=== PATIENT | female | born 1950 | race Caucasian/White ===

== ENCOUNTER → 2017-09-29 14:28 | Outpatient (CLI) | payer MEDICARE, SELFPAY ==
[2017-09-29 14:47] LABS: Hematocrit 41.3 % (37-47); Hemoglobin 13.3 g/dl (12.0-15.0); Mean Corp Hgb Conc 32.2 g/gl (32-36); Mean Corpuscular Hgb 29.8 pg (27.0-32.0); Mean Corpuscular Volume 92.4 fL (81-99); Mean Platelet Vol. 11.4 fl (6.2-12.0); Platelet Count 387 K/mm3 (150-450); RBC Distribution Width CV 14.5 % (11.6-14.6); RBC Distribution Width SD 47.7 fl (35.1-43.9); Red Blood Count 4.47 M/mm3 (4.2-5.4); White Blood Count 5.4 K/mm3 (4.4-11.0)
[2017-09-29 14:48] LABS: Scan Indicated on CBC? Y/N NO
[2017-09-29 15:03] LABS: Anion Gap 12 (5-15); BUN 16 mg/dL (7-18); BUN/Creat Ratio 32.8 RATIO (10-20); Calcium,Total 9.3 mg/dL (8.5-10.1); Chloride 104 mmol/L (98-107); Cholesterol 173 mg/dL (200); Creatinine, Serum 0.49 mg/dL (0.55-1.02); EST Glomerular Filtration Rate 134 mL/min (>60); Est Glom Filt Rate - Afr Amer 162 mL/min (>60); Glucose 210 mg/dL (74-106); High Density Lipoprotein 39 mg/dL; Sodium Level 139 mmol/L (136-145); Triglycerides 200 mg/dL; Very Low Density Lipoprotein 40 mg/dL (5-40)
[2017-09-29 15:10] LABS: Hemoglobin A1c 7.4 % (4.2-6.3)
[2017-09-29 15:12] LABS: Microalbumin,Random Urine 40.2 mg/L (NO RANGE EST.); Microalbumin:Creatinine Ratio 53.7 mg/g CRE (<30 mg/g CRE)
== END ==
PROVIDERS: Family Provider Internal Medicine; PCP Internal Medicine; Visit Provider Internal Medicine
DX: Z51.81 Encounter for therapeutic drug level monitoring (principal); Z79.01 Long term (current) use of anticoagulants; E11.69 Type 2 diabetes mellitus with other specified complication; E78.5 Hyperlipidemia, unspecified; E11.65 Type 2 diabetes mellitus with hyperglycemia; I10 Essential (primary) hypertension
CPT/HCPCS: 80048; 80061; 82043; 82570; 83036; 85027

== ENCOUNTER 2017-10-11 19:41 | Inpatient (IN) | payer MEDICARE, SELFPAY ==
[2017-10-11] VITALS (9 sets, daily range): BP systolic 88–132; BP diastolic 53–94; PULSE 84–110; RESP 17–23; TEMP 38.3–39.6; O2SAT 94–100; BMI 23.7
--- NOTE | 2017-10-11 19:57 | EKG12_ITS ---
Test Reason : FEVER Blood Pressure : / mmHG Vent. Rate : 105 BPM Atrial Rate : 105 BPM P-R Int : 156 ms QRS Dur : 104 ms QT Int : 348 ms P-R-T Axes : 057 -27 083 degrees QTc Int : 459 ms Sinus tachycardia with occasional Premature ventricular complexes Inferior infarct , age undetermined Abnormal ECG Confirmed by APRYL RAMOS, EDWIN ([id number]), managing editor LINDA RICHARDSON ([id number]) on 10/13/2017 2:13:01 PM Referred By: LEVI Confirmed By:EDWIN PINK MD
--- NOTE | 2017-10-11 20:10 | RAD_ITS ---
STUDY: X-RAY CHEST REASON FOR EXAM: Female, 67 years old. FEVER OF 105 WITH DARK URINE TECHNIQUE: Single frontal view of the chest. COMPARISON: April 11, 2001 FINDINGS: Chronic appearing increased interstitial lung markings. Multiple median sternotomy wires are noted consistent for cardiac surgery. There is an elevated right hemidiaphragm. There is no demonstrated pleural abnormality. Enlarged heart size. Normal mediastinum and rahat. Normal visualized pulmonary arteries. There is atherosclerotic calcification of the aortic arch with tortuosity. There are diffuse degenerative changes of the visualized thoracic spine. There is degenerative osteoarthritis of the bilateral shoulders. There is no demonstrated abnormality of the visualized soft tissue structures of the upper abdomen. RAD/Chest 1 View (Portable) IMPRESSION: There are no acute findings. Electronically Signed: Dequan Carrillo MD at 20:38 EST , Service support ,
[2017-10-11] MEDS: Acetaminophen 325 MG Tablet 650 MG PO (20:12)
[2017-10-11 20:38] LABS: Bacteria 0 SEEN /hpf (None Seen); Mucous, Urine 0 SEEN /hpf (<or=2+); White Blood Cells 0 SEEN /hpf (0-5)
[2017-10-11 20:44] LABS: Color, Urine Yellow (Yellow); Glucose, Dipstick Normal (Normal); Ketone-Dipstick 15 mg/dl (Negative); Leukocyte Esterase-Dipstick Negative /ul (Negative); Nitrite-Dipstick Negative (Negative); Occult Blood-Urine 250 /ul (Negative); Protein-Dipstick 100 mg/dl (Negative); Urine Bilirubin Dipstick Negative (Negative); Urine Clarity Clear (Clear); Urine Urobilinogen Normal (Normal)
[2017-10-11] MEDS: Ceftriaxone 1 GM/50 ML BAG IV (20:46)
[2017-10-11 20:52] LABS: Red Blood Cells-Urine 5-10 SEEN /hpf (0-5)
[2017-10-11 20:53] LABS: Squamous Epithelial Cells - UA 0-5 SEEN /hpf (5-10)
--- NOTE | 2017-10-11 20:55 | CT_ITS ---
STUDY: CT BRAIN WITHOUT CONTRAST REASON FOR EXAM: Female, 67 years old. FEVER OF 105/DARK URINE/SEPTIC RADIATION DOSAGE (If Supplied By Facility): CTDIvol = ( 44.99 ) mGy, DLP = ( 745.49 ) mGycm TECHNIQUE: Transaxial CT imaging of the brain was performed without administration of intravenous contrast material. COMPARISON: 05.11.16. FINDINGS: Normal soft tissue structures. Normal calvarium. There are calcifications around the carotid artery. These are noted in the cavernous carotid arteries. 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 There is an old left basal ganglia lacunar infarct. There is mild cerebral atrophy with widening of the extra-axial spaces and ventricular dilatation. There are areas of decreased attenuation within the white matter tracts of the supratentorial brain, consistent with microvascular disease changes. Normal basal ganglia and thalami. Normal brainstem. There is mild cerebellar atrophy. There is no intracranial hemorrhage. There are no findings of an acute ischemic infarction. There is maxillary and ethmoid sinus disease. CT/Brain/Head without Contrast IMPRESSION: Chronic involutional changes of the brain. There are no acute findings. Electronically Signed: Dequan Carrillo MD at 21:40 EST , Service support ,
[2017-10-11 21:00] LABS: Absolute Lymphocyte Count 0.47 X10^3/ul (0.83-4.51); Absolute Neutrophil Count 7.9 X10^3/uL (2.0-7.7); Basophil# 0.02 X10^3/uL; Basophil% 0.2 % (0-1); Eosinophil# 0.01 X10^3/uL; Eosinophils% 0.1 % (0-5); Hemoglobin 12.3 g/dl (12.0-15.0); Lymphocyte # 0.47 X10^3/ul (4.0); Lymphocyte % 5.3 % (19-41); Mean Corp Hgb Conc 33.2 g/gl (32-36); Mean Corpuscular Hgb 29.5 pg (27.0-32.0); Mean Corpuscular Volume 88.7 fL (81-99); Monocyte# 0.44 X10^3/uL; Neutrophil % 88.9 % (47-70); Platelet Count 212 K/mm3 (150-450); RBC Distribution Width CV 14.2 % (11.6-14.6); RBC Distribution Width SD 45.9 fl (35.1-43.9); Red Blood Count 4.17 M/mm3 (4.2-5.4); White Blood Count 8.9 K/mm3 (4.4-11.0)
[2017-10-11 21:02] LABS: Differential Indicated SCAN CRITERIA MET; POSITIVE COUNT NO; POSITIVE DIFFERENTIAL YES; POSITIVE MORPHOLOGY NO
[2017-10-11 21:05] LABS: International Normalized Ratio 2.8; Prothrombin Time (Protime)PT. 28.7 SECONDS (11.7-14.9)
[2017-10-11 21:07] LABS: Partial Thromboplast Time 74.1 Seconds (24.1-36.2)
[2017-10-11 21:22] LABS: Platelet Estimate ADEQUATE (ADEQ); Red Cell Morphology NORM C+C NORMAL (NORM C&C)
[2017-10-11 21:34] LABS: ALB/GLOB Ratio 0.7 RATIO (0.9-2.4); AST(SGOT) 25 U/L (15-37); Alanine Aminotransfer ALT/SGPT 15 U/L (13-56); Albumin, Serum 2.9 g/dL (3.2-5.0); Alkaline Phosphatase 94 U/L (45-117); Anion Gap 11 (5-15); BUN 19 mg/dL (7-18); CPK Total, Creatine Kinase 139 U/L (26-192); Calcium,Total 8.7 mg/dL (8.5-10.1); Chloride 103 mmol/L (98-107); Creatinine, Serum 0.51 mg/dL (0.55-1.02); EST Glomerular Filtration Rate 126 mL/min (>60); Est Glom Filt Rate - Afr Amer 152 mL/min (>60); Estimated Creatinine Clearance 43.92 ml/min; Globulin 3.9 g/dL (2.2-4.2); Glucose 211 mg/dL (74-106); Potassium 3.8 mmol/L (3.5-5.1); Protein, Total 6.8 g/dL (6.4-8.2); Sodium Level 135 mmol/L (136-145)
[2017-10-11] MEDS: 0.9% Normal Saline 1,000 ML 1000 ML IV ×2 (22:15)
--- NOTE | 2017-10-11 22:33 | ED.DCSUM_ITS ---
- ER Visit Summary Date of Service: 10/11/17 Chief Complaint: Son called EMS because of confusion. History of Present Illness: The patient is a 67 F who appear was been confused for the past 2-3 days. Paramedics noted dark urine. She was unaware that she had a fever. She has minimal complaints. She is not a good informant since she is disoriented. She apparently had a fall on Wednesday striking a step in her garage. She sustained significant trauma with facial swelling over the left maxillary region and temporal region. She is on Coumadin secondary to prosthetic valve. Past history of type 2 diabetes and hypertension. Physical Examination: Patient is febrile with a document temperature 103, heart rate of 105 and respiratory 23. She has abnormal irregular breathing. She has significant trauma to the left side of her face. There is a large subcutaneous hematoma noted. There is no hemotympanum. There is no CSF otorrhea or rhinorrhea. Pupils equal round reactive. There is no loose dentition. There is no TMJ tenderness. Trach is midline. There is no stridor. Lungs revealed no wheeze, rales or rhonchi. Heart is rapid with a click noted secondary to prosthetic valve. Abdomen is soft nontender with no palpable stone mass and diminished bowel sounds. There is no tenderness along the dorsal or lumbar spine. She has equivocal flank pain on the left. Extremities are unremarkable with no evidence of trauma. Skin is remarkable for multiple bruises. She is not alert nor she oriented. Hernias 2 through 12 are intact. Motor and sensory intact. Did not assess gait not able to perform Sobo testing. Test Results: White count is 8.9 thousand with 89 segs and H&H 12.0 and 37.0. INR is 2.8 with a PTT of 74.1. Urine is unremarkable. Chest x-ray is unremarkable with chronic changes. In my opinion the historian volume is limited which limits the interpretation of the x-ray. 5 panels marked for glucose of 211. CPK was obtained because of the dark colored urine and multiple bruises to evaluate for rhabdomyolysis. Her CPK is 139. Emergency Department Course and Treatment: Since patient is confused febrile tachycardic tachypnic sepsis workup was undertaken. Because of the history of head trauma and the fact is on Coumadin CT of the head was obtained. Treatment Plan: She received IV fluids per squad and received 1 g of Rocephin with presumption of urinary tract infection and the fact that she has been incontinent with a fever and dark-colored urine. I was informed at 20-20 that she was hypotensive. She will receive a 30 cc/kg bolus. She is now alert and oriented. By definition she has delirium. Since she is on Coumadin with an INR 2.8 and a PTT of 74.1 lumbar puncture is contraindicated. Disposition: Admit to ICU Impression: 1. Febrile patient with Sirs 2. Hypotension secondary #1 3. Infectious encephalopathy/delirium 4. History of hyperglycemia and type II diabetic 5. High risk medication, Coumadin, INR 2.8 6. Prosthetic valve 7. History of hypertension This note was generated with [employer] dictation software. It may contain incorrect words, spelling, and punctuation that were not noted in review of the chart prior to signing ED Disposition - Plan for ED Patient: Chief Complaint: Fever Referrals: Gwen David MD [Primary Care Provider] -
--- NOTE | 2017-10-11 23:34 | PCM.HP.STD ---
Problem List (1) SIRS (systemic inflammatory response syndrome) Status: Acute History of Present Illness Date of Admission: 10/11/17 Chief Complaint: confusion, febrile illness The patient is a 67 year old female patient who was found by her son to be confused. She had a fall in the garage injuring her face on Wednesday. She states she has been getting worse over the past two weeks. She has been afraid to seek medical care for fear of starting antibiotics and disrupting her Coumadin management. The patient presented with confusion and was a relatively poor historian with a fever of 105 and hypotension. Her initial WBC count is normal however, she does have a left shift. Initial lactate level is normal. Due to mental status changes along with a fever and an unknown source the patient will be admitted to the ICU for further evaluation. Past Medical History Allergies Calcium Channel Blocking Agent Dilt [Calcium Channel Blocking Agents-Win] Allergy (Verified 10/11/17 19:48) Rash Home Medications: Ambulatory Orders Medication Instructions Recorded Atenolol [Tenormin] 50 mg PO DAILY 07/10/13 Gemfibrozil [Lopid] 600 mg PO BIDAC 07/10/13 Lisinopril [Zestril] 10 mg PO DAILY 07/10/13 Metformin HCl [Glucophage] 500 mg PO BIDCM 07/10/13 Simvastatin [Zocor] 40 mg PO QHS 07/10/13 Warfarin Sodium [Coumadin] 4 mg PO TUTHSA 07/10/13 Warfarin Sodium [Coumadin] 6 mg PO SUMOWEFR 07/10/13 Surgical History: no surgical history Smoking Status: Former smoker - *Family History Maternal History Items: No pertinent history Review of Systems Constitutional: Reports: Chills, Fever, Weakness. Denies: Weight Change HEENT: Denies: Head Aches, Sinus Congestion, Sinus Drainage Cardiovascular: Denies: Chest Pain, Palpitations Respiratory: Denies: Cough, Shortness of breath at rest, Sputum production Gastrointestinal: Denies: Abdominal Pain, Nausea, Vomiting Genitourinary: Denies: Dysuria Musculoskeletal: Denies: Joint Pain, Joint Tenderness Skin: Denies: Rash, Wounds Neurological: Reports: Confusion. Denies: Focal weakness, Numbness, Tingling Psychiatric: Denies: Anxiety, Depression, Homicidal Ideations, Suicidal Ideations Hematologic/ Lymphatic: Denies: Easy Bruising, Easy Bleeding VTE Information - Inpt Only VTE Present on Admission: No VTE Mechan Device Prophylaxis: None VTE Pharm Prophylaxis ordered?: Yes - Physical Exam General: Alert, Cooperative, Confused HEENT: Atraumatic, PERRLA, EOMI, Normocephalic Neck: Supple Lungs: Clear to auscultation, Normal air movement Cardiovascular: Regular rate, Regular Rhythm, Normal S1, Normal S2 Abdomen: Bowel Sounds Present, Soft, Non Tender Extremities: No edema, Capillary Refill Less than 3 Seconds Skin: No rashes Musculoskeletal: No Tenderness to Palpation of Joints or Extremities Neurological: Neuro grossly intact Psych/Mental Status: Normal Affect, Appropriate Vital Signs Temp Pulse Resp BP Pulse Ox 101.0 F H 84 20 H 93/54 L 97 10/11/17 23:00 10/11/17 23:00 10/11/17 23:00 10/11/17 23:00 10/11/17 23:00 Oxygen Flow Rate 2 Oxygen Delivery Method Nasal Cannula Weight: 133 lb 13.129 oz Body Mass Index (BMI) 23.7 Laboratory Tests Past 24 Hrs 10/11/17 10/11/17 10/11/17 20:20 20:45 20:45 WBC 8.9 RBC 4.17 L Hgb 12.3 Hct 37.0 MCV 88.7 MCH 29.5 MCHC 33.2 RDW 14.2 RDW Differential 45.9 H Plt Count 212 MPV 10.0 Immature Gran % (Auto) 0.500 Neut % (Auto) 88.9 H Lymph % (Auto) 5.3 L [place] % (Auto) 5.0 Eos % (Auto) 0.1 Baso % (Auto) 0.2 Absolute Neuts (auto) 7.9 H Absolute Lymphs (auto) 0.47 L Total Counted Not Reportable Differential Comment SEE COMMENT Platelet Estimate ADEQUATE RBC Morphology NORM C+C PT 28.7 H INR 2.8 APTT 74.1 H Sodium Potassium Chloride Carbon Dioxide Anion Gap BUN Creatinine Estim Creat Clear Calc Est GFR (MDRD) Af Amer Est GFR (MDRD) Non-Af BUN/Creatinine Ratio Glucose Lactic Acid Calcium Total Bilirubin AST ALT Alkaline Phosphatase Total Creatine Kinase Total Protein Albumin Globulin Albumin/Globulin Ratio Urine Color Yellow Urine Clarity Clear Urine pH 6.0 Ur Specific [place] 1.010 Urine Protein 100 H Urine Glucose (UA) Normal Urine Ketones 15 H Urine Occult Blood 250 H Urine Nitrite Negative Urine Bilirubin Negative Urine Urobilinogen Normal Ur Leukocyte Esterase Negative Urine RBC 5-10 SEEN Urine WBC 0 SEEN Ur Squamous Epith Cells 0-5 SEEN Urine Bacteria 0 SEEN Urine Mucus 0 SEEN 10/11/17 10/11/17 20:45 20:45 WBC RBC Hgb Hct MCV MCH MCHC RDW RDW Differential Plt Count MPV Immature Gran % (Auto) Neut % (Auto) Lymph % (Auto) [place] % (Auto) Eos % (Auto) Baso % (Auto) Absolute Neuts (auto) Absolute Lymphs (auto) Total Counted Differential Comment Platelet Estimate RBC Morphology PT INR APTT Sodium 135 L Potassium 3.8 Chloride 103 Carbon Dioxide 21.0 Anion Gap 11 BUN 19 H Creatinine 0.51 L Estim Creat Clear Calc 43.92 Est GFR (MDRD) Af Amer 152 Est GFR (MDRD) Non-Af 126 BUN/Creatinine Ratio 37.0 H Glucose 211 H Lactic Acid 1.0 Calcium 8.7 Total Bilirubin 0.80 AST 25 ALT 15 Alkaline Phosphatase 94 Total Creatine Kinase 139 Total Protein 6.8 Albumin 2.9 L Globulin 3.9 Albumin/Globulin Ratio 0.7 L Urine Color Urine Clarity Urine pH Ur Specific [place] Urine Protein Urine Glucose (UA) Urine Ketones Urine Occult Blood Urine Nitrite Urine Bilirubin Urine Urobilinogen Ur Leukocyte Esterase Urine RBC Urine WBC Ur Squamous Epith Cells Urine Bacteria Urine Mucus Assessment/Plan Assessment - Acute mental status change - Febrile Illness - SIRS Plan - admit to ICU - Consult Dr Luevano for ICU management - Vancomycin and Rocephin for broad spectrum coverage - CBC, BMP, Lactate, INR in am - IV normal saline at 125cc/hour - continue routine home medications - urine tox screen - LMWH not needed due to therapeutic INR Code Visit Inpatient E&M: 53446 Init Hosp L3
[2017-10-12] VITALS (33 sets, daily range): BP systolic 82–118; BP diastolic 44–79; PULSE 82–103; RESP 17–47; TEMP 37.1–40.2; O2SAT 90–100; BMI 24.3; BMI 24.4
[2017-10-12] MEDS: Acetaminophen 325 MG Tablet 650 MG PO ×4 (01:38→20:04)
[2017-10-12 01:59] LABS: M R Staph aureus DNA By PCR Negative (Negative); Probe Check PASS; Specimen Processing Control PASS
--- NOTE | 2017-10-12 02:24 | NURSING ---
Teaching of pt's chronic conditions postponed at this time until pt clinical status less critical
[2017-10-12 04:15] LABS: Hematocrit 31.9 % (37-47); Hemoglobin 10.6 g/dl (12.0-15.0); Mean Corp Hgb Conc 33.2 g/gl (32-36); Mean Corpuscular Hgb 29.8 pg (27.0-32.0); Mean Corpuscular Volume 89.6 fL (81-99); Mean Platelet Vol. 10.2 fl (6.2-12.0); Platelet Count 189 K/mm3 (150-450); RBC Distribution Width CV 14.4 % (11.6-14.6); Red Blood Count 3.56 M/mm3 (4.2-5.4); White Blood Count 7.4 K/mm3 (4.4-11.0)
[2017-10-12 04:18] LABS: International Normalized Ratio 2.6; Prothrombin Time (Protime)PT. 26.7 SECONDS (11.7-14.9)
[2017-10-12 04:32] LABS: Anion Gap 11 (5-15); BUN 13 mg/dL (7-18); BUN/Creat Ratio 29.9 RATIO (10-20); Chloride 106 mmol/L (98-107); Creatinine, Serum 0.44 mg/dL (0.55-1.02); EST Glomerular Filtration Rate 152 mL/min (>60); Est Glom Filt Rate - Afr Amer 184 mL/min (>60); Estimated Creatinine Clearance 40.07 ml/min; Glucose 182 mg/dL (74-106); Sodium Level 139 mmol/L (136-145)
[2017-10-12 04:39] LABS: Lactic Acid 0.8 mmol/L (0.4-2.0)
[2017-10-12 04:42] LABS: Scan Indicated on CBC? Y/N NO
[2017-10-12] MEDS: 0.9% Normal Saline 1,000 ML 125 ML IV ×2 (05:20→16:05)
[2017-10-12] MEDS: 0.9% NaCl Peripheral Flush Adult/Peds IV (05:20)
[2017-10-12] MEDS: Gemfibrozil 600 MG Tablet PO ×2 (06:32→16:21)
--- NOTE | 2017-10-12 06:33 | PCM.CON.CC ---
Reason for Consult Date of Consultation: 10/12/17 Reason for Consultation: Altered mental status History of Present Illness: The patient is a 67-year-old female, with a history as outlined below, presented to the emergency department on October 11 with altered mentation of 2-3 days duration. Per documentation in the emergency department, the patient was too incoherent to obtain a thorough history. However, as of this morning, the patient is alert and appropriately interactive. She states that she has been ill for the entire month of September with URI symptoms, including rhinorrhea, nasal congestion and cough. She states that she was too afraid to see a doctor, as each time she is placed on antibiotics it interferes with her Coumadin. Over the last 48-72 hours, the patient's symptoms have increased and she became febrile. She also reports feeling confused. She is did sustain a mechanical fall in her home approximately 4 days ago, which led to facial contusions. The patient reports that she has a history of falls and is oftentimes clumsy and uneasy on her feet. She does have a mechanical mitral valve in place, for which she is anticoagulated on Coumadin. She denies a history of alcohol or drug abuse. She denies tobacco abuse. She currently resides with her son. The patient's primary care provider is Dr. David. She reports no known sick contact exposure. She states that she has a history of irritable bowel syndrome and does have intermittent bouts of diarrhea. She does report a history of a mild degree of dysuria and increased urinary frequency. On presentation to the emergency department, the patient was noted to be febrile with a temperature of 103?F. She was tachycardic and hemodynamically stable. She was maintaining appropriate oxygen saturations on room air. Laboratory evaluation revealed no evidence of a leukocytosis. INR was noted to be 2.8. Chemistry profile was largely unremarkable. Urinalysis was unrevealing for the presence of an infection. MRSA screen was negative. CT had revealed chronic involutional changes without acute findings. Prior echocardiogram from January 2016 revealed normal LV size and function with an ejection fraction of 60%. There was a stable appearing [place] prosthetic mitral valve in place. Right ventricular systolic pressure was estimated to be 31 mmHg. Past Medical History Allergies Calcium Channel Blocking Agent Dilt [Calcium Channel Blocking Agents-Win] Allergy (Verified 10/11/17 19:48) Rash Home Medications: Ambulatory Orders Medication Instructions Recorded Atenolol [Tenormin] 50 mg PO DAILY 07/10/13 Gemfibrozil [Lopid] 600 mg PO BIDAC 07/10/13 Lisinopril [Zestril] 10 mg PO DAILY 07/10/13 Metformin HCl [Glucophage] 500 mg PO BIDCM 07/10/13 Simvastatin [Zocor] 40 mg PO QHS 07/10/13 Warfarin Sodium [Coumadin] 4 mg PO TUTHSA 07/10/13 Warfarin Sodium [Coumadin] 6 mg PO SUMOWEFR 07/10/13 Surgical History: no surgical history Smoking Status: Former smoker - *Family History Maternal History Items: No pertinent history Review of Systems Constitutional: Reports: Chills, Fever Eyes: Denies: Blurred vision, Double vision HEENT: Reports: Nasal Congestion, Sinus Drainage Cardiovascular: Denies: Chest Pain, Palpitations Respiratory: Reports: Cough. Denies: Shortness of Breath, Sputum production Gastrointestinal: Reports: Diarrhea. Denies: Abdominal Pain, Nausea, Vomiting Genitourinary: Reports: Dysuria, Frequency Musculoskeletal: Denies: Joint Pain, Joint Tenderness Skin: Denies: Rash, Wounds Neurological: Reports: Balance problems Psychiatric: Denies: Anxiety, Depression, Homicidal Ideations, Suicidal Ideations Hematologic/ Lymphatic: Reports: Easy Bruising Patient Problems: Active and Suspected Problems Bacteremia (Acute) Objective: The patient's most recent lab work, culture data and imaging studies have all been personally reviewed. Respiratory viral panel, blood and urine cultures are pending. - Physical Exam General: Alert, Oriented x3, Cooperative, No apparent distress HEENT: PERRLA, Normocephalic, - - Left facial ecchymoses present Oral: Moist Mucosa, No Gingival or Mucosal Lesions/ Ulcerations, - - Poor dentition Neck: Supple, No Nodes, Trachea Midline Lungs: Normal air movement, No rhonchi, No wheeze, No rales Cardiovascular: Regular rate, Regular Rhythm, Normal S1, Normal S2, Murmur, - - Systolic click Abdomen: Bowel Sounds Present, Soft, Non Tender Extremities: No clubbing, No cyanosis, No edema Skin: - - Facial ecchymoses as noted above Musculoskeletal: No Tenderness to Palpation of Joints or Extremities Lymphatic: No Cervical, Supraclavicular, or Inguinal Adenopathy Neurological: Neuro grossly intact Psych/Mental Status: Normal Affect, Appropriate Vital Signs Temp Pulse Resp BP Pulse Ox 100.7 F H 82 27 H 94/46 L 96 10/12/17 06:00 10/12/17 06:00 10/12/17 06:00 10/12/17 06:00 10/12/17 06:00 Oxygen Flow Rate 1 Oxygen Delivery Method Room Air Weight: 131 lb 2.801 oz Body Mass Index (BMI) 24.3 Intake and Output for Last 24 Hours 10/10/17 10/11/17 10/12/17 23:59 23:59 23:59 Intake Total 2880 / 2880 Output Total 1150 / 1150 Balance 1730 / 1730 Laboratory Tests Past 24 Hrs 10/12/17 10/12/17 10/12/17 00:30 04:00 04:00 WBC 7.4 RBC 3.56 L Hgb 10.6 L Hct 31.9 L MCV 89.6 MCH 29.8 MCHC 33.2 RDW 14.4 RDW Differential 46.0 H Plt Count 189 MPV 10.2 PT INR Sodium 139 Potassium 3.0 L Chloride 106 Carbon Dioxide 22.0 Anion Gap 11 BUN 13 Creatinine 0.44 L Estim Creat Clear Calc 40.07 Est GFR (MDRD) Af Amer 184 Est GFR (MDRD) Non-Af 152 BUN/Creatinine Ratio 29.9 H Glucose 182 H Lactic Acid Calcium 8.0 L MRSA (PCR) Negative 10/12/17 10/12/17 04:00 04:00 WBC RBC Hgb Hct MCV MCH MCHC RDW RDW Differential Plt Count MPV PT 26.7 H INR 2.6 Sodium Potassium Chloride Carbon Dioxide Anion Gap BUN Creatinine Estim Creat Clear Calc Est GFR (MDRD) Af Amer Est GFR (MDRD) Non-Af BUN/Creatinine Ratio Glucose Lactic Acid 0.8 Calcium MRSA (PCR) Clinical Impression(s) from Imaging Studies Chest X-Ray 10/11/17 20:10 IMPRESSION: There are no acute findings. Electronically Signed: Dequan Carrillo MD at 20:38 EST , Service support , ADDENDUM: 10/11/172045 IMPRESSION: There are no acute findings. Electronically Signed: Dequan Carrillo MD at 20:39 EST , Service support , Brain CT 10/11/17 20:55 IMPRESSION: Chronic involutional changes of the brain. There are no acute findings. Electronically Signed: Dequan Carrillo MD at 21:40 EST , Service support , Assessment/Plan Active and Suspected Problems Bacteremia (Acute) RECOMMENDATIONS: 1. Send urine toxicology screen. Check serum TSH level. 2. Hold Coumadin for now. Start DVT prophylaxis with subcu heparin. Monitor INR daily. 3. Potassium repletion. Check serum magnesium level. 4. Continue broad-spectrum antibiotics, pending infectious workup 5. Given the patient's high-grade fevers, will obtain echocardiogram given prosthetic mitral valve history and positive blood cultures 6. Check full respiratory viral panel 7. Hold metformin and start sliding scale insulin coverage 8. Send repeat blood cultures tomorrow IMPRESSIONS: 1. Sepsis 2/2 Gram Positive Bacteremia The patient is currently being maintained on appropriate antibiotics. She has been adequately volume resuscitated at this time. Supplemental IV fluids can be discontinued, pending improvement in the patient's p.o. intake. Given that the patient has a prosthetic mitral valve in place, will obtain surface echocardiogram, given positive blood cultures. Resend blood cultures tomorrow. Infectious diseases consultation is pending. 2. Transient infectious encephalopathy/delirium Likely secondary to #1. However, we will also send toxicology screen and check TSH. A full respiratory viral panel will also be sent. 3. Hypokalemia/hypomagnesemia Electrolyte repletion is underway. Recheck levels in the morning. 4. History of Recurrent Mechanical Falls Recommend formal PT/OT evaluations, once medically stable. 5. History of mechanical mitral valve replacement/hypertension/hyperlipidemia/diabetes Complicates care, management, recovery and prognosis. Hold antihypertensive medications at this time. Discontinue metformin and initiate patient on sliding scale insulin coverage. Hold Coumadin at this time and check INR daily. This note was generated with [employer] software. It may contain incorrect words, spelling, and punctuation that were not noted in checking the note before signing. Code Visit Inpatient E&M: 94137 Init Hosp L3
--- NOTE | 2017-10-12 06:36 | RAD_ITS ---
STUDY: X-RAY CHEST REASON FOR EXAM: Female, 67 years old. Shortness of breath and fever. TECHNIQUE: Single AP portable view of the chest. COMPARISON: Comparison is made with prior examination dated October 11, 2017. FINDINGS: EKG electrodes are seen. Stable elevation of the right hemidiaphragm. Mild increase in linear markings most likely chronic in nature. There has been essentially no change. There is no demonstrated pleural abnormality. Sternal cerclage wires and vascular clips are present from a prior sternotomy and coronary artery bypass graft procedure (CABG). Normal mediastinum and rahat. Normal visualized pulmonary arteries. There is atherosclerotic calcification of the aortic arch with tortuosity. There are degenerative changes of the visualized thoracic spine. Prior pinning of the fracture of the proximal left humerus with a marked degree of joint space narrowing of the left shoulder. There is no demonstrated abnormality of the visualized soft tissue structures of the upper abdomen. RAD/Chest 1 View (Portable) IMPRESSION: Stable examination. Electronically Signed: Abelino Davenport MD at 8:18 EST Tel [phone], Service support ,
--- NOTE | 2017-10-12 06:44 | ECHOD_ITS ---
Reason For Study: MURMUR Procedure This was a 2D Doppler, Color Flow transthoracic echocardiogram. Exam performed portable in ICU/CCU. Left Ventricle Normal LV size. Left ventricular systolic function is normal. The estimated ejection fraction is 60 %. No evidence for diastolic dysfunction. No regional wall motion abnormalities noted. Right Ventricle Normal RV size. Normal systolic function. Atria Normal left atrium. Normal right atrium. Mitral Valve Stable appearing mechanical mitral valve apparatus. Tricuspid Valve Normal tricuspid valve. Mild (1+) tricuspid valve insufficiency. Pulmonary artery systolic pressure is 37 mmHg. Aortic Valve Trisinus/trileaflet aortic valve. Peak aortic valve gradient 27 mmHg. Mean aortic valve gradient 16 mmHg. Mild aortic stenosis. Pulmonic Valve Normal pulmonic valve. Great Vessels Normal aortic root. The pulmonary artery is normal size. Normal inferior vena cava. Pericardium/Pleural No pericardial effusion. MMode/2D Measurements & Calculations LVIDd: 4.8 cm IVSd: 1.0 cm LVOT diam: 1.9 cm LVIDs: 3.4 cm LVPWd: 1.2 cm LVOT area: 2.8 cm2 RVDd: 2.6 cm FS: 28.3 % Ao root diam: 3.3 cm LAV(MOD-sp4): 61.0 ml EDV(MOD-sp4): 82.8 ml LA dimension: 4.5 cm ESV(MOD-sp4): 29.8 ml EF(MOD-sp4): 64.0 % EDV(MOD-sp2): 64.3 ml SV(MOD-sp4): 53.0 ml SV(MOD-sp2): 44.4 ml EF(MOD-sp2): 69.1 % Aortic Valve Planimetry: 1.2 cm2 LA A4 area: 20.9 cm2 RA A4 area: 15.7 cm2 Doppler Measurements & Calculations MV E max lisa: 154.3 cm/sec MV V2 max: 171.0 cm/sec Ao V2 max: 262.4 cm/sec MV A max lisa: 71.3 cm/sec MV max P.7 mmHg Ao max P.5 mmHg MV E/A: 2.2 MV V2 mean: 98.5 cm/sec Ao V2 mean: 183.7 cm/sec MV mean P.5 mmHg Ao mean P.4 mmHg MV V2 VTI: 30.7 cm Ao V2 VTI: 45.2 cm MVA(VTI): 1.9 cm2 HKAEEM(I,D): 1.3 cm2 HAKEEM(V,D): 1.2 cm2 LV V1 max: 108.8 cm/sec SV(LVOT): 57.7 ml PA V2 max: 119.0 cm/sec LV V1 max P.7 mmHg LV V1 mean P.5 mmHg LV V1 mean: 73.9 cm/sec LV V1 VTI: 20.7 cm PI end-d lisa: 107.5 cm/sec TR max lisa: 284.3 cm/sec TR max P.3 mmHg Interpretation Summary Normal LV size. Left ventricular systolic function is normal. The estimated ejection fraction is 60 %. Mean aortic valve gradient 16 mmHg. Stable appearing mechanical mitral valve apparatus. Compared to prior study, there is no significant change. Ordering Physician: Donnie Luevano D.O. Referring Physician: Gwen David Performed By: Maru Amos, RDCS, RVT
--- NOTE | 2017-10-12 06:51 | CON.PCM_ITS ---
Reason for Consult Date of Consultation: 10/12/17 Reason for Consultation: Altered mental status History of Present Illness: The patient is a 67-year-old female, with a history as outlined below, presented to the emergency department on October 11 with altered mentation of 2 -3 days duration. Per documentation in the emergency department, the patient was too incoherent to obtain a thorough history. However, as of this morning, the patient is alert and appropriately interactive. She states that she has been ill for the entire month of September with URI symptoms, including rhinorrhea, nasal congestion and cough. She states that she was too afraid to see a doctor, as each time she is placed on antibiotics it interferes with her Coumadin. Over the last 48-72 hours, the patient's symptoms have increased and she became febrile. She also reports feeling confused. She is did sustain a mechanical fall in her home approximately 4 days ago, which led to facial contusions. The patient reports that she has a history of falls and is oftentimes clumsy and uneasy on her feet. She does have a mechanical mitral valve in place, for which she is anticoagulated on Coumadin. She denies a history of alcohol or drug abuse. She denies tobacco abuse. She currently resides with her son. The patient's primary care provider is Dr. David. She reports no known sick contact exposure. She states that she has a history of irritable bowel syndrome and does have intermittent bouts of diarrhea. She does report a history of a mild degree of dysuria and increased urinary frequency. On presentation to the emergency department, the patient was noted to be febrile with a temperature of 103?F. She was tachycardic and hemodynamically stable. She was maintaining appropriate oxygen saturations on room air. Laboratory evaluation revealed no evidence of a leukocytosis. INR was noted to be 2.8. Chemistry profile was largely unremarkable. Urinalysis was unrevealing for the presence of an infection. MRSA screen was negative. CT had revealed chronic involutional changes without acute findings. Prior echocardiogram from January 2016 revealed normal LV size and function with an ejection fraction of 60%. There was a stable appearing [place] prosthetic mitral valve in place. Right ventricular systolic pressure was estimated to be 31 mmHg. Past Medical History Allergies Calcium Channel Blocking Agent Dilt [Calcium Channel Blocking Agents-Win] Allergy (Verified 10/11/17 19:48) Rash Home Medications: Ambulatory Orders Medication Instructions Recorded Atenolol [Tenormin] 50 mg PO DAILY 07/10/13 Gemfibrozil [Lopid] 600 mg PO BIDAC 07/10/13 Lisinopril [Zestril] 10 mg PO DAILY 07/10/13 Metformin HCl [Glucophage] 500 mg PO BIDCM 07/10/13 Simvastatin [Zocor] 40 mg PO QHS 07/10/13 Warfarin Sodium [Coumadin] 4 mg PO TUTHSA 07/10/13 Warfarin Sodium [Coumadin] 6 mg PO SUMOWEFR 07/10/13 Surgical History: no surgical history Smoking Status: Former smoker - *Family History Maternal History Items: No pertinent history Review of Systems Constitutional: Reports: Chills, Fever Eyes: Denies: Blurred vision, Double vision HEENT: Reports: Nasal Congestion, Sinus Drainage Cardiovascular: Denies: Chest Pain, Palpitations Respiratory: Reports: Cough. Denies: Shortness of Breath, Sputum production Gastrointestinal: Reports: Diarrhea. Denies: Abdominal Pain, Nausea, Vomiting Genitourinary: Reports: Dysuria, Frequency Musculoskeletal: Denies: Joint Pain, Joint Tenderness Skin: Denies: Rash, Wounds Neurological: Reports: Balance problems Psychiatric: Denies: Anxiety, Depression, Homicidal Ideations, Suicidal Ideations Hematologic/ Lymphatic: Reports: Easy Bruising Patient Problems: Active and Suspected Problems Bacteremia (Acute) Objective: The patient's most recent lab work, culture data and imaging studies have all been personally reviewed. Respiratory viral panel, blood and urine cultures are pending. - Physical Exam General: Alert, Oriented x3, Cooperative, No apparent distress HEENT: PERRLA, Normocephalic, - - Left facial ecchymoses present Oral: Moist Mucosa, No Gingival or Mucosal Lesions/ Ulcerations, - - Poor dentition Neck: Supple, No Nodes, Trachea Midline Lungs: Normal air movement, No rhonchi, No wheeze, No rales Cardiovascular: Regular rate, Regular Rhythm, Normal S1, Normal S2, Murmur, - - Systolic click Abdomen: Bowel Sounds Present, Soft, Non Tender Extremities: No clubbing, No cyanosis, No edema Skin: - - Facial ecchymoses as noted above Musculoskeletal: No Tenderness to Palpation of Joints or Extremities Lymphatic: No Cervical, Supraclavicular, or Inguinal Adenopathy Neurological: Neuro grossly intact Psych/Mental Status: Normal Affect, Appropriate Vital Signs Temp Pulse Resp BP Pulse Ox 100.7 F H 82 27 H 94/46 L 96 10/12/17 06:00 10/12/17 06:00 10/12/17 06:00 10/12/17 06:00 10/12/17 06:00 Oxygen Flow Rate 1 Oxygen Delivery Method Room Air Weight: 131 lb 2.801 oz Body Mass Index (BMI) 24.3 Intake and Output for Last 24 Hours 10/10/17 10/11/17 10/12/17 23:59 23:59 23:59 Intake Total 2880 / 2880 Output Total 1150 / 1150 Balance 1730 / 1730 Laboratory Tests Past 24 Hrs 10/12/17 10/12/17 10/12/17 00:30 04:00 04:00 WBC 7.4 RBC 3.56 L Hgb 10.6 L Hct 31.9 L MCV 89.6 MCH 29.8 MCHC 33.2 RDW 14.4 RDW Differential 46.0 H Plt Count 189 MPV 10.2 PT INR Sodium 139 Potassium 3.0 L Chloride 106 Carbon Dioxide 22.0 Anion Gap 11 BUN 13 Creatinine 0.44 L Estim Creat Clear Calc 40.07 Est GFR (MDRD) Af Amer 184 Est GFR (MDRD) Non-Af 152 BUN/Creatinine Ratio 29.9 H Glucose 182 H Lactic Acid Calcium 8.0 L MRSA (PCR) Negative 10/12/17 10/12/17 04:00 04:00 WBC RBC Hgb Hct MCV MCH MCHC RDW RDW Differential Plt Count MPV PT 26.7 H INR 2.6 Sodium Potassium Chloride Carbon Dioxide Anion Gap BUN Creatinine Estim Creat Clear Calc Est GFR (MDRD) Af Amer Est GFR (MDRD) Non-Af BUN/Creatinine Ratio Glucose Lactic Acid 0.8 Calcium MRSA (PCR) Clinical Impression(s) from Imaging Studies Chest X-Ray 10/11/17 20:10 IMPRESSION: There are no acute findings. Electronically Signed: Dequan Carrillo MD at 20:38 EST , Service support , ADDENDUM: 10/11/172045 IMPRESSION: There are no acute findings. Electronically Signed: Dequan Carrillo MD at 20:39 EST , Service support , Brain CT 10/11/17 20:55 IMPRESSION: Chronic involutional changes of the brain. There are no acute findings. Electronically Signed: Dequan Carrillo MD at 21:40 EST , Service support , Assessment/Plan Active and Suspected Problems Bacteremia (Acute) RECOMMENDATIONS: 1. Send urine toxicology screen. Check serum TSH level. 2. Hold Coumadin for now. Start DVT prophylaxis with subcu heparin. Monitor INR daily. 3. Potassium repletion. Check serum magnesium level. 4. Continue broad-spectrum antibiotics, pending infectious workup 5. Given the patient's high-grade fevers, will obtain echocardiogram given prosthetic mitral valve history and positive blood cultures 6. Check full respiratory viral panel 7. Hold metformin and start sliding scale insulin coverage 8. Send repeat blood cultures tomorrow IMPRESSIONS: 1. Sepsis 2/2 Gram Positive Bacteremia The patient is currently being maintained on appropriate antibiotics. She has been adequately volume resuscitated at this time. Supplemental IV fluids can be discontinued, pending improvement in the patient's p.o. intake. Given that the patient has a prosthetic mitral valve in place, will obtain surface echocardiogram, given positive blood cultures. Resend blood cultures tomorrow. Infectious diseases consultation is pending. 2. Transient infectious encephalopathy/delirium Likely secondary to #1. However, we will also send toxicology screen and check TSH. A full respiratory viral panel will also be sent. 3. Hypokalemia/hypomagnesemia Electrolyte repletion is underway. Recheck levels in the morning. 4. History of Recurrent Mechanical Falls Recommend formal PT/OT evaluations, once medically stable. 5. History of mechanical mitral valve replacement/hypertension/hyperlipidemia/ diabetes Complicates care, management, recovery and prognosis. Hold antihypertensive medications at this time. Discontinue metformin and initiate patient on sliding scale insulin coverage. Hold Coumadin at this time and check INR daily. This note was generated with [employer] software. It may contain incorrect words, spelling, and punctuation that were not noted in checking the note before signing. Code Visit Inpatient E&M: 66196 Init Hosp L3
[2017-10-12 07:27] LABS: Thyroid Stim Hormone (TSH) 0.44 uIU/mL (0.358-3.74)
--- NOTE | 2017-10-12 07:28 | PN_ITS ---
Subjective: Patient is a 67-year-old lady with history of mechanical mitral valve admitted with acute febrile illness. Patient admitted to the intensive care unit. Blood cultures obtained coming back positive for gram-positive cocci in chains. Patient currently on broad-spectrum antibiotic therapy with vancomycin and cefepime. 2D echo ordered Objective: GENERAL: cooperative HEENT: Clear conjunctiva, NECK; supple, normal thyroid, CHEST: Clear to auscultation bilaterally, HEART: Regular S1 S2, systolic click ABDOMEN: soft, non-tender, normoactive bowel sounds, RECTAL: deferred EXTREMITIES: No edema, no clubbing, no cyanosis. GEOLOGICAL E LOGGER: Awake, no lateralizing signs. SKIN: facial bruising Vitals/I&O's: Vital Signs Temp Pulse Resp BP Pulse Ox 100.7 F H 82 27 H 94/46 L 96 10/12/17 06:00 10/12/17 06:00 10/12/17 06:00 10/12/17 06:00 10/12/17 06:00 Oxygen Flow Rate 1 Oxygen Delivery Method Room Air Weight: 59.5 kg Body Mass Index (BMI) 24.3 Intake and Output for Last 24 Hours 10/10/17 10/11/17 10/12/17 23:59 23:59 23:59 Intake Total 2880 / 2880 Output Total 1150 / 1150 Balance 1730 / 1730 Laboratory Results 10/12/17 00:30: MRSA (PCR) Negative 10/12/17 04:00: WBC 7.4, RBC 3.56 L, Hgb 10.6 L, Hct 31.9 L, MCV 89.6, MCH 29.8 , MCHC 33.2, RDW 14.4, RDW Differential 46.0 H, Plt Count 189, MPV 10.2 10/12/17 04:00: Sodium 139, Potassium 3.0 L, Chloride 106, Carbon Dioxide 22.0, Anion Gap 11, BUN 13, Creatinine 0.44 L, Estim Creat Clear Calc 40.07, Est GFR ( MDRD) Af Amer 184, Est GFR (MDRD) Non-Af 152, BUN/Creatinine Ratio 29.9 H, Glucose 182 H, Calcium 8.0 L 10/12/17 04:00: Lactic Acid 0.8 10/12/17 04:00: PT 26.7 H, INR 2.6 10/12/17 04:00: TSH 0.44 10/12/17 06:45: Urine Opiates Screen Pending, Urine Methadone Screen Pending, Ur Barbiturates Screen Pending, Ur Phencyclidine Scrn Pending, Ur Amphetamines Screen Pending, U Methamphetamin-MDMA Pending, U Benzodiazepines Scrn Pending, Urine Cocaine Screen Pending, U Cannabinoids Screen Pending, Ur Drug Screen Comment Current Medications Acetaminophen (Tylenol) 650 mg PO Q6H PRN PRN PRN Reason: FEVER Last Admin: 10/12/17 01:38 Dose: 650 mg Atorvastatin Calcium (Lipitor) 20 mg PO QHS EFREN Dextrose (D50w Syringe) 0 gm IV X1 PRN; Protocol PRN Reason: Hypoglycemia Gemfibrozil (Lopid) 600 mg PO BIDAC EFREN Last Admin: 10/12/17 06:32 Dose: 600 mg Glucagon () 1 mg IM .X1 PRN PRN Reason: Hypoglycemia Heparin Sodium (Porcine) (Heparin Na) 5,000 unit SC Q8 EFREN Last Admin: 10/12/17 06:39 Dose: 5,000 u Sodium Chloride () 250 mls @ 15 mls/hr IV .[id number] PRN PRN Reason: SALINE FLUSH Vancomycin HCl (Vancomycin) 1,000 mg in 200 mls @ 200 mls/hr IV Q12H EFREN Sodium Chloride () 1,000 mls @ 125 mls/hr IV .Q8H EFREN Last Admin: 10/12/17 05:20 Dose: 125 mls/hr Cefepime HCl 2 gm/ Sodium (Chloride) 100 mls @ 200 mls/hr IV Q8 EFREN Potassium Chloride 40 meq/ (Sodium Chloride) 520 mls @ 130 mls/hr IV Q4H [facility] Stop: 10/12/17 11:29 Insulin Aspart (Novolog Flexpen (Bkc)) 0 units SC ACHS EFREN PRN Reason: Protocol Magnesium Hydroxide (Milk Of Magnesia) 30 ml PO DAILY PRN PRN PRN Reason: Constipation Nutritional Formula (Lactose Free) (Ensure Enlive) 120 ml PO 4X/DAY EFREN Sodium Chloride () 5 - 30 ml IV UD PRN PRN Reason: SALINE FLUSH Last Admin: 10/12/17 05:20 Dose: 10 ml Assessment/Plan Patient is a 67-year-old lady with history of mechanical mitral valve admitted with acute febrile illness. Patient admitted to the intensive care unit. Blood cultures obtained coming back positive for gram-positive cocci in chains. Patient on broad-spectrum antibiotic therapy with vancomycin and cefepime 1. Acute febrile illness: Patient is bacteremic with gram positive cocci in chains transthoracic echo has been ordered to rule out endocarditis patient on vancomycin and cefepime consultation placed to infectious disease 2. History of mitral valve replacement with mechanical valve on systemic anticoagulation with Coumadin INR is therapeutic 3. Recurrent falls with left facial contusion plan is to obtain PT and OT eval once patient medical condition is stabilized 4. Dyslipidemia-patient is on statin therapy, continued at home dose 5. Hypertension patient blood pressure currently on the low side 6. DVT prophylaxis on Coumadin no need for additional measures Code Visit Inpatient E&M: 93865 [facility] Hosp L3
[2017-10-12 07:46] LABS: Magnesium 1.4 mg/dL (1.6-2.6)
[2017-10-12 07:56] LABS: Amphetamine Urine VISTA NEGATIVE (<1000 ng/mL); Barbiturate Urine VISTA NEGATIVE (< 200 ng/mL); Benzodiazepine Urine VISTA NEGATIVE (< 200 ng/mL); Cocaine Urine VISTA NEGATIVE (< 300 ng/mL); Ecstacy Urine VISTA NEGATIVE (< 500 ng/mL); Methadone Urine VISTA NEGATIVE (< 300 ng/mL); PCP Urine VISTA NEGATIVE (< 25 ng/mL); THC Urine VISTA NEGATIVE (< 50 ng/mL); Vista UDS pH Range 6
[2017-10-12 08:26] LABS: Bedside Glucose 127 mg/dL (70-110)
--- NOTE | 2017-10-12 09:41 | CASEMGMT ---
See RN CM Assessment Link. DC Plan: Home. Pt states she is independent, does not use DME, was doing own shopping, ADL's. Nursing did note rings and earrings were dirty on removal, however pt was not unkempt on arrival. -noted pt admits to frequent falls. Will follow PT/OT evaluations for recommendations. Pt was adamant re: returning home. If homebound, may benefit from [facility]. Collin CERONN RN ACM
[2017-10-12] MEDS: Glucerna Shake 120 ML LIQUID PO ×2 (09:58→22:01)
--- NOTE | 2017-10-12 10:54 | PCM.HP.ID ---
Problem List (1) Bacteremia Status: Acute Reason for Consult: (+) bcx Consulted by: Dr. Breaux History of Present Illness: The patient is a 67 year old F with h/o mech MVR in 2001 at [facility], no prior h/o endocarditis, who presented with several weeks of not feeling well. Last dental work was over the summer, and she takes amox as prophylaxis. No current dental problems. Had URI in August, took course of abx, and INR went over 8. For past 2-3 weeks, had some intermittent diffuse abd pain, mild in severity. No blood in stool. Reports normal colonoscopy about 6 years ago and negative guaiac panel since then. Reports some pain with sitting, but this and abd pain have since resolved. Noticed increasing chills over the past week and some increased urine frequency. No dysuria. Only utis in the past have been with nayak placement. Several days ago, tripped and fell at home, bruising her face. Continued to feel worse, so came to ED. Bcx sent, started on vanc and cefepime. Now Bcx with GPC in chains in both sets. No joint or back pain. Full ROS performed and neg except as noted above. - Medical History Allergies/Adverse Reactions: Allergies Calcium Channel Blocking Agent Dilt [Calcium Channel Blocking Agents-Win] Allergy (Verified 10/11/17 19:48) Rash Home Medications: Ambulatory Orders Medication Instructions Recorded Atenolol [Tenormin] 50 mg PO DAILY 07/10/13 Gemfibrozil [Lopid] 600 mg PO BIDAC 07/10/13 Lisinopril [Zestril] 10 mg PO DAILY 07/10/13 Metformin HCl [Glucophage] 500 mg PO BIDCM 07/10/13 Simvastatin [Zocor] 40 mg PO QHS 07/10/13 Warfarin Sodium [Coumadin] 4 mg PO TUTHSA 07/10/13 Warfarin Sodium [Coumadin] 6 mg PO SUMOWEFR 07/10/13 - Social History SMOKING STATUS:: Former smoker Vital Signs Temp Pulse Resp BP Pulse Ox 102.2 F H 93 22 H 118/62 97 10/12/17 08:00 10/12/17 08:00 10/12/17 08:00 10/12/17 08:00 10/12/17 09:21 Oxygen Flow Rate 1 Oxygen Delivery Method Room Air Weight: 59.5 kg Body Mass Index (BMI) 24.3 Microbiology Past 72 Hours 10/12/17 06:50 Respiratory Panel (PCR) - Final Mucosa - Nose Laboratory Tests Past 24 Hrs 10/12/17 10/12/17 10/12/17 00:30 04:00 04:00 WBC 7.4 RBC 3.56 L Hgb 10.6 L Hct 31.9 L MCV 89.6 MCH 29.8 MCHC 33.2 RDW 14.4 RDW Differential 46.0 H Plt Count 189 MPV 10.2 PT INR Sodium 139 Potassium 3.0 L Chloride 106 Carbon Dioxide 22.0 Anion Gap 11 BUN 13 Creatinine 0.44 L Estim Creat Clear Calc 40.07 Est GFR (MDRD) Af Amer 184 Est GFR (MDRD) Non-Af 152 BUN/Creatinine Ratio 29.9 H Glucose 182 H Lactic Acid Calcium 8.0 L Magnesium TSH Urine Opiates Screen Urine Methadone Screen Ur Barbiturates Screen Ur Phencyclidine Scrn Ur Amphetamines Screen U Methamphetamin-MDMA U Benzodiazepines Scrn Urine Cocaine Screen U Cannabinoids Screen Ur Drug Screen Comment MRSA (PCR) Negative 10/12/17 10/12/17 10/12/17 04:00 04:00 04:00 WBC RBC Hgb Hct MCV MCH MCHC RDW RDW Differential Plt Count MPV PT 26.7 H INR 2.6 Sodium Potassium Chloride Carbon Dioxide Anion Gap BUN Creatinine Estim Creat Clear Calc Est GFR (MDRD) Af Amer Est GFR (MDRD) Non-Af BUN/Creatinine Ratio Glucose Lactic Acid 0.8 Calcium Magnesium TSH 0.44 Urine Opiates Screen Urine Methadone Screen Ur Barbiturates Screen Ur Phencyclidine Scrn Ur Amphetamines Screen U Methamphetamin-MDMA U Benzodiazepines Scrn Urine Cocaine Screen U Cannabinoids Screen Ur Drug Screen Comment MRSA (PCR) 10/12/17 10/12/17 04:50 06:45 WBC RBC Hgb Hct MCV MCH MCHC RDW RDW Differential Plt Count MPV PT INR Sodium Potassium Chloride Carbon Dioxide Anion Gap BUN Creatinine Estim Creat Clear Calc Est GFR (MDRD) Af Amer Est GFR (MDRD) Non-Af BUN/Creatinine Ratio Glucose Lactic Acid Calcium Magnesium 1.4 L TSH Urine Opiates Screen NEGATIVE Urine Methadone Screen NEGATIVE Ur Barbiturates Screen NEGATIVE Ur Phencyclidine Scrn NEGATIVE Ur Amphetamines Screen NEGATIVE U Methamphetamin-MDMA NEGATIVE U Benzodiazepines Scrn NEGATIVE Urine Cocaine Screen NEGATIVE U Cannabinoids Screen NEGATIVE Ur Drug Screen Comment MRSA (PCR) - Other Studies Radiology: [] reviewed Other Studies: [] Route of nutrition/ use of supplements: [] Nutritional Intake: [] IV Site: [] Nayak Catheter: [] - Physical Exam General: Alert, Oriented x3, Cooperative, No apparent distress HEENT: Atraumatic, PERRLA, EOMI Neck: Supple, No Nodes Lungs: Clear to auscultation, Normal air movement Cardiovascular: Regular rate, Regular Rhythm, Murmur Abdomen: Bowel Sounds Present, Soft, Non Tender, Non-Distended Extremities: No edema Skin: No rashes, - - no janeway/osler/splinter hemorrhages on hands or feet. IV Site: Peripheral, without redness Musculoskeletal: No Tenderness to Palpation of Joints or Extremities - including spine Neurological: Cranial nerves II-XII grossly intact - Assessment/Plan Antibiotics: [] Assessment/Plan: [] Strep-like bacteremia with h/o mech MVR - given recent abd pain, possible GI source. No dental issues. Lungs and cxr are clear. Fever and tachycardia on presentation. Hypotension improved. Murmur present, but no other sign of endocarditis on exam. TTE pending. Will repeat bcx today. Cont vanc and cefepime. Thank you, will follow.
[2017-10-12 12:00] LABS: Bedside Glucose 211 mg/dL (70-110)
--- NOTE | 2017-10-12 14:00 | NURSING ---
call from pts dtr Jenni. She states she is concerned w/pt's living conditions. when I walked into the house when they called to say they had called the ambulance, all I could smell was urine and feces. She states she has called [employer] but hasn't heard back. She is concerned the pt is sacrificing her own health for her brother(pts son who lives w/and is to be caring for the pt). MACHINE TOOL REBUILDER notified.
[2017-10-12 14:20] LABS: Vancomycin, Trough Level 4.3 ug/mL (5.0-15.0)
--- NOTE | 2017-10-12 14:25 | CASEMGMT ---
PATRICIA spoke with RN regarding patient's home situation. RN said when she went to take patient's earrings out they were dirty and patient's nails were dirty. Patient's daughter, Jenni came to see patient. She spoke with RN and she said their relationship is camryn. Patient's son lives with her and he cannot even care for himself. She said the home is a mess and when you open the door it wreaks of urine and poop. Jenni is concerned that patient is sacrificing herself and her health for her son. RN did explain to her that if patient chooses to live this way we are not able to change this. She understood. Jenni did call Adult Protective Services and is waiting to hear back from them. Patient currently has a fever of 104 and is not feeling well right now and she anticipates her confusion will be returning due to her fever. PATRICIA will follow up with patient when she is feeling better. patient's daughter, Jenni Higgins- [phone] Breana RAYA MSW
[2017-10-12] MEDS: 0.9% NaCl IVPB Med Flush (250 mL) 15 ML IV (16:06)
[2017-10-12 16:26] LABS: Bedside Glucose 203 mg/dL (70-110)
--- NOTE | 2017-10-12 18:36 | NURSING ---
education re chronic illness deferred till pt recovering from acute phase of illness
--- NOTE | 2017-10-12 20:16 | NURSING ---
This RN is unable to get the core temp to work. Tried 2 different cords and unable to visually see that anything is wrong.
[2017-10-12] MEDS: Atorvastatin Calcium 20 MG Tablet PO (21:43)
[2017-10-12 21:51] LABS: Bedside Glucose 217 mg/dL (70-110)
[2017-10-13] VITALS (30 sets, daily range): BP systolic 88–118; BP diastolic 52–81; PULSE 73–133; RESP 16–32; TEMP 36.7–38.4; O2SAT 93–100
[2017-10-13] MEDS: 0.9% Normal Saline 1,000 ML 125 ML IV (00:43)
[2017-10-13] MEDS: Acetaminophen 325 MG Tablet 650 MG PO ×2 (04:17→16:03)
[2017-10-13] MEDS: 0.9% NaCl Peripheral Flush Adult/Peds IV ×3 (04:18→17:41)
[2017-10-13] MEDS: CHLORHEXIDINE GLUC 2% CLOTH 1 EACH TOWELETTE TOPICAL (04:18)
[2017-10-13 04:28] LABS: Hematocrit 27.7 % (37-47); Mean Corp Hgb Conc 32.5 g/gl (32-36); Mean Corpuscular Volume 89.4 fL (81-99); Mean Platelet Vol. 10.4 fl (6.2-12.0); Platelet Count 172 K/mm3 (150-450); RBC Distribution Width CV 14.6 % (11.6-14.6); RBC Distribution Width SD 47.9 fl (35.1-43.9); White Blood Count 5.2 K/mm3 (4.4-11.0)
[2017-10-13 04:29] LABS: Scan Indicated on CBC? Y/N NO
[2017-10-13 04:32] LABS: Prothrombin Time (Protime)PT. 22.1 SECONDS (11.7-14.9)
[2017-10-13 04:35] LABS: Anion Gap 8 (5-15); BUN 10 mg/dL (7-18); BUN/Creat Ratio 26.9 RATIO (10-20); Calcium,Total 7.3 mg/dL (8.5-10.1); Chloride 110 mmol/L (98-107); Creatinine, Serum 0.37 mg/dL (0.55-1.02); EST Glomerular Filtration Rate 183 mL/min (>60); Est Glom Filt Rate - Afr Amer 221 mL/min (>60); Estimated Creatinine Clearance 40.07 ml/min; Glucose 185 mg/dL (74-106); Magnesium 1.4 mg/dL (1.6-2.6); Potassium 3.5 mmol/L (3.5-5.1); Sodium Level 139 mmol/L (136-145)
--- NOTE | 2017-10-13 05:24 | EKG12_ITS ---
Test Reason : CONVERTED TO SR Blood Pressure : / mmHG Vent. Rate : 076 BPM Atrial Rate : 076 BPM P-R Int : 154 ms QRS Dur : 100 ms QT Int : 390 ms P-R-T Axes : 051 -16 048 degrees QTc Int : 438 ms Normal sinus rhythm Low voltage QRS Inferior infarct , age undetermined Abnormal ECG When compared with ECG of 13-OCT-2017 05:16, MANUAL COMPARISON REQUIRED, DATA IS UNCONFIRMED Confirmed by APRYL RAMOS, EDWIN ([id number]), dictionary editor LINDA RICHARDSON ([id number]) on 10/20/2017 1:25:38 PM Referred By: BRIAN Confirmed By:EDWIN PINK MD
[2017-10-13] MEDS: Metoprolol Tartrate 5 MG/5 ML Vial IV (05:55)
--- NOTE | 2017-10-13 06:22 | PN_ITS ---
Subjective: The patient was seen and examined at the bedside this morning. Events from the last 24 hours have been reviewed. The patient remained febrile overnight with a T-max of 104.1?F. She has remained hemodynamically stable and is currently maintaining appropriate oxygen saturations on room air. Potassium and magnesium levels remain low this morning. The patient did develop new onset atrial fibrillation overnight. Objective: The patient's most recent lab work, culture data and imaging studies have all been personally reviewed. Prior echocardiogram from January 2016 revealed normal LV size and function with an ejection fraction of 60%. There was a stable appearing [place] prosthetic mitral valve in place. Right ventricular systolic pressure was estimated to be [address] head revealed chronic involutional changes without acute findings. Initial blood culture dated October 11 was positive for the presence of strep. Repeat blood cultures are currently pending. Respiratory viral panel was negative. Repeat surface echocardiogram dated October 12 revealed normal LV size and function with an ejection fraction of 60%. There was a stable appearing mechanical mitral valve apparatus. Pulmonary artery systolic pressure was estimated to be 37 mmHg. General: Alert, Cooperative, No apparent distress HEENT: Atraumatic, PERRLA, Normocephalic Oral: Moist Mucosa, No Gingival or Mucosal Lesions/ Ulcerations Neck: Supple, No Nodes, Trachea Midline Lungs: Normal air movement, No rhonchi, No wheeze, No rales Cardiovascular: Normal S1, Normal S2, Irregular Rate, Murmur, Tachycardic Abdomen: Bowel Sounds Present, Soft, Non Tender Extremities: No clubbing, No cyanosis, No edema Skin: - - Facial ecchymoses Musculoskeletal: No Tenderness to Palpation of Joints or Extremities Lymphatic: No Cervical, Supraclavicular, or Inguinal Adenopathy Neurological: Neuro grossly intact Psych/Mental Status: Normal Affect, Appropriate Vital Signs Temp Pulse Resp BP Pulse Ox 99.2 F H 129 H 23 H 118/80 97 10/13/17 06:00 10/13/17 06:00 10/13/17 06:00 10/13/17 06:00 10/13/17 06:00 Oxygen Flow Rate 1 Oxygen Delivery Method Room Air Weight: 133 lb 2.547 oz Body Mass Index (BMI) 24.3 Intake and Output for Last 24 Hours 10/11/17 10/12/17 10/13/17 23:59 23:59 23:59 Intake Total 6747 / 6747 1270 / 1270 Output Total 4650 / 4650 750 / 750 Balance 7 / 2097 520 / 520 Labs (Last 48 Hours) 10/12/17 10/12/17 10/12/17 00:30 04:00 04:00 WBC 7.4 RBC 3.56 L Hgb 10.6 L Hct 31.9 L MCV 89.6 MCH 29.8 MCHC 33.2 RDW 14.4 RDW Differential 46.0 H Plt Count 189 MPV 10.2 PT INR Sodium 139 Potassium 3.0 L Chloride 106 Carbon Dioxide 22.0 Anion Gap 11 BUN 13 Creatinine 0.44 L Estim Creat Clear Calc 40.07 Est GFR (MDRD) Af Amer 184 Est GFR (MDRD) Non-Af 152 BUN/Creatinine Ratio 29.9 H Glucose 182 H Lactic Acid Calcium 8.0 L Magnesium TSH Vancomycin Trough Urine Opiates Screen Urine Methadone Screen Ur Barbiturates Screen Ur Phencyclidine Scrn Ur Amphetamines Screen U Methamphetamin-MDMA U Benzodiazepines Scrn Urine Cocaine Screen U Cannabinoids Screen Ur Drug Screen Comment MRSA (PCR) Negative POC Glucose 10/12/17 10/12/17 10/12/17 04:00 04:00 04:00 WBC RBC Hgb Hct MCV MCH MCHC RDW RDW Differential Plt Count MPV PT 26.7 H INR 2.6 Sodium Potassium Chloride Carbon Dioxide Anion Gap BUN Creatinine Estim Creat Clear Calc Est GFR (MDRD) Af Amer Est GFR (MDRD) Non-Af BUN/Creatinine Ratio Glucose Lactic Acid 0.8 Calcium Magnesium TSH 0.44 Vancomycin Trough Urine Opiates Screen Urine Methadone Screen Ur Barbiturates Screen Ur Phencyclidine Scrn Ur Amphetamines Screen U Methamphetamin-MDMA U Benzodiazepines Scrn Urine Cocaine Screen U Cannabinoids Screen Ur Drug Screen Comment MRSA (PCR) POC Glucose 10/12/17 10/12/17 10/12/17 04:50 06:45 08:03 WBC RBC Hgb Hct MCV MCH MCHC RDW RDW Differential Plt Count MPV PT INR Sodium Potassium Chloride Carbon Dioxide Anion Gap BUN Creatinine Estim Creat Clear Calc Est GFR (MDRD) Af Amer Est GFR (MDRD) Non-Af BUN/Creatinine Ratio Glucose Lactic Acid Calcium Magnesium 1.4 L TSH Vancomycin Trough Urine Opiates Screen NEGATIVE Urine Methadone Screen NEGATIVE Ur Barbiturates Screen NEGATIVE Ur Phencyclidine Scrn NEGATIVE Ur Amphetamines Screen NEGATIVE U Methamphetamin-MDMA NEGATIVE U Benzodiazepines Scrn NEGATIVE Urine Cocaine Screen NEGATIVE U Cannabinoids Screen NEGATIVE Ur Drug Screen Comment MRSA (PCR) POC Glucose 127 H 10/12/17 10/12/17 10/12/17 11:43 13:25 16:19 WBC RBC Hgb Hct MCV MCH MCHC RDW RDW Differential Plt Count MPV PT INR Sodium Potassium Chloride Carbon Dioxide Anion Gap BUN Creatinine Estim Creat Clear Calc Est GFR (MDRD) Af Amer Est GFR (MDRD) Non-Af BUN/Creatinine Ratio Glucose Lactic Acid Calcium Magnesium TSH Vancomycin Trough 4.3 L Urine Opiates Screen Urine Methadone Screen Ur Barbiturates Screen Ur Phencyclidine Scrn Ur Amphetamines Screen U Methamphetamin-MDMA U Benzodiazepines Scrn Urine Cocaine Screen U Cannabinoids Screen Ur Drug Screen Comment MRSA (PCR) POC Glucose 211 H 203 H 10/12/17 10/13/17 10/13/17 21:40 04:15 04:15 WBC 5.2 RBC 3.10 L Hgb 9.0 L Hct 27.7 L MCV 89.4 MCH 29.0 MCHC 32.5 RDW 14.6 RDW Differential 47.9 H Plt Count 172 MPV 10.4 PT 22.1 H INR 2.0 Sodium Potassium Chloride Carbon Dioxide Anion Gap BUN Creatinine Estim Creat Clear Calc Est GFR (MDRD) Af Amer Est GFR (MDRD) Non-Af BUN/Creatinine Ratio Glucose Lactic Acid Calcium Magnesium TSH Vancomycin Trough Urine Opiates Screen Urine Methadone Screen Ur Barbiturates Screen Ur Phencyclidine Scrn Ur Amphetamines Screen U Methamphetamin-MDMA U Benzodiazepines Scrn Urine Cocaine Screen U Cannabinoids Screen Ur Drug Screen Comment MRSA (PCR) POC Glucose 217 H 10/13/17 04:15 WBC RBC Hgb Hct MCV MCH MCHC RDW RDW Differential Plt Count MPV PT INR Sodium 139 Potassium 3.5 Chloride 110 H Carbon Dioxide 21.0 Anion Gap 8 BUN 10 Creatinine 0.37 L Estim Creat Clear Calc 40.07 Est GFR (MDRD) Af Amer 221 Est GFR (MDRD) Non-Af 183 BUN/Creatinine Ratio 26.9 H Glucose 185 H Lactic Acid Calcium 7.3 L Magnesium 1.4 L TSH Vancomycin Trough Urine Opiates Screen Urine Methadone Screen Ur Barbiturates Screen Ur Phencyclidine Scrn Ur Amphetamines Screen U Methamphetamin-MDMA U Benzodiazepines Scrn Urine Cocaine Screen U Cannabinoids Screen Ur Drug Screen Comment MRSA (PCR) POC Glucose Microbiology 10/12/17 06:50 Mucosa - Nose Respiratory Panel (PCR) - Final Clinical Impression(s) from Imaging Studies Chest X-Ray 10/11/17 20:10 IMPRESSION: There are no acute findings. Electronically Signed: Dequan Carrillo MD at 20:38 EST , Service support , ADDENDUM: 10/11/17 2046 IMPRESSION: There are no acute findings. Electronically Signed: Dequan Carrillo MD at 20:39 EST , Service support , Brain CT 10/11/17 20:55 IMPRESSION: Chronic involutional changes of the brain. There are no acute findings. Electronically Signed: Dequan Carrillo MD at 21:40 EST , Service support , Chest X-Ray 10/12/17 06:36 IMPRESSION: Stable examination. Electronically Signed: Abelino Davenport MD at 8:18 EST Tel [phone], Service support , Assessment/Plan Active and Suspected Problems Bacteremia (Acute) RECOMMENDATIONS: 1. Give amiodarone bolus and start drip. Cardiology consultation is pending. 2. Maintain serum potassium level greater than 4 and magnesium level greater than 2. 3. Restart Coumadin. Check daily INR. 4. The patient will also be started on a heparin drip, as her INR was noted to be 2.0 this morning. 5. Await repeat blood culture results. If persistently positive, would recommend proceeding with LAURA, giving persistent high-grade fevers. 6. Continue antibiotics per ID recommendations 7. Aggressive electrolyte repletion IMPRESSIONS: 1. Sepsis 2/2 group C strep bacteremia The patient is currently being maintained on appropriate antibiotics, per ID recommendations. She has been adequately volume resuscitated at this time. Supplemental IV fluids can be continued to offset insensible losses, given ongoing fevers. Surface echocardiogram was completed yesterday and was largely unremarkable. However, given the patient's current clinical state and high- grade fevers, recommend proceeding with LAURA. 2. Transient infectious encephalopathy/delirium Likely secondary to #1. Resolved at this time. 3. New Onset Atrial Fibrillation Give amiodarone bolus and start on drip. Ok to restart home coumadin regimen. Continue heparin drip until INR is again therapeutic. Cardiology will see patient today. Maintain serum potassium level greater than 4 and magnesium level greater than 2. 4. Hypokalemia/hypomagnesemia Electrolyte repletion is underway. Recheck levels in the morning. 5. History of Recurrent Mechanical Falls PT/OT to work with patient. 6. History of mechanical mitral valve replacement/hypertension/hyperlipidemia/ diabetes Complicates care, management, recovery and prognosis. Hold antihypertensive medications at this time. Continue sliding scale insulin coverage. This note was generated with [employer] dictation software. It may contain incorrect words, spelling, and punctuation that were not noted in checking the note before signing. Code Visit Inpatient E&M: 76711 Subs Hosp L3
[2017-10-13] MEDS: Gemfibrozil 600 MG Tablet PO (06:56)
--- NOTE | 2017-10-13 07:13 | PN_ITS ---
Patient Problems: Active and Suspected Problems Bacteremia (Acute) Subjective: Patient seen, still appears ill looking. Her blood cultures came back positive for strep pneumo. Still remains febrile went into A. fib with RVR resulting in initiation of amiodarone drip. Objective: GENERAL: cooperative HEENT: Clear conjunctiva, NECK; supple, normal thyroid, CHEST: Clear to auscultation bilaterally, HEART: Regular S1-S2, tachycardic, systolic click ABDOMEN: soft, non-tender, normoactive bowel sounds, RECTAL: deferred EXTREMITIES: No edema, no clubbing, no cyanosis. [employer]OR [employer]ET[employer]: Awake, no lateralizing signs. SKIN: facial bruising Vitals/I&O's: Vital Signs Temp Pulse Resp BP Pulse Ox 99.2 F H 129 H 23 H 118/80 97 10/13/17 06:00 10/13/17 06:00 10/13/17 06:00 10/13/17 06:00 10/13/17 06:00 Oxygen Flow Rate 1 Oxygen Delivery Method Room Air Weight: 60.4 kg Body Mass Index (BMI) 24.3 Intake and Output for Last 24 Hours 10/11/17 10/12/17 10/13/17 23:59 23:59 23:59 Intake Total 6747 / 6747 1270 / 1270 Output Total 4650 / 4650 750 / 750 Balance 2097 / 2097 520 / 520 Microbiology Past 72 Hours 10/12/17 06:50 Mucosa - Nose Respiratory Panel (PCR) - Final Laboratory Results 10/12/17 04:00: TSH 0.44 10/12/17 04:50: Magnesium 1.4 L 10/12/17 06:45: Urine Opiates Screen NEGATIVE, Urine Methadone Screen NEGATIVE, Ur Barbiturates Screen NEGATIVE, Ur Phencyclidine Scrn NEGATIVE, Ur Amphetamines Screen NEGATIVE, U Methamphetamin-MDMA NEGATIVE, U Benzodiazepines Scrn NEGATIVE, Urine Cocaine Screen NEGATIVE, U Cannabinoids Screen NEGATIVE 10/12/17 08:03: POC Glucose 127 H 10/12/17 11:43: POC Glucose 211 H 10/12/17 13:25: Vancomycin Trough 4.3 L 10/12/17 16:19: POC Glucose 203 H 10/12/17 21:40: POC Glucose 217 H 10/13/17 04:15: WBC 5.2, RBC 3.10 L, Hgb 9.0 L, Hct 27.7 L, MCV 89.4, MCH 29.0, MCHC 32.5, RDW 14.6, RDW Differential 47.9 H, Plt Count 172, MPV 10.4 10/13/17 04:15: PT 22.1 H, INR 2.0 10/13/17 04:15: Sodium 139, Potassium 3.5, Chloride 110 H, Carbon Dioxide 21.0, Anion Gap 8, BUN 10, Creatinine 0.37 L, Estim Creat Clear Calc 40.07, Est GFR ( MDRD) Af Amer 221, Est GFR (MDRD) Non-Af 183, BUN/Creatinine Ratio 26.9 H, Glucose 185 H, Calcium 7.3 L, Magnesium 1.4 L Current Medications Acetaminophen (Tylenol) 650 mg PO Q6H PRN PRN PRN Reason: FEVER Last Admin: 10/13/17 04:17 Dose: 650 mg Atorvastatin Calcium (Lipitor) 20 mg PO QHS [facility] Last Admin: 10/12/17 21:43 Dose: 20 mg Chlorhexidine Gluconate () 1 each TOPICAL DAILY [facility] Last Admin: 10/13/17 04:18 Dose: 1 each Dextrose (D50w Syringe) 0 gm IV X1 PRN; Protocol PRN Reason: Hypoglycemia Gemfibrozil (Lopid) 600 mg PO BIDAC [facility] Last Admin: 10/13/17 06:56 Dose: 600 mg Glucagon () 1 mg IM .X1 PRN PRN Reason: Hypoglycemia Heparin Sodium (Porcine) (Heparin Na) 5,000 unit SC Q8 [facility] Last Admin: 10/13/17 05:57 Dose: 5,000 u Sodium Chloride () 250 mls @ 15 mls/hr IV .[id number] PRN PRN Reason: SALINE FLUSH Last Admin: 10/12/17 16:06 Dose: 15 mls/hr Vancomycin HCl (Vancomycin) 1,000 mg in 200 mls @ 200 mls/hr IV Q12H [facility] Last Admin: 10/13/17 00:44 Dose: 200 mls/hr Sodium Chloride () 1,000 mls @ 125 mls/hr IV .Q8H [facility] Last Admin: 10/13/17 05:25 Dose: Not Given Cefepime HCl 2 gm/ Sodium (Chloride) 100 mls @ 200 mls/hr IV Q8 [facility] Last Admin: 10/13/17 05:55 Dose: 200 mls/hr Amiodarone HCl 360 mg/ (Dextrose) 200 mls @ 33.33 mls/hr CONT INF .Q6H1M EFREN PRN Reason: 1 MG/MIN Stop: 10/13/17 12:30 Last Admin: 10/13/17 07:08 Dose: 33.33 mls/hr Amiodarone HCl 360 mg/ (Dextrose) 200 mls @ 16.66 mls/hr CONT INF .Q12H1M EFREN PRN Reason: 0.5 MG/MIN Stop: 10/14/17 06:30 Magnesium Sulfate (4 Gm/100 Ml) 4 gm in 100 mls @ 25 mls/hr IV X1 ONE Stop: 10/13/17 11:02 Insulin Aspart (Novolog Flexpen (Bkc)) 0 units SC ACHS EFREN PRN Reason: Protocol Last Admin: 10/12/17 21:42 Dose: 2 units Magnesium Hydroxide (Milk Of Magnesia) 30 ml PO DAILY PRN PRN PRN Reason: Constipation Nutritional Formula (Lactose Free) (Glucerna Shake) 120 ml PO 4X/DAY [facility] Last Admin: 10/12/17 22:01 Dose: 120 ml Potassium Chloride (K-Dur) 20 meq PO BIDCM [facility] Last Admin: 10/12/17 16:20 Dose: 20 meq Potassium Chloride (K-Dur) 40 meq PO X1 ONE Stop: 10/13/17 07:05 Sodium Chloride () 5 - 30 ml IV UD PRN PRN Reason: SALINE FLUSH Last Admin: 10/13/17 06:56 Dose: 10 ml Assessment/Plan Active and Suspected Problems Bacteremia (Acute) Patient is a 67-year-old lady with history of mechanical mitral valve admitted with acute febrile illness. Patient admitted to the intensive care unit. Blood cultures obtained coming back positive for gram-positive cocci in chains. Patient on broad-spectrum antibiotic therapy with vancomycin and cefepime 1. Strep pneumococcal bacteremia: Patient on broad-spectrum antibiotic therapy with vancomycin and cefepime so still not clear seen by infectious disease notes and recommendations reviewed. Patient transthoracic echo was negative for endocarditis 2. History of mitral valve replacement with mechanical valve on systemic anticoagulation with Coumadin INR is therapeutic 3. Recurrent falls with left facial contusion plan is to obtain PT and OT eval once patient medical condition is stabilized 4. Dyslipidemia-patient is on statin therapy, continued at home dose 5. Hypertension patient blood pressure currently on the low side 6. Paroxysmal A. fib with RVR patient was started on amiodarone drip on continuous telemetry for now with consultation placed to cardiology 7. DVT prophylaxis on Coumadin no need for additional measures Code Visit Inpatient E&M: 59138 Subs Hosp L3
[2017-10-13 08:01] LABS: Bedside Glucose 225 mg/dL (70-110)
[2017-10-13] MEDS: Lactated Ringers 1,000 ML 100 ML IV ×2 (10:25→23:41)
[2017-10-13] MEDS: HEPARIN/D5w 25,000 UNITS 25,000 UNITS/250 ML IV.SOLN. 8 UNITS IV (10:26)
[2017-10-13] MEDS: Glucerna Shake 120 ML LIQUID PO ×3 (10:33→21:30)
[2017-10-13 10:44] LABS: Partial Thromboplast Time 110.6 Seconds (24.1-36.2)
--- NOTE | 2017-10-13 10:59 | PCM.PN.ID ---
Patient Problems: Active and Suspected Problems Bacteremia (Acute) Subjective: Feeling better, feels like fever broke, no rash or n/v/d on iv abx. - Physical Exam General: Alert, Cooperative, No apparent distress Lungs: Clear to auscultation, Normal air movement Cardiovascular: Regular rate, Regular Rhythm, Murmur Abdomen: Soft, Non Tender, Non-Distended Skin: No rashes Vital Signs Temp Pulse Resp BP Pulse Ox 99.2 F H 129 H 23 H 118/80 97 10/13/17 06:00 10/13/17 06:00 10/13/17 06:00 10/13/17 06:00 10/13/17 08:20 Oxygen Flow Rate 1 Oxygen Delivery Method Room Air Weight: 60.4 kg Body Mass Index (BMI) 24.3 Intake and Output for Last 24 Hours 10/11/17 10/12/17 10/13/17 23:59 23:59 23:59 Intake Total 6747 / 6747 1270 / 1270 Output Total 4650 / 4650 750 / 750 Balance 2097 / 2097 520 / 520 Microbiology Past 72 Hours 10/12/17 06:50 Respiratory Panel (PCR) - Final Mucosa - Nose Laboratory Tests Past 24 Hrs 10/12/17 10/13/17 10/13/17 13:25 04:15 04:15 WBC 5.2 RBC 3.10 L Hgb 9.0 L Hct 27.7 L MCV 89.4 MCH 29.0 MCHC 32.5 RDW 14.6 RDW Differential 47.9 H Plt Count 172 MPV 10.4 PT 22.1 H INR 2.0 APTT Sodium Potassium Chloride Carbon Dioxide Anion Gap BUN Creatinine Estim Creat Clear Calc Est GFR (MDRD) Af Amer Est GFR (MDRD) Non-Af BUN/Creatinine Ratio Glucose Calcium Magnesium Vancomycin Trough 4.3 L 10/13/17 10/13/17 04:15 10:15 WBC RBC Hgb Hct MCV MCH MCHC RDW RDW Differential Plt Count MPV PT INR APTT 110.6 H* Sodium 139 Potassium 3.5 Chloride 110 H Carbon Dioxide 21.0 Anion Gap 8 BUN 10 Creatinine 0.37 L Estim Creat Clear Calc 40.07 Est GFR (MDRD) Af Amer 221 Est GFR (MDRD) Non-Af 183 BUN/Creatinine Ratio 26.9 H Glucose 185 H Calcium 7.3 L Magnesium 1.4 L Vancomycin Trough POC Glucose 10/13/17 10/12/17 10/12/17 07:48 21:40 16:19 POC Glucose 225 H 217 H 203 H 10/12/17 11:43 POC Glucose 211 H Route of nutrition/ use of supplements: [] Nutritional Intake: [] IV Site: [] Christiansen Catheter: [] - Assessment/Plan Antibiotics: [] Assessment/Plan: [] Group C strep bacteremia with h/o mech MVR - given recent abd pain, possible GI source. No dental issues. Lungs and cxr are clear. Fever and tachycardia on presentation. Hypotension improved. Murmur present, but no other sign of endocarditis on exam. TTE with no veg. Group C strep does have risk of endocarditis, so recommend LAURA. Will narrow abx to ceftriaxone. D/w pharmacy, will follow.
[2017-10-13 11:26] LABS: Partial Thromboplast Time 83.6 Seconds (24.1-36.2)
[2017-10-13 12:01] LABS: Bedside Glucose 328 mg/dL (70-110)
--- NOTE | 2017-10-13 12:44 | CON.PCM_ITS ---
Problem List (1) Atrial fibrillation Status: Acute (2) Bioprosthetic mitral valve replacement, current hospitalization Status: Acute (3) Bacteremia Status: Acute Reason for Consult Date of Consultation: 10/13/17 Reason for Consultation: Atrial fibrillation, status post mitral valve replacement, bacteremia History of Present Illness: The patient is a 67 year old F, patient of Dr. Gerardo'francisco, with a history of hypertension, diabetes, quit tobacco about 50 years ago, no previous known atrial fibrillation, who underwent mitral valve replacement utilizing a #31 mm [place] mechanical prosthesis at [facility] on 09/29/01. She had no concomitant bypass surgery or stenting in the past. Prior to that she underwent catheterization in 2001 which showed no significant coronary disease and relatively normal pulmonary pressures. She has been seeing Dr. Gerardo regularly, last seen in the office on 01/22/17. At that time she was doing well without any difficulties. She is on lifelong Coumadin therapy as well as atenolol for heart rate and blood pressure control. Over the month of September she developed what appears to be an upper respiratory tract infection and has not felt well most recently over the last 2 weeks. She complained of urinary frequency and urgency, but no dysuria. She also had subjective fevers at home but did not take her temperature over the last 2 weeks. On the day of admission the patient had mental status changes as well as confusion and does not recall how she got to the hospital. She was found to be hypotensive, bacteremic, and atrial fibrillation with rapid ventricular response. Patient was treated with empiric antibiotics and started on IV amiodarone drip for heart rate and rhythm control. Since initiating the amiodarone drip she has converted back to normal sinus rhythm. She reports she is compliant with her medications and is now feeling much better. Echocardiogram is now pending. She had 2 out of 2 bottles positive for group C strep on 10/11/17, with repeat blood cultures pending. Patient denied any syncope, presyncope, lightheadedness, dizziness, chest pain or angina.. [] Past Medical History Allergies/Adverse Reactions: Allergies Calcium Channel Blocking Agent Dilt [Calcium Channel Blocking Agents-Win] Allergy (Verified 10/11/17 19:48) Rash Home Medications: Ambulatory Orders Medication Instructions Recorded Atenolol [Tenormin] 50 mg PO DAILY 11/25/13 Gemfibrozil [Lopid] 600 mg PO BIDAC 07/10/13 Lisinopril [Zestril] 10 mg PO DAILY 07/10/13 Metformin HCl [Glucophage] 500 mg PO BIDCM 07/10/13 Simvastatin [Zocor] 40 mg PO QHS 07/10/13 Warfarin Sodium [Coumadin] 4 mg PO TUTHSA 07/10/13 Warfarin Sodium [Coumadin] 6 mg PO SUMOWEFR 07/10/13 Surgical History: no surgical history - *Family History Maternal History Items: No pertinent history Smoking Status: Former smoker Review of Systems - Review of Systems General: Reports: Fever, Malaise, Chills, Weakness Cardiovascular: Denies: Chest Discomfort, Shortness of Breath, Orthopnea, PND, Peripheral Edema, Palpitations, Lightheadedness, Dizziness, Near Syncope, Syncope Respiratory: Denies: Cough, Sputum Production, Hemoptysis Gastrointestinal: Denies: Hematemesis, Hematochezia, Melena Genitourinary: Denies: Dysuria, Hematuria Skin: Denies: Rash Subjectve: Patient laying in bed, no acute distress. Answers questions appropriately. Objective: Vital Signs Temp Pulse Resp BP Pulse Ox 99.2 F H 83 22 H 101/59 L 99 10/13/17 12:00 10/13/17 12:00 10/13/17 12:00 10/13/17 12:00 10/13/17 12:00 Oxygen Flow Rate 1 Oxygen Delivery Method Room Air Weight: 133 lb 2.547 oz Body Mass Index (BMI) 24.3 Intake and Output for Last 24 Hours 10/11/17 10/12/17 10/13/17 23:59 23:59 23:59 Intake Total 6747 / 6747 2675 / 2675 Output Total 4650 / 4650 2400 / 2400 Balance 2097 / 2097 275 / 275 General: Awake, Alert, Oriented x 3 HEENT: PERRL, EOMI, Sclera Non Icteric Neck: Supple, Good ROM, No Lymph Node Enlargement Lungs: Clear to auscultation Cardiovascular: Regular Rhythm, Normal S1, Normal S2, No Rubs, No Gallops, [place] Prosthetic S1, [place] Prosthetic S2 Vascular: No Carotid Bruits, Normal Femoral Pulses, Normal Radial Pulses, Normal Dorsalis Pedal Pulse, Normal Posterior Tibial Pulses Abdomen: Bowel Sounds Present, Soft, Non Tender, No HSM, No Organomegaly Extremities: No Cyanosis, No Clubbing, No edema Neurological: No Focal Motor or Sensory Deficit 10/13/17 04:15: WBC 5.2, RBC 3.10 L, Hgb 9.0 L, Hct 27.7 L, MCV 89.4, MCH 29.0, MCHC 32.5, RDW 14.6, RDW Differential 47.9 H, Plt Count 172, MPV 10.4 10/13/17 04:15: PT 22.1 H, INR 2.0 10/13/17 04:15: Sodium 139, Potassium 3.5, Chloride 110 H, Carbon Dioxide 21.0, Anion Gap 8, BUN 10, Creatinine 0.37 L, Est GFR (MDRD) Af Amer 221, Est GFR ( MDRD) Non-Af 183, BUN/Creatinine Ratio 26.9 H, Glucose 185 H, Calcium 7.3 L, Magnesium 1.4 L 10/13/17 10:15: APTT 110.6 H* 10/13/17 11:10: APTT 83.6 H Rhythm: EKG: Normal sinus rhythm, no acute changes. ECHO: Pending. Stress Test: Cardiac Cath: PCI: CT Surgery: Holter monitor: EPS: PPM: CXR: Chest CT Scan: Assessment/Plan 1. Mitral valve replacement: The patient has a prosthetic mitral valve, and has no outward signs of endocarditis that I can tell. She does have 2 blood cultures that are positive for strep, and I believe it is reasonable to pursue a transesophageal echocardiogram tomorrow to interrogate her mitral valve as well as her other valves to determine if she has any possible bacterial endocarditis. She is responded very well to IV antibiotic therapy relatively quickly, and her atrial fibrillation has converted back to sinus rhythm. Given her prosthetic mitral valve she requires an INR between 2.5 and 3.5, and would recommend IV heparin drip until her INR has improved above 2.0. 2. Atrial fibrillation: Patient is converted back from atrial flutter relation to normal sinus rhythm. She is on IV amiodarone at this time. Would recommend 24 hours of IV amiodarone. Her echocardiogram is pending and recently showed normal LV function. She remains in normal rhythm, we can discontinue her IV amiodarone tomorrow. Recommend keeping her potassium above 4.0, and magnesium of 2.0 to facilitate normal sinus rhythm. 3. Discussed with Dr. Luevano. Thank you very much for the opportunity to put dissipate in the cardiac care of your patient. Consultation time took place between 1115 and 11:45 AM. Code Visit Inpatient E&M: 51716 Init Hosp L2
--- NOTE | 2017-10-13 13:35 | CASEMGMT ---
SW did speak w/pt this afternoon regarding her home situation. Pt confirms she lives w/her son. She states he had surgery on his back in June and he fell recently. She states when she fell he insisted on picking her up, noticed when he came to visit he is not moving well. SW asked specifically about the cleaning of the home, she states she keeps up w/it, her son does not. She states it's a big house and she's trying to get it cleaned up in case something were to happen to her. SW asked if she looked into hiring someone to help, since it's a big house. She states no. Pt states her cousin offered to help but he is sporadic. SW asked pt about discharge plan, pt plans to go home. She states is waiting for therapy to see her today, she wants to get moving and walk in the hallway. PATRICIA explained that SW and CM will follow along for any discharge needs. SW did call Linda w/[facility], message left. SW remains available for any social service needs. DAVIDSON Schumacher, [employer]
[2017-10-13 16:41] LABS: Partial Thromboplast Time 126.8 Seconds (24.1-36.2)
[2017-10-13 17:36] LABS: Bedside Glucose 228 mg/dL (70-110)
--- NOTE | 2017-10-13 19:15 | NURSING ---
Upon first assessment, heparin gtt running at 500 units/hr. Per RN dayshift report, heparin was initiated at 800 units/hr and decreased by 300 units/hr at 1845.
[2017-10-13] MEDS: Atorvastatin Calcium 20 MG Tablet PO (21:30)
[2017-10-13 21:41] LABS: Bedside Glucose 245 mg/dL (70-110)
[2017-10-14] VITALS (21 sets, daily range): BP systolic 90–125; BP diastolic 51–76; PULSE 69–86; RESP 18–33; TEMP 36.4–37.2; O2SAT 93–100
[2017-10-14 05:07] LABS: Hemoglobin 10.6 g/dl (12.0-15.0); Mean Corp Hgb Conc 33.1 g/gl (32-36); Mean Corpuscular Hgb 29.5 pg (27.0-32.0); Mean Corpuscular Volume 89.1 fL (81-99); Mean Platelet Vol. 10.6 fl (6.2-12.0); Platelet Count 265 K/mm3 (150-450); RBC Distribution Width CV 14.3 % (11.6-14.6); RBC Distribution Width SD 45.6 fl (35.1-43.9); Red Blood Count 3.59 M/mm3 (4.2-5.4); White Blood Count 5.7 K/mm3 (4.4-11.0)
[2017-10-14 05:09] LABS: Scan Indicated on CBC? Y/N NO
[2017-10-14 05:21] LABS: Partial Thromboplast Time 68.9 Seconds (24.1-36.2)
[2017-10-14 05:23] LABS: Anion Gap 7 (5-15); BUN 9 mg/dL (7-18); BUN/Creat Ratio 18.3 RATIO (10-20); Calcium,Total 8.8 mg/dL (8.5-10.1); Chloride 103 mmol/L (98-107); Creatinine, Serum 0.49 mg/dL (0.55-1.02); EST Glomerular Filtration Rate 132 mL/min (>60); Est Glom Filt Rate - Afr Amer 160 mL/min (>60); Estimated Creatinine Clearance 40.07 ml/min; Glucose 247 mg/dL (74-106); Potassium 4.2 mmol/L (3.5-5.1); Sodium Level 136 mmol/L (136-145)
[2017-10-14 05:46] LABS: International Normalized Ratio 1.6; Prothrombin Time (Protime)PT. 18.6 SECONDS (11.7-14.9)
[2017-10-14 06:51] LABS: Bedside Glucose 237 mg/dL (70-110)
--- NOTE | 2017-10-14 06:55 | PCM.PN.INT ---
Subjective: The patient was seen and examined at the bedside this morning. Events from the last 24 hours have been reviewed. The patients fever curve has improved. The patient was febrile overnight with a T-max of 101.2?F. She has, nonetheless, remained hemodynamically stable and on room air. The patient remains on a heparin drip with an INR this morning noted to be 1.6. She remains in normal sinus rhythm with her amiodarone drip scheduled to be stopped today. There are tentative plans to proceed with LAURA today. The patient remains anxious to go home. Objective: The patient's most recent lab work, culture data and imaging studies have all been personally reviewed. Prior echocardiogram from January 2016 revealed normal LV size and function with an ejection fraction of 60%. There was a stable appearing [place] prosthetic mitral valve in place. Right ventricular systolic pressure was estimated to be [address] head revealed chronic involutional changes without acute findings. Initial blood culture dated October 11 was positive for the presence of Group C strep. Repeat blood cultures are currently pending. Respiratory viral panel was negative. Repeat surface echocardiogram dated October 12 revealed normal LV size and function with an ejection fraction of 60%. There was a stable appearing mechanical mitral valve apparatus. Pulmonary artery systolic pressure was estimated to be 37 mmHg. General: Alert, Oriented x3, Cooperative, No apparent distress HEENT: Atraumatic, PERRLA, Normocephalic Oral: No Gingival or Mucosal Lesions/ Ulcerations Neck: Supple, No Nodes, Trachea Midline Lungs: Normal air movement, No rhonchi, No wheeze, No rales Cardiovascular: Regular rate, Regular Rhythm, Normal S1, Normal S2, Murmur Abdomen: Bowel Sounds Present, Soft, Non Tender Extremities: No clubbing, No cyanosis, No edema Skin: - - No significant change from previous Musculoskeletal: No Tenderness to Palpation of Joints or Extremities Lymphatic: No Cervical, Supraclavicular, or Inguinal Adenopathy Neurological: Neuro grossly intact Psych/Mental Status: Alert and oriented to time, place, person, mood and affect Vital Signs Temp Pulse Resp BP Pulse Ox 98.0 F 70 27 H 102/64 94 10/14/17 06:00 10/14/17 06:00 10/14/17 06:00 10/14/17 06:00 10/14/17 06:00 Oxygen Flow Rate 1 Oxygen Delivery Method Room Air Weight: 134 lb 14.766 oz Body Mass Index (BMI) 24.3 Intake and Output for Last 24 Hours 10/12/17 10/13/17 10/14/17 23:59 23:59 23:59 Intake Total 6747 / 6747 4271.2 / 4271.2 684.2 / 684.2 Output Total 4650 / 4650 4750 / 4750 800 / 800 Balance 2097 / 2097 -478.8 / -478.8 -115.8 / -115.8 Labs (Last 48 Hours) 10/12/17 10/12/17 10/12/17 04:00 04:50 06:45 WBC RBC Hgb Hct MCV MCH MCHC RDW RDW Differential Plt Count MPV PT INR APTT Sodium Potassium Chloride Carbon Dioxide Anion Gap BUN Creatinine Estim Creat Clear Calc Est GFR (MDRD) Af Amer Est GFR (MDRD) Non-Af BUN/Creatinine Ratio Glucose Calcium Magnesium 1.4 L TSH 0.44 Vancomycin Trough Urine Opiates Screen NEGATIVE Urine Methadone Screen NEGATIVE Ur Barbiturates Screen NEGATIVE Ur Phencyclidine Scrn NEGATIVE Ur Amphetamines Screen NEGATIVE U Methamphetamin-MDMA NEGATIVE U Benzodiazepines Scrn NEGATIVE Urine Cocaine Screen NEGATIVE U Cannabinoids Screen NEGATIVE Ur Drug Screen Comment POC Glucose 10/12/17 10/12/17 10/12/17 08:03 11:43 13:25 WBC RBC Hgb Hct MCV MCH MCHC RDW RDW Differential Plt Count MPV PT INR APTT Sodium Potassium Chloride Carbon Dioxide Anion Gap BUN Creatinine Estim Creat Clear Calc Est GFR (MDRD) Af Amer Est GFR (MDRD) Non-Af BUN/Creatinine Ratio Glucose Calcium Magnesium TSH Vancomycin Trough 4.3 L Urine Opiates Screen Urine Methadone Screen Ur Barbiturates Screen Ur Phencyclidine Scrn Ur Amphetamines Screen U Methamphetamin-MDMA U Benzodiazepines Scrn Urine Cocaine Screen U Cannabinoids Screen Ur Drug Screen Comment POC Glucose 127 H 211 H 10/12/17 10/12/17 10/13/17 16:19 21:40 04:15 WBC 5.2 RBC 3.10 L Hgb 9.0 L Hct 27.7 L MCV 89.4 MCH 29.0 MCHC 32.5 RDW 14.6 RDW Differential 47.9 H Plt Count 172 MPV 10.4 PT INR APTT Sodium Potassium Chloride Carbon Dioxide Anion Gap BUN Creatinine Estim Creat Clear Calc Est GFR (MDRD) Af Amer Est GFR (MDRD) Non-Af BUN/Creatinine Ratio Glucose Calcium Magnesium TSH Vancomycin Trough Urine Opiates Screen Urine Methadone Screen Ur Barbiturates Screen Ur Phencyclidine Scrn Ur Amphetamines Screen U Methamphetamin-MDMA U Benzodiazepines Scrn Urine Cocaine Screen U Cannabinoids Screen Ur Drug Screen Comment POC Glucose 203 H 217 H 10/13/17 10/13/17 10/13/17 04:15 04:15 07:48 WBC RBC Hgb Hct MCV MCH MCHC RDW RDW Differential Plt Count MPV PT 22.1 H INR 2.0 APTT Sodium 139 Potassium 3.5 Chloride 110 H Carbon Dioxide 21.0 Anion Gap 8 BUN 10 Creatinine 0.37 L Estim Creat Clear Calc 40.07 Est GFR (MDRD) Af Amer 221 Est GFR (MDRD) Non-Af 183 BUN/Creatinine Ratio 26.9 H Glucose 185 H Calcium 7.3 L Magnesium 1.4 L TSH Vancomycin Trough Urine Opiates Screen Urine Methadone Screen Ur Barbiturates Screen Ur Phencyclidine Scrn Ur Amphetamines Screen U Methamphetamin-MDMA U Benzodiazepines Scrn Urine Cocaine Screen U Cannabinoids Screen Ur Drug Screen Comment POC Glucose 225 H 10/13/17 10/13/17 10/13/17 10:15 11:10 11:49 WBC RBC Hgb Hct MCV MCH MCHC RDW RDW Differential Plt Count MPV PT INR APTT 110.6 H* 83.6 H Sodium Potassium Chloride Carbon Dioxide Anion Gap BUN Creatinine Estim Creat Clear Calc Est GFR (MDRD) Af Amer Est GFR (MDRD) Non-Af BUN/Creatinine Ratio Glucose Calcium Magnesium TSH Vancomycin Trough Urine Opiates Screen Urine Methadone Screen Ur Barbiturates Screen Ur Phencyclidine Scrn Ur Amphetamines Screen U Methamphetamin-MDMA U Benzodiazepines Scrn Urine Cocaine Screen U Cannabinoids Screen Ur Drug Screen Comment POC Glucose 328 H 10/13/17 10/13/17 10/13/17 16:15 17:20 21:29 WBC RBC Hgb Hct MCV MCH MCHC RDW RDW Differential Plt Count MPV PT INR APTT 126.8 H* Sodium Potassium Chloride Carbon Dioxide Anion Gap BUN Creatinine Estim Creat Clear Calc Est GFR (MDRD) Af Amer Est GFR (MDRD) Non-Af BUN/Creatinine Ratio Glucose Calcium Magnesium TSH Vancomycin Trough Urine Opiates Screen Urine Methadone Screen Ur Barbiturates Screen Ur Phencyclidine Scrn Ur Amphetamines Screen U Methamphetamin-MDMA U Benzodiazepines Scrn Urine Cocaine Screen U Cannabinoids Screen Ur Drug Screen Comment POC Glucose 228 H 245 H 10/13/17 10/14/17 10/14/17 22:40 04:50 04:50 WBC 5.7 RBC 3.59 L Hgb 10.6 L Hct 32.0 L MCV 89.1 MCH 29.5 MCHC 33.1 RDW 14.3 RDW Differential 45.6 H Plt Count 265 MPV 10.6 PT 18.6 H INR 1.6 APTT 87.0 H Sodium Potassium Chloride Carbon Dioxide Anion Gap BUN Creatinine Estim Creat Clear Calc Est GFR (MDRD) Af Amer Est GFR (MDRD) Non-Af BUN/Creatinine Ratio Glucose Calcium Magnesium TSH Vancomycin Trough Urine Opiates Screen Urine Methadone Screen Ur Barbiturates Screen Ur Phencyclidine Scrn Ur Amphetamines Screen U Methamphetamin-MDMA U Benzodiazepines Scrn Urine Cocaine Screen U Cannabinoids Screen Ur Drug Screen Comment POC Glucose 10/14/17 10/14/17 10/14/17 04:50 04:50 06:47 WBC RBC Hgb Hct MCV MCH MCHC RDW RDW Differential Plt Count MPV PT INR APTT 68.9 H Sodium 136 Potassium 4.2 Chloride 103 Carbon Dioxide 26.0 Anion Gap 7 BUN 9 Creatinine 0.49 L Estim Creat Clear Calc 40.07 Est GFR (MDRD) Af Amer 160 Est GFR (MDRD) Non-Af 132 BUN/Creatinine Ratio 18.3 Glucose 247 H Calcium 8.8 Magnesium TSH Vancomycin Trough Urine Opiates Screen Urine Methadone Screen Ur Barbiturates Screen Ur Phencyclidine Scrn Ur Amphetamines Screen U Methamphetamin-MDMA U Benzodiazepines Scrn Urine Cocaine Screen U Cannabinoids Screen Ur Drug Screen Comment POC Glucose 237 H Microbiology 10/12/17 06:50 Mucosa - Nose Respiratory Panel (PCR) - Final Clinical Impression(s) from Imaging Studies Chest X-Ray 10/11/17 20:10 IMPRESSION: There are no acute findings. Electronically Signed: Dequan Carrillo MD at 20:38 EST , Service support , ADDENDUM: 10/11/172045 IMPRESSION: There are no acute findings. Electronically Signed: Dequan Carrillo MD at 20:39 EST , Service support , Brain CT 10/11/17 20:55 IMPRESSION: Chronic involutional changes of the brain. There are no acute findings. Electronically Signed: Dequan Carrillo MD at 21:40 EST , Service support , Chest X-Ray 10/12/17 06:36 IMPRESSION: Stable examination. Electronically Signed: Abelino Davenport MD at 8:18 EST Tel [phone], Service support , Assessment/Plan Active and Suspected Problems Bacteremia (Acute) Atrial fibrillation (Acute) Bioprosthetic mitral valve replacement, current hospitalization (Acute) RECOMMENDATIONS: 1. Amiodarone will be discontinued today. 2. Maintain serum potassium level greater than 4 and magnesium level greater than 2. 3. Continue Coumadin and heparin drip. Check daily INR. Goal INR should be close to 3. 4. Await repeat blood culture results. There are plans for transesophageal echocardiogram today. 5. Continue antibiotics per ID recommendations 6. Encourage incentive spirometer use and mobilize patient as tolerated IMPRESSIONS: 1. Sepsis 2/2 group C strep bacteremia The patient is currently being maintained on appropriate antibiotics, per ID recommendations. She has been adequately volume resuscitated at this time. Supplemental IV fluids can be continued to offset insensible losses, given ongoing fevers. Surface echocardiogram was completed yesterday and was largely unremarkable. However, given the patient's current clinical state and persistent fevers, a transesophageal echocardiogram will be completed today. 2. Transient infectious encephalopathy/delirium Likely secondary to #1. Resolved at this time. 3. New Onset Atrial Fibrillation Resolved. The patient did respond to the use of amiodarone and subsequently converted back to normal sinus rhythm. Amiodarone can be discontinued today. The patient's Coumadin will be continued along with the heparin drip until her INR is 2.5-3.5. Maintain serum potassium level greater than 4 and magnesium level greater than 2. 4. History of Recurrent Mechanical Falls PT/OT to work with patient. Case management to assist with disposition needs. 5. History of mechanical mitral valve replacement/hypertension/hyperlipidemia/diabetes Complicates care, management, recovery and prognosis. Continue sliding scale insulin coverage. This note was generated with [employer] dictation software. It may contain incorrect words, spelling, and punctuation that were not noted in checking the note before signing. Code Visit Inpatient E&M: 93678 Subs Hosp L2
--- NOTE | 2017-10-14 07:03 | PN_ITS ---
Subjective: The patient was seen and examined at the bedside this morning. Events from the last 24 hours have been reviewed. The patients fever curve has improved. The patient was febrile overnight with a T-max of 101.2?F. She has, nonetheless, remained hemodynamically stable and on room air. The patient remains on a heparin drip with an INR this morning noted to be 1.6. She remains in normal sinus rhythm with her amiodarone drip scheduled to be stopped today. There are tentative plans to proceed with LAURA today. The patient remains anxious to go home. Objective: The patient's most recent lab work, culture data and imaging studies have all been personally reviewed. Prior echocardiogram from January 2016 revealed normal LV size and function with an ejection fraction of 60%. There was a stable appearing [place] prosthetic mitral valve in place. Right ventricular systolic pressure was estimated to be [address] head revealed chronic involutional changes without acute findings. Initial blood culture dated October 11 was positive for the presence of Group C strep. Repeat blood cultures are currently pending. Respiratory viral panel was negative. Repeat surface echocardiogram dated October 12 revealed normal LV size and function with an ejection fraction of 60%. There was a stable appearing mechanical mitral valve apparatus. Pulmonary artery systolic pressure was estimated to be 37 mmHg. General: Alert, Oriented x3, Cooperative, No apparent distress HEENT: Atraumatic, PERRLA, Normocephalic Oral: No Gingival or Mucosal Lesions/ Ulcerations Neck: Supple, No Nodes, Trachea Midline Lungs: Normal air movement, No rhonchi, No wheeze, No rales Cardiovascular: Regular rate, Regular Rhythm, Normal S1, Normal S2, Murmur Abdomen: Bowel Sounds Present, Soft, Non Tender Extremities: No clubbing, No cyanosis, No edema Skin: - - No significant change from previous Musculoskeletal: No Tenderness to Palpation of Joints or Extremities Lymphatic: No Cervical, Supraclavicular, or Inguinal Adenopathy Neurological: Neuro grossly intact Psych/Mental Status: Alert and oriented to time, place, person, mood and affect Vital Signs Temp Pulse Resp BP Pulse Ox 98.0 F 70 27 H 102/64 94 10/14/17 06:00 10/14/17 06:00 10/14/17 06:00 10/14/17 06:00 10/14/17 06:00 Oxygen Flow Rate 1 Oxygen Delivery Method Room Air Weight: 134 lb 14.766 oz Body Mass Index (BMI) 24.3 Intake and Output for Last 24 Hours 10/12/17 10/13/17 10/14/17 23:59 23:59 23:59 Intake Total 6747 / 6747 4271.2 / 4271.2 684.2 / 684.2 Output Total 4650 / 4650 4750 / 4750 800 / 800 Balance 2097 / 2097 -478.8 / -478.8 -115.8 / -115.8 Labs (Last 48 Hours) 10/12/17 10/12/17 10/12/17 04:00 04:50 06:45 WBC RBC Hgb Hct MCV MCH MCHC RDW RDW Differential Plt Count MPV PT INR APTT Sodium Potassium Chloride Carbon Dioxide Anion Gap BUN Creatinine Estim Creat Clear Calc Est GFR (MDRD) Af Amer Est GFR (MDRD) Non-Af BUN/Creatinine Ratio Glucose Calcium Magnesium 1.4 L TSH 0.44 Vancomycin Trough Urine Opiates Screen NEGATIVE Urine Methadone Screen NEGATIVE Ur Barbiturates Screen NEGATIVE Ur Phencyclidine Scrn NEGATIVE Ur Amphetamines Screen NEGATIVE U Methamphetamin-MDMA NEGATIVE U Benzodiazepines Scrn NEGATIVE Urine Cocaine Screen NEGATIVE U Cannabinoids Screen NEGATIVE Ur Drug Screen Comment POC Glucose 10/12/17 10/12/17 10/12/17 08:03 11:43 13:25 WBC RBC Hgb Hct MCV MCH MCHC RDW RDW Differential Plt Count MPV PT INR APTT Sodium Potassium Chloride Carbon Dioxide Anion Gap BUN Creatinine Estim Creat Clear Calc Est GFR (MDRD) Af Amer Est GFR (MDRD) Non-Af BUN/Creatinine Ratio Glucose Calcium Magnesium TSH Vancomycin Trough 4.3 L Urine Opiates Screen Urine Methadone Screen Ur Barbiturates Screen Ur Phencyclidine Scrn Ur Amphetamines Screen U Methamphetamin-MDMA U Benzodiazepines Scrn Urine Cocaine Screen U Cannabinoids Screen Ur Drug Screen Comment POC Glucose 127 H 211 H 10/12/17 10/12/17 10/13/17 16:19 21:40 04:15 WBC 5.2 RBC 3.10 L Hgb 9.0 L Hct 27.7 L MCV 89.4 MCH 29.0 MCHC 32.5 RDW 14.6 RDW Differential 47.9 H Plt Count 172 MPV 10.4 PT INR APTT Sodium Potassium Chloride Carbon Dioxide Anion Gap BUN Creatinine Estim Creat Clear Calc Est GFR (MDRD) Af Amer Est GFR (MDRD) Non-Af BUN/Creatinine Ratio Glucose Calcium Magnesium TSH Vancomycin Trough Urine Opiates Screen Urine Methadone Screen Ur Barbiturates Screen Ur Phencyclidine Scrn Ur Amphetamines Screen U Methamphetamin-MDMA U Benzodiazepines Scrn Urine Cocaine Screen U Cannabinoids Screen Ur Drug Screen Comment POC Glucose 203 H 217 H 10/13/17 10/13/17 10/13/17 04:15 04:15 07:48 WBC RBC Hgb Hct MCV MCH MCHC RDW RDW Differential Plt Count MPV PT 22.1 H INR 2.0 APTT Sodium 139 Potassium 3.5 Chloride 110 H Carbon Dioxide 21.0 Anion Gap 8 BUN 10 Creatinine 0.37 L Estim Creat Clear Calc 40.07 Est GFR (MDRD) Af Amer 221 Est GFR (MDRD) Non-Af 183 BUN/Creatinine Ratio 26.9 H Glucose 185 H Calcium 7.3 L Magnesium 1.4 L TSH Vancomycin Trough Urine Opiates Screen Urine Methadone Screen Ur Barbiturates Screen Ur Phencyclidine Scrn Ur Amphetamines Screen U Methamphetamin-MDMA U Benzodiazepines Scrn Urine Cocaine Screen U Cannabinoids Screen Ur Drug Screen Comment POC Glucose 225 H 10/13/17 10/13/17 10/13/17 10:15 11:10 11:49 WBC RBC Hgb Hct MCV MCH MCHC RDW RDW Differential Plt Count MPV PT INR APTT 110.6 H* 83.6 H Sodium Potassium Chloride Carbon Dioxide Anion Gap BUN Creatinine Estim Creat Clear Calc Est GFR (MDRD) Af Amer Est GFR (MDRD) Non-Af BUN/Creatinine Ratio Glucose Calcium Magnesium TSH Vancomycin Trough Urine Opiates Screen Urine Methadone Screen Ur Barbiturates Screen Ur Phencyclidine Scrn Ur Amphetamines Screen U Methamphetamin-MDMA U Benzodiazepines Scrn Urine Cocaine Screen U Cannabinoids Screen Ur Drug Screen Comment POC Glucose 328 H 10/13/17 10/13/17 10/13/17 16:15 17:20 21:29 WBC RBC Hgb Hct MCV MCH MCHC RDW RDW Differential Plt Count MPV PT INR APTT 126.8 H* Sodium Potassium Chloride Carbon Dioxide Anion Gap BUN Creatinine Estim Creat Clear Calc Est GFR (MDRD) Af Amer Est GFR (MDRD) Non-Af BUN/Creatinine Ratio Glucose Calcium Magnesium TSH Vancomycin Trough Urine Opiates Screen Urine Methadone Screen Ur Barbiturates Screen Ur Phencyclidine Scrn Ur Amphetamines Screen U Methamphetamin-MDMA U Benzodiazepines Scrn Urine Cocaine Screen U Cannabinoids Screen Ur Drug Screen Comment POC Glucose 228 H 245 H 10/13/17 10/14/17 10/14/17 22:40 04:50 04:50 WBC 5.7 RBC 3.59 L Hgb 10.6 L Hct 32.0 L MCV 89.1 MCH 29.5 MCHC 33.1 RDW 14.3 RDW Differential 45.6 H Plt Count 265 MPV 10.6 PT 18.6 H INR 1.6 APTT 87.0 H Sodium Potassium Chloride Carbon Dioxide Anion Gap BUN Creatinine Estim Creat Clear Calc Est GFR (MDRD) Af Amer Est GFR (MDRD) Non-Af BUN/Creatinine Ratio Glucose Calcium Magnesium TSH Vancomycin Trough Urine Opiates Screen Urine Methadone Screen Ur Barbiturates Screen Ur Phencyclidine Scrn Ur Amphetamines Screen U Methamphetamin-MDMA U Benzodiazepines Scrn Urine Cocaine Screen U Cannabinoids Screen Ur Drug Screen Comment POC Glucose 10/14/17 10/14/17 10/14/17 04:50 04:50 06:47 WBC RBC Hgb Hct MCV MCH MCHC RDW RDW Differential Plt Count MPV PT INR APTT 68.9 H Sodium 136 Potassium 4.2 Chloride 103 Carbon Dioxide 26.0 Anion Gap 7 BUN 9 Creatinine 0.49 L Estim Creat Clear Calc 40.07 Est GFR (MDRD) Af Amer 160 Est GFR (MDRD) Non-Af 132 BUN/Creatinine Ratio 18.3 Glucose 247 H Calcium 8.8 Magnesium TSH Vancomycin Trough Urine Opiates Screen Urine Methadone Screen Ur Barbiturates Screen Ur Phencyclidine Scrn Ur Amphetamines Screen U Methamphetamin-MDMA U Benzodiazepines Scrn Urine Cocaine Screen U Cannabinoids Screen Ur Drug Screen Comment POC Glucose 237 H Microbiology 10/12/17 06:50 Mucosa - Nose Respiratory Panel (PCR) - Final Clinical Impression(s) from Imaging Studies Chest X-Ray 10/11/17 20:10 IMPRESSION: There are no acute findings. Electronically Signed: Dequan Carrillo MD at 20:38 EST , Service support , ADDENDUM: 10/11/172045 IMPRESSION: There are no acute findings. Electronically Signed: Dequan Carrillo MD at 20:39 EST , Service support , Brain CT 10/11/17 20:55 IMPRESSION: Chronic involutional changes of the brain. There are no acute findings. Electronically Signed: Dequan Carrillo MD at 21:40 EST , Service support , Chest X-Ray 10/12/17 06:36 IMPRESSION: Stable examination. Electronically Signed: Abelino Davenport MD at 8:18 EST Tel [phone], Service support , Assessment/Plan Active and Suspected Problems Bacteremia (Acute) Atrial fibrillation (Acute) Bioprosthetic mitral valve replacement, current hospitalization (Acute) RECOMMENDATIONS: 1. Amiodarone will be discontinued today. 2. Maintain serum potassium level greater than 4 and magnesium level greater than 2. 3. Continue Coumadin and heparin drip. Check daily INR. Goal INR should be close to 3. 4. Await repeat blood culture results. There are plans for transesophageal echocardiogram today. 5. Continue antibiotics per ID recommendations 6. Encourage incentive spirometer use and mobilize patient as tolerated IMPRESSIONS: 1. Sepsis 2/2 group C strep bacteremia The patient is currently being maintained on appropriate antibiotics, per ID recommendations. She has been adequately volume resuscitated at this time. Supplemental IV fluids can be continued to offset insensible losses, given ongoing fevers. Surface echocardiogram was completed yesterday and was largely unremarkable. However, given the patient's current clinical state and persistent fevers, a transesophageal echocardiogram will be completed today. 2. Transient infectious encephalopathy/delirium Likely secondary to #1. Resolved at this time. 3. New Onset Atrial Fibrillation Resolved. The patient did respond to the use of amiodarone and subsequently converted back to normal sinus rhythm. Amiodarone can be discontinued today. The patient's Coumadin will be continued along with the heparin drip until her INR is 2.5-3.5. Maintain serum potassium level greater than 4 and magnesium level greater than 2. 4. History of Recurrent Mechanical Falls PT/OT to work with patient. Case management to assist with disposition needs. 5. History of mechanical mitral valve replacement/hypertension/hyperlipidemia/ diabetes Complicates care, management, recovery and prognosis. Continue sliding scale insulin coverage. This note was generated with [employer] dictation software. It may contain incorrect words, spelling, and punctuation that were not noted in checking the note before signing. Code Visit Inpatient E&M: 44897 Subs Hosp L2
--- NOTE | 2017-10-14 07:20 | PCM.PN.HOSP ---
Patient Problems: Active and Suspected Problems Bacteremia (Acute) Atrial fibrillation (Acute) Bioprosthetic mitral valve replacement, current hospitalization (Acute) Subjective: Scheduled to undergo LAURA today. Her T-max over the past 24 hours 100.9. Objective: GENERAL: cooperative HEENT: Clear conjunctiva, NECK; supple, normal thyroid, CHEST: Clear to auscultation bilaterally, HEART: Regular S1-S2, tachycardic, systolic click ABDOMEN: soft, non-tender, normoactive bowel sounds, RECTAL: deferred EXTREMITIES: No edema, no clubbing, no cyanosis. 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 SKIN: facial bruising Vitals/I&O's: Vital Signs Temp Pulse Resp BP Pulse Ox 98.0 F 70 27 H 102/64 94 10/14/17 06:00 10/14/17 06:00 10/14/17 06:00 10/14/17 06:00 10/14/17 06:00 Oxygen Flow Rate 1 Oxygen Delivery Method Room Air Weight: 61.2 kg Body Mass Index (BMI) 24.3 Intake and Output for Last 24 Hours 10/12/17 10/13/17 10/14/17 23:59 23:59 23:59 Intake Total 6747 / 6747 4271.2 / 4271.2 684.2 / 684.2 Output Total 4650 / 4650 4750 / 4750 800 / 800 Balance 2097 / 2097 -478.8 / -478.8 -115.8 / -115.8 Microbiology Past 72 Hours 10/12/17 06:50 Mucosa - Nose Respiratory Panel (PCR) - Final Laboratory Results 10/13/17 07:48: POC Glucose 225 H 10/13/17 10:15: APTT 110.6 H* 10/13/17 11:10: APTT 83.6 H 10/13/17 11:49: POC Glucose 328 H 10/13/17 16:15: APTT 126.8 H* 10/13/17 17:20: POC Glucose 228 H 10/13/17 21:29: POC Glucose 245 H 10/13/17 22:40: APTT 87.0 H 10/14/17 04:50: WBC 5.7, RBC 3.59 L, Hgb 10.6 L, Hct 32.0 L, MCV 89.1, MCH 29.5, MCHC 33.1, RDW 14.3, RDW Differential 45.6 H, Plt Count 265, MPV 10.6 10/14/17 04:50: PT 18.6 H, INR 1.6 10/14/17 04:50: Sodium 136, Potassium 4.2, Chloride 103, Carbon Dioxide 26.0, Anion Gap 7, BUN 9, Creatinine 0.49 L, Estim Creat Clear Calc 40.07, Est GFR (MDRD) Af Amer 160, Est GFR (MDRD) Non-Af 132, BUN/Creatinine Ratio 18.3, Glucose 247 H, Calcium 8.8 10/14/17 04:50: APTT 68.9 H 10/14/17 06:47: POC Glucose 237 H Current Medications Acetaminophen (Tylenol) 650 mg PO Q6H PRN PRN PRN Reason: FEVER Last Admin: 10/13/17 16:03 Dose: 650 mg Atorvastatin Calcium (Lipitor) 20 mg PO QHS EFREN Last Admin: 10/13/17 21:30 Dose: 20 mg Chlorhexidine Gluconate () 1 each TOPICAL DAILY EFREN Last Admin: 10/13/17 04:18 Dose: 1 each Dextrose (D50w Syringe) 0 gm IV X1 PRN; Protocol PRN Reason: Hypoglycemia Glucagon () 1 mg IM .X1 PRN PRN Reason: Hypoglycemia Heparin Sodium (Porcine) () 0 units IV UD PRN PRN Reason: Protocol Sodium Chloride () 250 mls @ 15 mls/hr IV .[id number] PRN PRN Reason: SALINE FLUSH Last Admin: 10/12/17 16:06 Dose: 15 mls/hr Heparin Sodium/Dextrose () 25,000 units in 250 mls @ 8 mls/hr IV .[id number] EFREN; As Directed PRN Reason: Protocol Last Admin: 10/13/17 10:26 Dose: 8 mls/hr Lactated Ringer's () 1,000 mls @ 100 mls/hr IV .Q10H EFREN Last Admin: 10/14/17 05:49 Dose: Not Given Ceftriaxone Sodium 2 gm/ (Sodium Chloride) 50 mls @ 100 mls/hr IV Q24 EFREN Last Admin: 10/13/17 10:35 Dose: 100 mls/hr Amiodarone HCl/Dextrose (Nexterone 360 Mg/200 Ml Bag) 360 mg in 200 mls @ 16.667 mls/hr IV .Q12H EFREN PRN Reason: 0.5 MG/MIN Stop: 10/14/17 07:24 Last Admin: 10/14/17 01:31 Dose: 16.667 mls/hr Insulin Aspart (Novolog Flexpen (Bkc)) 0 units SC ACHS EFREN PRN Reason: Protocol Last Admin: 10/13/17 21:31 Dose: 2 units Magnesium Hydroxide (Milk Of Magnesia) 30 ml PO DAILY PRN PRN PRN Reason: Constipation Nutritional Formula (Lactose Free) (Glucerna Shake) 120 ml PO 4X/DAY [facility] Last Admin: 10/13/17 21:30 Dose: 120 ml Potassium Chloride (K-Dur) 20 meq PO BIDCM [facility] Last Admin: 10/13/17 17:41 Dose: 20 meq Sodium Chloride () 5 - 30 ml IV UD PRN PRN Reason: SALINE FLUSH Last Admin: 10/13/17 17:41 Dose: 30 ml Warfarin Sodium (Coumadin (Pbkc)) 4 mg PO TuThSa@1700 EFREN Warfarin Sodium (Coumadin (Pbkc)) 6 mg PO SuMoWeFr@1700 [facility] Last Admin: 10/13/17 17:40 Dose: 6 mg Assessment/Plan Active and Suspected Problems Bacteremia (Acute) Atrial fibrillation (Acute) Bioprosthetic mitral valve replacement, current hospitalization (Acute) Patient is a 67-year-old lady with history of mechanical mitral valve admitted with acute febrile illness. Patient admitted to the intensive care unit. Blood cultures obtained coming back positive for gram-positive cocci in chains. Patient on broad-spectrum antibiotic therapy with vancomycin and cefepime 1. Strep pneumococcal bacteremia: Patient on broad-spectrum antibiotic therapy with vancomycin and cefepime so still not clear seen by infectious disease notes and recommendations reviewed. Patient transthoracic echo was negative for endocarditis 2. History of mitral valve replacement with mechanical valve on systemic anticoagulation with Coumadin INR is therapeutic 3. Recurrent falls with left facial contusion plan is to obtain PT and OT eval once patient medical condition is stabilized 4. Dyslipidemia-patient is on statin therapy, continued at home dose 5. Hypertension patient blood pressure currently on the low side 6. Paroxysmal A. fib with RVR patient was started on amiodarone drip on continuous telemetry for now with consultation placed to cardiology 7. DVT prophylaxis on Coumadin no need for additional measures Code Visit Inpatient E&M: 77016 Subs Hosp L3
--- NOTE | 2017-10-14 08:00 | ECHOTEE_ITS ---
Reason For Study: Murmur Medication LAURA probe passed without difficulty. No complications were noted. [id number] gargled and swallowed. Cetacaine Topical [place] given X2 orally. Versed 2 mg given slow IVP. Fentanyl 25 mcg given slow IVP. Performed a rapid injection of agitated mix of 9 cc saline and 1cc air to assess for atrial septal defect. Left Ventricle Normal size and thickness. The estimated ejection fraction is 65 %. No regional wall motion abnormalities noted. Right Ventricle Normal size and thickness. Normal systolic function. Atria Normal atrial septum. Normal left atrium. No thrombus is detected in the left atrial appendage. Normal right atrium. Mitral Valve Trivial mitral valve insufficiency. Normal prosthetic mitral valve. Stable appearing mechanical mitral valve apparatus. Tricuspid Valve Normal tricuspid valve. Mild (1+) tricuspid valve insufficiency. Right ventricular systolic pressure estimated to be 21 mmHg. Aortic Valve Trisinus/trileaflet aortic valve. Mild diffuse aortic valve thickening. Trivial aortic valve insufficiency. Pulmonic Valve Normal pulmonic valve. Vessels Normal ascending aorta. Normal arch. The pulmonary artery is normal size. Pulmonary venous flow normal. Pericardium No pericardial effusion. Interpretation Summary There is no evidence of a mass or vegetation. This does not rule out endocarditis. The estimated ejection fraction is 65 %. No thrombus is detected in the left atrial appendage. Normal prosthetic mitral valve. No evidence of vegetations noted. Stable appearing mechanical mitral valve apparatus. Mild (1+) tricuspid valve insufficiency. Right ventricular systolic pressure estimated to be 21 mmHg. Trivial aortic valve insufficiency. Ordering Physician: Donnie Luevano D.O. Referring Physician: Gwen David Performed By: Venecia Hubbard RDCS
--- NOTE | 2017-10-14 08:45 | CASEMGMT ---
Linda from [facility] called this SW back, SW informed her of the concerns that the daughter had expressed. SW will keep Linda informed of the discharge plan. PATRICIA will continue to follow. DAVIDSON Schumacher, MACHINE BANDER AND CELLOPHANER HELPER
[2017-10-14] MEDS: 0.9% NaCl Peripheral Flush Adult/Peds IV ×4 (09:03→17:29)
[2017-10-14 09:11] LABS: Bedside Glucose 251 mg/dL (70-110)
[2017-10-14] MEDS: Lactated Ringers 1,000 ML 100 ML IV ×2 (10:00→19:52)
[2017-10-14] MEDS: 0.9% NaCl IVPB Med Flush (250 mL) 15 ML IV (10:01)
--- NOTE | 2017-10-14 11:14 | PCM.PN.CARD ---
Subjectve: Patient feeling much better today, maintained sinus rhythm since yesterday. Amiodarone drip off. Objective: Vital Signs Temp Pulse Resp BP Pulse Ox 98.1 F 73 19 H 95/67 99 10/14/17 10:00 10/14/17 10:00 10/14/17 10:00 10/14/17 10:00 10/14/17 10:00 Oxygen Flow Rate 1 Oxygen Delivery Method Room Air Weight: 134 lb 14.766 oz Body Mass Index (BMI) 24.3 Intake and Output for Last 24 Hours 10/12/17 10/13/17 10/14/17 23:59 23:59 23:59 Intake Total 6747 / 6747 4271.2 / 4271.2 684.2 / 684.2 Output Total 4650 / 4650 4750 / 4750 800 / 800 Balance 2097 / 2097 -478.8 / -478.8 -115.8 / -115.8 General: Awake, Alert, Oriented x 3 HEENT: PERRL, EOMI, Sclera Non Icteric Neck: Supple, Good ROM, No Lymph Node Enlargement Lungs: Clear to auscultation Cardiovascular: Regular Rhythm, Normal S1, Normal S2, No Rubs, No Gallops, [place] Prosthetic S1, [place] Prosthetic S2 Vascular: No Carotid Bruits, Normal Femoral Pulses, Normal Radial Pulses, Normal Dorsalis Pedal Pulse, Normal Posterior Tibial Pulses Abdomen: Bowel Sounds Present, Soft, Non Tender, No HSM, No Organomegaly Extremities: No Cyanosis, No Clubbing, No edema Neurological: No Focal Motor or Sensory Deficit 10/13/17 11:10: APTT 83.6 H 10/13/17 16:15: APTT 126.8 H* 10/13/17 22:40: APTT 87.0 H 10/14/17 04:50: WBC 5.7, RBC 3.59 L, Hgb 10.6 L, Hct 32.0 L, MCV 89.1, MCH 29.5, MCHC 33.1, RDW 14.3, RDW Differential 45.6 H, Plt Count 265, MPV 10.6 10/14/17 04:50: PT 18.6 H, INR 1.6 10/14/17 04:50: Sodium 136, Potassium 4.2, Chloride 103, Carbon Dioxide 26.0, Anion Gap 7, BUN 9, Creatinine 0.49 L, Est GFR (MDRD) Af Amer 160, Est GFR (MDRD) Non-Af 132, BUN/Creatinine Ratio 18.3, Glucose 247 H, Calcium 8.8 10/14/17 04:50: APTT 68.9 H Rhythm: EKG: ECHO: LAURA performed at the bedside today demonstrates no evidence of endocarditis on her prosthetic mitral valve, mild aortic valve thickening, no other vegetations noted on aortic, tricuspid, or pulmonary valves. Bubble study negative. Stress Test: Cardiac Cath: PCI: CT Surgery: Holter monitor: EPS: PPM: CXR: Chest CT Scan: Assessment/Plan 1. Mitral valve replacement: The patient has a prosthetic mitral valve, and has no outward signs of endocarditis that I can tell. She does have 2 blood cultures that are positive for strep LAURA done at the bedside today demonstrates no evidence of vegetations on her prosthetic mitral valve or any other valves. LV function appears to be intact. Bubble study negative. She is responded very well to IV antibiotic therapy relatively quickly, and her atrial fibrillation has converted back to sinus rhythm. Vegetations on her prosthetic or [place] valves, I do not believe she requires long-term IV antibiotic therapy at this time. Transition to p.o. antibiotics as indicated. Given her prosthetic mitral valve she requires an INR between 2.5 and 3.5, and would recommend IV heparin drip until her INR has improved above 2.0. INR today is less than 2.0. Continue IV heparin drip until INR is above 2.5 on 2 consecutive days. 2. Atrial fibrillation: Patient is converted back from atrial flutter relation to normal sinus rhythm. She has been in sinus rhythm for greater than 24 hours while off IV amiodarone. Her atrial fibrillation was most likely result of her acute inflammatory event. Hold off on p.o. amiodarone at this time. Would recommend 24 hours of IV amiodarone. Recommend keeping her potassium above 4.0, and magnesium of 2.0 to facilitate normal sinus rhythm. 3. Discussed with Dr. Luevano. Thank you very much for the opportunity to put dissipate in the cardiac care of your patient. We will sign off. Code Visit Inpatient E&M: 47188 Subs Hosp L2
--- NOTE | 2017-10-14 11:17 | PN.CARD_ITS ---
Subjectve: Patient feeling much better today, maintained sinus rhythm since yesterday. Amiodarone drip off. Objective: Vital Signs Temp Pulse Resp BP Pulse Ox 98.1 F 73 19 H 95/67 99 10/14/17 10:00 10/14/17 10:00 10/14/17 10:00 10/14/17 10:00 10/14/17 10:00 Oxygen Flow Rate 1 Oxygen Delivery Method Room Air Weight: 134 lb 14.766 oz Body Mass Index (BMI) 24.3 Intake and Output for Last 24 Hours 10/12/17 10/13/17 10/14/17 23:59 23:59 23:59 Intake Total 6747 / 6747 4271.2 / 4271.2 684.2 / 684.2 Output Total 4650 / 4650 4750 / 4750 800 / 800 Balance 2097 / 2097 -478.8 / -478.8 -115.8 / -115.8 General: Awake, Alert, Oriented x 3 HEENT: PERRL, EOMI, Sclera Non Icteric Neck: Supple, Good ROM, No Lymph Node Enlargement Lungs: Clear to auscultation Cardiovascular: Regular Rhythm, Normal S1, Normal S2, No Rubs, No Gallops, [place] Prosthetic S1, [place] Prosthetic S2 Vascular: No Carotid Bruits, Normal Femoral Pulses, Normal Radial Pulses, Normal Dorsalis Pedal Pulse, Normal Posterior Tibial Pulses Abdomen: Bowel Sounds Present, Soft, Non Tender, No HSM, No Organomegaly Extremities: No Cyanosis, No Clubbing, No edema Neurological: No Focal Motor or Sensory Deficit 10/13/17 11:10: APTT 83.6 H 10/13/17 16:15: APTT 126.8 H* 10/13/17 22:40: APTT 87.0 H 10/14/17 04:50: WBC 5.7, RBC 3.59 L, Hgb 10.6 L, Hct 32.0 L, MCV 89.1, MCH 29.5 , MCHC 33.1, RDW 14.3, RDW Differential 45.6 H, Plt Count 265, MPV 10.6 10/14/17 04:50: PT 18.6 H, INR 1.6 10/14/17 04:50: Sodium 136, Potassium 4.2, Chloride 103, Carbon Dioxide 26.0, Anion Gap 7, BUN 9, Creatinine 0.49 L, Est GFR (MDRD) Af Amer 160, Est GFR (MDRD ) Non-Af 132, BUN/Creatinine Ratio 18.3, Glucose 247 H, Calcium 8.8 10/14/17 04:50: APTT 68.9 H Rhythm: EKG: ECHO: LAURA performed at the bedside today demonstrates no evidence of endocarditis on her prosthetic mitral valve, mild aortic valve thickening, no other vegetations noted on aortic, tricuspid, or pulmonary valves. Bubble study negative. Stress Test: Cardiac Cath: PCI: CT Surgery: Holter monitor: EPS: PPM: CXR: Chest CT Scan: Assessment/Plan 1. Mitral valve replacement: The patient has a prosthetic mitral valve, and has no outward signs of endocarditis that I can tell. She does have 2 blood cultures that are positive for strep LAURA done at the bedside today demonstrates no evidence of vegetations on her prosthetic mitral valve or any other valves. LV function appears to be intact. Bubble study negative. She is responded very well to IV antibiotic therapy relatively quickly, and her atrial fibrillation has converted back to sinus rhythm. Vegetations on her prosthetic or [place] valves, I do not believe she requires long-term IV antibiotic therapy at this time. Transition to p.o. antibiotics as indicated. Given her prosthetic mitral valve she requires an INR between 2.5 and 3.5, and would recommend IV heparin drip until her INR has improved above 2.0. INR today is less than 2.0. Continue IV heparin drip until INR is above 2.5 on 2 consecutive days. 2. Atrial fibrillation: Patient is converted back from atrial flutter relation to normal sinus rhythm. She has been in sinus rhythm for greater than 24 hours while off IV amiodarone. Her atrial fibrillation was most likely result of her acute inflammatory event. Hold off on p.o. amiodarone at this time. Would recommend 24 hours of IV amiodarone. Recommend keeping her potassium above 4.0, and magnesium of 2.0 to facilitate normal sinus rhythm. 3. Discussed with Dr. Luevano. Thank you very much for the opportunity to put dissipate in the cardiac care of your patient. We will sign off. Code Visit Inpatient E&M: [id number] Subs Hosp L2
[2017-10-14 11:37] LABS: Partial Thromboplast Time 52.5 Seconds (24.1-36.2)
--- NOTE | 2017-10-14 11:39 | PCM.PN.ID ---
Patient Problems: Active and Suspected Problems Bacteremia (Acute) Atrial fibrillation (Acute) Bioprosthetic mitral valve replacement, current hospitalization (Acute) Subjective: Feeling better, LAURA this AM, no fever, no n/v/d. - Physical Exam General: Alert, Cooperative, No apparent distress Lungs: Clear to auscultation, Normal air movement Cardiovascular: Regular rate, Regular Rhythm, Murmur Abdomen: Soft, Non Tender, Non-Distended Skin: No rashes Vital Signs Temp Pulse Resp BP Pulse Ox 98.1 F 73 19 H 95/67 99 10/14/17 10:00 10/14/17 10:00 10/14/17 10:00 10/14/17 10:00 10/14/17 10:00 Oxygen Flow Rate 1 Oxygen Delivery Method Room Air Weight: 61.2 kg Body Mass Index (BMI) 24.3 Intake and Output for Last 24 Hours 10/12/17 10/13/17 10/14/17 23:59 23:59 23:59 Intake Total 6747 / 6747 4271.2 / 4271.2 684.2 / 684.2 Output Total 4650 / 4650 4750 / 4750 800 / 800 Balance 2097 / 2097 -478.8 / -478.8 -115.8 / -115.8 Microbiology Past 72 Hours 10/12/17 06:50 Respiratory Panel (PCR) - Final Mucosa - Nose Laboratory Tests Past 24 Hrs 10/13/17 10/13/17 10/14/17 16:15 22:40 04:50 WBC 5.7 RBC 3.59 L Hgb 10.6 L Hct 32.0 L MCV 89.1 MCH 29.5 MCHC 33.1 RDW 14.3 RDW Differential 45.6 H Plt Count 265 MPV 10.6 PT INR APTT 126.8 H* 87.0 H Sodium Potassium Chloride Carbon Dioxide Anion Gap BUN Creatinine Estim Creat Clear Calc Est GFR (MDRD) Af Amer Est GFR (MDRD) Non-Af BUN/Creatinine Ratio Glucose Calcium 10/14/17 10/14/17 10/14/17 04:50 04:50 04:50 WBC RBC Hgb Hct MCV MCH MCHC RDW RDW Differential Plt Count MPV PT 18.6 H INR 1.6 APTT 68.9 H Sodium 136 Potassium 4.2 Chloride 103 Carbon Dioxide 26.0 Anion Gap 7 BUN 9 Creatinine 0.49 L Estim Creat Clear Calc 40.07 Est GFR (MDRD) Af Amer 160 Est GFR (MDRD) Non-Af 132 BUN/Creatinine Ratio 18.3 Glucose 247 H Calcium 8.8 10/14/17 11:15 WBC RBC Hgb Hct MCV MCH MCHC RDW RDW Differential Plt Count MPV PT INR APTT 52.5 H Sodium Potassium Chloride Carbon Dioxide Anion Gap BUN Creatinine Estim Creat Clear Calc Est GFR (MDRD) Af Amer Est GFR (MDRD) Non-Af BUN/Creatinine Ratio Glucose Calcium POC Glucose 10/14/17 10/14/17 10/13/17 09:01 06:47 21:29 POC Glucose 251 H 237 H 245 H 10/13/17 10/13/17 17:20 11:49 POC Glucose 228 H 328 H Route of nutrition/ use of supplements: [] Nutritional Intake: [] IV Site: [] Christiansen Catheter: [] - Assessment/Plan Antibiotics: [] Assessment/Plan: [] Group C strep bacteremia with h/o mech MVR - given recent abd pain, possible GI source. No dental issues. Lungs and cxr are clear. Fever and tachycardia on presentation. Hypotension improved. Murmur present, but no other sign of endocarditis on exam. LAURA with no veg seen per cardiology. Plan will be for midline placement and d/c home on iv ceftriaxone for total 2 weeks, stop date 10/25/17. Weekly bmp, cbc while on iv abx, fax to [phone]. will follow.
[2017-10-14] MEDS: Glucerna Shake 120 ML LIQUID PO ×3 (12:00→21:41)
[2017-10-14 12:06] LABS: Bedside Glucose 209 mg/dL (70-110)
--- NOTE | 2017-10-14 15:57 | CASEMGMT ---
Addendum entered by Myrna Chatterjee 10/14/17 16:34: SW received call back from Fidelina w/[facility], they have pt on the schedule for Wednesday. SW explained someone will call once pt is discharged to let them know for certain pt is going home. SW will continue to follow. DAVIDSON Schumacher, VOLUNTEER SERVICES DIRECTOR Original Note: SW spoke w/pt at the bedside, in regard to discharge plan again. SW reviewed PT w/pt, reiterated that she walked 10-15 feet. SW inquired if pt felt she can manage at home, or if rehab in a [facility] facility may be warranted. Pt states she has a walker and wheelchair at home, and can manage at home. Pt states she has only been up twice since here in the hospital. Pt also states she is not dizzy at this time. SW expressed concern about pt managing at home. Pt states she thinks she falls at home due to vertigo, and it comes on suddenly. Pt states she has medicine to take for this at home, but again states has not been dizzy today. SW offered pt a list of SNF's that take her insurance in the event something changes and she cannot go home, pt declined to take list of SNF's. SW asked pt about home health, pt is agreeable for a home health referral. SW explained will make a referral to [facility] as she has [facility]. Pt is agreeable to this, pt states to make sure they are okay w/dogs however, pt states she has a boxer/mastiff mix named Aguilar who is 4 or 5 and still thinks he's a puppy. She states he is very big and people are scared of him, but he is sweet, still tries to sit on her lap. SW will let the home health agency know. SW called [facility], spoke w/Fidelina, she anticipates they will be able to take pt and start care on the weekend. SW faxed referral information, and will follow up tomorrow w/[facility] to confirm they can take pt. SW did let Fidelina know about pt's dog and the daughter's concerns about the cleanliness of the home. PATRICIA/HAKEEM will continue to follow for discharge home w/home health. DAVIDSON Schumacher, VOLUNTEER SERVICES DIRECTOR
[2017-10-14 17:31] LABS: Bedside Glucose 239 mg/dL (70-110)
[2017-10-14 18:14] LABS: Partial Thromboplast Time 49.8 Seconds (24.1-36.2)
[2017-10-14] MEDS: Atorvastatin Calcium 20 MG Tablet PO (21:42)
[2017-10-15] VITALS (12 sets, daily range): BP systolic 126–138; BP diastolic 70–76; PULSE 73–87; RESP 16–18; TEMP 36–36.9; O2SAT 95–97
[2017-10-15 00:56] LABS: Bedside Glucose 172 mg/dL (70-110)
[2017-10-15 01:38] LABS: Partial Thromboplast Time 65.9 Seconds (24.1-36.2)
[2017-10-15] MEDS: Lactated Ringers 1,000 ML 100 ML IV ×2 (05:42→17:34)
[2017-10-15 07:00] LABS: Bedside Glucose 293 mg/dL (70-110)
[2017-10-15 07:01] LABS: Hemoglobin 10.6 g/dl (12.0-15.0); Mean Corp Hgb Conc 33.1 g/gl (32-36); Mean Corpuscular Hgb 29.5 pg (27.0-32.0); Mean Corpuscular Volume 89.1 fL (81-99); Mean Platelet Vol. 10.7 fl (6.2-12.0); Platelet Count 306 K/mm3 (150-450); RBC Distribution Width CV 13.9 % (11.6-14.6); RBC Distribution Width SD 44.3 fl (35.1-43.9); Red Blood Count 3.59 M/mm3 (4.2-5.4); White Blood Count 5.4 K/mm3 (4.4-11.0)
[2017-10-15 07:06] LABS: Anion Gap 7 (5-15); BUN 15 mg/dL (7-18); BUN/Creat Ratio 34.5 RATIO (10-20); Calcium,Total 9.2 mg/dL (8.5-10.1); Chloride 101 mmol/L (98-107); Creatinine, Serum 0.44 mg/dL (0.55-1.02); EST Glomerular Filtration Rate 152 mL/min (>60); Est Glom Filt Rate - Afr Amer 184 mL/min (>60); Estimated Creatinine Clearance 40.07 ml/min; Glucose 269 mg/dL (74-106); Potassium 4.2 mmol/L (3.5-5.1); Sodium Level 137 mmol/L (136-145)
[2017-10-15 07:11] LABS: Scan Indicated on CBC? Y/N NO
[2017-10-15 07:17] LABS: International Normalized Ratio 1.5; Prothrombin Time (Protime)PT. 18.1 SECONDS (11.7-14.9)
[2017-10-15] MEDS: Glucerna Shake 120 ML LIQUID PO ×4 (08:17→21:51)
--- NOTE | 2017-10-15 09:27 | PCM.PN.CARD ---
Subjectve: Patient continues to improve. On IV heparin drip. PTT therapeutic. INR still 1.5. LAURA yesterday is negative for bacterial vegetations as best I can see. Patient feels much better. Telemetry shows normal sinus rhythm. Objective: Vital Signs Temp Pulse Resp BP Pulse Ox 98.3 F 75 16 137/74 H 97 10/15/17 08:12 10/15/17 08:12 10/15/17 08:12 10/15/17 08:12 10/15/17 08:12 Oxygen Flow Rate 1 Oxygen Delivery Method Room Air Weight: 128 lb 8.472 oz Body Mass Index (BMI) 24.3 Intake and Output for Last 24 Hours 10/13/17 10/14/17 10/15/17 23:59 23:59 23:59 Intake Total 4271.2 / 4271.2 3033.8 / 3033.8 953 / 953 Output Total 4750 / 4750 2850 / 2850 525 / 525 Balance -478.8 / -478.8 183.8 / 183.8 428 / 428 General: Awake, Alert, Oriented x 3 HEENT: PERRL, EOMI, Sclera Non Icteric Neck: Supple, Good ROM, No Lymph Node Enlargement Lungs: Clear to auscultation Cardiovascular: Regular Rhythm, Normal S1, Normal S2, No Murmurs, No Rubs, No Gallops, [place] Prosthetic S1, [place] Prosthetic S2 Murmur Murmur: Grade 3/6 Vascular: No Carotid Bruits, Normal Femoral Pulses, Normal Radial Pulses, Normal Dorsalis Pedal Pulse, Normal Posterior Tibial Pulses Abdomen: Bowel Sounds Present, Soft, Non Tender, No HSM, No Organomegaly Extremities: No Cyanosis, No Clubbing, No edema Neurological: No Focal Motor or Sensory Deficit 10/14/17 11:15: APTT 52.5 H 10/14/17 17:50: APTT 49.8 H 10/15/17 00:55: APTT 65.9 H 10/15/17 06:30: WBC 5.4, RBC 3.59 L, Hgb 10.6 L, Hct 32.0 L, MCV 89.1, MCH 29.5, MCHC 33.1, RDW 13.9, RDW Differential 44.3 H, Plt Count 306, MPV 10.7 10/15/17 06:30: Sodium 137, Potassium 4.2, Chloride 101, Carbon Dioxide 29.0, Anion Gap 7, BUN 15, Creatinine 0.44 L, Est GFR (MDRD) Af Amer 184, Est GFR (MDRD) Non-Af 152, BUN/Creatinine Ratio 34.5 H, Glucose 269 H, Calcium 9.2 10/15/17 06:30: PT 18.1 H, INR 1.5, APTT 53.0 H Rhythm: EKG: ECHO: Stress Test: Cardiac Cath: PCI: CT Surgery: Holter monitor: EPS: PPM: CXR: Chest CT Scan: Assessment/Plan 1. Mitral valve replacement: The patient has a prosthetic mitral valve, and has no outward signs of endocarditis that I can tell. She does have 2 blood cultures that are positive for strep LAURA done at the bedside today demonstrates no evidence of vegetations on her prosthetic mitral valve or any other valves. LV function appears to be intact. Bubble study negative. She is responded very well to IV antibiotic therapy relatively quickly, and her atrial fibrillation has converted back to sinus rhythm. Vegetations on her prosthetic or [place] valves, I do not believe she requires long-term IV antibiotic therapy at this time. Transition to p.o. antibiotics as indicated. Given her prosthetic mitral valve she requires an INR between 2.5 and 3.5, and would recommend IV heparin drip until her INR has improved above 2.0. INR today is less than 2.0. Continue IV heparin drip until INR is above 2.5 on 2 consecutive days. ID note reviewed. Patient is expecting a midline catheter for IV ceftriaxone for the next 2 weeks given her positive bacteremia. LAURA negative for bacterial vegetations. She may follow-up with Dr. Gerardo. 2. Atrial fibrillation: Patient is converted back from atrial flutter relation to normal sinus rhythm. She has been in sinus rhythm for greater than 24 hours while off IV amiodarone. Her atrial fibrillation was most likely result of her acute inflammatory event. Hold off on p.o. amiodarone at this time. Would recommend 24 hours of IV amiodarone. Recommend keeping her potassium above 4.0, and magnesium of 2.0 to facilitate normal sinus rhythm. 3. We will sign off. Please call with any questions. Patient may follow-up with Dr. Moodispaw going forward in November 2017. Code Visit Inpatient E&M: [id number] Subs Hosp L2
--- NOTE | 2017-10-15 09:52 | PCM.PN.HOSP ---
Patient Problems: Active and Suspected Problems Bacteremia (Acute) Atrial fibrillation (Acute) Bioprosthetic mitral valve replacement, current hospitalization (Acute) Subjective: She has seen clinical condition continues to improve. She underwent LAURA the day prior which is negative for bacterial endocarditis. Patient to be discharged once her INR is therapeutic to undergo midline placement for 2 weeks antibiotic therapy Objective: GENERAL: cooperative HEENT: Clear conjunctiva, NECK; supple, normal thyroid, CHEST: Clear to auscultation bilaterally, HEART: Regular S1-S2, tachycardic, systolic click ABDOMEN: soft, non-tender, normoactive bowel sounds, RECTAL: deferred EXTREMITIES: No edema, no clubbing, no cyanosis. WATCH ADJUSTER: Awake, no lateralizing signs. SKIN: facial bruising Vitals/I&O's: Vital Signs Temp Pulse Resp BP Pulse Ox 98.3 F 75 16 137/74 H 97 10/15/17 08:12 10/15/17 08:12 10/15/17 08:12 10/15/17 08:12 10/15/17 08:12 Oxygen Flow Rate 1 Oxygen Delivery Method Room Air Weight: 58.3 kg Body Mass Index (BMI) 24.3 Intake and Output for Last 24 Hours 10/13/17 10/14/17 10/15/17 23:59 23:59 23:59 Intake Total 4271.2 / 4271.2 3033.8 / 3033.8 953 / 953 Output Total 4750 / 4750 2850 / 2850 525 / 525 Balance -478.8 / -478.8 183.8 / 183.8 428 / 428 Microbiology Past 72 Hours 10/12/17 11:45 Blood Culture (Wb) - No Site/Description Given Blood Culture - Preliminary No growth in 48 hours. 10/12/17 06:50 Mucosa - Nose Respiratory Panel (PCR) - Final Laboratory Results 10/14/17 11:15: APTT 52.5 H 10/14/17 11:59: POC Glucose 209 H 10/14/17 17:22: POC Glucose 239 H 10/14/17 17:50: APTT 49.8 H 10/14/17 21:40: POC Glucose 172 H 10/15/17 00:55: APTT 65.9 H 10/15/17 06:30: WBC 5.4, RBC 3.59 L, Hgb 10.6 L, Hct 32.0 L, MCV 89.1, MCH 29.5, MCHC 33.1, RDW 13.9, RDW Differential 44.3 H, Plt Count 306, MPV 10.7 10/15/17 06:30: Sodium 137, Potassium 4.2, Chloride 101, Carbon Dioxide 29.0, Anion Gap 7, BUN 15, Creatinine 0.44 L, Estim Creat Clear Calc 40.07, Est GFR (MDRD) Af Amer 184, Est GFR (MDRD) Non-Af 152, BUN/Creatinine Ratio 34.5 H, Glucose 269 H, Calcium 9.2 10/15/17 06:30: PT 18.1 H, INR 1.5, APTT 53.0 H 10/15/17 06:55: POC Glucose 293 H Current Medications Acetaminophen (Tylenol) 650 mg PO Q6H PRN PRN PRN Reason: FEVER Last Admin: 10/13/17 16:03 Dose: 650 mg Atorvastatin Calcium (Lipitor) 20 mg PO QHS EFREN Last Admin: 10/14/17 21:42 Dose: 20 mg Dextrose (D50w Syringe) 0 gm IV X1 PRN; Protocol PRN Reason: Hypoglycemia Glucagon () 1 mg IM .X1 PRN PRN Reason: Hypoglycemia Heparin Sodium (Porcine) (Heparin Na) 0 unit IV UD PRN PRN Reason: Protocol Last Admin: 10/15/17 08:05 Dose: 1,000 u Sodium Chloride () 250 mls @ 15 mls/hr IV .[id number] PRN PRN Reason: SALINE FLUSH Last Admin: 10/14/17 10:01 Dose: 15 mls/hr Heparin Sodium/Dextrose () 25,000 units in 250 mls @ 8 mls/hr IV .[id number] EFREN; As Directed PRN Reason: Protocol Last Admin: 10/14/17 17:29 Dose: Not Given Lactated Ringer's () 1,000 mls @ 100 mls/hr IV .Q10H EFREN Last Admin: 10/15/17 05:42 Dose: 100 mls/hr Ceftriaxone Sodium 2 gm/ (Sodium Chloride) 50 mls @ 100 mls/hr IV Q24 EFREN Last Admin: 10/14/17 10:00 Dose: 100 mls/hr Insulin Aspart (Novolog Flexpen (Bkc)) 0 units SC ACHS [facility] PRN Reason: Protocol Last Admin: 10/15/17 08:15 Dose: 3 units Magnesium Hydroxide (Milk Of Magnesia) 30 ml PO DAILY PRN PRN PRN Reason: Constipation Nutritional Formula (Lactose Free) (Glucerna Shake) 120 ml PO 4X/DAY [facility] Last Admin: 10/15/17 08:17 Dose: 120 ml Potassium Chloride (K-Dur) 20 meq PO BIDCM [facility] Last Admin: 10/15/17 08:15 Dose: 20 meq Sodium Chloride () 5 - 30 ml IV UD PRN PRN Reason: SALINE FLUSH Last Admin: 10/14/17 17:29 Dose: 10 ml Warfarin Sodium (Coumadin (Pbkc)) 4 mg PO [id number] [facility] Last Admin: 10/14/17 17:23 Dose: 4 mg Warfarin Sodium (Coumadin (Pbkc)) 6 mg PO [email or web address]@1700 [facility] Last Admin: 10/13/17 17:40 Dose: 6 mg Assessment/Plan Active and Suspected Problems Bacteremia (Acute) Atrial fibrillation (Acute) Bioprosthetic mitral valve replacement, current hospitalization (Acute) Patient is a 67-year-old lady with history of mechanical mitral valve admitted with acute febrile illness. Patient admitted to the intensive care unit. Blood cultures obtained coming back positive for gram-positive cocci in chains. Patient on broad-spectrum antibiotic therapy with vancomycin and cefepime 1. Strep pneumococcal bacteremia: Patient on broad-spectrum antibiotic therapy with vancomycin and cefepime so still not clear seen by infectious disease notes and recommendations reviewed. Patient transthoracic echo was negative for endocarditis is for patient to be treated with a total of 2. History of mitral valve replacement with mechanical valve on systemic anticoagulation with Coumadin INR is subtherapeutic 3. Recurrent falls with left facial contusion plan is to obtain PT and OT eval once patient medical condition is stabilized 4. Dyslipidemia-patient is on statin therapy, continued at home dose 5. Hypertension patient blood pressure currently on the low side 6. Paroxysmal A. fib with RVR patient was started on amiodarone drip on continuous telemetry for now with consultation placed to cardiology back to sinus rhythm on amiodarone discontinued plan is for patient to be discharged home on systemic anticoagulation with Coumadin once INR is therapeutic 7. DVT prophylaxis on Coumadin no need for additional measures Code Visit Inpatient E&M: 19411 Subs Hosp L2
--- NOTE | 2017-10-15 09:56 | PN_ITS ---
Patient Problems: Active and Suspected Problems Bacteremia (Acute) Atrial fibrillation (Acute) Bioprosthetic mitral valve replacement, current hospitalization (Acute) Subjective: She has seen clinical condition continues to improve. She underwent LAURA the day prior which is negative for bacterial endocarditis. Patient to be discharged once her INR is therapeutic to undergo midline placement for 2 weeks antibiotic therapy Objective: GENERAL: cooperative HEENT: Clear conjunctiva, NECK; supple, normal thyroid, CHEST: Clear to auscultation bilaterally, HEART: Regular S1-S2, tachycardic, systolic click ABDOMEN: soft, non-tender, normoactive bowel sounds, RECTAL: deferred EXTREMITIES: No edema, no clubbing, no cyanosis. HONEYCOMB DECAPPER: Awake, no lateralizing signs. SKIN: facial bruising Vitals/I&O's: Vital Signs Temp Pulse Resp BP Pulse Ox 98.3 F 75 16 137/74 H 97 10/15/17 08:12 10/15/17 08:12 10/15/17 08:12 10/15/17 08:12 10/15/17 08:12 Oxygen Flow Rate 1 Oxygen Delivery Method Room Air Weight: 58.3 kg Body Mass Index (BMI) 24.3 Intake and Output for Last 24 Hours 10/13/17 10/14/17 10/15/17 23:59 23:59 23:59 Intake Total 4271.2 / 4271.2 3033.8 / 3033.8 953 / 953 Output Total 4750 / 4750 2850 / 2850 525 / 525 Balance -478.8 / -478.8 183.8 / 183.8 428 / 428 Microbiology Past 72 Hours 10/12/17 11:45 Blood Culture (Wb) - No Site/Description Given Blood Culture - Preliminary No growth in 48 hours. 10/12/17 06:50 Mucosa - Nose Respiratory Panel (PCR) - Final Laboratory Results 10/14/17 11:15: APTT 52.5 H 10/14/17 11:59: POC Glucose 209 H 10/14/17 17:22: POC Glucose 239 H 10/14/17 17:50: APTT 49.8 H 10/14/17 21:40: POC Glucose 172 H 10/15/17 00:55: APTT 65.9 H 10/15/17 06:30: WBC 5.4, RBC 3.59 L, Hgb 10.6 L, Hct 32.0 L, MCV 89.1, MCH 29.5 , MCHC 33.1, RDW 13.9, RDW Differential 44.3 H, Plt Count 306, MPV 10.7 10/15/17 06:30: Sodium 137, Potassium 4.2, Chloride 101, Carbon Dioxide 29.0, Anion Gap 7, BUN 15, Creatinine 0.44 L, Estim Creat Clear Calc 40.07, Est GFR ( MDRD) Af Amer 184, Est GFR (MDRD) Non-Af 152, BUN/Creatinine Ratio 34.5 H, Glucose 269 H, Calcium 9.2 10/15/17 06:30: PT 18.1 H, INR 1.5, APTT 53.0 H 10/15/17 06:55: POC Glucose 293 H Current Medications Acetaminophen (Tylenol) 650 mg PO Q6H PRN PRN PRN Reason: FEVER Last Admin: 10/13/17 16:03 Dose: 650 mg Atorvastatin Calcium (Lipitor) 20 mg PO QHS EFREN Last Admin: 10/14/17 21:42 Dose: 20 mg Dextrose (D50w Syringe) 0 gm IV X1 PRN; Protocol PRN Reason: Hypoglycemia Glucagon () 1 mg IM .X1 PRN PRN Reason: Hypoglycemia Heparin Sodium (Porcine) (Heparin Na) 0 unit IV UD PRN PRN Reason: Protocol Last Admin: 10/15/17 08:05 Dose: 1,000 u Sodium Chloride () 250 mls @ 15 mls/hr IV .[id number] PRN PRN Reason: SALINE FLUSH Last Admin: 10/14/17 10:01 Dose: 15 mls/hr Heparin Sodium/Dextrose () 25,000 units in 250 mls @ 8 mls/hr IV .[id number] EFREN; As Directed PRN Reason: Protocol Last Admin: 10/14/17 17:29 Dose: Not Given Lactated Ringer's () 1,000 mls @ 100 mls/hr IV .Q10H EFREN Last Admin: 10/15/17 05:42 Dose: 100 mls/hr Ceftriaxone Sodium 2 gm/ (Sodium Chloride) 50 mls @ 100 mls/hr IV Q24 EFREN Last Admin: 10/14/17 10:00 Dose: 100 mls/hr Insulin Aspart (Novolog Flexpen (Bkc)) 0 units SC ACHS [facility] PRN Reason: Protocol Last Admin: 10/15/17 08:15 Dose: 3 units Magnesium Hydroxide (Milk Of Magnesia) 30 ml PO DAILY PRN PRN PRN Reason: Constipation Nutritional Formula (Lactose Free) (Glucerna Shake) 120 ml PO 4X/DAY [facility] Last Admin: 10/15/17 08:17 Dose: 120 ml Potassium Chloride (K-Dur) 20 meq PO BIDCM [facility] Last Admin: 10/15/17 08:15 Dose: 20 meq Sodium Chloride () 5 - 30 ml IV UD PRN PRN Reason: SALINE FLUSH Last Admin: 10/14/17 17:29 Dose: 10 ml Warfarin Sodium (Coumadin (Pbkc)) 4 mg PO TuThSa@1700 [facility] Last Admin: 10/14/17 17:23 Dose: 4 mg Warfarin Sodium (Coumadin (Pbkc)) 6 mg PO [email or web address]@1700 [facility] Last Admin: 10/13/17 17:40 Dose: 6 mg Assessment/Plan Active and Suspected Problems Bacteremia (Acute) Atrial fibrillation (Acute) Bioprosthetic mitral valve replacement, current hospitalization (Acute) Patient is a 67-year-old lady with history of mechanical mitral valve admitted with acute febrile illness. Patient admitted to the intensive care unit. Blood cultures obtained coming back positive for gram-positive cocci in chains. Patient on broad-spectrum antibiotic therapy with vancomycin and cefepime 1. Strep pneumococcal bacteremia: Patient on broad-spectrum antibiotic therapy with vancomycin and cefepime so still not clear seen by infectious disease notes and recommendations reviewed. Patient transthoracic echo was negative for endocarditis is for patient to be treated with a total of 2. History of mitral valve replacement with mechanical valve on systemic anticoagulation with Coumadin INR is subtherapeutic 3. Recurrent falls with left facial contusion plan is to obtain PT and OT eval once patient medical condition is stabilized 4. Dyslipidemia-patient is on statin therapy, continued at home dose 5. Hypertension patient blood pressure currently on the low side 6. Paroxysmal A. fib with RVR patient was started on amiodarone drip on continuous telemetry for now with consultation placed to cardiology back to sinus rhythm on amiodarone discontinued plan is for patient to be discharged home on systemic anticoagulation with Coumadin once INR is therapeutic 7. DVT prophylaxis on Coumadin no need for additional measures Code Visit Inpatient E&M: 03735 Subs Hosp L2
[2017-10-15] MEDS: HEPARIN/D5w 25,000 UNITS 25,000 UNITS/250 ML IV.SOLN. 7 UNITS IV (10:11)
--- NOTE | 2017-10-15 10:40 | CASEMGMT ---
Per Dr. Braeux, pt to be sent home on IV antibx for 2 weeks[address] Script obtained from Dr. Sanchez at this time for Ceftriaxone IV 2gm every 24 hours with a stop date of 10/25/17. This RN CM to room and pt states that her son and a friend are both teachable to do antibx at home. [facility] for RN, PT/OT, and aide. Call to [facility] infusion to set up supplies and per [facility], they are not contracted for [facility] pt's at this time and suggest using [facility]. Call to Shalini at [facility] and referral faxed at this time after she states that they are in-network with pt's insurance. [facility] updated on addition of iv antibx at this time and script and F2F faxed to them at this time. This RN CM will fax midline notes as well after it is placed. [facility] states that they still have pt set up for start of care on Wednesday, unless they hear differently. Green sheet placed on chart at this time as pt should discharge over the weekend. Pt updated on all at this time and voices understanding. Still awaiting call back from [facility] to verify supplies set up for pt. SStaten RN CM
--- NOTE | 2017-10-15 11:22 | PCM.PN.ID ---
Patient Problems: Active and Suspected Problems Bacteremia (Acute) Atrial fibrillation (Acute) Bioprosthetic mitral valve replacement, current hospitalization (Acute) Subjective: Feeling well, no fever, no n/v/d. Out of icu. Tolerated LAURA with no issue. - Physical Exam General: Alert, Cooperative, No apparent distress Lungs: Clear to auscultation, Normal air movement Cardiovascular: Regular rate, Murmur Abdomen: Soft, Non Tender, Non-Distended Skin: No rashes Vital Signs Temp Pulse Resp BP Pulse Ox 98.3 F 87 16 137/74 H 97 10/15/17 08:12 10/15/17 10:53 10/15/17 08:12 10/15/17 08:12 10/15/17 08:12 Oxygen Flow Rate 1 Oxygen Delivery Method Room Air Weight: 58.3 kg Body Mass Index (BMI) 24.3 Intake and Output for Last 24 Hours 10/13/17 10/14/17 10/15/17 23:59 23:59 23:59 Intake Total 4271.2 / 4271.2 3033.8 / 3033.8 953 / 953 Output Total 4750 / 4750 2850 / 2850 525 / 525 Balance -478.8 / -478.8 183.8 / 183.8 428 / 428 Microbiology Past 72 Hours 10/12/17 11:45 Blood Culture - Preliminary Blood Culture (Wb) - No Site/Description Given No growth in 48 hours. 10/12/17 06:50 Respiratory Panel (PCR) - Final Mucosa - Nose Laboratory Tests Past 24 Hrs 10/14/17 10/14/17 10/15/17 11:15 17:50 00:55 WBC RBC Hgb Hct MCV MCH MCHC RDW RDW Differential Plt Count MPV PT INR APTT 52.5 H 49.8 H 65.9 H Sodium Potassium Chloride Carbon Dioxide Anion Gap BUN Creatinine Estim Creat Clear Calc Est GFR (MDRD) Af Amer Est GFR (MDRD) Non-Af BUN/Creatinine Ratio Glucose Calcium 10/15/17 10/15/17 10/15/17 06:30 06:30 06:30 WBC 5.4 RBC 3.59 L Hgb 10.6 L Hct 32.0 L MCV 89.1 MCH 29.5 MCHC 33.1 RDW 13.9 RDW Differential 44.3 H Plt Count 306 MPV 10.7 PT 18.1 H INR 1.5 APTT 53.0 H Sodium 137 Potassium 4.2 Chloride 101 Carbon Dioxide 29.0 Anion Gap 7 BUN 15 Creatinine 0.44 L Estim Creat Clear Calc 40.07 Est GFR (MDRD) Af Amer 184 Est GFR (MDRD) Non-Af 152 BUN/Creatinine Ratio 34.5 H Glucose 269 H Calcium 9.2 POC Glucose 10/15/17 10/14/17 10/14/17 06:55 21:40 17:22 POC Glucose 293 H 172 H 239 H 10/14/17 11:59 POC Glucose 209 H Route of nutrition/ use of supplements: [] Nutritional Intake: [] IV Site: [] Christiansen Catheter: [] - Assessment/Plan Antibiotics: [] Assessment/Plan: [] Group C strep bacteremia with h/o mech MVR - given recent abd pain, possible GI source. No dental issues. Lungs and cxr are clear. Fever and tachycardia on presentation. Hypotension improved. Murmur present, but no other sign of endocarditis on exam. LAURA with no veg seen per cardiology. Ordered midline placement and d/c home on iv ceftriaxone for total 2 weeks, stop date 10/25/17. Weekly bmp, cbc while on iv abx, fax to [phone]. ID follow-up prn. Wrote rx for labs and abx. will follow.
--- NOTE | 2017-10-15 12:04 | PCM.PROGNOTE ---
Patient Problems: Active and Suspected Problems Bacteremia (Acute) Atrial fibrillation (Acute) Bioprosthetic mitral valve replacement, current hospitalization (Acute) Subjective: Patient was seen and examined. She is sitting up in the chair with no complaints. Denies any shortness of breath, fevers, chills, or cough. She remains on a heparin drip. INR remains subtherapeutic at 1.5. Objective: Recent lab and culture data reviewed. Prior echocardiogram from January 2016 revealed normal LV size and function with an ejection fraction of 60%. There was a stable appearing [place] prosthetic mitral valve in place. Right ventricular systolic pressure was estimated to be [address] head revealed chronic involutional changes without acute findings. Initial blood culture dated October 11 was positive for the presence of Group C strep. Repeat blood cultures are currently pending. Respiratory viral panel was negative. Repeat surface echocardiogram dated October 12 revealed normal LV size and function with an ejection fraction of 60%. There was a stable appearing mechanical mitral valve apparatus. Pulmonary artery systolic pressure was estimated to be 37 mmHg. Clinical Impression(s) from Imaging Studies Transesophageal echocardiogram: Interpretation Summary There is no evidence of a mass or vegetation. This does not rule out endocarditis. The estimated ejection fraction is 65 %. No thrombus is detected in the left atrial appendage. Normal prosthetic mitral valve. No evidence of vegetations noted. Stable appearing mechanical mitral valve apparatus. Mild (1+) tricuspid valve insufficiency. Right ventricular systolic pressure estimated to be 21 mmHg. Trivial aortic valve insufficiency. - Physical Exam General: Alert, Oriented x3, Cooperative, No apparent distress, Well developed, Well nourished HEENT: Atraumatic, Normocephalic Oral: Moist Mucosa, No Gingival or Mucosal Lesions/ Ulcerations Neck: Supple, No Nodes, Trachea Midline Lungs: Clear to auscultation, No rhonchi, No wheeze, No rales Cardiovascular: Regular rate, Regular Rhythm, Normal S1, Normal S2, Murmur, No rub noted, No Gallop, - - valve click Abdomen: Bowel Sounds Present, Soft, Non Tender, Non-Distended Extremities: No clubbing, No cyanosis, No edema Skin: No rashes, No breakdown, - - ecchymotic UEs Musculoskeletal: No Tenderness to Palpation of Joints or Extremities Lymphatic: No Cervical, Supraclavicular, or Inguinal Adenopathy Neurological: Neuro grossly intact Psych/Mental Status: Alert and oriented to time, place, person, mood and affect Vital Signs Temp Pulse Resp BP Pulse Ox 98.3 F 87 16 137/74 H 97 10/15/17 08:12 10/15/17 10:53 10/15/17 08:12 10/15/17 08:12 10/15/17 08:12 Oxygen Flow Rate 1 Oxygen Delivery Method Room Air Weight: 128 lb 8.472 oz Body Mass Index (BMI) 24.3 Intake and Output for Last 24 Hours 10/13/17 10/14/17 10/15/17 23:59 23:59 23:59 Intake Total 4271.2 / 4271.2 3033.8 / 3033.8 953 / 953 Output Total 4750 / 4750 2850 / 2850 525 / 525 Balance -478.8 / -478.8 183.8 / 183.8 428 / 428 Microbiology Past 72 Hours 10/12/17 11:45 Blood Culture - Preliminary Blood Culture (Wb) - No Site/Description Given No growth in 48 hours. 10/12/17 06:50 Respiratory Panel (PCR) - Final Mucosa - Nose Laboratory Tests Past 24 Hrs 10/14/17 10/15/17 10/15/17 17:50 00:55 06:30 WBC 5.4 RBC 3.59 L Hgb 10.6 L Hct 32.0 L MCV 89.1 MCH 29.5 MCHC 33.1 RDW 13.9 RDW Differential 44.3 H Plt Count 306 MPV 10.7 PT INR APTT 49.8 H 65.9 H Sodium Potassium Chloride Carbon Dioxide Anion Gap BUN Creatinine Estim Creat Clear Calc Est GFR (MDRD) Af Amer Est GFR (MDRD) Non-Af BUN/Creatinine Ratio Glucose Calcium 10/15/17 10/15/17 06:30 06:30 WBC RBC Hgb Hct MCV MCH MCHC RDW RDW Differential Plt Count MPV PT 18.1 H INR 1.5 APTT 53.0 H Sodium 137 Potassium 4.2 Chloride 101 Carbon Dioxide 29.0 Anion Gap 7 BUN 15 Creatinine 0.44 L Estim Creat Clear Calc 40.07 Est GFR (MDRD) Af Amer 184 Est GFR (MDRD) Non-Af 152 BUN/Creatinine Ratio 34.5 H Glucose 269 H Calcium 9.2 POC Glucose 10/15/17 10/14/17 10/14/17 06:55 21:40 17:22 POC Glucose 293 H 172 H 239 H 10/14/17 11:59 POC Glucose 209 H Assessment/Plan Active and Suspected Problems Bacteremia (Acute) Atrial fibrillation (Acute) Bioprosthetic mitral valve replacement, current hospitalization (Acute) RECOMMENDATIONS: 1. Maintain serum potassium level greater than 4 and magnesium level greater than 2. 2. Continue Coumadin and heparin drip. Check daily INR. Goal INR should be close to 3. Consider transitioning to Lovenox. 3. Midline to be placed today per ID 4. Continue antibiotics per ID recommendations 5. Encourage incentive spirometer use and mobilize patient as tolerated 6. Okay to discharge from pulmonary/mud mill tender standpoint IMPRESSIONS: 1. Sepsis 2/2 group C strep bacteremia The patient is currently on appropriate antibiotics per ID recommendations. She has been adequately volume resuscitated and supplemental IV fluids were discontinued. Surface echocardiogram was largely unremarkable. Transesophageal echocardiogram completed secondary to persistent fevers, it was unremarkable. ID ok for discharge, midline will be placed today. No fevers in over 24 hours. 2. Transient infectious encephalopathy/delirium Likely secondary to #1. Resolved at this time. 3. New Onset Atrial Fibrillation Resolved. The patient did respond to the use of amiodarone and subsequently converted back to normal sinus rhythm. Amiodarone was discontinued. The patient's Coumadin will be continued along with the heparin drip until her INR is 2.5-3.5. She remains subtherapeutic, may want to switch to Lovenox for bridging. Maintain serum potassium level greater than 4 and magnesium level greater than 2. 4. History of Recurrent Mechanical Falls PT/OT to work with patient. Case management to assist with disposition needs. 5. History of mechanical mitral valve replacement/hypertension/hyperlipidemia/diabetes Complicates care, management, recovery and prognosis. Continue sliding scale insulin coverage. Given lack of ongoing pulmonary/mud mill tender needs, will sign off at this time. Please do not hesitate to contact us with any further questions or concerns. This note was generated with [employer] software. It may contain incorrect words, spelling, and punctuation that were not noted in checking the note before signing.
[2017-10-15 12:16] LABS: Bedside Glucose 284 mg/dL (70-110)
--- NOTE | 2017-10-15 14:16 | CASEMGMT ---
This KONG PALACIO received a call from Nataliya at [facility] and she states that pt iv supplies/meds will be covered at 80% up until $3600 deductible is met and then it will be covered at 100%. Per Nataliya, iv supplies/meds will be $21/day. Pt updated on all at this time and voices understanding. Advised pt that start of care is set for Wednesday at this time, voices understanding. Pt voices no further concerns/needs at this time. SStaten KONG PALACIO
[2017-10-15 14:40] LABS: Partial Thromboplast Time 40.5 Seconds (24.1-36.2)
[2017-10-15 17:56] LABS: Bedside Glucose 153 mg/dL (70-110)
[2017-10-15] MEDS: Atorvastatin Calcium 20 MG Tablet PO (21:51)
[2017-10-15] MEDS: 0.9% NaCl Peripheral Flush Adult/Peds IV (21:55)
[2017-10-15 22:01] LABS: Bedside Glucose 352 mg/dL (70-110)
[2017-10-16] VITALS (11 sets, daily range): BP systolic 127–147; BP diastolic 66–83; PULSE 76–94; RESP 16; TEMP 36.7–36.9; O2SAT 96–99
[2017-10-16 03:22] LABS: Partial Thromboplast Time 58.9 Seconds (24.1-36.2)
[2017-10-16] MEDS: Lactated Ringers 1,000 ML 100 ML IV ×2 (03:51→14:11)
[2017-10-16 07:01] LABS: Bedside Glucose 267 mg/dL (70-110)
[2017-10-16 08:02] LABS: International Normalized Ratio 1.5; Prothrombin Time (Protime)PT. 17.9 SECONDS (11.7-14.9)
[2017-10-16] MEDS: Glucerna Shake 120 ML LIQUID PO ×3 (09:54→21:22)
--- NOTE | 2017-10-16 10:32 | NURSING ---
Dr. Breaux - anthony pacheco, sat dose of Coumadin to 5 mg.
--- NOTE | 2017-10-16 10:45 | PCM.PN.HOSP ---
Patient Problems: Active and Suspected Problems Bacteremia (Acute) Atrial fibrillation (Acute) Bioprosthetic mitral valve replacement, current hospitalization (Acute) Subjective: Patient seen INR still remains subtherapeutic Coumadin dose adjusted from 4 milligrams to 5 mg Objective: GENERAL: cooperative HEENT: Clear conjunctiva, NECK; supple, normal thyroid, CHEST: Clear to auscultation bilaterally, HEART: Regular S1-S2, tachycardic, systolic click ABDOMEN: soft, non-tender, normoactive bowel sounds, RECTAL: deferred EXTREMITIES: No edema, no clubbing, no cyanosis. TIME STUDY ENGINEER: Awake, no lateralizing signs. SKIN: facial bruising Vitals/I&O's: Vital Signs Temp Pulse Resp BP Pulse Ox 98.4 F 86 16 127/80 H 96 10/16/17 09:45 10/16/17 09:45 10/16/17 09:45 10/16/17 09:45 10/16/17 09:45 Oxygen Flow Rate 1 Oxygen Delivery Method Room Air Weight: 58.1 kg Body Mass Index (BMI) 24.3 Intake and Output for Last 24 Hours 10/14/17 10/15/17 10/16/17 23:59 23:59 23:59 Intake Total 3033.8 / 3033.8 2810 / 2810 1353 / 1353 Output Total 2850 / 2850 2525 / 2525 1600 / 1600 Balance 183.8 / 183.8 285 / 285 -247 / -247 Microbiology Past 72 Hours 10/12/17 11:45 Blood Culture (Wb) - No Site/Description Given Blood Culture - Preliminary No growth in 48 hours. Laboratory Results 10/15/17 12:03: POC Glucose 284 H 10/15/17 13:58: APTT 40.5 H 10/15/17 17:47: POC Glucose 153 H 10/15/17 21:10: APTT 73.0 H 10/15/17 21:52: POC Glucose 352 H 10/16/17 03:05: APTT 58.9 H 10/16/17 03:05: PT 17.9 H, INR 1.5 10/16/17 06:45: POC Glucose 267 H Current Medications Acetaminophen (Tylenol) 650 mg PO Q6H PRN PRN PRN Reason: FEVER Last Admin: 10/13/17 16:03 Dose: 650 mg Atorvastatin Calcium (Lipitor) 20 mg PO QHS [facility] Last Admin: 10/15/17 21:51 Dose: 20 mg Dextrose (D50w Syringe) 0 gm IV X1 PRN; Protocol PRN Reason: Hypoglycemia Glucagon () 1 mg IM .X1 PRN PRN Reason: Hypoglycemia Heparin Sodium (Porcine) (Heparin Na) 0 unit IV UD PRN PRN Reason: Protocol Last Admin: 10/15/17 15:02 Dose: 3,000 u Sodium Chloride () 250 mls @ 15 mls/hr IV .[id number] PRN PRN Reason: SALINE FLUSH Last Admin: 10/14/17 10:01 Dose: 15 mls/hr Heparin Sodium/Dextrose () 25,000 units in 250 mls @ 8 mls/hr IV .[id number] [facility]; As Directed PRN Reason: Protocol Last Admin: 10/16/17 01:29 Dose: Not Given Lactated Ringer's () 1,000 mls @ 100 mls/hr IV .Q10H [facility] Last Admin: 10/16/17 03:51 Dose: 100 mls/hr Ceftriaxone Sodium 2 gm/ (Sodium Chloride) 50 mls @ 100 mls/hr IV Q24 [facility] Last Admin: 10/16/17 09:55 Dose: 100 mls/hr Insulin Aspart (Novolog Flexpen (Bkc)) 0 units SC ACHS [facility] PRN Reason: Protocol Last Admin: 10/16/17 08:26 Dose: 2 units Magnesium Hydroxide (Milk Of Magnesia) 30 ml PO DAILY PRN PRN PRN Reason: Constipation Nutritional Formula (Lactose Free) (Glucerna Shake) 120 ml PO 4X/DAY [facility] Last Admin: 10/16/17 09:54 Dose: 120 ml Potassium Chloride (K-Dur) 20 meq PO BIDCM [facility] Last Admin: 10/16/17 08:26 Dose: 20 meq Sodium Chloride () 5 - 30 ml IV UD PRN PRN Reason: SALINE FLUSH Last Admin: 10/15/17 21:55 Dose: 10 ml Warfarin Sodium (Coumadin (Pbkc)) 6 mg PO SuMoWeFr@1700 [facility] Last Admin: 10/15/17 17:44 Dose: 6 mg Warfarin Sodium (Coumadin (Pbkc)) 5 mg PO DAILY@1700 [facility] Assessment/Plan Active and Suspected Problems Bacteremia (Acute) Atrial fibrillation (Acute) Bioprosthetic mitral valve replacement, current hospitalization (Acute) Patient is a 67-year-old lady with history of mechanical mitral valve admitted with acute febrile illness. Patient admitted to the intensive care unit. Blood cultures obtained coming back positive for gram-positive cocci in chains. Patient on broad-spectrum antibiotic therapy with vancomycin and cefepime 1. Streptococcus group C bacteremia: Patient on broad-spectrum antibiotic therapy with vancomycin and cefepime so still not clear seen by infectious disease notes and recommendations reviewed. Patient transthoracic echo was negative for endocarditis is for patient to be treated with a total of 2. History of mitral valve replacement with mechanical valve on systemic anticoagulation with Coumadin INR is subtherapeutic 3. Recurrent falls with left facial contusion plan is to obtain PT and OT eval once patient medical condition is stabilized 4. Dyslipidemia-patient is on statin therapy, continued at home dose 5. Hypertension patient blood pressure currently on the low side 6. Paroxysmal A. fib with RVR patient was started on amiodarone drip on continuous telemetry for now with consultation placed to cardiology back to sinus rhythm on amiodarone discontinued plan is for patient to be discharged home on systemic anticoagulation with Coumadin once INR is therapeutic 7. DVT prophylaxis on Coumadin no need for additional measures Microbiology 10/12/17 11:45 Blood Culture (Wb) - No Site/Description Given Blood Culture - Preliminary No growth in 48 hours. 10/11/17 20:15 Blood Culture (Wb) - Venous Blood Culture - Final Streptococcus group C 10/11/17 20:15 Blood Culture (Wb) - Venous Bacteria Detection (PCR) - Final Strep not Strep pneumo 10/11/17 20:15 Blood Culture (Wb) - Venous Blood Culture - Final Streptococcus group C 10/11/17 20:20 Urine Catheter - Catheter Urine Culture - Final Culture exhibits no growth. 10/12/17 06:50 Mucosa - Nose Respiratory Panel (PCR) - Final Code Visit Inpatient E&M: 32156 Subs Hosp L2
[2017-10-16 11:46] LABS: Bedside Glucose 432 mg/dL (70-110)
--- NOTE | 2017-10-16 13:25 | CASEMGMT ---
Received call from Savanah at [facility] and she would like notified at [phone] when pt to be discharged. Green sheet updated at this time and [facility] community health nurse staff aware. Lisa TRIANA CM
[2017-10-16 16:41] LABS: Bedside Glucose 277 mg/dL (70-110)
[2017-10-16] MEDS: Atorvastatin Calcium 20 MG Tablet PO (21:23)
[2017-10-16] MEDS: HEPARIN/D5w 25,000 UNITS 25,000 UNITS/250 ML IV.SOLN. 8 UNITS IV (21:45)
[2017-10-16 22:41] LABS: Bedside Glucose 269 mg/dL (70-110)
[2017-10-17] VITALS (12 sets, daily range): BP systolic 133–136; BP diastolic 66–78; PULSE 70–108; RESP 16–18; TEMP 36.7–37; O2SAT 95–98
[2017-10-17] MEDS: Lactated Ringers 1,000 ML 100 ML IV ×3 (00:20→21:09)
[2017-10-17] MEDS: Acetaminophen 325 MG Tablet 650 MG PO (03:26)
[2017-10-17 06:32] LABS: Hematocrit 33.4 % (37-47); Hemoglobin 10.8 g/dl (12.0-15.0); Mean Corp Hgb Conc 32.3 g/gl (32-36); Mean Corpuscular Hgb 29.3 pg (27.0-32.0); Mean Corpuscular Volume 90.8 fL (81-99); Mean Platelet Vol. 10.8 fl (6.2-12.0); Platelet Count 396 K/mm3 (150-450); RBC Distribution Width CV 13.9 % (11.6-14.6); RBC Distribution Width SD 44.8 fl (35.1-43.9); Red Blood Count 3.68 M/mm3 (4.2-5.4); White Blood Count 9.2 K/mm3 (4.4-11.0)
[2017-10-17 06:33] LABS: Scan Indicated on CBC? Y/N NO
[2017-10-17 06:34] LABS: Anion Gap 6 (5-15); BUN 13 mg/dL (7-18); BUN/Creat Ratio 24.2 RATIO (10-20); Calcium,Total 9.2 mg/dL (8.5-10.1); Chloride 104 mmol/L (98-107); Creatinine, Serum 0.54 mg/dL (0.55-1.02); EST Glomerular Filtration Rate 120 mL/min (>60); Est Glom Filt Rate - Afr Amer 145 mL/min (>60); Estimated Creatinine Clearance 40.07 ml/min; Glucose 280 mg/dL (74-106); Magnesium 1.7 mg/dL (1.6-2.6); Potassium 4.6 mmol/L (3.5-5.1); Sodium Level 139 mmol/L (136-145)
[2017-10-17 06:53] LABS: International Normalized Ratio 1.7; Prothrombin Time (Protime)PT. 20.1 SECONDS (11.7-14.9)
[2017-10-17 06:54] LABS: Partial Thromboplast Time 53.6 Seconds (24.1-36.2)
[2017-10-17 06:56] LABS: Bedside Glucose 282 mg/dL (70-110)
--- NOTE | 2017-10-17 07:40 | PN_ITS ---
Patient Problems: Active and Suspected Problems Bacteremia (Acute) Atrial fibrillation (Acute) Bioprosthetic mitral valve replacement, current hospitalization (Acute) Subjective: Patient's chest seen, INR still remains subtherapeutic. She is anxious to be discharged once her INR becomes therapeutic Objective: GENERAL: cooperative HEENT: Clear conjunctiva, NECK; supple, normal thyroid, CHEST: Clear to auscultation bilaterally, HEART: Regular S1-S2, tachycardic, systolic click ABDOMEN: soft, non-tender, normoactive bowel sounds, RECTAL: deferred EXTREMITIES: No edema, no clubbing, no cyanosis. BUNCH TRIMMER MOLD: Awake, no lateralizing signs. SKIN: facial bruising Vitals/I&O's: Vital Signs Temp Pulse Resp BP Pulse Ox 98.2 F 72 16 136/75 H 96 10/17/17 03:30 10/17/17 07:00 10/17/17 03:30 10/17/17 03:30 10/17/17 03:30 Oxygen Flow Rate 1 Oxygen Delivery Method Room Air Weight: 58.5 kg Body Mass Index (BMI) 24.3 Intake and Output for Last 24 Hours 10/15/17 10/16/17 10/17/17 23:59 23:59 23:59 Intake Total 2810 / 2810 3526 / 3526 1377 / 1377 Output Total 2525 / 2525 2400 / 2400 650 / 650 Balance 285 / 285 1126 / 1126 727 / 727 Microbiology Past 72 Hours 10/12/17 11:45 Blood Culture (Wb) - No Site/Description Given Blood Culture - Preliminary No growth in 48 hours. Laboratory Results 10/16/17 03:05: PT 17.9 H, INR 1.5 10/16/17 11:37: POC Glucose 432 H 10/16/17 16:29: POC Glucose 277 H 10/16/17 21:21: POC Glucose 269 H 10/17/17 05:10: PT 20.1 H, INR 1.7, APTT 53.6 H 10/17/17 05:10: WBC 9.2, RBC 3.68 L, Hgb 10.8 L, Hct 33.4 L, MCV 90.8, MCH 29.3 , MCHC 32.3, RDW 13.9, RDW Differential 44.8 H, Plt Count 396, MPV 10.8 10/17/17 05:10: Sodium 139, Potassium 4.6, Chloride 104, Carbon Dioxide 29.0, Anion Gap 6, BUN 13, Creatinine 0.54 L, Estim Creat Clear Calc 40.07, Est GFR ( MDRD) Af Amer 145, Est GFR (MDRD) Non-Af 120, BUN/Creatinine Ratio 24.2 H, Glucose 280 H, Calcium 9.2, Magnesium 1.7 10/17/17 06:46: POC Glucose 282 H Current Medications Acetaminophen (Tylenol) 650 mg PO Q6H PRN PRN PRN Reason: FEVER Last Admin: 10/17/17 03:26 Dose: 650 mg Atorvastatin Calcium (Lipitor) 20 mg PO QHS [facility] Last Admin: 10/16/17 21:23 Dose: 20 mg Dextrose (D50w Syringe) 0 gm IV X1 PRN; Protocol PRN Reason: Hypoglycemia Glucagon () 1 mg IM .X1 PRN PRN Reason: Hypoglycemia Heparin Sodium (Porcine) (Heparin Na) 0 unit IV UD PRN PRN Reason: Protocol Last Admin: 10/15/17 15:02 Dose: 3,000 u Sodium Chloride () 250 mls @ 15 mls/hr IV .[id number] PRN PRN Reason: SALINE FLUSH Last Admin: 10/14/17 10:01 Dose: 15 mls/hr Heparin Sodium/Dextrose () 25,000 units in 250 mls @ 8 mls/hr IV .[id number] [facility]; As Directed PRN Reason: Protocol Last Admin: 10/16/17 21:45 Dose: 8 mls/hr Lactated Ringer's () 1,000 mls @ 100 mls/hr IV .Q10H [facility] Last Admin: 10/17/17 00:20 Dose: 100 mls/hr Ceftriaxone Sodium 2 gm/ (Sodium Chloride) 50 mls @ 100 mls/hr IV Q24 [facility] Last Admin: 10/16/17 09:55 Dose: 100 mls/hr Insulin Aspart (Novolog Flexpen (Bkc)) 0 units SC ACHS [facility] PRN Reason: Protocol Last Admin: 10/16/17 21:23 Dose: 2 units Magnesium Hydroxide (Milk Of Magnesia) 30 ml PO DAILY PRN PRN PRN Reason: Constipation Nutritional Formula (Lactose Free) (Glucerna Shake) 120 ml PO 4X/DAY [facility] Last Admin: 10/16/17 21:22 Dose: 120 ml Potassium Chloride (K-Dur) 20 meq PO BIDCM [facility] Last Admin: 10/16/17 16:32 Dose: 20 meq Sodium Chloride () 5 - 30 ml IV UD PRN PRN Reason: SALINE FLUSH Last Admin: 10/15/17 21:55 Dose: 10 ml Warfarin Sodium (Coumadin (Pbkc)) 6 mg PO SuMoWeFr@1700 [facility] Last Admin: 10/15/17 17:44 Dose: 6 mg Warfarin Sodium (Coumadin (Pbkc)) 5 mg PO TuThSa@1700 [facility] Last Admin: 10/16/17 16:32 Dose: 5 mg Assessment/Plan Active and Suspected Problems Bacteremia (Acute) Atrial fibrillation (Acute) Bioprosthetic mitral valve replacement, current hospitalization (Acute) Patient is a 67-year-old lady with history of mechanical mitral valve admitted with acute febrile illness. Patient admitted to the intensive care unit. Blood cultures obtained coming back positive for gram-positive cocci in chains. Patient on broad-spectrum antibiotic therapy with vancomycin and cefepime 1. Streptococcus group C bacteremia: Patient on broad-spectrum antibiotic therapy with vancomycin and cefepime so still not clear seen by infectious disease notes and recommendations reviewed. Patient transthoracic echo was negative for endocarditis is for patient to be treated with a total of 2 weeks 2. History of mitral valve replacement with mechanical valve on systemic anticoagulation with Coumadin INR remains subtherapeutic 3. Recurrent falls with left facial contusion plan is to obtain PT and OT eval once patient medical condition is stabilized 4. Dyslipidemia-patient is on statin therapy, continued at home dose 5. Hypertension patient blood pressure currently on the low side 6. Paroxysmal A. fib with RVR patient was started on amiodarone drip on continuous telemetry for now with consultation placed to cardiology back to sinus rhythm on amiodarone discontinued plan is for patient to be discharged home on systemic anticoagulation with Coumadin once INR is therapeutic 7. DVT prophylaxis on Coumadin no need for additional measures Microbiology 10/12/17 11:45 Blood Culture (Wb) - No Site/Description Given Blood Culture - Preliminary No growth in 48 hours. 10/11/17 20:15 Blood Culture (Wb) - Venous Blood Culture - Final Streptococcus group C 10/11/17 20:15 Blood Culture (Wb) - Venous Bacteria Detection (PCR) - Final Strep not Strep pneumo 10/11/17 20:15 Blood Culture (Wb) - Venous Blood Culture - Final Streptococcus group C 10/11/17 20:20 Urine Catheter - Catheter Urine Culture - Final Culture exhibits no growth. 10/12/17 06:50 Mucosa - Nose Respiratory Panel (PCR) - Final Code Visit Inpatient E&M: 01970 Subs Hosp L2
[2017-10-17] MEDS: Glucerna Shake 120 ML LIQUID PO ×4 (08:33→21:14)
[2017-10-17 11:21] LABS: Bedside Glucose 373 mg/dL (70-110)
[2017-10-17 14:32] LABS: Partial Thromboplast Time 65.9 Seconds (24.1-36.2)
[2017-10-17 16:00] LABS: Bedside Glucose 307 mg/dL (70-110)
[2017-10-17] MEDS: Atorvastatin Calcium 20 MG Tablet PO (21:10)
[2017-10-17 21:29] LABS: Partial Thromboplast Time 60.5 Seconds (24.1-36.2)
[2017-10-17 23:02] LABS: Bedside Glucose 329 mg/dL (70-110)
[2017-10-18] VITALS (10 sets, daily range): BP systolic 119–149; BP diastolic 63–83; PULSE 68–96; RESP 14–16; TEMP 36.7–36.9; O2SAT 96–97
[2017-10-18] MEDS: HEPARIN/D5w 25,000 UNITS 25,000 UNITS/250 ML IV.SOLN. 10 UNITS IV (03:11)
[2017-10-18 04:46] LABS: Hemoglobin 9.8 g/dl (12.0-15.0); Mean Corp Hgb Conc 32.7 g/gl (32-36); Mean Corpuscular Hgb 29.7 pg (27.0-32.0); Mean Corpuscular Volume 90.9 fL (81-99); Mean Platelet Vol. 10.3 fl (6.2-12.0); Platelet Count 340 K/mm3 (150-450); RBC Distribution Width CV 13.9 % (11.6-14.6); RBC Distribution Width SD 44.5 fl (35.1-43.9); White Blood Count 8.6 K/mm3 (4.4-11.0)
[2017-10-18 04:49] LABS: Anion Gap 11 (5-15); BUN 14 mg/dL (7-18); BUN/Creat Ratio 26.1 RATIO (10-20); Calcium,Total 8.7 mg/dL (8.5-10.1); Chloride 103 mmol/L (98-107); Creatinine, Serum 0.54 mg/dL (0.55-1.02); EST Glomerular Filtration Rate 120 mL/min (>60); Est Glom Filt Rate - Afr Amer 145 mL/min (>60); Estimated Creatinine Clearance 40.07 ml/min; Glucose 291 mg/dL (74-106); Potassium 4.2 mmol/L (3.5-5.1); Sodium Level 140 mmol/L (136-145)
[2017-10-18 04:53] LABS: Scan Indicated on CBC? Y/N NO
[2017-10-18 04:58] LABS: International Normalized Ratio 2.1
[2017-10-18 04:59] LABS: Partial Thromboplast Time 65.2 Seconds (24.1-36.2)
[2017-10-18 07:10] LABS: Bedside Glucose 286 mg/dL (70-110)
--- NOTE | 2017-10-18 09:58 | CASEMGMT ---
Received message from Savanah at [facility] from wednesday asking about pt discharge. Call placed to Savanah at this time and updated that pt was not discharged yesterday d/t labs but should go today. Advised Savanah that this RN CM would call her when discharge placed, voices understanding. Call placed to [facility] at this time to notify them that pt still admitted to hospital with probable discharge today, voice understanding. [facility] CM
[2017-10-18] MEDS: Glucerna Shake 120 ML LIQUID PO ×2 (10:28→14:36)
[2017-10-18] MEDS: 0.9% NaCl Peripheral Flush Adult/Peds IV (10:29)
--- NOTE | 2017-10-18 11:48 | PCM.PN.ID ---
Patient Problems: Active and Suspected Problems Bacteremia (Acute) Atrial fibrillation (Acute) Bioprosthetic mitral valve replacement, current hospitalization (Acute) Subjective: Feeling well, no fever, no n/v/d. - Physical Exam General: Alert, Cooperative, No apparent distress Lungs: Clear to auscultation, Normal air movement Cardiovascular: Regular rate, Murmur Abdomen: Soft, Non Tender, Non-Distended Skin: No rashes Vital Signs Temp Pulse Resp BP Pulse Ox 98.5 F 89 15 135/75 H 96 10/18/17 10:25 10/18/17 10:25 10/18/17 10:25 10/18/17 10:25 10/18/17 10:25 Oxygen Flow Rate 1 Oxygen Delivery Method Room Air Weight: 58 kg Body Mass Index (BMI) 24.3 Intake and Output for Last 24 Hours 10/16/17 10/17/17 10/18/17 23:59 23:59 23:59 Intake Total 3526 / 3526 3527 / 3527 1253 / 1253 Output Total 2400 / 2400 2300 / 2300 2200 / 2200 Balance 1126 / 1126 1227 / 1227 -947 / -947 Microbiology Past 72 Hours 10/12/17 11:45 Blood Culture - Final Blood Culture (Wb) - No Site/Description Given No growth in 5 days. Laboratory Tests Past 24 Hrs 10/17/17 10/17/17 10/18/17 14:05 21:00 04:15 WBC 8.6 RBC 3.30 L Hgb 9.8 L Hct 30.0 L MCV 90.9 MCH 29.7 MCHC 32.7 RDW 13.9 RDW Differential 44.5 H Plt Count 340 MPV 10.3 PT INR APTT 65.9 H 60.5 H Sodium Potassium Chloride Carbon Dioxide Anion Gap BUN Creatinine Estim Creat Clear Calc Est GFR (MDRD) Af Amer Est GFR (MDRD) Non-Af BUN/Creatinine Ratio Glucose Calcium 10/18/17 10/18/17 04:15 04:15 WBC RBC Hgb Hct MCV MCH MCHC RDW RDW Differential Plt Count MPV PT 24.0 H INR 2.1 APTT 65.2 H Sodium 140 Potassium 4.2 Chloride 103 Carbon Dioxide 26.0 Anion Gap 11 BUN 14 Creatinine 0.54 L Estim Creat Clear Calc 40.07 Est GFR (MDRD) Af Amer 145 Est GFR (MDRD) Non-Af 120 BUN/Creatinine Ratio 26.1 H Glucose 291 H Calcium 8.7 POC Glucose 10/18/17 10/17/17 10/17/17 06:54 21:08 15:53 POC Glucose 286 H 329 H 307 H Route of nutrition/ use of supplements: [] Nutritional Intake: [] IV Site: [] Christiansen Catheter: [] - Assessment/Plan Antibiotics: [] Assessment/Plan: [] Group C strep bacteremia with h/o mech MVR - given recent abd pain, possible GI source. No dental issues. Lungs and cxr are clear. Fever and tachycardia on presentation. Hypotension improved. Murmur present, but no other sign of endocarditis on exam. LAURA with no veg seen per cardiology. Line in place and plan is for d/c home on iv ceftriaxone for total 2 weeks, stop date 10/25/17. Weekly bmp, cbc while on iv abx, fax to [phone]. ID follow-up prn. Wrote rx for labs and abx. will follow.
[2017-10-18 12:30] LABS: Bedside Glucose 350 mg/dL (70-110)
--- NOTE | 2017-10-18 14:24 | CASEMGMT ---
Per Dr. Baldwin, due to pt's hx of valve replacement, they would like INR to be greater than 2.5 and she would not be able to be discharged until therapeutic. Call to [facility] and [facility] to update them that pt will not be discharged today, voice understanding. Lisa TRIANA CM
--- NOTE | 2017-10-18 15:46 | PCM.PN.HOSP ---
Patient Problems: Active and Suspected Problems Bacteremia (Acute) Atrial fibrillation (Acute) Bioprosthetic mitral valve replacement, current hospitalization (Acute) Subjective: Seen and examined. Eager to be discharged. Denies any chest pain or dizziness or shortness of breath or fever or chills. INR is 2.1. Previous notes reviewed. Vitals/I&O's: Vital Signs Temp Pulse Resp BP Pulse Ox 98.5 F 94 15 135/75 H 96 10/18/17 10:25 10/18/17 15:26 10/18/17 10:25 10/18/17 10:25 10/18/17 10:25 Oxygen Flow Rate (L/min) 1 Oxygen Delivery Method Room Air Weight: 58 kg Body Mass Index (BMI) 24.3 Intake and Output for Last 24 Hours 10/16/17 10/17/17 10/18/17 23:59 23:59 23:59 Intake Total 3526 / 3526 3527 / 3527 1253 / 1253 Output Total 2400 / 2400 2300 / 2300 2200 / 2200 Balance 1126 / 1126 1227 / 1227 -947 / -947 General: Alert, Oriented x3, Cooperative, No apparent distress HEENT: Atraumatic, PERRLA, EOMI, Normocephalic Oral: Moist Mucosa Neck: Supple Lungs: Clear to auscultation, Normal air movement Cardiovascular: Regular rate, Regular Rhythm, Normal S1, Normal S2, No murmurs, - - loud click Abdomen: Bowel Sounds Present, Soft, Non Tender, Non-Distended, No Hepato-splenomegaly Extremities: No edema Skin: No rashes Musculoskeletal: No Tenderness to Palpation of Joints or Extremities Lymphatic: No Cervical, Supraclavicular, or Inguinal Adenopathy Neurological: Cranial nerves II-XII grossly intact, Neuro grossly intact Psych/Mental Status: Normal Affect, Appropriate Microbiology Past 72 Hours 10/12/17 11:45 Blood Culture (Wb) - No Site/Description Given Blood Culture - Final No growth in 5 days. Laboratory Results 10/17/17 15:53: POC Glucose 307 H 10/17/17 21:00: APTT 60.5 H 10/17/17 21:08: POC Glucose 329 H 10/18/17 04:15: WBC 8.6, RBC 3.30 L, Hgb 9.8 L, Hct 30.0 L, MCV 90.9, MCH 29.7, MCHC 32.7, RDW 13.9, RDW Differential 44.5 H, Plt Count 340, MPV 10.3 10/18/17 04:15: PT 24.0 H, INR 2.1, APTT 65.2 H 10/18/17 04:15: Sodium 140, Potassium 4.2, Chloride 103, Carbon Dioxide 26.0, Anion Gap 11, BUN 14, Creatinine 0.54 L, Estim Creat Clear Calc 40.07, Est GFR (MDRD) Af Amer 145, Est GFR (MDRD) Non-Af 120, BUN/Creatinine Ratio 26.1 H, Glucose 291 H, Calcium 8.7 10/18/17 06:54: POC Glucose 286 H 10/18/17 11:28: POC Glucose 350 H Current Medications Acetaminophen (Tylenol) 650 mg PO Q6H PRN PRN PRN Reason: FEVER Last Admin: 10/17/17 03:26 Dose: 650 mg Atorvastatin Calcium (Lipitor) 20 mg PO QHS [facility] Last Admin: 10/17/17 21:10 Dose: 20 mg Dextrose (D50w Syringe) 0 gm IV X1 PRN; Protocol PRN Reason: Hypoglycemia Glucagon () 1 mg IM .X1 PRN PRN Reason: Hypoglycemia Heparin Sodium (Porcine) (Heparin Na) 0 unit IV UD PRN PRN Reason: Protocol Last Admin: 10/15/17 15:02 Dose: 3,000 u Sodium Chloride () 250 mls @ 15 mls/hr IV .[id number] PRN PRN Reason: SALINE FLUSH Last Admin: 10/14/17 10:01 Dose: 15 mls/hr Heparin Sodium/Dextrose () 25,000 units in 250 mls @ 8 mls/hr IV .[id number] [facility]; As Directed PRN Reason: Protocol Last Admin: 10/18/17 03:11 Dose: 10 mls/hr Ceftriaxone Sodium 2 gm/ (Sodium Chloride) 50 mls @ 100 mls/hr IV Q24 [facility] Last Admin: 10/18/17 10:28 Dose: 100 mls/hr Insulin Aspart (Novolog Flexpen (Bkc)) 0 units SC ACHS [facility] PRN Reason: Protocol Last Admin: 10/18/17 11:31 Dose: 4 units Magnesium Hydroxide (Milk Of Magnesia) 30 ml PO DAILY PRN PRN PRN Reason: Constipation Nutritional Formula (Lactose Free) (Glucerna Shake) 120 ml PO 4X/DAY [facility] Last Admin: 10/18/17 14:36 Dose: 120 ml Potassium Chloride (K-Dur) 20 meq PO BIDCM [facility] Last Admin: 10/18/17 07:33 Dose: 20 meq Sodium Chloride () 5 - 30 ml IV UD PRN PRN Reason: SALINE FLUSH Last Admin: 10/18/17 10:29 Dose: 20 ml Warfarin Sodium (Coumadin (Pbkc)) 6 mg PO SuMoWeFr@1700 [facility] Last Admin: 10/17/17 16:02 Dose: 6 mg Warfarin Sodium (Coumadin (Pbkc)) 5 mg PO TuThSa@1700 [facility] Last Admin: 10/16/17 16:32 Dose: 5 mg Assessment/Plan Active and Suspected Problems Bacteremia (Acute) Atrial fibrillation (Acute) Bioprosthetic mitral valve replacement, current hospitalization (Acute) 67-year-old lady with history of mechanical mitral valve admitted with fever, hypotension, initially managed in ICU. Blood cultures grew Streptococcus group C. 1. Streptococcus group C bacteremia, LAURA negative for endocarditis, on IV ceftriaxone for total of 2 weeks, stop date 10/25/17. 2. History of mitral valve replacement with mechanical valve, INR remains subtrherapeutic, on heparin drip and coumadin, will check INR in am. 3. Recurrent falls with left facial contusion 4. Dyslipidemia, on statin therapy 5. Hypertension, controlled 6. Paroxysmal A. fib, in NSR 7. DVT prophylaxis - on Coumadin Code Visit Inpatient E&M: 65509 Disch Hosp
--- NOTE | 2017-10-18 15:50 | PN_ITS ---
Patient Problems: Active and Suspected Problems Bacteremia (Acute) Atrial fibrillation (Acute) Bioprosthetic mitral valve replacement, current hospitalization (Acute) Subjective: Seen and examined. Eager to be discharged. Denies any chest pain or dizziness or shortness of breath or fever or chills. INR is 2.1. Previous notes reviewed. Vitals/I&O's: Vital Signs Temp Pulse Resp BP Pulse Ox 98.5 F 94 15 135/75 H 96 10/18/17 10:25 10/18/17 15:26 10/18/17 10:25 10/18/17 10:25 10/18/17 10:25 Oxygen Flow Rate (L/min) 1 Oxygen Delivery Method Room Air Weight: 58 kg Body Mass Index (BMI) 24.3 Intake and Output for Last 24 Hours 10/16/17 10/17/17 10/18/17 23:59 23:59 23:59 Intake Total 3526 / 3526 3527 / 3527 1253 / 1253 Output Total 2400 / 2400 2300 / 2300 2200 / 2200 Balance 1126 / 1126 1227 / 1227 -947 / -947 General: Alert, Oriented x3, Cooperative, No apparent distress HEENT: Atraumatic, PERRLA, EOMI, Normocephalic Oral: Moist Mucosa Neck: Supple Lungs: Clear to auscultation, Normal air movement Cardiovascular: Regular rate, Regular Rhythm, Normal S1, Normal S2, No murmurs, - - loud click Abdomen: Bowel Sounds Present, Soft, Non Tender, Non-Distended, No Hepato- splenomegaly Extremities: No edema Skin: No rashes Musculoskeletal: No Tenderness to Palpation of Joints or Extremities Lymphatic: No Cervical, Supraclavicular, or Inguinal Adenopathy Neurological: Cranial nerves II-XII grossly intact, Neuro grossly intact Psych/Mental Status: Normal Affect, Appropriate Microbiology Past 72 Hours 10/12/17 11:45 Blood Culture (Wb) - No Site/Description Given Blood Culture - Final No growth in 5 days. Laboratory Results 10/17/17 15:53: POC Glucose 307 H 10/17/17 21:00: APTT 60.5 H 10/17/17 21:08: POC Glucose 329 H 10/18/17 04:15: WBC 8.6, RBC 3.30 L, Hgb 9.8 L, Hct 30.0 L, MCV 90.9, MCH 29.7, MCHC 32.7, RDW 13.9, RDW Differential 44.5 H, Plt Count 340, MPV 10.3 10/18/17 04:15: PT 24.0 H, INR 2.1, APTT 65.2 H 10/18/17 04:15: Sodium 140, Potassium 4.2, Chloride 103, Carbon Dioxide 26.0, Anion Gap 11, BUN 14, Creatinine 0.54 L, Estim Creat Clear Calc 40.07, Est GFR ( MDRD) Af Amer 145, Est GFR (MDRD) Non-Af 120, BUN/Creatinine Ratio 26.1 H, Glucose 291 H, Calcium 8.7 10/18/17 06:54: POC Glucose 286 H 10/18/17 11:28: POC Glucose 350 H Current Medications Acetaminophen (Tylenol) 650 mg PO Q6H PRN PRN PRN Reason: FEVER Last Admin: 10/17/17 03:26 Dose: 650 mg Atorvastatin Calcium (Lipitor) 20 mg PO QHS EFREN Last Admin: 10/17/17 21:10 Dose: 20 mg Dextrose (D50w Syringe) 0 gm IV X1 PRN; Protocol PRN Reason: Hypoglycemia Glucagon () 1 mg IM .X1 PRN PRN Reason: Hypoglycemia Heparin Sodium (Porcine) (Heparin Na) 0 unit IV UD PRN PRN Reason: Protocol Last Admin: 10/15/17 15:02 Dose: 3,000 u Sodium Chloride () 250 mls @ 15 mls/hr IV .[id number] PRN PRN Reason: SALINE FLUSH Last Admin: 10/14/17 10:01 Dose: 15 mls/hr Heparin Sodium/Dextrose () 25,000 units in 250 mls @ 8 mls/hr IV .[id number] EFREN; As Directed PRN Reason: Protocol Last Admin: 10/18/17 03:11 Dose: 10 mls/hr Ceftriaxone Sodium 2 gm/ (Sodium Chloride) 50 mls @ 100 mls/hr IV Q24 EFREN Last Admin: 10/18/17 10:28 Dose: 100 mls/hr Insulin Aspart (Novolog Flexpen (Bkc)) 0 units SC ACHS EFREN PRN Reason: Protocol Last Admin: 10/18/17 11:31 Dose: 4 units Magnesium Hydroxide (Milk Of Magnesia) 30 ml PO DAILY PRN PRN PRN Reason: Constipation Nutritional Formula (Lactose Free) (Glucerna Shake) 120 ml PO 4X/DAY [facility] Last Admin: 10/18/17 14:36 Dose: 120 ml Potassium Chloride (K-Dur) 20 meq PO BIDCM [facility] Last Admin: 10/18/17 07:33 Dose: 20 meq Sodium Chloride () 5 - 30 ml IV UD PRN PRN Reason: SALINE FLUSH Last Admin: 10/18/17 10:29 Dose: 20 ml Warfarin Sodium (Coumadin (Pbkc)) 6 mg PO SuMoWeFr@1700 [facility] Last Admin: 10/17/17 16:02 Dose: 6 mg Warfarin Sodium (Coumadin (Pbkc)) 5 mg PO TuThSa@1700 [facility] Last Admin: 10/16/17 16:32 Dose: 5 mg Assessment/Plan Active and Suspected Problems Bacteremia (Acute) Atrial fibrillation (Acute) Bioprosthetic mitral valve replacement, current hospitalization (Acute) 67-year-old lady with history of mechanical mitral valve admitted with fever, hypotension, initially managed in ICU. Blood cultures grew Streptococcus group C. 1. Streptococcus group C bacteremia, LAURA negative for endocarditis, on IV ceftriaxone for total of 2 weeks, stop date 10/25/17. 2. History of mitral valve replacement with mechanical valve, INR remains subtrherapeutic, on heparin drip and coumadin, will check INR in am. 3. Recurrent falls with left facial contusion 4. Dyslipidemia, on statin therapy 5. Hypertension, controlled 6. Paroxysmal A. fib, in NSR 7. DVT prophylaxis - on Coumadin Code Visit Inpatient E&M: [id number] Disch Hosp
[2017-10-18] MEDS: Acetaminophen 325 MG Tablet 650 MG PO (19:00)
[2017-10-18] MEDS: Atorvastatin Calcium 20 MG Tablet PO (22:30)
[2017-10-19] VITALS (10 sets, daily range): BP systolic 121–146; BP diastolic 72–86; PULSE 74–100; RESP 16; TEMP 36.6–37.1; O2SAT 94–99
[2017-10-19 00:06] LABS: Bedside Glucose 333 mg/dL (70-110)
[2017-10-19 00:46] LABS: Bedside Glucose 240 mg/dL (70-110)
[2017-10-19 05:25] LABS: International Normalized Ratio 2.3; Prothrombin Time (Protime)PT. 25.8 SECONDS (11.7-14.9)
[2017-10-19 05:28] LABS: Anion Gap 8 (5-15); BUN 15 mg/dL (7-18); BUN/Creat Ratio 29.8 RATIO (10-20); Calcium,Total 9.2 mg/dL (8.5-10.1); Chloride 103 mmol/L (98-107); EST Glomerular Filtration Rate 129 mL/min (>60); Est Glom Filt Rate - Afr Amer 156 mL/min (>60); Estimated Creatinine Clearance 40.07 ml/min; Glucose 302 mg/dL (74-106); Potassium 4.2 mmol/L (3.5-5.1); Sodium Level 138 mmol/L (136-145)
[2017-10-19 06:24] LABS: Partial Thromboplast Time 62.1 Seconds (24.1-36.2)
[2017-10-19] MEDS: HEPARIN/D5w 25,000 UNITS 25,000 UNITS/250 ML IV.SOLN. 8 UNITS IV (06:26)
[2017-10-19] MEDS: 0.9% NaCl Peripheral Flush Adult/Peds IV (06:27)
[2017-10-19 07:01] LABS: Bedside Glucose 320 mg/dL (70-110)
--- NOTE | 2017-10-19 09:31 | NURSING ---
Pt c/o dry nose, bloody nose, Dr. Menendez ordered saline spray prn.
[2017-10-19] MEDS: Glucerna Shake 120 ML LIQUID PO ×4 (09:39→21:18)
[2017-10-19] MEDS: LINAGLIPTIN 5 MG TABLET PO (10:44)
[2017-10-19 11:46] LABS: Bedside Glucose 384 mg/dL (70-110)
--- NOTE | 2017-10-19 13:29 | PCM.PN.HOSP ---
Patient Problems: Active and Suspected Problems Bacteremia (Acute) Atrial fibrillation (Acute) Bioprosthetic mitral valve replacement, current hospitalization (Acute) Subjective: Patient was seen and examined. No new complains. INR 2.3. Denies any other complains. ROS is negative Objective: PHYSICAL EXAM: General: Alert, Oriented x3, Cooperative, No apparent distress HEENT: Atraumatic, PERRLA, EOMI, Normocephalic Oral: Moist Mucosa Neck: Supple Lungs: Clear to auscultation, Normal air movement Cardiovascular: Regular rate, Regular Rhythm, Normal S1, Normal S2, No murmurs, - - loud click Abdomen: Bowel Sounds Present, Soft, Non Tender, Non-Distended, No Hepato-splenomegaly Extremities: No edema Skin: No rashes Musculoskeletal: No Tenderness to Palpation of Joints or Extremities Lymphatic: No Cervical, Supraclavicular, or Inguinal Adenopathy Neurological: Cranial nerves II-XII grossly intact, Neuro grossly intact Psych/Mental Status: Normal Affect, Appropriate Vitals/I&O's: Vital Signs Temp Pulse Resp BP Pulse Ox 97.9 F 93 16 139/81 H 99 10/19/17 09:46 10/19/17 10:56 10/19/17 09:46 10/19/17 09:46 10/19/17 09:46 Oxygen Flow Rate (L/min) 1 Oxygen Delivery Method Room Air Weight: 57.8 kg Body Mass Index (BMI) 24.3 Intake and Output for Last 24 Hours 10/17/17 10/18/17 10/19/17 23:59 23:59 23:59 Intake Total 3527 / 3527 1976 / 1976 918 / 918 Output Total 2300 / 2300 2750 / 2750 750 / 750 Balance 1227 / 1227 -773 / -773 168 / 168 Microbiology Past 72 Hours 10/12/17 11:45 Blood Culture (Wb) - No Site/Description Given Blood Culture - Final No growth in 5 days. Laboratory Results 10/18/17 16:42: POC Glucose 240 H 10/18/17 22:28: POC Glucose 333 H 10/19/17 04:55: Sodium 138, Potassium 4.2, Chloride 103, Carbon Dioxide 27.0, Anion Gap 8, BUN 15, Creatinine 0.50 L, Estim Creat Clear Calc 40.07, Est GFR (MDRD) Af Amer 156, Est GFR (MDRD) Non-Af 129, BUN/Creatinine Ratio 29.8 H, Glucose 302 H, Calcium 9.2 10/19/17 04:55: PT 25.8 H, INR 2.3 10/19/17 04:55: APTT 62.1 H 10/19/17 06:56: POC Glucose 320 H 10/19/17 11:32: POC Glucose 384 H Current Medications Acetaminophen (Tylenol) 650 mg PO Q6H PRN PRN PRN Reason: FEVER Last Admin: 10/18/17 19:00 Dose: 650 mg Atorvastatin Calcium (Lipitor) 20 mg PO QHS [facility] Last Admin: 10/18/17 22:30 Dose: 20 mg Dextrose (D50w Syringe) 0 gm IV X1 PRN; Protocol PRN Reason: Hypoglycemia Glipizide (Glucotrol Xl) 10 mg PO DAILY@0800 E[facility] Glucagon () 1 mg IM .X1 PRN PRN Reason: Hypoglycemia Heparin Sodium (Porcine) (Heparin Na) 0 unit IV UD PRN PRN Reason: Protocol Last Admin: 10/15/17 15:02 Dose: 3,000 u Sodium Chloride () 250 mls @ 15 mls/hr IV .[id number] PRN PRN Reason: SALINE FLUSH Last Admin: 10/14/17 10:01 Dose: 15 mls/hr Heparin Sodium/Dextrose () 25,000 units in 250 mls @ 8 mls/hr IV .[id number] EFREN; As Directed PRN Reason: Protocol Last Admin: 10/19/17 06:26 Dose: 8 mls/hr Ceftriaxone Sodium 2 gm/ (Sodium Chloride) 50 mls @ 100 mls/hr IV Q24 [facility] Last Admin: 10/19/17 09:39 Dose: 100 mls/hr Insulin Aspart (Novolog Flexpen (Bkc)) 0 units SC ACHS EFREN PRN Reason: Protocol Last Admin: 10/19/17 11:37 Dose: 4 units Lactobacillus Acidophilus (Acidophilus) 1 tablet PO BID [facility] Last Admin: 10/19/17 10:44 Dose: 1 tablet Linagliptin (Tradjenta) 5 mg PO DAILY [facility] Last Admin: 10/19/17 10:44 Dose: 5 mg Magnesium Hydroxide (Milk Of Magnesia) 30 ml PO DAILY PRN PRN PRN Reason: Constipation Metformin HCl (Glucophage) 500 mg PO BIDCM [facility] Nutritional Formula (Lactose Free) (Glucerna Shake) 120 ml PO 4X/DAY [facility] Last Admin: 10/19/17 09:39 Dose: 120 ml Potassium Chloride (K-Dur) 20 meq PO BIDCM [facility] Last Admin: 10/19/17 08:15 Dose: 20 meq Sodium Chloride () 5 - 30 ml IV UD PRN PRN Reason: SALINE FLUSH Last Admin: 10/19/17 06:27 Dose: 20 ml Sodium Chloride ([place] Nasal [place]) 2 spray NASAL TID PRN PRN PRN Reason: NASAL DRYNESS Warfarin Sodium (Coumadin (Pbkc)) 6 mg PO SuMoWeFr@1700 [facility] Last Admin: 10/18/17 16:46 Dose: 6 mg Warfarin Sodium (Coumadin (Pbkc)) 5 mg PO TuThSa@1700 [facility] Last Admin: 10/16/17 16:32 Dose: 5 mg Assessment/Plan Active and Suspected Problems Bacteremia (Acute) Atrial fibrillation (Acute) Bioprosthetic mitral valve replacement, current hospitalization (Acute) 67-year-old lady with history of mechanical mitral valve admitted with fever, hypotension, initially managed in ICU. Blood cultures grew Streptococcus group C. 1. Streptococcus group C bacteremia, LAURA negative for endocarditis, on IV ceftriaxone for total of 2 weeks, stop date 10/25/17. 2. History of mitral valve replacement with mechanical valve, INR remains subtrherapeutic at 2.3, on heparin drip and coumadin, check INR in am. 3. Recurrent falls with left facial contusion 4. Dyslipidemia, on statin therapy 5. Hypertension, controlled 6. Paroxysmal A. fib, in NSR 7. Type 2DM, BS are uncontrolled secondary to metformin on hold and also glucose in heparin drip, resume home glipizide and metformin, continue with accucheks and ISS 8. DVT prophylaxis - on Coumadin Code Visit Inpatient E&M: [id number] [facility] H[facility] L2
--- NOTE | 2017-10-19 13:32 | PN_ITS ---
Patient Problems: Active and Suspected Problems Bacteremia (Acute) Atrial fibrillation (Acute) Bioprosthetic mitral valve replacement, current hospitalization (Acute) Subjective: Patient was seen and examined. No new complains. INR 2.3. Denies any other complains. ROS is negative Objective: PHYSICAL EXAM: General: Alert, Oriented x3, Cooperative, No apparent distress HEENT: Atraumatic, PERRLA, EOMI, Normocephalic Oral: Moist Mucosa Neck: Supple Lungs: Clear to auscultation, Normal air movement Cardiovascular: Regular rate, Regular Rhythm, Normal S1, Normal S2, No murmurs, - - loud click Abdomen: Bowel Sounds Present, Soft, Non Tender, Non-Distended, No Hepato- splenomegaly Extremities: No edema Skin: No rashes Musculoskeletal: No Tenderness to Palpation of Joints or Extremities Lymphatic: No Cervical, Supraclavicular, or Inguinal Adenopathy Neurological: Cranial nerves II-XII grossly intact, Neuro grossly intact Psych/Mental Status: Normal Affect, Appropriate Vitals/I&O's: Vital Signs Temp Pulse Resp BP Pulse Ox 97.9 F 93 16 139/81 H 99 10/19/17 09:46 10/19/17 10:56 10/19/17 09:46 10/19/17 09:46 10/19/17 09:46 Oxygen Flow Rate (L/min) 1 Oxygen Delivery Method Room Air Weight: 57.8 kg Body Mass Index (BMI) 24.3 Intake and Output for Last 24 Hours 10/17/17 10/18/17 10/19/17 23:59 23:59 23:59 Intake Total 3527 / 3527 1976 / 1976 918 / 918 Output Total 2300 / 2300 2750 / 2750 750 / 750 Balance 1227 / 1227 -773 / -773 168 / 168 Microbiology Past 72 Hours 10/12/17 11:45 Blood Culture (Wb) - No Site/Description Given Blood Culture - Final No growth in 5 days. Laboratory Results 10/18/17 16:42: POC Glucose 240 H 10/18/17 22:28: POC Glucose 333 H 10/19/17 04:55: Sodium 138, Potassium 4.2, Chloride 103, Carbon Dioxide 27.0, Anion Gap 8, BUN 15, Creatinine 0.50 L, Estim Creat Clear Calc 40.07, Est GFR ( MDRD) Af Amer 156, Est GFR (MDRD) Non-Af 129, BUN/Creatinine Ratio 29.8 H, Glucose 302 H, Calcium 9.2 10/19/17 04:55: PT 25.8 H, INR 2.3 10/19/17 04:55: APTT 62.1 H 10/19/17 06:56: POC Glucose 320 H 10/19/17 11:32: POC Glucose 384 H Current Medications Acetaminophen (Tylenol) 650 mg PO Q6H PRN PRN PRN Reason: FEVER Last Admin: 10/18/17 19:00 Dose: 650 mg Atorvastatin Calcium (Lipitor) 20 mg PO QHS [facility] Last Admin: 10/18/17 22:30 Dose: 20 mg Dextrose (D50w Syringe) 0 gm IV X1 PRN; Protocol PRN Reason: Hypoglycemia Glipizide (Glucotrol Xl) 10 mg PO DAILY@0800 [facility] Glucagon () 1 mg IM .X1 PRN PRN Reason: Hypoglycemia Heparin Sodium (Porcine) (Heparin Na) 0 unit IV UD PRN PRN Reason: Protocol Last Admin: 10/15/17 15:02 Dose: 3,000 u Sodium Chloride () 250 mls @ 15 mls/hr IV .[id number] PRN PRN Reason: SALINE FLUSH Last Admin: 10/14/17 10:01 Dose: 15 mls/hr Heparin Sodium/Dextrose () 25,000 units in 250 mls @ 8 mls/hr IV .[id number] EFREN; As Directed PRN Reason: Protocol Last Admin: 10/19/17 06:26 Dose: 8 mls/hr Ceftriaxone Sodium 2 gm/ (Sodium Chloride) 50 mls @ 100 mls/hr IV Q24 [facility] Last Admin: 10/19/17 09:39 Dose: 100 mls/hr Insulin Aspart (Novolog Flexpen (Bkc)) 0 units SC ACHS EFREN PRN Reason: Protocol Last Admin: 10/19/17 11:37 Dose: 4 units Lactobacillus Acidophilus (Acidophilus) 1 tablet PO BID [facility] Last Admin: 10/19/17 10:44 Dose: 1 tablet Linagliptin (Tradjenta) 5 mg PO DAILY [facility] Last Admin: 10/19/17 10:44 Dose: 5 mg Magnesium Hydroxide (Milk Of Magnesia) 30 ml PO DAILY PRN PRN PRN Reason: Constipation Metformin HCl (Glucophage) 500 mg PO BIDCM [facility] Nutritional Formula (Lactose Free) (Glucerna Shake) 120 ml PO 4X/DAY [facility] Last Admin: 10/19/17 09:39 Dose: 120 ml Potassium Chloride (K-Dur) 20 meq PO BIDCM [facility] Last Admin: 10/19/17 08:15 Dose: 20 meq Sodium Chloride () 5 - 30 ml IV UD PRN PRN Reason: SALINE FLUSH Last Admin: 10/19/17 06:27 Dose: 20 ml Sodium Chloride ([place] Nasal [place]) 2 spray NASAL TID PRN PRN PRN Reason: NASAL DRYNESS Warfarin Sodium (Coumadin (Pbkc)) 6 mg PO SuMoWeFr@1700 [facility] Last Admin: 10/18/17 16:46 Dose: 6 mg Warfarin Sodium (Coumadin (Pbkc)) 5 mg PO TuThSa@1700 [facility] Last Admin: 10/16/17 16:32 Dose: 5 mg Assessment/Plan Active and Suspected Problems Bacteremia (Acute) Atrial fibrillation (Acute) Bioprosthetic mitral valve replacement, current hospitalization (Acute) 67-year-old lady with history of mechanical mitral valve admitted with fever, hypotension, initially managed in ICU. Blood cultures grew Streptococcus group C. 1. Streptococcus group C bacteremia, LAURA negative for endocarditis, on IV ceftriaxone for total of 2 weeks, stop date 10/25/17. 2. History of mitral valve replacement with mechanical valve, INR remains subtrherapeutic at 2.3, on heparin drip and coumadin, check INR in am. 3. Recurrent falls with left facial contusion 4. Dyslipidemia, on statin therapy 5. Hypertension, controlled 6. Paroxysmal A. fib, in NSR 7. Type 2DM, BS are uncontrolled secondary to metformin on hold and also glucose in heparin drip, resume home glipizide and metformin, continue with accucheks and ISS 8. DVT prophylaxis - on Coumadin Code Visit Inpatient E&M: [id number] [facility] Hosp L2
--- NOTE | 2017-10-19 15:28 | CASEMGMT ---
[facility] and [facility] updated that pt not to be discharged yet, voice understanding. Both request that this RN CM notify them earlier on day of discharge if possible. SStaten RN CM
[2017-10-19 19:11] LABS: Bedside Glucose 276 mg/dL (70-110)
[2017-10-19] MEDS: Atorvastatin Calcium 20 MG Tablet PO (21:19)
[2017-10-19 21:30] LABS: Bedside Glucose 215 mg/dL (70-110)
[2017-10-20 03:14] VITALS: BP 125/66; PULSE 90; RESP 16; TEMP 36.9; O2SAT 95
[2017-10-20 03:16] VITALS: PULSE 87
--- NOTE | 2017-10-20 06:23 | PCM.PN.ID ---
Patient Problems: Active and Suspected Problems Bacteremia (Acute) Atrial fibrillation (Acute) Bioprosthetic mitral valve replacement, current hospitalization (Acute) Subjective: Feeling fine, wants to go home, no fever, no n/v/d. No issues with line. - Physical Exam General: Alert, Cooperative, No apparent distress Lungs: Clear to auscultation, Normal air movement Cardiovascular: Regular rate, Regular Rhythm, - - click Abdomen: Soft, Non Tender, Non-Distended Skin: No rashes Vital Signs Temp Pulse Resp BP Pulse Ox 98.4 F 87 16 125/66 H 95 10/20/17 03:14 10/20/17 03:16 10/20/17 03:14 10/20/17 03:14 10/20/17 03:14 Oxygen Flow Rate (L/min) 1 Oxygen Delivery Method Room Air Weight: 57.8 kg Body Mass Index (BMI) 24.3 Intake and Output for Last 24 Hours 10/18/17 10/19/17 10/20/17 23:59 23:59 23:59 Intake Total 1976 / 1976 1540 / 1540 Output Total 2750 / 2750 750 / 750 Balance -773 / -773 790 / 790 Microbiology Past 72 Hours 10/12/17 11:45 Blood Culture - Final Blood Culture (Wb) - No Site/Description Given No growth in 5 days. Laboratory Tests Past 24 Hrs 10/19/17 04:55 APTT 62.1 H POC Glucose 10/19/17 10/19/17 10/19/17 21:13 16:39 11:32 POC Glucose 215 H 276 H 384 H 10/19/17 06:56 POC Glucose 320 H Route of nutrition/ use of supplements: [] Nutritional Intake: [] IV Site: [] Christiansen Catheter: [] - Assessment/Plan Antibiotics: [] Assessment/Plan: [] Group C strep bacteremia with h/o mech MVR - given recent abd pain, possible GI source. No dental issues. Lungs and cxr are clear. Fever and tachycardia on presentation. Hypotension improved. Murmur present, but no other sign of endocarditis on exam. LAURA with no veg seen per cardiology. Line in place and plan is for d/c home on iv ceftriaxone for total 2 weeks, stop date 10/25/17. Weekly bmp, cbc while on iv abx, fax to [phone]. ID follow-up prn. Wrote rx for labs and abx. Started probiotic. will follow.
[2017-10-20 06:41] LABS: International Normalized Ratio 2.5; Prothrombin Time (Protime)PT. 26.9 SECONDS (11.7-14.9)
[2017-10-20 06:42] LABS: Partial Thromboplast Time 51.7 Seconds (24.1-36.2)
[2017-10-20 07:01] LABS: Bedside Glucose 241 mg/dL (70-110)
[2017-10-20 07:10] VITALS: PULSE 82
[2017-10-20 08:08] VITALS: BP 138/83; PULSE 89; RESP 18; TEMP 36.8; O2SAT 97
[2017-10-20 08:09] VITALS: RESP 18
--- NOTE | 2017-10-20 09:10 | DCINST_ITS ---
- Discharge Diagnoses Current Active Problems: Current Active and Chronic Problems Bacteremia (Acute) Atrial fibrillation (Acute) Bioprosthetic mitral valve replacement, current hospitalization (Acute) Reason(s) for Visit for Discharge Instructions: Confusion, fever You will use the following diet at home:: Calorie/Carbohydrate Controlled ( specify 1200, 1400, etc), Cardiac Your food should be the consistency of: Regular Your liquids should be the consistency of: Regular/Thin Discharge Activity: Return to Normal Activity Additional Instructions: Continue all your medications. Report to your doctor if you develop fever or notice any bleeding from your gums, in your stool or urine whilst on the blood thinners. Follow-up with coumadin clinic for INR within 2 days Allergies/Adverse Reactions: Allergies Calcium Channel Blocking Agent Dilt [Calcium Channel Blocking Agents-Win] Allergy (Verified 10/11/17 19:48) Rash Medications to take at Discharge Atenolol [Tenormin (beta esau)] 50 mg PO DAILY 07/10/13 Gemfibrozil [Lopid] 600 mg PO BIDAC 07/10/13 Lisinopril [Zestril] 10 mg PO DAILY 07/10/13 Metformin HCl [Glucophage] 500 mg PO BIDCM 07/10/13 Simvastatin [Zocor] 40 mg PO QHS 07/10/13 Ceftriaxone 2 gm IV Q24 10 Days vial 10/15/17 Acetaminophen [Tylenol Tablet] 650 mg PO Q6H PRN PRN tablet 10/20/17 GlipiZIDE (XL) [Glucotrol Xl] 10 mg PO DAILY@0800 tablet 10/20/17 Lactobacillus Acidophilus [Acidophilus] 1 tab PO BID #60 tab 10/20/17 Warfarin [Coumadin] 5 mg PO TuThSa@1700 tablet 10/20/17 Warfarin [Coumadin] 6 mg PO SuMoWeFr@1700 tablet 10/20/17 The following prescriptions were given: Lactobacillus Acidophilus [Acidophilus] 1 tab PO BID #60 tab Primary Care Physician: Gwen David MD [Primary Care Provider] - Please follow up with your Primary Care Physician in: within 2 weeks Please Follow Up With: Talib Sanchez MD When: in 2 weeks Please Follow Up With: Wesley Gerardo MD When: in 2 weeks or as scheduled Proposed Discharge Date: 10/20/17
--- NOTE | 2017-10-20 09:10 | PCM.DC.SUM ---
Discharge Date and Diagnosis Date of Admission: 10/11/17 Date of Discharge: 10/20/17 - Primary Discharge Diagnosis Active and Suspected Problems Bacteremia (Acute) Atrial fibrillation (Acute) Bioprosthetic mitral valve replacement, current hospitalization (Acute) - Secondary Discharge Diagnosis Hypertension Hyperlipidemia Type 2DM Hospital Course and Treatment Imaging Results: Clinical Impression(s) from Imaging Studies Chest X-Ray 10/11/17 20:10 IMPRESSION: There are no acute findings. Electronically Signed: Dequan Carrillo MD at 20:38 EST , Service support , ADDENDUM: 10/11/17 2046 IMPRESSION: There are no acute findings. Electronically Signed: Dequan Carrillo MD at 20:39 EST , Service support , Brain CT 10/11/17 20:55 IMPRESSION: Chronic involutional changes of the brain. There are no acute findings. Electronically Signed: Dequan Carrillo MD at 21:40 EST , Service support , Chest X-Ray 10/12/17 06:36 IMPRESSION: Stable examination. Electronically Signed: Abelino Davenport MD at 8:18 EST Tel [phone], Service support , Cardiology Infectious disease Operations: None Procedures: Transesophageal Echo Summary of Care Provided: The patient is a 67 year old F with past medical history of mechanical valve replacement, brought into the hospital with confusion for 2-3 days, fever and hypotension. She was said to have been ill for the month of September, mainly with upper respiratory symptoms, but was afraid to see a doctor because she felt she will be given abtibiotics which would interfere with her Coumadin. She did sustain a mechanical fall in the house 4 days prior to admission that led to facial contusions. Managed initially in the ICU with IV fluids and antibiotics. Cultures grew streptococcal bacteremia group c. Disease was consulted, patient was initially managed on IV vancomycin and cefepime and later on changed to IV ceftriaxone. LAURA was done with no vegetations seen by cardiology. Patient's hospital course was prolonged because we are waiting for INR to be therapeutic. PICC line was placed, and patient was discharged home on IV ceftriaxone for a total of 2 weeks with a stop date of 10/25/2017. Labs per infectious disease. We will discharge, patient can complained of some epistaxis, which resolved with nose pinches, given some saline drops and asked her to monitor her epistaxis to ENT if it persists. INR on the day of discharge was 2.5 and patient to continue on the Coumadin schedule as well as follow-up for INR monitoring. Discharge Diet: Low fat/ Low Cholesterol, 2000 mg Sodium Diet, Carb Control Diet Discharge Activity: Return to Normal Activity Home Medications: Medications to take at Discharge Atenolol [Tenormin (beta esau)] 50 mg PO DAILY 07/10/13 Gemfibrozil [Lopid] 600 mg PO BIDAC 07/10/13 Lisinopril [Zestril] 10 mg PO DAILY 07/10/13 Metformin HCl [Glucophage] 500 mg PO BIDCM 07/10/13 Simvastatin [Zocor] 40 mg PO QHS 07/10/13 Ceftriaxone 2 gm IV Q24 10 Days vial 10/15/17 Acetaminophen [Tylenol Tablet] 650 mg PO Q6H PRN PRN tablet 10/20/17 GlipiZIDE (XL) [Glucotrol Xl] 10 mg PO DAILY@0800 tablet 10/20/17 Lactobacillus Acidophilus [Acidophilus] 1 tab PO BID #60 tab 10/20/17 Sodium Chloride 0.65% [[place] Nasal [place]] 2 spray NASAL TID PRN PRN #1 spray.btl 10/20/17 Warfarin [Coumadin] 5 mg PO TuThSa@1700 tablet 10/20/17 Warfarin [Coumadin] 6 mg PO SuMoWeFr@1700 tablet 10/20/17 Following Prescrptions Were Given to Patient: Sodium Chloride 0.65% [[place] Nasal [place]] 2 spray NASAL TID PRN PRN #1 spray.btl PRN Reason: NASAL DRYNESS Lactobacillus Acidophilus [Acidophilus] 1 tab PO BID #60 tab Primary Care Physician: Gwen David MD [Primary Care Provider] - Please follow up with your Primary Care Physician in: within 2 weeks Please Follow Up With: Talib Sanchez MD When: in 2 weeks Please Follow Up With: Wesley Gerardo MD When: in 2 weeks or as scheduled Disposition: Home Minutes spent on discharge:: 25 Patient Condition:: Stable Meaningful Use Info Meaningful Use Diagnoses (Choose all that apply): None applicable Code Visit Inpatient E&M: 42855 Disch Hosp
--- NOTE | 2017-10-20 09:29 | CASEMGMT ---
Per Dr. Baldwin, INR is at 2.5 and pt to be discharged. Call to [facility] to notify them pt is being discharged today, voices understanding and requests that this RN CM fax discharge info and call back to notify them when [facility] will deliver supplies. Call placed to Eneida at [facility] and she is aware that pt will be discharged today and states that they will deliver supplies tonight to pt so that [facility] can do start of care tomorrow am for Ceftriaxone. [facility] and [facility] aware that pt's Ceftriaxone dose was given at 0913 today, voice understanding. This RN CM updated pt on all at this time, voices understanding. Discharge instructions faxed to [facility] at this time. Lisa RN CM
[2017-10-20 13:05] LABS: Partial Thromboplast Time 46.8 Seconds (24.1-36.2)
[2017-10-20 13:21] VITALS: PULSE 94; RESP 20; TEMP 36.9; O2SAT 98
== END 2017-10-20 13:37 | disposition home or self-care (01) | DRG 871 ==
LOC: ED 10-12 00:31 → ICU 10-12 00:32 → PCU 10-14 18:05
PROVIDERS: Internal Medicine; Internal Medicine Critical Care Medicine; Admitting Provider Family Medicine; Emergency Provider Emergency Medicine; Family Provider Internal Medicine; PCP Internal Medicine; Visit Provider Internal Medicine
DX: A40.8 Other streptococcal sepsis (principal); G93.49 Other encephalopathy; W19.XXXA Unspecified fall, initial encounter; E11.9 Type 2 diabetes mellitus without complications; E78.5 Hyperlipidemia, unspecified; Z87.891 Personal history of nicotine dependence; Z79.01 Long term (current) use of anticoagulants; Z79.84 Long term (current) use of oral hypoglycemic drugs; I10 Essential (primary) hypertension; S00.83XA Contusion of other part of head, initial encounter; Y92.008 Other place in unspecified non-institutional (private) residence as the place of occurrence of the external cause; I48.0 Paroxysmal atrial fibrillation; Z95.2 Presence of prosthetic heart valve
CPT/HCPCS: 36415; 51702; 70450; 71045; 80048; 80053; 80202; 80307; 81001; 82550; 82962; 83605; 83735; 84443; 85025; 85027; 85610; 85730; 87040; 87077; 87086; 87149; 87186; 87633; 87641; 93005; 93306; 93312; 93320; 93325; 97110; 97116; 97162; 97166; 97530; 97535; 97802; 99285; J7030; J7040; J7050; J7120; A4216; J0696

== ENCOUNTER 2018-01-30 04:48 | Emergency (ER) | payer MEDICARE, SELFPAY ==
[2018-01-30 04:50] VITALS: BP 128/60; PULSE 85; RESP 16; TEMP 37.1; O2SAT 99; BMI 24.3
--- NOTE | 2018-01-30 05:20 | RAD_ITS ---
STUDY: X-RAY - PELVIS AND RIGHT HIP REASON FOR EXAM: Female, 68 years old. Right hip pain. Recent uterus repair. TECHNIQUE: Radiological exam, hip, unilateral, with pelvis when performed; 2 or 3 views. COMPARISON: None. FINDINGS: There is a non-specific bowel gas pattern. Normal visualized soft tissue structures. Normal bilateral iliac wings, sacroiliac joints and visualized sacrum. Normal bilateral superior and inferior pubic rami. Normal pubic symphysis. Normal bilateral ischial tuberosities. Normal visualized femoral head. Normal acetabulum. Minimal superior hip joint space narrowing. There is appears to be a subtle transverse nondisplaced fracture of the left superior pubic ramus. Surgical clips and coils are narrowing the right hemipelvis. RAD/Hip 2-3 Views with Pelvis IMPRESSION: Nondisplaced fracture left superior pubic ramus. Correlate with CT. Mild degenerative changes of the right hip. Electronically Signed: Jonnathan Thornton MD at 6:05 EDT , Service support ,
--- NOTE | 2018-01-30 05:57 | ED.VISSUMM ---
- ER Visit Summary Date of Service: 01/30/18 Chief Complaint: Atraumatic right hip pain. History of Present Illness: The patient is a 68 F states the last 3 days she is atraumatic right hip discomfort. Worse with movement. She has never had a hip injury or hip surgery. She states that she did recently have a D&C procedure for prolapsed uterus on 01/20/1970. About 1 week after that she started having right lower leg and pelvis pain. Denies any falls or trauma. No fever. No leg pain or swelling. No chest pain or shortness of breath. She denies any redness or warmth. She denies any fever. Physical Examination: Older female no acute distress vital signs stable afebrile. She does not look septic or toxic. H EENT exam unremarkable. Neck nontender no lymphadenopathy. Lungs clear to auscultation bilaterally. Heart regular rate and rhythm no murmur. Chest nontender. Abdomen soft, nontender, nondistended normal bowel sounds no peritoneal signs. Extremities she is moving all 4. They are neurovascularly intact. She has mild discomfort to her right groin region. There is no hernia or mass. No ecchymosis or bruising. She has full internal/external rotation flexion-extension of her right hip. The femur, knee, right lower leg and foot are nontender neurovascular intact with a good DP pulse. Normal dorsi and plantar flexion strength. Normal sensation. She does have increasing pain by rotating her right hip outward. There is no shortening or deformity. Test Results: X-ray of the pelvis and right hip were obtained which showed chronic changes and surgical bharati but no acute abnormality. No fracture or dislocation. Emergency Department Course and Treatment: She is doing well on repeat exam at 0 555. Schedule being discharged home. Discussed with patient his options. Anti-inflammatories. Ice to the groin. Wanted Percocet for pain 12 no refill. Treatment Plan: Discharge to home. Follow-up with her primary care physician. Disposition: Discharge Impression: Acute right hip and pelvis and groin pain secondary to musculoskeletal etiology This note was generated with [employer] software. It may contain incorrect words, spelling, and punctuation that were not noted in review of the chart prior to signing ED Disposition - Plan for ED Patient: Chief Complaint: Lower Extremity Injury Referrals: Gwen David MD [Primary Care Provider] -
--- NOTE | 2018-01-30 06:02 | ED.DEP ---
ED Disposition - Plan for ED Patient: Disposition: Home or Assisted Living Chief Complaint: Lower Extremity Injury Instructions: ED Sprain Hip Prescriptions: Oxycodone HCl/Acetaminophen [Percocet 5/325] 1 tab PO Q4H PRN PRN #20 tab PRN Reason: Pain Referrals: Gwen David MD [Primary Care Provider] - 1 Week if not improving Additional Instructions: Percocet for pain. This should progressively start getting better if not follow-up your primary care physician.
--- NOTE | 2018-01-30 06:06 | DCINST.ED_ITS ---
ED Disposition - Plan for ED Patient: Disposition: Home or Assisted Living Chief Complaint: Lower Extremity Injury Instructions: ED Sprain Hip Prescriptions: Oxycodone HCl/Acetaminophen [Percocet 5/325] 1 tab PO Q4H PRN PRN #20 tab PRN Reason: Pain Referrals: Gwen David MD [Primary Care Provider] - 1 Week if not improving Additional Instructions: Percocet for pain. This should progressively start getting better if not follow -up your primary care physician.
[2018-01-30] MEDS: HYDROcodone Bitartrate/Apap 5/325 Tablet PO (06:11)
[2018-01-30 06:20] VITALS: BP 128/60; PULSE 85; RESP 16; O2SAT 99
== END 2018-01-30 06:21 | disposition home or self-care (01) ==
PROVIDERS: Emergency Provider Emergency Medicine; Family Provider Internal Medicine; PCP Internal Medicine
DX: S76.011A Strain of muscle, fascia and tendon of right hip, initial encounter (principal); X58.XXXA Exposure to other specified factors, initial encounter; Y93.9 Activity, unspecified; E11.9 Type 2 diabetes mellitus without complications; E78.00 Pure hypercholesterolemia, unspecified; Z79.01 Long term (current) use of anticoagulants; Z79.84 Long term (current) use of oral hypoglycemic drugs; Z79.899 Other long term (current) drug therapy
CPT/HCPCS: 73502; 99283

== ENCOUNTER → 2018-02-10 10:21 | Outpatient (CLI) | payer MEDICARE, SELFPAY ==
[2018-02-10 10:38] LABS: Prothrombin Time (Protime)PT. 60.2 SECONDS (11.7-14.9)
[2018-02-10 10:42] LABS: International Normalized Ratio 6.9
== END ==
PROVIDERS: Family Provider Internal Medicine; PCP Internal Medicine; Visit Provider Internal Medicine
DX: Z95.2 Presence of prosthetic heart valve (principal)
CPT/HCPCS: 85610

== ENCOUNTER → 2018-04-21 14:58 | Outpatient (CLI) | payer MEDICARE, SELFPAY ==
[2018-04-21 15:47] LABS: Hematocrit 42.5 % (37-47); Hemoglobin 12.5 g/dl (12.0-15.0); Mean Corp Hgb Conc 29.4 g/gl (32-36); Mean Corpuscular Hgb 26.8 pg (27.0-32.0); Mean Corpuscular Volume 91.2 fL (81-99); Mean Platelet Vol. 11.2 fl (6.2-12.0); Platelet Count 355 K/mm3 (150-450); RBC Distribution Width CV 16.3 % (11.6-14.6); RBC Distribution Width SD 54.2 fl (35.1-43.9); Red Blood Count 4.66 M/mm3 (4.2-5.4); White Blood Count 4.8 K/mm3 (4.4-11.0)
[2018-04-21 15:48] LABS: Scan Indicated on CBC? Y/N NO
[2018-04-21 16:01] LABS: ALB/GLOB Ratio 1.1 RATIO (0.9-2.4); AST(SGOT) 25 U/L (15-37); Alanine Aminotransfer ALT/SGPT 26 U/L (13-56); Alkaline Phosphatase 100 U/L (45-117); Anion Gap 10 (5-15); BUN 21 mg/dL (7-18); BUN/Creat Ratio 32.9 RATIO (10-20); Chloride 104 mmol/L (98-107); Cholesterol 217 mg/dL (200); Creatinine, Serum 0.64 mg/dL (0.55-1.02); EST Glomerular Filtration Rate 98 mL/min (>60); Est Glom Filt Rate - Afr Amer 118 mL/min (>60); Globulin 3.8 g/dL (2.2-4.2); Glucose 177 mg/dL (74-106); High Density Lipoprotein 46 mg/dL; Potassium 4.4 mmol/L (3.5-5.1); Protein, Total 7.8 g/dL (6.4-8.2); Sodium Level 138 mmol/L (136-145); Triglycerides 318 mg/dL; Very Low Density Lipoprotein 64 mg/dL (5-40)
[2018-04-21 16:28] LABS: Hemoglobin A1c 7.2 % (4.2-6.3)
== END ==
PROVIDERS: Family Provider Internal Medicine; PCP Internal Medicine; Visit Provider Internal Medicine
DX: E11.69 Type 2 diabetes mellitus with other specified complication (principal); E78.5 Hyperlipidemia, unspecified
CPT/HCPCS: 80053; 80061; 83036; 85027

== ENCOUNTER → 2018-08-01 11:51 | Outpatient (CLI) | payer MEDICARE, SELFPAY ==
[2018-08-01 12:12] LABS: Hematocrit 42.4 % (37-47); Hemoglobin 13.9 g/dl (12.0-15.0); Mean Corp Hgb Conc 32.8 g/gl (32-36); Mean Corpuscular Volume 91.4 fL (81-99); Mean Platelet Vol. 11.1 fl (6.2-12.0); Platelet Count 355 K/mm3 (150-450); RBC Distribution Width CV 14.9 % (11.6-14.6); RBC Distribution Width SD 48.5 fl (35.1-43.9); Red Blood Count 4.64 M/mm3 (4.2-5.4); White Blood Count 4.6 K/mm3 (4.4-11.0)
[2018-08-01 12:17] LABS: Scan Indicated on CBC? Y/N NO
[2018-08-01 12:23] LABS: ALB/GLOB Ratio 1.1 RATIO (0.9-2.4); AST(SGOT) 19 U/L (15-37); Alanine Aminotransfer ALT/SGPT 24 U/L (13-56); Alkaline Phosphatase 109 U/L (45-117); Anion Gap 10 (5-15); BUN 26 mg/dL (7-18); BUN/Creat Ratio 38.9 RATIO (10-20); Calcium,Total 9.5 mg/dL (8.5-10.1); Chloride 104 mmol/L (98-107); Creatinine, Serum 0.67 mg/dL (0.55-1.02); EST Glomerular Filtration Rate 93 mL/min (>60); Est Glom Filt Rate - Afr Amer 112 mL/min (>60); Globulin 3.6 g/dL (2.2-4.2); Glucose 249 mg/dL (74-106); Potassium 4.7 mmol/L (3.5-5.1); Protein, Total 7.6 g/dL (6.4-8.2); Sodium Level 140 mmol/L (136-145)
[2018-08-01 12:29] LABS: Hemoglobin A1c 8.6 % (4.2-6.3)
--- OUTSIDE RECORDS SUMMARY | 2018-11-03 02:05 | XMS RPT_ITS ---
:1950 Author Organization OHIP Support Name Relationship Address Phone NI STANTON Unavailable [address] + [place] [address] R Unavailable Unavailable Unavailable NI STANTON Unavailable [address] + [place] [address] R Unavailable Unavailable Unavailable NI STANTON Unavailable [address] + [place] [address] R Unavailable Unavailable Unavailable NI STANTON Unavailable [address] + [place] [address] R Unavailable Unavailable Unavailable MELLOT, PAIGE Unavailable [id number] [place] [address] + [place] [address] MELLOT, PAIGE Unavailable [address] [place] [address] + [place] [address] NI STANTON Unavailable [address] + [place] [address] R Unavailable Unavailable Unavailable NI STANTON Unavailable [address] + [place] [address] R Unavailable Unavailable Unavailable NI STANTON Unavailable [address] + [place] [address] R Unavailable Unavailable Unavailable NI STANTON Unavailable [address] + [place] [address] R Unavailable Unavailable Unavailable NI STANTON Unavailable [address] + [place] [address] R Unavailable Unavailable Unavailable NI STANTON Unavailable [address] + [place] [address] R Unavailable Unavailable Unavailable NI STANTON Unavailable [address] + [place] [address] R Unavailable Unavailable Unavailable NI STANTON Unavailable [address] + [place] [address] R Unavailable Unavailable Unavailable NI STANTON Unavailable [address] + [place] [address] R Unavailable Unavailable Unavailable NI STANTON Unavailable [address] + [place] [address] R Unavailable Unavailable Unavailable NI STANTON Unavailable [address] + [place] [address] R Unavailable Unavailable Unavailable NI STANTON Unavailable [address] + [place] [address] R Unavailable Unavailable Unavailable NI STANTON Unavailable [address] + [place] [address] R Unavailable Unavailable Unavailable NI STANTON Unavailable [address] + [place] [address] R Unavailable Unavailable Unavailable NI STANTON Unavailable [address] + [place] [address] R Unavailable Unavailable Unavailable NI STANTON Unavailable [address] + [place] [address] R Unavailable Unavailable Unavailable NI STANTON Unavailable [address] + [place] [address] R Unavailable Unavailable Unavailable NI STANTON Unavailable [address] + [place] [address] R Unavailable Unavailable Unavailable NI STANTON Unavailable [address] + [place] [address] R Unavailable Unavailable Unavailable NI STANTON Unavailable [address] + [place] [address] R Unavailable Unavailable Unavailable NI STANTON Unavailable [address] + [place] [address] R Unavailable Unavailable Unavailable NI STANTON Unavailable [address] + [place] [address] R Unavailable Unavailable Unavailable NI STANTON Unavailable [address] + [place] [address] R Unavailable Unavailable Unavailable NI STANTON Unavailable [address] + [place] [address] R Unavailable Unavailable Unavailable NI STANTON Unavailable [address] + [place] [address] R Unavailable Unavailable Unavailable NI STANTON Unavailable [address] + [place] [address] R Unavailable Unavailable Unavailable Care Team Providers Name Role Phone Talampas, Jessica Attending Unavailable Talampas, Jessica Primary Care Unavailable Talampas, Jessica Referring Unavailable Talampas, Jessica Attending Unavailable Talampas, Jessica Primary Care Unavailable Talampas, Jessica Primary Care Unavailable Donnie Luevano D.O. Consulting Unavailable Wesley Serna Admitting Unavailable Paintsil, [place] Attending Unavailable Talib Sanchez Consulting Unavailable Wesley Gerardo Consulting Unavailable Talampas, Jessica Attending Unavailable Talampas, Jessica Referring Unavailable Talampas, Jessica Primary Care Unavailable Wesley Serna Attending Unavailable Talampas, Jessica Primary Care Unavailable Donnie Luevano D.O. Consulting Unavailable Wesley Serna Admitting Unavailable Rafa Breaux Attending Unavailable Talampas, Jessica Primary Care Unavailable Donnie Luevano D.O. Consulting Unavailable Rafa Breaux Consulting Unavailable Wesley Serna Admitting Unavailable Donnie Luevano D.O. Attending Unavailable Talampas, Jessica Primary Care Unavailable Donnie Luevano D.O. Consulting Unavailable Talib Sanchez Consulting Unavailable Rafa Breaux Consulting Unavailable Wesley Serna Admitting Unavailable Rafa Breaux Attending Unavailable Talampas, Jessica Primary Care Unavailable Donnie Luevano D.O. Consulting Unavailable Talib Sanchez Consulting Unavailable Rafa Breaux Consulting Unavailable Wesley Serna Admitting Unavailable Donnie Luevano D.O. Attending Unavailable Talampas, Jessica Primary Care Unavailable Donnie Luevano D.O. Consulting Unavailable Talib Sanchez Consulting Unavailable Wesley Gerardo Consulting Unavailable Rafa Breaux Consulting Unavailable Wesley Serna Admitting Unavailable Sixto Beltran Attending Unavailable Talampas, Jessica Primary Care Unavailable Donnie Luevano D.O. Consulting Unavailable Talib Sanchez Consulting Unavailable Wesley Gerardo Consulting Unavailable Rafa Breaux Consulting Unavailable Wesley Serna Admitting Unavailable Sixto Beltran Attending Unavailable Talampas, Jessica Primary Care Unavailable Donnie Luevano D.O. Consulting Unavailable Talib Sanchez Consulting Unavailable Akin, Wesley Consulting Unavailable Rafa Breaux Consulting Unavailable Kareem, Wesley Admitting Unavailable Donnie Luevano D.O. Attending Unavailable Talampas, Jessica Primary Care Unavailable Donnie Luevano D.O. Consulting Unavailable Talib Sanchez Consulting Unavailable Akin, Wesley Consulting Unavailable Rafa Breaux Consulting Unavailable Kareem, Wesley Admitting Unavailable Sixto Beltran Attending Unavailable Talampas, Jessica Primary Care Unavailable Donnie Luevano D.O. Consulting Unavailable Talib Sanchez Consulting Unavailable Akin, Wesley Consulting Unavailable Saeid, Rafa Consulting Unavailable Kareem, Wesley Admitting Unavailable Rafa Breaux Attending Unavailable Talampas, Jessica Primary Care Unavailable Donnie Luevano D.O. Consulting Unavailable Talib Sanchez Consulting Unavailable Akin, Wesley Consulting Unavailable Rafa Breaux Consulting Unavailable Kareem, Wesley Admitting Unavailable Leia Pope NP-C Attending Unavailable Talampas, Jessica Primary Care Unavailable Donnie Luevano D.O. Consulting Unavailable Talib Sanchez Consulting Unavailable Dennisisparebeca, Wesley Consulting Unavailable Rafa Breaux Consulting Unavailable Kareem, Wesley Admitting Unavailable Donnie Luevano D.O. Attending Unavailable Talampas, Jessica Primary Care Unavailable Donnie Luevano D.O. Consulting Unavailable Talib Sanchez Consulting Unavailable Dennisisparebeca, Wesley Consulting Unavailable Rafa Breaux Consulting Unavailable Kareem, Wesley Admitting Unavailable Rafa Breaux Attending Unavailable Talampas, Jessica Primary Care Unavailable Donnie Luevano D.O. Consulting Unavailable Talib Sanchez Consulting Unavailable Bienvenidoparebeca, Wesley Consulting Unavailable Rafa Breaux Consulting Unavailable Kareem, Wesley Admitting Unavailable Rafa Breaux Attending Unavailable Talampas, Jessica Primary Care Unavailable Donnie Luevano D.O. Consulting Unavailable Talib Sanchez Consulting Unavailable Akin, Wesley Consulting Unavailable Rafa Breaux Consulting Unavailable Kareem, Wesley Admitting Unavailable Paintsil, [place] Attending Unavailable Talampas, Jessica Primary Care Unavailable Donnie Luevano D.O. Consulting Unavailable Talib Sanchez Consulting Unavailable Moodisparebeca, Wesley Consulting Unavailable Paintsil, [place] Consulting Unavailable Kareem, Wesley Admitting Unavailable [place], [place] Attending Unavailable Talampas, Jessica Primary Care Unavailable Donnie Luevano D.O. Consulting Unavailable Talib Sanchez Consulting Unavailable Moodispaw, Wesley Consulting Unavailable Paintsil, [place] Consulting Unavailable Wesley Serna Admitting Unavailable Paintsil, [place] Attending Unavailable Talampas, Jessica Primary Care Unavailable Donnie Luevano D.O. Consulting Unavailable Talib Sanchez Consulting Unavailable Moodispaw, Wesley Consulting Unavailable Paintsil, [place] Consulting Unavailable Sixto [place] Attending Unavailable Danilo Holt Attending Unavailable [place], [place] Referring Unavailable RoofPalomo Attending Unavailable Talampas, Jessica Referring Unavailable Lexi Cardona Attending Unavailable Kelsey Aden Attending Unavailable Roof, Palomo Sam Attending Unavailable Talampas, Jessica Referring Unavailable Talampas, Jessica Primary Care Unavailable Aman Ferguson Attending Unavailable Talampas, Jessica Attending Unavailable Talampas, Jessica Primary Care Unavailable Talampas, Jessica Referring Unavailable Talampas, Jessica Attending Unavailable Talampas, Jessica Referring Unavailable Talampas, Jessica Primary Care Unavailable TALAMPAS, JESSICA D Referring Unavailable TALAMPAS, JESSICA D Referring Unavailable TALAMPAS, JESSICA D Referring Unavailable TALAMPAS, JESSICA D Referring Unavailable TALAMPAS, JESSICA D Referring Unavailable TALAMPAS, JESSICA D Referring Unavailable TALAMPAS, JESSICA D Attending Unavailable SPEAR, JEANIE (VARNISHING MACHINE OPERATOR) Referring Unavailable TALAMPAS, JESSICA D Referring Unavailable SPEAR, JEANIE (VARNISHING MACHINE OPERATOR) Attending Unavailable FRAN BARBER Attending Unavailable SPEAR, JEANIE (VARNISHING MACHINE OPERATOR) Referring Unavailable SPEAR, JEANIE (VARNISHING MACHINE OPERATOR) Attending Unavailable TALAMPAS, JESSICA D Referring Unavailable TALAMPAS, JESSICA D Referring Unavailable SPEAR, JEANIE (VARNISHING MACHINE OPERATOR) Referring Unavailable TALAMPAS, JESSICA D Referring Unavailable TALAMPAS, JESSICA D Attending Unavailable TALAMPAS, JESSICA D Referring Unavailable TALAMPAS, JESSICA D Referring Unavailable TALAMPAS, JESSICA D Referring Unavailable TALAMPAS, JESSICA D Referring Unavailable TALAMPAS, JESSICA D Referring Unavailable TALAMPAS, JESSICA D Referring Unavailable TALAMPAS, JESSICA D Referring Unavailable TALAMPAS, JESSICA D Referring Unavailable TALAMPAS, JESSICA D Referring Unavailable TALAMPAS, JESSICA D Referring Unavailable TALAMPAS, JESSICA D Referring Unavailable TALAMPAS, JESSICA D Attending Unavailable TALAMPAS, JESSICA D Referring Unavailable TALAMPAS, JESSICA D Referring Unavailable TALAMPAS, JESSICA D Referring Unavailable TALAMPAS, JESSICA D Referring Unavailable TALAMPAS, JESSICA D Referring Unavailable TALAMPAS, JESSICA D Referring Unavailable TALAMPAS, JESSICA D Referring Unavailable TALAMPAS, JESSICA D Referring Unavailable TALAMPAS, JESSICA D Referring Unavailable TALAMPAS, JESSICA D Referring Unavailable TALAMPAS, JESSICA D Referring Unavailable TALAMPAS, JESSICA D Referring Unavailable TALAMPAS, JESSICA D Referring Unavailable TALAMPAS, JESSICA D Attending Unavailable TALAMPAS, JESSICA D Referring Unavailable APOSTOLIS, TONEY A Admitting Unavailable APOSTOLIS, TONEY A Attending Unavailable TALAMPAS, JESSICA Primary Care Unavailable CHAPIN CHAVEZ, JD EDWARDS DEVELOPER Admitting Unavailable CHAPIN CHAVEZ JD EDWARDS DEVELOPER Attending Unavailable TALAMPAS, JESSICA Primary Care Unavailable APOSTOLIS, TONEY Attending Unavailable PROBLEMS PROBLEMS DATE TYPE CONDITION / CODE ATTENDING STATUS SOURCE Unknown E11.9 - Type 2 Talampas, Jessica Active [place] 8 diabetes mellitus Community without complications Hospital / E11.9(ICD-10) Repository Unknown Z79.899 - Other long Talampas, Jessica Active [place] 8 term (current) drug Community therapy / Hospital Z79.899(ICD-10) Repository Active Other mcfp NA Active [place] 8 (current) drug therapy Clinic Main / Z79.899(ICD-10) [place] Repository Active Encounter for NA Active [facility] 8 screening mammogram Clinic Main for malignant neoplasm [place] of breast / Repository Z12.31(ICD-10) Unknown Z95.2 - Presence of Talampas, 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 Community / Z95.2(ICD-10) Hospital Repository Active Presence of prosthetic NA Active [facility] [facility] heart valve / Clinic Main Z95.2(ICD-10) [place] Repository Unknown S73.109A - Unspecified Marty Active [place] 8 sprain of unspecified [place] Community hip, initial encounter Hospital / S73.109A(ICD-10) Repository Active Type 2 diabetes NA Active [place] 8 mellitus without Clinic Main complications / [place] E11.9(ICD-10) Repository Active COMPLETE UTEROVAGINAL APOSTOLIS, Active [facility] 8 PROLAPSE / [facility] Hospital N81.3(ICD-10) Repository Principle COMPLETE UTEROVAGINAL APOSTOLIS, Active [facility] 8 Diagnosis PROLAPSE / [facility] N81.3(ICD-10) Repository Secondary 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, Active [facility] 8 Diagnosis PROLAPSE / [facility] Hospital N81.89(ICD-10) Repository Secondary STRESS INCONTINENCE APOSTOLIS, Active [facility] 8 Diagnosis FEMALE MALE / [facility] N39.3(ICD-10) Repository Secondary ACUTE INFLAMMATORY APOSTOLIS, Active [facility] 8 Diagnosis DISEASE UTERUS / [facility] N71.0(ICD-10) Repository Secondary CHRONIC INFLAMMATORY APOSTOLIS, Active [facility] 8 Diagnosis DISEASE UTERUS / [facility] N71.1(ICD-10) Repository Secondary ESSENTIAL PRIMARY APOSTOLIS, Active [facility] 8 Diagnosis HYPERTENSION / [facility] I10(ICD-10) Repository Secondary TYPE 2 DM WITHOUT APOSTOLIS, Active [facility] 8 Diagnosis COMPLICATIONS / [facility] E11.9(ICD-10) Repository Secondary UNSPECIFIED ATRIAL APOSTOLIS, Active [facility] 8 Diagnosis FIBRILLATION / [facility] I48.91(ICD-10) Repository Secondary HYPERLIPIDEMIA APOSTOLIS, Active [facility] 8 Diagnosis UNSPECIFIED / [facility] E78.5(ICD-10) Repository Secondary UNSPECIFIED APOSTOLIS, Active [facility] 8 Diagnosis OSTEOARTHRITIS UNS [facility] Hospital SITE / M19.90(ICD-10) Repository Secondary PERS HX DZ BLD/BLD-FRM APOSTOLIS, Active [facility] 8 Diagnosis ORG IMMN [facility] / [facility] Hospital Z86.2(ICD-10) Repository Secondary OTH SKILLED NURSING CURRENT APOSTOLIS, Active [facility] 8 Diagnosis DRUG THERAPY / [facility] Z79.899(ICD-10) Repository Secondary SKILLED NURSING CURRNT USE APOSTOLIS, Active [facility] 8 Diagnosis ANTICOAGULANTS / [facility] Z79.01(ICD-10) Repository Secondary LEADING FIREFIGHTER USE ORAL APOSTOLIS, Active [facility] 8 Diagnosis HYPOGLYCEMIC DX / [facility] Z79.84(ICD-10) Repository Secondary PRESENCE OF PROSTHETIC APOSTOLIS, Active [facility] 8 Diagnosis HEART VALVE / [facility] Z95.2(ICD-10) Repository Secondary PERSONAL HISTORY OF APOSTOLIS, Active [facility] 8 Diagnosis NICOTINE DEPEND / [facility] Z87.891(ICD-10) Repository Active ENCOUNTER OTHER SCOTT Active [facility] 8 PREPROCEDURAL EXAM / [facility] Z01.818(ICD-10) Repository Principle ENCOUNTER OTHER SCOTT Active [facility] 8 Diagnosis PREPROCEDURAL EXAM / [facility] Z01.818(ICD-10) Repository Unknown R94.31 - Abnormal Jonathon, Danilo Active [facility] 8 electrocardiogram Community [ECG] [EKG] / Hospital R94.31(ICD-10) Repository Unknown 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 [place] 8 (current) use of Community anticoagulants / Hospital Z79.01(ICD-10) Repository Unknown E11.69 - Type 2 TalampMilla sortoa Active [facility] 8 diabetes mellitus with Community other specified Hospital complication / Repository E11.69(ICD-10) Unknown E78.5 - TalampJessica sorto Active [facility] 8 Hyperlipidemia, Community unspecified / Hospital E78.5(ICD-10) Repository Unknown E11.65 - Type 2 TalampJessica sorto Active [place] 8 diabetes mellitus with Community hyperglycemia / Hospital E11.65(ICD-10) Repository Active Type 2 diabetes NA Active [facility] 5 mellitus with other Clinic Main specified complication [place] / E11.69(ICD-10) Repository Active Hyperlipidemia, NA Active [place] [facility] unspecified / Clinic Main E78.5(ICD-10) [place] Repository Active Essential (primary) NA Active [facility] [facility] hypertension / Clinic Main I10(ICD-10) [place] Repository Active alf (current) NA Active [place] 1 use of anticoagulants Clinic Main / Z79.01(ICD-10) [place] Repository Active Type 2 diabetes NA Active [facility] 8 mellitus with Clinic Main hyperglycemia / [place] E11.65(ICD-10) Repository PROCEDURES PROCEDURES No Procedure Records FoundRESULTS RESULTS PROGRESS Observed: 09/02/2018 Status: COMPLETED Source: [place] 4:[address] [facility] REPOSITORY HNO ID: [id number] Author: Raven Zuniga RN Service: (none) Author Type: (none) Type: Progress Notes Filed: 09/02/2018 4:45 PM Note Text: per written order by dr hardy she agrees with information PROGRESS Observed: 09/02/2018 Status: COMPLETED Source: [place] 12:[address] [facility] REPOSITORY HNO ID: [id number] Author: Raven Zuniga RN Service: (none) Author Type: (none) Type: Progress Notes Filed: 09/02/2018 12:11 PM Note Text: patient had inr completed at [facility] patients inr is 2.7 (patients inr range is 2.5-3.5) patient is currently taking 5mg daily patients last dose change was on 08/26/18 due to a high level of 4.9 (dose at that time was 6mg daily) patient has had no changes in medication except for coumadin and no missed doses and no change in diet Advised patient to continue on the same dose(s) and that they would only be contacted regarding dosage and follow up instructions after review with provider, if a change is needed. Written instructions given and patient verbalized understanding. Presently scheduled in 2 weeks (09/16/18) for follow up INR. PROGRESS Observed: 08/26/2018 Status: COMPLETED Source: [place] 4:[address] [facility] REPOSITORY HNO ID: [id number] Author: Raven Zuniga RN Service: (none) Author Type: (none) Type: Progress Notes Filed: 08/26/2018 4:27 PM Note Text: per written orders by dr hardy pt it to take 5mg PATIENT NOTIFIED OF INFORMATION PROGRESS Observed: 08/26/2018 Status: COMPLETED Source: [place] 11:[address] [facility] REPOSITORY HNO ID: [id number] Author: Raven Zuniga RN Service: (none) Author Type: (none) Type: Progress Notes Filed: 08/26/2018 11:08 AM Note Text: patient had inr completed at [facility] patients inr is 4.9 (patients inr range is 2.5-3.5) patient is currently taking 6mg daily patients last dose change was on 08/12/18 due to a low level of 1.7 (dose at that time was 4mg Sat and 6mg all other days) patient has had no changes in medication and no missed doses and no change in diet Advised patient that they would be contacted regarding medication dose and when to follow up after information is reviewed by provider. After provider review please contact the patient with information and schedule follow up appointment with coumadin clinic. AMARIS - patient has been scheduled for a 1 week follow up inr on 09/02/18 [place] Observed: 08/23/2018 Status: COMPLETED Source: [place] 12:[address] [facility] REPOSITORY Patient Outreach (FAMPST) MACIEL BUCIO ([id number]) 1950 F Date Time Provider Department 08/23/18 [facility] your visit today, we recorded the following information about you: Allergies As of Date: 08/23/2018 Noted Allergy Reaction CALCIUM BLOCKERS [Other] 06/09/2005 2 - Rash FENOFIBRATE 06/11/2015 6 - Diarrhea GEMFIBROZIL 06/11/2015 6 - Diarrhea Date Reviewed: 05/02/2018 Reviewed by: Eloise Liang LPN - Fully Assessed Visit Diagnosis:Medication management [Z79.899] Order(s):ALBUMIN/CREAT RATIO RND UR [SQUACR] Order #: [id number] FUTURE Prescriptions as of 08/23/2018 Sig: WARFARIN 3 MG TABLET Take 2 pills daily except on * ATORVASTATIN 40 MG TABLET Take 1 tablet by mouth once d* METFORMIN ER 750 MG TABLET,EX* Take 3 tablets by mouth daily* GLIPIZIDE 10 MG TABLET Take 1 tablet by mouth twice * ATENOLOL 50 MG TABLET Take 1 tablet by mouth once d* GEMFIBROZIL 600 MG TABLET Take 1 tablet by mouth twice * MULTIVITAMIN ORAL Take by mouth. X LISINOPRIL 10 MG TABLET Take 1 tablet by mouth once d* DICYCLOMINE 10 MG CAPSULE TAKE ONE CAPSULE BY MOUTH BEF* Patient not taking: Reported on 05/02/2018 VITAMIN D-3 ORAL Take by mouth once daily. LANCETS Test blood sugar(s) once gloria* BLOOD SUGAR DIAGNOSTIC STRIPS Test blood sugar(s) once gloria* AMOXICILLIN 500 MG TABLET TAKE 4 PILLS 1 HOUR PRIOR TO * COMPOUNDED PRESCRIPTION Lab order: Standing order fo* MECLIZINE 25 MG TABLET Take 1 tablet by mouth three * CONTOUR TEST STRIPS Test blood sugars 3-4 per day* COMPOUNDED PRESCRIPTION [employer] Glucose meter VITAMIN C 500 MG TABLET take one daily Problem List As Of Date 08/23/2018 Noted Resolved PMH - PAST MEDICAL HISTORY OF 07/05/2006 More... Diabetes mellitus type 2, controlled, without c* More... OSTEOARTHROS NOS-OTHER SITE [M19.90] More... osteopenia [M89.9, M94.9] PALPITATIONS [R00.2] ACUTE GASTRITIS W/O HEMORRHAGE [K29.00] PURE HYPERGLYCERIDEMIA [E78.1] 07/05/2006 Essential hypertension [I10] JOINT PAIN-PELVIS [M25.559] INVALID FOR*07/05/2006 SACROILIITIS NEC [M46.1] INVALID FOR* HERNIA INGUINAL,UNILATERAL [K40.90] INVALID FOR*07/05/2006 Hyperlipidemia associated with type 2 diabetes *INVALID FOR* ESOPHAGEAL REFLUX [K21.9] BENIGN PARXYSMAL VERTIGO [H81.10] INVALID FOR* S/P MVR (mitral valve replacement) [Z95.2] INVALID FOR* Anticoagulation monitoring, INR range 2.5-3.5 [*INVALID FOR* Fracture of metatarsal bone of left foot [S92.3*INVALID FOR*06/19/2016 Encounter Status:Closed by REJI PRODUSER on 09/07/18 PROGRESS Observed: 08/12/2018 Status: COMPLETED Source: [place] 4:43 PM [facility] REPOSITORY HNO ID: [id number] Author: Raven Zuniga RN Service: (none) Author Type: (none) Type: Progress Notes Filed: 08/12/2018 4:43 PM Note Text: per written order by dr hardy pt is to take 8mg for today only and then resume 6mg daily PATIENT NOTIFIED OF INFORMATION PROGRESS Observed: 08/12/2018 Status: COMPLETED Source: [place] 1:[address] [facility] REPOSITORY HNO ID: [id number] Author: Raven Zuniga RN Service: (none) Author Type: (none) Type: Progress Notes Filed: 08/12/2018 1:18 PM Note Text: patient had inr completed at [facility] patients inr is 1.7 (patients inr range is 2.5-3.5) patient is currently taking 4mg Sat and 6mg all other days patients last dose change was on 08/05/18 due to a high level of 4.6 (dose at that time was 6mg daily) patient has had no changes in medication and no missed doses and no change in diet Advised patient that they would be contacted regarding medication dose and when to follow up after information is reviewed by provider. After provider review please contact the patient with information and schedule follow up appointment with coumadin clinic. FYI- patient has been scheduled for for a 2 week follow up inr on 08/26/18 PROGRESS Observed: 08/05/2018 Status: COMPLETED Source: [place] 4:[address] [facility] REPOSITORY HNO ID: [id number] Author: Raven Zuniga RN Service: (none) Author Type: (none) Type: Progress Notes Filed: 08/05/2018 4:54 PM Note Text: per written order by dr hardy pt is to take 4mg Sat and 6mg all other days and recheck as schedule PATIENT NOTIFIED OF INFORMATION PROGRESS Observed: 08/05/2018 Status: COMPLETED Source: [place] 11:[address] [facility] REPOSITORY HNO ID: [id number] Author: Raven Zuniga RN Service: (none) Author Type: (none) Type: Progress Notes Filed: 08/05/2018 11:18 AM Note Text: patient had inr completed at [facility] patients inr is 4.6 (patients inr range is 2.5-3.5) patient is currently taking 6mg daily patients last dose change was on 06/16/18 due to a low level of 2.0 (dose at that time was 4mg Tues,Thur and 6mg all other days) patient has had no changes in medication and no missed doses and no change in diet Advised patient that they would be contacted regarding medication dose and when to follow up after information is reviewed by provider. After provider review please contact the patient with information and schedule follow up appointment with coumadin clinic. FYI - patient has been scheduled for a 1 week follow up inr on 08/12/18 CBC-COMPLETE BLOOD CNT Collected: 08/01/2018 Status: F Source: [place] NO DIFF 12:06 PM [facility] [place] CODE TESTS RESULT OUT OF RANGE REFERENCE UNITS LAB L100.1000 4.4-11.0 K/mm3 Normal WBC 4.6 LAB L100.1200 4.2-5.4 M/mm3 Normal RBC 4.64 LAB L100.1300 12.0-15.0 g/dl Normal HGB 13.9 LAB L100.1400 37-47 % Normal HCT 42.4 LAB L100.1500 81-99 fL Normal MCV 91.4 LAB L100.1600 27.0-32.0 pg Normal MCH 30.0 LAB L100.1700 32-36 g/gl Normal MCHC 32.8 LAB L100.1810 11.6-14.6 % High RDW CV 14.9 LAB L100.1820 35.1-43.9 fl High RDW SD 48.5 LAB L100.1900 150-450 K/mm3 Normal PLT 355 LAB L100.2000 6.2-12.0 fl Normal MPV 11.1 Performed By: #### L100.0500 #### [facility] [place], [address] COMPREHENSIVE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 Low MCH 26.8 LAB L100.1700 32-36 g/gl Low MCHC 29.4 LAB L100.1810 11.6-14.6 % High RDW CV 16.3 LAB L100.1820 35.1-43.9 fl High RDW SD 54.2 LAB L100.1900 150-450 K/mm3 Normal PLT 355 LAB L100.2000 6.2-12.0 fl Normal MPV 11.2 Performed By: #### L100.0500 #### [facility] [address] [place], [place], [address] COMPREHENSIVE METABOLIC Collected: 04/21/2018 Status: F Source: [place] 8:43 AM [facility] [place] TYPE CODE TESTS RESULT OUT OF RANGE REFERENCE UNITS LAB L501.0100 74-106 mg/dL High GLU 177 Result Comment: Fasting Glucose result greater than or equal to 126 mg/dL suggests DIABETES MELLITUS per A.D.A. criteria. Please note revised GLUCOSE reference range effective 2017. LAB L501.1000 7-18 mg/dL High BUN 21 LAB L501.1100 0.55-1.02 mg/dL Normal CREAT,SERUM 0.64 Result Comment: The validity of the calculated GFR AND GFRAA in patients over 70 years has not been determined. Clinical correlation is essential. LAB L501.1110 >60 mL/min Normal EST GFR 98 Result Comment: Non- GFR Calc LAB L501.1115 >60 mL/min Normal EST GFR - AA 118 Result Comment: GFR Calc LAB L501.1300 10-20 RATIO High BUN/CRE 32.9 LAB L501.1500 6.4-8.2 g/dL T Normal PROT 7.8 LAB L501.1800 3.2-5.0 g/dL Normal ALB 4.0 LAB L501.1950 2.2-4.2 g/dL Normal GLOB 3.8 LAB L501.2000 0.9-2.4 RATIO Normal A/G 1.1 LAB L501.2200 8.5-10.1 mg/dL CA Normal 10.0 LAB L501.4100 15-37 U/L Normal AST 25 LAB L501.4305 45-117 U/L Normal ALK P 100 LAB L501.4405 13-56 U/L Normal ALT 26 LAB L501.4600 0.20-1.00 mg/dL T Normal BILI 0.40 LAB L501.5300 136-145 mmol/L NA Normal 138 LAB L501.5600 3.5-5.1 mmol/L K Normal 4.4 LAB L501.5900 98-107 mmol/L CL Normal 104 LAB L501.6100 21.0-32.0 mmol/L Normal CO2 24.0 LAB L501.6200 5-15 Normal GAP 10 Performed By: #### L500.4050, L500.4100 #### [facility] [address] [place], [place], [id number] LIPID PROFILE Collected: 04/21/2018 Status: F Source: [place] 8:43 AM [facility] [place] TYPE CODE TESTS RESULT OUT OF RANGE REFERENCE UNITS LAB L501.4900 200 mg/dL High CHOL 217 Result Comment: <200 mg/dL Desirable 200-240 mg/dL Borderline >240 mg/dL High Risk LAB L501.5000 mg/dL High TRIG 318 Result Comment: The drugs N-Acetylcysteine and Metamizole may falsely depress this assay. Serum Triglycerides Reference Interval Normal <150 mg/dL Borderline high 150 - 199 mg/dL High 200 - 499 mg/dL Very High > or = 500 mg/dL LAB L501.6400 mg/dL Normal HDL 46 Result Comment: The drugs N-Acetylcysteine and Metamizole may falsely depress this assay. Reference Range HDL <40 mg/dL Low HDL Cholesterol HDL >or= 60 mg/dL High HDL Cholesterol LAB L501.6500 0-130 mg/dL Normal LDL 107 LAB L501.6600 5-40 mg/dL High VLDL 64 Performed By: #### L500.4050, L500.4100 #### [facility] [address] [place], [address] HEMOGLOBIN A1C Collected: 04/21/2018 Status: F Source: [place] 8:43 AM [facility] [place] TYPE CODE TESTS RESULT OUT OF RANGE REFERENCE UNITS LAB L501.9985 4.2-6.3 % High HGB A1C 7.2 Performed By: #### L501.9985 #### [facility] [address] [place], [address] PROGRESS Observed: 04/07/2018 Status: COMPLETED Source: [place] 9:[address] [facility] REPOSITORY HNO ID: [id number] Author: Raven Zuniga RN Service: (none) Author Type: (none) Type: Progress Notes Filed: 04/07/2018 9:26 AM Note Text: patient had inr completed at [facility] patients inr is 1.6 (patients inr range is 2.5-3.5) patient is currently taking 6mg Mon,Wed,Fri and 3mg all other days patients last dose change was on 03/04/18 due to a low level of 1.6 (dose at that time was 6mg Tues,Wed,Fri and 3mg all other days) patient has had no changes in medication and no missed doses and no change in diet Advised patient that they would be contacted regarding medication dose and when to follow up after information is reviewed by provider. After provider review please contact the patient with information and schedule follow up appointment with coumadin clinic. FYI- patient has been scheduled for a 2 week follow up inr on 04/21/18 PROGRESS Observed: 03/31/2018 Status: COMPLETED Source: [place] 4:[address] [facility] REPOSITORY HNO ID: [id number] Author: Raven Zuniga RN Service: (none) Author Type: (none) Type: Progress Notes Filed: 03/31/2018 4:59 PM Note Text: per written order by dr orellana patient is to take 3mg today fri sat and then resume 6mg mon,wed,fri and 3mg all other days PATIENT NOTIFIED OF INFORMATION PROGRESS Observed: 03/31/2018 Status: COMPLETED Source: [place] 11:[address] [facility] REPOSITORY HNO ID: [id number] Author: Raven Zuniga RN Service: (none) Author Type: (none) Type: Progress Notes Filed: 03/31/2018 12:01 PM Note Text: patient had inr completed at [facility] patients inr is 4.9 (patient inr range is 2.5-3.5) patient is currently taking 6mg Mon,Wed,Fri and 3mg all other days patients last dose change was on 03/04/18 due to a low level of 1.6 (dose at that time was 6mg Tues,Wed,Fri and 3mg all other days) patient has had no changes in medication and no missed doses and no change in diet Advised patient that they would be contacted regarding medication dose and when to follow up after information is reviewed by provider. After provider review please contact the patient with information and schedule follow up appointment with coumadin clinic. SCOTTI - pt is scheduled for a 1 week follow up inr on 04/07/18 PROGRESS Observed: 03/30/2018 Status: COMPLETED Source: [place] 11:[address] [facility] REPOSITORY HNO ID: [id number] Author: Mariana Collazo Cma Service: (none) Author Type: (none) Type: Progress Notes Filed: 03/30/2018 11:09 AM Note Text: Letters mailed to patient. PROGRESS Observed: 03/30/2018 Status: COMPLETED Source: [place] 11:[address] [facility] REPOSITORY HNO ID: [id number] Author: Mariana Collazo Cma Service: (none) Author Type: (none) Type: Progress Notes Filed: 03/30/2018 11:09 AM Note Text: Maciel has an upcoming appointment 05/02. She'll be due for labs prior (already ordered). I will send appointment/lab reminder with DM retinal reminder and release form. Appointment notes updated. Health Maintenance Due: BLOOD PRESSURE CONTROLLED due on 01/22/1966 - will recheck at upcoming appt. DILATED RETINAL EXAM due on 04/22/2017 - sending letter DIABETIC FOOT EXAM due on 01/06/2018 INFLUENZA(1) due on 04/16/2018 CNPTOUTREACH Observed: 03/30/2018 Status: COMPLETED Source: [place] 12:[address] [facility] REPOSITORY Patient Outreach (INT[facility]) FORTUNATOMACIEL M ([id number]) 1950 F Date Time Provider Department 03/30/18 MARIANA COLLAZO (LIZBETH) IN[facility] During your visit today, we recorded the following information about you: Mariana Collazo Cma 03/30/2018 11:09 AM Signed Maciel has an upcoming appointment 05/02. She'll be due for labs prior (already ordered). I will send appointment/lab reminder with DM retinal reminder and release form. Appointment notes updated. Health Maintenance Due: BLOOD PRESSURE CONTROLLED due on 01/22/1966 - will recheck at upcoming appt. DILATED RETINAL EXAM due on 04/22/2017 - sending letter DIABETIC FOOT EXAM due on 01/06/2018 INFLUENZA(1) due on 04/16/2018 Mariana Collazo [facility] 03/30/2018 11:09 AM Signed Letters mailed to patient. Allergies As of Date: 03/30/2018 Noted Allergy Reaction CALCIUM BLOCKERS [Other] 06/09/2005 2 - Rash FENOFIBRATE 06/11/2015 6 - Diarrhea GEMFIBROZIL 06/11/2015 6 - Diarrhea Date Reviewed: 02/14/2018 Reviewed by: Raven Zuniga RN - Fully Assessed Reason for Visit: PHMA/Care Gap Outreach [[id number]] Prescriptions as of 03/30/2018 Sig: WARFARIN 3 MG TABLET Take 2 pills daily except on * ATORVASTATIN 40 MG TABLET Take 1 tablet by mouth once d* METFORMIN ER 750 MG TABLET,EX* Take 3 tablets by mouth daily* GLIPIZIDE 10 MG TABLET Take 1 tablet by mouth twice * ATENOLOL 50 MG TABLET Take 1 tablet by mouth once d* GEMFIBROZIL 600 MG TABLET Take 1 tablet by mouth twice * MULTIVITAMIN ORAL Take by mouth. LISINOPRIL 10 MG TABLET Take 1 tablet by mouth once d* DICYCLOMINE 10 MG CAPSULE TAKE ONE CAPSULE BY MOUTH BEF* VITAMIN D-3 ORAL Take by mouth once daily. LANCETS Test blood sugar(s) once gloria* BLOOD SUGAR DIAGNOSTIC STRIPS Test blood sugar(s) once gloria* WARFARIN 4 MG TABLET TAKE 6 MG ON WEDNESDAY AND * AMOXICILLIN 500 MG TABLET TAKE 4 PILLS 1 HOUR PRIOR TO * WARFARIN 4 MG TABLET Take 4mg daily or as directed COMPOUNDED PRESCRIPTION Lab order: Standing order fo* MECLIZINE 25 MG TABLET Take 1 tablet by mouth three * CONTOUR TEST STRIPS Test blood sugars 3-4 per day* COMPOUNDED PRESCRIPTION [employer] Glucose meter VITAMIN C 500 MG TABLET take one daily Problem List As Of Date 03/30/2018 Noted Resolved PMH - PAST MEDICAL HISTORY OF 07/05/2006 More... Diabetes mellitus type 2, controlled, without c* More... OSTEOARTHROS NOS-OTHER SITE [M19.90] More... osteopenia [M89.9, M94.9] PALPITATIONS [R00.2] ACUTE GASTRITIS W/O HEMORRHAGE [K29.00] PURE HYPERGLYCERIDEMIA [E78.1] 07/05/2006 Essential hypertension [I10] JOINT PAIN-PELVIS [M25.559] INVALID FOR*07/05/2006 SACROILIITIS NEC [M46.1] INVALID FOR* HERNIA INGUINAL,UNILATERAL [K40.90] INVALID FOR*07/05/2006 Hyperlipidemia associated with type 2 diabetes *INVALID FOR* ESOPHAGEAL REFLUX [K21.9] BENIGN PARXYSMAL VERTIGO [H81.10] INVALID FOR* S/P MVR (mitral valve replacement) [Z95.2] INVALID FOR* Anticoagulation monitoring, INR range 2.5-3.5 [*INVALID FOR* Fracture of metatarsal bone of left foot [S92.3*INVALID FOR*06/19/2016 Letter Text [facility] Jessica Atwood MD [address], [place] [address] Dear Maciel Neil Bucio Your health care is very important to us. Our records indicate that you may be due for a diabetic eye exam. If you have had a diabetic eye exam within the last year, please have your records sent to us so that we may update your medical records. There is a medical records of release of information included in this letter. Please take the release to your eye doctor for future appointments to have your records forwarded to us. Important facts about diabetic eye exams Diabetic retinal exams should be done yearly for all patients with a diagnosis of diabetes. Risks such as diabetic retinopathy can be reduced with blood glucose control and early detection of potential problems. Diabetic retinopathy is damage to the small blood vessels in the retina that can lead to blindness Thank you, Jessica Atwood MD Letter [facility] [address] [id number] Office: [phone] Jessica Atwood MD REQUEST FOR EYE EXAM FINDINGS September 04, 2016 Dear eye career placement services counselor, Thank you for coordinating eye care for our mutual patient, Maciel Bucio (1950). Please fax this letter back to me with the most appropriate response selected below. Please allow the patient's signature to serve as permission to share your findings. Sincerely, Jessica Atwood MD Patient Signature Date Date of eye exam: Findings Both Eyes Right Left No Retinopathy Detected Non Proliferative Retinopathy Mild Moderate Severe Proliferative Retinopathy Macular Edema Further testing and/or treatment indicated Comments: Patient is to return: Encounter Status:Closed by AMRIANA COLLAZO CMA on 03/30/18 PROGRESS Observed: 03/15/2018 Status: COMPLETED Source: [place] 4:43 PM [facility] REPOSITORY HNO ID: [id number] Author: Raven Zuniga RN Service: (none) Author Type: (none) Type: Progress Notes Filed: 03/15/2018 4:44 PM Note Text: per written order by dr hardy patient is to take 6mg times 3 days and then start 3mg mon,Fri and 6mg all other days PATIENT NOTIFIED OF INFORMATION PROGRESS Observed: 03/15/2018 Status: COMPLETED Source: [place] 1:[address] [facility] REPOSITORY HNO ID: [id number] Author: Raven Zuniga RN Service: (none) Author Type: (none) Type: Progress Notes Filed: 03/15/2018 1:05 PM Note Text: patient had inr completed at [facility] patients inr is 1.5 (patients inr range is 2.5-3.5) patient is currently taking 6mg Mon,Wed,Fri and 3mg all other days patients last dose change was on 03/04/18 due to a low level of 1.6 (dose at that time was 6mg Tues,Wed,Fri and 3mg all other days) patient has had no changes in medication except for coumadin and no missed doses and no change in diet Advised patient that they would be contacted regarding medication dose and when to follow up after information is reviewed by provider. After provider review please contact the patient with information and schedule follow up appointment with coumadin clinic. FYI - patient has been scheduled for a 2 week follow up inr on 03/29/18 PROGRESS Observed: 03/04/2018 Status: COMPLETED Source: [place] 3:[address] [facility] REPOSITORY HNO ID: [id number] Author: Raven Zuniga RN Service: (none) Author Type: (none) Type: Progress Notes Filed: 03/04/2018 3:41 PM Note Text: per written order by dr hardy pt is to take 6mg for the next 3 doses and then on Mon start a cycle of 6mg Tues,Fri and 3mg all other days patient notified via detailed message and to contact the office with any problems or questions PROGRESS Observed: 03/04/2018 Status: COMPLETED Source: [place] 11:[address] [facility] REPOSITORY HNO ID: [id number] Author: Raven Zuniga RN Service: (none) Author Type: (none) Type: Progress Notes Filed: 03/04/2018 11:31 AM Note Text: patient had inr completed at [facility] patients inr is 1.6 (patients inr range is 2.5-3.5) patient is currently taking 6mg ,Wed,Wed and 3mg all other days patients last dose change was on 02/28/18 due to a low level of 1.0 (dose at that time was 3mg daily) patient has had no changes in medication and no missed doses and no change in diet Advised patient that they would be contacted regarding medication dose and when to follow up after information is reviewed by provider. After provider review please contact the patient with information and schedule follow up appointment with coumadin clinic. FYI - patient has been scheduled for an inr follow up inr 03/15/18 PROGRESS Observed: 03/01/2018 Status: COMPLETED Source: [place] 8:[address] [facility] REPOSITORY HNO ID: [id number] Author: Antonieta ParsonRn) Richard, RN Service: (none) Author Type: Registered Nurse Type: Progress Notes Filed: 03/01/2018 8:38 AM Note Text: Pt returned call message given and verbalized understand. Transferred to PSR to make appt. PROGRESS Observed: 03/01/2018 Status: COMPLETED Source: [place] 8:[address] [facility] REPOSITORY HNO ID: [id number] Author: Antonieta (Rn) Richard, RN Service: (none) Author Type: Registered Nurse Type: Progress Notes Filed: 03/01/2018 8:38 AM Note Text: This note was created using Pictela. Subjective Maciel Bucio is a 68 year old female. Review of Systems Objective There were no vitals taken for this visit. Physical Exam Assessment and Plan PROGRESS Observed: 03/01/2018 Status: COMPLETED Source: [place] 7:[address] [facility] REPOSITORY HNO ID: [id number] Author: Jeanie Spear (Cns) Service: (none) Author Type: Nurse Specialist Type: Progress Notes Filed: 03/01/2018 8:38 AM Note Text: This note was created using Pictela. Subjective Maciel Bucio is a 68 year old female. Review of Systems Objective There were no vitals taken for this visit. Physical Exam Assessment and Plan Last INR 2.0 on 02/14/2018 If no missed doses, Recommend Coumadin 6 mg Wednesday and Wednesday 3 mg on , 6 mg on Wednesday, 3mg Sat and Sun Then take 6 mg Wednesday, 3 mg all other days Check INR on Wednesday or Wednesday KOMALMARENGABO Observed: 03/01/2018 Status: COMPLETED Source: [place] 12:[address] [facility] REPOSITORY Patient Outreach ([facility]) MACIEL BUCIO ([id number]) 1950 F Date Time Provider Department 03/01/18 JESSICA HARDY [facility] During your visit today, we recorded the following information about you: Allergies As of Date: 03/01/2018 Noted Allergy Reaction CALCIUM BLOCKERS [Other] 06/09/2005 2 - Rash FENOFIBRATE 06/11/2015 6 - Diarrhea GEMFIBROZIL 06/11/2015 6 - Diarrhea Date Reviewed: 02/14/2018 Reviewed by: Raven Zuniga RN - Fully Assessed Reason for Visit: Diabetic Eye Exam [3566] Cmt: sending request for findings of Diabetic eye exam Prescriptions as of 03/01/2018 Sig: ATORVASTATIN 40 MG TABLET Take 1 tablet by mouth once d* METFORMIN ER 750 MG TABLET,EX* Take 3 tablets by mouth daily* GLIPIZIDE 10 MG TABLET Take 1 tablet by mouth twice * ATENOLOL 50 MG TABLET Take 1 tablet by mouth once d* GEMFIBROZIL 600 MG TABLET Take 1 tablet by mouth twice * MULTIVITAMIN ORAL Take by mouth. WARFARIN 5 MG TABLET take one tablet daily or as d* LISINOPRIL 10 MG TABLET Take 1 tablet by mouth once d* DICYCLOMINE 10 MG CAPSULE TAKE ONE CAPSULE BY MOUTH BEF* WARFARIN 6 MG TABLET Take 6mg and 4mg all * VITAMIN D-3 ORAL Take by mouth once daily. LANCETS Test blood sugar(s) once gloria* BLOOD SUGAR DIAGNOSTIC STRIPS Test blood sugar(s) once gloria* WARFARIN 4 MG TABLET TAKE 6 MG ON WEDNESDAY AND * AMOXICILLIN 500 MG TABLET TAKE 4 PILLS 1 HOUR PRIOR TO * WARFARIN 4 MG TABLET Take 4mg daily or as directed COMPOUNDED PRESCRIPTION Lab order: Standing order fo* MECLIZINE 25 MG TABLET Take 1 tablet by mouth three * CONTOUR TEST STRIPS Test blood sugars 3-4 per day* COMPOUNDED PRESCRIPTION [employer] Glucose meter VITAMIN C 500 MG TABLET take one daily Problem List As Of Date 03/01/2018 Noted Resolved PMH - PAST MEDICAL HISTORY OF 07/05/2006 More... Diabetes mellitus type 2, controlled, without c* More... OSTEOARTHROS NOS-OTHER SITE [M19.90] More... osteopenia [M89.9, M94.9] PALPITATIONS [R00.2] ACUTE GASTRITIS W/O HEMORRHAGE [K29.00] PURE HYPERGLYCERIDEMIA [E78.1] 07/05/2006 Essential hypertension [I10] JOINT PAIN-PELVIS [M25.559] INVALID FOR*07/05/2006 SACROILIITIS NEC [M46.1] INVALID FOR* HERNIA INGUINAL,UNILATERAL [K40.90] INVALID FOR*07/05/2006 Hyperlipidemia associated with type 2 diabetes *INVALID FOR* ESOPHAGEAL REFLUX [K21.9] BENIGN PARXYSMAL VERTIGO [H81.10] INVALID FOR* S/P MVR (mitral valve replacement) [Z95.2] INVALID FOR* Anticoagulation monitoring, INR range 2.5-3.5 [*INVALID FOR* Fracture of metatarsal bone of left foot [S92.3*INVALID FOR*06/19/[address] [facility] [address] [address] Office: [phone] Jessica Atwood MD REQUEST FOR EYE EXAM FINDINGS September 04, 2016 Dear eye career placement services counselor, Thank you for coordinating eye care for our mutual patient, Maciel Bucio (1950). Please fax this letter back to me with the most appropriate response selected below. Please allow the patient's signature to serve as permission to share your findings. Sincerely, Jessica Atwood MD Patient Signature Date Date of eye exam: Findings Both Eyes Right Left No Retinopathy Detected Non Proliferative Retinopathy Mild Moderate Severe Proliferative Retinopathy Macular Edema Further testing and/or treatment indicated Comments: Patient is to return: Encounter Status:Closed by TURK PSRRADHA on 03/01/18 CNCO Observed: 03/01/2018 Status: COMPLETED Source: [place] 12:00 AM [facility] REPOSITORY Letter [facility] [address] [id number] Office: [phone] Jessica Atwood MD REQUEST FOR EYE EXAM FINDINGS September 04, 2016 Dear Eye Gynecological Assistant, Thank you for coordinating eye care for our mutual patient, Maciel Bucio (1950). Please fax this letter back to me with the most appropriate response selected below. Please allow the patient's signature to serve as permission to share your findings. Sincerely, Jessica Atwood MD Patient Signature Date Date of eye exam: Findings Both Eyes Right Left No Retinopathy Detected Non Proliferative Retinopathy Mild Moderate Severe Proliferative Retinopathy Macular Edema Further testing and/or treatment indicated Comments: Patient is to return: [facility] Jessica Atwood MD [address] [phone] Dear Maciel Shinott, Your health care is very important to us. Our records indicate that you may be due for a diabetic eye exam. If you have had a diabetic eye exam within the last year, please have your records sent to us so that we may update your medical records. There is a medical records of release of information included in this letter. Please take the release to your eye doctor for future appointments to have your records forwarded to us. Important facts about diabetic eye exams Diabetic retinal exams should be done yearly for all patients with a diagnosis of diabetes. Risks such as diabetic retinopathy can be reduced with blood glucose control and early detection of potential problems. Diabetic retinopathy is damage to the small blood vessels in the retina that can lead to blindness Thank you, Jessica Atwood MD PROGRESS Observed: 02/28/2018 Status: COMPLETED Source: [place] 11:[address] [facility] REPOSITORY HNO ID: [id number] Author: Raven Zuniga RN Service: (none) Author Type: (none) Type: Progress Notes Filed: 02/28/2018 11:30 AM Note Text: patient had inr completed at [facility] patients inr is 1.0 (patients inr range is 2.5-3.5) patient is currently taking 3mg daily patients last dose change was on 02/10/18 due to a high level of 6.9 (dose at that time was was 6mg Mon,Wed,Fri and 5mg all other days) patient has had no changes in medication and no missed doses and no change in diet Advised patient that they would be contacted regarding medication dose and when to follow up after information is reviewed by provider. After provider review please contact the patient with information and schedule follow up appointment with coumadin clinic. FYI - patient has been scheduled for an inr follow up in 2 weeks 03/15/18 PROGRESS Observed: 02/14/2018 Status: COMPLETED Source: [place] 5:[address] [facility] REPOSITORY HNO ID: [id number] Author: Raven Zuniga RN Service: (none) Author Type: (none) Type: Progress Notes Filed: 02/14/2018 5:17 PM Note Text: per written order by dr hardy pt is to continue with the 3mg daily PATIENT NOTIFIED OF INFORMATION PROGRESS Observed: 02/14/2018 Status: COMPLETED Source: [place] 12:[address] [facility] REPOSITORY HNO ID: [id number] Author: Raven Zuniga RN Service: (none) Author Type: (none) Type: Progress Notes Filed: 02/14/2018 12:03 PM Note Text: patient had inr completed at [facility] patients inr is 2.0 (patients inr range is 2.5-3.5) patient is currently taking 3mg daily (times 2 doses) patients last dose change was on 02/10/18 due to a high level of 6.9 (dose at that time was 6mg Mon,Wed,Fri and 5mg all other days) patient has had no changes to medication except for the coumadin and no missed doses and no change in diet Advised patient that they would be contacted regarding medication dose and when to follow up after information is reviewed by provider. After provider review please contact the patient with information and schedule follow up appointment with coumadin clinic. FYI - patients has been scheduled for a 2 week follow up inr on 02/28/18 PROGRESS Observed: 02/10/2018 Status: COMPLETED Source: [place] 11:[address] [facility] REPOSITORY HNO ID: [id number] Author: Raven Zuniga RN Service: (none) Author Type: (none) Type: Progress Notes Filed: 02/10/2018 11:50 AM Note Text: patient had inr completed at [facility] patients inr is >8.0 (patients inr range is 2.5-3.5) patient is currently taking 6mg Mon,Wed,Fri and 5mg all other days patients last dose change was on 01/04/18 due to a low level of 2.1 (dose at that time was 5mg daily) patient has had no changes in medication and no missed doses and no change in diet FYI - patient does have bruising and pain in right upper inner thigh, pt did go to the ER for this but was told that is was probably caused by her surgery that was 2 week prior. Patient has been sent to the lab to have a stat venous draw and has been notified of bleeding precautions. PROTHROMBIN TIME W/INR Collected: 02/10/2018 Status: F Source: [place] 9:48 [facility] REPOSITORY TYPE CODE TESTS RESULT OUT OF REFERENCE UNITS RANGE LAB L300.4150 11.7-14.9 SECONDS High PROTIME 60.2 LAB L300.4200 High alert INR 6.9 Result Comment: CRITICAL VALUE VERIFIED. CALLED TO ANNALEE COELLO 02/10/18 [address] RESULTS READ BACK BY SAME. Performed By: #### L300.3900 #### [facility] [address] [place], [place], [address] PROTIME Collected: 02/10/2018 Status: F Source: [place] 9:[address] [facility] REPOSITORY TYPE CODE TESTS RESULT OUT OF REFERENCE UNITS RANGE LAB PSEC 9.7-13.0 sec Test PT sent to [facility]. Result Comment: Account Credited [facility] LAB INR 0.9-1.3 Test sent to PT INR [facility]. Result Comment: Account Credited [facility] Observed: 01/30/2018 Status: F Source: [place] SUMMARY 7:45 AM [facility] [place] [facility]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 [place] [address] PROTHROMBIN TIME W/INR Collected: 10/20/2017 Status: F Source: [place] 6:05 AM [facility] [place] TYPE CODE TESTS RESULT OUT OF RANGE REFERENCE UNITS LAB L300.4150 11.7-14.9 SECONDS High PROTIME 26.9 LAB L300.4200 Normal INR 2.5 Performed By: #### L300.3900, L300.4310 #### [facility] [address] [facility] [address] PARTIAL THROMBOPLAST Collected: 10/20/2017 Status: F Source: [place] TIME 6:05 AM [facility] [place] TYPE CODE TESTS RESULT OUT OF REFERENCE UNITS RANGE LAB L300.4310 24.1-36.2 Seconds High PTT 51.7 Performed By: #### L300.3900, L300.4310 #### [facility] [address] [facility] [address] BEDSIDE GLUCOSE Collected: 10/19/2017 Status: F Source: [place] 9:13 PM [facility] [place] TYPE CODE TESTS RESULT OUT OF REFERENCE UNITS RANGE LAB L501.080 70-110 mg/dL High BEDSIDE GLU 215 Result Comment: MANAGEMENT OF PATIENT CARE PER NURSING PROTOCOL Performed By: #### L501.080 #### [facility] Point of Care [address] [place] [address] BEDSIDE GLUCOSE Collected: 10/19/2017 Status: F Source: [place] 4:39 PM [facility] [place] TYPE CODE TESTS RESULT OUT OF REFERENCE UNITS RANGE LAB L501.080 70-110 mg/dL High BEDSIDE GLU 276 Result Comment: MANAGEMENT OF PATIENT CARE PER NURSING PROTOCOL Performed By: #### L501.080 #### [facility] Point of Care [address] [place] [address] BEDSIDE GLUCOSE Collected: 10/19/2017 Status: F Source: [place] 11:32 AM [facility] [place] TYPE CODE TESTS RESULT OUT OF REFERENCE UNITS RANGE LAB L501.080 70-110 mg/dL High BEDSIDE GLU 384 Result Comment: MANAGEMENT OF PATIENT CARE PER NURSING PROTOCOL Performed By: #### L501.080 #### [facility] Point of Care [address] [place] [address] BEDSIDE GLUCOSE Collected: 10/19/2017 Status: F Source: [place] 6:56 AM [facility] [place] TYPE CODE TESTS RESULT OUT OF REFERENCE UNITS RANGE LAB L501.080 70-110 mg/dL High BEDSIDE GLU 320 Result Comment: MANAGEMENT OF PATIENT CARE PER NURSING PROTOCOL Performed By: #### L501.080 #### [facility] Point of Care [address] [place], [place] [address] BASIC METABOLIC Collected: 10/19/2017 Status: F Source: [place] PROFILE (BMP) 4:55 AM [facility] [place] Order Comment: SPECIMEN OBTAINED FROM LINE DRAW TYPE CODE TESTS RESULT OUT OF RANGE REFERENCE UNITS LAB L501.0100 74-106 mg/dL High GLU 302 Result Comment: Glucose result greater than or equal to 200 mg/dL suggests DIABETES MELLITUS per A.D.A. criteria. Please note revised GLUCOSE reference range effective 2017. LAB L501.1000 7-18 mg/dL Normal BUN 15 LAB L501.1100 0.55-1.02 mg/dL Low CREAT,SERUM 0.50 Result Comment: The validity of the calculated GFR AND GFRAA in patients over 70 years has not been determined. Clinical correlation is essential. LAB L501.1110 >60 mL/min Normal EST GFR 129 Result Comment: Non- GFR Calc LAB L501.1115 >60 mL/min Normal EST GFR - AA 156 Result Comment: GFR Calc LAB L501.1255 ml/min Normal Estimated CRCL 40.07 LAB L501.1300 10-20 RATIO High BUN/CRE 29.8 LAB L501.2200 8.5-10 mg/dL Normal .1 CA 9.2 LAB L501.5300 136-14 mmol/L Normal 5 NA 138 LAB L501.5600 3.5-5. mmol/L Normal 1 K 4.2 LAB L501.5900 98-107 mmol/L Normal CL 103 LAB L501.6100 21.0-3 mmol/L Normal 2.0 CO2 27.0 LAB L501.6200 5-15 Normal GAP 8 Performed By: #### L500.2500 #### [facility] [address] [place], [place], [address] PROTHROMBIN TIME W/INR Collected: 10/19/2017 Status: F Source: [place] 4:55 AM [facility] [place] Order Comment: SPECIMEN OBTAINED FROM LINE DRAW TYPE CODE TESTS RESULT OUT OF RANGE REFERENCE UNITS LAB L300.4150 11.7-14.9 SECONDS High PROTIME 25.8 LAB L300.4200 Normal INR 2.3 Performed By: #### L300.3900 #### [facility] [address] [place], [address] PARTIAL THROMBOPLAST Collected: 10/19/2017 Status: F Source: [place] TIME 4:55 AM [facility] [place] TYPE CODE TESTS RESULT OUT OF REFERENCE UNITS RANGE LAB L300.4310 24.1-36.2 Seconds High PTT 62.1 Performed By: #### L300.4310 #### [facility] [address] [place], [address] BEDSIDE GLUCOSE Collected: 10/18/2017 Status: F Source: [place] 10:28 PM [facility] [place] TYPE CODE TESTS RESULT OUT OF REFERENCE UNITS RANGE LAB L501.080 70-110 mg/dL High BEDSIDE GLU 333 Result Comment: MANAGEMENT OF PATIENT CARE PER NURSING PROTOCOL Performed By: #### L501.080 #### [facility] Point of Care [address] [place] [address] BEDSIDE GLUCOSE Collected: 10/18/2017 Status: F Source: [place] 4:42 PM [facility] [place] [facility] TYPE CODE TESTS RESULT OUT OF REFERENCE UNITS RANGE LAB L501.080 70-110 mg/dL High BEDSIDE GLU 240 Result Comment: MANAGEMENT OF PATIENT CARE PER NURSING PROTOCOL Performed By: #### L501.080 #### [facility] Point of Care [address] [place] [address] BEDSIDE GLUCOSE Collected: 10/18/2017 Status: F Source: [place] 11:28 AM [facility] [place] [facility] TYPE CODE TESTS RESULT OUT OF REFERENCE UNITS RANGE LAB L501.080 70-110 mg/dL High BEDSIDE GLU 350 Result Comment: MANAGEMENT OF PATIENT CARE PER NURSING PROTOCOL Performed By: #### L501.080 #### [facility] Point of Care [address] [place] [address] BEDSIDE GLUCOSE Collected: 10/18/2017 Status: F Source: [place] 6:54 AM [facility] [place] TYPE CODE TESTS RESULT OUT OF REFERENCE UNITS RANGE LAB L501.080 70-110 mg/dL High BEDSIDE GLU 286 Result Comment: MANAGEMENT OF PATIENT CARE PER NURSING PROTOCOL Performed By: #### L501.080 #### [facility] Point of Care [address] [place] [address] BASIC METABOLIC Collected: 10/18/2017 Status: F Source: [place] PROFILE (BMP) 4:15 AM [facility] [place] TYPE CODE TESTS RESULT OUT OF RANGE REFERENCE UNITS LAB L501.0100 74-106 mg/dL High GLU 291 Result Comment: Glucose result greater than or equal to 200 mg/dL suggests DIABETES MELLITUS per A.D.A. criteria. Please note revised GLUCOSE reference range effective 2017. LAB L501.1000 7-18 mg/dL Normal BUN 14 LAB L501.1100 0.55-1.02 mg/dL Low CREAT,SERUM 0.54 Result Comment: The validity of the calculated GFR AND GFRAA in patients over 70 years has not been determined. Clinical correlation is essential. LAB L501.1110 >60 mL/min Normal EST GFR 120 Result Comment: Non- GFR Calc LAB L501.1115 >60 mL/min Normal EST GFR - AA 145 Result Comment: GFR Calc LAB L501.1255 ml/min Normal Estimated CRCL 40.07 LAB L501.1300 10-20 RATIO High BUN/CRE 26.1 LAB L501.2200 8.5-10 mg/dL Normal .1 CA 8.7 LAB L501.5300 136-14 mmol/L Normal 5 NA 140 LAB L501.5600 3.5-5. mmol/L Normal 1 K 4.2 LAB L501.5900 98-107 mmol/L Normal CL 103 LAB L501.6100 21.0-3 mmol/L Normal 2.0 CO2 26.0 LAB L501.6200 5-15 Normal GAP 11 Performed By: #### L500.2500 #### [facility] [address] [place], [address] CBC-COMPLETE BLOOD CNT Collected: 10/18/2017 Status: F Source: [place] NO DIFF 4:15 AM [facility] [place] TYPE CODE TESTS RESULT OUT OF RANGE REFERENCE UNITS LAB L100.1000 4.4-11.0 K/mm3 Normal WBC 8.6 LAB L100.1200 4.2-5.4 M/mm3 Low RBC 3.30 LAB L100.1300 12.0-15.0 g/dl Low HGB 9.8 LAB L100.1400 37-47 % Low HCT 30.0 LAB L100.1500 81-99 fL Normal MCV 90.9 LAB L100.1600 27.0-32.0 pg Normal MCH 29.7 LAB L100.1700 32-36 g/gl Normal MCHC 32.7 LAB L100.1810 11.6-14.6 % Normal RDW CV 13.9 LAB L100.1820 35.1-43.9 fl High RDW SD 44.5 LAB L100.1900 150-450 K/mm3 Normal PLT 340 LAB L100.2000 6.2-12.0 fl Normal MPV 10.3 Performed By: #### L100.0500 #### [facility] [address] [place], [place], [address] PROTHROMBIN TIME W/INR Collected: 10/18/2017 Status: F Source: [place] 4:15 AM [facility] [place] TYPE CODE TESTS RESULT OUT OF RANGE REFERENCE UNITS LAB L300.4150 11.7-14.9 SECONDS High PROTIME 24.0 LAB L300.4200 Normal INR 2.1 Performed By: #### L300.3900, L300.4310 #### [facility] [address] [place], [address] PARTIAL THROMBOPLAST Collected: 10/18/2017 Status: F Source: [place] TIME 4:15 AM [facility] [place] TYPE CODE TESTS RESULT OUT OF REFERENCE UNITS RANGE LAB L300.4310 24.1-36.2 Seconds High PTT 65.2 Performed By: #### L300.3900, L300.4310 #### [facility] [address] [place], [place], [address] BEDSIDE GLUCOSE Collected: 10/17/2017 Status: F Source: [place] 9:08 PM [facility] [place] TYPE CODE TESTS RESULT OUT OF REFERENCE UNITS RANGE LAB L501.080 70-110 mg/dL High BEDSIDE GLU 329 Result Comment: MANAGEMENT OF PATIENT CARE PER NURSING PROTOCOL Performed By: #### L501.080 #### [facility] Point of Care [address] [place] [address] PARTIAL THROMBOPLAST Collected: 10/17/2017 Status: F Source: [place] TIME 9:00 PM [facility] [place] TYPE CODE TESTS RESULT OUT OF REFERENCE UNITS RANGE LAB L300.4310 24.1-36.2 Seconds High PTT 60.5 Performed By: #### L300.4310 #### [facility] [address] [place], [address] BEDSIDE GLUCOSE Collected: 10/17/2017 Status: F Source: [place] 3:53 PM [facility] [place] [facility] TYPE CODE TESTS RESULT OUT OF REFERENCE UNITS RANGE LAB L501.080 70-110 mg/dL High BEDSIDE GLU 307 Result Comment: MANAGEMENT OF PATIENT CARE PER NURSING PROTOCOL Performed By: #### L501.080 #### [facility] Point of Care [address] [place] [address] PARTIAL THROMBOPLAST Collected: 10/17/2017 Status: F Source: [place] TIME 2:05 PM [facility] [place] [facility] Order Comment: Comments: heparin protocol TYPE CODE TESTS RESULT OUT OF REFERENCE UNITS RANGE LAB L300.4310 24.1-36.2 Seconds High PTT 65.9 Performed By: #### L300.4310 #### [facility] [address] [place], [address] BEDSIDE GLUCOSE Collected: 10/17/2017 Status: F Source: [place] 11:07 AM [facility] [place] [facility] TYPE CODE TESTS RESULT OUT OF REFERENCE UNITS RANGE LAB L501.080 70-110 mg/dL High BEDSIDE GLU 373 Result Comment: Insulin Given MANAGEMENT OF PATIENT CARE PER NURSING PROTOCOL Performed By: #### L501.080 #### [facility] Point of Care [address] [place] [address] BEDSIDE GLUCOSE Collected: 10/17/2017 Status: F Source: [place] 6:46 AM [facility] [place] [facility] TYPE CODE TESTS RESULT OUT OF REFERENCE UNITS RANGE LAB L501.080 70-110 mg/dL High BEDSIDE GLU 282 Result Comment: MANAGEMENT OF PATIENT CARE PER NURSING PROTOCOL Performed By: #### L501.080 #### [facility] Point of Care [address] [place] [address] CBC-COMPLETE BLOOD CNT Collected: 10/17/2017 Status: F Source: [place] NO DIFF 5:10 AM [facility] [place] [facility] TYPE CODE TESTS RESULT OUT OF RANGE REFERENCE UNITS LAB L100.1000 4.4-11.0 K/mm3 Normal WBC 9.2 LAB L100.1200 4.2-5.4 M/mm3 Low RBC 3.68 LAB L100.1300 12.0-15.0 g/dl Low HGB 10.8 LAB L100.1400 37-47 % Low HCT 33.4 LAB L100.1500 81-99 fL Normal MCV 90.8 LAB L100.1600 27.0-32.0 pg Normal MCH 29.3 LAB L100.1700 32-36 g/gl Normal MCHC 32.3 LAB L100.1810 11.6-14.6 % Normal RDW CV 13.9 LAB L100.1820 35.1-43.9 fl High RDW SD 44.8 LAB L100.1900 150-450 K/mm3 Normal PLT 396 LAB L100.2000 6.2-12.0 fl Normal MPV 10.8 Performed By: #### L100.0500 #### [facility] [address] [facility] [place], [place], [address] BASIC METABOLIC Collected: 10/17/2017 Status: F Source: [place] PROFILE (BMP) 5:10 AM [facility] [place] [facility] TYPE CODE TESTS RESULT OUT OF RANGE REFERENCE UNITS LAB L501.0100 74-106 mg/dL High GLU 280 Result Comment: Glucose result greater than or equal to 200 mg/dL suggests DIABETES MELLITUS per A.D.A. criteria. Please note revised GLUCOSE reference range effective 2017. LAB L501.1000 7-18 mg/dL Normal BUN 13 LAB L501.1100 0.55-1.02 mg/dL Low CREAT,SERUM 0.54 Result Comment: The validity of the calculated GFR AND GFRAA in patients over 70 years has not been determined. Clinical correlation is essential. LAB L501.1110 >60 mL/min Normal EST GFR 120 Result Comment: Non- GFR Calc LAB L501.1115 >60 mL/min Normal EST GFR - AA 145 Result Comment: GFR Calc LAB L501.1255 ml/min Normal Estimated CRCL 40.07 LAB L501.1300 10-20 RATIO High BUN/CRE 24.2 LAB L501.2200 8.5-10 mg/dL Normal .1 CA 9.2 LAB L501.5300 136-14 mmol/L Normal 5 NA 139 LAB L501.5600 3.5-5. mmol/L Normal 1 K 4.6 LAB L501.5900 98-107 mmol/L Normal CL 104 LAB L501.6100 21.0-3 mmol/L Normal 2.0 CO2 29.0 LAB L501.6200 5-15 Normal GAP 6 Performed By: #### L500.2500, L501.5200 #### [facility] [address] [place], [address] MAGNESIUM Collected: 10/17/2017 Status: F Source: [place] 5:10 AM [facility] [place] TYPE CODE TESTS RESULT OUT OF RANGE REFERENCE UNITS LAB L501.5200 1.6-2.6 mg/dL Normal MG 1.7 Result Comment: Please note revised Magnesium reference range effective 2017. Performed By: #### L500.2500, L501.5200 #### [facility] [address] [place], [address] PROTHROMBIN TIME W/INR Collected: 10/17/2017 Status: F Source: [place] 5:10 AM [facility] [place] TYPE CODE TESTS RESULT OUT OF RANGE REFERENCE UNITS LAB L300.4150 11.7-14.9 SECONDS High PROTIME 20.1 LAB L300.4200 Normal INR 1.7 Performed By: #### L300.3900, L300.4310 #### [facility] [address] [place], [address] PARTIAL THROMBOPLAST Collected: 10/17/2017 Status: F Source: [place] TIME 5:10 AM [facility] [place] TYPE CODE TESTS RESULT OUT OF REFERENCE UNITS RANGE LAB L300.4310 24.1-36.2 Seconds High PTT 53.6 Performed By: #### L300.3900, L300.4310 #### [facility] [address] [place], [address] BEDSIDE GLUCOSE Collected: 10/16/2017 Status: F Source: [place] 9:21 PM [facility] [place] [facility] TYPE CODE TESTS RESULT OUT OF REFERENCE UNITS RANGE LAB L501.080 70-110 mg/dL High BEDSIDE GLU 269 Result Comment: MANAGEMENT OF PATIENT CARE PER NURSING PROTOCOL Performed By: #### L501.080 #### [facility] Point of Care [address] [place] [address] BEDSIDE GLUCOSE Collected: 10/16/2017 Status: F Source: [place] 4:29 PM [facility] [place] TYPE CODE TESTS RESULT OUT OF REFERENCE UNITS RANGE LAB L501.080 70-110 mg/dL High BEDSIDE GLU 277 Result Comment: MANAGEMENT OF PATIENT CARE PER NURSING PROTOCOL Performed By: #### L501.080 #### [facility] Point of Care [address] [place] [address] BEDSIDE GLUCOSE Collected: 10/16/2017 Status: F Source: [place] 11:37 AM [facility] [place] TYPE CODE TESTS RESULT OUT OF REFERENCE UNITS RANGE LAB L501.080 70-110 mg/dL High BEDSIDE GLU 432 Result Comment: MANAGEMENT OF PATIENT CARE PER NURSING PROTOCOL Performed By: #### L501.080 #### [facility] Point of Care [address] [place] [address] BEDSIDE GLUCOSE Collected: 10/16/2017 Status: F Source: [place] 6:45 AM [facility] [place] TYPE CODE TESTS RESULT OUT OF REFERENCE UNITS RANGE LAB L501.080 70-110 mg/dL High BEDSIDE GLU 267 Result Comment: MANAGEMENT OF PATIENT CARE PER NURSING PROTOCOL Performed By: #### L501.080 #### [facility] Point of Care [address] [facility] [place] [address] PARTIAL THROMBOPLAST Collected: 10/16/2017 Status: F Source: [place] TIME 3:05 AM [facility] [place] [facility] Order Comment: SPECIMEN OBTAINED FROM LINE DRAW TYPE CODE TESTS RESULT OUT OF REFERENCE UNITS RANGE LAB L300.4310 24.1-36.2 Seconds High PTT 58.9 Performed By: #### L300.4310 #### [facility] [address] [place] [address]. [place], [address] PROTHROMBIN TIME W/INR Collected: 10/16/2017 Status: F Source: [place] 3:05 AM [facility] [place] TYPE CODE TESTS RESULT OUT OF RANGE REFERENCE UNITS LAB L300.4150 11.7-14.9 SECONDS High PROTIME 17.9 LAB L300.4200 Normal INR 1.5 Performed By: #### L300.3900 #### [facility] [address] [place] [address]. [place], [address] BEDSIDE GLUCOSE Collected: 10/15/2017 Status: F Source: [place] 9:52 PM [facility] [place] [facility] TYPE CODE TESTS RESULT OUT OF REFERENCE UNITS RANGE LAB L501.080 70-110 mg/dL High BEDSIDE GLU 352 Result Comment: MANAGEMENT OF PATIENT CARE PER NURSING PROTOCOL Performed By: #### L501.080 #### [facility] [address] [address] [facility] [place] [address] PARTIAL THROMBOPLAST Collected: 10/15/2017 Status: F Source: [place] TIME 9:10 PM [facility] [place] [facility] TYPE CODE TESTS RESULT OUT OF REFERENCE UNITS RANGE LAB L300.4310 24.1-36.2 Seconds High PTT 73.0 Performed By: #### L300.4310 #### [facility] [address] [facility] [place], [address] BEDSIDE GLUCOSE Collected: 10/15/2017 Status: F Source: [place] 5:47 PM [facility] [place] [facility] TYPE CODE TESTS RESULT OUT OF REFERENCE UNITS RANGE LAB L501.080 70-110 mg/dL High BEDSIDE GLU 153 Result Comment: MANAGEMENT OF PATIENT CARE PER NURSING PROTOCOL Performed By: #### L501.080 #### [facility] Point of Care [address] [place] [address] PARTIAL THROMBOPLAST Collected: 10/15/2017 Status: F Source: [place] TIME 1:58 PM [facility] [place] TYPE CODE TESTS RESULT OUT OF REFERENCE UNITS RANGE LAB L300.4310 24.1-36.2 Seconds High PTT 40.5 Performed By: #### L300.4310 #### [facility] [address] [place], [address] BEDSIDE GLUCOSE Collected: 10/15/2017 Status: F Source: [place] 12:03 PM [facility] [place] [facility] TYPE CODE TESTS RESULT OUT OF REFERENCE UNITS RANGE LAB L501.080 70-110 mg/dL High BEDSIDE GLU 284 Result Comment: MANAGEMENT OF PATIENT CARE PER NURSING PROTOCOL Performed By: #### L501.080 #### [facility] Point of Care [address] [place] [address] BEDSIDE GLUCOSE Collected: 10/15/2017 Status: F Source: [place] 6:55 AM [facility] [place] [facility] TYPE CODE TESTS RESULT OUT OF REFERENCE UNITS RANGE LAB L501.080 70-110 mg/dL High BEDSIDE GLU 293 Result Comment: MANAGEMENT OF PATIENT CARE PER NURSING PROTOCOL Performed By: #### L501.080 #### [facility] Point of Care [address] [place] [address] BASIC METABOLIC Collected: 10/15/2017 Status: F Source: [place] PROFILE (BMP) 6:30 AM [facility] [place] TYPE CODE TESTS RESULT OUT OF RANGE REFERENCE UNITS LAB L501.0100 74-106 mg/dL High GLU 269 Result Comment: Glucose result greater than or equal to 200 mg/dL suggests DIABETES MELLITUS per A.D.A. criteria. Please note revised GLUCOSE reference range effective 2017. LAB L501.1000 7-18 mg/dL Normal BUN 15 LAB L501.1100 0.55-1.02 mg/dL Low CREAT,SERUM 0.44 Result Comment: The validity of the calculated GFR AND GFRAA in patients over 70 years has not been determined. Clinical correlation is essential. LAB L501.1110 >60 mL/min Normal EST GFR 152 Result Comment: Non- GFR Calc LAB L501.1115 >60 mL/min Normal EST GFR - AA 184 Result Comment: GFR Calc LAB L501.1255 ml/min Normal Estimated CRCL 40.07 LAB L501.1300 10-20 RATIO High BUN/CRE 34.5 LAB L501.2200 8.5-10 mg/dL Normal .1 CA 9.2 LAB L501.5300 136-14 mmol/L Normal 5 NA 137 LAB L501.5600 3.5-5. mmol/L Normal 1 K 4.2 LAB L501.5900 98-107 mmol/L Normal CL 101 LAB L501.6100 21.0-3 mmol/L Normal 2.0 CO2 29.0 LAB L501.6200 5-15 Normal GAP 7 Performed By: #### L500.2500 #### [facility] [address] [place], [address] CBC-COMPLETE BLOOD CNT Collected: 10/15/2017 Status: F Source: [place] NO DIFF 6:30 AM [facility] [place] TYPE CODE TESTS RESULT OUT OF RANGE REFERENCE UNITS LAB L100.1000 4.4-11.0 K/mm3 Normal WBC 5.4 LAB L100.1200 4.2-5.4 M/mm3 Low RBC 3.59 LAB L100.1300 12.0-15.0 g/dl Low HGB 10.6 LAB L100.1400 37-47 % Low HCT 32.0 LAB L100.1500 81-99 fL Normal MCV 89.1 LAB L100.1600 27.0-32.0 pg Normal MCH 29.5 LAB L100.1700 32-36 g/gl Normal MCHC 33.1 LAB L100.1810 11.6-14.6 % Normal RDW CV 13.9 LAB L100.1820 35.1-43.9 fl High RDW SD 44.3 LAB L100.1900 150-450 K/mm3 Normal PLT 306 LAB L100.2000 6.2-12.0 fl Normal MPV 10.7 Performed By: #### L100.0500 #### [facility] [address] [place], [place], [address] PROTHROMBIN TIME W/INR Collected: 10/15/2017 Status: F Source: [place] 6:30 AM [facility] [place] [facility] Order Comment: Comments: pt on heparin gtt TYPE CODE TESTS RESULT OUT OF RANGE REFERENCE UNITS LAB L300.4150 11.7-14.9 SECONDS High PROTIME 18.1 LAB L300.4200 Normal INR 1.5 Performed By: #### L300.3900, L300.4310 #### [facility] [address] [place], [place], [address] PARTIAL THROMBOPLAST Collected: 10/15/2017 Status: F Source: [place] 6:30 AM [facility] [place] [facility] Order Comment: Comments: pt on heparin gtt TYPE CODE TESTS RESULT OUT OF REFERENCE UNITS RANGE LAB L300.4310 24.1-36.2 Seconds High PTT 53.0 Performed By: #### L300.3900, L300.4310 #### [facility] [address] [place], [address] PARTIAL THROMBOPLAST Collected: 10/15/2017 Status: F Source: [place] 12:55 AM [facility] [place] [facility] Order Comment: Comments: HEPARIN GTT TYPE CODE TESTS RESULT OUT OF REFERENCE UNITS RANGE LAB L300.4310 24.1-36.2 Seconds High PTT 65.9 Performed By: #### L300.4310 #### [facility] [address] [place], [place], [address] BEDSIDE GLUCOSE Collected: 10/14/2017 Status: F Source: [place] 9:40 PM [facility] [place] [facility] TYPE CODE TESTS RESULT OUT OF REFERENCE UNITS RANGE LAB L501.080 70-110 mg/dL High BEDSIDE GLU 172 Result Comment: MANAGEMENT OF PATIENT CARE PER NURSING PROTOCOL Performed By: #### L501.080 #### [facility] Point of Care [address] [place], [place] [address] PARTIAL THROMBOPLAST Collected: 10/14/2017 Status: F Source: [place] 5:50 PM [facility] [place] [facility] TYPE CODE TESTS RESULT OUT OF REFERENCE UNITS RANGE LAB L300.4310 24.1-36.2 Seconds High PTT 49.8 Performed By: #### L300.4310 #### [facility] [address] [facility] [place], [address] BEDSIDE GLUCOSE Collected: 10/14/2017 Status: F Source: [place] 5:22 PM [facility] [place] TYPE CODE TESTS RESULT OUT OF REFERENCE UNITS RANGE LAB L501.080 70-110 mg/dL High BEDSIDE GLU 239 Result Comment: Dr Orders Followed Insulin Given MANAGEMENT OF PATIENT CARE PER NURSING PROTOCOL Performed By: #### L501.080 #### [facility] Point of Care [address] [facility] [place] [address] ECHO TRANSESOPHAGEAL (LAURA) Observed: 10/14/2017 Status: F Source: [place] 12:46 PM [facility] [place] [facility] [address] [place] [address] Echo Transesophageal (LAURA) 10/14/17 1025 MR#: [id number] Acct: [id number] Name: MACIEL BUCIO Rep #: [id number] : 1950 67 From: Sixto Beltran MD Attending Dr: Rafa Breaux MD Status: ADM IN Ordering Dr: Dnonie Luevano DO Date: 10/14/17 Location: ICU Sex: F C Admitted: 10/11/17 Reason For Study: Murmur Medication LAURA probe passed without difficulty. No complications were noted. [id number] gargled and swallowed. Cetacaine Topical [place] given X2 orally. Versed 2 mg given slow IVP. Fentanyl 25 mcg given slow IVP. Performed a rapid injection of agitated mix of 9 cc saline and 1cc air to assess for atrial septal defect. Left Ventricle Normal size and thickness. The estimated ejection fraction is 65 %. No regional wall motion abnormalities noted. Right Ventricle Normal size and thickness. Normal systolic function. Atria Normal atrial septum. Normal left atrium. No thrombus is detected in the left atrial appendage. Normal right atrium. Mitral Valve Trivial mitral valve insufficiency. Normal prosthetic mitral valve. Stable appearing mechanical mitral valve apparatus. Tricuspid Valve Normal tricuspid valve. Mild (1+) tricuspid valve insufficiency. Right ventricular systolic pressure estimated to be 21 mmHg. Aortic Valve Trisinus/trileaflet aortic valve. Mild diffuse aortic valve thickening. Trivial aortic valve insufficiency. Pulmonic Valve Normal pulmonic valve. Vessels Normal ascending aorta. Normal arch. The pulmonary artery is normal size. Pulmonary venous flow normal. Pericardium No pericardial effusion. Interpretation Summary There is no evidence of a mass or vegetation. This does not rule out endocarditis. The estimated ejection fraction is 65 %. No thrombus is detected in the left atrial appendage. Normal prosthetic mitral valve. No evidence of vegetations noted. Stable appearing mechanical mitral valve apparatus. Mild (1+) tricuspid valve insufficiency. Right ventricular systolic pressure estimated to be 21 mmHg. Trivial aortic valve insufficiency. Ordering Physician: Donnie Luevaon D.O. Referring Physician: Jessica Hardy Performed By: Venecia Hubbard [facility] 10/14/17 1245 Date Sixto Beltran MD CC: Donnie Luevano D.O.; Jessica Hardy MD Date Dictated: 10/14/17 1025 Date Transcribed: 10/14/17 1245 Programmer Developer: Signed BEDSIDE GLUCOSE Collected: 10/14/2017 Status: F Source: [place] 11:59 AM [facility] [place] [facility] TYPE CODE TESTS RESULT OUT OF REFERENCE UNITS RANGE LAB L501.080 70-110 mg/dL High BEDSIDE GLU 209 Result Comment: Orders Followed Insulin Given MANAGEMENT OF PATIENT CARE PER NURSING PROTOCOL Performed By: #### L501.080 #### [facility] Point of Care [address] [place] [address] PARTIAL THROMBOPLAST Collected: 10/14/2017 Status: F Source: [place] TIME 11:15 AM [facility] [place] [facility] TYPE CODE TESTS RESULT OUT OF REFERENCE UNITS RANGE LAB L300.4310 24.1-36.2 Seconds High PTT 52.5 Performed By: #### L300.4310 #### [facility] [address] [place], [place], [address] BEDSIDE GLUCOSE Collected: 10/14/2017 Status: F Source: [place] 9:01 AM [facility] [place] [facility] TYPE CODE TESTS RESULT OUT OF REFERENCE UNITS RANGE LAB L501.080 70-110 mg/dL High BEDSIDE GLU 251 Result Comment: Orders Followed Insulin Given MANAGEMENT OF PATIENT CARE PER NURSING PROTOCOL Performed By: #### L501.080 #### [facility] Point of Care [address] [place], [place] [address] BEDSIDE GLUCOSE Collected: 10/14/2017 Status: F Source: [place] 6:47 AM [facility] [place] [facility] TYPE CODE TESTS RESULT OUT OF REFERENCE UNITS RANGE LAB L501.080 70-110 mg/dL High BEDSIDE GLU 237 Result Comment: Orders Followed MANAGEMENT OF PATIENT CARE PER NURSING PROTOCOL Performed By: #### L501.080 #### [facility] Point of Care [address] [place], [place] [address] CBC-COMPLETE BLOOD CNT Collected: 10/14/2017 Status: F Source: [place] NO DIFF 4:50 AM [facility] [place] [facility] TYPE CODE TESTS RESULT OUT OF RANGE REFERENCE UNITS LAB L100.1000 4.4-11.0 K/mm3 Normal WBC 5.7 LAB L100.1200 4.2-5.4 M/mm3 Low RBC 3.59 LAB L100.1300 12.0-15.0 g/dl Low HGB 10.6 LAB L100.1400 37-47 % Low HCT 32.0 LAB L100.1500 81-99 fL Normal MCV 89.1 LAB L100.1600 27.0-32.0 pg Normal MCH 29.5 LAB L100.1700 32-36 g/gl Normal MCHC 33.1 LAB L100.1810 11.6-14.6 % Normal RDW CV 14.3 LAB L100.1820 35.1-43.9 fl High RDW SD 45.6 LAB L100.1900 150-450 K/mm3 Normal PLT 265 LAB L100.2000 6.2-12.0 fl Normal MPV 10.6 Performed By: #### L100.0500 #### [facility] [address] [facility] [address] [place], [place], [address] BASIC METABOLIC Collected: 10/14/2017 Status: F Source: [place] PROFILE (BMP) 4:50 AM [facility] [place] [facility] TYPE CODE TESTS RESULT OUT OF RANGE REFERENCE UNITS LAB L501.0100 74-106 mg/dL High GLU 247 Result Comment: Glucose result greater than or equal to 200 mg/dL suggests DIABETES MELLITUS per A.D.A. criteria. Please note revised GLUCOSE reference range effective 2017. LAB L501.1000 7-18 mg/dL Normal BUN 9 LAB L501.1100 0.55-1.02 mg/dL Low CREAT,SERUM 0.49 Result Comment: The validity of the calculated GFR AND GFRAA in patients over 70 years has not been determined. Clinical correlation is essential. LAB L501.1110 >60 mL/min Normal EST GFR 132 Result Comment: Non- GFR Calc LAB L501.1115 >60 mL/min Normal EST GFR - AA 160 Result Comment: GFR Calc LAB L501.1255 ml/min Normal Estimated CRCL 40.07 LAB L501.1300 10-20 RATIO Normal BUN/CRE 18.3 LAB L501.2200 8.5-10 mg/dL Normal .1 CA 8.8 LAB L501.5300 136-14 mmol/L Normal 5 NA 136 LAB L501.5600 3.5-5. mmol/L Normal 1 K 4.2 LAB L501.5900 98-107 mmol/L Normal CL 103 LAB L501.6100 21.0-3 mmol/L Normal 2.0 CO2 26.0 LAB L501.6200 5-15 Normal GAP 7 Performed By: #### L500.2500 #### [facility] [address] [facility] [address] [place], [place], [address] PARTIAL THROMBOPLAST Collected: 10/14/2017 Status: F Source: [place] TIME 4:50 AM [facility] [place] [facility] TYPE CODE TESTS RESULT OUT OF REFERENCE UNITS RANGE LAB L300.4310 24.1-36.2 Seconds High PTT 68.9 Performed By: #### L300.4310 #### [facility] [address] [place], [address] PROTHROMBIN TIME W/INR Collected: 10/14/2017 Status: F Source: [place] 4:50 AM [facility] [place] [facility] TYPE CODE TESTS RESULT OUT OF RANGE REFERENCE UNITS LAB L300.4150 11.7-14.9 SECONDS High PROTIME 18.6 LAB L300.4200 Normal INR 1.6 Performed By: #### L300.3900 #### [facility] [address] [place], [address] PARTIAL THROMBOPLAST Collected: 10/13/2017 Status: F Source: [place] TIME 10:40 PM [facility] [place] [facility] TYPE CODE TESTS RESULT OUT OF REFERENCE UNITS RANGE LAB L300.4310 24.1-36.2 Seconds High PTT 87.0 Performed By: #### L300.4310 #### [facility] [address] [place], [address] BEDSIDE GLUCOSE Collected: 10/13/2017 Status: F Source: [place] 9:29 PM [facility] [place] [facility] TYPE CODE TESTS RESULT OUT OF REFERENCE UNITS RANGE LAB L501.080 70-110 mg/dL High BEDSIDE GLU 245 Result Comment: MANAGEMENT OF PATIENT CARE PER NURSING PROTOCOL Performed By: #### L501.080 #### [facility] Point of Care [address] [place] [address] BEDSIDE GLUCOSE Collected: 10/13/2017 Status: F Source: [place] 5:20 PM [facility] [place] [facility] TYPE CODE TESTS RESULT OUT OF REFERENCE UNITS RANGE LAB L501.080 70-110 mg/dL High BEDSIDE GLU 228 Result Comment: MANAGEMENT OF PATIENT CARE PER NURSING PROTOCOL Performed By: #### L501.080 #### [facility] Point of Care [address] [place] [address] PARTIAL THROMBOPLAST Collected: 10/13/2017 Status: F Source: [place] TIME 4:15 PM [facility] [place] [facility] TYPE CODE TESTS RESULT OUT OF REFERENCE UNITS RANGE LAB L300.4310 24.1-36.2 Seconds High alert PTT 126.8 Result Comment: CRITICAL VALUE VERIFIED. CALLED TO ARABELLA 10/13/17 Jenae Jefferson. RESULTS READ BACK BY SAME . Performed By: #### L300.4310 #### [facility] [address] [place], [address] 12 LEAD ELECTROCARDIOGRAM Observed: 10/13/2017 Status: F Source: [place] 2:13 PM [facility] [place] [facility] Cardiovascular Services [address] [facility] [place] [address] 12 Lead EKG 10/11/172007 MR#: [id number] Acct: [id number] Name: MACIEL BUCIO Rep #: [id number] : 1950 67 From: Danilo Holt MD Attending Dr: Rafa Breaux MD Status: ADM IN Ordering Dr: Franco Buckner MD Date: 10/11/17 Location: ICU Sex: F C Admitted: 10/11/17 Test Reason : FEVER Blood Pressure : / mmHG Vent. Rate : 105 BPM Atrial Rate : 105 BPM P-R Int : 156 ms QRS Dur : 104 ms QT Int : 348 ms P-R-T Axes : 057 -27 083 degrees QTc Int : 459 ms Sinus tachycardia with occasional Premature ventricular complexes Inferior infarct , age undetermined Abnormal ECG Confirmed by JONATHON RAMOS, DANILO ([id number]), sound editor LINDA RICHARDSON ([id number]) on 10/13/2017 2:13:01 PM Referred By: LEVI Confirmed By:DANILO HOLT MD 10/13/17 1413 Date Danilo Holt MD CC: Jessica Hardy MD; Franco Buckner MD Signed CONSULTATION Observed: 10/13/2017 Status: F Source: [place] 12:46 PM [facility] [place] [facility] Medical Records Department [address] [place] [address] Consultation 10/13/17 1230 MR#: [id number] Acct: [id number] Name: MACIEL BUCIO Rep #: [id number] : 1950 67 From: Sixto Beltran MD PCP: Jessica Hardy MD Status: ADM IN Y Location: ICU ICU-1 Problem List (1) Atrial fibrillation Status: Acute (2) Bioprosthetic mitral valve replacement, current hospitalization Status: Acute (3) Bacteremia Status: Acute Reason for Consult Date of Consultation: 10/13/17 Reason for Consultation: Atrial fibrillation, status post mitral valve replacement, bacteremia History of Present Illness: The patient is a 67 year old F, patient of Dr. Gerardo'francisco, with a history of hypertension, diabetes, quit tobacco about 50 years ago, no previous known atrial fibrillation, who underwent mitral valve replacement utilizing a #31 mm [place] mechanical prosthesis at [facility] on 09/29/01. She had no concomitant bypass surgery or stenting in the past. Prior to that she underwent catheterization in 2001 which showed no significant coronary disease and relatively normal pulmonary pressures. She has been seeing Dr. Gerardo regularly, last seen in the office on 01/22/17. At that time she was doing well without any difficulties. She is on lifelong Coumadin therapy as well as atenolol for heart rate and blood pressure control. Over the month of September she developed what appears to be an upper respiratory tract infection and has not felt well most recently over the last 2 weeks. She complained of urinary frequency and urgency, but no dysuria. She also had subjective fevers at home but did not take her temperature over the last 2 weeks. On the day of admission the patient had mental status changes as well as confusion and does not recall how she got to the hospital. She was found to be hypotensive, bacteremic, and atrial fibrillation with rapid ventricular response. Patient was treated with empiric antibiotics and started on IV amiodarone drip for heart rate and rhythm control. Since initiating the amiodarone drip she has converted back to normal sinus rhythm. She reports she is compliant with her medications and is now feeling much better. Echocardiogram is now pending. She had 2 out of 2 bottles positive for group C strep on 10/11/17, with repeat blood cultures pending. Patient denied any syncope, presyncope, lightheadedness, dizziness, chest pain or angina.. [] Past Medical History Allergies/Adverse Reactions: Allergies Calcium Channel Blocking Agent Dilt [Calcium Channel Blocking Agents-Win] Allergy (Verified 10/11/17 19:48) Rash Home Medications: Ambulatory Orders Medication Instructions Recorded Atenolol [Tenormin] 50 mg PO DAILY 07/10/13 Gemfibrozil [Lopid] 600 mg PO BIDAC 07/10/13 Lisinopril [Zestril] 10 mg PO DAILY 07/10/13 Metformin HCl [Glucophage] 500 mg PO BIDCM 07/10/13 Surgical History: no surgical history - *Family History Maternal History Items: No pertinent history Smoking Status: Former smoker Review of Systems - Review of Systems General: Reports: Fever, Malaise, Chills, Weakness Cardiovascular: Denies: Chest Discomfort, Shortness of Breath, Orthopnea, PND, Peripheral Edema, Palpitations, Lightheadedness, Dizziness, Near Syncope, Syncope Respiratory: Denies: Cough, Sputum Production, Hemoptysis Gastrointestinal: Denies: Hematemesis, Hematochezia, Melena Genitourinary: Denies: Dysuria, Hematuria Skin: Denies: Rash Subjectve: Patient laying in bed, no acute distress. Answers questions appropriately. Objective: Vital Signs Temp Pulse Resp BP Pulse Ox 99.2 F H 83 22 H 101/59 L 99 10/13/17 12:00 10/13/17 12:00 10/13/17 12:00 10/13/17 12:00 10/13/17 12:00 Oxygen Flow Rate 1 Oxygen Delivery Method Room Air Weight: 133 lb 2.547 oz Body Mass Index (BMI) 24.3 Intake and Output for Last 24 Hours Intake Total 6747 / 6747 2675 / 2675 Output Total 4650 / 4650 2400 / 2400 Balance 2097 / 2097 275 / 275 General: Awake, Alert, Oriented x 3 HEENT: PERRL, EOMI, Sclera Non Icteric Neck: Supple, Good ROM, No Lymph Node Enlargement Lungs: Clear to auscultation Cardiovascular: Regular Rhythm, Normal S1, Normal S2, No Rubs, No Gallops, Breckinridge Prosthetic S1, Breck[place]ridge Prosthetic S2 Vascular: No Carotid Bruits, Normal Femoral Pulses, Normal Radial Pulses, Normal Dorsalis Pedal Pulse, Normal Posterior Tibial Pulses Abdomen: Bowel Sounds Present, Soft, Non Tender, No HSM, No Organomegaly Extremities: No Cyanosis, No Clubbing, No edema Neurological: No Focal Motor or Sensory Deficit 10/13/17 04:15: WBC 5.2, RBC 3.10 L, Hgb 9.0 L, Hct 27.7 L, MCV 89.4, MCH 29.0, MCHC 32.5, RDW 14.6, RDW Differential 47.9 H, Plt Count 172, MPV 10.4 10/13/17 04:15: PT 22.1 H, INR 2.0 10/13/17 04:15: Sodium 139, Potassium 3.5, Chloride 110 H, Carbon Dioxide 21.0, Anion Gap 8, BUN 10, Creatinine 0.37 L, Est GFR (MDRD) Af Amer 221, Est GFR (MDRD) Non-Af 183, BUN/Creatinine Ratio 26.9 H, Glucose 185 H, Calcium 7.3 L, Magnesium 1.4 L 10/13/17 10:15: APTT 110.6 H* 10/13/17 11:10: APTT 83.6 H Rhythm: EKG: Normal sinus rhythm, no acute changes. ECHO: Pending. Stress Test: Cardiac Cath: PCI: CT Surgery: Holter monitor: EPS: PPM: CXR: Chest CT Scan: Assessment/Plan 1. Mitral valve replacement: The patient has a prosthetic mitral valve, and has no outward signs of endocarditis that I can tell. She does have 2 blood cultures that are positive for strep, and I believe it is reasonable to pursue a transesophageal echocardiogram tomorrow to interrogate her mitral valve as well as her other valves to determine if she has any possible bacterial endocarditis. She is responded very well to IV antibiotic therapy relatively quickly, and her atrial fibrillation has converted back to sinus rhythm. Given her prosthetic mitral valve she requires an INR between 2.5 and 3.5, and would recommend IV heparin drip until her INR has improved above 2.0. 2. Atrial fibrillation: Patient is converted back from atrial flutter relation to normal sinus rhythm. She is on IV amiodarone at this time. Would recommend 24 hours of IV amiodarone. Her echocardiogram is pending and recently showed normal LV function. She remains in normal rhythm, we can discontinue her IV amiodarone tomorrow. Recommend keeping her potassium above 4.0, and magnesium of 2.0 to facilitate normal sinus rhythm. 3. Discussed with Dr. Luevano. Thank you very much for the opportunity to put dissipate in the cardiac care of your patient. Consultation time took place between 1115 and 11:45 AM. Code Visit Inpatient Elen PRINCE M: [id number] Init Hosp L2 10/13/17 1246 <Electronically signed by Sixto Beltran MD> Date Sixto Beltran MD Cosigner Signature (if applicable): Date CC: Donnie Luevano D.O.; Jessica Hardy MD; Wesley Gerardo MD; Talib Sanchez MD Signed BEDSIDE GLUCOSE Collected: 10/13/2017 Status: F Source: 11:49 AM [facility] [place] TYPE CODE TESTS RESULT OUT OF REFERENCE UNITS RANGE LAB L501.080 70-110 mg/dL High BEDSIDE GLU 328 Result Comment: MANAGEMENT OF PATIENT CARE PER NURSING PROTOCOL Performed By: #### L501.080 #### [facility] Point of Care [address] [place], [place] [id number] PARTIAL THROMBOPLAST Collected: 10/13/2017 Status: F Source: [place] TIME 11:10 AM [facility] [place] TYPE CODE TESTS RESULT OUT OF REFERENCE UNITS RANGE LAB L300.4310 24.1-36.2 Seconds High PTT 83.6 Performed By: #### L300.4310 #### [facility] [address] [place], [place], [address] PARTIAL THROMBOPLAST Collected: 10/13/2017 Status: F Source: [place] TIME 10:15 AM [facility] [place] Order Comment: PER ANNABELLE BRAVO MEDICATION WAS NOT STOPPED THERE WILL BE A REDRAW TYPE CODE TESTS RESULT OUT OF REFERENCE UNITS RANGE LAB L300.4310 24.1-36.2 Seconds High alert PTT 110.6 Performed By: #### L300.4310 #### [facility] [address] [place], [address] BEDSIDE GLUCOSE Collected: 10/13/2017 Status: F Source: [place] 7:48 AM [facility] [place] TYPE CODE TESTS RESULT OUT OF REFERENCE UNITS RANGE LAB L501.080 70-110 mg/dL High BEDSIDE GLU 225 Result Comment: MANAGEMENT OF PATIENT CARE PER NURSING PROTOCOL Performed By: #### L501.080 #### [facility] Point of Care [address] [place] [address] CBC-COMPLETE BLOOD CNT Collected: 10/13/2017 Status: F Source: [place] NO DIFF 4:15 AM [facility] [place] TYPE CODE TESTS RESULT OUT OF RANGE REFERENCE UNITS LAB L100.1000 4.4-11.0 K/mm3 Normal WBC 5.2 LAB L100.1200 4.2-5.4 M/mm3 Low RBC 3.10 LAB L100.1300 12.0-15.0 g/dl Low HGB 9.0 LAB L100.1400 37-47 % Low HCT 27.7 LAB L100.1500 81-99 fL Normal MCV 89.4 LAB L100.1600 27.0-32.0 pg Normal MCH 29.0 LAB L100.1700 32-36 g/gl Normal MCHC 32.5 LAB L100.1810 11.6-14.6 % Normal RDW CV 14.6 LAB L100.1820 35.1-43.9 fl High RDW SD 47.9 LAB L100.1900 150-450 K/mm3 Normal PLT 172 LAB L100.2000 6.2-12.0 fl Normal MPV 10.4 Performed By: #### L100.0500 #### [facility] [address] [place], [place], [address] BASIC METABOLIC Collected: 10/13/2017 Status: F Source: [place] PROFILE (BMP) 4:15 AM [facility] [place] TYPE CODE TESTS RESULT OUT OF RANGE REFERENCE UNITS LAB L501.0100 74-106 mg/dL High GLU 185 Result Comment: Fasting Glucose result greater than or equal to 126 mg/dL suggests DIABETES MELLITUS per A.D.A. criteria. Please note revised GLUCOSE reference range effective 2017. LAB L501.1000 7-18 mg/dL Normal BUN 10 LAB L501.1100 0.55-1.02 mg/dL Low CREAT,SERUM 0.37 Result Comment: The validity of the calculated GFR AND GFRAA in patients over 70 years has not been determined. Clinical correlation is essential. LAB L501.1110 >60 mL/min Normal EST GFR 183 Result Comment: Non- GFR Calc LAB L501.1115 >60 mL/min Normal EST GFR - AA 221 Result Comment: GFR Calc LAB L501.1255 ml/min Normal Estimated CRCL 40.07 LAB L501.1300 10-20 RATIO High BUN/CRE 26.9 LAB L501.2200 8.5-10 mg/dL Low .1 CA 7.3 LAB L501.5300 136-14 mmol/L Normal 5 NA 139 LAB L501.5600 3.5-5. mmol/L Normal 1 K 3.5 LAB L501.5900 98-107 mmol/L High CL 110 LAB L501.6100 21.0-3 mmol/L Normal 2.0 CO2 21.0 LAB L501.6200 5-15 Normal GAP 8 Performed By: #### L500.2500, L501.5200 #### [facility] [address] [place], [place], [id number] MAGNESIUM Collected: 10/13/2017 Status: F Source: [place] 4:15 AM [facility] [place] TYPE CODE TESTS RESULT OUT OF RANGE REFERENCE UNITS LAB L501.5200 1.6-2.6 mg/dL Low MG 1.4 Result Comment: Please note revised Magnesium reference range effective 2017. Performed By: #### L500.2500, L501.5200 #### [facility] [address] [place], [place], [id number] PROTHROMBIN TIME W/INR Collected: 10/13/2017 Status: F Source: [place] 4:15 AM [facility] [place] TYPE CODE TESTS RESULT OUT OF RANGE REFERENCE UNITS LAB L300.4150 11.7-14.9 SECONDS High PROTIME 22.1 LAB L300.4200 Normal INR 2.0 Performed By: #### L300.3900 #### [facility] [address] [place], [address] BEDSIDE GLUCOSE Collected: 10/12/2017 Status: F Source: [place] 9:40 PM [facility] [place] TYPE CODE TESTS RESULT OUT OF REFERENCE UNITS RANGE LAB L501.080 70-110 mg/dL High BEDSIDE GLU 217 Result Comment: MANAGEMENT OF PATIENT CARE PER NURSING PROTOCOL Performed By: #### L501.080 #### [facility] Point of Care [address] [place] [address] BEDSIDE GLUCOSE Collected: 10/12/2017 Status: F Source: [place] 4:19 PM [facility] [place] TYPE CODE TESTS RESULT OUT OF REFERENCE UNITS RANGE LAB L501.080 70-110 mg/dL High BEDSIDE GLU 203 Result Comment: MANAGEMENT OF PATIENT CARE PER NURSING PROTOCOL Performed By: #### L501.080 #### [facility] Point of Care [address] [place] [address] ECHOCARDIOGRAM COMPLETE Observed: 10/12/2017 Status: F Source: [place] 2:05 PM [facility] [place] [facility] Cardi[facility] Services [address] [place] [address] Echo Complete 10/12/17 1153 MR#: [id number] Acct: [id number] Name: MACIEL BUCIO Rep #: [id number] : 1950 67 From: Danilo Holt MD Attending Dr: Rafa Breaux MD Status: ADM IN Ordering Dr: Donnie Luevano DO Date: 10/12/17 Location: ICU Sex: F C Admitted: 10/11/17 Reason For Study: MURMUR Procedure This was a 2D Doppler, Color Flow transthoracic echocardiogram. Exam performed portable in ICU/CCU. Left Ventricle Normal LV size. Left ventricular systolic function is normal. The estimated ejection fraction is 60 %. No evidence for diastolic dysfunction. No regional wall motion abnormalities noted. Right Ventricle Normal RV size. Normal systolic function. Atria Normal left atrium. Normal right atrium. Mitral Valve Stable appearing mechanical mitral valve apparatus. Tricuspid Valve Normal tricuspid valve. Mild (1+) tricuspid valve insufficiency. Pulmonary artery systolic pressure is 37 mmHg. Aortic Valve Trisinus/trileaflet aortic valve. Peak aortic valve gradient 27 mmHg. Mean aortic valve gradient 16 mmHg. Mild aortic stenosis. Pulmonic Valve Normal pulmonic valve. Great Vessels Normal aortic root. The pulmonary artery is normal size. Normal inferior vena cava. Pericardium/Pleural No pericardial effusion. MMode/2D Measurements AND Calculations LVIDd: 4.8 cm IVSd: 1.0 cm LVOT diam: 1.9 cm LVIDs: 3.4 cm LVPWd: 1.2 cm LVOT area: 2.8 cm2 RVDd: 2.6 cm FS: 28.3 % Ao root diam: 3.3 cm LAV(MOD-sp4): 61.0 ml EDV(MOD-sp4): 82.8 ml LA dimension: 4.5 cm ESV(MOD-sp4): 29.8 ml EF(MOD-sp4): 64.0 % EDV(MOD-sp2): 64.3 ml SV(MOD-sp4): 53.0 ml SV(MOD-sp2): 44.4 ml EF(MOD-sp2): 69.1 % Aortic Valve Planimetry: 1.2 cm2 LA A4 area: 20.9 cm2 RA A4 area: 15.7 cm2 Doppler Measurements AND Calculations MV E max lisa: 154.3 cm/sec MV V2 max: 171.0 cm/sec Ao V2 max: 262.4 cm/sec MV A max lisa: 71.3 cm/sec MV max P.7 mmHg Ao max P.5 mmHg MV E/A: 2.2 MV V2 mean: 98.5 cm/sec Ao V2 mean: 183.7 cm/sec MV mean P.5 mmHg Ao mean P.4 mmHg MV V2 VTI: 30.7 cm Ao V2 VTI: 45.2 cm MVA(VTI): 1.9 cm2 HAKEEM(I,D): 1.3 cm2 HAKEEM(V,D): 1.2 cm2 LV V1 max: 108.8 cm/sec SV(LVOT): 57.7 ml PA V2 max: 119.0 cm/sec LV V1 max P.7 mmHg LV V1 mean P.5 mmHg LV V1 mean: 73.9 cm/sec LV V1 VTI: 20.7 cm PI end-d lisa: 107.5 cm/sec TR max lisa: 284.3 cm/sec TR max P.3 mmHg Interpretation Summary Normal LV size. Left ventricular systolic function is normal. The estimated ejection fraction is 60 %. Mean aortic valve gradient 16 mmHg. Stable appearing mechanical mitral valve apparatus. Compared to prior study, there is no significant change. Ordering Physician: Donnie Luevano D.O. Referring Physician: Jessica Hardy Performed By: Maru Amos, RDCS, RVT 10/12/17 140 Date Danilo Holt MD CC: Donnie Luevano D.O.; Jessica Hardy MD Date Dictated: 10/12/17 1153 Date Transcribed: 10/12/171404 Programmer Developer: Signed VANCOMYCIN, TROUGH Collected: 10/12/2017 Status: F Source: [place] LEVEL 1:25 PM [facility] [place] Order Comment: Time Medication is to be Given? 1300 TYPE CODE TESTS RESULT OUT OF REFERENCE UNITS RANGE LAB L501.8820 5.0-15.0 ug/mL Low VANCO, TROUGH 4.3 Result Comment: VANCOMYCIN STANDARED DRUG THERAPY TROUGH LEVEL: 5.0 - 15.0 mg/L VANCOMYCIN HIGH INTENSITY THERAPY TROUGH LEVEL: 15.0 - 20.0 mg/L High Intensity therapy recommended for serious life threatening infections include: - Meningitis -Endocarditis -Pneumonia (Ventilator/Healtcare Associated) -Sepsis PLEASE CONTACT PHARMACY SERVICES (#[id number]) FOR INTERPRETATION OF RESULTS. Performed By: #### L501.8820 #### [facility] [address] [place], [address] CONSULTATION Observed: 10/12/2017 Status: F Source: [place] 11:56 AM [facility] [place] [facility] Medical Records Department [address] [place] [address] Consultation 10/12/17 0633 MR#: [id number] Acct: [id number] Name: MACIEL BUCIO Rep #: [id number] : 1950 67 From: Donnie Luevano DO PCP: Jessica Hardy MD Status: ADM IN Y Location: ICU ICU04-1 Reason for Consult Date of Consultation: 10/12/17 Reason for Consultation: Altered mental status History of Present Illness: The patient is a 67-year-old female, with a history as outlined below, presented to the emergency department on October 11 with altered mentation of 2-3 days duration. Per documentation in the emergency department, the patient was too incoherent to obtain a thorough history. However, as of this morning, the patient is alert and appropriately interactive. She states that she has been ill for the entire month of September with URI symptoms, including rhinorrhea, nasal congestion and cough. She states that she was too afraid to see a doctor, as each time she is placed on antibiotics it interferes with her Coumadin. Over the last 48-72 hours, the patient's symptoms have increased and she became febrile. She also reports feeling confused. She is did sustain a mechanical fall in her home approximately 4 days ago, which led to facial contusions. The patient reports that she has a history of falls and is oftentimes clumsy and uneasy on her feet. She does have a mechanical mitral valve in place, for which she is anticoagulated on Coumadin. She denies a history of alcohol or drug abuse. She denies tobacco abuse. She currently resides with her son. The patient's primary care provider is Dr. Hardy. She reports no known sick contact exposure. She states that she has a history of irritable bowel syndrome and does have intermittent bouts of diarrhea. She does report a history of a mild degree of dysuria and increased urinary frequency. On presentation to the emergency department, the patient was noted to be febrile with a temperature of 103 F. She was tachycardic and hemodynamically stable. She was maintaining appropriate oxygen saturations on room air. Laboratory evaluation revealed no evidence of a leukocytosis. INR was noted to be 2.8. Chemistry profile was largely unremarkable. Urinalysis was unrevealing for the presence of an infection. MRSA screen was negative. CT had revealed chronic involutional changes without acute findings. Prior echocardiogram from January 2016 revealed normal LV size and function with an ejection fraction of 60%. There was a stable appearing [place] prosthetic mitral valve in place. Right ventricular systolic pressure was estimated to be 31 mmHg. Past Medical History Allergies Calcium Channel Blocking Agent Dilt [Calcium Channel Blocking Agents-Win] Allergy (Verified 10/11/17 19:48) Rash Home Medications: Ambulatory Orders Medication Instructions Recorded Atenolol [Tenormin] 50 mg PO DAILY 07/10/13 Gemfibrozil [Lopid] 600 mg PO BIDAC 07/10/13 Lisinopril [Zestril] 10 mg PO DAILY 07/10/13 Metformin HCl [Glucophage] 500 mg PO BIDCM 07/10/13 Surgical History: no surgical history Smoking Status: Former smoker - *Family History Maternal History Items: No pertinent history Review of Systems Constitutional: Reports: Chills, Fever Eyes: Denies: Blurred vision, Double vision HEENT: Reports: Nasal Congestion, Sinus Drainage Cardiovascular: Denies: Chest Pain, Palpitations Respiratory: Reports: Cough. Denies: Shortness of Breath, Sputum production Gastrointestinal: Reports: Diarrhea. Denies: Abdominal Pain, Nausea, Vomiting Genitourinary: Reports: Dysuria, Frequency Musculoskeletal: Denies: Joint Pain, Joint Tenderness Skin: Denies: Rash, Wounds Neurological: Reports: Balance problems Psychiatric: Denies: Anxiety, Depression, Homicidal Ideations, Suicidal Ideations Hematologic/ Lymphatic: Reports: Easy Bruising Patient Problems: Active and Suspected Problems Bacteremia (Acute) Objective: The patient's most recent lab work, culture data and imaging studies have all been personally reviewed. Respiratory viral panel, blood and urine cultures are pending. - Physical Exam General: Alert, Oriented x3, Cooperative, No apparent distress HEENT: PERRLA, Normocephalic, - - Left facial ecchymoses present Oral: Moist Mucosa, No Gingival or Mucosal Lesions/ Ulcerations, - - Poor dentition Neck: Supple, No Nodes, Trachea Midline Lungs: Normal air movement, No rhonchi, No wheeze, No rales Cardiovascular: Regular rate, Regular Rhythm, Normal S1, Normal S2, Murmur, - - Systolic click Abdomen: Bowel Sounds Present, Soft, Non Tender Extremities: No clubbing, No cyanosis, No edema Skin: - - Facial ecchymoses as noted above Musculoskeletal: No Tenderness to Palpation of Joints or Extremities Lymphatic: No Cervical, Supraclavicular, or Inguinal Adenopathy Neurological: Neuro grossly intact Psych/Mental Status: Normal Affect, Appropriate Vital Signs Temp Pulse Resp BP Pulse Ox 100.7 F H 82 27 H 94/46 L 96 10/12/17 06:00 10/12/17 06:00 10/12/17 06:00 10/12/17 06:00 10/12/17 06:00 Oxygen Flow Rate 1 Oxygen Delivery Method Room Air Weight: 131 lb 2.801 oz Body Mass Index (BMI) 24.3 Intake and Output for Last 24 Hours Intake Total 2880 / 2880 Output Total 1150 / 1150 Balance 1730 / 1730 Laboratory Tests Past 24 Hrs WBC 7.4 RBC 3.56 L Hgb 10.6 L Hct 31.9 L MCV 89.6 MCH 29.8 MCHC 33.2 RDW 14.4 RDW Differential 46.0 H Clinical Impression(s) from Imaging Studies Chest X-Ray 10/11/17 20:10 IMPRESSION: There are no acute findings. Electronically Signed: Dequan Carrillo MD at 20:38 EST , Service support , ADDENDUM: 10/11/172045 IMPRESSION: There are no acute findings. Electronically Signed: Dequan Carrillo MD at 20:39 EST , Service support , Brain CT 10/11/17 20:55 IMPRESSION: Chronic involutional changes of the brain. There are no acute findings. Electronically Signed: Dequan Carrillo MD at 21:40 EST , Service support , Assessment/Plan Active and Suspected Problems Bacteremia (Acute) RECOMMENDATIONS: 1. Send urine toxicology screen. Check serum TSH level. 2. Hold Coumadin for now. Start DVT prophylaxis with subcu heparin. Monitor INR daily. 3. Potassium repletion. Check serum magnesium level. 4. Continue broad-spectrum antibiotics, pending infectious workup 5. Given the patient's high-grade fevers, will obtain echocardiogram given prosthetic mitral valve history and positive blood cultures 6. Check full respiratory viral panel 7. Hold metformin and start sliding scale insulin coverage 8. Send repeat blood cultures tomorrow IMPRESSIONS: 1. Sepsis 2/2 Gram Positive Bacteremia The patient is currently being maintained on appropriate antibiotics. She has been adequately volume resuscitated at this time. Supplemental IV fluids can be discontinued, pending improvement in the patient's p.o. intake. Given that the patient has a prosthetic mitral valve in place, will obtain surface echocardiogram, given positive blood cultures. Resend blood cultures tomorrow. Infectious diseases consultation is pending. 2. Transient infectious encephalopathy/delirium Likely secondary to #1. However, we will also send toxicology screen and check TSH. A full respiratory viral panel will also be sent. 3. Hypokalemia/hypomagnesemia Electrolyte repletion is underway. Recheck levels in the morning. 4. History of Recurrent Mechanical Falls Recommend formal PT/OT evaluations, once medically stable. 5. History of mechanical mitral valve replacement/hypertension/hyperlipidemia/diabetes Complicates care, management, recovery and prognosis. Hold antihypertensive medications at this time. Discontinue metformin and initiate patient on sliding scale insulin coverage. Hold Coumadin at this time and check INR daily. This note was generated with [employer] dictation software. It may contain incorrect words, spelling, and punctuation that were not noted in checking the note before signing. Code Visit Inpatient E AND M: [id number] Init Hosp L3 10/12/17 1156 <Electronically signed by Donnie Luevano DO> Date Donnie Luevano DO Cosigner Signature (if applicable): Date CC: Donnie Luevano D.O.; Jessica Hardy MD; Talib Sanchez MD Signed Observed: 10/12/2017 Status: F Source: [place] CULTURE, BLOOD (WB) 11:45 AM [facility] [place] BC No growth in 5 days. Performed By: #### M200.1000 #### [facility] [address] [place], [address] BEDSIDE GLUCOSE Collected: 10/12/2017 Status: F Source: [place] 11:43 AM [facility] [place] TYPE CODE TESTS RESULT OUT OF REFERENCE UNITS RANGE LAB L501.080 70-110 mg/dL High BEDSIDE GLU 211 Result Comment: MANAGEMENT OF PATIENT CARE PER NURSING PROTOCOL Performed By: #### L501.080 #### [facility] Point of Care [address] [place] [address] CONSULTATION Observed: 10/12/2017 Status: F Source: [place] 11:02 AM [facility] [place] [facility] Medical Records Department [address] [place] [address] Consultation 10/12/17 1054 MR#: [id number] Acct: [id number] Name: MACIEL BUCIO Rep #: [id number] : 1950 67 From: Talib Sanchez MD PCP: Jessica Hardy MD Status: ADM IN Y [facility] (1) Bacteremia Status: Acute Reason for Consult: (+) bcx Consulted by: Dr. Breaux History of Present Illness: The patient is a 67 year old F with h/o mech MVR in 2001 at [facility], no prior h/o endocarditis, who presented with several weeks of not feeling well. Last dental work was over the summer, and she takes amox as prophylaxis. No current dental problems. Had URI in August, took course of abx, and INR went over 8. For past 2-3 weeks, had some intermittent diffuse abd pain, mild in severity. No blood in stool. Reports normal colonoscopy about 6 years ago and negative guaiac panel since then. Reports some pain with sitting, but this and abd pain have since resolved. Noticed increasing chills over the past week and some increased urine frequency. No dysuria. Only utis in the past have been with christiansen placement. Several days ago, tripped and fell at home, bruising her face. Continued to feel worse, so came to ED. Bcx sent, started on vanc and cefepime. Now Bcx with GPC in chains in both sets. No joint or back pain. Full ROS performed and neg except as noted above. - Medical History Allergies/Adverse Reactions: Allergies Calcium Channel Blocking Agent Dilt [Calcium Channel Blocking Agents-Win] Allergy (Verified 10/11/17 19:48) Rash Home Medications: Ambulatory Orders Medication Instructions Recorded Atenolol [Tenormin] 50 mg PO DAILY 07/10/13 Gemfibrozil [Lopid] 600 mg PO BIDAC 07/10/13 Lisinopril [Zestril] 10 mg PO DAILY 07/10/13 Metformin HCl [Glucophage] 500 mg PO BIDCM 07/10/13 - Social History SMOKING STATUS:: Former smoker Vital Signs Temp Pulse Resp BP Pulse Ox 102.2 F H 93 22 H 118/62 97 10/12/17 08:00 10/12/17 08:00 10/12/17 08:00 10/12/17 08:00 10/12/17 09:21 Oxygen Flow Rate 1 Oxygen Delivery Method Room Air Weight: 59.5 kg Body Mass Index (BMI) 24.3 Microbiology Past 72 Hours 10/12/17 06:50 Respiratory Panel (PCR) - Final Mucosa - Nose Laboratory Tests Past 24 Hrs WBC 7.4 RBC 3.56 L Hgb 10.6 L WBC RBC Hgb Hct MCV MCH MCHC RDW RDW Differential Plt Count MPV PT 26.7 H WBC RBC Hgb Hct MCV MCH MCHC RDW RDW Differential Plt Count MPV PT INR Sodium Potassium Chloride - Other Studies Radiology: [] reviewed Other Studies: [] Route of nutrition/ use of supplements: [] Nutritional Intake: [] IV Site: [] Christiansen Catheter: [] - Physical Exam General: Alert, Oriented x3, Cooperative, No apparent distress HEENT: Atraumatic, PERRLA, EOMI Neck: Supple, No Nodes Lungs: Clear to auscultation, Normal air movement Cardiovascular: Regular rate, Regular Rhythm, Murmur Abdomen: Bowel Sounds Present, Soft, Non Tender, Non-Distended Extremities: No edema Skin: No rashes, - - no janeway/osler/splinter hemorrhages on hands or feet. IV Site: Peripheral, without redness Musculoskeletal: No Tenderness to Palpation of Joints or Extremities - including spine Neurological: Cranial nerves II-XII grossly intact - Assessment/Plan Antibiotics: [] Assessment/Plan: [] Strep-like bacteremia with h/o mech MVR - given recent abd pain, possible GI source. No dental issues. Lungs and cxr are clear. Fever and tachycardia on presentation. Hypotension improved. Murmur present, but no other sign of endocarditis on exam. TTE pending. Will repeat bcx today. Cont vanc and cefepime. Thank you, will follow. 10/12/17 1102 <Electronically signed by Talib Sanchez MD> Date Talib Sanchez MD Cosigner Signature (if applicable): Date CC: Donnie Luevano D.O.; Jessica Hardy MD; Talib Sanchez MD Signed BEDSIDE GLUCOSE Collected: 10/12/2017 Status: F Source: [place] 8:03 AM [facility] [place] TYPE CODE TESTS RESULT OUT OF REFERENCE UNITS RANGE LAB L501.080 70-110 mg/dL High BEDSIDE GLU 127 Result Comment: MANAGEMENT OF PATIENT CARE PER NURSING PROTOCOL Performed By: #### L501.080 #### [facility] Point of Care [address] [place], [place] [id number] Observed: 10/12/2017 Status: F Source: [place] RESPIRATORY PANEL 6:50 AM [facility] [place] RP PANEL ADENOVIRUS Not Detected HUMAN METAPHNEUMO Not Detected INFLUENZA A Not Detected INFLUENZA A (SUBTYPE H1) Not Detected INFLUENZA A (SUBTYPE H3) Not Detected INFLUENZA B Not Detected PARAINFLUENZA 1 Not Detected PARAINFLUENZA 2 Not Detected PARAINFLUENZA 3 Not Detected PARAINFLUENZA 4 Not Detected RHINOVIRUS Not Detected RSV A Not Detected RSV B Not Detected NAAT METHOD Testing was performed using nucleic acid amplification Performed By: #### M100.638 #### [facility] [address] [place], [place], [address] URINE DRUG SCREEN Collected: 10/12/2017 Status: F Source: [place] (VISTA) 6:45 AM [facility] [place] Order Comment: RECOLLECT. PREVIOUS SPECIMEN REJECTED DUE TO WRONG TUBE COLLECTED. 10/12/17 0643 Jami Posey. List of Drugs Taken or Suspected? UNK TYPE CODE TESTS RESULT OUT OF RANGE REFERENCE UNITS LAB L505.0075 TO BE Normal CONFIRMED Result Comment: CONFIRMATORY TESTING FOR ALL POSITIVE URINE DRUG SCREEN RESULTS WILL ONLY BE SENT OUT UPON PHYSICIAN ORDER. VISTA Urine Drug Screen methods provide only preliminary analytical test results. A more specific alternate chemical method must be used in order to obtain a confirmed analytical result. Gas chromatography/mass spectrometery (GC/MS) is the preferred confirmatory method. Clinical consideration and professional judgement should be applied to any drug of abuse test result, particularly when preliminary positive results are used. URINE TCA TESTING MUST BE ORDERED SEPARATELY. USE TEST MNEMONIC: [facility] LAB L505.5005 VISTA UDS PH 6 Normal LAB L505.5015 <1000 ng/mL AMPHETAMINES Normal NEGATIVE LAB L505.5025 < 200 ng/mL BARBITIURATES Normal NEGATIVE LAB L505.5035 < 200 ng/mL BENZODIAZIPINE Normal NEGATIVE LAB L505.5045 < 300 ng/mL COCAINE Normal NEGATIVE LAB L505.5055 < 500 ng/mL ECSTACY Normal NEGATIVE LAB L505.5065 < 300 ng/mL METHADONE Normal NEGATIVE LAB L505.5075 < 300 ng/mL OPIATES Normal NEGATIVE LAB L505.5085 < 25 ng/mL PCP Normal NEGATIVE LAB L505.5095 < 50 ng/mL THC Normal NEGATIVE Performed By: #### L505.5000 #### [facility] [address] [place], [address] CHEST 1 VIEW Observed: 10/12/2017 Status: F Source: [place] (PORTABLE) 6:37 AM [facility] [place] [facility] Imaging Services [address] [place] [address] Chest 1 View (Portable) MR#: [id number] Acct: [id number] Name: MACIEL BUCIO Rep #: [id number] : 1950 F 67 From: Abelino Davenport MD PCP: Jessica Hardy MD Status: ADM IN Study: Chest 1 View (Portable) Date of Exam: 10/12/17 Exam# [id number] Ordering Dr: Donnie Luevano DO STUDY: X-RAY CHEST REASON FOR EXAM: Female, 67 years old. Shortness of breath and fever. TECHNIQUE: Single AP portable view of the chest. COMPARISON: Comparison is made with prior examination dated October 11, 2017. FINDINGS: EKG electrodes are seen. Stable elevation of the right hemidiaphragm. Mild increase in linear markings most likely chronic in nature. There has been essentially no change. There is no demonstrated pleural abnormality. Sternal cerclage wires and vascular clips are present from a prior sternotomy and coronary artery bypass graft procedure (CABG). Normal mediastinum and rahat. Normal visualized pulmonary arteries. There is atherosclerotic calcification of the aortic arch with tortuosity. There are degenerative changes of the visualized thoracic spine. Prior pinning of the fracture of the proximal left humerus with a marked degree of joint space narrowing of the left shoulder. There is no demonstrated abnormality of the visualized soft tissue structures of the upper abdomen. RAD/Chest 1 View (Portable) IMPRESSION: Stable examination. Electronically Signed: Abelino Davenport MD at 8:18 EST Tel [phone], Service support , CC: Donnie Luevano D.O.; Jessica Hardy MD Programmer Developer: Signed MAGNESIUM Collected: 10/12/2017 Status: F Source: [place] 4:50 AM [facility] [place] TYPE CODE TESTS RESULT OUT OF RANGE REFERENCE UNITS LAB L501.5200 1.6-2.6 mg/dL Low MG 1.4 Result Comment: Please note revised Magnesium reference range effective 2017. Performed By: #### L501.5200 #### [facility] [place], [address] BASIC METABOLIC Collected: 10/12/2017 Status: F Source: [place] PROFILE (BMP) 4:00 AM [facility] [place] TYPE CODE TESTS RESULT OUT OF RANGE REFERENCE UNITS LAB L501.0100 74-106 mg/dL High GLU 182 Result Comment: Fasting Glucose result greater than or equal to 126 mg/dL suggests DIABETES MELLITUS per A.D.A. criteria. Please note revised GLUCOSE reference range effective 2017. LAB L501.1000 7-18 mg/dL Normal BUN 13 LAB L501.1100 0.55-1.02 mg/dL Low CREAT,SERUM 0.44 Result Comment: The validity of the calculated GFR AND GFRAA in patients over 70 years has not been determined. Clinical correlation is essential. LAB L501.1110 >60 mL/min Normal EST GFR 152 Result Comment: Non- GFR Calc LAB L501.1115 >60 mL/min Normal EST GFR - AA 184 Result Comment: GFR Calc LAB L501.1255 ml/min Normal Estimated CRCL 40.07 LAB L501.1300 10-20 RATIO High BUN/CRE 29.9 LAB L501.2200 8.5-10 mg/dL Low .1 CA 8.0 LAB L501.5300 136-14 mmol/L Normal 5 NA 139 LAB L501.5600 3.5-5. mmol/L Low 1 K 3.0 LAB L501.5900 98-107 mmol/L Normal CL 106 LAB L501.6100 21.0-3 mmol/L Normal 2.0 CO2 22.0 LAB L501.6200 5-15 Normal GAP 11 Performed By: #### L500.2500, L100.0500 #### [facility] [place], [address] CBC-COMPLETE BLOOD CNT Collected: 10/12/2017 Status: F Source: [place] NO DIFF 4:00 AM [facility] [place] TYPE CODE TESTS RESULT OUT OF RANGE REFERENCE UNITS LAB L100.1000 4.4-11.0 K/mm3 Normal WBC 7.4 LAB L100.1200 4.2-5.4 M/mm3 Low RBC 3.56 LAB L100.1300 12.0-15.0 g/dl Low HGB 10.6 LAB L100.1400 37-47 % Low HCT 31.9 LAB L100.1500 81-99 fL Normal MCV 89.6 LAB L100.1600 27.0-32.0 pg Normal MCH 29.8 LAB L100.1700 32-36 g/gl Normal MCHC 33.2 LAB L100.1810 11.6-14.6 % Normal RDW CV 14.4 LAB L100.1820 35.1-43.9 fl High RDW SD 46.0 LAB L100.1900 150-450 K/mm3 Normal PLT 189 LAB L100.2000 6.2-12.0 fl Normal MPV 10.2 Performed By: #### L500.2500, L100.0500 #### [facility] [address] [place], [address] LACTIC ACID Collected: 10/12/2017 Status: F Source: [place] 4:00 AM [facility] [place] Order Comment: Yes/No query for Sepsis Lactate Rule Y TYPE CODE TESTS RESULT OUT OF RANGE REFERENCE UNITS LAB L503.6005 0.4-2.0 mmol/L Normal LACTIC ACID 0.8 Performed By: #### L503.6005 #### [facility] [place], [address] PROTHROMBIN TIME W/INR Collected: 10/12/2017 Status: F Source: [place] 4:00 AM [facility] [place] TYPE CODE TESTS RESULT OUT OF RANGE REFERENCE UNITS LAB L300.4150 11.7-14.9 SECONDS High PROTIME 26.7 LAB L300.4200 Normal INR 2.6 Performed By: #### L300.3900 #### [facility] [address] [place], [address] THYROID STIM HORMONE Collected: 10/12/2017 Status: F Source: [place] (TSH) 4:00 AM [facility] [place] TYPE CODE TESTS RESULT OUT OF RANGE REFERENCE UNITS LAB L501.9520 0.358-3.74 uIU/mL Normal TSH 0.44 Performed By: #### L501.9520 #### [facility] [address] [place], [address] M R STAPH AUREUS Collected: 10/12/2017 Status: F Source: [place] DNA BY PCR 12:30 AM [facility] [place] TYPE CODE TESTS RESULT OUT OF RANGE REFERENCE UNITS LAB L8200.1100 Negative Normal MRSA Negative RESULT Performed By: #### L8200.1000 #### [facility] [address] [place], [address] HISTORY AND PHYSICAL Observed: 10/11/2017 Status: F Source: [place] EXAM 11:44 PM [facility] [place] [facility] Medical Records Department [address] [place] [address] History and Physical 10/11/17 2334 MR#: [id number] Acct: [id number] Name: MACIEL BUCIO Rep #: [id number] : 1950 67 From: Wesley Serna MD PCP: Jessica Hardy MD Status: PRE ER Y Location: ED Problem List (1) SIRS (systemic inflammatory response syndrome) Status: Acute History of Present Illness Date of Admission: 10/11/17 Chief Complaint: confusion, febrile illness The patient is a 67 year old female patient who was found by her son to be confused. She had a fall in the garage injuring her face on Wednesday. She states she has been getting worse over the past two weeks. She has been afraid to seek medical care for fear of starting antibiotics and disrupting her Coumadin management. The patient presented with confusion and was a relatively poor historian with a fever of 105 and hypotension. Her initial WBC count is normal however, she does have a left shift. Initial lactate level is normal. Due to mental status changes along with a fever and an unknown source the patient will be admitted to the ICU for further evaluation. Past Medical History Allergies Calcium Channel Blocking Agent Dilt [Calcium Channel Blocking Agents-Win] Allergy (Verified 10/11/17 19:48) Rash Home Medications: Ambulatory Orders Medication Instructions Recorded Atenolol [Tenormin] 50 mg PO DAILY 07/10/13 Gemfibrozil [Lopid] 600 mg PO BIDAC 07/10/13 Lisinopril [Zestril] 10 mg PO DAILY 07/10/13 Metformin HCl [Glucophage] 500 mg PO BIDCM 07/10/13 Surgical History: no surgical history Smoking Status: Former smoker - *Family History Maternal History Items: No pertinent history Review of Systems Constitutional: Reports: Chills, Fever, Weakness. Denies: Weight Change HEENT: Denies: Head Aches, Sinus Congestion, Sinus Drainage Cardiovascular: Denies: Chest Pain, Palpitations Respiratory: Denies: Cough, Shortness of breath at rest, Sputum production Gastrointestinal: Denies: Abdominal Pain, Nausea, Vomiting Genitourinary: Denies: Dysuria Musculoskeletal: Denies: Joint Pain, Joint Tenderness Skin: Denies: Rash, Wounds Neurological: Reports: Confusion. Denies: Focal weakness, Numbness, Tingling Psychiatric: Denies: Anxiety, Depression, Homicidal Ideations, Suicidal Ideations Hematologic/ Lymphatic: Denies: Easy Bruising, Easy Bleeding VTE Information - Inpt Only VTE Present on Admission: No VTE Mechan Device Prophylaxis: None VTE Pharm Prophylaxis ordered?: Yes - Physical Exam General: Alert, Cooperative, Confused HEENT: Atraumatic, PERRLA, EOMI, Normocephalic Neck: Supple Lungs: Clear to auscultation, Normal air movement Cardiovascular: Regular rate, Regular Rhythm, Normal S1, Normal S2 Abdomen: Bowel Sounds Present, Soft, Non Tender Extremities: No edema, Capillary Refill Less than 3 Seconds Skin: No rashes Musculoskeletal: No Tenderness to Palpation of Joints or Extremities Neurological: Neuro grossly intact Psych/Mental Status: Normal Affect, Appropriate Vital Signs Temp Pulse Resp BP Pulse Ox 101.0 F H 84 20 H 93/54 L 97 10/11/17 23:00 10/11/17 23:00 10/11/17 23:00 10/11/17 23:00 10/11/17 23:00 Oxygen Flow Rate 2 Oxygen Delivery Method Nasal Cannula Weight: 133 lb 13.129 oz Body Mass Index (BMI) 23.7 Laboratory Tests Past 24 Hrs WBC 8.9 RBC 4.17 L Hgb 12.3 Hct 37.0 MCV 88.7 WBC RBC Hgb Assessment/Plan Assessment - Acute mental status change - Febrile Illness - SIRS Plan - admit to ICU - Consult Dr Luevano for ICU management - Vancomycin and Rocephin for broad spectrum coverage - CBC, BMP, Lactate, INR in am - IV normal saline at 125cc/hour - continue routine home medications - urine tox screen - LMWH not needed due to therapeutic INR Code Visit Inpatient E AND M: [id number] Init Hosp L3 10/11/17 1855 <Electronically signed by Wesley Serna MD> Date Wesley Serna MD Cosigner Signature: Date (if applicable) CC: Jessica Hardy MD; Wesley Serna MD Signed EMERGENCY DEPARTMENT Observed: 10/11/2017 Status: F Source: [place] SUMMARY 10:37 PM [facility] [place] [facility] Medical Records Department [address] [place] [address] Emergency Department Summary 10/11/17 2230 MR#: [id number] Acct: [id number] Name: MACIEL BUCIO Rep #: [id number] : 1950 67 From: Franco Buckner MD PCP: Jessica Hardy MD Status: PRE ER - ER Visit Summary Date of Service: 10/11/17 Chief Complaint: Son called EMS because of confusion. History of Present Illness: The patient is a 67 F who appear was been confused for the past 2-3 days. Paramedics noted dark urine. She was unaware that she had a fever. She has minimal complaints. She is not a good informant since she is disoriented. She apparently had a fall on Wednesday striking a step in her garage. She sustained significant trauma with facial swelling over the left maxillary region and temporal region. She is on Coumadin secondary to prosthetic valve. Past history of type 2 diabetes and hypertension. Physical Examination: Patient is febrile with a document temperature 103, heart rate of 105 and respiratory 23. She has abnormal irregular breathing. She has significant trauma to the left side of her face. There is a large subcutaneous hematoma noted. There is no hemotympanum. There is no CSF otorrhea or rhinorrhea. Pupils equal round reactive. There is no loose dentition. There is no TMJ tenderness. Trach is midline. There is no stridor. Lungs revealed no wheeze, rales or rhonchi. Heart is rapid with a click noted secondary to prosthetic valve. Abdomen is soft nontender with no palpable stone mass and diminished bowel sounds. There is no tenderness along the dorsal or lumbar spine. She has equivocal flank pain on the left. Extremities are unremarkable with no evidence of trauma. Skin is remarkable for multiple bruises. She is not alert nor she oriented. Hernias 2 through 12 are intact. Motor and sensory intact. Did not assess gait not able to perform Sobo testing. Test Results: White count is 8.9 thousand with 89 segs and H AND H 12.0 and 37.0. INR is 2.8 with a PTT of 74.1. Urine is unremarkable. Chest x-ray is unremarkable with chronic changes. In my opinion the historian volume is limited which limits the interpretation of the x-ray. 5 panels marked for glucose of 211. CPK was obtained because of the dark colored urine and multiple bruises to evaluate for rhabdomyolysis. Her CPK is 139. Emergency Department Course and Treatment: Since patient is confused febrile tachycardic tachypnic sepsis workup was undertaken. Because of the history of head trauma and the fact is on Coumadin CT of the head was obtained. Treatment Plan: She received IV fluids per squad and received 1 g of Rocephin with presumption of urinary tract infection and the fact that she has been incontinent with a fever and dark-colored urine. I was informed at 20-20 that she was hypotensive. She will receive a 30 cc/kg bolus. She is now alert and oriented. By definition she has delirium. Since she is on Coumadin with an INR 2.8 and a PTT of 74.1 lumbar puncture is contraindicated. Disposition: Admit to ICU Impression: 1. Febrile patient with Sirs 2. Hypotension secondary #1 3. Infectious encephalopathy/delirium 4. History of hyperglycemia and type II diabetic 5. High risk medication, Coumadin, INR 2.8 6. Prosthetic valve 7. History of hypertension This note was generated with [employer] dictation software. It may contain incorrect words, spelling, and punctuation that were not noted in review of the chart prior to signing ED Disposition - Plan for ED Patient: Chief Complaint: Fever Referrals: Jessica Hardy MD [Primary Care Provider] - What to do if you have Problems For any increased pain, shortness of breath, bleeding, nausea or vomiting, chest pain, or any unexpected problems, contact your Primary Care Provider. Call [facility] ([phone]) or report to the closest Emergency Room. Call 911 if necessary. 10/11/17 2237 <Electronically signed by Franoc Buckner MD> Date Franco Buckner MD Cosigner Signature (If Indicated): Date CC: Jessica Hardy MD CBC W/DIFF, AUTOMATED Collected: 10/11/2017 Status: F Source: [place] 8:45 PM [facility] [place] TYPE CODE TESTS RESULT OUT OF RANGE REFERENCE UNITS LAB L100.1000 4.4-11.0 K/mm3 Normal WBC 8.9 LAB L100.1200 4.2-5.4 M/mm3 Low RBC 4.17 LAB L100.1300 12.0-15.0 g/dl Normal HGB 12.3 LAB L100.1400 37-47 % Normal HCT 37.0 LAB L100.1500 81-99 fL Normal MCV 88.7 LAB L100.1600 27.0-32.0 pg Normal MCH 29.5 LAB L100.1700 32-36 g/gl Normal MCHC 33.2 LAB L100.1810 11.6-14.6 % Normal RDW CV 14.2 LAB L100.1820 35.1-43.9 fl High RDW SD 45.9 LAB L100.1900 150-450 K/mm3 Normal PLT 212 LAB L100.2000 6.2-12.0 fl Normal MPV 10.0 LAB L100.2100 47-70 % High NEUT% 88.9 LAB L100.2200 19-41 % Low LY% 5.3 LAB L100.2300 0-10 % Normal MONO% 5.0 LAB L100.2400 0-5 % Normal EO% 0.1 LAB L100.2500 0-1 % Normal BASO% 0.2 LAB L100.2550 0.0-0.9 % Normal IM GRAN % 0.500 Result Comment: IG% - Immature Granulocytes (promyelocytes, myelocytes and metamyelocytes) > 1% indicates that a LEFT SHIFT is Present. LAB L100.2620 2.0-7.7 X10 3/uL High Absolute Neut 7.9 LAB L100.2720 0.83-4.51 X10 3/ul Low Absolute Lymph 0.47 LAB L100.4500 Normal SMEAR COMMENT SEE COMMENT Result Comment: LYMPHOPENIA NOTED LAB L100.5500 ADEQ Normal PLT ADEQUATE EST LAB L100.7000 NORM C AND NORMAL C Normal RED NORM C+C CELL MORPH Performed By: #### L100.0100 #### [facility] [address] [place], [address] PROTHROMBIN TIME W/INR Collected: 10/11/2017 Status: F Source: [place] 8:45 PM [facility] [place] TYPE CODE TESTS RESULT OUT OF RANGE REFERENCE UNITS LAB L300.4150 11.7-14.9 SECONDS High PROTIME 28.7 LAB L300.4200 Normal INR 2.8 Performed By: #### L300.3900, L300.4310 #### [facility] [address] [place], [address] PARTIAL THROMBOPLAST Collected: 10/11/2017 Status: F Source: [facility] 8:45 PM [facility] [place] [facility] TYPE CODE TESTS RESULT OUT OF REFERENCE UNITS RANGE LAB L300.4310 24.1-36.2 Seconds High PTT 74.1 Performed By: #### L300.3900, L300.4310 #### [facility] [address] [place], [address] LACTIC ACID Collected: 10/11/2017 Status: F Source: [place] 8:45 PM [facility] [place] [facility] Order Comment: Yes/No query for Sepsis Lactate Rule Y TYPE CODE TESTS RESULT OUT OF RANGE REFERENCE UNITS LAB L503.6005 0.4-2.0 mmol/L Normal LACTIC ACID 1.0 Performed By: #### L503.6005 #### [facility] [address] [place], [address] COMPREHENSIVE METABOLIC Collected: 10/11/2017 Status: F Source: [place] PROFIL 8:45 PM [facility] [place] TYPE CODE TESTS RESULT OUT OF RANGE REFERENCE UNITS LAB L501.0100 74-106 mg/dL High GLU 211 Result Comment: Glucose result greater than or equal to 200 mg/dL suggests DIABETES MELLITUS per A.D.A. criteria. Please note revised GLUCOSE reference range effective 2017. LAB L501.1000 7-18 mg/dL High BUN 19 LAB L501.1100 0.55-1.02 mg/dL Low CREAT,SERUM 0.51 Result Comment: The validity of the calculated GFR AND GFRAA in patients over 70 years has not been determined. Clinical correlation is essential. LAB L501.1110 >60 mL/min Normal EST GFR 126 Result Comment: Non- GFR Calc LAB L501.1115 >60 mL/min Normal EST GFR - AA 152 Result Comment: GFR Calc LAB L501.1255 ml/min Normal Estimated CRCL 43.92 LAB L501.1300 10-20 RATIO High BUN/CRE 37.0 LAB L501.1500 6.4-8. g/dL Normal 2 T PROT 6.8 LAB L501.1800 3.2-5. g/dL Low 0 ALB 2.9 LAB L501.1950 2.2-4. g/dL Normal 2 GLOB 3.9 LAB L501.2000 0.9-2. RATIO Low 4 A/G 0.7 LAB L501.2200 8.5-10 mg/dL Normal .1 CA 8.7 LAB L501.4100 15-37 U/L Normal AST 25 LAB L501.4305 45-117 U/L Normal ALK P 94 LAB L501.4405 13-56 U/L Normal ALT 15 Result Comment: Please note revised ALT reference range effective 2017. LAB L501.4600 0.20-1.00 mg/dL Normal T BILI 0.80 LAB L501.5300 136-145 mmol/L Low NA 135 LAB L501.5600 3.5-5.1 mmol/L Normal K 3.8 LAB L501.5900 98-107 mmol/L Normal CL 103 LAB L501.6100 21.0-32.0 mmol/L Normal CO2 21.0 LAB L501.6200 5-15 Normal GAP 11 Performed By: #### L500.4050, L501.3620 #### [facility] [address] [place], [address] CPK TOTAL, CREATINE Collected: 10/11/2017 Status: F Source: [place] 8:45 PM [facility] [place] TYPE CODE TESTS RESULT OUT OF RANGE REFERENCE UNITS LAB L501.3620 26-192 U/L Normal CPK TOTAL 139 Performed By: #### L500.4050, L501.3620 #### [facility] [address] [place], [address] URINALYSIS, COMPLETE Collected: 10/11/2017 Status: F Source: [place] 8:20 PM [facility] [place] [facility] Order Comment: Order Date: 10/11/17 How was Urine Obtained? SUPERVISOR LIME TO SPECIFY TYPE CODE TESTS RESULT OUT OF RANGE REFERENCE UNITS LAB L400.3000 Yellow COLOR Normal Yellow LAB L400.3050 Clear Normal CLARITY Clear LAB L400.3200 Normal mg/dl Normal GLUCOSE, UR Normal LAB L400.3300 Negative mg/dL Normal BILIRUBIN URINE Negative LAB L400.3400 Negative mg/dl High 15 KETONE UR LAB L400.3465 1.002-1.030 Normal SP.GR. DIPSTX 1.010 LAB L400.3550 5.0 - 8.0 pH UR Normal 6.0 LAB L400.3600 Negative mg/dl High PROT DIPSTX 100 LAB L400.3700 Normal mg/dl Normal UROBILI Normal LAB L400.3750 Negative Normal NITRITE UR Negative LAB L400.3780 Negative /ul High OCCULT BLOOD-UR 250 LAB L400.3800 Negative /ul LEUK Normal ESTERASE Negative LAB L400.4050 0-5 /hpf WBC 0 Normal SEEN LAB L400.4100 0-5 /hpf Normal RBC-UA 5-10 SEEN LAB L400.4150 5-10 /hpf SQUAM Normal EPI 0-5 SEEN LAB L400.4300 None Seen /hpf 0 Normal BACTERIA SEEN LAB L400.4350 <or=2+ /hpf 0 Normal MUCUS, URINE SEEN Performed By: #### L400.0001 #### [facility] [address] [place], [address] Observed: 10/11/2017 Status: F Source: [place] CULTURE, URINE 8:20 PM [facility] [place] Order Date: 10/11/17 Urine Culture Culture exhibits no growth. Performed By: #### M100.0650 #### [facility] [address] [facility] [place], [address] Observed: 10/11/2017 Status: F Source: [place] CULTURE, BLOOD (WB) 8:15 PM [facility] [place] LEFT HAND BC ANAEROBIC BOTTLE GRAM STAIN:GRAM POSITIVE COCCI IN CHAINS AEROBIC BOTTLE GRAM STAIN: GRAM POSITIVE COCCI IN CHAINS RESULTS CALLED TO ANTHONY/ICU 10/12/17 0733 Arely Woods. RESULTS CALLED TO KONG DARLING 10/12/17 0952 Carly Gomez. REPORT READ BACK BY SAME. ORGANISM 1: Streptococcus group C Amount Growth Growth Streptococcus group C: REACTION Ampicillin $ <=0.25 S Ceftriaxone $ <=0.12 S Clindamycin $$ <=0.25 S Erythromycin $ <=0.12 S Vancomycin $ 0.5 S (NF) indicates non-formulary drug at [facility]. Approval by Infectious Disease Specialist required before non-formulary drugs may be ordered and/or dispensed. * CLSI guidelines does not recommend testing of cephalosporins. This interpretation is deduced from Beta-lactam/penicillin results. Performed By: #### M200.1000 #### [facility] [place], [address] Observed: 10/11/2017 Status: F Source: [place] CULTURE, BLOOD (WB) 8:15 PM [facility] [place] RIGHT ANTECUBITAL BC AEROBIC AND ANAEROBIC BOTTLE GRAM STAIN:GRAM POSITIVE COCCI IN CHAINS RESULTS CALLED TO ANTHONY/ICU 10/12/17 0806 Arely Woods. PLEASE REFER TO [id number] FOR SENSITIVITY ORGANISM 1: Streptococcus group C Amount Growth Growth Performed By: #### M200.1000, M100.636 #### [facility] [place], [address] Observed: 10/11/2017 Status: F Source: [place] BC GPC ID 8:15 PM [facility] [place] RIGHT ANTECUBITAL BC GPC ID Staphylococcus sp. Not Detected Enterococcus sp. Not Detected Streptococcus spp. Streptococcus sp. (NOT S. pneumoniae) Listeria spp Not Detected Koko/vanB Not Detected mecA Not Detected NAAT METHOD Testing was performed using nucleic acid amplification ORGANISM 1: Strep not Strep pneumo Performed By: #### M200.1000, M100.636 #### [facility] [address] [place], [address] CHEST 1 VIEW Observed: 10/11/2017 Status: F Source: [place] (PORTABLE) 8:00 PM [facility] [place] [facility] Imaging Services [address] [place] [address] Chest 1 View (Portable) MR#: [id number] Acct: [id number] Name: MACIEL BUCIO Rep #: [id number] : 1950 F 67 From: Dequan Carrillo MD PCP: Jessica Hardy MD Status: PRE ER Study: Chest 1 View (Portable) Date of Exam: 10/11/17 Exam# [id number] Ordering Dr: Franco Buckner MD ADDENDUM by Dequan Carrillo on 10/11/17 at 2038 RAD/Chest 1 View (Portable) IMPRESSION: There are no acute findings. Electronically Signed: Dequan Carrillo MD at 20:39 EST , Service support , 10/11/172045 Date cc: Jessica Hardy MD; Franco Buckner MD * Signed ADDENDUM by Dequan Carrillo on 10/11/17 at 203 ADDENDUM STUDY: X-RAY CHEST REASON FOR EXAM: Female, 67 years old. FEVER OF 105 WITH DARK URINE TECHNIQUE: Single frontal view of the chest. COMPARISON: April 11, 2007 FINDINGS: Chronic appearing increased interstitial lung markings. Multiple median sternotomy wires are noted consistent for cardiac surgery. There is an elevated right hemidiaphragm. There is no demonstrated pleural abnormality. Enlarged heart size. Normal mediastinum and rahat. Normal visualized pulmonary arteries. There is atherosclerotic calcification of the aortic arch with tortuosity. There are diffuse degenerative changes of the visualized thoracic spine. There is degenerative osteoarthritis of the bilateral shoulders. There is no demonstrated abnormality of the visualized soft tissue structures of the upper abdomen. 10/11/172038 Date cc: Jessica Hardy MD; Franco Buckner MD * Signed STUDY: X-RAY CHEST REASON FOR EXAM: Female, 67 years old. FEVER OF 105 WITH DARK URINE TECHNIQUE: Single frontal view of the chest. COMPARISON: April 11, 2001 FINDINGS: Chronic appearing increased interstitial lung markings. Multiple median sternotomy wires are noted consistent for cardiac surgery. There is an elevated right hemidiaphragm. There is no demonstrated pleural abnormality. Enlarged heart size. Normal mediastinum and rahat. Normal visualized pulmonary arteries. There is atherosclerotic calcification of the aortic arch with tortuosity. There are diffuse degenerative changes of the visualized thoracic spine. There is degenerative osteoarthritis of the bilateral shoulders. There is no demonstrated abnormality of the visualized soft tissue structures of the upper abdomen. RAD/Chest 1 View (Portable) IMPRESSION: There are no acute findings. Electronically Signed: Dequan Carrillo MD at 20:38 EST , Service support , CC: Jessica Hardy MD; Franco Buckner MD Programmer Developer: Signed BRAIN/HEAD WITHOUT Observed: 10/11/2017 Status: F Source: [place] CONTRAST 8:00 PM [facility] [place] [facility] Imaging Services [address] [address] Brain/Head without Contrast MR#: [id number] Acct: [id number] Name: MACIEL BUCIO Rep #: [id number] : 1950 F 67 From: Dequan Carrillo MD PCP: Jessica Hardy MD Status: PRE ER Study: Brain/Head without Contrast Date of Exam: 10/11/17 Exam# [id number] Ordering Dr: Franco Buckner MD STUDY: CT BRAIN WITHOUT CONTRAST REASON FOR EXAM: Female, 67 years old. FEVER OF 105/DARK URINE/SEPTIC RADIATION DOSAGE (If Supplied By Facility): CTDIvol = ( 44.99 ) mGy, DLP = ( 745.49 ) mGycm TECHNIQUE: Transaxial CT imaging of the brain was performed without administration of intravenous contrast material. COMPARISON: 05.11.16. FINDINGS: Normal soft tissue structures. Normal calvarium. There are calcifications around the carotid artery. These are noted in the cavernous carotid arteries. 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 There is an old left basal ganglia lacunar infarct. There is mild cerebral atrophy with widening of the extra- axial spaces and ventricular dilatation. There are areas of decreased attenuation within the white matter tracts of the supratentorial brain, consistent with microvascular disease changes. Normal basal ganglia and thalami. Normal brainstem. There is mild cerebellar atrophy. There is no intracranial hemorrhage. There are no findings of an acute ischemic infarction. There is maxillary and ethmoid sinus disease. CT/Brain/Head without Contrast IMPRESSION: Chronic involutional changes of the brain. There are no acute findings. Electronically Signed: Dequan Carrillo MD at 21:40 EST , Service support , CC: Jessica Hardy MD; Franco Buckner MD Programmer Developer: Signed PROGRESS Observed: 10/08/2017 Status: COMPLETED Source: [place] 12:[address] [facility] REPOSITORY HNO ID: [id number] Author: Raven Zuniga RN Service: (none) Author Type: (none) Type: Progress Notes Filed: 10/08/2017 12:32 PM Note Text: per written order by dr hardy she agrees with information below, encounter is being closed PROGRESS Observed: 10/08/2017 Status: COMPLETED Source: [place] 10:[address] [facility] REPOSITORY HNO ID: [id number] Author: Raven Zuniga RN Service: (none) Author Type: (none) Type: Progress Notes Filed: 10/08/2017 10:22 AM Note Text: patient had inr completed at [facility] patients inr is 3.4 (patients inr range is 2.5-3.5) patient is currently taking 4mg Tues,Thurs,Sat and 6mg all other days patients last dose change was on 06/14/17 due to a low level of 2.4 (dose at that time was 6mg Mon,Wed,Fri and 4mg all other days) patient has had no changes in medication and no missed doses and no change in diet Advised patient to continue on the same dose(s) and that they would only be contacted regarding dosage and follow up instructions after review with provider, if a change is needed. Written instructions given and patient verbalized understanding. Presently scheduled in 2 weeks (10/22/17 - per pt request) for follow up INR. ALBUMIN/CREAT RATIO Collected: 09/29/2017 Status: F Source: [place] 8:[address] [facility] REPOSITORY TYPE CODE TESTS RESULT OUT OF REFERENCE UNITS RANGE LAB UCRR 20-300 mg/dL Test sent to [facility]. Result Comment: Account Credited HIDE LAB UALBR 0.0-23.0 mg/L Test Albumin Urine sent to [facility]. Result Comment: Account Credited MACHOE LAB UALBCR 0-30 mg/g Albumin/Creat Ratio Test sent to [facility]. Result Comment: Account Credited HIDE BASIC METABOLIC PANL Collected: 09/29/2017 Status: F Source: [place] 8:[address] [facility] REPOSITORY TYPE CODE TESTS RESULT OUT OF REFERENCE UNITS RANGE LAB GLU 74-99 mg/dL Test Glucose sent to [facility]. Result Comment: Account Credited MACHOE LAB BUN 7-21 mg/dL Test sent BUN to [facility]. Result Comment: Account Credited [facility] LAB CRET 0.58-0.96 mg/dL Creatinine Test sent to [facility]. Result Comment: Account Credited HIDE LAB NA 136-144 mmol/L Test Sodium sent to [facility]. Result Comment: Account Credited HIDE LAB K 3.7-5.1 mmol/L Test Potassium sent to [facility]. Result Comment: Account Credited HIDE LAB CL 97-105 mmol/L Test Chloride sent to [facility]. Result Comment: Account Credited HIDE LAB CO2 22-30 mmol/L Test sent CO2 to [facility]. Result Comment: Account Credited HIDE LAB AGAP 9-18 mmol/L Test sent Anion Gap to [facility]. Result Comment: Account Credited HIDE LAB CA 8.5-10.2 mg/dL Test Calcium, Total sent to [facility]. Result Comment: Account Credited HIDE LAB GFRAA eGFR- Amer. Test sent to [facility]. Result Comment: Account Credited HIDE LAB GFRNAA . eGFR-All Test sent Other Races to [facility]. Result Comment: Account Credited [facility]ACHOE LAB GFRPED eGFR-Ped. Test sent Factor to [facility]. Result Comment: Account Credited RAY CBC Collected: 09/29/2017 Status: F Source: [place] 8:[address] [facility] REPOSITORY TYPE CODE TESTS RESULT OUT OF REFERENCE UNITS RANGE LAB WBC 3.70-11.00 k/uL Test WBC sent to [facility]. Result Comment: Account Credited HIDE LAB RBC 3.90-5.20 m/uL Test sent RBC to [facility]. Result Comment: Account Credited HIDE LAB HGB 11.5-15.5 g/dL Hemoglobin Test sent to [facility]. Result Comment: Account Credited HIDE LAB HCT 36.0-46.0 % Hematocrit Test sent to [facility]. Result Comment: Account Credited HIDE LAB MCV 80.0-100.0 fL Test sent MCV to [facility]. Result Comment: Account Credited HIDE LAB MCH 26.0-34.0 pG Test sent MCH to [facility]. Result Comment: Account Credited HIDE LAB MCHC 30.5-36.0 g/dL Test MCHC sent to [facility]. Result Comment: Account Credited [facility]OE LAB RDWCV 11.5-15.0 % Test RDW-CV sent to [facility]. Result Comment: Account Credited HIDE LAB PLTCT 150-400 k/uL Test Platelet Count sent to [facility]. Result Comment: Account Credited HIDE LAB MPV 9.0-12.7 fL Test sent MPV to [facility]. Result Comment: Account Credited HIDE LAB ZULMA Recheck Test sent to [facility]. Result Comment: Account Credited HIDE LAB REVW Test sent to [facility]. Result Comment: Account Credited HIDE LAB CBCCOM Comment Test sent to [facility]. Result Comment: Account Credited [facility]OE LAB ABSNUC <0.01 k/uL Test Absolute nRBC sent to [facility]. Result Comment: Account Credited RAY HEMOGLOBIN A1C Collected: 09/29/2017 Status: F Source: [place] 8:[address] [facility] REPOSITORY TYPE CODE TESTS RESULT OUT OF REFERENCE UNITS RANGE LAB HGBA1C 4.0-6.0 % Test Hemoglobin A1c sent to [facility]. Result Comment: Account Credited RAY LAB HBA0 mg/dL Est. Test sent Average Glucose to [facility]. Result Comment: Account Credited RAY LIPID PANEL, BASIC Collected: 09/29/2017 Status: F Source: [place] 8:[address] [facility] REPOSITORY TYPE CODE TESTS RESULT OUT OF REFERENCE UNITS RANGE LAB CHOL <200 mg/dL Cholesterol Test sent to [facility]. Result Comment: Account Credited [facility]OE LAB TRIGLY <150 mg/dL Triglyceride Test sent to [facility]. Result Comment: Account Credited MACHOE LAB HDL >39 mg/dL HDL-Cholesterol Test sent to [facility]. Result Comment: Account Credited MACHOE LAB LDL <100 mg/dL LDL-Cholesterol Test sent to [facility]. Result Comment: Account Credited MACHOE LAB NONHDL 90-159 mg/dL Non HDL Test Cholesterol sent to [facility]. Result Comment: Account Credited RAY LAB FT hrs Fasting Time 12 LAB VLDL <30 mg/dL VLDL Cholesterol Test sent to [facility]. Result Comment: Account Credited RAY LAB TCHDL <5.10 Test sent TC:HDL Ratio to [facility]. Result Comment: Account Credited RAY LAB LDLHDL <2.54 Test sent LDL:HDL Ratio to [facility]. Result Comment: Account Credited RAY CBC-COMPLETE BLOOD CNT Collected: 09/29/2017 Status: F Source: [place] NO DIFF 8:27 AM [facility] [place] TYPE CODE TESTS RESULT OUT OF RANGE REFERENCE UNITS LAB L100.1000 4.4-11.0 K/mm3 Normal WBC 5.4 LAB L100.1200 4.2-5.4 M/mm3 Normal RBC 4.47 LAB L100.1300 12.0-15.0 g/dl Normal HGB 13.3 LAB L100.1400 37-47 % Normal HCT 41.3 LAB L100.1500 81-99 fL Normal MCV 92.4 LAB L100.1600 27.0-32.0 pg Normal MCH 29.8 LAB L100.1700 32-36 g/gl Normal MCHC 32.2 LAB L100.1810 11.6-14.6 % Normal RDW CV 14.5 LAB L100.1820 35.1-43.9 fl High RDW SD 47.7 LAB L100.1900 150-450 K/mm3 Normal PLT 387 LAB L100.2000 6.2-12.0 fl Normal MPV 11.4 Performed By: #### L100.0500 #### [facility] [address], [address] BASIC METABOLIC Collected: 09/29/2017 Status: F Source: [place] PROFILE (BMP) 8:27 AM [facility] [place] TYPE CODE TESTS RESULT OUT OF RANGE REFERENCE UNITS LAB L501.0100 74-106 mg/dL High GLU 210 Result Comment: Glucose result greater than or equal to 200 mg/dL suggests DIABETES MELLITUS per A.D.A. criteria. Please note revised GLUCOSE reference range effective 2017. LAB L501.1000 7-18 mg/dL Normal BUN 16 LAB L501.1100 0.55-1.02 mg/dL Low CREAT,SERUM 0.49 Result Comment: The validity of the calculated GFR AND GFRAA in patients over 70 years has not been determined. Clinical correlation is essential. LAB L501.1110 >60 mL/min Normal EST GFR 134 Result Comment: Non- GFR Calc LAB L501.1115 >60 mL/min Normal EST GFR - AA 162 Result Comment: GFR Calc LAB L501.1300 10-20 RATIO High BUN/CRE 32.8 LAB L501.2200 8.5-10.1 mg/dL CA Normal 9.3 LAB L501.5300 136-145 mmol/L NA Normal 139 LAB L501.5600 3.5-5.1 mmol/L K Normal 4.0 Result Comment: Slight Hemolysis, Result may be falsely increased. LAB L501.5900 98-107 mmol/L Normal CL 104 LAB L501.6100 21.0-32.0 mmol/L Normal CO2 23.0 LAB L501.6200 5-15 Normal GAP 12 Performed By: #### L500.2500, L500.4100 #### [facility] [address] [place], [address] LIPID PROFILE Collected: 09/29/2017 Status: F Source: [place] 8:27 AM [facility] [place] TYPE CODE TESTS RESULT OUT OF RANGE REFERENCE UNITS LAB L501.4900 200 mg/dL Normal CHOL 173 Result Comment: <200 mg/dL Desirable 200-240 mg/dL Borderline >240 mg/dL High Risk LAB L501.5000 mg/dL High TRIG 200 Result Comment: The drugs N-Acetylcysteine and Metamizole may falsely depress this assay. Serum Triglycerides Reference Interval Normal <150 mg/dL Borderline high 150 - 199 mg/dL High 200 - 499 mg/dL Very High > or = 500 mg/dL LAB L501.6400 mg/dL Low HDL 39 Result Comment: The drugs N-Acetylcysteine and Metamizole may falsely depress this assay. Reference Range HDL <40 mg/dL Low HDL Cholesterol HDL >or= 60 mg/dL High HDL Cholesterol LAB L501.6500 0-130 mg/dL Normal LDL 94 LAB L501.6600 5-40 mg/dL Normal VLDL 40 Performed By: #### L500.2500, L500.4100 #### [facility] [address] [place], [address] HEMOGLOBIN A1C Collected: 09/29/2017 Status: F Source: [place] 8:27 AM [facility] [place] TYPE CODE TESTS RESULT OUT OF RANGE REFERENCE UNITS LAB L501.9985 4.2-6.3 % High HGB A1C 7.4 Performed By: #### L501.9985 #### [facility] [address] [place], [address] MICROALB:CREAT Collected: 09/29/2017 Status: F Source: [place] RATIO,RANDOM UR 8:27 AM [facility] [place] TYPE CODE TESTS RESULT OUT OF RANGE REFERENCE UNITS LAB L501.1200 NO RANGE EST. mg/dL Normal UR CREAT 74.80 LAB L502.0500 NO RANGE EST. mg/L Normal 40.2 MICROALBUMIN ,UR LAB L502.0600 <30 mg/g CRE mg/g CRE High 53.7 MALB:CREAT Performed By: #### L502.0250 #### [facility] [address] [place], [address] PROGRESS Observed: 09/24/2017 Status: COMPLETED Source: [place] 9:[address] [facility] REPOSITORY HNO ID: [id number] Author: Vickie Castillo RN Service: (none) Author Type: (none) Type: Progress Notes Filed: 09/24/2017 9:04 AM Note Text: INR 3.4 target inr range of 2.5-3.5 - results reviewed with patient. Current Coumadin dose is 4mg Tues,Thurs,Sat and 6mg all other days Last dose change 06/14/17. Previous INR on 09/17/17 was 2.0. Above reviewed with - verbal and written orders received - patient advised as per to take same dose of 4mg Tues,Thurs,Sat and 6mg all other days and return in 2 weeks for INR level. Written instructions given and patient verbalized understanding. Vickie Castillo RN PROGRESS Observed: 09/17/2017 Status: COMPLETED Source: [place] 2:[address] [facility] REPOSITORY HNO ID: [id number] Author: Raven Zuniga RN Service: (none) Author Type: (none) Type: Progress Notes Filed: 09/17/2017 2:30 PM Note Text: per written order by dr hardy she agrees with information below, encounter is being closed PROGRESS Observed: 09/17/2017 Status: COMPLETED Source: [place] 8:[address] [facility] REPOSITORY HNO ID: [id number] Author: Raven Zuniga RN Service: (none) Author Type: (none) Type: Progress Notes Filed: 09/17/2017 8:02 AM Note Text: patient had inr completed at [facility] patients inr is 2.0 (patients inr range is 2.5-3.5) patient is currently taking 4mg Tues,Thurs, Sat and 6mg all other days patients last dose change was on 09/08/17 due to a low level of 1.7 patient has had no changes in medication except for coumadin and no change in diet Advised patient to continue on the same dose(s) and that they would only be contacted regarding dosage and follow up instructions after review with provider, if a change is needed. Written instructions given and patient verbalized understanding. Presently scheduled in 1 week (09/24/17) for follow up INR. 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 SHARMA CODE TESTS RESULT OUT OF RANGE REFERENCE UNITS LAB L300.4150 11.7-14.9 SECONDS High PROTIME 19.5 LAB L300.4200 Normal INR 1.7 Performed By: #### L300.3900 #### [facility] [address] [place], [address] ALLERGIES ALLERGIES DATE TYPE / CODE NAME / CODE REACTION SEVERITY SOURCE 01/30/2018 Drug Calcium Channel Rash Unknown [place] [facility]/[id number]( Blocking Agent [facility]) [place]/[id number]( Hospital RXNORM) Repository 06/11/2015 [id number] SNOMED CT) [place] Repository 06/11/2015 DRUG [facility]ROZIL [id number] SN[facility] [place] Repository 06/09/2005 Miscellaneous OTHER RASH [place] Allergy/000612583( [facility] SNOMED CT) [place] Rep[place] Drug Calcium Channel Unknown [facility] Allergy/[id number]( [facility] SNOM[facility]) Agents-Phenylalk Repository [place]/407449( RXNORM) ENCOUNTERS ENCOUNTERS ADMIT/DISCHARGE ACCOUNT NUMBER ADMITTING ENCOUNTER LOCATION SOURCE CLASS 09/05/2018/09/05/19 [id number] Ambulatory [address] [place] Repository 09/02/2018/09/05/19 [id number] Ambulatory [address] [place] Repository 08/26/2018/08/29/19 [id number] Ambulatory [address] [place] Repository 08/12/2018/08/15/20 [id number] Ambulatory [address] [place] Repository 08/05/2018/08/08/20 [id number] Ambulatory [address] [place] Repository 08/01/2018 [id number] [facility] ding:LABSPEC Repository 08/01/2018/08/01/20 [id number] Ambulatory [address] [place] Repository 07/22/2018/07/25/20 [id number] Ambulatory [address] [place] Repository 07/08/2018/07/11/20 [id number] Ambulatory [address] [place] Repository 07/08/2018/07/08/20 [id number] Ambulatory [address] [place] Repository 06/16/2018/06/17/20 [id number] Ambulatory [address] [place] Repository 06/02/2018/06/03/20 [id number] Ambulatory [place] [facility] [place] Repository 05/20/2018/05/23/20 [id number] Ambulatory [address] [place] Repository 05/05/2018/05/06/20 [id number] Ambulatory [address] [place] Repository 05/02/2018/05/17/20 [id number] Ambulatory [address] [place] Repository 04/21/2018 [id number] [facility] ding:LABSPEC Repository 04/21/2018/04/22/20 [id number] Ambulatory [address] [place] Repository 04/21/2018/04/21/20 [id number] Ambulatory [address] Repository 04/07/2018/04/08/20 [id number] Ambulatory [address] Repository 03/31/2018/04/01/20 [id number] Ambulatory [address] Repository 03/15/2018/03/16/20 [id number] Ambulatory [address] Repository 03/04/2018/03/07/20 [id number] Ambulatory [address] Repository 02/28/2018/03/01/20 [id number] Ambulatory [address] Repository 02/14/2018/02/16/20 [id number] Ambulatory [address] Repository 02/10/2018 [id number] Ambulatory [facility] ding:LABSPEC Repository 02/10/2018/02/12/20 [id number] Ambulatory [address] Repository 02/10/2018/02/11/20 [id number] Ambulatory [address] Repository 01/30/2018/01/31/20 [id number] Emergency [address] ding:ED Repository 01/27/2018/02/08/20 [id number] Ambulatory [address] Repository 01/27/2018/01/29/20 [id number] Ambulatory [address] Repository 01/24/2018 [id number] Ambulatory [facility] Repository 01/20/2018 [id number] Ambulatory [facility] Repository 01/20/2018/01/22/20 [id number] [place]A, Ambulatory [facility] [address] oom: 348Bed: [facility] Repository 01/12/2018/01/14/20 [id number] Ambulatory [address] Repository 01/11/2018/01/12/20 [id number] [place], Ambulatory Building:[facility] [address] [place] Repository 01/04/2018/01/06/20 [id number] Ambulatory [address] Repository 12/28/2017/12/30/19 [id number] Ambulatory [address] Repository 12/21/2017/12/22/19 [id number] Ambulatory BMSBuilding: [place] [facility] Repository 12/14/2017 [id number] Ambulatory BMS [facility] Repository 12/09/2017 [id number] Ambulatory BMSBuilding: [place] BMS.[facility] Repository 12/08/2017 [id number] Ambulatory BMSBuilding: [place] BMS.[facility] Repository 11/19/2017/11/23/19 [id number] Ambulatory [address] Repository 11/16/2017/11/17/19 [id number] Ambulatory [address] Repository 11/01/2017/11/03/19 [id number] Ambulatory [address] Repository 10/29/2017/10/30/19 [id number] Ambulatory [address] Repository 10/29/2017/10/30/19 [id number] Ambulatory [address] Repository 10/22/2017/10/26/19 [id number] Ambulatory [address] Repository 10/13/2017/10/21/19 [id number] Ambulatory BMSBuilding: [place] Repository 10/11/2017/10/21/19 [id number] Wesley Serna Inpatient [address] ding:PCURoom Repository : [id number]: 1 10/11/2017 [id number] Ambulatory BMSBuilding: [place] BMS.[facility] Repository 10/11/2017 [id number] Wesley Serna Ambulatory BMSBuilding: [place] BMS.[facility] Repository 10/11/2017 [id number] Wesley Serna Ambulatory BMSBuilding: [place] BMS.[facility] Repository 10/11/2017 [id number] Wesley Serna Ambulatory BMSBuilding: [place] BMS.[facility] Repository 10/11/2017 [id number] Wesley Serna Ambulatory BMSBuilding: [place] BMS.[facility] Repository 10/11/2017 [id number] Wesley Serna Ambulatory BMSBuilding: [place] BMS.[facility] Repository 10/11/2017 [id number] Wesley Serna Ambulatory BMSBuilding: [place] BMS.[facility] Repository 10/11/2017 [id number] Wesley Serna Ambulatory BMSBuilding: [place] BMS.[facility] Repository 10/11/2017 [id number] Wesley Serna Ambulatory BMSBuilding: [place] BMS.[facility] Repository 10/11/2017 [id number] Wesley Serna Ambulatory BMSBuilding: [place] BMS.[facility] Repository 10/11/2017 [id number] Wesley Serna Ambulatory BMSBuilding: [place] [facility] Repository 10/11/2017 [id number] Wesley Serna Ambulatory BMSBuilding: [place] BMS.CF.[facility] Repository 10/11/2017 [id number] Wesley Serna Ambulatory BMSBuilding: [place] BMS.[facility] Repository 10/11/2017 [id number] Wesley Serna Ambulatory BMSBuilding: [place] BMS.[facility] Repository 10/11/2017 [id number] Wesley Serna Ambulatory BMSBuilding: [place] BMS.[facility] Repository 10/11/2017 [id number] Wesley Serna Ambulatory BMSBuilding: [place] BMS.[facility] Repository 10/11/2017 [id number] Wesley Serna Ambulatory BMSBuilding: [place] BMS.[facility] Repository 10/11/2017/10/21/19 [id number] Ambulatory BMSBuilding: [place] [facility] Repository 10/08/2017/10/09/19 [id number] Ambulatory [address] Repository 09/29/2017 [id number] Ambulatory [facility] ding:LABSPEC Repository 09/29/2017/09/29/19 [id number] Ambulatory [address] Repository 09/24/2017/09/24/19 [id number] Ambulatory [address] Repository 09/17/2017/09/20/19 [id number] Ambulatory [address] Repository 09/08/2017 [id number] Ambulatory [facility] ding:LAB.FUT Repository URE PAYERS PAYERS ENCOUNTER GUARANTOR PAYER SUBSCRIBER SOURCE 08/01/2018 MACIEL [id number] Insurance:[employer] EMERITA: Community [place] MED[place] [id number] [facility] [place] Number: Repository [address]Lqf: 330 [id number] [phone] (HP) Date:5672-40-71WR [address] [address]JJ: 08/01/2018 Secondary NOT GIVENUNK [place] Insurance:SELF PAY [facility] Number: Effective Repository Date:2018-08-01 04/21/2018 MACIEL Trejo Primary MACIEL Trejo [place] [id number] Insurance:SUMMA CARE MELLOTTDOB: Community [place] MEDICARE[place] [id number] [facility], [place] Number: Repository [address]Dso: 330 [id number] [phone] () Date:4172-22-46PH [address]IME[facility], [place] [address]KR: 04/21/2018 Secondary NOT GIVENUNK [place] Insurance:SELF PAY [facility] Number: Effective Repository Date:2018-04-21 02/10/2018 MACIEL Trejo Primary MACIEL Trejo [place] [id number] Insurance:SUMMA CARE MELLOTTDOB: Community [place] MEDICARE[place] [id number] [facility], [place] Number: Repository [address]Lin: (330 [id number] [phone] () Date:7093-57-37UR [address], [place] [address]WH: 02/10/2018 Secondary NOT GIVENUNK [place] Insurance:SELF PAY [facility] Number: Effective Repository Date:2018-02-10 01/30/2018 MACIEL Trejo Primary MACIEL Trejo [place] [id number] Insurance:SUMMA CARE MELLOTTDOB: Community [place] MEDICARE[place] [id number] [facility], [place] Number: Repository [address]Cjm: (330 [id number] [phone] (HP) Date:6625-89-69ZB [address], [place] [address]GA: 01/30/2018 Secondary NOT GIVENUNK [place] Insurance:SELF PAY [facility] Number: Effective Repository Date:2018-01-30 01/20/2018 [facility] MedicarePolicy [id number] Repository ALLEY Number: [address] [place], [place] [id number] [place], [place] [address]Ubj: (330) Date:Plan 36456Mly: (HP) Name:[facility] [phone] (HP) [address], [place] [id number]: 01/20/2018 [facility] Insurance:[facility] HospitalB: MEDICARE MELLOTTDOB: [facility] [id number] Repository ALLEY Number: [address] [facility], [place] [id number] [place], [place] [address]Loh: (330) Date:6119-59-62WD [address] [address]Nev: (HP) [address], [place] [phone] (HP) [address]TC: 01/11/2018 [facility] Insurance:McKitrick HospitalB: MEDICARE MELLOTTDOB: [facility] [id number] Repository ALLEY Number: [address] [facility], [place] [id number] [place], [place] [address]Ikk: (330) Date:2999-92-81LU [address] [address]Hfm: (HP) [place], [place] [phone] (HP) [address]LQ: 12/21/2017 [facility] [place] [id number] Insurance:[facility]: Community [place] MEDICARE[place] [id number] Hospital [place] Number: Repository [address]Qgi: 330 [id number] [phone] (HP) Date:1485-51-46HD [address], [place] [address]BE: 12/21/2017 Secondary NOT GIVENUNK [place] Insurance:SELF PAY [facility] Number: Effective Repository Date:2017-12-21 12/14/2017 MACIEL Trejo Primary MACIEL [place] [id number] Insurance:SUMMA CARE MELLOTTDOB: Community [place] MEDICAREPolicy [id number] St[facility] [place] Number: Repository [address]Hbp: (330 [id number] [phone] (HP) Date:6426-53-08NJ [address] CENTERJAIMEsh[place], [place] [address]VQ: 12/14/2017 Secondary NOT GIVENUNK [place] Insurance:SELF PAY [facility] Number: Effective Repository Date:2017-12-14 12/09/2017 MACIEL Trejo Primary MACIEL Trejo [place] [id number] Insurance:SUMMA CARE MELLOTTDOB: Community [place] MEDICAREPolicy [id number] New [facility] Medical [facility], [place] Number: Repository [address]Jtp: 330 [id number] [phone] (HP) Date:7200-45-25WM [address] [facility] HospitalSusanIDJAIMEsh[place], [place] [address]JW: 12/09/2017 Secondary NOT GIVENUNK [place] Insurance:SELF PAY [facility] Number: Effective Repository Date:2017-10-20 12/08/2017 MACIEL Trejo Primary MACIEL Jackson [id number] Insurance:SUMMA CARE MELLOTTDOB: Community [place] MEDICAREPolicy [id number] New [facility], [place] Number: Repository [address]Tew: 330 [id number] [phone] (HP) Date:2069-76-63KS [address] CENTERJAIMEsh[place], [place] [address]IO: 12/08/2017 Secondary NOT GIVENUNK [place] Insurance:SELF PAY [facility] Number: Effective Repository Date:2017-12-08 10/13/2017 MACIEL Trejo Primary MACIEL Jackson [id number] Insurance:SUMMA CARE MELLOTTDOB: Community [place] MEDICAREPolicy [id number] St[facility] [place] Number: Repository [address]Idf: 330 [id number] [phone] (HP) Date:7578-75-40YR [address], [place] [address]PP: 10/13/2017 Secondary NOT GIVENUNK [place] Insurance:SELF PAY [facility] Number: Effective Repository Date:2017-10-13 10/11/2017 MACIEL Trejo Primary MACIEL Trejo [place] [id number] Insurance:SUMMA CARE MELLOTTDOB: Community [place] MEDICAREPolicy [id number] New [facility] Medical [facility], [place] Number: Repository [address]Ztx: 330 [id number] [phone] () Date:9753-68-78TS [address] [place] [address]GV: 10/11/2017 Secondary NOT GIVENUNK [place] Insurance:SELF PAY [facility] Number: Effective Repository Date:2017-10-11 10/11/2017 Maciel Trejo Primary Maciel Trejo [place] [id number] Insurance:SUMMA CARE MellottDOB: Community [place] MEDICAREPolicy [id number] [facility]iatric [facility], [place] Number: Repository [address]Dsa: (330 [id number] [phone] () Date:4551-33-37VZ [address] CENTERJAIMEsh[place], [place] [address]VO: 10/11/2017 Secondary NOT GIVENUNK [place] Insurance:SELF PAY [facility] Number: Effective Repository Date:2017-10-11 10/11/2017 MACIEL Trejo Primary MACIEL Trejo [place] [id number] Insurance:SUMMA CARE MELLOTTDOB: Community [place] MEDICAREPolicy [id number] [facility], [place] Number: Repository [address]Lal: (330 [id number] [phone] (HP) Date:7367-12-64AX [address]JAIME[place], [place] [address]QP: 10/11/2017 Secondary NOT GIVENUNK [place] Insurance:SELF PAY [facility] Number: Effective Repository Date:2017-10-11 10/11/2017 MACIEL Trejo Primary MACIEL Jackson [id number] Insurance:SUMMA CARE MELLOTTDOB: Community [place] MEDICAREPolicy [id number], [place] Number: Repository [address]Xdi: 330 [id number] [phone] (HP) Date:8104-44-67ZU [address], [place] [address]LN: 10/11/2017 Secondary NOT GIVENUNK [place] Insurance:SELF PAY [facility] Number: Effective Repository Date:2017-10-11 10/11/2017 MACIEL Trejo Primary MACIEL [place] [id number] Insurance:SUMMA CARE MELLOTTDOB: Community [place] MEDICARE[place] [id number], [place] Number: Repository [address]Xpv: 330 [id number] [phone] (HP) Date:4841-72-63IK [address] [place] [address]XL: 10/11/2017 Secondary NOT GIVENUNK [place] Insurance:SELF PAY [facility] Number: Effective Repository Date:2017-10-11 10/11/2017 MACIEL Trejo Primary MACIEL Jackson [id number] Insurance:SUMMA CARE MELLOTTDOB: Community [place] MEDICAREPolicy [id number] [facility], [place] Number: Repository [address]Pod: (330 [id number] [phone] (HP) Date:7708-92-18CY [address] [place] [address]FQ: 10/11/2017 Secondary NOT GIVENUNK [place] Insurance:SELF PAY [facility] Number: Effective Repository Date:2017-10-11 10/11/2017 MACIEL Trejo Primary MACIEL [place] [id number] Insurance:SUMMA CARE MELLOTTDOB: Community [place] MEDICAREPolicy [id number] [facility], [place] Number: Repository [address]Htz: (330 [id number] [phone] (HP) Date:6156-76-62JT [address], [place] [address]JS: 10/11/2017 Secondary NOT GIVENUNK [place] Insurance:SELF PAY [facility] Number: Effective Repository Date:2017-10-11 10/11/2017 MACIEL Trejo Primary MACIEL Trejo [place] [id number] Insurance:SUMMA CARE MELLOTTDOB: Community [place] MEDICAREPolicy [id number] St. [facility] [place] Number: Repository [address]Vic: 330 [id number] [phone] () Date:1887-37-35TE [address] CENTERJAIMEsh[place], [place] [address]OJ: 10/11/2017 Secondary NOT GIVENUNK [place] Insurance:SELF PAY [facility] Number: Effective Repository Date:2017-10-11 10/11/2017 MACIEL Trejo Primary MACIEL Trejo [place] [id number] Insurance:SUMMA CARE MELLOTTDOB: Community [place] MEDICAREPolicy [id number] St[facility] [place] Number: Repository [address]Bwa: 330 [id number] [phone] () Date:5512-66-43DK [address] CENTERJAIMEsh[place], [place] [address]QA: 10/11/2017 Secondary NOT GIVENUNK [place] Insurance:SELF PAY [facility] Number: Effective Repository Date:2017-10-11 10/11/2017 MACIEL Trejo Primary MACIEL Rdzoster [id number] Insurance:SUMMA CARE MELLOTTDOB: Community [place] MEDICAREPolicy [id number] Number: Repository [address]Bai: 330 [id number] [phone] () Date:9816-48-83DE [address] [place] [address]FE: 10/11/2017 Secondary NOT GIVENUNK [place] Insurance:SELF PAY [facility] Number: Effective Repository Date:2017-10-11 10/11/2017 MACIEL Trejo Primary MACIEL Trejo [place] [id number] Insurance:SUMMA CARE MELLOTTDOB: Community [place] MEDICAREPolicy [id number] [facility], [place] Number: Repository [address]Syt: 330 [id number] [phone] (HP) Date:2115-23-17BP [address] [address]KO: 10/11/2017 Secondary NOT GIVENUNK [place] Insurance:SELF PAY [facility] Number: Effective Repository Date:2017-10-11 10/11/2017 MACIEL Trejo Primary MACIEL Trejo [place] [id number] Insurance:SUMMA CARE MELLOTTDOB: Community [place] MEDICAREPolicy [id number] [facility], [place] Number: Repository [address]Hov: 330 [id number] [phone] (HP) Date:9472-31-57UJ [address] CENTERJAIMEsh[place], [place] [address]KD: 10/11/2017 Secondary NOT GIVENUNK [place] Insurance:SELF PAY [facility] Number: Effective Repository Date:2017-10-11 10/11/2017 MACIEL Trejo Primary MACIEL Trejo [place] [id number] Insurance:SUMMA CARE MELLOTTDOB: Community [place] MEDICAREPolicy [id number] [facility], [place] Number: Repository [address]Bkd: (330 [id number] [phone] () Date:5308-64-53PI [address], [place] [address]HY: 10/11/2017 Secondary NOT GIVENUNK [place] Insurance:SELF PAY [facility] Number: Effective Repository Date:2017-10-11 10/11/2017 MACIEL Trejo Primary MACIEL Trejo [place] [id number] Insurance:SUMMA CARE MELLOTTDOB: Community [place] MEDICAREPolicy [id number] St[facility] [place] Number: Repository [address]Ajk: (330 [id number] [phone] (HP) Date:5818-63-64WP [address], [place] [address]BK: 10/11/2017 Secondary NOT GIVENUNK [place] Insurance:SELF PAY [facility] Number: Effective Repository Date:2017-10-11 10/11/2017 MACIEL Trejo Primary MACIEL Trejo [place] [id number] Insurance:SUMMA CARE MELLOTTDOB: Community [place] MEDICAREPolicy [id number], [place] Number: Repository [address]Ddf: 330 [id number] [phone] (HP) Date:0087-39-10BV [address], [place] [address]MO: 10/11/2017 Secondary NOT GIVENUNK [place] Insurance:SELF PAY [facility] Number: Effective Repository Date:2017-10-11 10/11/2017 MACIEL Trejo Primary MACIEL Rdzoster [id number] Insurance:SUMMA CARE MELLOTTDOB: Community [place] MEDICAREPolicy [id number], [place] Number: Repository [address]Mjg: 330 [id number] [phone] (HP) Date:0904-54-15ZY [address] [place] [address]YV: 10/11/2017 Secondary NOT GIVENUNK [place] Insurance:SELF PAY [facility] Number: Effective Repository Date:2017-10-11 10/11/2017 MACIEL Trejo Primary MACIEL [place] [id number] Insurance:SUMMA CARE MELLOTTDOB: Community [place] MEDICAREPolicy [id number]: Repository [address]Atw: (330 [id number] [phone] (HP) Date:1039-69-12ZX [address], [place] [address]HI: 10/11/2017 Secondary NOT GIVENUNK [place] Insurance:SELF PAY [facility] Number: Effective Repository Date:2017-10-11 10/11/2017 MACIEL Trejo Primary MACIEL [place] [id number] Insurance:SUMMA CARE MELLOTTDOB: Community [place] MEDICAREPolicy [id number], [place] Number: Repository [address]Uzt: (330 [id number] [phone] (HP) Date:2888-16-58PV [address] [address]SO: 10/11/2017 Secondary NOT GIVENUNK [place] Insurance:SELF PAY [facility] Number: Effective Repository Date:2017-10-11 10/11/2017 MACIEL Trejo Primary MACIEL Jackson [id number] Insurance:SUMMA CARE MELLOTTDOB: Community [place] MEDICAREPolicy [id number] [facility] [place] Number: Repository [address]Ssx: 330 [id number] [phone] (HP) Date:2131-26-88HG [address] [address]FO: 10/11/2017 Secondary NOT GIVENUNK [place] Insurance:SELF PAY [facility] Number: Effective Repository Date:2017-10-11 09/29/2017 Maciel Trejo Primary Maciel [place] [id number] Insurance:SUMMA CARE MellottDOB: Community [place] MEDICARE[place] [id number] [facility]iatric [facility] [place] Number: Repository [address]Sxn: 330 [id number] [phone] (HP) Date:8983-77-61SJ [address] [address]IE: 09/29/2017 Secondary NOT GIVENUNK [place] Insurance:SELF PAY [facility] Number: Effective Repository Date:2017-09-29 09/08/2017 Maciel Trejo Primary Maciel [place] [id number] Insurance:SUMMA CARE MellottDOB: Community [place] MEDICAREPolicy [id number] Psychiatric Center, [place] Number: Repository [address]Vfx: 330 [id number] [phone] (HP) Date:6103-74-98UD [address], [place] [address]OF: 09/08/2017 Secondary NOT GIVENUNK [place] Insurance:SELF PAY [facility] Number: Effective Repository Date:2017-09-06
== END ==
PROVIDERS: Family Provider Internal Medicine; PCP Internal Medicine; Referring Provider Internal Medicine; Visit Provider Internal Medicine
DX: E11.9 Type 2 diabetes mellitus without complications (principal); I10 Essential (primary) hypertension; Z79.01 Long term (current) use of anticoagulants; Z79.899 Other long term (current) drug therapy
CPT/HCPCS: 80053; 83036; 85027

== ENCOUNTER → 2018-11-24 12:19 | Outpatient (CLI) | payer MEDICARE, SELFPAY ==
[2018-11-24 13:08] LABS: Anion Gap 8 (5-15); BUN 16 mg/dL (7-18); BUN/Creat Ratio 24.7 RATIO (10-20); Calcium,Total 9.4 mg/dL (8.5-10.1); Chloride 109 mmol/L (98-107); Creatinine, Serum 0.65 mg/dL (0.55-1.02); EST Glomerular Filtration Rate 96 mL/min (>60); Est Glom Filt Rate - Afr Amer 116 mL/min (>60); Glucose 187 mg/dL (74-106); Potassium 4.3 mmol/L (3.5-5.1); Sodium Level 141 mmol/L (136-145)
== END ==
PROVIDERS: Family Provider Internal Medicine; PCP Internal Medicine; Referring Provider Internal Medicine; Visit Provider Internal Medicine
DX: E11.65 Type 2 diabetes mellitus with hyperglycemia (principal)
CPT/HCPCS: 80048

== ENCOUNTER → 2018-12-22 12:52 | Outpatient (CLI) | payer MEDICARE, SELFPAY ==
[2018-12-22 13:55] LABS: ALB/GLOB Ratio 1.2 RATIO (0.9-2.4); AST(SGOT) 16 U/L (15-37); Alanine Aminotransfer ALT/SGPT 23 U/L (13-56); Albumin, Serum 4.1 g/dL (3.2-5.0); Alkaline Phosphatase 94 U/L (45-117); Anion Gap 7 (5-15); BUN 20 mg/dL (7-18); BUN/Creat Ratio 31.5 RATIO (10-20); Calcium,Total 9.3 mg/dL (8.5-10.1); Chloride 107 mmol/L (98-107); Cholesterol 225 mg/dL (200); Creatinine, Serum 0.63 mg/dL (0.55-1.02); EST Glomerular Filtration Rate 98 mL/min (>60); Est Glom Filt Rate - Afr Amer 119 mL/min (>60); Globulin 3.4 g/dL (2.2-4.2); Glucose 218 mg/dL (74-106); High Density Lipoprotein 48 mg/dL; Potassium 4.1 mmol/L (3.5-5.1); Protein, Total 7.5 g/dL (6.4-8.2); Sodium Level 140 mmol/L (136-145); Triglycerides 299 mg/dL; Very Low Density Lipoprotein 60 mg/dL (5-40)
[2018-12-22 13:56] LABS: Hemoglobin A1c 7.8 % (4.2-6.3)
[2018-12-22 14:04] LABS: Microalbumin,Random Urine 30.8 mg/L (NO RANGE EST.)
== END ==
PROVIDERS: Family Provider Internal Medicine; PCP Internal Medicine; Referring Provider Internal Medicine; Visit Provider Internal Medicine
DX: E11.69 Type 2 diabetes mellitus with other specified complication (principal); E78.5 Hyperlipidemia, unspecified; I10 Essential (primary) hypertension
CPT/HCPCS: 80053; 80061; 82043; 82570; 83036

== ENCOUNTER → 2019-03-16 12:10 | Outpatient (CLI) | payer MEDICARE, SELFPAY ==
[2019-01-20 10:41] VITALS: BMI 24.7
[2019-03-16 13:12] LABS: Hematocrit 43.4 % (37-47); Hemoglobin 14.3 g/dL (12.0-15.0); Mean Corp Hgb Conc 32.9 g/dL (32-36); Mean Corpuscular Hgb 30.8 pg (27.0-32.0); Mean Corpuscular Volume 93.5 fL (81-99); Mean Platelet Vol. 10.7 fl (6.2-12.0); Platelet Count 345 K/mm3 (150-450); RBC Distribution Width CV 13.4 % (11.6-14.6); RBC Distribution Width SD 45.5 fl (35.1-43.9); Red Blood Count 4.64 M/mm3 (4.2-5.4); White Blood Count 5.2 K/mm3 (4.4-11.0)
[2019-03-16 13:20] LABS: ALB/GLOB Ratio 1.2 RATIO (0.9-2.4); AST(SGOT) 17 U/L (15-37); Alanine Aminotransfer ALT/SGPT 21 U/L (13-56); Albumin, Serum 4.2 g/dL (3.2-5.0); Alkaline Phosphatase 111 U/L (45-117); Anion Gap 6 (5-15); BUN 22 mg/dL (7-18); BUN/Creat Ratio 36.4 RATIO (10-20); Calcium,Total 9.9 mg/dL (8.5-10.1); Chloride 107 mmol/L (98-107); Cholesterol 233 mg/dL (200); EST Glomerular Filtration Rate 104 mL/min (>60); Est Glom Filt Rate - Afr Amer 126 mL/min (>60); Globulin 3.5 g/dL (2.2-4.2); Glucose 179 mg/dL (74-106); High Density Lipoprotein 57 mg/dL; Potassium 4.5 mmol/L (3.5-5.1); Protein, Total 7.7 g/dL (6.4-8.2); Sodium Level 140 mmol/L (136-145); Triglycerides 224 mg/dL; Very Low Density Lipoprotein 45 mg/dL (5-40)
[2019-03-16 13:25] LABS: Hemoglobin A1c 7.7 % (4.2-6.3)
== END ==
PROVIDERS: Family Provider Internal Medicine; PCP Internal Medicine; Referring Provider Internal Medicine; Visit Provider Internal Medicine
DX: E11.69 Type 2 diabetes mellitus with other specified complication (principal); E78.5 Hyperlipidemia, unspecified; I10 Essential (primary) hypertension
CPT/HCPCS: 80053; 80061; 83036; 85027

== ENCOUNTER → 2020-02-22 06:39 | Outpatient (CLI) | payer MEDICARE, SELFPAY ==
[2020-02-08 11:10] VITALS: BMI 27.1
--- NOTE | 2020-02-22 06:40 | RAD_ITS ---
HISTORY: SOB SINCE JUN 2019 ADDITIONAL HISTORY: None provided. COMPARISON: 10/11/2017 EXAMINATION/TECHNIQUE: XR Chest 2 Views Number of images including paperwork: 2 FINDINGS: LUNGS AND PLEURA: No consolidation, mass or pleural effusion. CARDIAC SILHOUETTE: Unremarkable. MEDIASTINUM AND RUPAL: Aortic calcification. UPPER ABDOMEN: Unremarkable. SKELETON AND SOFT TISSUES: No acute findings. Degenerative changes. OTHER DEVICES AND HARDWARE: None. RAD/Chest PA and Lateral IMPRESSION: No acute cardiopulmonary abnormality. at 0814 Reported and signed by: Deborah Cali MD Electronically Signed: Deborah Cali MD at 8:14 EDT Tel , Service support ,
--- NOTE | 2020-02-22 06:40 | ECHOD_ITS ---
Reason For Study: DYSPNEA/SOB Procedure This was a 2D Doppler, Color Flow transthoracic echocardiogram. The exam was of adequate technical quality. Exam performed in department. Left Ventricle Normal LV size. Left ventricular systolic function is normal. The estimated ejection fraction is 65 %. No regional wall motion abnormalities noted. Right Ventricle Normal RV size. Normal systolic function. Atria The left atrium is moderately enlarged. Normal right atrium. No doppler evidence for ASD. Mitral Valve There is moderate to severe mitral annular calcification. Mild (1+) eccentric mitral valve insufficiency. Stable appearing mechanical mitral valve apparatus. Tricuspid Valve Normal tricuspid valve. Trivial tricuspid valve insufficiency. Right ventricular systolic pressure estimated to be 27 mmHg. Aortic Valve Trisinus/trileaflet aortic valve. Moderate diffuse aortic valve thickening. Mild diffuse aortic valve calcification. Severe focal aortic valve calcification. Moderate aortic stenosis. Trivial aortic valve insufficiency. Pulmonic Valve The pulmonic valve is not well visualized. Great Vessels Normal sized aortic root. Calcified aortic root. Pericardium/Pleural No pericardial effusion. MMode/2D Measurements & Calculations LVIDd: 5.1 cm IVSd: 0.98 cm LVOT diam: 1.8 cm LVIDs: 3.1 cm LVPWd: 1.0 cm LVOT area: 2.4 cm2 RVDd: 3.0 cm FS: 40.3 % Ao root diam: 2.8 cm LAV(MOD-bp): 89.8 ml LA A4 area: 25.2 cm2 LAV(MOD-bp) Indexed: 54.7 ml/m2 LAV(MOD-sp2): 90.6 ml LAV(MOD-sp4): 89.5 ml LA dimension(2D): 4.8 cm Time Measurements MV dec time: 0.20 sec Doppler Measurements & Calculations MV E max akash: 121.5 cm/sec Lat Peak E' Akash: 7.8 cm/sec Med Peak E' Akash: 4.8 cm/sec MV A max akash: 103.8 cm/sec E/E' lat: 15.6 E/E' med: 25.1 MV E/A: 1.2 MV V2 max: 127.0 cm/sec Ao V2 max: 271.2 cm/sec LV V1 max: 111.5 cm/sec MV max P.5 mmHg Ao max P.4 mmHg LV V1 max P.0 mmHg MV V2 mean: 80.0 cm/sec Ao V2 mean: 204.9 cm/sec LV V1 mean P.7 mmHg MV mean P.9 mmHg Ao mean P.1 mmHg LV V1 mean: 78.2 cm/sec MV V2 VTI: 25.5 cm Ao V2 VTI: 59.9 cm LV V1 VTI: 22.4 cm MVA(VTI): 2.1 cm2 HAKEEM(I,D): 0.91 cm2 HAKEEM(V,D): 1.0 cm2 SV(LVOT): 54.7 ml PA V2 max: 94.7 cm/sec TR max akash: 243.0 cm/sec TR max P.6 mmHg Interpretation Summary Left ventricular systolic function is normal. The estimated ejection fraction is 65 %. The left atrium is moderately enlarged. There is moderate to severe mitral annular calcification. Stable appearing mechanical mitral valve apparatus. Mild (1+) eccentric mitral valve insufficiency. Trivial tricuspid valve insufficiency. Moderate aortic stenosis. Trivial aortic valve insufficiency. Calcified aortic root. Right ventricular systolic pressure estimated to be 27 mmHg. Transmitral diastolic flow velocities suggest diastolic dysfunction (pseudonormal pattern). Ordering Physician: Akin^Wesley^^^ Referring Physician: Gwen David Performed By: Alta Gabriel, RDCS, RVT
[2020-02-22 07:51] LABS: Absolute Neutrophil Count 2.1 X10^3/uL (2.0-7.7); Basophil# 0.05 X10^3/uL; Basophil% 1.1 % (0-1); Eosinophil# 0.22 X10^3/uL; Eosinophils% 4.9 % (0-5); Hematocrit 41.1 % (37-47); Lymphocyte % 35.6 % (19-41); Mean Corp Hgb Conc 31.6 g/dL (32-36); Mean Corpuscular Volume 97.9 fL (81-99); Mean Platelet Vol. 10.5 fl (6.2-12.0); Monocyte# 0.49 X10^3/uL; Monocyte% 10.9 % (0-10); NRBC Flagged by Analyzer 0 % (0-5); Neutrophil # 2.11 X10^3/uL (2.7-7.7); Neutrophil % 47.1 % (47-70); Platelet Count 310 K/mm3 (150-450); RBC Distribution Width CV 13.3 % (11.6-14.6); RBC Distribution Width SD 47.8 fl (35.1-43.9); White Blood Count 4.5 K/mm3 (4.4-11.0)
[2020-02-22 08:30] LABS: AST(SGOT) 20 U/L (15-37); Alanine Aminotransfer ALT/SGPT 21 U/L (13-56); Albumin, Serum 3.8 g/dL (3.2-5.0); Alkaline Phosphatase 82 U/L (45-117); Anion Gap 7 (5-15); BUN 21 mg/dL (7-18); BUN/Creat Ratio 40.2 RATIO (10-20); Bilirubin, Direct 0.11 mg/dL (0.00-0.30); Calcium,Total 9.2 mg/dL (8.5-10.1); Chloride 106 mmol/L (98-107); Cholesterol 216 mg/dL (200); Creatinine, Serum 0.52 mg/dL (0.55-1.02); EST Glomerular Filtration Rate 122 mL/min (>60); Est Glom Filt Rate - Afr Amer 148 mL/min (>60); Globulin 3.6 g/dL (2.2-4.2); Glucose 135 mg/dL (74-106); High Density Lipoprotein 48 mg/dL; Potassium 3.7 mmol/L (3.5-5.1); Protein, Total 7.4 g/dL (6.4-8.2); Sodium Level 139 mmol/L (136-145); Thyroid Stim Hormone (TSH) 0.88 uIU/mL (0.358-3.74); Triglycerides 202 mg/dL; Very Low Density Lipoprotein 40 mg/dL (5-40)
--- NOTE | 2020-02-22 09:38 | STRESSREP_ITS ---
Stress Test Report Date: 02-22-2020 Procedure: Pharmacologic stress nuclear imaging study Indications: Shortness of breath/dyspnea on exertion; status post MVR Consent: Per the patient Procedure: The patient underwent pharmacologic (Regadenoson) evaluation with a peak heart rate of 106 beats per minute (71 %predicted maximal heart rate) and a peak blood pressure of 138/70 mmHg. The baseline ECG demonstrated sinus rhythm. The peak pharmacologic ECG demonstrated no obvious ECG changes. There was a rare PVC during pharmacologic infusion and recovery. There was no complaint of chest discomfort during pharmacologic infusion or recovery. The examination was discontinued secondary to completion of protocol. Impression: 1. Pharmacologic (Regadenoson) evaluation 2. Peak pharmacologic ECG with with no obvious ECG changes. 3. There was a rare PVC during pharmacologic infusion and recovery. 4. Nuclear images pending Myocardial perfusion imaging study: Technique: The patient was injected with 11.9 millicuries of technetium 99m Cardiolite and subsequently rest SPECT Cardiolite nuclear imaging was obtained in the horizontal long, vertical long, and short axis views. The patient underwent pharmacologic (Regadenoson) evaluation with a peak heart rate of 106 beats per minute (71 % percent predicted maximal heart rate) and a peak blood pressure of 138/70 mmHg. The patient was injected with 32.0 millicuries of technetium 99m Cardiolite and subsequently stress SPECT Cardiolite nuclear imaging was obtained in the horizontal long, vertical long, and short axis views. A gated Cardiolite study at peak stress was obtained. Interpretation: Rest and stress SPECT Cardiolite nuclear imaging status post realignment, normalization, and attenuation correction demonstrate relative uniform tracer uptake and myocardial perfusion appearing within normal limits. There is end systolic thickening and brightening. The gated Cardiolite study demonstrates myocardial thickening and inward wall motion. The reported LVEF is 69 %. Impression: 1. Rest and stress SPECT Cardiolite nuclear imaging demonstrate relative uniform tracer uptake and myocardial perfusion appearing within normal limits. 2. The gated Cardiolite study reports an LVEF of 69 %. This note was generated with [employer] software. It may contain incorrect words, spelling, and punctuation that were not noted in checking the note before signing.
== END ==
PROVIDERS: PCP Internal Medicine; Referring Provider Internal Medicine Cardiovascular Disease; Visit Provider Internal Medicine Cardiovascular Disease
DX: R06.00 Dyspnea, unspecified (principal); Z95.2 Presence of prosthetic heart valve; I49.1 Atrial premature depolarization; I49.3 Ventricular premature depolarization; I10 Essential (primary) hypertension; E78.00 Pure hypercholesterolemia, unspecified
CPT/HCPCS: 36415; 71046; 78452; 80048; 80061; 80076; 84443; 85025; 93017; 93306; A9500; A4216; J2785

== ENCOUNTER → 2020-03-04 | Outpatient (CLI) | payer MEDICARE, SELFPAY ==
[2020-02-08 11:10] VITALS: BMI 27.1
[2020-03-04 14:32] LABS: Hemoglobin A1c 6.5 % (3.8-5.6)
== END | disposition home or self-care (01) ==
LOC: LABSPEC 12:12
PROVIDERS: PCP Internal Medicine; Referring Provider Internal Medicine; Visit Provider Internal Medicine
DX: E11.9 Type 2 diabetes mellitus without complications (principal)
CPT/HCPCS: 83036

== ENCOUNTER → 2020-04-03 07:53 | Outpatient (CLI) | payer MEDICARE, SELFPAY ==
[2020-02-08 11:10] VITALS: BMI 27.1
[2020-03-21 15:49] VITALS: BMI 27.2
--- NOTE | 2020-04-04 06:50 | PFTCOMP ---
COMPLETE PULMONARY FUNCTION TEST INTERPRETATION Brief HPI: Patient is a 70 year old female, currently under the care of Dr. Gerardo, who presents to [facility] for complete pulmonary function tests secondary to diagnosis of dyspnea. Respiratory therapist reports good effort and reproducible results. Interpretation: Forced expiration spirometry shows no large airways obstructive ventilatory defect with an FEV1 of 108% predicted. There is no significant bronchodilator response by strict ATS criteria. Spirograms are of good quality and plateau normally. The respiratory flow volume loop shows a normal pattern. Lung volumes by body plethysmography show a normal total lung capacity at 4.3 L, 102% predicted. All other lung volumes are within normal limits. Diffusion capacity by carbon monoxide is normal at 98% predicted. The airway resistance is normal. No previous pulmonary function tests were available for review. Impression: These pulmonary function tests are within normal limits.
== END ==
PROVIDERS: PCP Internal Medicine; Referring Provider Physician Assistant Medical; Visit Provider Physician Assistant Medical
DX: R06.00 Dyspnea, unspecified (principal)
CPT/HCPCS: 94060; 94726; 94729

== ENCOUNTER → 2020-04-08 | Outpatient (CLI) | payer MEDICARE, SELFPAY ==
[2020-03-21 15:49] VITALS: BMI 27.2
== END | disposition home or self-care (01) ==
LOC: LABSPEC 15:21
PROVIDERS: PCP Internal Medicine; Referring Provider Clinical Nurse Specialist; Visit Provider Clinical Nurse Specialist
DX: Z12.11 Encounter for screening for malignant neoplasm of colon (principal)
CPT/HCPCS: 82274

== ENCOUNTER → 2020-06-27 09:05 | Outpatient (CLI) | payer MEDICARE, SELFPAY ==
[2020-06-21 12:54] VITALS: BMI 27.6
== END ==
PROVIDERS: PCP Internal Medicine; Referring Provider Physician Assistant Medical; Visit Provider Physician Assistant Medical
DX: Z01.812 Encounter for preprocedural laboratory examination (principal); I35.0 Nonrheumatic aortic (valve) stenosis; R06.00 Dyspnea, unspecified; Z95.2 Presence of prosthetic heart valve
CPT/HCPCS: 87635; C9803; U0003

== ENCOUNTER 2020-07-02 11:56 | Outpatient (CLI) | payer MEDICARE, SELFPAY ==
[2020-06-21 12:54] VITALS: BMI 27.6
[2020-06-25 10:41] LABS: BNP,B-Type NATRIURETIC PEPTIDE 64.6 pg/mL (0-100)
--- NOTE | 2020-07-02 07:45 | HP.PCM_ITS ---
Problem List (1) History of mitral valve replacement with mechanical valve Status: Chronic Comment: 31mm [place] Mechanical Prosthesis 09/29/01 @ [facility] History and Physical Date of Admission: 07/02/20 [facility] [address] [place] [address] OFFICE VISIT Date of Service: 06/21/20 MR#: [id number] Acct: [id number] Name: MACIEL BUCIO Rep #: [id number] Provider: VLADISLAV Woodward Age/Sex: 70/F [place] [facility] Status: Signed HPI HPI History of Present Illness Surgical H&P: Yes Details: MACIEL BUCIO, is a 70 year old white female who presents to the office today for a cardiovascular outpatient follow-up with a history of mitral valve disease status post mitral valve replacement with a #31 mm [place] prosthetic mechanical mitral valve apparatus in 2001 at [facility], aortic valve stenosis-mild, PACs, PVCs, and paroxysmal VT, hypertension, and hyperlipidemia. She was in our office earlier this summer for concerns over shortness of breath. We did obtain an echocardiogram, note results are noted below. She does have moderate to severe mitral calcification and moderate aortic stenosis. She did also have a pulmonary function test which was normal. Pt sts that prior to this week she feels her breathing was doing okay. However she notes that since the weather got warmer she has noted and increase in SOB. She does not have any chest pain/heaviness. She does not have any orthopnea. She does occasionally feel palpitations. She does not have any lightheadedness/dizziness. She does not have any edema. 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 Is patient in pain?: No Allergies Calcium Channel Blocking Agent Dilt [Calcium Channel Blocking Agents-Win] Allergy (Verified 06/21/20 12:52) Rash Medications Atenolol [Tenormin (beta esau)] 50 mg PO DAILY 07/10/13 [History Confirmed 06/21/20] Gemfibrozil [Lopid] 600 mg PO BIDAC 07/10/13 [History Confirmed 06/21/20] Lisinopril [Zestril] 10 mg PO DAILY 07/10/13 [History Confirmed 06/21/20] Acetaminophen [Tylenol Tablet] 650 mg PO Q6H PRN PRN tab 10/20/17 [Rx Confirmed 06/21/20] Warfarin [Coumadin] 5 mg PO TuThSa@1700 tab 10/20/17 [Rx Confirmed 06/21/20] Warfarin [Coumadin] 6 mg PO SuMoWeFr@1700 tab 10/20/17 [Rx Confirmed 06/21/20] atorvastatin 40 mg tablet 40 mg PO QDAY 12/21/17 [History Confirmed 06/21/20] multivitamin 1 tab PO QDAY 12/21/17 [History Confirmed 06/21/20] insulin glargine 100 unit/mL (3 mL) subcutaneous pen 40 unit SC QHS ml 02/08/20 [History Confirmed 06/21/20] metformin 500 mg tablet 2,000 mg PO DAILY tab 02/08/20 [History Confirmed 06/21/20] [facility] Medical History Nonrheumatic aortic (valve) stenosis (Acute) Type 2 diabetes mellitus (Chronic) Premature ventricular contraction (Acute) Premature atrial contraction (Acute) Paroxysmal ventricular tachycardia (Acute) Essential hypertension (Chronic) Paroxysmal atrial fibrillation (Acute) Mitral valve disorder (Chronic) Palpitations (Chronic) Abnormal electrocardiogram (Chronic) Encounter for long-term current use of high risk medication (Chronic) Dyslipidemia (Chronic) SIRS (systemic inflammatory response syndrome) (Acute) Bacteremia (Acute) Chest pain (Acute) Chest tightness (Acute) Dyspnea (Acute) Murmur, functional (Acute) Atrial fibrillation (Inactive) Hypertension (Inactive) Ventricular tachycardia (Inactive) Surgical History History of mitral valve replacement with mechanical valve (Chronic ~09/29/01) H/O shoulder replacement (Resolved) Bioprosthetic mitral valve replacement, current hospitalization (Inactive) Family History Mother CAD (coronary artery disease) Brother hyperlipidemia Brother Hypertension Father CAD (coronary artery disease) Social History (Updated 06/21/20 @ 16:07 by Raven LOOMIS, PA) Smoking Status: Former smoker alcohol intake: never substance use type: does not use caffeine: Yes Type: coffee Number of servings: 1 what type of physical activity do you participate in: walking frequency: daily duration: 15-30 minutes/day seatbelt use: always do you feel safe at home: Yes ROS Const Const: Negative for fatigue, weakness, fever(s) or headache(s) Eyes Eyes: Negative for blind spots, loss of peripheral vision or transient loss of vision ENT ENT: Negative for headache(s), dizziness, tinnitus or Nosebleed/epistaxis Cardio Chest Pain: No Palpitations: No Edema: None Muscle aches with walking: None Resp Respiratory: Positive for SOB with activity; negative for SOB at rest, SOB orthopnea\SOB lying down or Cough GI GI: Negative nausea, vomiting, heartburn or vomiting blood/hematemesis : Negative for hematuria Musc Musc: Negative for muscle aches/ myalgia Neuro Neuro: Negative for dizziness, lightheadedness, near syncope, syncope, orthostatic symptoms, headache(s) or weakness Marcelino Hematologic/Lymphatic: Negative for easy bleeding Endo Endo: Negative for fatigue Cardiology Exam Const Appearance: cooperative, healthy appearing, comfortable, no acute distress, well developed and well groomed Nutritional Appearance: overweight Orientation: alert, awake and oriented x3 Head Head: normal to inspection, normocephalic and atraumatic Ears: hearing grossly normal bilaterally Nose: external nose normal Face and Sinus: face symmetric Eyes Eyelids: eyelids normal Conjunctivae: conjunctivae normal Pupils: PERRL EOM: EOM intact bilaterally Neck Neck: normal visual inspection, full ROM and no JVD Carotids: normal carotid upstroke Chest Chest inspection: normal inspection of the chest, symmetric chest movement and normal respiratory effort; negative cough Auscultation: Bilateral: Clear to Auscultation Cardio Rate: regular rate Rhythm: regular rhythm Heart sounds: S2 normal and crisp prosthetic S1; negative rub or gallop Murmur: Grade 2/6, harsh, mid systolic, LLSB, LVOT and sternal notch GI GI: normal to inspection, soft and bowel sounds present Neuro General: alert, awake, oriented x3 and moves all extremities Skin Skin: no rashes or lesions noted Extremities Pulses: Normal: Right Posterior Tibial Pulse, Left Posterior Tibial Pulse, Right Radial Pulse, Left Radial Pulse Lower Extremity Edema: None: Bilateral Psych Psychological: normal affect Assessment & Plan 1. Essential hypertension I10 Plan Blood pressure is well controlled on current medications, we do not recommend any changes at this time. 2. Paroxysmal atrial fibrillation I48.0 Plan Patient has not had any symptomatic recurrence however she will continue with her atenolol and her Coumadin. She is on her Coumadin for her mechanical valve. 3. History of mitral valve replacement with mechanical valve Z95.[address] [place] Mechanical Prosthesis 09/29/01 @ [facility] Plan With patient's continued shortness of breath would like to proceed with a LAURA to evaluate stability of valve. Patient is agreeable with this. Orders Orders: BNP,B-Type NATRIURETIC PEPTIDE Today Echo Transesophageal (LAURA) Today COVID 19, MADDISON SENDOUT Today 4. Nonrheumatic aortic (valve) stenosis I35.0 Plan With patient's continued shortness of breath would like to obtain a LAURA to get a better evaluation of her valves. Orders Orders: BNP,B-Type NATRIURETIC PEPTIDE Today Echo Transesophageal (LAURA) Today COVID 19, MADDISON SENDOUT Today 5. Dyslipidemia E78.5 Plan Patient is due to have lipids checked in the near future. She will continue with her current dose of gemfibrozil and atorvastatin at this time. 6. NINO (dyspnea on exertion) R06.00 Plan With patient's continued shortness of breath with exertion would like to obtain a BN P, will also proceed with a LAURA. Patient Instructions To further evaluate your shortness of breath, we will proceed with a LAURA to take a better look at your valve. I will call you with the date on time of the procedure. The night before the procedure you can not have anything to eat or drink after midnight. In the morning with a small sip of water you can take: atenolol, gemfibrozil, lisinopril. The night before your procedure decrease your night insulin to 20 units. You will need a motor driver the day of the procedure. You also need to have a COVID test done, this needs to be done 4 days prior to your procedure. Orders Orders: BNP,B-Type NATRIURETIC PEPTIDE Today Echo Transesophageal (LAURA) Today COVID 19, MADDISON SENDOUT Today Plan Detail Follow Up 6 Months (PFM/MMM) Coding Level of Care Code Off vis,est,level 4 Diagnoses Essential hypertension I10 Paroxysmal atrial fibrillation I48.0 History of mitral valve replacement with mechanical valve Z95.2 Nonrheumatic aortic (valve) stenosis I35.0 Dyslipidemia E78.5 NINO (dyspnea on exertion) R06.00 Coding Level of Care Code Off vis,est,level 4 Diagnoses Essential hypertension I10 Paroxysmal atrial fibrillation I48.0 History of mitral valve replacement with mechanical valve Z95.2 Nonrheumatic aortic (valve) stenosis I35.0 Dyslipidemia E78.5 NINO (dyspnea on exertion) R06.00 Supplemental Info Supplemental Information Transthoracic echocardiogram: 10/12/2017 Interpretation Summary Normal LV size. Left ventricular systolic function is normal. The estimated ejection fraction is 60 %. Mean aortic valve gradient 16 mmHg. Stable appearing mechanical mitral valve apparatus. Compared to prior study, there is no significant change. Echocardiogram: 02-22-2020 Interpretation Summary Left ventricular systolic function is normal. The estimated ejection fraction is 65 %. The left atrium is moderately enlarged. There is moderate to severe mitral annular calcification. Stable appearing mechanical mitral valve apparatus. Mild (1+) eccentric mitral valve insufficiency. Trivial tricuspid valve insufficiency. Moderate aortic stenosis. Trivial aortic valve insufficiency. Calcified aortic root. Right ventricular systolic pressure estimated to be 27 mmHg. Transmitral diastolic flow velocities suggest diastolic dysfunction (pseudonormal pattern). Transesophageal echocardiogram: 10-14-17 Interpretation Summary There is no evidence of a mass or vegetation. This does not rule out endocarditis. The estimated ejection fraction is 65 %. No thrombus is detected in the left atrial appendage. Normal prosthetic mitral valve. No evidence of vegetations noted. Stable appearing mechanical mitral valve apparatus. Mild (1+) tricuspid valve insufficiency. Right ventricular systolic pressure estimated to be 21 mmHg. Trivial aortic valve insufficiency. Stress Test Report Date: 02-22-2020 Procedure: Pharmacologic stress nuclear imaging study Indications: Shortness of breath/dyspnea on exertion; status post MVR Consent: Per the patient Procedure: The patient underwent pharmacologic (Regadenoson) evaluation with a peak heart rate of 106 beats per minute (71 %predicted maximal heart rate) and a peak blood pressure of 138/70 mmHg. The baseline ECG demonstrated sinus rhythm. The peak pharmacologic ECG demonstrated no obvious ECG changes. There was a rare PVC during pharmacologic infusion and recovery. There was no complaint of chest discomfort during pharmacologic infusion or recovery. The examination was discontinued secondary to completion of protocol. Impression: 1. Pharmacologic (Regadenoson) evaluation 2. Peak pharmacologic ECG with with no obvious ECG changes. 3. There was a rare PVC during pharmacologic infusion and recovery. 4. Nuclear images pending Myocardial perfusion imaging study: Technique: The patient was injected with 11.9 millicuries of technetium 99m Cardiolite and subsequently rest SPECT Cardiolite nuclear imaging was obtained in the horizontal long, vertical long, and short axis views. The patient underwent pharmacologic (Regadenoson) evaluation with a peak heart rate of 106 beats per minute (71 % percent predicted maximal heart rate) and a peak blood pressure of 138/70 mmHg. The patient was injected with 32.0 millicuries of technetium 99m Cardiolite and subsequently stress SPECT Cardiolite nuclear imaging was obtained in the horizontal long, vertical long, and short axis views. A gated Cardiolite study at peak stress was obtained. Interpretation: Rest and stress SPECT Cardiolite nuclear imaging status post realignment, normalization, and attenuation correction demonstrate relative uniform tracer uptake and myocardial perfusion appearing within normal limits. There is end systolic thickening and brightening. The gated Cardiolite study demonstrates myocardial thickening and inward wall motion. The reported LVEF is 69 %. Impression: 1. Rest and stress SPECT Cardiolite nuclear imaging demonstrate relative uniform tracer uptake and myocardial perfusion appearing within normal limits. 2. The gated Cardiolite study reports an LVEF of 69 %. Labs LDL Cholesterol 128 mg/dL (0-130) 02/22/20 HDL Cholesterol 48 mg/dL (40-) 02/22/20 Triglycerides 202 mg/dL (-199) H 02/22/20 VLDL Cholesterol 40 mg/dL (5-40) 02/22/20 Diagnostics Echocardiogram 02/22/20 Stress Test Nuclear Medicine 02/22/20 Stress Test 02/22/20 Chest X-Ray 02/22/20 Pulmonary Pulmonary Function Test 04/04/20 COVID (Procedure Consent) Procedure Criteria Procedure Criteria: Yes Elective The surgeon/proceduralist and patient have discussed in detail the risk of exposure to and/or potential harm posed by the COVID-19 virus with having a surgery/procedure at this time versus the risk of? delaying the surgery/procedure. It is not possible to know either the risk of delaying the surgery or procedure or chance of getting an infection with perfect accuracy, but a joint decision was made between the patient and the surgeon/proceduralist ?to proceed at this time with the scheduled surgery/procedure as indicated on the consent form. 06/21/20 1607 <Electronically signed by Raven Vasquez> Date _ Raven LOOMIS I have re-examined the patient. There are no clinical changes since date of exam.
--- NOTE | 2020-07-02 11:58 | ECHOTEE_ITS ---
Reason For Study: DYSPNEA Medication LAURA probe 6VT-D (SN [id number]) passed without difficulty. No complications were noted. Cetacaine Topical [place] given X3 orally. Versed 2 mg given slow IVP. Fentanyl 100 mcg given slow IVP. Performed a rapid injection of agitated mix of 9 cc saline and 1cc air to assess for atrial septal defect. (Saline Bubble X 2). Left Ventricle Normal LV size. Left ventricular systolic function is normal. The estimated ejection fraction is 60 %. No regional wall motion abnormalities noted. Right Ventricle Normal RV size. Normal systolic function. Atria No doppler evidence for ASD. Bubble contrast study negative for right to left interatrial shunt. Moderate to severe left atrial enlargement. There is no sponatenous contrast in the left atrium. No thrombus is detected in the left atrial appendage. Normal right atrium. There is no sponatenous contrast in the right atrium. No right atrial/appendage thrombus identified. Mitral Valve Stable appearing mechanical mitral valve apparatus. MIld (1+) transvalvular insufficiency of the mitral valve. Tricuspid Valve Normal tricuspid valve. Trivial tricuspid valve insufficiency. Aortic Valve Trisinus/trileaflet aortic valve. Moderate diffuse aortic valve thickening. Moderate diffuse aortic valve calcification. Aortic valve area by planimetry: 0.7 cm??: Compatible with severe aortic valve stenosis. Trivial aortic valve insufficiency. Pulmonic Valve The pulmonic valve is not well visualized. Vessels Calcified aortic root. Mild atherosclerosis of the descending aorta. Pericardium No pericardial effusion. Interpretation Summary Left ventricular systolic function is normal. The estimated ejection fraction is 60 %. Moderate to severe left atrial enlargement. There is no sponatenous contrast in the left atrium. No thrombus is detected in the left atrial appendage. Stable appearing mechanical mitral valve apparatus. MIld (1+) transvalvular insufficiency of the mitral valve. Trivial tricuspid valve insufficiency. Moderate diffuse aortic valve thickening. Moderate diffuse aortic valve calcification. Aortic valve area by planimetry: 0.7 cm??: Compatible with severe aortic valve stenosis. Trivial aortic valve insufficiency. Bubble contrast study negative for right to left interatrial shunt. Calcified aortic root. Mild atherosclerosis of the descending aorta. Ordering Physician: Raven Woodward Referring Physician: JESSICA HARDY Performed By: Maru Amos, CHRIS, RVT
== END 2020-07-02 15:00 | disposition home or self-care (01) ==
LOC: CVS 11:57
PROVIDERS: Physician Assistant Medical; PCP Internal Medicine; Referring Provider Internal Medicine Cardiovascular Disease; Visit Provider Internal Medicine Cardiovascular Disease
DX: R06.02 Shortness of breath (principal); I35.0 Nonrheumatic aortic (valve) stenosis; Z95.2 Presence of prosthetic heart valve
CPT/HCPCS: 36415; 83880; 93312; 93320; 93325; J7040; A4216

== ENCOUNTER 2020-07-08 09:23 | Outpatient (RCR) | payer MEDICARE, SELFPAY ==
[2020-06-21 12:54] VITALS: BMI 27.6
[2020-07-08 10:56] LABS: International Normalized Ratio 2.9; Prothrombin Time (Protime)PT. 29.7 SECONDS (11.7-14.9)
== END 2020-07-08 18:00 | disposition home or self-care (01) ==
LOC: LAB 09:23
PROVIDERS: PCP Internal Medicine; Referring Provider Internal Medicine Cardiovascular Disease; Visit Provider Internal Medicine Cardiovascular Disease
DX: Z95.2 Presence of prosthetic heart valve (principal); Z79.01 Long term (current) use of anticoagulants
CPT/HCPCS: 36415; 85610

== ENCOUNTER 2020-07-19 08:54 | Day surgery (SDC) | payer MEDICARE, SELFPAY ==
[2020-06-21 12:54] VITALS: BMI 27.6
[2020-07-08 10:20] LABS: Hematocrit 43.7 % (37-47); Hemoglobin 13.6 g/dL (12.0-15.0); Mean Corp Hgb Conc 31.1 g/dL (32-36); Mean Corpuscular Hgb 30.2 pg (27.0-32.0); Mean Corpuscular Volume 97.1 fL (81-99); Mean Platelet Vol. 10.5 fl (6.2-12.0); Platelet Count 334 K/mm3 (150-450); RBC Distribution Width CV 13.5 % (11.6-14.6); RBC Distribution Width SD 48.4 fl (35.1-43.9); White Blood Count 5.2 K/mm3 (4.4-11.0)
[2020-07-08 10:32] LABS: Partial Thromboplast Time 41.7 Seconds (24.1-36.2)
[2020-07-08 10:55] LABS: Anion Gap 7 (5-15); BUN 20 mg/dL (7-18); BUN/Creat Ratio 34.2 RATIO (10-20); Calcium,Total 9.7 mg/dL (8.5-10.1); Chloride 108 mmol/L (98-107); Creatinine, Serum 0.58 mg/dL (0.55-1.02); EST Glomerular Filtration Rate 107 mL/min (>60); Est Glom Filt Rate - Afr Amer 130 mL/min (>60); Glucose 142 mg/dL (74-106); Potassium 4.2 mmol/L (3.5-5.1); Sodium Level 140 mmol/L (136-145)
[2020-07-18 08:05] VITALS: BMI 27.6
--- NOTE | 2020-07-19 07:00 | HP_ITS ---
HPI HPI History of Present Illness Surgical H&P: Yes Details: MACIEL BUCIO, is a 70 year old white female who presents to the office today for a cardiovascular outpatient follow-up with a history of mitral valve disease status post mitral valve replacement with a #31 mm [place] prosthetic mechanical mitral valve apparatus in 2001 at [facility], aortic valve stenosis-mild, PACs, PVCs, and paroxysmal VT, hypertension, and hyperlipidemia. She was in our office earlier this summer for concerns over shortness of breath. We did obtain an echocardiogram, note results are noted below. She does have moderate to severe mitral calcification and moderate aortic stenosis. She did also have a pulmonary function test which was normal. Pt sts that prior to this week she feels her breathing was doing okay. However she notes that since the weather got warmer she has noted and increase in SOB. She does not have any chest pain/heaviness. She does not have any orthopnea. She does occasionally feel palpitations. She does not have any lightheadedness/dizziness. She does not have any edema. 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 Is patient in pain?: No Allergies Calcium Channel Blocking Agent Dilt [Calcium Channel Blocking Agents-Win] Allergy (Verified 06/21/20 12:52) Rash Medications Atenolol [Tenormin (beta esau)] 50 mg PO DAILY 07/10/13 [History Confirmed 06/21/20] Gemfibrozil [Lopid] 600 mg PO BIDAC 07/10/13 [History Confirmed 06/21/20] Lisinopril [Zestril] 10 mg PO DAILY 07/10/13 [History Confirmed 06/21/20] Acetaminophen [Tylenol Tablet] 650 mg PO Q6H PRN PRN tab 10/20/17 [Rx Confirmed 06/21/20] Warfarin [Coumadin] 5 mg PO TuThSa@1700 tab 10/20/17 [Rx Confirmed 06/21/20] Warfarin [Coumadin] 6 mg PO SuMoWeFr@1700 tab 10/20/17 [Rx Confirmed 06/21/20] atorvastatin 40 mg tablet 40 mg PO QDAY 12/21/17 [History Confirmed 06/21/20] multivitamin 1 tab PO QDAY 12/21/17 [History Confirmed 06/21/20] insulin glargine 100 unit/mL (3 mL) subcutaneous pen 40 unit SC QHS ml 02/08/20 [History Confirmed 06/21/20] metformin 500 mg tablet 2,000 mg PO DAILY tab 02/08/20 [History Confirmed 06/21/20] [facility] Medical History Nonrheumatic aortic (valve) stenosis (Acute) Type 2 diabetes mellitus (Chronic) Premature ventricular contraction (Acute) Premature atrial contraction (Acute) Paroxysmal ventricular tachycardia (Acute) Essential hypertension (Chronic) Paroxysmal atrial fibrillation (Acute) Mitral valve disorder (Chronic) Palpitations (Chronic) Abnormal electrocardiogram (Chronic) Encounter for long-term current use of high risk medication (Chronic) Dyslipidemia (Chronic) SIRS (systemic inflammatory response syndrome) (Acute) Bacteremia (Acute) Chest pain (Acute) Chest tightness (Acute) Dyspnea (Acute) Murmur, functional (Acute) Atrial fibrillation (Inactive) Hypertension (Inactive) Ventricular tachycardia (Inactive) Surgical History History of mitral valve replacement with mechanical valve (Chronic ~09/29/01) H/O shoulder replacement (Resolved) Bioprosthetic mitral valve replacement, current hospitalization (Inactive) Family History Mother CAD (coronary artery disease) Brother hyperlipidemia Brother Hypertension Father CAD (coronary artery disease) Social History (Updated 06/21/20 @ 16:07 by Raven LOOMIS, PA) Smoking Status: Former smoker alcohol intake: never substance use type: does not use caffeine: Yes Type: coffee Number of servings: 1 what type of physical activity do you participate in: walking frequency: daily duration: 15-30 minutes/day seatbelt use: always do you feel safe at home: Yes ROS Const Const: Negative for fatigue, weakness, fever(s) or headache(s) Eyes Eyes: Negative for blind spots, loss of peripheral vision or transient loss of vision ENT ENT: Negative for headache(s), dizziness, tinnitus or Nosebleed/epistaxis Cardio Chest Pain: No Palpitations: No Edema: None Muscle aches with walking: None Resp Respiratory: Positive for SOB with activity; negative for SOB at rest, SOB orthopnea\SOB lying down or Cough GI GI: Negative nausea, vomiting, heartburn or vomiting blood/hematemesis : Negative for hematuria Musc Musc: Negative for muscle aches/ myalgia Neuro Neuro: Negative for dizziness, lightheadedness, near syncope, syncope, orthostatic symptoms, headache(s) or weakness Marcelino Hematologic/Lymphatic: Negative for easy bleeding Endo Endo: Negative for fatigue Cardiology Exam Const Appearance: cooperative, healthy appearing, comfortable, no acute distress, well developed and well groomed Nutritional Appearance: overweight Orientation: alert, awake and oriented x3 Head Head: normal to inspection, normocephalic and atraumatic Ears: hearing grossly normal bilaterally Nose: external nose normal Face and Sinus: face symmetric Eyes Eyelids: eyelids normal Conjunctivae: conjunctivae normal Pupils: PERRL EOM: EOM intact bilaterally Neck Neck: normal visual inspection, full ROM and no JVD Carotids: normal carotid upstroke Chest Chest inspection: normal inspection of the chest, symmetric chest movement and normal respiratory effort; negative cough Auscultation: Bilateral: Clear to Auscultation Cardio Rate: regular rate Rhythm: regular rhythm Heart sounds: S2 normal and crisp prosthetic S1; negative rub or gallop Murmur: Grade 2/6, harsh, mid systolic, LLSB, LVOT and sternal notch GI GI: normal to inspection, soft and bowel sounds present Neuro General: alert, awake, oriented x3 and moves all extremities Skin Skin: no rashes or lesions noted Extremities Pulses: Normal: Right Posterior Tibial Pulse, Left Posterior Tibial Pulse, Right Radial Pulse, Left Radial Pulse Lower Extremity Edema: None: Bilateral Psych Psychological: normal affect Assessment & Plan 1. Essential hypertension I10 Plan Blood pressure is well controlled on current medications, we do not recommend any changes at this time. 2. Paroxysmal atrial fibrillation I48.0 Plan Patient has not had any symptomatic recurrence however she will continue with her atenolol and her Coumadin. She is on her Coumadin for her mechanical valve. 3. History of mitral valve replacement with mechanical valve Z95.[address] [place] Mechanical Prosthesis 09/29/01 @ [facility] Plan With patient's continued shortness of breath would like to proceed with a LAURA to evaluate stability of valve. Patient is agreeable with this. Orders Orders: BNP,B-Type NATRIURETIC PEPTIDE Today Echo Transesophageal (LAURA) Today COVID 19, MADDISON SENDOUT Today 4. Nonrheumatic aortic (valve) stenosis I35.0 Plan With patient's continued shortness of breath would like to obtain a LAURA to get a better evaluation of her valves. Orders Orders: BNP,B-Type NATRIURETIC PEPTIDE Today Echo Transesophageal (LAURA) Today COVID 19, MADDISON SENDOUT Today 5. Dyslipidemia E78.5 Plan Patient is due to have lipids checked in the near future. She will continue with her current dose of gemfibrozil and atorvastatin at this time. 6. NINO (dyspnea on exertion) R06.00 Plan With patient's continued shortness of breath with exertion would like to obtain a BN P, will also proceed with a LAURA. Patient Instructions To further evaluate your shortness of breath, we will proceed with a LAURA to take a better look at your valve. I will call you with the date on time of the procedure. The night before the procedure you can not have anything to eat or drink after midnight. In the morning with a small sip of water you can take: atenolol, gemfibrozil, lisinopril. The night before your procedure decrease your night insulin to 20 units. You will need a van cdl driver the day of the procedure. You also need to have a COVID test done, this needs to be done 4 days prior to your procedure. Orders Orders: BNP,B-Type NATRIURETIC PEPTIDE Today Echo Transesophageal (LAURA) Today COVID 19, MADDISON SENDOUT Today Plan Detail Follow Up 6 Months (PFM/MMM) Coding Level of Care Code Off vis,est,level 4 Diagnoses Essential hypertension I10 Paroxysmal atrial fibrillation I48.0 History of mitral valve replacement with mechanical valve Z95.2 Nonrheumatic aortic (valve) stenosis I35.0 Dyslipidemia E78.5 NINO (dyspnea on exertion) R06.00 Coding Level of Care Code Off vis,est,level 4 Diagnoses Essential hypertension I10 Paroxysmal atrial fibrillation I48.0 History of mitral valve replacement with mechanical valve Z95.2 Nonrheumatic aortic (valve) stenosis I35.0 Dyslipidemia E78.5 NINO (dyspnea on exertion) R06.00 Supplemental Info Supplemental Information Transthoracic echocardiogram: 10/12/2017 Interpretation Summary Normal LV size. Left ventricular systolic function is normal. The estimated ejection fraction is 60 %. Mean aortic valve gradient 16 mmHg. Stable appearing mechanical mitral valve apparatus. Compared to prior study, there is no significant change. Echocardiogram: 02-22-2020 Interpretation Summary Left ventricular systolic function is normal. The estimated ejection fraction is 65 %. The left atrium is moderately enlarged. There is moderate to severe mitral annular calcification. Stable appearing mechanical mitral valve apparatus. Mild (1+) eccentric mitral valve insufficiency. Trivial tricuspid valve insufficiency. Moderate aortic stenosis. Trivial aortic valve insufficiency. Calcified aortic root. Right ventricular systolic pressure estimated to be 27 mmHg. Transmitral diastolic flow velocities suggest diastolic dysfunction (pseudonormal pattern). Transesophageal echocardiogram: 10-14-17 Interpretation Summary There is no evidence of a mass or vegetation. This does not rule out endocarditis. The estimated ejection fraction is 65 %. No thrombus is detected in the left atrial appendage. Normal prosthetic mitral valve. No evidence of vegetations noted. Stable appearing mechanical mitral valve apparatus. Mild (1+) tricuspid valve insufficiency. Right ventricular systolic pressure estimated to be 21 mmHg. Trivial aortic valve insufficiency. Stress Test Report Date: 02-22-2020 Procedure: Pharmacologic stress nuclear imaging study Indications: Shortness of breath/dyspnea on exertion; status post MVR Consent: Per the patient Procedure: The patient underwent pharmacologic (Regadenoson) evaluation with a peak heart rate of 106 beats per minute (71 %predicted maximal heart rate) and a peak blood pressure of 138/70 mmHg. The baseline ECG demonstrated sinus rhythm. The peak pharmacologic ECG demonstrated no obvious ECG changes. There was a rare PVC during pharmacologic infusion and recovery. There was no complaint of chest discomfort during pharmacologic infusion or recovery. The examination was discontinued secondary to completion of protocol. Impression: 1. Pharmacologic (Regadenoson) evaluation 2. Peak pharmacologic ECG with with no obvious ECG changes. 3. There was a rare PVC during pharmacologic infusion and recovery. 4. Nuclear images pending Myocardial perfusion imaging study: Technique: The patient was injected with 11.9 millicuries of technetium 99m Cardiolite and subsequently rest SPECT Cardiolite nuclear imaging was obtained in the horizontal long, vertical long, and short axis views. The patient underwent pharmacologic (Regadenoson) evaluation with a peak heart rate of 106 beats per minute (71 % percent predicted maximal heart rate) and a peak blood pressure of 138/70 mmHg. The patient was injected with 32.0 millicuries of technetium 99m Cardiolite and subsequently stress SPECT Cardiolite nuclear imaging was obtained in the horizontal long, vertical long, and short axis views. A gated Cardiolite study at peak stress was obtained. Interpretation: Rest and stress SPECT Cardiolite nuclear imaging status post realignment, normalization, and attenuation correction demonstrate relative uniform tracer uptake and myocardial perfusion appearing within normal limits. There is end systolic thickening and brightening. The gated Cardiolite study demonstrates myocardial thickening and inward wall motion. The reported LVEF is 69 %. Impression: 1. Rest and stress SPECT Cardiolite nuclear imaging demonstrate relative uniform tracer uptake and myocardial perfusion appearing within normal limits. 2. The gated Cardiolite study reports an LVEF of 69 %. Labs LDL Cholesterol 128 mg/dL (0-130) 02/22/20 HDL Cholesterol 48 mg/dL (40-) 02/22/20 Triglycerides 202 mg/dL (-199) H 02/22/20 VLDL Cholesterol 40 mg/dL (5-40) 02/22/20 Diagnostics Echocardiogram 02/22/20 Stress Test Nuclear Medicine 02/22/20 Stress Test 02/22/20 Chest X-Ray 02/22/20 Pulmonary Pulmonary Function Test 04/04/20 COVID (Procedure Consent) Procedure Criteria Procedure Criteria: Yes Elective The surgeon/proceduralist and patient have discussed in detail the risk of exposure to and/or potential harm posed by the COVID-19 virus with having a surgery/procedure at this time versus the risk of? delaying the surgery/procedure. It is not possible to know either the risk of delaying the surgery or procedure or chance of getting an infection with perfect accuracy, but a joint decision was made between the patient and the surgeon/proceduralist ?to proceed at this time with the scheduled surgery/procedure as indicated on the consent form. I have examined the patient the following changes are noted: The patient underwent further evaluation with a transesophageal echocardiogram on 07/02/2020. The results are as noted below. Interpretation Summary Left ventricular systolic function is normal. The estimated ejection fraction is 60 %. Moderate to severe left atrial enlargement. There is no sponatenous contrast in the left atrium. No thrombus is detected in the left atrial appendage. Stable appearing mechanical mitral valve apparatus. MIld (1+) transvalvular insufficiency of the mitral valve. Trivial tricuspid valve insufficiency. Moderate diffuse aortic valve thickening. Moderate diffuse aortic valve calcification. Aortic valve area by planimetry: 0.7 cm??: Compatible with severe aortic valve stenosis. Trivial aortic valve insufficiency. Bubble contrast study negative for right to left interatrial shunt. Calcified aortic root. Mild atherosclerosis of the descending aorta. The patient's case was discussed and reviewed with her. Based upon the concern of her symptoms and her aortic valve findings suggesting severe aortic valve stenosis the recommendation was made to proceed with further evaluation with diagnostic cardiac catheterization to evaluate the patient's coronary anatomy in preparation for a tertiary care center evaluation for a possible TAVR procedure. The procedure and risks were discussed with the patient. The patient was in agreement to proceeding in this manner. This note was generated using a voice recognition system and there may be incorrect words, spelling or punctuation that were not noted when reviewing the office note prior to saving.
[2020-07-19 09:29] LABS: Prothrombin Time (Protime)PT. 12.3 SECONDS (11.7-14.9)
--- NOTE | 2020-07-19 12:11 | CL.D_ITS ---
Patient Name: MACIEL BUCIO Study Date: 07/19/2020 Performing: Wesley Gerardo MD Ht: 61.02 inches 155 cm : 1950 Wt: 145.51 lbs 66 kg Age: 70 Gender: female BSA: 1.65 PROCEDURE(S) PERFORMED [id number]/LV CLINICAL PROFILE AND INDICATIONS Indications: Valvular Disease Heart Failure: None Stress/Imaging Stress/Image Study Performed: No Angina Classification Anginal Classification w/in 2 Weeks: Anginal Equivalent Dyspnea CAD Presentations: Other: dyspnea on exertion CONCLUSIONS Elevated Left Ventricular End Diastolic Pressure Normal LV size, wall motion,and systolic function LVEF: by LV gram 65 % [place] Multivessel CAD MV: stable appearing mechanical MV RECOMMENDATIONS Risk factor modification Medical therapy DESCRIPTION OF PROCEDURE The patient arrived to the procedure lab. The risks and benefits of the procedure as well as a full d escription of our services here and current unavailability of surgical backup were fully explained to the patient and/or their significant other prior to the catheterization. The Timeout was completed, verifying the correct patient and procedure. The patient's procedural site was prepped and draped in the usual fashion. Local anesthetic was given subcutaneously to right radial region with Lidocaine 2% . Local anesthetic was given subcutaneously to right groin region with Lidocaine 2%. Using a modified Seldinger technique, arterial access was obtained via the right radial artery, a 6Fr sheath was inse rted., arterial access was obtained via the right femoral artery, a 4Fr sheath was inserted Left Cor onary Artery selective angiography was performed in multiple views using a 4 Fr. JL5 catheter. Right Coronary Artery selective angiography was then performed in multiple views using a 4 Fr. 3DRC catheter. Left Ventriculography was performed in AVELAR projection using a 4 Fr. Pigtail catheter. LV to AO pullback pressures were then recorded.The arterial sheath was pulled and manual compression applied until hemostasis is achieved. femoral. The arterial sheath was pulled and a TR Band was appli ed for hemostasis radial 10cc air CORONARY ANGIOGRAPHY DOMINANCE: Right Dominant LEFT HEART ASSESSMENT Left Ventricular Ejection Fraction: by LV Gram 65 % Normal LV wall motion Elevated Left Ventricular End Diastolic Pressure LVEDP: 18 mmHg LEFT ANTERIOR DESCENDING ARTERY: MID LAD: Mild luminal irregularities CIRCUMFLEX ARTERY: PROX CIRC: Mild luminal irregularities OM 1: Proximal - eccentric: 10 - 25 % Stenosis RIGHT CORONARY ARTERY: PROX RCA: Mild luminal irregularities VALVE FINDINGS: MV: stable appearing mechanical MV AORTIC ROOT: Angiographically normal COMPLICATIONS No Complications PROCEDURE MEDICATIONS Versed 1 mg IV Fentanyl 50 mcg IV Oxygen: 2 L/min via nasal cannula Heparin diluted in 23cc Heparinized saline. Patient given 10cc IA of this solution. 07/19/2020 11:04: 40 SUMMARY OF HEMODYNAMIC DATA Time AIR REST ECG 10:17:55 RArt 71/44 (55) 11:10:38 AO 106/68 (86) SA 11:26:33 LV 147/-8, 24 11:37:41 LV 136/-7, 18 11:37:49 LV 146/-2, 24 11:38:44 LV 145/-5, 17 11:38:49 LVp 139/-12, 12 11:39:12 AOp 136/60 (92) 11:39:17 Signed By Wesley Gerardo MD On 07/19/2020 12:10:27 PM Wesley Gerardo MD
[2020-07-21 15:47] LABS: Prothrombin Time Fingerstick 14.2 SEC (11.9-14.4)
== END 2020-07-19 16:07 | disposition home or self-care (01) ==
PROVIDERS: PCP Internal Medicine; Referring Provider Internal Medicine Cardiovascular Disease; Visit Provider Internal Medicine Cardiovascular Disease
DX: I25.10 Atherosclerotic heart disease of native coronary artery without angina pectoris (principal); I48.0 Paroxysmal atrial fibrillation; I35.0 Nonrheumatic aortic (valve) stenosis; I49.1 Atrial premature depolarization; I49.3 Ventricular premature depolarization; I11.9 Hypertensive heart disease without heart failure; E11.9 Type 2 diabetes mellitus without complications; E78.5 Hyperlipidemia, unspecified; E66.3 Overweight; Z68.27 Body mass index [BMI] 27.0-27.9, adult; R06.02 Shortness of breath; Z95.2 Presence of prosthetic heart valve; Z79.4 Long term (current) use of insulin; Z79.01 Long term (current) use of anticoagulants; Z79.899 Other long term (current) drug therapy; Z87.891 Personal history of nicotine dependence
CPT/HCPCS: 36415; 36416; 80048; 85027; 85610; 85730; 93458; 99152; 99153; J7040; Q9967; C1769; C1894

== ENCOUNTER → 2020-07-23 09:54 | Outpatient (CLI) | payer MEDICARE, SELFPAY ==
[2020-07-18 08:05] VITALS: BMI 27.6
== END ==
PROVIDERS: PCP Internal Medicine; Visit Provider Internal Medicine Cardiovascular Disease
DX: S55.191A Other specified injury of radial artery at forearm level, right arm, initial encounter (principal); X58.XXXA Exposure to other specified factors, initial encounter
CPT/HCPCS: 93931

== ENCOUNTER 2020-07-31 07:56 | Outpatient (RCR) | payer MEDICARE, SELFPAY ==
[2020-07-17 08:50] LABS: Absolute Lymphocyte Count 1.31 X10^3/uL (0.83-4.51); Absolute Neutrophil Count 2.5 X10^3/uL (2.0-7.7); Basophil# 0.04 X10^3/uL; Basophil% 0.9 % (0-1); Eosinophil# 0.19 X10^3/uL; Eosinophils% 4.3 % (0-5); Hematocrit 42.2 % (37-47); Hemoglobin 13.3 g/dL (12.0-15.0); Lymphocyte # 1.31 X10^3/ul (4.0); Lymphocyte % 29.4 % (19-41); Mean Corp Hgb Conc 31.5 g/dL (32-36); Mean Corpuscular Hgb 31.1 pg (27.0-32.0); Mean Corpuscular Volume 98.6 fL (81-99); Mean Platelet Vol. 10.2 fl (6.2-12.0); Monocyte# 0.44 X10^3/uL; Monocyte% 9.9 % (0-10); NRBC Flagged by Analyzer 0 % (0-5); Neutrophil # 2.45 X10^3/uL (2.7-7.7); Neutrophil % 54.8 % (47-70); Platelet Count 340 K/mm3 (150-450); RBC Distribution Width CV 13.6 % (11.6-14.6); RBC Distribution Width SD 49.2 fl (35.1-43.9); Red Blood Count 4.28 M/mm3 (4.2-5.4); White Blood Count 4.5 K/mm3 (4.4-11.0)
[2020-07-17 09:29] LABS: ALB/GLOB Ratio 1.1 RATIO (0.9-2.4); AST(SGOT) 20 U/L (15-37); Alanine Aminotransfer ALT/SGPT 21 U/L (13-56); Albumin, Serum 3.8 g/dL (3.2-5.0); Alkaline Phosphatase 76 U/L (45-117); Anion Gap 7 (5-15); BUN 26 mg/dL (7-18); BUN/Creat Ratio 42.5 RATIO (10-20); Calcium,Total 9.3 mg/dL (8.5-10.1); Chloride 107 mmol/L (98-107); Cholesterol 214 mg/dL (200); Creatinine, Serum 0.61 mg/dL (0.55-1.02); EST Glomerular Filtration Rate 102 mL/min (>60); Est Glom Filt Rate - Afr Amer 123 mL/min (>60); Globulin 3.4 g/dL (2.2-4.2); Glucose 169 mg/dL (74-106); High Density Lipoprotein 47 mg/dL; Potassium 4.2 mmol/L (3.5-5.1); Protein, Total 7.2 g/dL (6.4-8.2); Sodium Level 139 mmol/L (136-145); Triglycerides 295 mg/dL; Very Low Density Lipoprotein 59 mg/dL (5-40)
[2020-07-17 09:59] LABS: International Normalized Ratio 1.1; Prothrombin Time (Protime)PT. 13.2 SECONDS (11.7-14.9)
[2020-07-22 08:50] LABS: International Normalized Ratio 1.3; Prothrombin Time (Protime)PT. 15.5 SECONDS (11.7-14.9)
[2020-07-22 08:53] LABS: Anion Gap 5 (5-15); BUN 19 mg/dL (7-18); BUN/Creat Ratio 34.4 RATIO (10-20); Chloride 106 mmol/L (98-107); Creatinine, Serum 0.55 mg/dL (0.55-1.02); EST Glomerular Filtration Rate 115 mL/min (>60); Est Glom Filt Rate - Afr Amer 139 mL/min (>60); Glucose 209 mg/dL (74-106); Sodium Level 137 mmol/L (136-145)
[2020-07-24 08:40] LABS: Prothrombin Time Fingerstick 25.5 SEC (11.9-14.4)
== END 2020-07-31 18:00 | disposition home or self-care (01) ==
LOC: LAB 07:56
PROVIDERS: PCP Internal Medicine; Referring Provider Internal Medicine Cardiovascular Disease; Visit Provider Nurse Practitioner
DX: I48.0 Paroxysmal atrial fibrillation (principal); Z95.2 Presence of prosthetic heart valve; Z79.01 Long term (current) use of anticoagulants; E11.69 Type 2 diabetes mellitus with other specified complication; E78.5 Hyperlipidemia, unspecified
CPT/HCPCS: 36415; 36416; 80048; 80053; 80061; 85025; 85610

== ENCOUNTER → 2020-08-30 08:25 | Outpatient (CLI) | payer MEDICARE, SELFPAY ==
[2020-07-18 08:05] VITALS: BMI 27.6
[2020-08-30 10:26] LABS: Anion Gap 6 (5-15); BUN 21 mg/dL (7-18); BUN/Creat Ratio 36.3 RATIO (10-20); Calcium,Total 9.9 mg/dL (8.5-10.1); Chloride 108 mmol/L (98-107); Creatinine, Serum 0.58 mg/dL (0.55-1.02); EST Glomerular Filtration Rate 109 mL/min (>60); Est Glom Filt Rate - Afr Amer 132 mL/min (>60); Glucose 119 mg/dL (74-106); Potassium 4.2 mmol/L (3.5-5.1); Sodium Level 140 mmol/L (136-145)
== END ==
PROVIDERS: PCP Internal Medicine
DX: I35.0 Nonrheumatic aortic (valve) stenosis (principal)
CPT/HCPCS: 36415; 80048

== ENCOUNTER → 2020-10-08 09:47 | Outpatient (CLI) | payer MEDICARE, SELFPAY ==
[2020-09-30 11:20] VITALS: BMI 28.2
--- NOTE | 2020-10-08 09:53 | CR.ITP_ITS ---
Diagnosis - General Information Admitting Diagnosis: S/P TAVR Personal Learning Style:: Audio/Visual, Written Barriers to Learning: Vision Impairment Stage of change r/t lifestyle modifications:: Action Gave educational material for:: Treating Heart Disease, Emotions & Heart Disease, Stress Management & Relaxation, Sleep Disorders & Heart Disease, How The Heart Works, What it means to have Heart Disease, How Coronary Artery Disease is Diagnosed, Heart Procedures, What Heart Medications Do, Risk Factors & Modifications, Living an Active Life, Nutrition - Education/Goals Individual Counseling: Initial Assessment: Abnormal Cholesterol Levels, High Blood Pressure, Diabetes Cardiac Rehabilitation Goals: 1. Maintain the individual as the primary focus of care. 2. To improve the patient's quality of life. 3. Identification of cardiac risk factors and provide cardiac risk factor management. 4. Enhance the psychosocial status of the patient. 5. Reconditioning enough to allow the patient to resume customary activities. 6. Control symptoms of cardiac disease Personal Goals: Initial Assessment: Improve energy level, Get back to work, or to resume activities faster, Improve muscle strength and endurance, Improve diet and eating habits (eat healthier), Control risk factors (learn risk factor modification) Scale for measuring improvement of personal goals: Enter appropriate number in Comments. 2 = Unchanged. 3 = Slightly Better. 4 = Moderate Improvement. 5 = Met my Goal - Diagnosis & Disease Process Outcomes/Goals: Pt IDs own risk factors & lifestyle modifications by Session 10, Verbalizes symptoms of angina & response by session 3., Pt independently manages Plan/Interventions: Assist Pt to ID & engage in lifestyle modification to reduce CVD risk, Instruct on individual risk factors, Review symptoms of angina & emergency actions, Review secondary diagnosis & identify educational needs. - Safety Referral to Physical Therapy: No Referral to [facility] Case Management: No Fall Risk Assessed:: Yes Assistive Devices:: None Exercise - Initial Assessment - Visit Date of Eval: 10/08/20 Session #:: 0 - pre-cardiac rehab eval Mets: Pre-: >5 METS for 30 minutes by discharge - Physician Prescribed Exercise Modalities: Treadmill, Airdyne, NuStep, SciFit Frequency: 3x/week for 12 weeks [36 sessions] Intensity: 60-80% of age predicted maximum heart rate reserve Target Heart Rate:: 96-125 Resting Blood Pressure: 110/68 EKG Type: sinus rhythm versus ectopic atrial rhythm - Outcomes & Goals Goals:: Verbalizes understanding of THR, RPE & goal METS by session 6, Documents in home exercise log/reports 30 min aerobic 5 day/wk by DC, Demonstrates accurate pulse taking by DC - Intervention & Plan Exercise Program Goals: Instruct on personal THR & RPE, Instruct on MET level & personal MET goal, Show patient to take own pulse /validate performance until accurate, Instruct on home exercise - Physical Activity Home Exercise Physical Activity - Home Exercise: Safe Exercise, Warm-up, Self-monitoring, Cool-Down, Home Exercise > 30 min Daily, Sitting Time <3 hours/daily - Outcomes & Goals Outcomes/Goals: Demonstrates correct Warm-up/exercise Cool-Down (S3) if = 2.5 METs, Verbalizes symptoms of exercise intolerance by Session 3 (S3), Demonstrate safe equipment use (S3) & follows exercise prescrition (6) - Intervention & Plan Plan/Intervention: Instruct warm-up & cool-down if exercising at > 2 METs, Instruct on symptoms of exercise intolerance & actions to take, Instruct & monitor on saf, Assess intial functional capacity & safety risk Nutrition - Initial Assessment - Program Goals Nutrition Program Goals: LDL <100 optimal. 100 - 129 Near optimal. 130 - 159 Borderline High. 160 - 189 High. Total Cholesterol <200 desirable. 200 - 239 Borderline High. >/= 240 High. HDL < 40 Low >/=60 High. Triglycerides <150 desirable. <199 optimal. VlDL 5 - 40. HgbA1C <7%. BMI <25 Patient has diagnosis of Hyperlipidemia (ICD E78)?: Yes - Visit Date of Assessment:: 10/08/20 Session #:: 0 - pre-cardiac rehab eval - Cholesterol/Lipids Triglycerides (mg/dL): 295 - 07/17/2020 Total Cholesterol (mg/dL): 150 LDL Cholesterol (mg/dL): 108 HDL Cholesterol (mg/dL): 47 Determine presence & major risk factors that modify LDL goal: Hypertension or hypertensive medication, Family history of premature CHD in Male < 55 years: female <65 yearsFa, Age men > 45 years; women >/= 55 years Outcomes/Goals: Pt IDs own risk factors & lifestyle modifications by Session 10, Verbalizes symptoms of angina & response by session 3., Pt independently manages Intervention/Plan: Instruct on personal lipid levels & lipid goals/NCEP guidelines, Instruct on cholesterol Referral to dietitian:: Yes - Diabetes (Other Core Measures) Diabetes Type: Diagnosis Type II ICD-10 E11 Insulin dependent injection/pump?: Yes Non-Insulin Dependent?: Yes - metformin Do you monitor your blood sugar at home?: Yes Referral to Diabetic Clinic:: Yes Outcomes/Goals:: Able to state symptoms of, Able to state, Able to state Intervention/Plan:: Instruct on, Refer to, Instruct on - Weight Mgt (Other Care) Not Applicable: Yes Height: 5 ft 1 in Weight:: 149 lb 8 oz BMI: 28.2 Diagnosis Overweight/Obesity BMI> 30% ICD-10 E66: No Diagnosis High BMI/Morbid Obesity BMI> 35% ICD-10 Z68: No Outcomes/Goals: Pt sets, maintains & shows weight loss goal & trend during rehab Intervention/Plan: Instruct on ideal BMI & set weight loss goal w/patient, Assist pt to ID & incorporate diet changes for weight loss by S9 - Healthy Eating Habits Will attend diet classes:: Yes Outcomes/Goals:: Consume diet rich in vegs,fruits,whole grain/high fiber,f ana paula,lean meat, Limit sat/trans fats,cholesterol & added salts & sugars Intervention/Plan:: Assess current eating habits - Education Gave educational materials for:: Signs & symptoms of hypoglycemia, Signs & symptoms of hyperglycemia, Relate diabetes to coronary artery disease, Healthy eating Medical - Initial Assessment - Visit Date of Eval: 10/08/20 Session #:: 0 - pre-cardiac rehab eval - Medication Compliance Preventative Medication(s):: Aspirin, Statin/lipid, Beta esau, Warfarin/Coumadin H/O mental health issues: depression, anxiety, or addiction?: No Doesn?t believe in the benefits of treatment?: No Believes medications are unnecessary or harmful?: No Has a concern about medication side effects?: No Expresses concern over the cost of medications?: No Outcomes/Goals: Verbalizes medications,desired effect & common side effects @ DC, Pt self-reports following medication regimen, Keeps card in wallet w/medications listed by DC Interventions/plans: Instruct on medication effects & side effects, Review medication list w/patient every two weeks, Instruct importance of taking meds as ordered & assist problem solving - Tobacco Use Tobacco Use: Non-smoker - Hypertension Hypertension Diagnosis:: Hypertension ICD-10 I10 Resting Blood Pressure:: 110/68 [place] [employer] Hypertension Guidelines: [place] [employer] Hypertension Guidelines. Normal BP Less than 120/80. Elevated BP 120/80. Hypertension Stage 1: BP 130-139/80-89. Hypertesnion Stage 2: BP 140 or higher/ 90 or higher. Hypertension Crisis: BP higher than 180/120 Outcomes/Goals: Able to verbalize/achieve optimal blood pressure <130/80, Incorporates diet changes & exercise for blood pressure control by DC Interventions/plan: Instruct on optimal blood pressure, hypertension & medications, Instruct on effects of sodium, alcohol, stress, exercise &hyper tension - Tobacco Cessation Referral Smoking Cessation Referral:: No Individual Education/Counseling:: No Education Schedule Given:: Yes Psychosocial - Initial Assess - VIsit Date of Eval: 10/08/20 Session #:: 0 - pre-cardiac rehab Not Applicable: Yes History of previous Mental disease:: No - Target Goals Target Goals: Assess presence or absence of depression. Using a valid screening tool, maximizes coping skills. Positive support system - Psychosocial Test Tool Used:: Kristin Michele QOL Cardiac, PHQ-9 Questionnaire phq-9 Severity: Severity. 1-4 Minimal Depression. 5-9 Mild Depression. 10-14 Moderate Depression. 15-19 Moderately Sever Depression. 20-27 Severe Depression. Rule: - Referral to Behavioral Health PS - Interventions: Yes Attend Stress Management Classes, No Referral to Behavioral Health if PHQ-9 score >9:, No Referral to [facility], No Referral to Physician if PHQ-9 if score is 5-9: - Outcomes/Goals: See list Psychosocial Outcomes/Goals:: ID's personal stressors & 2 strategies to manage stress by discharge - Intervention/Plan: See List Interventions/Plan:: Assess stressors,coping strategies & signs of derpression on admission, Instruct/assist pt to develop coping & personal stress Mgt strategies, Instruct patient to recognize signs & symptoms of depression, Instruct patient to recog Patient Health Questionnaire Initial Assessment 1. Little interest or pleasure in doing things: More than half the days 2. Feeling down, depressed, or hopeless: Not at all 3. Trouble falling or staying asleep, or sleeping too much: More than half the days 4. Feeling tired or having little energy: Nearly every day 5. Poor appetite or overeating: Not at all 6. Feeling bad about yourself -- or that you are a failure or have let yourself or your family down: Not at all 7. Trouble concentrating on things, such as reading the newspaper or watching television: Not at all 8. Moving or speaking so slowly that other people could have noticed. Or the opposite - being so fidgety or restless that you have been moving around a lot more than usual: Not at all 9. Thoughts that you would be better off , or of hurting yourself in some way: Several days How difficult have these problems made it for you to do your work, take care of things at home, or get along with other people?: Somewhat difficult Total Score: 8 [id number] SV Test - Statements CAD is a disease of the arteries in the heart: False Examples of risk factors for heart disease: False Angina is chest pain or discomfort: True The benefits of resistance training include: True Eating more meat and dairy products: False Anti-platelet medications such as aspirin are important: True The only effective way to manage stress: False An exercise warm-up slowly increases heart rate: True Prepared, processed foods usually have high sodium: True Depression is common after a heart attack: True The statin medications lower cholesterol: True To control blood pressure, lower the amount of sodium: True If someone gets chest discomfort during walking: False Transfats are partially hydrogenated vegetable oils: False Sleep apnea that is not treated increases the risk: I Don't Know To control cholesterol, one should become a vegetarian: False Someone knows if he/she is exercising at the right level: True Diabetes cannot be prevented with exercise & health eating: False Stress is a large risk for heart attack: True A diet that can help lower blood pressure is rich in: True - Total Score Total Correct Responses: 17 Self-Efficacy Initial Assessment We would like to know how confident you are in doing certain activities. Please select your confidence level for:: Select your confidence level for the following using the scale 1-10 where 1 is not at all confident and 10 is totally confident. Your score is the average of all 6 responses. Fatigue: How confident are you that you can keep the fatigue caused by your disease from interfering with the things you want to do? Select Number: 8 Physical Discomfort or Pain: How confident are you that you can keep the physical discomfort or pain of your disease from interfering with the things you want to do? Select Number: 8 Emotional Distress: How confident are you that you can keep the emotional distress caused by your disease from interfering with the things you want to do? Select Number: 8 Other Symptoms or Health Problems: How confident are you that you can keep other symptoms or health problems from interfering with the things you want to do? Select Number: 8 Different Tasks and Activities: How confident are you that you can do the different tasks and activities needed to manage your health condition so as to reduce your need to see a doctor? Select Number: 9 Medication: How confident are you that you can do things other than just taking medication to reduce how much your illness affects your everyday life? Select Number: 5 Total Score:: 7
--- NOTE | 2020-10-08 09:53 | PCM.CR.HP2 ---
CR - History & Physical - General Arrival date:: 10/08/20 Arrival time:: 10:02 Date of Referral:: 07/30/21 Date of CR Evaluation:: 10/08/20 Referring Physician: Dr. Wesley Gerardo Primary Diagnosis: S/P TAVR - History of Present Cardiac Event Onset Date: Enter Onset Date of cardiac illnesses in Comment field below Heart valve replacement or repair:: Yes - TAVR @ [facility] PTCA or coronary stenting:: No Heart or Heart-Lung Transplant:: No Heart Failure EF <35%:: No Type of Symptoms:: shortness of breath Interventions with present event:: echocardiogram heart cath and LAURA prior to surgery Were there any complications?: none - Medications Home Medications: Ambulatory Orders Medication Instructions Recorded Atenolol [Tenormin (beta esau)] 50 mg PO DAILY 07/10/13 Gemfibrozil [Lopid] 600 mg PO BIDAC 07/10/13 Lisinopril [Zestril] 10 mg PO DAILY 07/10/13 Acetaminophen [Tylenol Tablet] 650 mg PO Q6H PRN PRN tab 10/20/17 Warfarin [Coumadin] 5 mg PO TuThSa@1700 tab 10/20/17 Warfarin [Coumadin] 6 mg PO SuMoWeFr@1700 tab 10/20/17 atorvastatin 40 mg tablet 40 mg PO QDAY 12/21/17 multivitamin 1 tab PO QDAY 12/21/17 insulin glargine 100 unit/mL (3 40 unit SC QHS ml 02/08/20 mL) subcutaneous pen metformin 500 mg tablet 2,000 mg PO DAILY tab 02/08/20 aspirin 81 mg tablet,delayed 81 mg PO DAILY #1 tab 09/30/20 release meclizine 12.5 mg tablet 12.5 mg PO TID PRN 09/30/20 - Allergies Allergies/Adverse Reactions: Allergies Calcium Channel Blocking Agent Dilt [Calcium Channel Blocking Agents-Win] Allergy (Verified 09/30/20 11:21) Rash - Sleep Disorder Evaluation Hx of Sleep Apnea: No Do you snore loudly (louder than talking or can be heard through closed doors)?: No Do you often feel tired/ fatigued/ sleepy during daytime?: Yes Has anyone observed you stop breathing during sleep?: No History of Hypertension (for STOP score): Yes STOP Results: Positive Advanced Directives - Advanced Directives Power of E Commerce Specialist: Yes Living Will: Yes Advance Directives Information Provided: No Advance Directives on File: No DNR Order?:: No - MOLST See MOLST form: No Past Medical History - Covid-19 Screening Fever: No Unexplained muscle aches: No Current respiratory symptoms: No Upper respiratory infections symptoms: No Gastro-intestinal symptoms: No Gyp-Hgjx-Yxhkqo symptoms: No Has tested positive for COVID-19 in last 30 days: No Had contact w/person w/symptoms or Covid-19 (+) last 14 days: No Has High Risk Exposures ID'd by Health dept/Inf Control team: No 65 years or older:: Yes Has a chronic lung disease or moderate to severe asthma:: No Has a serious heart condition:: Yes Immunocompromised:: No Severely obese (Body Mass Index of 40 or higher):: No Diabetic:: Yes Has chronic kidney disease undergoing dialysis:: No Has liver disease:: No - Past Medical Illness Medical History: Past Medical History (Last Reviewed 09/30/20 @ 11:22 by Raven Angel) Atherosclerotic heart disease of [place] coronary artery without angina pectoris (Chronic) I25.10 LEFT ANTERIOR DESCENDING ARTERY:MID LAD: Mild luminal irregularities; CIRCUMFLEX ARTERY: PROX CIRC: Mild luminal irregularities, OM 1: Proximal - eccentric: 10 - 25 % Stenosis, RIGHT CORONARY ARTERY: PROX RCA: Mild luminal irregularities; VALVE FINDINGS:MV: stable appearing mechanical MV; AORTIC ROOT: Angiographically normal per cardiac cath 07/19/20 Nonrheumatic aortic (valve) stenosis (Acute) I35.0 Type 2 diabetes mellitus (Chronic) E11.9 Premature ventricular contraction (Acute) I49.3 Premature atrial contraction (Acute) I49.1 Paroxysmal ventricular tachycardia (Acute) I47.2 Essential hypertension (Chronic) I10 Paroxysmal atrial fibrillation (Acute) I48.0 Mitral valve disorder (Chronic) I05.9 Palpitations (Chronic) R00.2 Abnormal electrocardiogram (Chronic) R94.31 Encounter for long-term current use of high risk medication (Chronic) Z79.899 Dyslipidemia (Chronic) E78.5 SIRS (systemic inflammatory response syndrome) (Acute) R65.10 Bacteremia (Acute) R78.81 Chest pain R07.9 Chest tightness R07.89 Dyspnea R06.00 Murmur, functional R01.0 Atrial fibrillation (Inactive) I48.91 Hypertension (Inactive) I10 Ventricular tachycardia (Inactive) I47.2 - Past Surgical History Surgical History: Past Surgical History (Last Reviewed 09/30/20 @ 11:22 by Raven Angel) S/P TAVR (transcatheter aortic valve replacement) (Chronic) Onset Date: 09/18/[address] Pop Rivers at [facility] on 09/18/2020 History of mitral valve replacement with mechanical valve (Chronic) Onset Date: ~09/29/[address] [facility] Mechanical Prosthesis 09/29/01 @ [facility] H/O shoulder replacement Z96.619 History of left heart catheterization (LHC) Onset Date: ~07/19/20 Z98.890 LEFT ANTERIOR DESCENDING ARTERY: MID LAD: Mild luminal irregularities; CIRCUMFLEX ARTERY: PROX CIRC: Mild luminal irregularities, OM 1: Proximal - eccentric: 10 - 25 % Stenosis; RIGHT CORONARY ARTERY: PROX RCA: Mild luminal irregularities, VALVE FINDINGS: MV: stable appearing mechanical MV; AORTIC ROOT: Angiographically normal per cardiac cath 07/19/20 Bioprosthetic mitral valve replacement, current hospitalization (Inactive) Z95.3 [facility] September 2001 Surgical History: no surgical history - Family History Summary Family History: Family History (Last Reviewed 09/30/20 @ 11:22 by Raven Angel) Mother CAD (coronary artery disease) Brother hyperlipidemia Brother Hypertension Father CAD (coronary artery disease) Social History - Smoking History Smoking Status: Former smoker - quit some 40+ years ago. - Alcohol Use Alcohol Usage: No - Substance Abuse Hx Substance Use: No - Occupation Occupation (List type of work in comments):: Retired - Hobbies, Recreation, Social Activities Hobbies: Other - reading, work in [employer], travel to see children. Recreational Activities: I am able to engage in most, but not all activities - was doing really well after surgery but with weather have been stuck at home. Social Environment - Status Marital Status: - Current Living Arrangements Living Environment:: Alone - Children Do any of your children live nearby?: Yes - Safety Do you feel safe in your surroundings?: Yes - Assistance Do you need any assistance at home?: none Review of Systems - Review of Systems Hints: Right click = Denies (Slash). Left click = Reports ([place]) Review of Present Symptoms: Reports: Shortness of Breath with Exertion, Dizziness/Lightheadedness - has been a little bit of dizzyness but not sure if related to history of vertigo or medications., Fatigue, Heart Arrhythmia/Irregularities - PVCs, Paroxysmal ventricular tachycardia, and atrial fibrillation., Appetite - Normal - seem to be eating more in the evenings, little in the morning then find myself grazing all day., Appetite - Special Diet - no green high in vitamin K, low carbs, diabetic diet., Sleep - Normal. Denies: Shortness of Breath at Rest, Operative Discomfort, Sexual Changes - Pain Is Patient Pain Free?: Yes Pain Location: none Pain Level: 0/10 Risk Factor Assessment - Chief Complaint Chief Complaint: pt is a 70 yr old female of Dr. Gerardo who presents to cardiac rehab today following a recent T[facility] at [facility] - Vital Signs Temperature: 97.7 F Respiratory Rate: 14 Pulse Ox: 98 Blood Pressure: 110/64 - Pulse Pulse Rate: 61 Pulse Rhythm: Regular - Hypertension How long have you been treated?: probably 25-30 years On medication(s)?: yes Blood Pressure Sitting - Right Arm: 110/64 - Stress Stress: Recent - Blood Cholesterol/Lipids Total Cholesterol (mg/dL) Goal = less than 200 mg/dL: 150 - 07/17/2020 HDL Cholesterol (mg/dL) Goal = less than 40 mg/dL: 47 LDL Cholesterol (mg/dL) Goal = less than 70 mg/dL: 108 Triglycerides (mg/dL) Goal = less than 150 mg/dL: 295 - Diabetes Diabetic History: Type II, Medication Dependent, Insulin Dependent Nutrition Referral for Diabetes: Yes - Obesity Height: 5 ft 1 in Weight:: 149 lb 8 oz Weight in Pounds: 149.5 lbs Weight Source: Stated by Patient Body Mass Index (BMI): 28.2 - Physical Inactivity Physical Inactivity: None - Risk Stratification Risk Guidelines: Lowest Risk: Risk Factor for Smoking, Risk Factor for Hypertension, Risk Factor for Depression, Moderate Risk: Risk Factor for Dyslipidemia, Risk Factor for Diabetes - Glucose 119 hBA1c 6.5, Risk Factor for Obesity - Overweight BMI 28, Risk Factor for Sedentary Lifestyle - not able to get out to exercise, Highest Risk: Risk Factor for Sedentary Lifestyle - For Smoking Smoking Risk Guidelines: Smoking Low Risk: None or quit greater than 6 months ago. Smoking Moderate Risk: Smoker or quit 6 months or less ago. Smoking High Risk: Smoker - For Dyslipidemia Dyslipidemia Risk Guidelines: Low Risk: Moderate Risk: High Risk: 15-25% fat 25.1-29% fat >/= 30% fat. <7% sat fat 7-9% sat fat >9% sat fat. <150 mg chol 150-299 mg chol >/= 300 mg chol. LDL <100 LDL 100-129 LDL >/= 130. Chol/HDL ratio <5.0 Chol/HDL ratio 5.0-6.0 Chol/HDL ratio >6.0. Triglycerides <100 Triglycerides 100-149 Triglycerides >/= 150 - For Diabetes Mellitus Diabetes Risk Guidelines: Diabetes Low Risk: HgA1c <6.5% and/or FBG <120. Diabetes Moderate Risk: HgA1c 6.6-7.9% and/or FBG 120-180. Diabetes High Risk: HgA1c >/= 8% and/or FBG >180 - For Obesity/Overweight Obesity/Overweight Risk Guidelines: Obesity Low Risk: BMI <25.0. Obesity Moderate Risk: BMI 25-29.9. Obesity High Risk: BMI >/= 30.0 - For Hypertension Hypertension Risk Guidelines: Hypertension Low Risk: Systolic <120 and Diastolic <80. Hypertension Moderate Risk: Systolic 120-139 and Diastolic 80-89. Hypertension High Risk: Systolic >/= 140 and Diastolic >/= 90 - For Sedentary Lifestyle Sedentary Lifestyle Risk Guidelines: Sedentary Lifestyle Low Risk: >/= 1,500 kcal/week. Sedentary Lifestyle Moderate Risk: 700-1,499 kcal/week. Sedentary Lifestyle High Risk: < 700 kcal/week - For Depression Depression Risk Guidelines: Depression Low Risk: Not clinically depressed. Depression Moderate Risk: Mildly depressed. Depression High Risk: Clinically depressed - Family History Family History: Family History (Last Reviewed 09/30/20 @ 11:22 by Raven Angel) Mother CAD (coronary artery disease) Brother hyperlipidemia Brother Hypertension Father CAD (coronary artery disease) Motivation - Motivation to Participate On a scale of 1 to 10, how prepared are you to commit to attending program?: 10 What do you see as barriers to successfully being able to complete the program?: none What do you see as the benefits of succesfully completing the program? In other words, what do you hope to get out of participating in the program?: getting stronger, lose some weihgt, get more active and more energy Are there issues you are dealing with that will interfere with completing the program?: none Do you have a spouse or signficant other, family or friends who will help support you to complete the program?: yes
[2020-10-08 10:00] VITALS: BP 110/68; BMI 28.2
[2020-10-08 10:18] VITALS: BP 110/64; PULSE 61; RESP 14; TEMP 36.5; O2SAT 98; BMI 28.2
== END ==
PROVIDERS: PCP Internal Medicine; Referring Provider Internal Medicine Cardiovascular Disease; Visit Provider Internal Medicine Cardiovascular Disease
DX: Z95.2 Presence of prosthetic heart valve (principal); I10 Essential (primary) hypertension; E11.9 Type 2 diabetes mellitus without complications; E78.5 Hyperlipidemia, unspecified

== ENCOUNTER 2020-10-11 11:30 | Outpatient (RCR) | payer MEDICARE, SELFPAY ==
[2020-10-08 10:00] VITALS: BMI 28.2
[2020-10-08 10:18] VITALS: BMI 28.2
== END 2020-10-13 23:59 ==
LOC: CR 11:30
PROVIDERS: PCP Internal Medicine; Referring Provider Internal Medicine Cardiovascular Disease; Visit Provider Internal Medicine Cardiovascular Disease
DX: I49.1 Atrial premature depolarization (principal); I49.3 Ventricular premature depolarization; I47.2 Ventricular tachycardia; I25.10 Atherosclerotic heart disease of native coronary artery without angina pectoris; I10 Essential (primary) hypertension; Z95.2 Presence of prosthetic heart valve
CPT/HCPCS: 93798

== ENCOUNTER → 2020-10-18 09:50 | Outpatient (CLI) | payer MEDICARE, SELFPAY ==
[2020-10-08 10:00] VITALS: BMI 28.2
[2020-10-08 10:18] VITALS: BMI 28.2
[2020-10-18 10:17] LABS: Hematocrit 39.3 % (37-47); Hemoglobin 13.1 g/dL (12.0-15.0); Mean Corp Hgb Conc 33.3 g/dL (32-36); Mean Corpuscular Hgb 32.8 pg (27.0-32.0); Mean Corpuscular Volume 98.3 fL (81-99); Mean Platelet Vol. 10.5 fl (6.2-12.0); Platelet Count 245 K/mm3 (150-450); RBC Distribution Width CV 14.3 % (11.6-14.6); RBC Distribution Width SD 49.9 fl (35.1-43.9); White Blood Count 3.9 K/mm3 (4.4-11.0)
[2020-10-18 10:45] LABS: Anion Gap 8 (5-15); BUN 18 mg/dL (7-18); BUN/Creat Ratio 23.5 RATIO (10-20); Calcium,Total 9.8 mg/dL (8.5-10.1); Chloride 106 mmol/L (98-107); Creatinine, Serum 0.77 mg/dL (0.55-1.02); EST Glomerular Filtration Rate 79 mL/min (>60); Est Glom Filt Rate - Afr Amer 95 mL/min (>60); Glucose 279 mg/dL (74-106); Potassium 4.4 mmol/L (3.5-5.1); Sodium Level 139 mmol/L (136-145)
== END ==
PROVIDERS: PCP Internal Medicine
DX: I35.0 Nonrheumatic aortic (valve) stenosis (principal)
CPT/HCPCS: 36415; 80048; 85027

== ENCOUNTER 2020-11-07 10:31 | Outpatient (RCR) | payer MEDICARE, SELFPAY ==
[2020-10-08 10:00] VITALS: BMI 28.2
[2020-10-08 10:18] VITALS: BMI 28.2
[2020-11-04 11:11] VITALS: BMI 27.8
== END 2020-11-13 23:59 ==
LOC: DC 10:31
PROVIDERS: PCP Internal Medicine; Visit Provider Internal Medicine Cardiovascular Disease
DX: E11.9 Type 2 diabetes mellitus without complications (principal)
CPT/HCPCS: G0108

== ENCOUNTER 2020-11-13 11:30 | Outpatient (RCR) | payer MEDICARE, SELFPAY ==
[2020-10-08 10:00] VITALS: BMI 28.2
[2020-10-08 10:18] VITALS: BMI 28.2
--- NOTE | 2020-11-04 11:05 | PCM.CR.ITP ---
Exercise - 30-day Assessment - Visit Date of Eval: 11/04/20 Session #:: 10 - Physician Prescribed Exercise Modalities: Treadmill, Airdyne, NuStep Frequency: 3x/week for 12 weeks [36 sessions] Intensity: 60-80% of age predicted maximum heart rate reserve Current METSs:: 3.0 unchanged Target Heart Rate:: 96-125 Current RPE:: 13-14 Maximum Excercise HR:: 99 Resting Blood Pressure: 114/60 Maximum Exercise Blood Pressure: 144/68 EKG Type: NSR with BBB rare PVCs and ventricular bigeminy - Outcomes & Goals Goals:: Verbalizes understanding of THR, RPE & goal METS by session 6, Documents in home exercise log/reports 30 min aerobic 5 day/wk by DC, Demonstrates accurate pulse taking by DC - Intervention & Plan Exercise Program Goals: Instruct on personal THR & RPE, Instruct on MET level & personal MET goal, Show patient to take own pulse /validate performance until accurate - 30-day Reassessments 30 day Reassessments:: Progressing - Physical Activity Home Exercise Physical Activity - Home Exercise: Safe Exercise, Warm-up, Self-monitoring, Cool-Down, Home Exercise > 30 min Daily, Sitting Time <3 hours/daily - Outcomes & Goals Outcomes/Goals: Demonstrates correct Warm-up/exercise Cool-Down (S3) if = 2.5 METs, Verbalizes symptoms of exercise intolerance by Session 3 (S3), Demonstrate safe equipment use (S3) & follows exercise prescrition (6) - Intervention & Plan Plan/Intervention: Instruct warm-up & cool-down if exercising at > 2 METs, Instruct on symptoms of exercise intolerance & actions to take, Instruct & monitor on saf, Assess intial functional capacity & safety risk - 30-day Reassessments 30 day Reassessments:: Progressing Nutrition - 30-Day Assessment - Program Goals Nutrition Program Goals: LDL <100 optimal. 100 - 129 Near optimal. 130 - 159 Borderline High. 160 - 189 High. Total Cholesterol <200 desirable. 200 - 239 Borderline High. >/= 240 High. HDL < 40 Low >/=60 High. Triglycerides <150 desirable. <199 optimal. VlDL 5 - 40. HgbA1C <7%. BMI <25 Patient has diagnosis of Hyperlipidemia (ICD E78)?: Yes - Visit Date of Assessment:: 11/04/20 Session #:: 10 - Cholesterol/Lipids Triglycerides (mg/dL): 295 - 07/17/2020 Total Cholesterol (mg/dL): 214 LDL Cholesterol (mg/dL): 108 HDL Cholesterol (mg/dL): 47 Determine presence & major risk factors that modify LDL goal: Hypertension or hypertensive medication, Family history of premature CHD in Male < 55 years: female <65 yearsFa, Age men > 45 years; women >/= 55 years Outcomes/Goals: Pt IDs own risk factors & lifestyle modifications by Session 10, Verbalizes symptoms of angina & response by session 3., Pt independently manages Intervention/Plan: Instruct on personal lipid levels & lipid goals/NCEP guidelines, Instruct on cholesterol Referral to dietitian:: Yes - Medical Nutrition Therapy 30-day Reassessments:: Progressing - Diabetes (Other Core Measures) Diabetes Type: Not Applicable - Weight Mgt (Other Care) Not Applicable: Yes Height: 5 ft 1 in Weight:: 147 lb 8 oz BMI: 27.8 Diagnosis Overweight/Obesity BMI> 30% ICD-10 E66: No Diagnosis High BMI/Morbid Obesity BMI> 35% ICD-10 Z68: No Outcomes/Goals: Pt sets, maintains & shows weight loss goal & trend during rehab Intervention/Plan: Instruct on ideal BMI & set weight loss goal w/patient, Assist pt to ID & incorporate diet changes for weight loss by S9 30 day Reassessments:: Progressing - Healthy Eating Habits Will attend diet classes:: Yes Outcomes/Goals:: Consume diet rich in vegs,fruits,whole grain/high fiber,fish,lean meat, Limit sat/trans fats,cholesterol & added salts & sugars Intervention/Plan:: Assess current eating habits 30-day Reassessments:: Progressing - Education Gave educational materials for:: Healthy eating Medical- 30-Day Assessment - Visit Date of Eval: 11/04/20 Session #:: 10 - Medication Compliance Preventative Medication(s):: Aspirin, Statin/lipid, Beta esau, Warfarin/Coumadin H/O mental health issues: depression, anxiety, or addiction?: No Doesn?t believe in the benefits of treatment?: No Believes medications are unnecessary or harmful?: No Has a concern about medication side effects?: No Expresses concern over the cost of medications?: No Outcomes/Goals: Verbalizes medications,desired effect & common side effects @ DC, Pt self-reports following medication regimen, Keeps card in wallet w/medications listed by DC Interventions/plans: Instruct on medication effects & side effects, Review medication list w/patient every two weeks, Instruct importance of taking meds as ordered & assist problem solving 30-day Reassessments:: Progressing - Tobacco Use Tobacco Use: Non-smoker - Hypertension Hypertension Diagnosis:: Hypertension ICD-10 I10 Resting Blood Pressure:: 114/60 [place] [employer] Hypertension Guidelines: [place] [employer] Hypertension Guidelines. Normal BP Less than 120/80. Elevated BP 120/80. Hypertension Stage 1: BP 130-139/80-89. Hypertesnion Stage 2: BP 140 or higher/90 or higher. Hypertension Crisis: BP higher than 180/120 Peak Exercise Blood Pressure:: 144/68 Outcomes/Goals: Able to verbalize/achieve optimal blood pressure <130/80, Incorporates diet changes & exercise for blood pressure control by DC Interventions/plan: Instruct on optimal blood pressure, hypertension & medications, Instruct on effects of sodium, alcohol, stress, exercise &hypertension 30 day Reassessments:: Progressing - Tobacco Cessation Referral Smoking Cessation Referral:: No Individual Education/Counseling:: No Education Schedule Given:: Yes Psychosocial - 30-Day Assess - VIsit Date of Eval: 11/04/20 Session #:: 10 Not Applicable: Yes History of previous Mental disease:: No - Target Goals Target Goals: Assess presence or absence of depression. Using a valid screening tool, maximizes coping skills. Positive support system - Psychosocial Test Tool Used:: PHQ-9 Questionnaire phq-9 Severity: Severity. 1-4 Minimal Depression. 5-9 Mild Depression. 10-14 Moderate Depression. 15-19 Moderately Sever Depression. 20-27 Severe Depression. Rule: - Referral to Behavioral Health PS - Interventions: Yes Attend Stress Management Classes, No Referral to Behavioral Health if PHQ-9 score >9:, No Referral to [facility], No Referral to Physician if PHQ-9 if score is 5-9: - Outcomes/Goals: See list Psychosocial Outcomes/Goals:: ID's personal stressors & 2 strategies to manage stress by discharge - Intervention/Plan: See List Interventions/Plan:: Assess stressors,coping strategies & signs of derpression on admission, Instruct/assist pt to develop coping & personal stress Mgt strategies, Instruct patient to recognize signs & symptoms of depression, Instruct patient to recog - 30-day Reassessments: 30 day Reassessments:: Progressing Patient Health Questionnaire 30-Day Re-eval Assessment 1. Little interest or pleasure in doing things: Several days 2. Feeling down, depressed, or hopeless: Not at all 3. Trouble falling or staying asleep, or sleeping too much: Several days 4. Feeling tired or having little energy: More than half the days 5. Poor appetite or overeating: Not at all 6. Feeling bad about yourself -- or that you are a failure or have let yourself or your family down: Not at all 7. Trouble concentrating on things, such as reading the newspaper or watching television: Not at all 8. Moving or speaking so slowly that other people could have noticed. Or the opposite - being so fidgety or restless that you have been moving around a lot more than usual: Not at all 9. Thoughts that you would be better off , or of hurting yourself in some way: Not at all How difficult have these problems made it for you to do your work, take care of things at home, or get along with other people?: Somewhat difficult Total Score: 4 Self-Efficacy 30-Day Re-eval Assessment We would like to know how confident you are in doing certain activities. Please select your confidence level for:: Select your confidence level for the following using the scale 1-10 where 1 is not at all confident and 10 is totally confident. Your score is the average of all 6 responses. Fatigue: How confident are you that you can keep the fatigue caused by your disease from interfering with the things you want to do? Select Number: 10 Physical Discomfort or Pain: How confident are you that you can keep the physical discomfort or pain of your disease from interfering with the things you want to do? Select Number: 10 Emotional Distress: How confident are you that you can keep the emotional distress caused by your disease from interfering with the things you want to do? Select Number: 10 Other Symptoms or Health Problems: How confident are you that you can keep other symptoms or health problems from interfering with the things you want to do? Select Number: 9 Different Tasks and Activities: How confident are you that you can do the different tasks and activities needed to manage your health condition so as to reduce your need to see a doctor? Select Number: 10 Medication: How confident are you that you can do things other than just taking medication to reduce how much your illness affects your everyday life? Select Number: 8 Total Score:: 9
[2020-11-04 11:11] VITALS: BP 114/60; BP 144/68; BMI 27.8
== END 2020-11-13 23:59 ==
LOC: CR 11:30
PROVIDERS: PCP Internal Medicine; Referring Provider Internal Medicine Cardiovascular Disease; Visit Provider Internal Medicine Cardiovascular Disease
DX: I25.10 Atherosclerotic heart disease of native coronary artery without angina pectoris (principal); I10 Essential (primary) hypertension; I49.1 Atrial premature depolarization; I49.3 Ventricular premature depolarization; I47.2 Ventricular tachycardia; Z95.2 Presence of prosthetic heart valve; E78.2 Mixed hyperlipidemia; E11.9 Type 2 diabetes mellitus without complications
CPT/HCPCS: 93798

== ENCOUNTER 2020-12-05 10:30 | Outpatient (RCR) | payer MEDICARE, SELFPAY ==
[2020-10-08 10:18] VITALS: BMI 28.2
[2020-11-04 11:11] VITALS: BMI 27.8
== END 2020-12-13 23:59 ==
LOC: DC 10:30
PROVIDERS: PCP Internal Medicine; Visit Provider Internal Medicine Cardiovascular Disease
DX: E11.9 Type 2 diabetes mellitus without complications (principal)
CPT/HCPCS: 97802; G0108

== ENCOUNTER 2020-12-13 11:30 | Outpatient (RCR) | payer MEDICARE, SELFPAY ==
[2020-10-08 10:18] VITALS: BMI 28.2
[2020-11-04 11:11] VITALS: BMI 27.8
[2020-11-14 00:46] VITALS: BP 114/60; BP 144/68
--- NOTE | 2020-12-04 06:54 | PCM.CR.ITP ---
Exercise - 60-day Assessment - Visit Date of Eval: 12/04/20 Session #:: 19 - Physician Prescribed Exercise Modalities: Treadmill, NuStep, SciFit Frequency: 3x/week for 12 weeks [36 sessions] Intensity: 60-80% of age predicted maximum heart rate reserve Current METSs:: 3.5 unchanged Target Heart Rate:: 96-125 Current RPE:: 13-14 Maximum Excercise HR:: 102 Resting Blood Pressure: 138/52 - still elevated w/medication Maximum Exercise Blood Pressure: 142/64 EKG Type: NSR to sinus tach w/PVCs. - Outcomes & Goals Goals:: Verbalizes understanding of THR, RPE & goal METS by session 6, Documents in home exercise log/reports 30 min aerobic 5 day/wk by DC, Demonstrates accurate pulse taking by DC - Intervention & Plan Exercise Program Goals: Instruct on personal THR & RPE, Instruct on MET level & personal MET goal, Show patient to take own pulse /validate performance until accurate, Instruct on home exercise - 30-day Reassessments 30 day Reassessments:: Progressing - Physical Activity Home Exercise Physical Activity - Home Exercise: Safe Exercise, Warm-up, Self-monitoring, Cool-Down, Home Exercise > 30 min Daily, Sitting Time <3 hours/daily - Outcomes & Goals Outcomes/Goals: Demonstrates correct Warm-up/exercise Cool-Down (S3) if = 2.5 METs, Verbalizes symptoms of exercise intolerance by Session 3 (S3), Demonstrate safe equipment use (S3) & follows exercise prescrition (6) - Intervention & Plan Plan/Intervention: Instruct warm-up & cool-down if exercising at > 2 METs, Instruct on symptoms of exercise intolerance & actions to take, Instruct & monitor on saf, Assess intial functional capacity & safety risk - 30-day Reassessments 30 day Reassessments:: Progressing Nutrition - 60-Day Assessment - Program Goals Nutrition Program Goals: LDL <100 optimal. 100 - 129 Near optimal. 130 - 159 Borderline High. 160 - 189 High. Total Cholesterol <200 desirable. 200 - 239 Borderline High. >/= 240 High. HDL < 40 Low >/=60 High. Triglycerides <150 desirable. <199 optimal. VlDL 5 - 40. HgbA1C <7%. BMI <25 Patient has diagnosis of Hyperlipidemia (ICD E78)?: Yes - Visit Date of Assessment:: 12/04/20 Session #:: 19 - no new labs - Cholesterol/Lipids Determine presence & major risk factors that modify LDL goal: Hypertension or hypertensive medication, Family history of premature CHD in Male < 55 years: female <65 yearsFa, Age men > 45 years; women >/= 55 years Outcomes/Goals: Pt IDs own risk factors & lifestyle modifications by Session 10, Verbalizes symptoms of angina & response by session 3., Pt independently manages Intervention/Plan: Instruct on personal lipid levels & lipid goals/NCEP guidelines, Instruct on cholesterol Referral to dietitian:: Yes - previously referred. 30-day Reassessments:: Progressing - Diabetes (Other Core Measures) Diabetes Type: Diagnosis Type II ICD-10 E11 Fasting blood glucose:: 119 Hgb A1C (4.2 -6.3): 6.5 Insulin dependent injection/pump?: Yes Non-Insulin Dependent?: Yes - metformin Do you monitor your blood sugar at home?: Yes Referral to Diabetic Clinic:: Yes Outcomes/Goals:: Able to state symptoms of, Able to state, Able to state Intervention/Plan:: Instruct on, Refer to, Instruct on 30-day Reassessments:: Progressing - Weight Mgt (Other Care) Not Applicable: Yes Height: 5 ft 1 in Weight:: 146 lb 8 oz BMI: 27.6 Diagnosis Overweight/Obesity BMI> 30% ICD-10 E66: No Diagnosis High BMI/Morbid Obesity BMI> 35% ICD-10 Z68: No Outcomes/Goals: Pt sets, maintains & shows weight loss goal & trend during rehab Intervention/Plan: Instruct on ideal BMI & set weight loss goal w/patient 30 day Reassessments:: Progressing - Healthy Eating Habits Will attend diet classes:: Yes Outcomes/Goals:: Consume diet rich in vegs,fruits,whole grain/high fiber,fish,lean meat, Limit sat/trans fats,cholesterol & added salts & sugars Intervention/Plan:: Assess current eating habits 30-day Reassessments:: Progressing - Education Gave educational materials for:: Signs & symptoms of hypoglycemia, Signs & symptoms of hyperglycemia, Relate diabetes to coronary artery disease, Healthy eating Medical- 60-Day Assessment - Visit Date of Eval: 12/04/20 Session #:: 19 - Medication Compliance Preventative Medication(s):: Aspirin, Statin/lipid, Beta esau, Warfarin/Coumadin H/O mental health issues: depression, anxiety, or addiction?: No Doesn?t believe in the benefits of treatment?: No Believes medications are unnecessary or harmful?: No Has a concern about medication side effects?: No Expresses concern over the cost of medications?: No Outcomes/Goals: Verbalizes medications,desired effect & common side effects @ DC, Pt self-reports following medication regimen, Keeps card in wallet w/medications listed by DC Interventions/plans: Instruct on medication effects & side effects, Review medication list w/patient every two weeks, Instruct importance of taking meds as ordered & assist problem solving 30-day Reassessments:: Progressing - Tobacco Use Tobacco Use: Non-smoker - Hypertension Hypertension Diagnosis:: Hypertension ICD-10 I10 Resting Blood Pressure:: 138/52 - still elevated w/medication [place] [employer] Hypertension Guidelines: [place] [employer] Hypertension Guidelines. Normal BP Less than 120/80. Elevated BP 120/80. Hypertension Stage 1: BP 130-139/80-89. Hypertesnion Stage 2: BP 140 or higher/90 or higher. Hypertension Crisis: BP higher than 180/120 Peak Exercise Blood Pressure:: 142/64 Outcomes/Goals: Able to verbalize/achieve optimal blood pressure <130/80, Incorporates diet changes & exercise for blood pressure control by DC Interventions/plan: Instruct on optimal blood pressure, hypertension & medications, Instruct on effects of sodium, alcohol, stress, exercise &hypertension 30 day Reassessments:: Progressing - Tobacco Cessation Referral Smoking Cessation Referral:: No Individual Education/Counseling:: No Education Schedule Given:: Yes Psychosocial - 60-Day Assess - VIsit Date of Eval: 12/04/20 Session #:: 19 Not Applicable: Yes History of previous Mental disease:: No - Target Goals Target Goals: Assess presence or absence of depression. Using a valid screening tool, maximizes coping skills. Positive support system - Psychosocial Test Tool Used:: PHQ-9 Questionnaire phq-9 Severity: Severity. 1-4 Minimal Depression. 5-9 Mild Depression. 10-14 Moderate Depression. 15-19 Moderately Sever Depression. 20-27 Severe Depression. Rule: - Referral to Behavioral Health PS - Interventions: Yes Attend Stress Management Classes, No Referral to Behavioral Health if PHQ-9 score >9:, No Referral to [facility], No Referral to Physician if PHQ-9 if score is 5-9: - Outcomes/Goals: See list Psychosocial Outcomes/Goals:: ID's personal stressors & 2 strategies to manage stress by discharge - Intervention/Plan: See List Interventions/Plan:: Assess stressors,coping strategies & signs of derpression on admission, Instruct/assist pt to develop coping & personal stress Mgt strategies, Instruct patient to recognize signs & symptoms of depression, Instruct patient to recog - 30-day Reassessments: 30 day Reassessments:: Progressing Patient Health Questionnaire 60-Day Re-eval Assessment 1. Little interest or pleasure in doing things: Several days 2. Feeling down, depressed, or hopeless: Not at all 3. Trouble falling or staying asleep, or sleeping too much: Not at all 4. Feeling tired or having little energy: Not at all 5. Poor appetite or overeating: Not at all 6. Feeling bad about yourself -- or that you are a failure or have let yourself or your family down: Not at all 7. Trouble concentrating on things, such as reading the newspaper or watching television: Not at all 8. Moving or speaking so slowly that other people could have noticed. Or the opposite - being so fidgety or restless that you have been moving around a lot more than usual: Not at all 9. Thoughts that you would be better off , or of hurting yourself in some way: Not at all How difficult have these problems made it for you to do your work, take care of things at home, or get along with other people?: Not difficult at all Total Score: 1 Self-Efficacy 60-Day Re-eval Assessment We would like to know how confident you are in doing certain activities. Please select your confidence level for:: Select your confidence level for the following using the scale 1-10 where 1 is not at all confident and 10 is totally confident. Your score is the average of all 6 responses. Fatigue: How confident are you that you can keep the fatigue caused by your disease from interfering with the things you want to do? Select Number: 9 Physical Discomfort or Pain: How confident are you that you can keep the physical discomfort or pain of your disease from interfering with the things you want to do? Select Number: 10 Emotional Distress: How confident are you that you can keep the emotional distress caused by your disease from interfering with the things you want to do? Select Number: 10 Other Symptoms or Health Problems: How confident are you that you can keep other symptoms or health problems from interfering with the things you want to do? Select Number: 10 Different Tasks and Activities: How confident are you that you can do the different tasks and activities needed to manage your health condition so as to reduce your need to see a doctor? Select Number: 10 Medication: How confident are you that you can do things other than just taking medication to reduce how much your illness affects your everyday life? Select Number: 10 Total Score:: 9
[2020-12-04 07:04] VITALS: BP 138/52; BP 142/64; BMI 27.6
== END 2020-12-13 23:59 ==
LOC: CR 11:30
PROVIDERS: PCP Internal Medicine; Referring Provider Internal Medicine Cardiovascular Disease; Visit Provider Internal Medicine Cardiovascular Disease
DX: I25.10 Atherosclerotic heart disease of native coronary artery without angina pectoris (principal); I49.1 Atrial premature depolarization; I49.3 Ventricular premature depolarization; I47.2 Ventricular tachycardia; I10 Essential (primary) hypertension; Z95.2 Presence of prosthetic heart valve
CPT/HCPCS: 93798

== ENCOUNTER 2020-12-19 13:30 | Outpatient (RCR) | payer MEDICARE, SELFPAY ==
[2020-10-08 10:18] VITALS: BMI 28.2
[2020-12-04 07:04] VITALS: BMI 27.6
== END 2021-01-13 23:59 ==
LOC: DC 13:30
PROVIDERS: PCP Internal Medicine; Visit Provider Internal Medicine Cardiovascular Disease
DX: E11.9 Type 2 diabetes mellitus without complications (principal); E66.3 Overweight
CPT/HCPCS: 97803; G0109

== ENCOUNTER → 2020-12-31 08:59 | Outpatient (CLI) | payer MEDICARE, SELFPAY ==
[2020-12-04 07:04] VITALS: BMI 27.6
[2020-12-26 14:50] VITALS: BMI 26.5
== END ==
PROVIDERS: PCP Internal Medicine; Referring Provider Internal Medicine Cardiovascular Disease; Visit Provider Internal Medicine Cardiovascular Disease
DX: I47.2 Ventricular tachycardia (principal); I49.1 Atrial premature depolarization; I49.3 Ventricular premature depolarization; I48.0 Paroxysmal atrial fibrillation
CPT/HCPCS: 93225; 93226

== ENCOUNTER 2021-01-01 11:30 | Outpatient (RCR) | payer MEDICARE, SELFPAY ==
[2020-10-08 10:18] VITALS: BMI 28.2
[2020-12-04 07:04] VITALS: BMI 27.6
[2020-12-14 00:44] VITALS: BP 138/52; BP 142/64
== END 2021-01-13 23:59 ==
LOC: CR 11:30
PROVIDERS: PCP Internal Medicine; Referring Provider Internal Medicine Cardiovascular Disease; Visit Provider Internal Medicine Cardiovascular Disease
DX: I25.10 Atherosclerotic heart disease of native coronary artery without angina pectoris (principal); I49.1 Atrial premature depolarization; I49.3 Ventricular premature depolarization; I47.2 Ventricular tachycardia; I10 Essential (primary) hypertension; Z95.2 Presence of prosthetic heart valve
CPT/HCPCS: 93798

== ENCOUNTER 2021-02-04 10:00 | Outpatient (RCR) | payer MEDICARE, SELFPAY ==
[2020-12-04 07:04] VITALS: BMI 27.6
[2020-12-26 14:50] VITALS: BMI 26.5
== END 2021-02-12 23:59 ==
LOC: DC 10:00
PROVIDERS: PCP Internal Medicine; Visit Provider Internal Medicine Cardiovascular Disease
DX: E11.9 Type 2 diabetes mellitus without complications (principal); E78.5 Hyperlipidemia, unspecified; I10 Essential (primary) hypertension
CPT/HCPCS: 97803; G0109

== ENCOUNTER → 2021-02-18 15:05 | Outpatient (CLI) | payer MEDICARE, SELFPAY ==
[2020-12-04 07:04] VITALS: BMI 27.6
[2020-12-26 14:50] VITALS: BMI 26.5
[2021-02-18 15:49] LABS: Cholesterol 221 mg/dL (200); High Density Lipoprotein 53 mg/dL; Triglycerides 217 mg/dL; Very Low Density Lipoprotein 43 mg/dL (5-40)
[2021-02-18 15:50] LABS: Vitamin D,25 Hydroxy 46.1 ng/mL
[2021-02-18 15:54] LABS: Hemoglobin A1c 6.7 % (3.8-5.6)
[2021-02-18 16:02] LABS: Microalbumin:Creatinine Ratio 34.7 mg/g CRE (<30 mg/g CRE)
== END ==
PROVIDERS: PCP Internal Medicine; Referring Provider Internal Medicine; Visit Provider Internal Medicine
DX: E11.9 Type 2 diabetes mellitus without complications (principal); M85.80 Other specified disorders of bone density and structure, unspecified site
CPT/HCPCS: 80061; 82043; 82306; 82570; 83036

== ENCOUNTER 2021-03-11 10:00 | Outpatient (RCR) | payer MEDICARE, SELFPAY ==
[2020-12-04 07:04] VITALS: BMI 27.6
[2020-12-26 14:50] VITALS: BMI 26.5
== END 2021-03-15 23:59 ==
LOC: DC 10:00
PROVIDERS: PCP Internal Medicine; Visit Provider Internal Medicine Cardiovascular Disease
DX: E11.9 Type 2 diabetes mellitus without complications (principal); E78.5 Hyperlipidemia, unspecified; I10 Essential (primary) hypertension
CPT/HCPCS: 97803; G0109

== ENCOUNTER 2021-04-03 10:47 | Outpatient (RCR) | payer MEDICARE, SELFPAY ==
[2020-12-04 07:04] VITALS: BMI 27.6
[2020-12-26 14:50] VITALS: BMI 26.5
== END 2021-04-03 23:59 | disposition home or self-care (01) ==
LOC: DC 10:47
PROVIDERS: PCP Internal Medicine; Visit Provider Internal Medicine Cardiovascular Disease
DX: E11.9 Type 2 diabetes mellitus without complications (principal); I10 Essential (primary) hypertension; E78.5 Hyperlipidemia, unspecified
CPT/HCPCS: G0109

== ENCOUNTER 2021-08-22 16:25 | Emergency (ER) | payer MEDICARE, SELFPAY ==
[2020-12-04 07:04] VITALS: BMI 27.6
[2021-08-22 16:26] VITALS: BP 149/59; PULSE 71; RESP 16; TEMP 36.7; O2SAT 97; BMI 25.6
--- NOTE | 2021-08-22 16:30 | RAD_ITS ---
STUDY: X-RAY - PELVIS AND LEFT HIP REASON FOR EXAM: Female, 71 years old. Fall today on the left hip. Pain. History of bursitis of the left hip with chronic pain. TECHNIQUE: 4 views of the pelvis and hip. COMPARISON: Pelvis and right hip, 01/30/2018. FINDINGS: There is a non-specific bowel gas pattern. Normal visualized soft tissue structures. Stable surgical changes of the right pelvis. There is evidence of tubal ligation. Normal bilateral iliac wings, sacroiliac joints and visualized sacrum. Normal bilateral superior and inferior pubic rami. Normal pubic symphysis. Normal bilateral ischial tuberosities. Stable degenerative changes of the right hip. Normal visualized left femoral head. 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 There is mild articular joint space narrowing of the left hip. No major interval change from prior study. RAD/HIP, UNI W/ Pelvis 2-3 Views IMPRESSION: Degenerative changes of the left hip. These appear stable when compared to the 2018 study. There is no major interval change in the pelvic findings. Electronically Signed: Dorian Cervantes DO at 17:03 EST Tel [phone], Service support ,
--- NOTE | 2021-08-22 18:01 | EDS_ITS ---
HPI History of Present Illness Chief Complaint: Lower Extremity Injury Narrative Narrative: 71-year-old female presenting with left hip pain after mechanical fall. She states he is having difficulty walking but was able to get up and bear weight. She states that this was purely mechanical and did not feel weak prior to this. Patient is on Coumadin for history of atrial fibrillation. She has not had this checked recently. She has no lacerations or abrasions. She had no vaginal or rectal bleeding. She does not have abdominal pain. [facility] Medical History (Updated 08/22/21 @ 19:[address] Sony Diaz, DO) Abnormal electrocardiogram Atherosclerotic heart disease of [place] coronary artery without angina pectoris Atrial fibrillation Bacteremia Chest pain Chest tightness Dyslipidemia Dyspnea Encounter for long-term current use of high risk medication Essential hypertension Hypertension Mitral valve disorder Murmur, functional Nonrheumatic aortic (valve) stenosis Palpitations Paroxysmal atrial fibrillation Paroxysmal ventricular tachycardia Premature atrial contraction Premature ventricular contraction SIRS (systemic inflammatory response syndrome) Type 2 diabetes mellitus Ventricular tachycardia Home Medications gemfibrozil [Lopid] 600 mg PO BIDAC 07/10/13 [History Last Taken 01/30/18] acetaminophen 650 mg PO Q6H PRN PRN tab 10/20/17 [Rx Last Taken 01/30/18] warfarin 5 mg PO TuThSa@1700 tab 10/20/17 [Rx Last Taken 07/12/20] warfarin 6 mg PO SuMoWeFr@1700 tab 10/20/17 [Rx Last Taken 2 Days Ago ~01/28/18] atorvastatin 40 mg tablet 40 mg PO QDAY 12/21/17 [History Last Taken 01/30/18] multivitamin 1 tab PO QDAY 12/21/17 [History Last Taken 1 Day Ago ~01/29/18] insulin glargine 100 unit/mL (3 mL) subcutaneous pen 40 unit SC QHS ml 02/08/20 [History Last Taken Unknown] metformin 500 mg tablet 2,000 mg PO DAILY tab 02/08/20 [History Last Taken 07/19/20] aspirin 81 mg tablet,delayed release 81 mg PO DAILY #1 tab 09/30/20 [Rx Last Taken Unknown] meclizine 12.5 mg tablet 12.5 mg PO TID PRN 09/30/20 [History Last Taken Unknown] atenolol 50 mg tablet 50 mg PO DAILY tab 07/03/21 [History Last Taken Unknown] oxycodone 5 mg PO Q6H PRN 3 Days #12 cap 08/22/21 [Rx Last Taken Unknown] Allergy/AdvReac Type Severity Reaction Status Date / Time Calcium Channel Blocking Allergy Rash Verified 07/03/21 13:09 Agent Dilt [Calcium Channel Blocking Agents-Win] Family History Mother CAD (coronary artery disease) Brother hyperlipidemia Brother Hypertension Father CAD (coronary artery disease) Surgical History Bioprosthetic mitral valve replacement, current hospitalization H/O shoulder replacement History of left heart catheterization (LHC) (~07/19/20) History of mitral valve replacement with mechanical valve (~09/29/01) 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) Social History Smoking Status: Former smoker alcohol intake: never substance use type: does not use caffeine: Yes Type: coffee Number of servings: 1 what type of physical activity do you participate in: walking frequency: daily duration: 15-30 minutes/day seatbelt use: always do you feel safe at home: Yes ROS ROS ED Constitutional Constitutional ED: Denies chills, fever(s) or sweats Eyes Eyes: Denies blurry vision or change in vision ENT ENT ED: Denies ear pain or sore throat Cardiovascular Cardiovascular: Denies chest pain, palpitations or racing heartbeat Respiratory/Chest Respiratory/Chest: Denies cough, dyspnea or sputum Gastrointestinal Gastrointestinal: Denies abdominal pain, constipation, diarrhea, nausea or vomiting Genitourinary Genitourinary ED: Denies dysuria, hematuria or urinary frequency Musculoskeletal Musculoskeletal: Reports neck pain and other Details: Left hip pain. Integumentary Denies abscess, Abrasions or rash Neurologic Neurologic: Denies headache(s), paresthesias or weakness Psychiatric Psychiatric: Denies anxiety, depression, suicidal ideation or suicidal thoughts Endocrine Endocrinology: Denies polydipsia or polyuria EXAM Physical Exam Const Vital Signs: 08/22/21 16:26 08/22/21 20:41 Temperature 98.1 F Temperature Source Temporal Pulse Rate 71 74 Respiratory Rate 16 16 Blood Pressure 149/59 H 129/76 H Blood Pressure Mean 89 93 Pulse Ox 97 98 Oxygen Delivery Method Room Air Room Air Positive well nourished General Appearance ED: NAD; Negative for pallor HEENT Reports normocephalic, head/scalp atraumatic and moist mucous membranes Eyes PERRL and EOMs intact bilaterally Neck no lymphadenopathy and supple Chest Wall inspection of chest normal and palpation of chest normal Resp normal respiratory effort and clear to auscultation bilaterally Auscultation: Negative for rales, rhonchi or wheezes Cardio regular rate and regular rhythm GI normal to inspection, nondistended, normoactive bowel sounds and non-distended Auscultation: normoactive bowel sounds Palpation: soft Narrative: Deferred Extremity Extremity Narrative: Pain with range of motion of the left hip. Left leg is not shortened or externally rotated. General Extremety ED: Yes tenderness Neuro oriented x3 and CN's II-XII intact bilaterally Sensorium / Orientation: alert Motor Exam: strength 5/5 throughout Psych mental status grossly normal Attitude: No agitated Skin no rashes or lesions noted and no wounds General Skin Exam: Negative for jaundice or pallor MDM MDM MDM Narrative Medical decision making narrative: Patient presenting after mechanical fall. She is having left hip pain. On my interpretation there appears to be some mildly displaced fractures of the superior and inferior pubic rami on the left. The radiologist initially read this is negative and this was sent for addendum and he does now agree. Given patient is on Coumadin I will check some basic lab work, an INR, CT scan of the abdomen pelvis to ensure there is no bleeding. CBC and BMP are unremarkable. LFTs are normal. INR is therapeutic at 2.5. CT of the abdomen pelvis only identifies. Inferior pubic rami fractures. Patient was discussed with Dr. Yan who she will follow-up with. He wants to see her next week. She is given oxycodone for pain. She does have a wheelchair and a walker at home that she can use. She is cautioned as she is a fall risk to use her assistive devices and receive help from her family. Patient discharged home in stable condition. Impression: 1. Left superior and inferior pubic rami fracture 2. Mechanical fall Lab Data Labs: Laboratory Results - last 24 hr 0108/22/21 08/22/21 18:20 18:20 18:20 WBC 9.4 RBC 4.69 Hgb 14.1 Hct 43.4 MCV 92.5 MCH 30.1 MCHC 32.5 RDW Std Deviation 44.4 H RDW Coeff of Tk 13.2 Plt Count 309 MPV 10.8 Immature Gran % (Auto) 0.600 Neut % (Auto) 81.5 H Lymph % (Auto) 10.7 L [place] % (Auto) 5.6 Eos % (Auto) 1.3 Baso % (Auto) 0.3 Absolute Neuts (auto) 7.7 Absolute Lymphs (auto) 1.01 Nucleated RBC % 0 PT 26.4 H INR 2.5 Sodium 140 Potassium 4.1 Chloride 107 Carbon Dioxide 24.0 Anion Gap 9 BUN 22 H Creatinine 0.68 Estim Creat Clear Calc 39.63 Est GFR (MDRD) Af Amer 108 Est GFR (MDRD) Non-Af 89 BUN/Creatinine Ratio 32.1 H Glucose 283 H Calcium 9.8 Total Bilirubin 0.60 AST 29 ALT 27 Alkaline Phosphatase 112 Total Protein 7.7 Albumin 4.0 Globulin 3.7 Albumin/Globulin Ratio 1.1 Radiography Diagnostic Testing: Clinical Impression(s) from Imaging Studies Hip/Pelvis X-Ray 08/22/21 16:30 IMPRESSION: Degenerative changes of the left hip. These appear stable when compared to the 2018 study. There is no major interval change in the pelvic findings. Electronically Signed: Dorian Cervantes DO at 17:03 EST Tel [phone], Service support , ADDENDUM: 08/22/21 1751 Abdomen/Pelvis CT 08/22/21 18:32 IMPRESSION: 1. Fracture of the left superior and inferior pubic rami. 2. Right inguinal hernia. 3. Gallstones without acute cholecystitis. 4. Atherosclerotic changes of the abdominal aorta. Electronically Signed: Dorian Cervantes DO at 19:27 EST Tel [phone], Service support , Discharge Plan Triage Chief Complaint: Lower Extremity Injury ED Provider: Sony Diaz Dx/Rx/DC Orders Instructions: ED Pelvic Fracture Prescriptions: New oxycodone 5 mg capsule 5 mg PO Q6H PRN (Reason: pain) 3 Days Qty: 12 RF: 0 No Action Lant Solostar U-100 Insulin 100 unit/mL (3 mL) insulin pen 40 unit SC QHS RF: 0 atorvastatin 40 mg tablet 40 mg PO QDAY RF: 0 multivitamin [Daily Multi-Vitamin] tablet 1 tab PO QDAY RF: 0 metformin 500 mg tablet 2,000 mg PO DAILY RF: 0 atenolol 50 mg tablet 50 mg PO DAILY RF: 0 aspirin 81 mg tablet,delayed release (DR/EC) 81 mg PO DAILY Qty: 1 RF: 0 gemfibrozil [Lopid] 600 MG tablet 600 mg PO BIDAC RF: 0 acetaminophen 325 MG tablet 650 mg PO Q6H PRN PRN (Reason: FEVER) RF: 0 warfarin 6 MG tablet 6 mg PO SuMoWeFr@1700 RF: 0 warfarin 5 MG tablet 5 mg PO TuThSa@1700 RF: 0 meclizine 12.5 mg tablet 12.5 mg PO TID PRN (Reason: Dizziness) RF: 0 Primary Care Provider: Gwen David Referrals: Justin Yan DO [STAFF PHYSICIAN] - 3-5 Days Gwen David MD [Primary Care Provider] - Disposition Disposition: Home, Self Care Discharge Date/Time: 08/22/21 20:51
[2021-08-22] MEDS: Morphine 4 MG/ML Syringe IV (18:19)
[2021-08-22] MEDS: Ondansetron 4 MG/2 ML Vial IV (18:19)
[2021-08-22 18:32] LABS: Absolute Lymphocyte Count 1.01 X10^3/uL (0.83-4.51); Absolute Neutrophil Count 7.7 X10^3/uL (2.0-7.7); Basophil# 0.03 X10^3/uL; Basophil% 0.3 % (0-1); Eosinophil# 0.12 X10^3/uL; Eosinophils% 1.3 % (0-5); Hematocrit 43.4 % (37-47); Hemoglobin 14.1 g/dL (12.0-15.0); Lymphocyte # 1.01 X10^3/ul (0.83-4.51); Lymphocyte % 10.7 % (19-41); Mean Corp Hgb Conc 32.5 g/dL (32-36); Mean Corpuscular Hgb 30.1 pg (27.0-32.0); Mean Corpuscular Volume 92.5 fL (81-99); Mean Platelet Vol. 10.8 fl (6.2-12.0); Monocyte# 0.53 X10^3/uL; Monocyte% 5.6 % (0-10); NRBC Flagged by Analyzer 0 % (0-5); Neutrophil # 7.69 X10^3/uL (2.7-7.7); Neutrophil % 81.5 % (47-70); Platelet Count 309 K/mm3 (150-450); RBC Distribution Width CV 13.2 % (11.6-14.6); RBC Distribution Width SD 44.4 fl (35.1-43.9); Red Blood Count 4.69 M/mm3 (4.2-5.4); White Blood Count 9.4 K/mm3 (4.4-11.0)
--- NOTE | 2021-08-22 18:32 | CT_ITS ---
STUDY: CT ABDOMEN AND PELVIS WITHOUT CONTRAST REASON FOR EXAM: Female, 71 years old. Pelvic fracture. Fall RADIATION DOSAGE (If Supplied By Facility): CTDIvol = ( 10.02 ) mGy, DLP = ( 515.78 ) mGycm TECHNIQUE: Transaxial images were obtained from the dome of the diaphragm to the symphysis pubis without oral contrast, and without intravenous contrast. Sagittal and coronal images were reconstructed. Individualized dose optimization techniques were used for this CT. COMPARISON: None. FINDINGS: The visualized lung bases are unremarkable. The visualized portions of the heart are within normal limits. Question mitral and aortic valve replacement. Normal liver. There are multiple gallstones within an otherwise normal gallbladder. No biliary ductal dilatation or choledocholithiasis. Normal spleen. Normal pancreas. Normal bilateral adrenal glands. Normal right kidney. Normal left kidney. Normal visualized ureters. Hiatal hernia. The distal stomach is unremarkable. Normal small intestine. Normal colon. The appendix is visualized and appears normal. There is diffuse atherosclerotic calcification of the abdominal aorta, without a demonstrated aneurysm. Normal inferior vena cava. Normal retroperitoneum. Normal urinary bladder. Normal uterus and adnexa. There is no pelvic lymphadenopathy. No free air or free fluid is seen within the peritoneal cavity. Right inguinal hernia of omental fat. There is evidence of right inguinal hernia repair. Abdominal wall is otherwise unremarkable. There are degenerative changes of the lumbar spine. Normal sacrum and sacroiliac joints. Normal iliac wings. There are minimally displaced fractures of the left superior and inferior pubic rami. The right pelvis is intact. There are degenerative changes of bilateral hips. CT/Abdomen/Pelvis without Cont IMPRESSION: 1. Fracture of the left superior and inferior pubic rami. 2. Right inguinal hernia. 3. Gallstones without acute cholecystitis. 4. Atherosclerotic changes of the abdominal aorta. Electronically Signed: Dorian Cervantes DO at 19:27 EST Tel [phone], Service support ,
[2021-08-22 18:48] LABS: ALB/GLOB Ratio 1.1 RATIO (0.9-2.4); AST(SGOT) 29 U/L (15-37); Alanine Aminotransfer ALT/SGPT 27 U/L (13-56); Alkaline Phosphatase 112 U/L (45-117); Anion Gap 9 (5-15); BUN 22 mg/dL (7-18); BUN/Creat Ratio 32.1 RATIO (10-20); Calcium,Total 9.8 mg/dL (8.5-10.1); Chloride 107 mmol/L (98-107); Creatinine, Serum 0.68 mg/dL (0.55-1.02); EST Glomerular Filtration Rate 89 mL/min (>60); Est Glom Filt Rate - Afr Amer 108 mL/min (>60); Estimated Creatinine Clearance 39.63 ml/min; Globulin 3.7 g/dL (2.2-4.2); Glucose 283 mg/dL (74-106); Potassium 4.1 mmol/L (3.5-5.1); Protein, Total 7.7 g/dL (6.4-8.2); Sodium Level 140 mmol/L (136-145)
[2021-08-22 18:49] LABS: International Normalized Ratio 2.5; Prothrombin Time (Protime)PT. 26.4 SECONDS (11.7-14.9)
[2021-08-22] MEDS: HYDROcodone Bitartrate/Apap 5/325 Tablet PO (20:35)
--- NOTE | 2021-08-22 20:36 | ED.RN ---
Patient is aware the prescriptions filled at the pharm are not all appropriate for her. She had the naprsyn and antibiotic to be given here earlier and was told three times that was an erroneous order, so she would not be getting it. but it got sent to the pharm. Friend went to the pharm to get the meds filled already and returned with all of them but it is written on her papers not to take the keflex or the naprosyn because does not need the atb and the nsaid is not appropriate with her coumadin, so she should only take the oxycodone. She is verbally aware and so is the friend, both verbalize understanding
[2021-08-22 20:41] VITALS: BP 129/76; PULSE 74; RESP 16; O2SAT 98
== END 2021-08-22 20:51 | disposition home or self-care (01) ==
PROVIDERS: Emergency Provider Student in an Organized Health Care Education/Training Program; PCP Internal Medicine; Visit Provider Student in an Organized Health Care Education/Training Program
DX: S32.512A Fracture of superior rim of left pubis, initial encounter for closed fracture (principal); S32.592A Other specified fracture of left pubis, initial encounter for closed fracture; I48.0 Paroxysmal atrial fibrillation; E11.9 Type 2 diabetes mellitus without complications; Z87.891 Personal history of nicotine dependence; I25.10 Atherosclerotic heart disease of native coronary artery without angina pectoris; I10 Essential (primary) hypertension; E78.5 Hyperlipidemia, unspecified; W19.XXXA Unspecified fall, initial encounter; Y93.9 Activity, unspecified; Y92.9 Unspecified place or not applicable; Z79.01 Long term (current) use of anticoagulants; Z79.899 Other long term (current) drug therapy; I35.0 Nonrheumatic aortic (valve) stenosis; Z95.2 Presence of prosthetic heart valve
CPT/HCPCS: 73502; 74176; 80053; 85025; 85610; 96374; 96375; 99284; J2405

== ENCOUNTER → 2021-10-23 11:10 | Outpatient (CLI) | payer MEDICARE, SELFPAY ==
[2020-12-04 07:04] VITALS: BMI 27.6
[2021-10-23 12:14] LABS: Hematocrit 43.8 % (37-47); Hemoglobin 14.2 g/dL (12.0-15.0); Mean Corp Hgb Conc 32.4 g/dL (32-36); Mean Corpuscular Hgb 30.8 pg (27.0-32.0); Mean Platelet Vol. 11.2 fl (6.2-12.0); Platelet Count 322 K/mm3 (150-450); RBC Distribution Width SD 48.9 fl (35.1-43.9); Red Blood Count 4.61 M/mm3 (4.2-5.4); White Blood Count 5.1 K/mm3 (4.4-11.0)
[2021-10-23 12:52] LABS: Anion Gap 6 (5-15); BUN 19 mg/dL (7-18); BUN/Creat Ratio 30.4 RATIO (10-20); Calcium,Total 9.7 mg/dL (8.5-10.1); Chloride 108 mmol/L (98-107); Creatinine, Serum 0.62 mg/dL (0.55-1.02); EST Glomerular Filtration Rate 99 mL/min (>60); Est Glom Filt Rate - Afr Amer 120 mL/min (>60); Glucose 246 mg/dL (74-106); Potassium 3.6 mmol/L (3.5-5.1); Sodium Level 140 mmol/L (136-145)
== END ==
PROVIDERS: PCP Internal Medicine
DX: I35.0 Nonrheumatic aortic (valve) stenosis (principal)
CPT/HCPCS: 36415; 80048; 85027

== ENCOUNTER 2022-06-07 12:21 | Emergency (ER) | payer MEDICARE, SELFPAY ==
[2020-12-04 07:04] VITALS: BMI 27.6
[2022-06-07 12:22] VITALS: BP 115/61; PULSE 77; RESP 18; TEMP 36.6; O2SAT 99; BMI 27.4
--- NOTE | 2022-06-07 13:14 | EDS_ITS ---
HPI HPI - GI History of Present Illness Chief Complaint: Diarrhea Informant: patient Abdominal Pain/Flank Pain Onset: Weeks Context: Gradual Onset Timing: Intermittent Current Severity: Mild Maximum Severity: Mild Nausea/Vomiting/Emesis GI Symptom: Negative for Nausea or Vomiting Diarrhea/Melena/Hematochezia GI Symptom: Positive for Diarrhea; Negative for Melena or Hematochezia Associated Symptoms Associated Symptoms: Negative for Dysuria, Frequency, Hematuria or Urgency Narrative Narrative: 72-year-old female history of A. fib, CAD, artificial heart valve on Coumadin and diabetes. States the last 2 weeks she has had intermittent episodes of diarrhea. Usually begins around 10 AM and resolves by 3 PM. And then restarts the following day. She denies any fever, chills or weight loss. She denies any melena since she does have hemorrhoids she is on Coumadin and occasionally she will have a small amount of blood in her stool but that is not new or worse. She denies any recent hospitalization or antibiotics. She has never had C. difficile. Prior similar symptoms: No Recent Illness/Hospitalization: No PFSH [facility] Medical History (Updated 06/07/22 @ 14:[address] Mukesh Ferguson MD) Abnormal electrocardiogram Atherosclerotic heart disease of [place] coronary artery without angina pectoris Atrial fibrillation Bacteremia Chest pain Chest tightness Dyslipidemia Dyspnea Encounter for long-term current use of high risk medication Essential hypertension Hypertension Mitral valve disorder Murmur, functional Nonrheumatic aortic (valve) stenosis Palpitations Paroxysmal atrial fibrillation Paroxysmal ventricular tachycardia Premature atrial contraction Premature ventricular contraction SIRS (systemic inflammatory response syndrome) Type 2 diabetes mellitus Ventricular tachycardia Home Medications gemfibrozil 600 mg tablet (Lopid) 600 mg PO BIDAC 07/10/13 [History Last Taken 01/30/18] acetaminophen 325 mg tablet 650 mg PO Q6H PRN PRN FEVER 10/20/17 [Rx Last Taken 01/30/18] atorvastatin 40 mg tablet 40 mg PO QDAY 12/21/17 [History Last Taken 01/30/18] multivitamin (Daily Multi-Vitamin tablet) 1 tab PO QDAY 12/21/17 [History Last Taken 1 Day Ago ~01/29/18] insulin glargine 100 unit/mL (3 mL) subcutaneous pen (Lantus Solostar U-100 Insulin) 40 unit subcut QHS 02/08/20 [History Last Taken Unknown] metformin 500 mg tablet 2,000 mg PO DAILY 02/08/20 [History Last Taken 07/19/20] aspirin 81 mg tablet,delayed release 81 mg PO DAILY #1 TAB 09/30/20 [Rx Last Taken Unknown] meclizine 12.5 mg tablet 12.5 mg PO TID PRN Dizziness 09/30/20 [History Last Leonard en Unknown] atenolol 50 mg tablet 50 mg PO DAILY 07/03/21 [History Last Taken Unknown] cholecalciferol (vitamin D3) 25 mcg (1,000 unit) capsule 25 mcg PO DAILY #1 cap 09/16/21 [Rx Last Taken Unknown] potassium chloride 10 mEq capsule,extended release 10 meq PO DAILY #1 cap 09/16/21 [Rx Last Taken Unknown] warfarin 3 mg tablet 3 mg PO .wednesday #1 TAB 09/16/21 [Rx Last Taken Unknown] warfarin 5 mg tablet 5 mg PO Q OTHER DAY 09/16/21 [Rx Last Taken Unknown] lisinopril 20 mg tablet 20 mg PO DAILY #90 tabs 12/31/21 [Rx Last Taken Unknown] Allergy/AdvReac Type Severity Reaction Status Date / Time Calcium Channel Blocking Allergy Rash Verified 06/07/22 12:21 Agent Dilt [Calcium Channel Blocking Agents-Win] Family History Mother CAD (coronary artery disease) Brother hyperlipidemia Brother Hypertension Father CAD (coronary artery disease) Surgical History Bioprosthetic mitral valve replacement, current hospitalization H/O shoulder replacement History of left heart catheterization (LHC) (~07/19/20) History of mitral valve replacement with mechanical valve (~09/29/01) 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 Review of Systems ROS Unobtainable: Denies due to encephalopathy Constitutional Constitutional ED: Denies chills or fever(s) ENT ENT ED: Denies ear pain Cardiovascular Cardiovascular: Denies chest pain Respiratory/Chest Respiratory/Chest: Denies cough or dyspnea Gastrointestinal Gastrointestinal: Reports diarrhea; Denies abdominal pain, constipation, melena, nausea or vomiting Genitourinary Genitourinary ED: Denies dysuria or hematuria Musculoskeletal Musculoskeletal: Denies arthralgias Integumentary Denies abscess Neurologic Neurologic: Denies headache(s) Psychiatric Psychiatric: Denies anxiety Endocrine Endocrinology: Denies polydipsia Hematologic/Lymphatic Hematologic/Lymphatic: Denies easy bleeding Allergic/Immunologic Allergic/Immunologic ED: Denies mouth swelling or tongue swelling EXAM Physical Exam Narrative Exam Narrative: 32-year-old female no acute distress vital signs stable afebrile. H EENT exam unremarkable. Neck nontender. Lungs Lear to auscultation bilaterally. Heart regular rhythm no murmur. Abdomen soft nontender. Normal bowel sounds no peritoneal signs. Moving all 4 extremities. Calves nontender no edema. Neurologically she is awake and alert. Const Vital Signs: 06/07/22 12:22 Temperature 97.8 F Temperature Source Temporal Pulse Rate 77 Respiratory Rate 18 Blood Pressure 115/61 Blood Pressure Mean 79 Pulse Ox 99 Oxygen Delivery Method Room Air Positive well nourished and well developed; Negative for obese, cachectic, contractures or unkempt General Appearance ED: well developed and NAD; Negative for unkempt, cachectic, contractures or pallor Nutritional Appearance: Negative for cachectic or obese HEENT Reports moist mucous membranes; Denies dry mucous membranes normocephalic and atraumatic; Negative for trauma or tenderness Mouth ED: No dry mucous membranes Mouth: No dry mucous membranes Eyes PERRL and EOMs intact bilaterally General Eye ED: Negative for pale conjunctiva or scleral icterus Neck no lymphadenopathy, supple and no JVD General: Negative for tenderness Carotids: Negative for other Lymph Lymphatic: Negative for other Resp normal respiratory effort and clear to auscultation bilaterally Effort and Inspection: Negative for respiratory distress or retractions Auscultation: Negative for rales, rhonchi or wheezes Cardio regular rate, regular rhythm, S1 normal heart sound and S2 normal heart sound GI non-tender, non-distended and no masses Inspection: Negative for abdominal distention Palpation: soft; Negative for tender Back/Spine no CVA tenderness General Back: Negative for CVA tenderness Cervical Spine: Negative for cervical spine tenderness Thoracic Spine / Upper Back: Negative for thoracic spinal tenderness Lumbar Spine / Lower Back: Negative for lumbar spinal tenderness Extremity full ROM General Extremety ED: Negative for edema or tenderness General Extremity: Negative for edema Neuro moves all extremities Sensorium / Orientation: alert, oriented to person, oriented to place and oriented to time; Negative for orientation impaired, confused, lethargic or stuporous Motor Exam: strength 5/5 throughout Psych mental status grossly normal and thought process normal Appearance: Negative for unkempt Attitude: No agitated Mood & Affect: Negative for depressed, anxious or tearful Skin no wounds General Skin Exam: Negative for jaundice or pallor Lesions: no lesions Rashes: no rashes Trauma: Negative for abrasion Nails: Negative for discolored MDM MDM MDM Narrative Medical decision making narrative: 72-year-old female intermittent diarrhea last 2 weeks. Exam benign. Screening labs to be obtained. She is on Coumadin I will get an INR. She does not need any imaging. Clinically she is not dehydrated. Stool culture for C. difficile will be obtained if she has a bowel movement while here. Repeat exam patient doing well. She had no bowel movements here so we can send in the stool cultures. Discussed with her all of her test results. She is going to hold her Coumadin tonight due to her INR being 4.9. Shoulder tonight and tomorrow have her PT/INR rechecked on Wednesday and then have her primary care physician inform her when she can restart it. She will talk to her primary care physician's office tomorrow. I have them on page currently to notify them of her INR results today. Lab Data Attestation: I reviewed the patient's lab results. Lab results narrative: CBC normal. White count of 5.9. H&H of 14.4 and 44. Platelets 334. Patient is on Coumadin her INR is elevated 4.9. Electrolytes unremarkable gap at 9 normal BUN and creatinine of 14 and 0.6. Liver enzymes are unremarkable. Labs: Laboratory Results - last 24 hr 06/07/22 06/07/22 06/07/22 13:39 13:39 13:39 WBC 5.9 RBC 4.74 Hgb 14.4 Hct 44.9 MCV 94.7 MCH 30.4 MCHC 32.1 RDW Std Deviation 45.7 H RDW Coeff of Tk 13.3 Plt Count 334 MPV 10.8 Immature Gran % (Auto) 0.500 Neut % (Auto) 67.1 Lymph % (Auto) 20.5 [place] % (Auto) 6.1 Eos % (Auto) 4.6 Baso % (Auto) 1.2 H Absolute Neuts (auto) 4.0 Absolute Lymphs (auto) 1.21 Nucleated RBC % 0 PT 45.8 H INR 4.9 H* Sodium 140 Potassium 4.5 Chloride 106 Carbon Dioxide 25.0 Anion Gap 9 BUN 14 Creatinine 0.66 Estim Creat Clear Calc 40.83 Est GFR (MDRD) Af Amer 113 Est GFR (MDRD) Non-Af 93 BUN/Creatinine Ratio 21.2 H Glucose 119 H Calcium 10.3 H Total Bilirubin 0.60 AST 26 ALT 21 Alkaline Phosphatase 101 Total Protein 7.8 Albumin 4.3 Globulin 3.5 Albumin/Globulin Ratio 1.2 Discharge Plan Triage Chief Complaint: Diarrhea ED Provider: Mukesh Ferguson Dx/Rx/DC Orders Clinical Impression: Diarrhea, Excessive anticoagulation, History of atrial fibrillation, History of diabetes mellitus Instructions: ED Diarrhea, Unknown Cause Prescriptions: No Action Lantus Solostar U-100 Insulin 100 unit/mL (3 mL) insulin pen 40 unit SC QHS atorvastatin 40 mg tablet 40 mg PO QDAY multivitamin [Daily Multi-Vitamin] tablet 1 tab PO QDAY metformin 500 mg tablet 2,000 mg PO DAILY atenolol 50 mg tablet 50 mg PO DAILY aspirin 81 mg tablet,delayed release (DR/EC) 81 mg PO DAILY Qty: 1 0RF lisinopril 20 mg tablet 20 mg PO DAILY Qty: 90 3RF gemfibrozil [Lopid] 600 MG tablet 600 mg PO BIDAC acetaminophen 325 MG tablet 650 mg PO Q6H PRN PRN (Reason: FEVER) 0RF meclizine 12.5 mg tablet 12.5 mg PO TID PRN (Reason: Dizziness) warfarin 5 mg tablet 5 mg PO Q OTHER DAY 0RF Protocol: Dose Management Condition: Wednesday Dose/Route: 5 mg Instruction: 1 x 5 mg tablet Condition: Wednesday Dose/Route: 7.5 mg Instruction: 1.5 x 5 mg tablets Condition: Wednesday Dose/Route: 7.5 mg Instruction: 1.5 x 5 mg tablets Condition: Wednesday Dose/Route: 5 mg Instruction: 1 x 5 mg tablet Condition: Dose/Route: 5 mg Instruction: 1 x 5 mg tablet Condition: Wednesday Dose/Route: 5 mg Instruction: 1 x 5 mg tablet Condition: Wednesday Dose/Route: 5 mg Instruction: 1 x 5 mg tablet Protocol Text: Adjustment Start Date: Wednesday08/13/20 INR Value: 2.90 INR Date: 07/31/20 warfarin 3 mg tablet 3 mg PO .wednesday Qty: 1 0RF potassium chloride 10 mEq capsule, extended release 10 meq PO DAILY Qty: 1 0RF cholecalciferol (vitamin D3) 25 mcg (1,000 unit) capsule 25 mcg PO DAILY Qty: 1 0RF Primary Care Provider: Gwen David Referrals: Gwen David MD [Primary Care Provider] - As soon as possible Activity Restrictions/Additional Instructions: Do not have a specific cause for your diarrhea if it continues you need stool cultures done. Your Coumadin level was too high. Today her INR is 4.9. Hold your Coumadin today and Wednesday. You need to have your Coumadin level which is the PT/INR rechecked on Wednesday and then have your primary care physician decide when to restart your Coumadin level. Disposition Disposition: Home, Self Care
[2022-06-07 14:00] LABS: Absolute Lymphocyte Count 1.21 X10^3/uL (0.83-4.51); Basophil# 0.07 X10^3/uL; Basophil% 1.2 % (0-1); Eosinophil# 0.27 X10^3/uL; Eosinophils% 4.6 % (0-5); Hematocrit 44.9 % (37-47); Hemoglobin 14.4 g/dL (12.0-15.0); Lymphocyte # 1.21 X10^3/ul (0.83-4.51); Lymphocyte % 20.5 % (19-41); Mean Corp Hgb Conc 32.1 g/dL (32-36); Mean Corpuscular Hgb 30.4 pg (27.0-32.0); Mean Corpuscular Volume 94.7 fL (81-99); Mean Platelet Vol. 10.8 fl (6.2-12.0); Monocyte# 0.36 X10^3/uL; Monocyte% 6.1 % (0-10); NRBC Flagged by Analyzer 0 % (0-5); Neutrophil # 3.96 X10^3/uL (2.7-7.7); Neutrophil % 67.1 % (47-70); Platelet Count 334 K/mm3 (150-450); RBC Distribution Width CV 13.3 % (11.6-14.6); RBC Distribution Width SD 45.7 fl (35.1-43.9); Red Blood Count 4.74 M/mm3 (4.2-5.4); White Blood Count 5.9 K/mm3 (4.4-11.0)
[2022-06-07 14:04] LABS: Prothrombin Time (Protime)PT. 45.8 SECONDS (11.7-14.9)
[2022-06-07 14:10] LABS: ALB/GLOB Ratio 1.2 RATIO (0.9-2.4); AST(SGOT) 26 U/L (15-37); Alanine Aminotransfer ALT/SGPT 21 U/L (13-56); Albumin, Serum 4.3 g/dL (3.2-5.0); Alkaline Phosphatase 101 U/L (45-117); Anion Gap 9 (5-15); BUN 14 mg/dL (7-18); BUN/Creat Ratio 21.2 RATIO (10-20); Calcium,Total 10.3 mg/dL (8.5-10.1); Chloride 106 mmol/L (98-107); Creatinine, Serum 0.66 mg/dL (0.55-1.02); EST Glomerular Filtration Rate 93 mL/min (>60); Est Glom Filt Rate - Afr Amer 113 mL/min (>60); Estimated Creatinine Clearance 40.83 ml/min; Globulin 3.5 g/dL (2.2-4.2); Glucose 119 mg/dL (74-106); Potassium 4.5 mmol/L (3.5-5.1); Protein, Total 7.8 g/dL (6.4-8.2); Sodium Level 140 mmol/L (136-145)
[2022-06-07 14:26] LABS: International Normalized Ratio 4.9
--- NOTE | 2022-06-07 14:26 | ED.RN ---
INR 4.9. DR DAHL
[2022-06-07 15:46] VITALS: BP 120/77; PULSE 71; RESP 18; O2SAT 97
== END 2022-06-07 15:47 | disposition home or self-care (01) ==
PROVIDERS: Emergency Provider Emergency Medicine; PCP Internal Medicine; Visit Provider Emergency Medicine
DX: R19.7 Diarrhea, unspecified (principal); I48.0 Paroxysmal atrial fibrillation; D68.32 Hemorrhagic disorder due to extrinsic circulating anticoagulants; E11.9 Type 2 diabetes mellitus without complications; Z79.4 Long term (current) use of insulin; T45.515A Adverse effect of anticoagulants, initial encounter; E78.5 Hyperlipidemia, unspecified; I25.10 Atherosclerotic heart disease of native coronary artery without angina pectoris; I10 Essential (primary) hypertension; Z95.2 Presence of prosthetic heart valve; Z79.01 Long term (current) use of anticoagulants; Z79.82 Long term (current) use of aspirin; Z79.84 Long term (current) use of oral hypoglycemic drugs; Z79.899 Other long term (current) drug therapy; Z87.891 Personal history of nicotine dependence
CPT/HCPCS: 80053; 85025; 85610; 99283

== ENCOUNTER 2022-10-21 14:16 | Inpatient (IN) | payer MEDICARE, SELFPAY ==
[2020-12-04 07:04] VITALS: BMI 27.6
[2022-10-16 17:08] LABS: Magnesium 1.7 mg/dL (1.6-2.6)
[2022-10-21] VITALS (13 sets, daily range): BP systolic 102–185; BP diastolic 42–76; PULSE 67–87; RESP 14–19; TEMP 36.6–37.4; O2SAT 95–100; BMI 27.2; BMI 29.6
[2022-10-21] MEDS: Magnesium 2 GM for ERAS IV (06:15)
[2022-10-21] MEDS: Lactated Ringers 1,000 ML 15 ML IV (06:34)
[2022-10-21] MEDS: Acetaminophen 500 MG Tablet 1000 MG PO ×3 (06:35→22:19)
[2022-10-21] MEDS: Gabapentin 600 MG Tablet PO (06:35)
[2022-10-21] MEDS: Insulin Lispro 100 UNIT/ML INSULN.PEN SC ×2 (06:56→10:23)
[2022-10-21 07:01] LABS: Bedside Glucose 202 mg/dL (74-106)
[2022-10-21 07:35] LABS: INR Fingerstick 1.1; Prothrombin Time Fingerstick 14.1 SEC (11.7-14.9)
--- NOTE | 2022-10-21 08:00 | HIP_PTH ---
PATIENT: MACIEL BUCIO LOC: MS3 U#:[id number] AGE/SX: 72/F ROOM: RI317 RE10/22/[address]: Dr. Konstantin Weston DO : 1950 BED: 1 DIS: 10/28/2022 SPEC #: [id number] RECD: 10/21/22 11:53 STATUS: GUSTAVO REPaulette #: [id number] MARGARITA: 10/21/22 08:[address]: Konstantin Weston DEPT: SURGICAL PATHOLOGY RECD BY: Maria Guadalupe Delgado ENTERED: 10/21/22 13:21 SP TYPE: TOTAL HIP OTHR DR: Dr. Gwen David MD Tissues: Hip, NOS Procedures: Decalcification bone/plaque Surgery Specimen Level IV HEADER OPERATION: ERAS, total hip replacement PRE-OP DIAGNOSIS: Posttraumatic osteoarthritis left hip TISSUE SUBMITTED: Left hip bone and tissue MICROSCOPIC DIAGNOSIS Left hip bone and tissue, total hip replacement/resection: Femoral head with degenerative osteoarthritic changes. MAHNAZ:bo 10/26/2022 MICROSCOPIC DESCRIPTION Slides are reviewed. GROSS DESCRIPTION Received is one container labeled with the patient's name and designated left hip bone and tissue. The specimen consists of a de la rosa femoral head with portion of femoral neck. The femoral head measures 4.5 x 4.5 x 4.0 cm and portion of femoral neck measures 2.0 cm in length. The articular surface displays prominent osteophyte formation and bone erosion. Also present in the specimen container are multiple irregular fragments of bone reamings measuring in aggregate 5.5 x 5.0 x 1.0 cm. Forging Press Operator sections are submitted in two cassettes after decalcification as follows: 1 - bone reamings, 2 - bone. / MAHNAZ:bo 10/21/2022 TC:5 CPT: 53112, 79003
[2022-10-21] MEDS: Cefazolin 2 GM in 0.9% Normal Saline 100 ML IV (08:12)
--- NOTE | 2022-10-21 09:22 | PCM.OPRPT ---
Report of Operation Date of Procedure: 10/21/22 Pre-Operative Diagnosis: OA left hip Post-Operative Diagnosis: same Surgery/Procedure Performed:: Left THR Description of Surgical Findings:: Report of Operation Date of Procedure: 10/21/2022 Pre-Operative Diagnosis: OA [ left ] hip Post-Operative Diagnosis: same Surgery/Procedure Performed: [ Left ] THR modern and contemporary art curator: Jonathan Powell PA-C Type of Anesthesia: General Anesthesiologist: Chang Lamas M.D. Specimen's removed: bone Estimated Blood Loss (mL): 50 cc Implants: Lanse Accolade 2 size 2 stem, 48 mm cup with MDM +0 liner/head Surgical Indications: Patient has severe end-stage osteoarthritic changes in the [left ] hip. They have failed conservative measures including activity modification, anti-inflammatories, use of assistive devices. This to the point where the pain affects their ability to enjoy life and complete activities of daily living without discomfort. Patient has elected to undergo the above procedure Procedure Description: The patient was greeted in the preoperative area the [ left ] hip was marked with surgical marker preoperative antibiotics administered. The patient was then taken to or suite in stable condition. Preoperative tranexamic acid was also utilized. Once the patient was placed in the supine position on the operating room table and once adequate anesthesia was obtained they were then placed in the lateral decubitus position with the surgical hip facing the field. All bony prominences were well-padded. A commercial hip position was utilized. The appropriate extremity was then prepped and draped in usual sterile fashion. Ioban was placed on the skin. Surgical timeout was performed and surgery was commenced. A standard posterior approach to the hip was then performed. Incision was planned and carried out with a #10 blade scalpel. Dissection was then carried length of the incision to the IT band which was split proximally and distally. A Charnley retractor was then placed for soft tissue retraction exposing the piriformis. A standard posterior capsulotomy was performed. Severe eburnation of bone was noted and periarticular osteophytes were identified consistent with severe end-stage osteoarthritis. A femoral neck osteotomy guide was used to patsy the proximal femur. A femoral osteotomy was then created approximately 1 fingerbreadth above the lesser trochanter. This was measured and placed on the back table. Once this was complete acetabular retractors were placed anteriorly and posteriorly. Labrum was then removed from the acetabulum exposing the entire cup of the acetabulum. Sequential reaming was then commenced and the acetabulum was medialized and sequentially widened in order to accommodate appropriate size cup. The acetabular cup was then impacted into position to the appropriate depth referencing approximately [45 degrees ] anteversion and [ 45 degrees ]of inclination. Excellent purchase was obtained. An appropriate size MDM liner was then placed. Attention was then turned to the femoral preparation. The hip was placed in the 90/90 position and a lateralizing box osteotome was utilized. Femoral starting awl was used followed by sequential broaching to the appropriate size. Excellent purchase was obtained with the stem no stem subsidence and excellent rotational stability was confirmed. A calcar reamer was then used in the trial head neck was placed on the broach. The hip was then located and taken through full range of motion flexion internal and external rotation as well as extension. Excellent stability was noted no impingement was identified of the components and leg lengths appear to be appropriate. The hip was at this point dislocated and the trial femoral components were removed. The final femoral stem was then implanted and impacted to the appropriate depth. Again excellent purchase was obtained no stem subsidence or rotational instability was noted. The hip was once again trialed and confirmation of leg length and stability was performed. Soft tissue tension also appeared to be appropriate. At this point the hip was redislocated and the trunnion was cleaned and dried meticulously in the appropriate size MDM femoral head was placed on the clean dry trunnion using a 12/14 Wiley taper. The hip was once again relocated and again taken through full range of motion. I did inject a cocktail of postoperative pain medication in the deep and superficial tissues. Copious irrigation was performed. Anatomic closure of the piriformis tendon was performed through drill holes in the greater trochanter. A #1 Vicryl 0 Vicryl was utilized in subcutaneous tissue and surgical bharati were placed in the skin. A well-padded nonadherent dressing was applied. Patient was taken to PACU in stable condition. No complications were identified. Will follow standard postop protocol for total hip arthroplasty. My resident programs assistant played a vital role in the procedure beginning with positioning, holding retraction of soft tissues, positioning the leg to optimize visualization during the procedure and assisting with wound closure. Post-op Plan: DVT ppx; ASA 81 mg BID, thigh high compression stockings Follow up: in office in 2 weeks for wound check PT: to start POD #0 at hospital, outpatient PT should be arranged. Preoperative antibiotic: Ancef 2 grams IV Konstantin Weston DO Surgeon: Konstantin Weston modern and contemporary art curator: Jonathan Powell Type of Anesthesia: General Anesthesiologist: Chang Lamas Specimen's removed: femoral head and neck Estimated Blood Loss (mL): 50 cc Fluids Replaced: 1000 crystalloid Admit VTE Documentation VTE Present on Admission: No VTE Mechan Device Prophylaxis: SCD's and Thigh High LLOYD Hose VTE Pharm Prophylaxis ordered?: Yes
[2022-10-21] MEDS: Lactated Ringers 1,000 ML 125 ML IV ×2 (09:45→18:16)
--- NOTE | 2022-10-21 10:05 | RAD_ITS ---
INDICATION: Post Op -- AP both hips on single dolly/lateral of op hip PACU EXAMINATION/TECHNIQUE: X-RAY - XR Hip Unilateral with Pelvis when performed; 2-3 Views COMPARISON: August 22, 2021 FINDINGS: PELVIC BONES: No displaced fracture, destructive or sclerotic lesions. Note that overlapping bowel shadows may however obscure fine detail. There are degenerative changes of the sacroiliac joint. There are healing left superior and inferior pubic rami fractures. HIPS: There are degenerative changes of the right hip. There is a left total hip arthroplasty in place, grossly anatomic in alignment. SOFT TISSUES: There are vascular calcifications. There are postsurgical changes within the soft tissues lateral to the left hip. RAD/Hip Min 2 Views (Portable) IMPRESSION: Left hip arthroplasty, grossly anatomic in alignment. Degenerative changes. Electronically Signed: Hetal Severino MD at 10:21 EST ,
[2022-10-21 10:40] LABS: Bedside Glucose 204 mg/dL (74-106)
[2022-10-21] MEDS: Cefazolin 1 GM/50 ML BAG IV ×2 (15:44→22:18)
[2022-10-21] MEDS: Gemfibrozil 600 MG Tablet PO (18:23)
[2022-10-21] MEDS: metFORMIN HCl 500 MG Tablet 2000 MG PO (18:24)
[2022-10-21] MEDS: Senna/Docusate Sodium 1 Tablet 2 TABLET PO (18:29)
[2022-10-21] MEDS: Pantoprazole Sodium 20 MG Tablet 40 MG PO (18:30)
[2022-10-21] MEDS: Atorvastatin Calcium 40 MG Tablet PO (18:30)
[2022-10-21 19:20] LABS: Bedside Glucose 308 mg/dL (74-106)
[2022-10-21] MEDS: Enoxaparin 60 MG/0.6 ML Syringe SC (22:19)
[2022-10-21] MEDS: DiphenhydrAMINE 25 MG Capsule 50 MG PO (22:25)
[2022-10-21] MEDS: Insulin Glargine-YFGN 100 UNIT/ML Pen 40 UNIT SC (22:37)
[2022-10-21 23:20] LABS: Bedside Glucose 154 mg/dL (74-106)
[2022-10-22] VITALS (10 sets, daily range): BP systolic 108–142; BP diastolic 39–88; PULSE 60–99; RESP 16–18; TEMP 36.8–37.4; O2SAT 94–100
[2022-10-22] MEDS: oxyCODONE 5 MG Tablet PO ×5 (00:35→17:53)
[2022-10-22] MEDS: Lactated Ringers 1,000 ML 125 ML IV ×2 (00:37→09:56)
[2022-10-22] MEDS: Acetaminophen 500 MG Tablet 1000 MG PO ×3 (04:47→20:53)
[2022-10-22] MEDS: Gemfibrozil 600 MG Tablet PO ×2 (04:48→17:21)
[2022-10-22 06:07] LABS: Hematocrit 21.9 % (37-47); Hemoglobin 7.1 g/dL (12.0-15.0); Mean Corp Hgb Conc 32.4 g/dL (32-36); Mean Corpuscular Hgb 30.5 pg (27.0-32.0); Mean Platelet Vol. 10.3 fl (6.2-12.0); Platelet Count 203 K/mm3 (150-450); RBC Distribution Width CV 13.9 % (11.6-14.6); RBC Distribution Width SD 46.6 fl (35.1-43.9); Red Blood Count 2.33 M/mm3 (4.2-5.4); White Blood Count 6.7 K/mm3 (4.4-11.0)
[2022-10-22 06:41] LABS: Anion Gap 8 (5-15); BUN 21 mg/dL (7-18); Calcium,Total 8.1 mg/dL (8.5-10.1); Chloride 104 mmol/L (98-107); Creatinine, Serum 0.54 mg/dL (0.55-1.02); EST Glomerular Filtration Rate 117 mL/min (>60); Est Glom Filt Rate - Afr Amer 142 mL/min (>60); Estimated Creatinine Clearance 39.04 ml/min; Glucose 152 mg/dL (74-106); Potassium 3.9 mmol/L (3.5-5.1); Sodium Level 137 mmol/L (136-145)
[2022-10-22 07:21] LABS: Absolute Lymphocyte Count 0.72 X10^3/uL (0.83-4.51); Basophil# 0.02 X10^3/uL; Basophil% 0.3 % (0-1); Eosinophil# 0.02 X10^3/uL; Eosinophils% 0.3 % (0-5); Hematocrit 20.7 % (37-47); Hemoglobin 6.6 g/dL (12.0-15.0); Lymphocyte # 0.72 X10^3/ul (0.83-4.51); Lymphocyte % 11.1 % (19-41); Mean Corp Hgb Conc 31.9 g/dL (32-36); Mean Corpuscular Hgb 30.1 pg (27.0-32.0); Mean Corpuscular Volume 94.5 fL (81-99); Mean Platelet Vol. 10.4 fl (6.2-12.0); Monocyte# 0.65 X10^3/uL; NRBC Flagged by Analyzer 0 % (0-5); Neutrophil # 5.04 X10^3/uL (2.7-7.7); Neutrophil % 77.5 % (47-70); Platelet Count 203 K/mm3 (150-450); RBC Distribution Width CV 13.7 % (11.6-14.6); RBC Distribution Width SD 46.5 fl (35.1-43.9); Red Blood Count 2.19 M/mm3 (4.2-5.4); White Blood Count 6.5 K/mm3 (4.4-11.0)
[2022-10-22 07:26] LABS: International Normalized Ratio 1.2; Prothrombin Time (Protime)PT. 14.8 SECONDS (11.7-14.9)
[2022-10-22 07:27] LABS: Partial Thromboplast Time 34.1 Seconds (24.1-36.2)
--- NOTE | 2022-10-22 07:40 | PN.ORTHO_ITS ---
Subjective Subjective Patient sitting up in bed, states has pain in her left hip. She also feels she is lightheaded when standing. She reports she has been ambulating. Denies chest pain, shortness of breath, calf pain, nausea vomiting. Objective Data Objective Data Vital Signs: Vital Signs Temp Pulse Resp BP Pulse Ox O2 Del Method O2 Flow Rate 98.2 F 60 18 108/52 L 96 Room Air 4 10/22/22 02:00 10/22/22 02:00 10/22/22 02:00 10/22/22 02:00 10/22/22 02:00 10/22/22 02:00 10/21/22 11:35 Oxygen Flow Rate (L/min) 4 Oxygen Delivery Method Room Air Weight: 73.482 kg Body Mass Index (BMI) 29.6 Intake & Output: Intake and Output for Last 24 Hours 10/20/22 10/21/22 10/22/22 23:59 23:59 23:59 Intake Total 2314 / 2314 1585.42 / 1585.42 Balance 2314 / 2314 1585.42 / 1585.42 Lab / Micro Data Result Diagrams: 10/22/22 06:58 10/22/22 05:40 Labs: Laboratory Results - last 24 hr 10/21/22 10:20: POC Glucose 204 H 10/21/22 18:20: POC Glucose 308 H 10/21/22 22:37: POC Glucose 154 H 10/22/22 05:40: WBC 6.7, RBC 2.33 L, Hgb 7.1 L, Hct 21.9 L, MCV 94.0, MCH 30.5, MCHC 32.4, RDW Std Deviation 46.6 H, RDW Coeff of Tk 13.9, Plt Count 203, MPV 10.3 10/22/22 05:40: Sodium 137, Potassium 3.9, Chloride 104, Carbon Dioxide 25.0, Anion Gap 8, BUN 21 H, Creatinine 0.54 L, Estim Creat Clear Calc 39.04, Est GFR (MDRD) Af Amer 142, Est GFR (MDRD) Non-Af 117, BUN/Creatinine Ratio 39.0 H, Glucose 152 H, Calcium 8.1 L 10/22/22 05:40: PT 14.8, INR 1.2, APTT 34.1 10/22/22 06:58: Crossmatch See Detail 10/22/22 06:58: WBC 6.5, RBC 2.19 L, Hgb 6.6 L, Hct 20.7 L, MCV 94.5, MCH 30.1, MCHC 31.9 L, RDW Std Deviation 46.5 H, RDW Coeff of Tk 13.7, Plt Count 203, MPV 10.4, Immature Gran % (Auto) 0.800, Neut % (Auto) 77.5 H, Lymph % (Auto) 11.1 L, [place] % (Auto) 10.0, Eos % (Auto) 0.3, Baso % (Auto) 0.3, Absolute Neuts (auto) 5.0, Absolute Lymphs (auto) 0.72 L, Nucleated RBC % 0 Micro: Microbiology 10/16/22 13:58 Swab (Method) Nasal Screen MRSA/MSSA - Final Radiography Diagnostic Testing: Radiology Impression Hip X-Ray 10/21/22 10:05 IMPRESSION: Left hip arthroplasty, grossly anatomic in alignment. Degenerative changes. Electronically Signed: Hetal Severino MD at 10:21 EST , Physical Exam Narrative Exam I found patient sitting up in bed alert oriented. Patient in no respiratory distress speaking in full sentences. Patient has good motion of the upper extremities without limitations. Exam of the left hip, I found the dressing to be clean dry intact and not blood soaked. Patient does have tenderness palpation surrounding the incisional area. There is no significant swelling appreciated, or ecchymosis. She does have good motion of the hip with pain. Good flexion extension of the bilateral knees and ankles and feet. There is no calf tenderness. Neurovascular she is otherwise intact. Const alert and oriented x3 General Appearance: cooperative and well developed HEENT normocephalic Eyes PERRL Lymph Lymphatic: no lymphadenopathy noted Resp normal respiratory effort and no use of accessory muscles Effort and Inspection: able to speak in complete sentences Cardio regular rate Extremity normal capillary refill Skin no rashes or lesions noted Neuro CN's II-XII intact bilaterally Motor Exam: strength 5/5 throughout and muscle tone normal throughout Psych mental status grossly normal and affect normal Assessment & Plan Assessment/Plan (1) S/P total left hip arthroplasty: PLAN: Plan Status post left total hip Postop anemia 1. Continue all pain medications as prescribed 2. Continue anticoagulation as prescribed 3. Encourage incentive spirometry 4. Consult medicine 5. Patient received 2 units of packed red blood cells with Lasix between units per Dr. Weston 6. After transfusion continue physical therapy.
[2022-10-22 07:48] LABS: AST(SGOT) 25 U/L (15-37); Alanine Aminotransfer ALT/SGPT 15 U/L (13-56); Albumin, Serum 2.5 g/dL (3.2-5.0); Alkaline Phosphatase 56 U/L (45-117); Bilirubin, Direct 0.08 mg/dL (0.00-0.30); Ferritin 47 ng/mL (8-252); Globulin 2.3 g/dL (2.2-4.2); Protein, Total 4.8 g/dL (6.4-8.2)
[2022-10-22 08:07] LABS: Iron 25 ug/dL (50-170); Iron Binding Capacity,Total 284 ug/dL (250-450); PERCENT IRON SATURATION 8.8 % (15.0-55.0)
[2022-10-22 08:22] LABS: Vitamin B12 181 pg/mL (211-911)
[2022-10-22] MEDS: metFORMIN HCl 500 MG Tablet 2000 MG PO (09:58)
[2022-10-22] MEDS: Senna/Docusate Sodium 1 Tablet 2 TABLET PO ×2 (09:59→20:52)
[2022-10-22] MEDS: Atenolol 50 MG Tablet PO (10:00)
[2022-10-22] MEDS: Lisinopril 20 MG Tablet 40 MG PO (10:00)
[2022-10-22] MEDS: Cholecalciferol (VIT D3) 25 MCG TABLET (1,000 UNITS) 50 MCG PO (10:01)
[2022-10-22 10:35] LABS: Bedside Glucose 158 mg/dL (74-106)
--- NOTE | 2022-10-22 11:05 | PN_ITS ---
Subjective Subjective Patient is a 72-year-old female with extensive past medical history as outlined who was admitted to the service of orthopedics for left hip arthroplasty on account of left hip osteoarthritis. Hospitalist service was consulted on 10/22/2022 on account of anemia. Patient seen and examined. She complains of pain in the left hip. She denied any palpitations, dizziness, chest pain, nausea or vomiting or any dark stools. She does not remember if she has anemia and says she had a colonoscopy a few years ago and was told that there were no significant findings. She does not know her hemoglobin before she had surgery. From the records, estimated blood loss was only 50 cc during surgery. Hemoglobin this morning was 7.1 and subsequently dropped to 6.6 so patient is to be transfused with a unit of blood today. Hospitalist service consulted for management of anemia. Objective Data Objective Data Vital Signs: Vital Signs Temp Pulse Resp BP Pulse Ox O2 Del Method O2 Flow Rate 98.5 F 82 18 112/39 L 95 Room Air 4 10/22/22 09:42 10/22/22 09:42 10/22/22 09:42 10/22/22 09:42 10/22/22 09:42 10/22/22 09:42 10/21/22 11:35 Oxygen Flow Rate (L/min) 4 Oxygen Delivery Method Room Air Weight: 162 lb Body Mass Index (BMI) 29.6 Intake & Output: Intake and Output for Last 24 Hours 10/20/22 10/21/22 10/22/22 23:59 23:59 23:59 Intake Total 2314 / 2314 1630.17 / 1630.17 Balance 2314 / 2314 1630.17 / 1630.17 Lab / Micro Data Result Diagrams: 10/22/22 06:58 10/22/22 05:40 Labs: Laboratory Results - last 24 hr 10/21/22 18:20: POC Glucose 308 H 10/21/22 22:37: POC Glucose 154 H 10/22/22 05:40: WBC 6.7, RBC 2.33 L, Hgb 7.1 L, Hct 21.9 L, MCV 94.0, MCH 30.5, MCHC 32.4, RDW Std Deviation 46.6 H, RDW Coeff of Tk 13.9, Plt Count 203, MPV 10.3 10/22/22 05:40: Sodium 137, Potassium 3.9, Chloride 104, Carbon Dioxide 25.0, Anion Gap 8, BUN 21 H, Creatinine 0.54 L, Estim Creat Clear Calc 39.04, Est GFR (MDRD) Af Amer 142, Est GFR (MDRD) Non-Af 117, BUN/Creatinine Ratio 39.0 H, Glucose 152 H, Calcium 8.1 L 10/22/22 05:40: Iron 25 L, TIBC 284, Iron Saturation 8.8 L, Folate 12.50 10/22/22 05:40: Ferritin 47, Total Bilirubin 0.60, Direct Bilirubin 0.08, AST 25, ALT 15, Alkaline Phosphatase 56, Total Protein 4.8 L, Albumin 2.5 L, Globulin 2.3 10/22/22 05:40: PT 14.8, INR 1.2, APTT 34.1 10/22/22 06:58: Blood Type AB POSITIVE, Antibody Screen NEGATIVE, Crossmatch See Detail 10/22/22 06:58: WBC 6.5, RBC 2.19 L, Hgb 6.6 L, Hct 20.7 L, MCV 94.5, MCH 30.1, MCHC 31.9 L, RDW Std Deviation 46.5 H, RDW Coeff of Tk 13.7, Plt Count 203, MPV 10.4, Immature Gran % (Auto) 0.800, Neut % (Auto) 77.5 H, Lymph % (Auto) 11.1 L, [place] % (Auto) 10.0, Eos % (Auto) 0.3, Baso % (Auto) 0.3, Absolute Neuts (auto) 5.0, Absolute Lymphs (auto) 0.72 L, Nucleated RBC % 0 10/22/22 06:58: Vitamin B12 181 L 10/22/22 10:12: POC Glucose 158 H Micro: Microbiology 10/16/22 13:58 Swab (Method) Nasal Screen MRSA/MSSA - Final Physical Exam Const alert, oriented x3 and no apparent distress General Appearance: cooperative HEENT normocephalic, head/scalp atraumatic and moist oral mucous membranes Eyes PERRL and EOMs intact bilaterally Neck no lymphadenopathy and supple Lymph Lymphatic: no lymphadenopathy noted and no lymphedema noted Resp normal respiratory effort, normal air movement and clear to auscultation bilaterally Cardio regular rate, regular rhythm, S1 normal heart sound, S2 normal heart sound and no murmurs GI normal to inspection, nondistended, normoactive bowel sounds, soft to palpation, non-tender and non-distended Extremity normal capillary refill Extremity Narrative: intact dressing over leftp Skin General Skin Exam: no breakdown Neuro CN's II-XII intact bilaterally, no focal motor deficits and no sensory deficits noted Motor Exam: strength 5/5 throughout Psych thought process normal Assessment & Plan Assessment/Plan (1) S/P total left hip arthroplasty: (2) Anemia: PLAN: Plan #Acute post op anemia * records from orthopedic surgeon's office showed her Hb was ~ 13.6 on 09/17/2022. THere were no other pre-op labs prior to surgery * hb yesterday after surgery was 7.1. is down to 6.6 this morning * Patient is on Coumadin with bridging of Lovenox on account of mechanical aortic valve. INR slight 1.6. * Old Coumadin and Lovenox. Started on IV pantoprazole 40 mg twice daily. Estimated blood loss from the surgery was only 50 cc * will check stool for occult blood and iron panel. * place on heparin drip due to mechanical mitral valve * transfuse with 2 u nits of PRBCs * #Left hip osteoarthritis s/p left total hip replacement. * Today's postop day 1. Management as per orthopedic surgery * incentive spirometry * PT/OT on board. fall precautions * pain meds as per primary team orthopedics * History of mechanical mitral valve valve replacement: * This was in 2001. Coumadin with Lovenox bridge on hold on account of anemia * Will start on heparin drip now * #Paroxysmal A-fib: On atenolol #Benign essential hypertension: On atenolol and lisinopril #Aortic stenosis s/p TAVR #Type 2 diabetes mellitus: On metformin and Lantus. Insulin sliding scale. Accu-Cheks ACHS. DVT prophylaxis: Started on heparin drip Charges/Coding Visit Charges Inpatient E&M: 64110 Subs Hosp L3
--- NOTE | 2022-10-22 12:15 | CASEMGMT ---
Addendum entered by Sahara Flowers 10/22/22 13:20: [facility], left message with PT cancelling pt appt for tomorrow and made aware pt will call to reschedule. Original Note: KONG PALACIO Assessment: Face to Face with pt for initial transition planning/care coordination assessment. KONG PALACIO introduced self and role at [facility], pt voices understanding and consents to assessment. Pt is A/O x4 and answers all questions appropriately at this time. Pt lying in bed receiving blood in no distress. Care providers, pharmacy, and demographics verified/updated. Admitting Dx: L Total Hip PCP:Joann Specialists:Enrico, ortho; [place], cardio Preferred Pharmacy: [facility] Insurance: [employer] [facility] Prescription Benefit: yes LNOK: Ni Higgins dtr Living Arrangements: Pt lives alone in two story home but only uses the main level. Pt has 4 steps to enter with a rail. Pt reports she was I in ADL's prior to hospitalization. Pt denies concerns at home. Transportation: Pt drives self and denies concerns with transportation. Pt cousin will stay with pt as long as needed and will provide transportation to therapy appts. DME/HHC/SNF: Pt has a standard walker, w/c and crutches at home but does not typically use AD. Pt has had HHC in the past but does not know the name of the agency. Pt denies SNF stays. Pt states no concerns with going home at time of dc. Pt reports having outpt therapy set up at [facility] for tomorrow. She requests KONG PALACIO to call and cancel. She states she will call to reschedule herself. Pt reports she has lovenox and administers to herself and denies concerns with this. Pt states no further concerns/needs. CM to follow. Advised pt to ask CM if any further question/concerns/needs arise, voices understanding. Pt Goal: Home with outpt therapy to set up post hospitalization Plan:Home with cousing assistance and outpt therapy
[2022-10-22] MEDS: Furosemide 20 MG/2 ML VIAL IV (14:25)
[2022-10-22] MEDS: 0.9% Saline Lock 10 ML Syringe IV ×3 (14:30→17:41)
[2022-10-22 16:55] LABS: Bedside Glucose 140 mg/dL (74-106)
[2022-10-22 19:05] LABS: Absolute Lymphocyte Count 0.73 X10^3/uL (0.83-4.51); Basophil# 0.03 X10^3/uL; Basophil% 0.4 % (0-1); Eosinophil# 0.01 X10^3/uL; Eosinophils% 0.1 % (0-5); Hematocrit 28.3 % (37-47); Hemoglobin 9.6 g/dL (12.0-15.0); Lymphocyte # 0.73 X10^3/ul (0.83-4.51); Lymphocyte % 9.5 % (19-41); Mean Corp Hgb Conc 33.9 g/dL (32-36); Mean Corpuscular Hgb 30.7 pg (27.0-32.0); Mean Corpuscular Volume 90.4 fL (81-99); Mean Platelet Vol. 10.3 fl (6.2-12.0); Monocyte# 0.94 X10^3/uL; Monocyte% 12.2 % (0-10); NRBC Flagged by Analyzer 0 % (0-5); Neutrophil # 5.97 X10^3/uL (2.7-7.7); Neutrophil % 77.3 % (47-70); Platelet Count 176 K/mm3 (150-450); RBC Distribution Width CV 13.9 % (11.6-14.6); Red Blood Count 3.13 M/mm3 (4.2-5.4); White Blood Count 7.7 K/mm3 (4.4-11.0)
[2022-10-22] MEDS: Insulin Glargine-YFGN 100 UNIT/ML Pen 40 UNIT SC (20:51)
[2022-10-22] MEDS: Pantoprazole Sodium 20 MG Tablet 40 MG PO (20:53)
[2022-10-22] MEDS: Atorvastatin Calcium 40 MG Tablet PO (20:54)
[2022-10-22] MEDS: DiphenhydrAMINE 25 MG Capsule 50 MG PO (20:55)
[2022-10-22 21:15] LABS: Bedside Glucose 215 mg/dL (74-106)
[2022-10-22] MEDS: Enoxaparin 60 MG/0.6 ML Syringe SC (22:31)
[2022-10-23] MEDS: oxyCODONE 5 MG Tablet PO ×4 (02:43→22:38)
[2022-10-23 02:51] VITALS: BP 124/58; PULSE 105; RESP 16; TEMP 37.4; O2SAT 94
[2022-10-23] MEDS: Acetaminophen 500 MG Tablet 1000 MG PO ×3 (05:22→22:50)
[2022-10-23] MEDS: Gemfibrozil 600 MG Tablet PO ×2 (05:24→16:15)
[2022-10-23 06:17] LABS: Absolute Lymphocyte Count 0.64 X10^3/uL (0.83-4.51); Absolute Neutrophil Count 5.1 X10^3/uL (2.0-7.7); Basophil# 0.02 X10^3/uL; Basophil% 0.3 % (0-1); Eosinophil# 0.02 X10^3/uL; Eosinophils% 0.3 % (0-5); Hematocrit 24.1 % (37-47); Hemoglobin 8.2 g/dL (12.0-15.0); Lymphocyte # 0.64 X10^3/ul (0.83-4.51); Lymphocyte % 9.6 % (19-41); Mean Corpuscular Hgb 30.5 pg (27.0-32.0); Mean Corpuscular Volume 89.6 fL (81-99); Mean Platelet Vol. 10.8 fl (6.2-12.0); NRBC Flagged by Analyzer 0 % (0-5); Neutrophil % 76.7 % (47-70); Platelet Count 169 K/mm3 (150-450); RBC Distribution Width CV 14.2 % (11.6-14.6); RBC Distribution Width SD 45.5 fl (35.1-43.9); Red Blood Count 2.69 M/mm3 (4.2-5.4); White Blood Count 6.7 K/mm3 (4.4-11.0)
[2022-10-23 06:55] LABS: Anion Gap 8 (5-15); BUN 20 mg/dL (7-18); BUN/Creat Ratio 37.5 RATIO (10-20); Calcium,Total 8.8 mg/dL (8.5-10.1); Chloride 102 mmol/L (98-107); Creatinine, Serum 0.53 mg/dL (0.55-1.02); EST Glomerular Filtration Rate 119 mL/min (>60); Est Glom Filt Rate - Afr Amer 144 mL/min (>60); Estimated Creatinine Clearance 39.04 ml/min; Glucose 194 mg/dL (74-106); Potassium 3.7 mmol/L (3.5-5.1); Sodium Level 137 mmol/L (136-145)
[2022-10-23 08:31] VITALS: O2SAT 93
[2022-10-23 09:09] VITALS: BP 104/43; PULSE 97; RESP 18; TEMP 36.6; O2SAT 99
--- NOTE | 2022-10-23 09:12 | PN.ORTHO_ITS ---
Subjective Subjective Patient sitting in bedside eating breakfast. Patient states her hip is still sore. She denies chest pain, shortness of breath, calf pain, nausea vomiting. Patient denies any lightheadedness when standing. No other complaints at this time. Patient states she is ready to be discharged home. She is per her PCP a nd anticoagulation management physician is to continue her Coumadin and Lovenox as instructed. She patient states she does have a follow-up appointment at the [facility] on for recheck of her anticoagulation. Objective Data Objective Data Vital Signs: Vital Signs Temp Pulse Resp BP Pulse Ox O2 Del Method O2 Flow Rate 98 F 97 18 104/43 L 99 Room Air 4 10/23/22 09:09 10/23/22 09:09 10/23/22 09:09 10/23/22 09:09 10/23/22 09:09 10/23/22 09:09 10/21/22 11:35 Oxygen Flow Rate (L/min) 4 Oxygen Delivery Method Room Air Weight: 73.482 kg Body Mass Index (BMI) 29.6 Intake & Output: Intake and Output for Last 24 Hours 10/21/22 10/22/22 10/23/22 23:59 23:59 23:59 Intake Total 2314 / 2314 3171.84 / 3171.84 Output Total 1450 / 1450 Balance 2314 / 2314 1721.84 / 1721.84 Lab / Micro Data Result Diagrams: 10/23/22 05:50 10/23/22 05:50 Labs: Laboratory Results - last 24 hr 10/22/22 06:58: Blood Type AB POSITIVE, Antibody Screen NEGATIVE, Crossmatch See Detail 10/22/22 10:12: POC Glucose 158 H 10/22/22 16:31: POC Glucose 140 H 10/22/22 18:50: WBC 7.7, RBC 3.13 L, Hgb 9.6 L, Hct 28.3 L, MCV 90.4, MCH 30.7, MCHC 33.9 D, RDW Std Deviation 45.0 H, RDW Coeff of Tk 13.9, Plt Count 176, MPV 10.3, Immature Gran % (Auto) 0.500, Neut % (Auto) 77.3 H, Lymph % (Auto) 9.5 L, [place] % (Auto) 12.2 H, Eos % (Auto) 0.1, Baso % (Auto) 0.4, Absolute Neuts (auto) 6.0, Absolute Lymphs (auto) 0.73 L, Nucleated RBC % 0 10/22/22 20:50: POC Glucose 215 H 10/23/22 05:50: WBC 6.7, RBC 2.69 L, Hgb 8.2 L, Hct 24.1 L, MCV 89.6, MCH 30.5, MCHC 34.0, RDW Std Deviation 45.5 H, RDW Coeff of Tk 14.2, Plt Count 169, MPV 10.8, Immature Gran % (Auto) 1.100 H, Neut % (Auto) 76.7 H, Lymph % (Auto) 9.6 L , [place] % (Auto) 12.0 H, Eos % (Auto) 0.3, Baso % (Auto) 0.3, Absolute Neuts (auto) 5.1, Absolute Lymphs (auto) 0.64 L, Nucleated RBC % 0 10/23/22 05:50: Sodium 137, Potassium 3.7, Chloride 102, Carbon Dioxide 27.0, Anion Gap 8, BUN 20 H, Creatinine 0.53 L, Estim Creat Clear Calc 39.04, Est GFR (MDRD) Af Amer 144, Est GFR (MDRD) Non-Af 119, BUN/Creatinine Ratio 37.5 H, Glucose 194 H, Calcium 8.8 Micro: Microbiology 10/16/22 13:58 Swab (Method) Nasal Screen MRSA/MSSA - Final Physical Exam Narrative Exam I found patient sitting comfortably at bedside eating breakfast. Alert oriented. No respiratory distress, speaking in full sentences. Patient is full range of motion the upper extremities without limitations. Exam of the left hip I found the dressing to be clean dry intact. Patient has mild tenderness to deep palpation to the musculature of the left hip however there is no noted ecchymosis the area is soft and not firm. She has good flexion-extension of the knee ankle and foot. No calf tenderness neurovascular is otherwise intact. Const alert and oriented x3 General Appearance: cooperative Eyes PERRL Resp normal respiratory effort Effort and Inspection: able to speak in complete sentences Extremity normal capillary refill Neuro CN's II-XII intact bilaterally Motor Exam: strength 5/5 throughout Psych mental status grossly normal and affect normal Assessment & Plan Assessment/Plan (1) S/P total left hip arthroplasty: PLAN: 1. Continue all pain medications as prescribed 2. Continue Coumadin as prescribed preoperatively, as well as Lovenox as prescribed perioperatively for bridging. Patient is scheduled for a recheck of INR at the Coumadin clinic at [facility] 10/29/2022 3. Weight-bear as tolerated with walker 4. Shower 10/25/2022 5. Follow-up as scheduled see pink sheet 6. Discharge home after p.m. therapy
--- NOTE | 2022-10-23 09:17 | DCINST_ITS ---
Discharge Instructions Diet Discharge Diet: No restrictions Activity Discharge Activity: Return to Normal Activity, May Not Drive, May Not Shower and Use Walker May shower in (days): 2 May resume sexual activity in: No Restrictions Ice area for (Minutes): 30 Weight Bearing Status: Weight bearing as tolerated Keep extremity elevated above heart level: Left Leg Dressing / Incision Call your doctor if your incision/area has: Continuous Slow Oozing, Sudden Increased Bleeding, Increased Pain/ Swelling, Increased Redness, Foul Smelling Discharge and Swelling at the incision site Call your doctor if you observe: Fever of 101 or Higher Change Dressing in: leave in place till F/U Remove Dressing in: leave in place till F/U Follow Up Care Please Follow Up With: Jonathan Powell PA-C When: As scheduled Test Results: Test results from this visit will be discussed in further detail at your follow- up appointment, if applicable. Discharge Plan Admission Admit Date/Time: 10/22/22 11:36 Attending Provider: Konstantin Weston Primary Care Provider: Gwen David Consulting Providers: Melida Ledesma Discharge Orders/Prescriptions Prescriptions: No Action atorvastatin 40 mg tablet 40 mg PO QDAY metformin 500 mg tablet 2,000 mg PO DAILY atenolol 50 mg tablet 50 mg PO DAILY gemfibrozil [Lopid] 600 MG tablet 600 mg PO BIDAC acetaminophen 325 MG tablet 650 mg PO Q6H PRN PRN (Reason: FEVER) 0RF diphenhydramine HCl [Benadryl] 25 mg Capsule 50 mg PO QHS cholecalciferol (vitamin D3) [Vitamin D3] 50 mcg (2,000 unit) Capsule 50 mcg PO DAILY Toujeo Max U-300 SoloStar 300 unit/mL (3 mL) Insulin Pen 40 unit SUBCUT QHS lisinopril 20 mg tablet 40 mg PO DAILY warfarin 3 mg tablet 2.5 mg PO warfarin 5 mg tablet 5 mg PO [facility] Protocol: Dose Management Condition: Wednesday Dose/Route: 5 mg Instruction: 1 x 5 mg tablet Condition: Wednesday Dose/Route: 7.5 mg Instruction: 1.5 x 5 mg tablets Condition: Wednesday Dose/Route: 7.5 mg Instruction: 1.5 x 5 mg tablets Condition: Wednesday Dose/Route: 5 mg Instruction: 1 x 5 mg tablet Condition: Dose/Route: 5 mg Instruction: 1 x 5 mg tablet Condition: Wednesday Dose/Route: 5 mg Instruction: 1 x 5 mg tablet Condition: Wednesday Dose/Route: 5 mg Instruction: 1 x 5 mg tablet Protocol Text: Adjustment Start Date: Wednesday08/13/20 INR Value: 2.90 INR Date: 07/31/20 omeprazole 20 mg Tablet,Delayed Release (Dr/Ec) 40 mg PO QHS meclizine 12.5 mg tablet 12.5 mg PO TID PRN (Reason: Dizziness) enoxaparin [Lovenox] 60 mg/0.6 mL syringe 60 mg subcut Q12H Qty: 6 1RF Referrals / Follow Up: Gwen David MD [Primary Care Provider] -
--- NOTE | 2022-10-23 09:19 | DCINST_ITS ---
Discharge Instructions Diet Discharge Diet: No restrictions Activity May shower in (days): 2 May resume sexual activity in: No Restrictions Ice area for (Minutes): 30 Weight Bearing Status: Weight bearing as tolerated Keep extremity elevated above heart level: Left Leg Dressing / Incision Call your doctor if your incision/area has: Continuous Slow Oozing, Sudden Increased Bleeding, Increased Pain/ Swelling, Increased Redness, Foul Smelling Discharge and Swelling at the incision site Call your doctor if you observe: Fever of 101 or Higher Follow Up Care Please Follow Up With: Jonathan Powell PA-C Test Results: Test results from this visit will be discussed in further detail at your follow- up appointment, if applicable. Discharge Plan Admission Admit Date/Time: 10/22/22 11:36 Primary Reason for Your Visit: Left total hip arthroplasty Attending Provider: Konstantin Weston Primary Care Provider: Gwen David Consulting Providers: Melida Ledesma Discharge Orders/Prescriptions Prescriptions: New oxycodone 5 mg Tablet 5 - 10 mg PO Q4H PRN PRN (Reason: Pain Score 4-10) 7 Days Qty: 60 0RF sennosides-docusate sodium [Stool Softener-Stimulant Laxat] 8.6-50 mg Tablet 2 tab PO BID PRN (Reason: constipation) Qty: 14 0RF acetaminophen 500 mg Tablet 1,000 mg PO Q8 30 Days Qty: 180 0RF Continued atorvastatin 40 mg tablet 40 mg PO QDAY metformin 500 mg tablet 2,000 mg PO DAILY atenolol 50 mg tablet 50 mg PO DAILY gemfibrozil [Lopid] 600 MG tablet 600 mg PO BIDAC diphenhydramine HCl [Benadryl] 25 mg Capsule 50 mg PO QHS cholecalciferol (vitamin D3) [Vitamin D3] 50 mcg (2,000 unit) Capsule 50 mcg PO DAILY Toujeo Max U-300 SoloStar 300 unit/mL (3 mL) Insulin Pen 40 unit SUBCUT QHS lisinopril 20 mg tablet 40 mg PO DAILY warfarin 3 mg tablet 2.5 mg PO warfarin 5 mg tablet 5 mg PO [email or web address] Protocol: Dose Management Condition: Wednesday Dose/Route: 5 mg Instruction: 1 x 5 mg tablet Condition: Wednesday Dose/Route: 7.5 mg Instruction: 1.5 x 5 mg tablets Condition: Wednesday Dose/Route: 7.5 mg Instruction: 1.5 x 5 mg tablets Condition: Wednesday Dose/Route: 5 mg Instruction: 1 x 5 mg tablet Condition: Dose/Route: 5 mg Instruction: 1 x 5 mg tablet Condition: Wednesday Dose/Route: 5 mg Instruction: 1 x 5 mg tablet Condition: Wednesday Dose/Route: 5 mg Instruction: 1 x 5 mg tablet Protocol Text: Adjustment Start Date: Wednesday08/13/20 INR Value: 2.90 INR Date: 07/31/20 omeprazole 20 mg Tablet,Delayed Release (Dr/Ec) 40 mg PO QHS meclizine 12.5 mg tablet 12.5 mg PO TID PRN (Reason: Dizziness) enoxaparin [Lovenox] 60 mg/0.6 mL syringe 60 mg subcut Q12H Qty: 6 1RF Discontinued acetaminophen 325 MG tablet 650 mg PO Q6H PRN PRN (Reason: FEVER) 0RF Referrals / Follow Up: Gwen David MD [Primary Care Provider] - Disposition Disposition (needs filled in before D/C Order can be placed): Home, Self Care
[2022-10-23 09:50] VITALS: O2SAT 93
[2022-10-23] MEDS: Cholecalciferol (VIT D3) 25 MCG TABLET (1,000 UNITS) 50 MCG PO (10:27)
[2022-10-23] MEDS: 0.9% Saline Lock 10 ML Syringe IV ×2 (10:27→13:53)
[2022-10-23] MEDS: Senna/Docusate Sodium 1 Tablet 2 TABLET PO ×2 (10:27→22:40)
[2022-10-23] MEDS: metFORMIN HCl 500 MG Tablet 2000 MG PO (10:27)
[2022-10-23] MEDS: Enoxaparin 60 MG/0.6 ML Syringe SC ×2 (10:30→22:39)
--- NOTE | 2022-10-23 10:30 | CASEMGMT ---
Addendum entered by Rachel Lindsay 10/23/22 14:14: [facility] notified to call [facility] floor if precert obtained over the weekend. Pt notified of acceptance to SNF. voiced understanding. Declined for SW to call family, stated would do this for self. Addendum entered by Rachel Lindsay 10/23/22 14:08: [facility] has accepted pt. Precert to be started today. SW updated the pt on acceptance. Original Note: Social Work? SW was provided update from therapy team that pt will need placement at nursing facility. SW called [facility] and spoke to Cari, clinical patient care nursing assistant for MD Weston. SW gave update that pt needs placement and cannot discharge home today. Cari shared intent to give message to MD Weston. SW in to pt rom to begin discharge planing for SNF. SW introduced self and role at the hospital. Pt agreeable to discussing discharge planning. A list of SNF providers including quality and resource use data consistent with the patient?s preferred geographic region, medical needs, and insurance network were provided from the [employer] Guide. Pt reviewed list, informed SW that preference would be [facility], then [facility] as second choice. Pt was adamant that [facility] was not a choice and pt will not go there. [facility] PLAN: [facility], pending acceptance and precert ADRIENNE Cordero?
[2022-10-23] MEDS: Ferrous Sulfate 325 MG Tablet PO ×2 (12:03→16:15)
[2022-10-23 13:51] VITALS: BP 113/57; PULSE 107; RESP 18; TEMP 37.4; O2SAT 96
[2022-10-23] MEDS: Ondansetron 4 MG/2 ML Vial IV (13:52)
--- NOTE | 2022-10-23 14:07 | PN_ITS ---
Subjective Subjective Patient seen and examined. She had no active complaints. Her pain was well controlled. Review of systems is otherwise negative. The orthopedic PA was also in the room during my review. He said plan is for discharge today. She is s/p 2 units of PRBCs. Hb today is 8.2. Objective Data Objective Data Vital Signs: Vital Signs Temp Pulse Resp BP Pulse Ox O2 Del Method O2 Flow Rate 99.3 F H 107 H 18 113/57 L 96 Room Air 4 10/23/22 13:51 10/23/22 13:51 10/23/22 13:51 10/23/22 13:51 10/23/22 13:51 10/23/22 13:51 10/21/22 11:35 Oxygen Flow Rate (L/min) 4 Oxygen Delivery Method Room Air Weight: 162 lb Body Mass Index (BMI) 29.6 Intake & Output: Intake and Output for Last 24 Hours 10/21/22 10/22/22 10/23/22 23:59 23:59 23:59 Intake Total 2314 / 2314 3171.84 / 3171.84 350 / 350 Output Total 1450 / 1450 400 / 400 Balance 2314 / 2314 1721.84 / 1721.84 -50 / -50 Lab / Micro Data Result Diagrams: 10/23/22 05:50 10/23/22 05:50 Labs: Laboratory Results - last 24 hr 10/22/22 06:58: Blood Type AB POSITIVE, Antibody Screen NEGATIVE, Crossmatch See Detail 10/22/22 16:31: POC Glucose 140 H 10/22/22 18:50: WBC 7.7, RBC 3.13 L, Hgb 9.6 L, Hct 28.3 L, MCV 90.4, MCH 30.7, MCHC 33.9 D, RDW Std Deviation 45.0 H, RDW Coeff of Tk 13.9, Plt Count 176, MPV 10.3, Immature Gran % (Auto) 0.500, Neut % (Auto) 77.3 H, Lymph % (Auto) 9.5 L, [place] % (Auto) 12.2 H, Eos % (Auto) 0.1, Baso % (Auto) 0.4, Absolute Neuts (auto) 6.0, Absolute Lymphs (auto) 0.73 L, Nucleated RBC % 0 10/22/22 20:50: POC Glucose 215 H 10/23/22 05:50: WBC 6.7, RBC 2.69 L, Hgb 8.2 L, Hct 24.1 L, MCV 89.6, MCH 30.5, MCHC 34.0, RDW Std Deviation 45.5 H, RDW Coeff of Tk 14.2, Plt Count 169, MPV 10.8, Immature Gran % (Auto) 1.100 H, Neut % (Auto) 76.7 H, Lymph % (Auto) 9.6 L , [place] % (Auto) 12.0 H, Eos % (Auto) 0.3, Baso % (Auto) 0.3, Absolute Neuts (auto) 5.1, Absolute Lymphs (auto) 0.64 L, Nucleated RBC % 0 10/23/22 05:50: Sodium 137, Potassium 3.7, Chloride 102, Carbon Dioxide 27.0, Anion Gap 8, BUN 20 H, Creatinine 0.53 L, Estim Creat Clear Calc 39.04, Est GFR (MDRD) Af Amer 144, Est GFR (MDRD) Non-Af 119, BUN/Creatinine Ratio 37.5 H, Glucose 194 H, Calcium 8.8 Micro: Microbiology 10/16/22 13:58 Swab (Method) Nasal Screen MRSA/MSSA - Final Physical Exam Const alert, oriented x3 and no apparent distress General Appearance: cooperative HEENT normocephalic, head/scalp atraumatic and moist oral mucous membranes Eyes PERRL and EOMs intact bilaterally Neck no lymphadenopathy and supple Lymph Lymphatic: no lymphadenopathy noted and no lymphedema noted Resp normal respiratory effort, normal air movement and clear to auscultation b ilaterally Cardio regular rate, regular rhythm, S1 normal heart sound and S2 normal heart sound Cardio Narrative: mechanical mitral valve click GI normal to inspection, nondistended, normoactive bowel sounds, soft to palpation, non-tender and non-distended Extremity normal capillary refill and no clubbing, cyanosis or edema Extremity Narrative: intact dressing over left hip Skin General Skin Exam: no breakdown Neuro CN's II-XII intact bilaterally, no focal motor deficits and no sensory deficits noted Motor Exam: strength 5/5 throughout Psych thought process normal Appearance: appropriate Assessment & Plan Assessment/Plan (1) S/P total left hip arthroplasty: (2) Anemia: PLAN: Plan #Acute post op anemia likely due to blood loss from surgery * records from orthopedic surgeon's office showed her Hb was ~ 13.6 on 09/17/2022. THere were no other pre-op labs prior to surgery * Her Hb today is 8.2. She is s/p transfusion of 2 units of PRBCs * stable. * likely due to acute blood loss. Her stool for occult blood is negative * her iron panel showed low iron saturation, so patient started on oral iron supplementation * She does tell me that she had EGD and colonoscopy in July 2022 and per her recollection there were no significant findings. Patient would follow-up with a PCP for referral to gastroenterology for further work-up as needed. #Left hip osteoarthritis s/p left total hip replacement. * Today's postop day 2. Management as per orthopedic surgery * incentive spirometry * PT/OT on board. fall precautions * pain meds as per primary team orthopedics * History of mechanical mitral valve valve replacement: * This was in 2001. Coumadin with Lovenox bridge on hold on account of anemia * therapeutic lovenox resumed yesterday; to resume coumadin today * Patient being discharged on therapeutic Lovenox to bridge Coumadin until INR is therapeutic. She says her PCP manages her Coumadin so to follow-up with PCP for monitoring of her INR. She was therapeutic. * #Paroxysmal A-fib: On atenolol #Benign essential hypertension: On atenolol and lisinopril #Aortic stenosis s/p TAVR #Type 2 diabetes mellitus: On metformin and Lantus. Insulin sliding scale. Accu-Cheks ACHS. DVT prophylaxis: On therapeutic Lovenox and Coumadin to be resumed today Disposition: Patient stable for discharge from hospital standpoint. Charges/Coding Visit Charges Inpatient E&M: 19575 Subs Hosp L2
--- NOTE | 2022-10-23 15:49 | NURSING ---
talked with Parker LOOMIS, verified he is aware pt going to [facility] now and will not dc today.
[2022-10-23 21:00] VITALS: BP 124/55; PULSE 95; RESP 16; TEMP 36.9; O2SAT 97
[2022-10-23] MEDS: DiphenhydrAMINE 25 MG Capsule 50 MG PO (22:38)
[2022-10-23] MEDS: Pantoprazole Sodium 20 MG Tablet 40 MG PO (22:40)
[2022-10-23] MEDS: Atorvastatin Calcium 40 MG Tablet PO (22:40)
[2022-10-23] MEDS: Insulin Glargine-YFGN 100 UNIT/ML Pen 40 UNIT SC (22:41)
[2022-10-23 23:11] LABS: Bedside Glucose 180 mg/dL (74-106)
[2022-10-24 03:00] VITALS: BP 112/88; PULSE 96; RESP 20; TEMP 37.1; O2SAT 98
[2022-10-24] MEDS: oxyCODONE 5 MG Tablet PO (05:53)
[2022-10-24] MEDS: Acetaminophen 325 MG Tablet 650 MG PO (05:53)
[2022-10-24] MEDS: Gemfibrozil 600 MG Tablet PO ×2 (05:54→15:59)
[2022-10-24 07:31] LABS: Absolute Lymphocyte Count 0.96 X10^3/uL (0.83-4.51); Absolute Neutrophil Count 6.2 X10^3/uL (2.0-7.7); Basophil# 0.02 X10^3/uL; Basophil% 0.2 % (0-1); Eosinophil# 0.02 X10^3/uL; Eosinophils% 0.2 % (0-5); Hematocrit 21.4 % (37-47); Hemoglobin 7.1 g/dL (12.0-15.0); Lymphocyte # 0.96 X10^3/ul (0.83-4.51); Lymphocyte % 11.8 % (19-41); Mean Corp Hgb Conc 33.2 g/dL (32-36); Mean Corpuscular Volume 93.4 fL (81-99); Mean Platelet Vol. 11.2 fl (6.2-12.0); Monocyte# 0.91 X10^3/uL; Monocyte% 11.1 % (0-10); NRBC Flagged by Analyzer 0 % (0-5); Neutrophil # 6.16 X10^3/uL (2.7-7.7); Neutrophil % 75.5 % (47-70); Platelet Count 204 K/mm3 (150-450); RBC Distribution Width CV 14.6 % (11.6-14.6); RBC Distribution Width SD 50.4 fl (35.1-43.9); Red Blood Count 2.29 M/mm3 (4.2-5.4); White Blood Count 8.2 K/mm3 (4.4-11.0)
[2022-10-24 07:46] LABS: Anion Gap 9 (5-15); BUN 24 mg/dL (7-18); BUN/Creat Ratio 44.4 RATIO (10-20); Chloride 102 mmol/L (98-107); Creatinine, Serum 0.54 mg/dL (0.55-1.02); EST Glomerular Filtration Rate 117 mL/min (>60); Est Glom Filt Rate - Afr Amer 142 mL/min (>60); Estimated Creatinine Clearance 39.04 ml/min; Glucose 204 mg/dL (74-106); Potassium 3.9 mmol/L (3.5-5.1); Sodium Level 137 mmol/L (136-145)
[2022-10-24] MEDS: Enoxaparin 60 MG/0.6 ML Syringe SC ×2 (08:35→21:15)
[2022-10-24] MEDS: Senna/Docusate Sodium 1 Tablet 2 TABLET PO ×2 (08:35→21:13)
[2022-10-24] MEDS: Atenolol 50 MG Tablet PO (08:35)
[2022-10-24] MEDS: Cholecalciferol (VIT D3) 25 MCG TABLET (1,000 UNITS) 50 MCG PO (08:36)
[2022-10-24] MEDS: Lisinopril 20 MG Tablet 40 MG PO (08:36)
[2022-10-24] MEDS: metFORMIN HCl 500 MG Tablet 2000 MG PO (08:37)
[2022-10-24 08:56] VITALS: BP 140/61; PULSE 104; RESP 18; TEMP 36.9; O2SAT 96
--- NOTE | 2022-10-24 09:26 | PN.ORTHO_ITS ---
Subjective Subjective Pt. reports pain as expected around incision. Denies abdominal pain. Denies CP or SOB. Denies paresthesias. Objective Data Objective Data Vital Signs: Vital Signs Temp Pulse Resp BP Pulse Ox O2 Del Method O2 Flow Rate 98.4 F 104 H 18 140/61 H 96 Room Air 4 10/24/22 08:56 10/24/22 08:56 10/24/22 08:56 10/24/22 08:56 10/24/22 08:56 10/24/22 08:56 10/21/22 11:35 Oxygen Flow Rate (L/min) 4 Oxygen Delivery Method Room Air Weight: 162 lb Body Mass Index (BMI) 29.6 Intake & Output: Intake and Output for Last 24 Hours 10/22/22 10/23/22 10/24/22 23:59 23:59 23:59 Intake Total 3171.84 / 3171.84 350 / 350 Output Total 1450 / 1450 400 / 400 400 / 400 Balance 1721.84 / 1721.84 -50 / -50 -400 / -400 Lab / Micro Data Result Diagrams: 10/24/22 05:40 10/24/22 05:40 Labs: Laboratory Results - last 24 hr 10/23/22 22:42: POC Glucose 180 H 10/24/22 05:40: WBC 8.2, RBC 2.29 L, Hgb 7.1 L, Hct 21.4 L, MCV 93.4, MCH 31.0, MCHC 33.2, RDW Std Deviation 50.4 H, RDW Coeff of Tk 14.6, Plt Count 204, MPV 11.2, Immature Gran % (Auto) 1.200 H, Neut % (Auto) 75.5 H, Lymph % (Auto) 11.8 L, [place] % (Auto) 11.1 H, Eos % (Auto) 0.2, Baso % (Auto) 0.2, Absolute Neuts (auto) 6.2, Absolute Lymphs (auto) 0.96, Nucleated RBC % 0 10/24/22 05:40: Sodium 137, Potassium 3.9, Chloride 102, Carbon Dioxide 26.0, Anion Gap 9, BUN 24 H, Creatinine 0.54 L, Estim Creat Clear Calc 39.04, Est GFR (MDRD) Af Amer 142, Est GFR (MDRD) Non-Af 117, BUN/Creatinine Ratio 44.4 H, Glucose 204 H, Calcium 9.0 Micro: Microbiology 10/16/22 13:58 Swab (Method) Nasal Screen MRSA/MSSA - Final Physical Exam Const alert and oriented x3 General Appearance: cooperative Extremity normal capillary refill, no clubbing, cyanosis or edema, no calf tenderness and no pedal edema Extremity Narrative: Incision is well approximated without evidence of infection, hematoma or drainage. Her thigh is soft and compressible. Gentle ROM of the hip is well tolerated. Assessment & Plan Assessment/Plan (1) Anemia: PLAN: Likely post-operative and dilutional. However, the patient was stable during surgery and did not have an inordinate amount of intra-operative blood loss. Discussed case with hospitalist, although the patient's stool was negative for occult blood, we will consult GI. (2) S/P total left hip arthroplasty: PLAN: Continue PT, WBAT Will follow closely
--- NOTE | 2022-10-24 09:54 | PN_ITS ---
Subjective Subjective Patient seen and examined. She complained of pain in her left hip at site of surgery, and rated it at 5/10. She denied any leg lightheadedness or dizziness, palpitations, nausea vomiting or any dark stools. Review of systems otherwise negative. Her hemoglobin is 7.1 today, down from 8.2 yesterday. She is back on her Coumadin being bridged with Lovenox. Objective Data Objective Data Vital Signs: Vital Signs Temp Pulse Resp BP Pulse Ox O2 Del Method O2 Flow Rate 98.4 F 104 H 18 140/61 H 96 Room Air 4 10/24/22 08:56 10/24/22 08:56 10/24/22 08:56 10/24/22 08:56 10/24/22 08:56 10/24/22 08:56 10/21/22 11:35 Oxygen Flow Rate (L/min) 4 Oxygen Delivery Method Room Air Weight: 162 lb Body Mass Index (BMI) 29.6 Intake & Output: Intake and Output for Last 24 Hours 10/22/22 10/23/22 10/24/22 23:59 23:59 23:59 Intake Total 3171.84 / 3171.84 350 / 350 Output Total 1450 / 1450 400 / 400 400 / 400 Balance 1721.84 / 1721.84 -50 / -50 -400 / -400 Lab / Micro Data Result Diagrams: 10/24/22 05:40 10/24/22 05:40 Labs: Laboratory Results - last 24 hr 10/23/22 22:42: POC Glucose 180 H 10/24/22 05:40: WBC 8.2, RBC 2.29 L, Hgb 7.1 L, Hct 21.4 L, MCV 93.4, MCH 31.0, MCHC 33.2, RDW Std Deviation 50.4 H, RDW Coeff of Tk 14.6, Plt Count 204, MPV 11.2, Immature Gran % (Auto) 1.200 H, Neut % (Auto) 75.5 H, Lymph % (Auto) 11.8 L, [place] % (Auto) 11.1 H, Eos % (Auto) 0.2, Baso % (Auto) 0.2, Absolute Neuts (auto) 6.2, Absolute Lymphs (auto) 0.96, Nucleated RBC % 0 10/24/22 05:40: Sodium 137, Potassium 3.9, Chloride 102, Carbon Dioxide 26.0, Anion Gap 9, BUN 24 H, Creatinine 0.54 L, Estim Creat Clear Calc 39.04, Est GFR (MDRD) Af Amer 142, Est GFR (MDRD) Non-Af 117, BUN/Creatinine Ratio 44.4 H, Glucose 204 H, Calcium 9.0 Micro: Microbiology 10/16/22 13:58 Swab (Method) Nasal Screen MRSA/MSSA - Final Physical Exam Const alert, oriented x3 and no apparent distress General Appearance: cooperative HEENT normocephalic, head/scalp atraumatic and moist oral mucous membranes Eyes PERRL and EOMs intact bilaterally Neck no lymphadenopathy and supple Lymph Lymphatic: no lymphadenopathy noted and no lymphedema noted Resp normal respiratory effort, normal air movement and clear to auscultation bilaterally Cardio regular rate, regular rhythm, S1 normal heart sound, S2 normal heart sound and no murmurs Cardio Narrative: mechanical mitral valve click GI normal to inspection, nondistended, normoactive bowel sounds, soft to palpation, non-tender and non-distended Extremity normal capillary refill, no clubbing, cyanosis or edema and no calf tenderness Extremity Narrative: intact dressing over left hip Skin Skin Narrative: intact dressing over left hip General Skin Exam: no breakdown Neuro CN's II-XII intact bilaterally, no focal motor deficits and no sensory deficits noted Motor Exam: strength 5/5 throughout Psych thought process normal Appearance: appropriate Assessment & Plan Assessment/Plan (1) S/P total left hip arthroplasty: (2) Anemia: PLAN: Plan #Acute post op anemia * was initially thought to be due to blood loss during surgery. However, blood loss seemed to be ~ 50cc only during surgery. * records from orthopedic surgeon's office showed her Hb was ~ 13.6 on 09/17/2022. THere were no other pre-op labs prior to surgery * Hb today is 7.1. Was 8.2 yesterday. * stable. * stool for occult blood was negative. * her iron panel showed low iron saturation, so patient started on oral iron supplementation * She does tell me that she had EGD and colonoscopy in July 2022 and per her recollection there were no significant findings. Patient would follow-up with a PCP for referral to gastroenterology for further work-up as needed. * in light of her persistent anemia, I think it is prudent to consult gastroenterology, especially as she is also on blood thinners. * transfuse if Hb <7 #Left hip osteoarthritis s/p left total hip replacement. * Today's postop day 3. Management as per orthopedic surgery * incentive spirometry * PT/OT on board. fall precautions * pain meds as per primary team orthopedics * History of mechanical mitral valve valve replacement: * This was in 2001. Coumadin with Lovenox bridge on hold on account of anemia * on lovenox for bridging coumadin. * hold coumadin and lovenox in light of persistent anemia. * #Paroxysmal A-fib: On atenolol #Benign essential hypertension: On atenolol and lisinopril #Aortic stenosis s/p TAVR #Type 2 diabetes mellitus: On metformin and Lantus. Insulin sliding scale. Accu-Cheks ACHS. DVT prophylaxis: SCDs Disposition: for placement once medically stable. Charges/Coding Visit Charges Inpatient E&M: 45483 Subs Hosp L2
[2022-10-24 11:15] LABS: International Normalized Ratio 1.7; Prothrombin Time (Protime)PT. 19.3 SECONDS (11.7-14.9)
[2022-10-24] MEDS: Acetaminophen 500 MG Tablet 1000 MG PO ×2 (13:40→21:13)
[2022-10-24] MEDS: Ferrous Sulfate 325 MG Tablet PO ×2 (13:40→18:02)
--- NOTE | 2022-10-24 14:17 | EX.PCM.CON.G ---
HPI Consult Data Date of Consult: 10/24/22 HPI Narrative Reason for Consultation: Anemia HPI Narrative: MACIEL BUCIO, is a 72 F who was admitted to the service of orthopedics for left hip arthroplasty on account of left hip osteoarthritis.? Hospitalist service was consulted on 10/22/2022 on account of anemia.? Patient seen and examined.? She complains of pain in the left hip.? she has a past medical history of mitral valve disease status post mitral valve replacement with a number 31 mm [place] prosthetic mechanical mitral valve apparatus in 2020 at [facility], status post TAVR for aortic valve stenosis on 09-18-2020 at [facility] with a 23 mm Fredrick S3 valve, cardiac ectopy with PACs and PVCs, PAF, PVT, hyperlipidemia, and hypertension. From a cardiac standpoint pt is doing okay.? She does not have any chest pain that is concerning.? She has not needed to use any NTG.? She does not have any worsening SOB.? She does not have any palpitations.? Her biggest issues with with GI.? She has an enlarged gallbladder and a hiatal hernia.? She will be seeing a GI specialist for this in [place]. She does not have any lightheadedness/dizziness. She does not have any edema.? CT scan of the abdomen pelvis on 09/04/2022 : Normal liver.? There are multiple gallstones within an otherwise normal gallbladder.? No biliary ductal dilatation or choledocholithiasis.? Normal spleen.? Normal pancreas. Normal bilateral adrenal glands. Normal right kidney.? Normal left kidney.? Normal visualized ureters. Hiatal hernia.? The distal stomach is unremarkable.? Normal small intestine.? Normal colon.? The appendix is visualized and appears normal She does take warfarin and her INR is 1.7. Her BUN is 24 with a creatinine of 0.4. Her hemoglobin has decreased down from 12.9-7.1. I was consulted for anemia. [facility] Medical History (Updated 10/22/22 @ 11:[address] Melida Ledesma MD) Abnormal electrocardiogram Abrasion Alcohol use Anemia Angina at rest Arthritis Atherosclerotic heart disease of [place] coronary artery without angina pectoris Atrial fibrillation Back pain Bacteremia Blood infection Cardiology follow-up encounter Depression Dietary restriction Dyslipidemia Encounter for long-term current use of high risk medication Essential hypertension Former smoker Gastric reflux High cholesterol History of atrial fibrillation History of echocardiogram History of hiatal hernia History of irregular heartbeat History of pain when walking History of renal disease History of stress test Hx of fracture of arm Hx of uterine prolapse Hypertension Insulin dependent diabetes mellitus Leg cramps Loss of hearing Mitral valve disorder Murmur, functional Nonrheumatic aortic (valve) stenosis Palpitations Paroxysmal atrial fibrillation Paroxysmal ventricular tachycardia Post-menopausal Premature atrial contraction Premature ventricular contraction Restless legs Shortness of breath on exertion SIRS (systemic inflammatory response syndrome) Type 2 diabetes mellitus Ventricular tachycardia Vertigo Wears glasses Wears partial dentures Home Medications gemfibrozil 600 mg tablet (Lopid) 600 mg PO BIDAC 07/10/13 [History Last Taken 10/20/22] atorvastatin 40 mg tablet 40 mg PO QDAY 12/21/17 [History Last Taken 10/20/22] metformin 500 mg tablet 2,000 mg PO DAILY 02/08/20 [History Last Taken 10/20/22] meclizine 12.5 mg tablet 12.5 mg PO TID PRN Dizziness 09/30/20 [History Last Taken 10/20/22] atenolol 50 mg tablet 50 mg PO DAILY 07/03/21 [History Last Taken 10/21/22 05:30] enoxaparin 60 mg/0.6 mL subcutaneous syringe (Lovenox) 60 mg (0.6 mL) subcut Q12H #6 mL 09/16/22 [Rx Last Taken 10/21/22 05:30] cholecalciferol (vitamin D3) 50 mcg (2,000 unit) capsule (Vitamin D3) 50 mcg PO DAILY 10/14/22 [History Last Taken 10/20/22] diphenhydramine HCl 25 mg capsule (Benadryl) 50 mg PO QHS 10/14/22 [History Last Taken 10/20/22] insulin glargine U-300 conc 300 unit/mL (3 mL) subcutaneous pen (Toujeo Max U-300 SoloStar) 40 unit subcut QHS 10/14/22 [History Last Taken 10/20/22] lisinopril 20 mg tablet 40 mg PO DAILY 10/14/22 [History Last Taken 10/20/22] omeprazole 20 mg tablet,delayed release 40 mg PO QHS 10/14/22 [History Last Taken 10/20/22] warfarin 3 mg tablet 2.5 mg PO MOWEFR 10/14/22 [History Last Taken 10/14/22] warfarin 5 mg tablet 5 mg PO SUTUTHSA 10/14/22 [History Last Taken 10/15/22] acetaminophen 500 mg tablet 1,000 mg PO Q8 30 days #180 tabs 10/23/22 [Rx Last Taken Unknown] ferrous sulfate 325 mg (65 mg iron) tablet (FeroSul) 325 mg PO 1200,1700 #60 tabs 10/23/22 [Rx Last Taken Unknown] oxycodone 5 mg tablet 5 - 10 mg PO Q4H PRN PRN Pain Score 4-10 7 days #60 tabs 10/23/22 [Rx Last Taken Unknown] sennosides 8.6 mg-docusate sodium 50 mg tablet (Stool Softener-Stimulant Laxative) 2 tab PO BID PRN constipation #14 tabs 10/23/22 [Rx Last Taken Unknown] Allergy/AdvReac Type Severity Reaction Status Date / Time Calcium Channel Blocking Allergy Rash Verified 10/21/22 06:29 Agent Dilt [Calcium Channel Blocking Agents-Win] Family History Mother CAD (coronary artery disease) Brother hyperlipidemia Brother Hypertension Father CAD (coronary artery disease) Surgical History (Updated 10/22/22 @ 07:46 by Jonathan LOOMIS, PA-C) Bioprosthetic mitral valve replacement, current hospitalization History of cardiac catheterization History of left heart catheterization (LHC) (~07/19/20) History of mitral valve replacement with mechanical valve (~09/29/01) Hx of colonoscopy Hx of dilation and curettage Hx of inguinal hernia repair Hx of lithotripsy 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) Social History Smoking Status: Former smoker alcohol intake: never substance use type: does not use caffeine: Yes Type: coffee Number of servings: 1 what type of physical activity do you participate in: walking frequency: daily duration: 15-30 minutes/day seatbelt use: always do you feel safe at home: Yes ROS Review of Systems ROS Unobtainable: other Constitutional Constitutional: Denies fatigue, fever(s), poor appetite, weight gain or weight loss ENT HEENT: Denies mouth lesions Cardiovascular Cardiovascular: Denies abdominal bloating, abdominal edema or abdominal pain Respiratory/Chest Respiratory/Chest: Denies change in mental status, change in phlegm color, chest congestion or chest tightness Gastrointestinal Gastrointestinal: Denies belching, bloating, change in bowel habits, change in stool character, chewing difficulty, coffee ground emesis, constipation, cramping, diarrhea, dyspepsia, dysphagia, early satiety, excessive flatus, fecal incontinence, heartburn, hematemesis, hematochezia, hemorrhoids, loose stools, melena, nausea, odynophagia, rectal bleeding, tenesmus, vomiting or weight changes Genitourinary Genitourinary: Denies abdominal discomfort, burning urination or itching Musculoskeletal Musculoskeletal: Reports as per HPI; Denies muscle weakness or myalgias Integumentary Integumentary: Denies jaundice Neurologic Neurologic: Denies lack of coordination or weakness Psychiatric Psychiatric: Denies confusion, depression, memory loss, mood swings, paranoia or suicidal ideation Endocrine Endocrinology: Denies systems reviewed and no addt'l complaints, except as documented Hematologic/Lymphatic Hematologic/Lymphatic: Denies anemia, easy bleeding, easy bruising or lymphadenopathy Allergic/Immunologic Allergic/Immunologic: Denies systems reviewed and no addt'l complaints, except as documented Physical Exam Const alert, oriented x3 and no apparent distress General Appearance: cooperative HEENT normocephalic, head/scalp atraumatic and moist oral mucous membranes Eyes PERRL and EOMs intact bilaterally Neck no lymphadenopathy and supple Lymph Lymphatic: no lymphadenopathy noted and no lymphedema noted Resp normal respiratory effort, normal air movement and clear to auscultation bilaterally Cardio regular rate, regular rhythm, S1 normal heart sound, S2 normal heart sound and no murmurs Cardio Narrative: mechanical mitral valve click GI normal to inspection, nondistended, normoactive bowel sounds, soft to palpation, non-tender and non-distended Extremity normal capillary refill, no clubbing, cyanosis or edema and no calf tenderness Extremity Narrative: intact dressing over left hip Skin Skin Narrative: intact dressing over left hip General Skin Exam: no breakdown Neuro CN's II-XII intact bilaterally, no focal motor deficits and no sensory deficits noted Motor Exam: strength 5/5 throughout Psych thought process normal Appearance: appropriate Lab / Micro Data Result Diagrams: 10/24/22 05:40 10/24/22 05:40 Labs: Laboratory Results - last 24 hr 10/23/22 22:42: POC Glucose 180 H 10/24/22 05:40: WBC 8.2, RBC 2.29 L, Hgb 7.1 L, Hct 21.4 L, MCV 93.4, MCH 31.0, MCHC 33.2, RDW Std Deviation 50.4 H, RDW Coeff of Tk 14.6, Plt Count 204, MPV 11.2, Immature Gran % (Auto) 1.200 H, Neut % (Auto) 75.5 H, Lymph % (Auto) 11.8 L, [place] % (Auto) 11.1 H, Eos % (Auto) 0.2, Baso % (Auto) 0.2, Absolute Neuts (auto) 6.2, Absolute Lymphs (auto) 0.96, Nucleated RBC % 0 10/24/22 05:40: Sodium 137, Potassium 3.9, Chloride 102, Carbon Dioxide 26.0, Anion Gap 9, BUN 24 H, Creatinine 0.54 L, Estim Creat Clear Calc 39.04, Est GFR (MDRD) Af Amer 142, Est GFR (MDRD) Non-Af 117, BUN/Creatinine Ratio 44.4 H, Glucose 204 H, Calcium 9.0 10/24/22 10:30: PT 19.3 H, INR 1.7 Assessment & Plan Assessment/Plan (1) Anemia: PLAN: She should undergo an upper endoscopy and possibly a capsule endoscopy. She recently had a colonoscopy back in July 2022 for screening purposes and there were no abnormalities at that time. I think it is important to find out a source of acute blood loss anemia due to the fact that she has to be on warfarin therapy due to her history of aortic valve replacement. Recommend transfuse to keep hematocrit greater than 35%. The plan is for endoscopy on 10/26/2022. Charges/Coding Visit Charges Inpatient E&M: 03080 Init Hosp L3
[2022-10-24 15:00] VITALS: BP 109/44; PULSE 81; RESP 18; TEMP 37.1; O2SAT 98
[2022-10-24] MEDS: Atorvastatin Calcium 40 MG Tablet PO (21:14)
[2022-10-24] MEDS: Pantoprazole Sodium 20 MG Tablet 40 MG PO (21:15)
[2022-10-24] MEDS: Insulin Glargine-YFGN 100 UNIT/ML Pen 40 UNIT SC (21:16)
[2022-10-24 21:20] VITALS: BP 98/64; PULSE 72; RESP 16; TEMP 37; O2SAT 97
--- NOTE | 2022-10-24 21:20 | NURSING ---
RN in to do hs assessment and pt had removed her gown, lenana hose and scd's. Pt able to answer orientation questions appropriately and couldn't explain why she had taken everything off. RN explained need for her hose/scd's and pt stated I know, I don't know why I took them off. Pt allowed nurse to put them back on. Bed exit on.
[2022-10-24] MEDS: DiphenhydrAMINE 25 MG Capsule 50 MG PO (21:32)
[2022-10-24 21:41] LABS: Bedside Glucose 158 mg/dL (74-106)
[2022-10-25] VITALS (11 sets, daily range): BP systolic 89–113; BP diastolic 39–56; PULSE 78–94; RESP 16–18; TEMP 36.6–37.3; O2SAT 94–99
[2022-10-25] MEDS: Gemfibrozil 600 MG Tablet PO ×2 (06:01→16:59)
[2022-10-25] MEDS: Acetaminophen 500 MG Tablet 1000 MG PO ×3 (06:01→21:44)
[2022-10-25 06:39] LABS: Absolute Lymphocyte Count 0.69 X10^3/uL (0.83-4.51); Absolute Neutrophil Count 5.4 X10^3/uL (2.0-7.7); Basophil# 0.03 X10^3/uL; Basophil% 0.4 % (0-1); Eosinophil# 0.08 X10^3/uL; Eosinophils% 1.1 % (0-5); Hematocrit 18.7 % (37-47); Lymphocyte # 0.69 X10^3/ul (0.83-4.51); Lymphocyte % 9.8 % (19-41); Mean Corpuscular Hgb 29.4 pg (27.0-32.0); Mean Corpuscular Volume 94.9 fL (81-99); Mean Platelet Vol. 10.6 fl (6.2-12.0); Monocyte# 0.72 X10^3/uL; Monocyte% 10.2 % (0-10); NRBC Flagged by Analyzer 0 % (0-5); Neutrophil # 5.43 X10^3/uL (2.7-7.7); Neutrophil % 76.8 % (47-70); POSITIVE COUNT YES; Platelet Count 253 K/mm3 (150-450); RBC Distribution Width CV 14.5 % (11.6-14.6); RBC Distribution Width SD 49.4 fl (35.1-43.9); Red Blood Count 1.97 M/mm3 (4.2-5.4); White Blood Count 7.1 K/mm3 (4.4-11.0)
[2022-10-25 06:50] LABS: Differential Indicated SCAN CRITERIA MET; Hemoglobin 5.8 g/dL (12.0-15.0)
[2022-10-25 07:03] LABS: Differential Comment SCANNED
[2022-10-25 07:05] LABS: Anion Gap 6 (5-15); BUN 37 mg/dL (7-18); BUN/Creat Ratio 43.3 RATIO (10-20); Calcium,Total 8.9 mg/dL (8.5-10.1); Chloride 101 mmol/L (98-107); Creatinine, Serum 0.85 mg/dL (0.55-1.02); EST Glomerular Filtration Rate 69 mL/min (>60); Est Glom Filt Rate - Afr Amer 84 mL/min (>60); Estimated Creatinine Clearance 45.92 ml/min; Glucose 168 mg/dL (74-106); Potassium 3.8 mmol/L (3.5-5.1); Sodium Level 135 mmol/L (136-145)
--- NOTE | 2022-10-25 07:18 | CT_ITS ---
INDICATION: Abdominal pain and fullness, possible retroperitoneal hemorrhage EXAMINATION: CTA abdomen and pelvis - TECHNIQUE: Routine abdominal CT angiogram protocol was performed with IV contrast. MIP images provided. A radiation dose optimization technique was used for this scan. IV Contrast dosage and agent: 100 mL Isovue-370 Radiation dose DLP 1577.10 mGy / cm. COMPARISON: CT abdomen and pelvis from 08/22/2021 FINDINGS: Lung bases: Chronic interstitial changes without a superimposed process. There has been a remote CABG Liver: Normal. No bile ductal dilatation. Gallbladder: Gallbladder is mildly distended and contains multiple gallstones but there is no wall thickening or biliary dilatation. Spleen: Normal. Adrenal gland: Normal. Kidneys: No obstructive uropathy or suspicious solid renal lesion, there is a simple 2 cm cyst in the right kidney. No specific follow-up needed. Pancreas:Normal. Bowel gas pattern: Nonobstructive. Appendix: Normal. Appendix seen on axial images 111 through 116 Free air: None. Free fluid: None. No CTA evidence of retroperitoneal hemorrhage Pelvis: Pelvic organs: Uterus is present, the endometrium cannot be accurately evaluated with CT. Bone survey: Extensive degenerative bony changes noted, old healed left superior and inferior pubic rami fractures, replaced left hip joint free of complication Adenopathy: No significant pathologic adenopathy detected. Other: None. Vascular: Peripheral calcifications noted in the abdominal aorta without aneurysm or dissection. Normal bifurcation into the common iliac arteries. There is diffuse swelling of the left rectus femoris musculature and bubbles of air within it suggesting inflammatory process. There is also diffuse swelling of the vastus musculature around the left femur with induration of the subcutaneous fat and some skin thickening. There is also good represent diffuse inflammatory change but could also be seen with trauma. CT/CTA Abd/Pelvis W/WO Contrast IMPRESSION: No CTA evidence of intraperitoneal or retroperitoneal bleed Diffuse swelling of the rectus femoris muscle, and the vastus musculature in the left pelvis and around the left femur. There are bubbles of subcutaneous emphysema noted suggesting this may represent an inflammatory process/myositis. There is also diffuse induration of the subcutaneous fat and some skin thickening, this could also represent sequela from trauma. Cholelithiasis, no CT evidence of acute cholecystitis Simple right renal cyst, no specific follow-up needed No free intraperitoneal fluid, air, or suspicious adenopathy, normal appendix visualized Old healed left superior and inferior pubic rami fractures, replaced left hip joint free of complication Electronically Signed: Juan José Pena MD at 8:46 EDT ,
[2022-10-25 08:16] LABS: International Normalized Ratio 1.8; Prothrombin Time (Protime)PT. 20.6 SECONDS (11.7-14.9)
--- NOTE | 2022-10-25 10:02 | PN_ITS ---
Subjective Subjective Patient seen and examined. She complains of some pain in her left hip but it is improving. She denies any lightheadedness, dizziness, palpitations, nausea, vomiting or any other symptoms. She denies any coffee ground emesis or dark stools. Review of systems is otherwise negative. Objective Data Objective Data Vital Signs: Vital Signs Temp Pulse Resp BP Pulse Ox O2 Del Method O2 Flow Rate 98.8 F 88 16 102/56 L 94 Room Air 4 10/25/22 06:07 10/25/22 06:07 10/25/22 06:07 10/25/22 06:07 10/25/22 06:07 10/25/22 06:07 10/21/22 11:35 Oxygen Flow Rate (L/min) 4 Oxygen Delivery Method Room Air Weight: 162 lb Body Mass Index (BMI) 29.6 Intake & Output: Intake and Output for Last 24 Hours 10/23/22 10/24/22 10/26/22 23:59 23:59 00:59 Intake Total 350 / 350 Output Total 400 / 400 400 / 400 Balance -50 / -50 -400 / -400 Lab / Micro Data Result Diagrams: 10/25/22 06:00 10/25/22 06:00 Labs: Laboratory Results - last 24 hr 10/24/22 10:30: PT 19.3 H, INR 1.7 10/24/22 21:05: POC Glucose 158 H 10/25/22 06:00: WBC 7.1, RBC 1.97 L, Hgb 5.8 L*, Hct 18.7 L, MCV 94.9, MCH 29.4, MCHC 31.0 L D, RDW Std Deviation 49.4 H, RDW Coeff of Tk 14.5, Plt Count 253, MPV 10.6, Immature Gran % (Auto) 1.700 H, Neut % (Auto) 76.8 H, Lymph % (Auto) 9.8 L, [place] % (Auto) 10.2 H, Eos % (Auto) 1.1, Baso % (Auto) 0.4, Absolute Neuts (auto) 5.4, Absolute Lymphs (auto) 0.69 L, Nucleated RBC % 0, Differential Comment SCANNED, Diff Path Review December10/25/22 06:00: Sodium 135 L, Potassium 3.8, Chloride 101, Carbon Dioxide 28.0, Anion Gap 6, BUN 37 H, Creatinine 0.85, Estim Creat Clear Calc 45.92, Est GFR (MDRD) Af Amer 84, Est GFR (MDRD) Non-Af 69, BUN/Creatinine Ratio 43.3 H, Glucose 168 H, Calcium 8.9 10/25/22 07:40: Blood Type AB POSITIVE, Antibody Screen NEGATIVE, Crossmatch See Detail 10/25/22 07:40: PT 20.6 H, INR 1.8 Micro: Microbiology 10/16/22 13:58 Swab (Method) Nasal Screen MRSA/MSSA - Final Radiography Diagnostic Testing: Radiology Impression Abdomen/Pelvis CTA 10/25/22 07:18 IMPRESSION: No CTA evidence of intraperitoneal or retroperitoneal bleed Diffuse swelling of the rectus femoris muscle, and the vastus musculature in the left pelvis and around the left femur. There are bubbles of subcutaneous emphysema noted suggesting this may represent an inflammatory process/myositis. There is also diffuse induration of the subcutaneous fat and some skin thickening, this could also represent sequela from trauma. Cholelithiasis, no CT evidence of acute cholecystitis Simple right renal cyst, no specific follow-up needed No free intraperitoneal fluid, air, or suspicious adenopathy, normal appendix visualized Old healed left superior and inferior pubic rami fractures, replaced left hip joint free of complication Electronically Signed: Juan José Pena MD at 8:46 EDT Reading Location ID and State: [facility] , Service support , Physical Exam Const alert, oriented x3 and no apparent distress General Appearance: cooperative HEENT normocephalic, head/scalp atraumatic and moist oral mucous membranes Eyes PERRL and EOMs intact bilaterally Neck no lymphadenopathy and supple Lymph Lymphatic: no lymphadenopathy noted and no lymphedema noted Resp normal respiratory effort, normal air movement and clear to auscultation bilaterally Cardio regular rate, regular rhythm, S1 normal heart sound, S2 normal heart sound and no murmurs Cardio Narrative: mechanical mitral valve click GI normal to inspection, nondistended, normoactive bowel sounds, soft to palpation, non-tender and non-distended Extremity normal capillary refill, no clubbing, cyanosis or edema and no calf tenderness Extremity Narrative: intact dressing over left hip; minimal bruising over left hip; very mild bruising over left inner thigh. Skin Skin Narrative: intact dressing over left hip; as under extremities. Very mild bruising over lower abdomen, likely due to lovenox injections Neuro CN's II-XII intact bilaterally, no focal motor deficits and no sensory deficits noted Motor Exam: strength 5/5 throughout Psych thought process normal Appearance: appropriate Assessment & Plan Assessment/Plan (1) S/P total left hip arthroplasty: (2) Anemia: PLAN: Plan #Acute post op anemia * was initially thought to be due to blood loss during surgery. However, blood loss seemed to be ~ 50cc only during surgery. * records from orthopedic surgeon's office showed her Hb was ~ 13.6 on 09/17/2022. THere were no other pre-op labs prior to surgery * Hb today is down to 5.8 * stable. * stool for occult blood was negative. * her iron panel showed low iron saturation, so patient started on oral iron supplementation * She does tell me that she had EGD and colonoscopy in July 2022 and per her recollection there were no significant findings. Patient would follow-up with a PCP for referral to gastroenterology for further work-up as needed. * gastroenterology on board. For EGD and colonoscopy tomorrow * CTA abdomen and pelvis done today showed no evidence of hematoma or re troperitoneal bleed, and showed diffuse swelling of the rectus femoris muscle and the vastus musculature in the left pelvis around the femur. Subcutaneous emphysema suggesting an inflammatory process or myositis. * will transfuse 2 units of PRBCs today. * Hold lovenox also. * * #Left hip osteoarthritis s/p left total hip replacement. * Today's postop day 4. Management as per orthopedic surgery * incentive spirometry * PT/OT on board. fall precautions * pain meds as per primary team orthopedics * History of mechanical mitral valve valve replacement: * This was in 2001. Coumadin with Lovenox bridge on hold on account of anemia * on lovenox for bridging coumadin. * Coumadin and Lovenox on hold. * * #Paroxysmal A-fib: On atenolol. Coumadin and eliquis on hold due to worsening anemia #Benign essential hypertension: On atenolol and lisinopril #Aortic stenosis s/p TAVR #Type 2 diabetes mellitus: On metformin and Lantus. Insulin sliding scale. Accu-Cheks ACHS. DVT prophylaxis: SCDs Disposition: for placement once medically stable. Charges/Coding Visit Charges Inpatient E&M: 17295 [facility] Hosp L3
--- NOTE | 2022-10-25 10:21 | PN.ORTHO_ITS ---
Subjective Subjective Patient is frustrated with having to stay in the hospital. She denies chest pain or SOB. Has had flatus but no BM. She denies abdominal pain, leg pain, numbness or tingling. Objective Data Objective Data Vital Signs: Vital Signs Temp Pulse Resp BP Pulse Ox O2 Del Method O2 Flow Rate 98.8 F 88 16 102/56 L 94 Room Air 4 10/25/22 06:07 10/25/22 06:07 10/25/22 06:07 10/25/22 06:07 10/25/22 06:07 10/25/22 06:07 10/21/22 11:35 Oxygen Flow Rate (L/min) 4 Oxygen Delivery Method Room Air Weight: 162 lb Body Mass Index (BMI) 29.6 Intake & Output: Intake and Output for Last 24 Hours 10/23/22 10/24/22 10/26/22 23:59 23:59 00:59 Intake Total 350 / 350 Output Total 400 / 400 400 / 400 Balance -50 / -50 -400 / -400 Lab / Micro Data Result Diagrams: 10/25/22 06:00 10/25/22 06:00 Labs: Laboratory Results - last 24 hr 10/24/22 10:30: PT 19.3 H, INR 1.7 10/24/22 21:05: POC Glucose 158 H 10/25/22 06:00: WBC 7.1, RBC 1.97 L, Hgb 5.8 L*, Hct 18.7 L, MCV 94.9, MCH 29.4, MCHC 31.0 L D, RDW Std Deviation 49.4 H, RDW Coeff of Tk 14.5, Plt Count 253, MPV 10.6, Immature Gran % (Auto) 1.700 H, Neut % (Auto) 76.8 H, Lymph % (Auto) 9.8 L, [place] % (Auto) 10.2 H, Eos % (Auto) 1.1, Baso % (Auto) 0.4, Absolute Neuts (auto) 5.4, Absolute Lymphs (auto) 0.69 L, Nucleated RBC % 0, Differential Comment SCANNED, Diff Path Review December10/25/22 06:00: Sodium 135 L, Potassium 3.8, Chloride 101, Carbon Dioxide 28.0, Anion Gap 6, BUN 37 H, Creatinine 0.85, Estim Creat Clear Calc 45.92, Est GFR ( MDRD) Af Amer 84, Est GFR (MDRD) Non-Af 69, BUN/Creatinine Ratio 43.3 H, Glucose 168 H, Calcium 8.9 10/25/22 07:40: Blood Type AB POSITIVE, Antibody Screen NEGATIVE, Crossmatch See Detail 10/25/22 07:40: PT 20.6 H, INR 1.8 Micro: Microbiology 10/16/22 13:58 Swab (Method) Nasal Screen MRSA/MSSA - Final Radiography Diagnostic Testing: Radiology Impression Abdomen/Pelvis CTA 10/25/22 07:18 IMPRESSION: No CTA evidence of intraperitoneal or retroperitoneal bleed Diffuse swelling of the rectus femoris muscle, and the vastus musculature in the left pelvis and around the left femur. There are bubbles of subcutaneous emphysema noted suggesting this may represent an inflammatory process/myositis. There is also diffuse induration of the subcutaneous fat and some skin thickening, this could also represent sequela from trauma. Cholelithiasis, no CT evidence of acute cholecystitis Simple right renal cyst, no specific follow-up needed No free intraperitoneal fluid, air, or suspicious adenopathy, normal appendix visualized Old healed left superior and inferior pubic rami fractures, replaced left hip joint free of complication Electronically Signed: Juan José Pena MD at 8:46 EDT , Physical Exam Const alert, oriented x3 and no apparent distress General Appearance: cooperative Cardio Cardio Narrative: Radial pulse palpable GI soft to palpation, non-tender and non-distended Extremity normal capillary refill, no clubbing, cyanosis or edema, no calf tenderness and no pedal edema Extremity Narrative: Thigh and hip soft. Incision with scant dry drainage proximally. Dressing intact Skin no rashes or lesions noted Neuro CN's II-XII intact bilaterally Psych mental status grossly normal Assessment & Plan Assessment/Plan (1) Anemia: PLAN: CTA of abdomen and pelvis unremarkable. Lovenox discontinued per hospitalist. Will type, cross and transfuse 2 units of PRBCs (2) S/P total left hip arthroplasty: PLAN: Stable Hold PT today due to anemia
[2022-10-25] MEDS: metFORMIN HCl 500 MG Tablet 2000 MG PO (10:27)
[2022-10-25] MEDS: Cholecalciferol (VIT D3) 25 MCG TABLET (1,000 UNITS) 50 MCG PO (10:28)
[2022-10-25] MEDS: Senna/Docusate Sodium 1 Tablet 2 TABLET PO ×2 (10:28→21:44)
--- NOTE | 2022-10-25 12:20 | PN_ITS ---
Subjective Subjective Patient still complains of fatigue and weakness. She does have a little bit of nausea. She does not have much of an appetite. She has not had any significant bowel movement since her surgery. Objective Data Objective Data Vital Signs: Vital Signs Temp Pulse Resp BP Pulse Ox O2 Del Method O2 Flow Rate 98.3 F 88 16 109/51 L 97 Room Air 4 10/25/22 09:00 10/25/22 09:00 10/25/22 09:00 10/25/22 09:00 10/25/22 09:00 10/25/22 09:00 10/21/22 11:35 Oxygen Flow Rate (L/min) 4 Oxygen Delivery Method Room Air Weight: 162 lb Body Mass Index (BMI) 29.6 Intake & Output: Intake and Output for Last 24 Hours 10/23/22 10/24/22 10/26/22 23:59 23:59 00:59 Intake Total 350 / 350 Output Total 400 / 400 400 / 400 Balance -50 / -50 -400 / -400 Lab / Micro Data Result Diagrams: 10/25/22 06:00 10/25/22 06:00 Labs: Laboratory Results - last 24 hr 10/24/22 21:05: POC Glucose 158 H 10/25/22 06:00: WBC 7.1, RBC 1.97 L, Hgb 5.8 L*, Hct 18.7 L, MCV 94.9, MCH 29.4, MCHC 31.0 L D, RDW Std Deviation 49.4 H, RDW Coeff of Tk 14.5, Plt Count 253, MPV 10.6, Immature Gran % (Auto) 1.700 H, Neut % (Auto) 76.8 H, Lymph % (Auto) 9.8 L, [place] % (Auto) 10.2 H, Eos % (Auto) 1.1, Baso % (Auto) 0.4, Absolute Neuts (auto) 5.4, Absolute Lymphs (auto) 0.69 L, Nucleated RBC % 0, Differential Comment SCANNED, Diff Path Review December10/25/22 06:00: Sodium 135 L, Potassium 3.8, Chloride 101, Carbon Dioxide 28.0, Anion Gap 6, BUN 37 H, Creatinine 0.85, Estim Creat Clear Calc 45.92, Est GFR (MDRD) Af Amer 84, Est GFR (MDRD) Non-Af 69, BUN/Creatinine Ratio 43.3 H, Glucose 168 H, Calcium 8.9 10/25/22 07:40: Blood Type AB POSITIVE, Antibody Screen NEGATIVE, Crossmatch See Detail 10/25/22 07:40: PT 20.6 H, INR 1.8 Micro: Microbiology 10/16/22 13:58 Swab (Method) Nasal Screen MRSA/MSSA - Final Radiography Diagnostic Testing: Radiology Impression Abdomen/Pelvis CTA 10/25/22 07:18 IMPRESSION: No CTA evidence of intraperitoneal or retroperitoneal bleed Diffuse swelling of the rectus femoris muscle, and the vastus musculature in the left pelvis and around the left femur. There are bubbles of subcutaneous emphysema noted suggesting this may represent an inflammatory process/myositis. There is also diffuse induration of the subcutaneous fat and some skin thickening, this could also represent sequela from trauma. Cholelithiasis, no CT evidence of acute cholecystitis Simple right renal cyst, no specific follow-up needed No free intraperitoneal fluid, air, or suspicious adenopathy, normal appendix visualized Old healed left superior and inferior pubic rami fractures, replaced left hip joint free of complication Electronically Signed: Juan José Pena MD at 8:46 EDT , Physical Exam Const alert, oriented x3 and no apparent distress General Appearance: cooperative Cardio Cardio Narrative: Radial pulse palpable GI soft to palpation, non-tender and non-distended Extremity normal capillary refill, no clubbing, cyanosis or edema, no calf tenderness and no pedal edema Extremity Narrative: Thigh and hip soft. Incision with scant dry drainage proximally. Dressing intact Skin no rashes or lesions noted Neuro CN's II-XII intact bilaterally Psych mental status grossly normal Assessment & Plan Assessment/Plan (1) Anemia: PLAN: She should undergo an upper endoscopy and possibly a capsule endoscopy. She recently had a colonoscopy back in July 2022 for screening purposes and there were no abnormalities at that time. I think it is important to find out a source of acute blood loss anemia due to the fact that she has to be on warfarin therapy due to her history of aortic valve replacement. Recommend transfuse to keep hematocrit greater than 35%. The plan is for endoscopy on 10/26/2022. PLAN: Plan She had a CT angiography of the abdomen and pelvis. It did not show any signs of active bleeding or recent bleeding. She continues to have a significant decrease in hemoglobin. Recommend to transfuse 2 units of packed red blood cells in anticipation for endoscopy. Charges/Coding Visit Charges Inpatient E&M: 25171 Subs Hosp L3
[2022-10-25] MEDS: Ferrous Sulfate 325 MG Tablet PO ×2 (12:30→17:00)
[2022-10-25] MEDS: oxyCODONE 5 MG Tablet PO (12:42)
[2022-10-25] MEDS: 0.9% Saline Lock 10 ML Syringe IV (13:16)
[2022-10-25] MEDS: Ondansetron 4 MG/2 ML Vial IV (13:16)
[2022-10-25] MEDS: DiphenhydrAMINE 25 MG Capsule 50 MG PO (21:44)
[2022-10-25] MEDS: Atorvastatin Calcium 40 MG Tablet PO (21:44)
[2022-10-25 22:05] LABS: Bedside Glucose 109 mg/dL (74-106)
[2022-10-26] VITALS (12 sets, daily range): BP systolic 103–135; BP diastolic 42–58; PULSE 78–106; RESP 16–40; TEMP 36.7–37.5; O2SAT 94–98
--- NOTE | 2022-10-26 00:01 | NURSING ---
Addendum entered by Faina Tanner 10/26/22 00:46: When this RN entered room to insert nayak, pt had urinated using purewick. Nayak not inserted at this time. Will continue to monitor. Original Note: This RN bladder scanned pt d/t no voiding and 2 previous straight caths on 10/25. 872ml of urine was noted on scan. Will insert nayak catheter since it is the third attempt of relieving pt's bladder. Pt understands.
[2022-10-26] MEDS: traMADol 50 MG Tablet PO ×3 (00:43→15:03)
[2022-10-26] MEDS: Acetaminophen 500 MG Tablet 1000 MG PO ×3 (05:18→22:00)
[2022-10-26] MEDS: Gemfibrozil 600 MG Tablet PO ×2 (05:18→15:04)
[2022-10-26 06:17] LABS: Absolute Lymphocyte Count 0.74 X10^3/uL (0.83-4.51); Absolute Neutrophil Count 3.8 X10^3/uL (2.0-7.7); Basophil# 0.03 X10^3/uL; Basophil% 0.5 % (0-1); Eosinophil# 0.23 X10^3/uL; Eosinophils% 4.2 % (0-5); Hematocrit 27.4 % (37-47); Hemoglobin 8.9 g/dL (12.0-15.0); Lymphocyte # 0.74 X10^3/ul (0.83-4.51); Lymphocyte % 13.5 % (19-41); Mean Corp Hgb Conc 32.5 g/dL (32-36); Mean Corpuscular Hgb 29.8 pg (27.0-32.0); Mean Corpuscular Volume 91.6 fL (81-99); Mean Platelet Vol. 10.1 fl (6.2-12.0); Monocyte# 0.54 X10^3/uL; Monocyte% 9.9 % (0-10); NRBC Flagged by Analyzer 0.4 % (0-5); Neutrophil # 3.83 X10^3/uL (2.7-7.7); Neutrophil % 70.1 % (47-70); Platelet Count 247 K/mm3 (150-450); RBC Distribution Width CV 15.2 % (11.6-14.6); RBC Distribution Width SD 50.4 fl (35.1-43.9); Red Blood Count 2.99 M/mm3 (4.2-5.4); White Blood Count 5.5 K/mm3 (4.4-11.0)
[2022-10-26 06:37] LABS: Anion Gap 5 (5-15); BUN 20 mg/dL (7-18); BUN/Creat Ratio 43.6 RATIO (10-20); Calcium,Total 9.2 mg/dL (8.5-10.1); Chloride 105 mmol/L (98-107); Creatinine, Serum 0.46 mg/dL (0.55-1.02); EST Glomerular Filtration Rate 141 mL/min (>60); Est Glom Filt Rate - Afr Amer 171 mL/min (>60); Estimated Creatinine Clearance 39.04 ml/min; Glucose 115 mg/dL (74-106); Potassium 4.6 mmol/L (3.5-5.1); Sodium Level 139 mmol/L (136-145)
--- NOTE | 2022-10-26 08:05 | PCM.PN.HOSP ---
Reason for Visit Reason for Visit: Left hip osteoarthritis-status post total hip arthroplasty Subjective Subjective Admitted for left total hip arthroplasty however hemoglobin dropped substantially postoperatively. It appears she has required transfusion at least twice during her hospital course. Hemoglobin yesterday was 5.8 but up to 8.9 today. Plan is for EGD later today and possible capsule endoscopy as an outpatient after discharge depending on findings on EGD. She is chronically anticoagulated with Coumadin for PAF and history of mechanical mitral valve replacement in 2001. It would behoove us to get her back on anticoagulation as soon as possible. Last INR was done yesterday and was 1.8. She is being bridged with Lovenox for goal INR of 2.5-3.5. Patient denies any symptoms at this time. I explained that her EGD was unremarkable. She had a recent colonoscopy that was unremarkable. Will need outpatient capsule endoscopy. Repeat hemoglobin pending and is stable medically stable if hemoglobin remained stable. Will need ongoing anticoagulation. Patient has no complaints or needs at this time other than being hungry. Objective Data Objective Data Vital Signs: Vital Signs Temp Pulse Resp BP Pulse Ox O2 Del Method O2 Flow Rate 98.1 F 78 18 108/51 L 98 Room Air 2 10/26/22 07:39 10/26/22 07:39 10/26/22 07:39 10/26/22 07:39 10/26/22 07:39 10/26/22 07:41 10/25/22 14:34 Oxygen Flow Rate (L/min) 2 Oxygen Delivery Method Room Air Weight: 73.482 kg Body Mass Index (BMI) 29.6 Intake & Output: Intake and Output for Last 24 Hours 10/24/22 10/25/22 10/26/22 22:59 23:59 23:59 Intake Total Output Total 550 / 550 Balance -550 / -550 Lab / Micro Data Result Diagrams: 10/26/22 15:00 10/26/22 05:55 Labs: Laboratory Results - last 24 hr 10/25/22 07:40: Blood Type AB POSITIVE, Antibody Screen NEGATIVE, Crossmatch See Detail 10/25/22 07:40: PT 20.6 H, INR 1.8 10/25/22 21:46: POC Glucose 109 H 10/26/22 05:55: WBC 5.5, RBC 2.99 L, Hgb 8.9 L, Hct 27.4 L, MCV 91.6, MCH 29.8, MCHC 32.5, RDW Std Deviation 50.4 H, RDW Coeff of Tk 15.2 H, Plt Count 247, MPV 10.1, Immature Gran % (Auto) 1.800 H, Neut % (Auto) 70.1 H, Lymph % (Auto) 13.5 L, [place] % (Auto) 9.9, Eos % (Auto) 4.2, Baso % (Auto) 0.5, Absolute Neuts (auto) 3.8, Absolute Lymphs (auto) 0.74 L, Nucleated RBC % 0.4 10/26/22 05:55: Sodium 139, Potassium 4.6, Chloride 105, Carbon Dioxide 29.0, Anion Gap 5, BUN 20 H, Creatinine 0.46 L, Estim Creat Clear Calc 39.04, Est GFR (MDRD) Af Amer 171, Est GFR (MDRD) Non-Af 141, BUN/Creatinine Ratio 43.6 H, Glucose 115 H, Calcium 9.2 Micro: Microbiology 10/16/22 13:58 Swab (Method) Nasal Screen MRSA/MSSA - Final Radiography Diagnostic Testing: Radiology Impression Abdomen/Pelvis CTA 10/25/22 07:18 IMPRESSION: No CTA evidence of intraperitoneal or retroperitoneal bleed Diffuse swelling of the rectus femoris muscle, and the vastus musculature in the left pelvis and around the left femur. There are bubbles of subcutaneous emphysema noted suggesting this may represent an inflammatory process/myositis. There is also diffuse induration of the subcutaneous fat and some skin thickening, this could also represent sequela from trauma. Cholelithiasis, no CT evidence of acute cholecystitis Simple right renal cyst, no specific follow-up needed No free intraperitoneal fluid, air, or suspicious adenopathy, normal appendix visualized Old healed left superior and inferior pubic rami fractures, replaced left hip joint free of complication Electronically Signed: Juan José Pena MD at 8:46 EDT , Physical Exam Const alert, oriented x3, no apparent distress and well nourished Constitutional Narrative: Older white female, sitting up, family at bedside, appears comfortable nontoxic HEENT head/scalp atraumatic and moist oral mucous membranes HEENT Narrative: Mallampati is 2-3, dentition is poor, no thrush Head and Scalp: normocephalic Resp normal respiratory effort, no retractions, no use of accessory muscles and clear to auscultation bilaterally Auscultation: Negative for rales, rhonchi or wheezes Cardio regular rate, S1 normal heart sound, S2 normal heart sound, no murmurs, no rub and no gallops; Negative for regular rhythm or no clicks Cardio Narrative: Positive click from mechanical mitral valve, rhythm is irregularly irregular with a regular rate GI normal to inspection, nondistended, normoactive bowel sounds and soft to palpation Extremity no clubbing, cyanosis or edema Extremity Narrative: 2+ pedal pulses Skin Skin Narrative: Postoperative dressing intact, clean and dry Neuro oriented x3, moves all extremities and no focal motor deficits Speech: speech normal Psych affect normal Psych Narrative: Very pleasant Assessment & Plan Assessment/Plan (1) Anemia: (2) S/P total left hip arthroplasty: PLAN: Plan Left hip osteoarthritis -Postop day 5 left total hip arthroplasty -Pain management per primary service -PT/OT -Bowel regimen as ordered Acute anemia -Initially was felt to be to be postop losses however only approximately 50 cc were lost during surgery -Baseline hemoglobin per orthopedic surgery's records is approximately 13.6 on 09/17/2022 -Hemoglobin has trended down to as low as 5.8. -Has been transfused a total of 4 units packed red blood cells--> hemoglobin this a.m. was 8.9 with a repeat this afternoon of 8.8 -CTA of the abdomen pelvis was unrevealing -Patient does require chronic anticoagulation due to paroxysmal atrial fibrillation and history of mechanical mitral valve -Continue Coumadin -Continue bridging with Lovenox this patient has a mechanical mitral valve -EGD unremarkable -Will need capsule endoscopy after discharge -Continue iron supplementation as iron studies were consistent with iron deficiency -Stool was occult negative -D/C Protonix drip and restart home Protonix orally -Restart cardiac/carb controlled diet -GI following-appreciate input PAF/aortic valve stenosis/mechanical mitral valve -Continue Coumadin -Continue Lovenox 60 twice daily -Continue home atenolol -TAVR performed on 09/18/2020 -Mechanical mitral valve placement in 09/29/2001 -Goal INR is 2.5-3.5 Hypertension -Continue atenolol -Continue lisinopril Hyperlipidemia -Continue home statin DM-2 -Continue home metformin -Continue home Lantus -Continue sliding scale -Continue Accu-Cheks GERD -Restart home PPI and discontinue drip Vitamin D deficiency -Continue vitamin D supplementation DVT prophylaxis -SCDs -Continue therapeutic Lovenox with Coumadin Disposition: Pre-CERT remains pending. Attempted to call Dr. Weston's PA but no answer. If hemoglobin remains stable with no need for transfusion okay for discharge once pre-CERT is obtained. Charges/Coding Visit Charges Inpatient E&M: 23336 Subs Hosp L2
--- NOTE | 2022-10-26 08:41 | CASEMGMT ---
Addendum entered by Rachel Lindsay 10/26/22 10:26: [facility] reached out via [employer]. Precert still pending. Original Note: Social Work [facility] messaged via [employer] to update that [facility] is requesting updated therapy notes. PATRICIA sent updates via [employer]. ADRIENNE Cordero
[2022-10-26] MEDS: 0.9% Normal Saline 1,000 ML 15 ML IV (12:23)
--- NOTE | 2022-10-26 13:18 | PN.ORTHO_ITS ---
Subjective Subjective Upon entering the room I found patient has been taken to endoscopy for an upper GI. Nursing reports the patient has been feeling better and has ambulated well today. Reports that her dressing has no new bleeding. The swelling has reduced on her thigh and hip. Objective Data Objective Data Vital Signs: Vital Signs Temp Pulse Resp BP Pulse Ox O2 Del Method O2 Flow Rate 98.3 F 84 18 103/44 L 98 Room Air 2 10/26/22 11:35 10/26/22 11:35 10/26/22 11:35 10/26/22 11:35 10/26/22 11:35 10/26/22 11:35 10/25/22 14:34 Oxygen Flow Rate (L/min) 2 Oxygen Delivery Method Room Air Weight: 73.482 kg Body Mass Index (BMI) 29.6 Intake & Output: Intake and Output for Last 24 Hours 10/24/22 10/25/22 10/26/22 22:59 23:59 23:59 Intake Total 0 / 0 Output Total 1200 / 1200 Balance -1200 / -1200 Lab / Micro Data Result Diagrams: 10/26/22 05:55 10/26/22 05:55 Labs: Laboratory Results - last 24 hr 10/25/22 07:40: Blood Type AB POSITIVE, Antibody Screen NEGATIVE, Crossmatch See Detail 10/25/22 21:46: POC Glucose 109 H 10/26/22 05:55: WBC 5.5, RBC 2.99 L, Hgb 8.9 L, Hct 27.4 L, MCV 91.6, MCH 29.8, MCHC 32.5, RDW Std Deviation 50.4 H, RDW Coeff of Tk 15.2 H, Plt Count 247, MPV 10.1, Immature Gran % (Auto) 1.800 H, Neut % (Auto) 70.1 H, Lymph % (Auto) 13.5 L, [place] % (Auto) 9.9, Eos % (Auto) 4.2, Baso % (Auto) 0.5, Absolute Neuts (auto) 3.8, Absolute Lymphs (auto) 0.74 L, Nucleated RBC % 0.4 10/26/22 05:55: Sodium 139, Potassium 4.6, Chloride 105, Carbon Dioxide 29.0, Anion Gap 5, BUN 20 H, Creatinine 0.46 L, Estim Creat Clear Calc 39.04, Est GFR (MDRD) Af Amer 171, Est GFR (MDRD) Non-Af 141, BUN/Creatinine Ratio 43.6 H, Glucose 115 H, Calcium 9.2 Micro: Microbiology 10/16/22 13:58 Swab (Method) Nasal Screen MRSA/MSSA - Final Physical Exam Narrative Patient not a available for exam. Assessment & Plan Assessment/Plan (1) Anemia: (2) S/P total left hip arthroplasty: PLAN: 1. Continue all pain medications as prescribed 2. Medicine will continue to manage 3. Restart anticoagulation as directed by medicine 4. Pending results of endoscopy possible discharge to [facility] today. 5. Continue physical therapy full weightbearing as tolerated with walker 6. Follow-up as scheduled with Dr. Weston
[2022-10-26 14:03] LABS: Pathologist Review Reviewed
--- NOTE | 2022-10-26 14:12 | OP.EGD_ITS ---
Patient Name: Louise Ashford Procedure Date: 10/26/2022 1:46 PM Date of : 1950 Age: 72 Procedure: Upper GI endoscopy Indications: Iron deficiency anemia Providers: DO Alejandra Villalobos MD: Konstantin Weston Medicines: Monitored Anesthesia Care Patient Profile: This is a 72 year old female. Refer to note in patient chart for documentation of history and physical. Patient has symptoms of acute dyspepsia and acute nausea. Complications: No immediate complications. Procedure: Pre-Anesthesia Assessment: - Prior to the procedure, a History and Physical was performed, and patient medications and allergies were reviewed. The risks and benefits of the procedure and the sedation options and risks were discussed with the patient. All questions were answered and informed consent was obtained. Patient identification and proposed procedure were verified by the physician in the pre-procedure area. Mental Status Examination: alert and oriented. Airway Examination: normal oropharyngeal airway and neck mobility. Respiratory Examination: clear to auscultation. CV Examination: normal. Prophylactic Antibiotics: The patient does not require prophylactic antibiotics. Prior Anticoagulants: The patient has taken no previous anticoagulant or antiplatelet agents. ASA Grade Assessment: III - A patient with severe systemic disease. After reviewing the risks and benefits, the patient was deemed in satisfactory condition to undergo the procedure. The anesthesia plan was to use monitored anesthesia care (MAC). Immediately prior to administration of medications, the patient was re-assessed for adequacy to receive sedatives. The heart rate, respiratory rate, oxygen saturations, blood pressure, adequacy of pulmonary ventilation, and response to care were monitored throughout the procedure. The physical status of the patient was re-assessed after the procedure. After obtaining informed consent, the endoscope was passed under direct vision. Throughout the procedure, the patient's blood pressure, pulse, and oxygen saturations were monitored continuously. The gastroscope was introduced through the mouth, and advanced to the second part of duodenum. The upper GI endoscopy was accomplished without difficulty. The patient tolerated the procedure well. Scope In: 2:01:47 PM Scope Out: 2:07:00 PM Total Procedure Duration Time 0 hours 5 minutes 13 seconds Findings: The examined esophagus was normal. A large hiatal hernia was present. The exam of the stomach was otherwise normal. The in the duodenum was normal. Impression: - Normal esophagus. - Large hiatal hernia. - Normal. - No specimens collected. Recommendation: - Return [facility]. - Resume regular diet. - Continue present medications. Procedure Code(s): --- Professional --- 69209, Esophagogastroduodenoscopy, flexible, transoral; diagnostic, including collection of specimen(s) by brushing or washing, when performed (separate procedure) CPT copyright 2017 [employer]. All rights reserved. The codes documented in this report are preliminary and upon logistics account manager review may be revised to meet current compliance requirements. Donaldo Cantrell DO 10/26/2022 2:12:35 PM This report has been signed electronically. Number of Addenda: 0 Note Initiated On: 10/26/2022 1:46 PM
--- NOTE | 2022-10-26 14:13 | OP.CCLET_ITS ---
10/26/2022 Gwen David [address] [place] [address] Re : Upper GI endoscopy procedure for Louise Ashford Dear Dr. David This procedure was performed on Wednesday, October 26, 2022. My impressions and recommendations are as follows: Impressions : - Normal esophagus. - Large hiatal hernia. - Normal. - No specimens collected. Recommendations : - [facility] to [facility]. - Resume regular diet. - Continue present medications. My findings are described in the full procedure note, which is enclosed. If I can be of further assistance, please feel free to contact me at . Sincerely, Donaldo Cantrell, 10/26/2022 2:12:35 PM This report has been signed electronically.
[2022-10-26 15:18] LABS: Hemoglobin 8.8 g/dL (12.0-15.0)
[2022-10-26] MEDS: Ferrous Sulfate 325 MG Tablet PO (18:02)
[2022-10-26] MEDS: traMADol 50 MG Tablet 100 MG PO (20:16)
[2022-10-26] MEDS: Insulin Glargine-YFGN 100 UNIT/ML Pen 40 UNIT SC (22:00)
[2022-10-26] MEDS: Senna/Docusate Sodium 1 Tablet 2 TABLET PO (22:00)
[2022-10-26] MEDS: DiphenhydrAMINE 25 MG Capsule 50 MG PO (22:00)
[2022-10-26] MEDS: Atorvastatin Calcium 40 MG Tablet PO (22:00)
[2022-10-26 22:25] LABS: Bedside Glucose 262 mg/dL (74-106)
[2022-10-27] VITALS (7 sets, daily range): BP systolic 104–131; BP diastolic 47–65; PULSE 87–102; RESP 16–18; TEMP 36.3–37.3; O2SAT 95–96
[2022-10-27] MEDS: Atenolol 50 MG Tablet PO (03:45)
[2022-10-27] MEDS: Acetaminophen 500 MG Tablet 1000 MG PO ×3 (05:38→22:28)
[2022-10-27] MEDS: Gemfibrozil 600 MG Tablet PO ×2 (05:38→16:48)
[2022-10-27 06:46] LABS: Absolute Lymphocyte Count 0.67 X10^3/uL (0.83-4.51); Absolute Neutrophil Count 7.3 X10^3/uL (2.0-7.7); Basophil# 0.05 X10^3/uL; Basophil% 0.5 % (0-1); Eosinophil# 0.26 X10^3/uL; Eosinophils% 2.8 % (0-5); Hematocrit 27.9 % (37-47); Hemoglobin 8.7 g/dL (12.0-15.0); Lymphocyte # 0.67 X10^3/ul (0.83-4.51); Lymphocyte % 7.3 % (19-41); Mean Corp Hgb Conc 31.2 g/dL (32-36); Mean Corpuscular Hgb 29.8 pg (27.0-32.0); Mean Corpuscular Volume 95.5 fL (81-99); Mean Platelet Vol. 10.3 fl (6.2-12.0); Monocyte# 0.78 X10^3/uL; Monocyte% 8.5 % (0-10); NRBC Flagged by Analyzer 0.2 % (0-5); Neutrophil # 7.27 X10^3/uL (2.7-7.7); Neutrophil % 79.5 % (47-70); Platelet Count 326 K/mm3 (150-450); RBC Distribution Width CV 15.2 % (11.6-14.6); RBC Distribution Width SD 53.2 fl (35.1-43.9); Red Blood Count 2.92 M/mm3 (4.2-5.4); White Blood Count 9.2 K/mm3 (4.4-11.0)
[2022-10-27 06:57] LABS: International Normalized Ratio 1.6; Prothrombin Time (Protime)PT. 19.1 SECONDS (11.7-14.9)
[2022-10-27 07:11] LABS: Anion Gap 5 (5-15); BUN 16 mg/dL (7-18); BUN/Creat Ratio 31.6 RATIO (10-20); Calcium,Total 9.3 mg/dL (8.5-10.1); Chloride 102 mmol/L (98-107); Creatinine, Serum 0.51 mg/dL (0.55-1.02); EST Glomerular Filtration Rate 126 mL/min (>60); Est Glom Filt Rate - Afr Amer 152 mL/min (>60); Estimated Creatinine Clearance 39.04 ml/min; Glucose 185 mg/dL (74-106); Potassium 4.6 mmol/L (3.5-5.1); Sodium Level 135 mmol/L (136-145)
[2022-10-27] MEDS: Pantoprazole Sodium 40 MG Tablet PO (09:53)
[2022-10-27] MEDS: metFORMIN HCl 500 MG Tablet 2000 MG PO (09:54)
[2022-10-27] MEDS: Senna/Docusate Sodium 1 Tablet 2 TABLET PO (09:59)
[2022-10-27] MEDS: Ferrous Sulfate 325 MG Tablet PO ×2 (10:00→16:48)
[2022-10-27] MEDS: Lisinopril 20 MG Tablet 40 MG PO (10:00)
[2022-10-27] MEDS: Cholecalciferol (VIT D3) 25 MCG TABLET (1,000 UNITS) 50 MCG PO (10:01)
--- NOTE | 2022-10-27 11:41 | PCM.PN.ORT ---
Subjective Subjective Patient sitting up in bed eating lunch. Patient states her pain has been well managed. Still has some discomfort with ambulation. Patient denies chest pain, shortness of breath, calf pain, nausea vomiting. Patient states she is ready for discharge home. She denies any feeling of lightheadedness with ambulation. No other complaints at this time Objective Data Objective Data Vital Signs: Vital Signs Temp Pulse Resp BP Pulse Ox O2 Del Method O2 Flow Rate 97.4 F L 87 18 131/65 H 96 Room Air 2 10/27/22 09:23 10/27/22 09:23 10/27/22 09:23 10/27/22 09:23 10/27/22 08:25 10/27/22 02:37 10/25/22 14:34 Oxygen Flow Rate (L/min) 2 Oxygen Delivery Method Room Air Weight: 73.482 kg Body Mass Index (BMI) 29.6 Intake & Output: Intake and Output for Last 24 Hours 10/25/22 10/26/22 10/27/22 23:59 23:59 23:59 Intake Total 921.75 / 921.75 Output Total 1200 / 1400 1050 / 1050 Balance -278.25 / -478.25 -1050 / -1050 Lab / Micro Data Result Diagrams: 10/27/22 06:17 10/27/22 06:17 Labs: Laboratory Results - last 24 hr 10/25/22 06:00: Diff Path Review Reviewed 10/26/22 15:00: Hgb 8.8 L 10/26/22 21:56: POC Glucose 262 H 10/27/22 06:17: WBC 9.2, RBC 2.92 L, Hgb 8.7 L, Hct 27.9 L, MCV 95.5, MCH 29.8, MCHC 31.2 L, RDW Std Deviation 53.2 H, RDW Coeff of Tk 15.2 H, Plt Count 326, MPV 10.3, Immature Gran % (Auto) 1.400 H, Neut % (Auto) 79.5 H, Lymph % (Auto) 7.3 L, [place] % (Auto) 8.5, Eos % (Auto) 2.8, Baso % (Auto) 0.5, Absolute Neuts (auto) 7.3, Absolute Lymphs (auto) 0.67 L, Nucleated RBC % 0.2 10/27/22 06:17: Sodium 135 L, Potassium 4.6, Chloride 102, Carbon Dioxide 28.0, Anion Gap 5, BUN 16, Creatinine 0.51 L, Estim Creat Clear Calc 39.04, Est GFR (MDRD) Af Amer 152, Est GFR (MDRD) Non-Af 126, BUN/Creatinine Ratio 31.6 H, Glucose 185 H, Calcium 9.3 10/27/22 06:17: PT 19.1 H, INR 1.6 Micro: Microbiology 10/16/22 13:58 Swab (Method) Nasal Screen MRSA/MSSA - Final Physical Exam Narrative Exam I found the patient sitting comfortably up in bed eating lunch. Patient in no respiratory distress speaking in full sentences. Patient moving upper extremities without limitations. Cranial nerves II through XII gross intact. Patient's left hip was cool to touch nonerythematous. The dressing was dry and intact no additional bleeding was noted on the dressing. The thigh and gluteal region was mildly tender to palpation but soft. Good flexion extension of the bilateral knees. No calf tenderness. Neurovascular is otherwise intact to the left lower extremity. Const alert and oriented x3 General Appearance: cooperative and well developed HEENT normocephalic Eyes PERRL Resp normal respiratory effort Effort and Inspection: able to speak in complete sentences Extremity normal capillary refill Skin no rashes or lesions noted Neuro CN's II-XII intact bilaterally Psych mental status grossly normal and affect normal Assessment & Plan Assessment/Plan (1) S/P total left hip arthroplasty: PLAN: 1. Continue all pain medications as prescribed 2. Per medicine patient will resume her Lovenox Coumadin as directed by her primary care preoperatively 3. Encourage incentive spirometry 4. Discharge to ECF today when cleared by insurance 5. As per medicine patient will obtain a CBC in 24 hours a CBC in 48 hours. 6. Repeat PT/INR on 10/30/2022 7. Remove bharati 11/04/2022 8. Replace dressing prior to discharge to ECF 9. Follow-up with Dr. Weston as scheduled 10. Patient can shower 10/28/2022 11. Weight-bear as tolerated with walker.
--- NOTE | 2022-10-27 12:12 | PN.HOSP_ITS ---
Reason for Visit Reason for Visit: Left hip osteoarthritis Subjective Subjective No issues overnight. Hemoglobin is stable. EGD was negative for any bleeding. Patient will need small bowel capsule endoscopy after discharge and this was discussed with her and placed in the discharge summary. Objective Data Objective Data Vital Signs: Vital Signs Temp Pulse Resp BP Pulse Ox O2 Del Method O2 Flow Rate 97.4 F L 87 18 131/65 H 96 Room Air 2 10/27/22 09:23 10/27/22 09:23 10/27/22 09:23 10/27/22 09:23 10/27/22 08:25 10/27/22 02:37 10/25/22 14:34 Oxygen Flow Rate (L/min) 2 Oxygen Delivery Method Room Air Weight: 73.482 kg Body Mass Index (BMI) 29.6 Intake & Output: Intake and Output for Last 24 Hours 10/25/22 10/26/22 10/27/22 23:59 23:59 23:59 Intake Total 921.75 / 921.75 Output Total 1200 / 1400 1050 / 1050 Balance -278.25 / -478.25 -1050 / -1050 Lab / Micro Data Result Diagrams: 10/27/22 06:17 10/27/22 06:17 Labs: Laboratory Results - last 24 hr 10/25/22 06:00: Diff Path Review Reviewed 10/26/22 15:00: Hgb 8.8 L 10/26/22 21:56: POC Glucose 262 H 10/27/22 06:17: WBC 9.2, RBC 2.92 L, Hgb 8.7 L, Hct 27.9 L, MCV 95.5, MCH 29.8, MCHC 31.2 L, RDW Std Deviation 53.2 H, RDW Coeff of Tk 15.2 H, Plt Count 326, MPV 10.3, Immature Gran % (Auto) 1.400 H, Neut % (Auto) 79.5 H, Lymph % (Auto) 7.3 L, [place] % (Auto) 8.5, Eos % (Auto) 2.8, Baso % (Auto) 0.5, Absolute Neuts (auto) 7.3, Absolute Lymphs (auto) 0.67 L, Nucleated RBC % 0.2 10/27/22 06:17: Sodium 135 L, Potassium 4.6, Chloride 102, Carbon Dioxide 28.0, Anion Gap 5, BUN 16, Creatinine 0.51 L, Estim Creat Clear Calc 39.04, Est GFR (MDRD) Af Amer 152, Est GFR (MDRD) Non-Af 126, BUN/Creatinine Ratio 31.6 H, Glucose 185 H, Calcium 9.3 10/27/22 06:17: PT 19.1 H, INR 1.6 Micro: Microbiology 10/16/22 13:58 Swab (Method) Nasal Screen MRSA/MSSA - Final Physical Exam Const alert, oriented x3, no apparent distress and well nourished Constitutional Narrative: Older white female, sitting up, family at bedside, appears comfortable nontoxic General Appearance: cooperative HEENT normocephalic, head/scalp atraumatic and moist oral mucous membranes Eyes PERRL and EOMs intact bilaterally Neck no lymphadenopathy and supple Lymph Lymphatic: no lymphadenopathy noted and no lymphedema noted Resp normal respiratory effort, normal air movement, no retractions, no use of accessory muscles and clear to auscultation bilaterally Auscultation: Negative for rales, rhonchi or wheezes Cardio regular rate, S1 normal heart sound, S2 normal heart sound, no murmurs, no rub and no gallops; Negative for regular rhythm or no clicks Cardio Narrative: Positive click from mechanical mitral valve, rhythm is irregularly irregular with a regular rate GI normal to inspection, nondistended, normoactive bowel sounds, soft to palpation, non-tender and non-distended Extremity normal capillary refill, no clubbing, cyanosis or edema and no calf tenderness Extremity Narrative: 2+ pedal pulses Skin Skin Narrative: Postoperative dressing intact, clean and dry General Skin Exam: no breakdown Neuro oriented x3, CN's II-XII intact bilaterally, moves all extremities, no focal motor deficits and no sensory deficits noted Speech: speech normal Motor Exam: strength 5/5 throughout Psych thought process normal and affect normal Psych Narrative: Very pleasant Appearance: appropriate Assessment & Plan Assessment/Plan (1) Anemia: (2) S/P total left hip arthroplasty: PLAN: Plan Left hip osteoarthritis -Postop day 6 left total hip arthroplasty -Pain management per primary service -PT/OT -Bowel regimen as ordered Acute anemia -Initially was felt to be to be postop losses however only approximately 50 cc were lost during surgery -Baseline hemoglobin per orthopedic surgery's records is approximately 13.6 on 09/17/2022 -Hemoglobin has trended down to as low as 5.8. -Has been transfused a total of 4 units packed red blood cells--> hemoglobin has been stable in the range of 8 5-9 since the a.m. of 10/26/2022 -CTA of the abdomen pelvis was unrevealing -Patient does require chronic anticoagulation due to paroxysmal atrial fibr illation and history of mechanical mitral valve -After review of medications the Coumadin and Lovenox were actually held on the OCT and not continued -Restart these today with negative EGD -EGD unremarkable and recent colonoscopy that was unremarkable -Will need capsule endoscopy after discharge -Continue iron supplementation as iron studies were consistent with iron deficiency -Stool was occult negative -Continue oral Protonix -GI following-appreciate input -We will need outpatient capsule endoscopy PAF/aortic valve stenosis/mechanical mitral valve -Initially was under the impression that she was maintained on her Lovenox and Coumadin however these were held and given the abnormal EGD I will restart these and follow her hemoglobin -Restart Coumadin -Restart Lovenox 60 twice daily -Continue home atenolol -TAVR performed on 09/18/2020 -Mechanical mitral valve placement in 09/29/2001 -Goal INR is 2.5-3.5 -Patient will need a follow-up hemoglobin in the next 24 and then again at 48 hours to assess stability of her blood counts Hypertension -Continue atenolol -Continue lisinopril -Blood pressures have overall been good Hyperlipidemia -Continue home statin DM-2 -Continue home metformin -Continue home Lantus -Continue sliding scale -Continue Accu-Cheks GERD -Continue PPI Vitamin D deficiency -Continue vitamin D supplementation DVT prophylaxis -SCDs -Restart therapeutic Lovenox with Coumadin Disposition: Anticoagulation reinitiated with unremarkable EGD. Hemoglobin has stabilized off anticoagulation. Awaiting pre-CERT. Okay for discharge with repeat hemoglobin in the next 24 and again at 48 hours to reevaluate for stability on anticoagulation. Will need patient capsule endoscopy after discharge.
[2022-10-27] MEDS: Enoxaparin 60 MG/0.6 ML Syringe SC ×2 (16:46→22:29)
--- NOTE | 2022-10-27 17:37 | PCM.PROGNOTE ---
Subjective Subjective Patient underwent upper endoscopy yesterday for acute blood loss anemia. No etiology of blood loss anemia was seen during her upper endoscopy yesterday. Objective Data Objective Data Vital Signs: Vital Signs Temp Pulse Resp BP Pulse Ox O2 Del Method O2 Flow Rate 98.8 F 92 16 110/47 L 95 Room Air 2 10/27/22 15:30 10/27/22 15:30 10/27/22 15:30 10/27/22 15:30 10/27/22 15:30 10/27/22 15:30 10/25/22 14:34 Oxygen Flow Rate (L/min) 2 Oxygen Delivery Method Room Air Weight: 162 lb Body Mass Index (BMI) 29.6 Intake & Output: Intake and Output for Last 24 Hours 10/25/22 10/26/22 10/27/22 23:59 23:59 23:59 Intake Total 921.75 / 921.75 Output Total 1200 / 1400 1050 / 1050 Balance -278.25 / -478.25 -1050 / -1050 Lab / Micro Data Result Diagrams: 10/27/22 06:17 10/27/22 06:17 Labs: Laboratory Results - last 24 hr 10/26/22 21:56: POC Glucose 262 H 10/27/22 06:17: WBC 9.2, RBC 2.92 L, Hgb 8.7 L, Hct 27.9 L, MCV 95.5, MCH 29.8, MCHC 31.2 L, RDW Std Deviation 53.2 H, RDW Coeff of Tk 15.2 H, Plt Count 326, MPV 10.3, Immature Gran % (Auto) 1.400 H, Neut % (Auto) 79.5 H, Lymph % (Auto) 7.3 L, [place] % (Auto) 8.5, Eos % (Auto) 2.8, Baso % (Auto) 0.5, Absolute Neuts (auto) 7.3, Absolute Lymphs (auto) 0.67 L, Nucleated RBC % 0.2 10/27/22 06:17: Sodium 135 L, Potassium 4.6, Chloride 102, Carbon Dioxide 28.0, Anion Gap 5, BUN 16, Creatinine 0.51 L, Estim Creat Clear Calc 39.04, Est GFR (MDRD) Af Amer 152, Est GFR (MDRD) Non-Af 126, BUN/Creatinine Ratio 31.6 H, Glucose 185 H, Calcium 9.3 10/27/22 06:17: PT 19.1 H, INR 1.6 Micro: Microbiology 10/16/22 13:58 Swab (Method) Nasal Screen MRSA/MSSA - Final Physical Exam Const alert, oriented x3, no apparent distress and well nourished General Appearance: cooperative HEENT normocephalic, head/scalp atraumatic and moist oral mucous membranes Eyes PERRL and EOMs intact bilaterally Neck no lymphadenopathy and supple Lymph Lymphatic: no lymphadenopathy noted and no lymphedema noted Resp normal respiratory effort, normal air movement, no retractions, no use of accessory muscles and clear to auscultation bilaterally Auscultation: Negative for rales, rhonchi or wheezes Cardio regular rate, S1 normal heart sound, S2 normal heart sound, no murmurs, no rub and no gallops; Negative for regular rhythm or no clicks Cardio Narrative: Positive click from mechanical mitral valve, rhythm is irregularly irregular with a regular rate GI normal to inspection, nondistended, normoactive bowel sounds, soft to palpation, non-tender and non-distended Extremity normal capillary refill, no clubbing, cyanosis or edema and no calf tenderness Extremity Narrative: 2+ pedal pulses Skin Skin Narrative: Postoperative dressing intact, clean and dry General Skin Exam: no breakdown Neuro oriented x3, CN's II-XII intact bilaterally, moves all extremities, no focal motor deficits and no sensory deficits noted Speech: speech normal Motor Exam: strength 5/5 throughout Psych thought process normal and affect normal Psych Narrative: Very pleasant Appearance: appropriate Assessment & Plan Assessment/Plan (1) Anemia: PLAN: I am not sure of the etiology of her anemia. I am not suspecting that she had GI blood loss due to the fact that she did have a normal upper endoscopy and a recent normal colonoscopy without any signs or symptoms of blood from her GI tract. However there is a possibility of a slow GI bleed in the small intestines and she is at risk for angiodysplasias secondary to her history of aortic valve and mitral valve replacement. Recommend to repeat hemoglobin. Check iron studies and give iron transfusion if ferritin is less than 50. She can have a capsule endoscopy as an outpatient. We will continue to follow while she is in the hospital. Charges/Coding Visit Charges Inpatient E&M: 10331 Subs Hosp L2
[2022-10-27] MEDS: DiphenhydrAMINE 25 MG Capsule 50 MG PO (22:27)
[2022-10-27] MEDS: Insulin Glargine-YFGN 100 UNIT/ML Pen 40 UNIT SC (22:27)
[2022-10-27] MEDS: Atorvastatin Calcium 40 MG Tablet PO (22:29)
[2022-10-27 23:21] LABS: Bedside Glucose 278 mg/dL (74-106)
[2022-10-28] MEDS: traMADol 50 MG Tablet PO (02:26)
[2022-10-28 02:27] VITALS: BP 136/54; PULSE 96; RESP 16; TEMP 36.7; O2SAT 97
[2022-10-28 06:14] LABS: Absolute Lymphocyte Count 0.82 X10^3/uL (0.83-4.51); Absolute Neutrophil Count 6.9 X10^3/uL (2.0-7.7); Basophil# 0.05 X10^3/uL; Basophil% 0.6 % (0-1); Eosinophil# 0.09 X10^3/uL; Hematocrit 27.4 % (37-47); Hemoglobin 8.7 g/dL (12.0-15.0); Lymphocyte # 0.82 X10^3/ul (0.83-4.51); Lymphocyte % 9.2 % (19-41); Mean Corp Hgb Conc 31.8 g/dL (32-36); Mean Corpuscular Hgb 29.9 pg (27.0-32.0); Mean Corpuscular Volume 94.2 fL (81-99); Monocyte# 0.74 X10^3/uL; Monocyte% 8.3 % (0-10); NRBC Flagged by Analyzer 0 % (0-5); Neutrophil % 77.5 % (47-70); Platelet Count 398 K/mm3 (150-450); RBC Distribution Width CV 14.6 % (11.6-14.6); RBC Distribution Width SD 50.1 fl (35.1-43.9); Red Blood Count 2.91 M/mm3 (4.2-5.4); White Blood Count 8.9 K/mm3 (4.4-11.0)
[2022-10-28] MEDS: Acetaminophen 500 MG Tablet 1000 MG PO ×2 (06:15→14:06)
[2022-10-28] MEDS: Gemfibrozil 600 MG Tablet PO (06:15)
[2022-10-28 06:24] LABS: International Normalized Ratio 1.6; Prothrombin Time (Protime)PT. 18.6 SECONDS (11.7-14.9)
[2022-10-28 06:42] LABS: Anion Gap 7 (5-15); BUN 14 mg/dL (7-18); Calcium,Total 9.4 mg/dL (8.5-10.1); Chloride 104 mmol/L (98-107); Creatinine, Serum 0.45 mg/dL (0.55-1.02); EST Glomerular Filtration Rate 144 mL/min (>60); Est Glom Filt Rate - Afr Amer 174 mL/min (>60); Estimated Creatinine Clearance 39.04 ml/min; Glucose 172 mg/dL (74-106); Potassium 3.8 mmol/L (3.5-5.1); Sodium Level 138 mmol/L (136-145)
--- NOTE | 2022-10-28 08:27 | CASEMGMT ---
Addendum entered by Rachel Lindsay 10/28/22 10:49: PATRICIA notified pt and pt family of discharge to [facility] today. PATRICIA completed 7000 convalescent form in [facility]. Set up cot transportation through [facility] for 2:00 pm. PATRICIA faxed all discharge orders to [facility] via [facility] and notified of discharge time. PATRICIA notified pt nurse of transport time. PATRICIA made copies of discharge orders and placed on pt chart. Sent original orders in envelope with pt upon discharge.?? Disposition: [facility], skilled, convalescent, level of care? ADRIENNE Cordero? ? Addendum entered by Rachel Lindsay 10/28/22 10:36: Rosemarie from [facility] called to inform precert has been obtained. PATRICIA notified pt and VLADISLAV Powell. Pt will d/c today. PATRICIA notified pt nurse of need for covid. Original Note: Social Work PATRICIA called Rosemarie Long at [facility] to inquire about precert. PATRICIA left message for Rosemarie asking for a return call and left contact information. PLAN: [facility], pending precert ADRIENNE Cordero
[2022-10-28 08:30] VITALS: BP 149/92; PULSE 97; RESP 16; TEMP 36.9; O2SAT 97
[2022-10-28] MEDS: Senna/Docusate Sodium 1 Tablet 2 TABLET PO (09:11)
[2022-10-28] MEDS: Cholecalciferol (VIT D3) 25 MCG TABLET (1,000 UNITS) 50 MCG PO (09:12)
[2022-10-28] MEDS: metFORMIN HCl 500 MG Tablet 2000 MG PO (09:12)
[2022-10-28] MEDS: Atenolol 50 MG Tablet PO (09:12)
[2022-10-28] MEDS: Lisinopril 20 MG Tablet 40 MG PO (09:12)
[2022-10-28] MEDS: Enoxaparin 60 MG/0.6 ML Syringe SC (09:12)
[2022-10-28] MEDS: Ferrous Sulfate 325 MG Tablet PO (09:12)
[2022-10-28] MEDS: Pantoprazole Sodium 40 MG Tablet PO (09:12)
--- NOTE | 2022-10-28 10:04 | PCM.PN.ORT ---
Subjective Subjective Patient doing well. Denies chest pain, shortness of breath, calf pain, nausea vomiting. Patient ready for discharge to [facility] to continue her physical therapy. No other complaints at this time. Objective Data Objective Data Vital Signs: Vital Signs Temp Pulse Resp BP Pulse Ox O2 Del Method O2 Flow Rate 98.5 F 97 16 149/92 H 97 Room Air 2 10/28/22 08:30 10/28/22 08:30 10/28/22 08:30 10/28/22 08:30 10/28/22 08:30 10/28/22 08:30 10/25/22 14:34 Oxygen Flow Rate (L/min) 2 Oxygen Delivery Method Room Air Weight: 73.482 kg Body Mass Index (BMI) 29.6 Intake & Output: Intake and Output for Last 24 Hours 10/26/22 10/27/22 10/28/22 23:59 23:59 23:59 Intake Total 921.75 / 921.75 Output Total 1200 / 1400 1050 / 1050 Balance -278.25 / -478.25 -1050 / -1050 Lab / Micro Data Result Diagrams: 10/28/22 05:55 10/28/22 05:55 Labs: Laboratory Results - last 24 hr 10/27/22 22:25: POC Glucose 278 H 10/28/22 05:55: WBC 8.9, RBC 2.91 L, Hgb 8.7 L, Hct 27.4 L, MCV 94.2, MCH 29.9, MCHC 31.8 L, RDW Std Deviation 50.1 H, RDW Coeff of Tk 14.6, Plt Count 398, MPV 10.0, Immature Gran % (Auto) 3.400 H, Neut % (Auto) 77.5 H, Lymph % (Auto) 9.2 L, [place] % (Auto) 8.3, Eos % (Auto) 1.0, Baso % (Auto) 0.6, Absolute Neuts (auto) 6.9, Absolute Lymphs (auto) 0.82 L, Nucleated RBC % 0 10/28/22 05:55: Sodium 138, Potassium 3.8, Chloride 104, Carbon Dioxide 27.0, Anion Gap 7, BUN 14, Creatinine 0.45 L, Estim Creat Clear Calc 39.04, Est GFR (MDRD) Af Amer 174, Est GFR (MDRD) Non-Af 144, BUN/Creatinine Ratio 31.0 H, Glucose 172 H, Calcium 9.4 10/28/22 05:55: PT 18.6 H, INR 1.6 Micro: Microbiology 10/27/22 19:45 Stool Stool Occult Blood (JUDY) - Final 10/16/22 13:58 Swab (Method) Nasal Screen MRSA/MSSA - Final Physical Exam Narrative Exam, patient no respiratory distress speaking in full sentences. Full range of motion of the upper extremities without limitations. The hip is cool to touch nonerythematous without ecchymosis. The dressing is clean dry intact. Patient's thigh is nontender and soft as well as the gluteal region. Good flexion-extension of bilateral knees ankles and feet. No calf tenderness. Neurovascular is otherwise intact. Const alert and oriented x3 General Appearance: cooperative HEENT normocephalic Eyes PERRL Extremity normal capillary refill Neuro CN's II-XII intact bilaterally Psych mental status grossly normal and affect normal Assessment & Plan Assessment/Plan (1) S/P total left hip arthroplasty: PLAN: 1. Continue all pain medications as prescribed 2. Per medicine patient will resume her Lovenox Coumadin as directed by her primary care preoperatively 3. Encourage incentive spirometry 4. Discharge to ECF today when cleared by insurance 5. As per medicine patient will obtain a CBC in 24 hours a CBC in 48 hours. 6. Repeat PT/INR on 10/30/2022 7. Remove bharati 11/04/2022 8. Replace dressing prior to discharge to ECF 9. Follow-up with Dr. Weston as scheduled 10. Patient can shower 10/28/2022 11. Weight-bear as tolerated with walker.
--- NOTE | 2022-10-28 10:06 | PCM.DC.SUM ---
Providers Date of Admission: 10/22/22 Date of Discharge: 10/28/22 Primary Care Physician: Dr. Gwen David MD Consultations 10/22/22 06:37 Consult: Hospitalist Routine Consulting Provider: Adam Tate Reason for Consult: anemia EMERGENT Consult: No Notified: Yes Date Notified: 10/22/22 Time Notified: 06:37 Method of Notification: Text 10/24/22 09:53 Consult: Gastroenterology Routine Consulting Provider: [facility] Reason for Consult: iron deficiency anemia EMERGENT Consult: No Notified: Yes Date Notified: 10/24/22 Time Notified: 09:54 Method of Notification: Text Reason For Visit: LT TOTAL HIP Diagnosis Discharge Diagnosis (1) S/P total left hip arthroplasty: Status: Acute Code(s): Z96.642 - Presence of left artificial hip joint Plan: 1. Continue all pain medications as prescribed 2. Per medicine patient will resume her Lovenox Coumadin as directed by her primary care preoperatively 3. Encourage incentive spirometry 4. Discharge to ECF today when cleared by insurance 5. As per medicine patient will obtain a CBC in 24 hours a CBC in 48 hours. 6. Repeat PT/INR on 10/30/2022 7. Remove bharati 11/04/2022 8. Replace dressing prior to discharge to F 9. Follow-up with Dr. Weston as scheduled 10. Patient can shower 10/28/2022 11. Weight-bear as tolerated with walker. Medications at Discharge Home Medications gemfibrozil 600 mg tablet (Lopid) 600 mg PO BIDAC 07/10/13 atorvastatin 40 mg tablet 40 mg PO QDAY 12/21/17 metformin 500 mg tablet 2,000 mg PO DAILY 02/08/20 meclizine 12.5 mg tablet 12.5 mg PO TID PRN Dizziness 09/30/20 atenolol 50 mg tablet 50 mg PO DAILY 07/03/21 enoxaparin 60 mg/0.6 mL subcutaneous syringe (Lovenox) 60 mg (0.6 mL) subcut Q12H #6 mL 09/16/22 cholecalciferol (vitamin D3) 50 mcg (2,000 unit) capsule (Vitamin D3) 50 mcg PO DAILY 10/14/22 diphenhydramine HCl 25 mg capsule (Benadryl) 50 mg PO QHS 10/14/22 insulin glargine U-300 conc 300 unit/mL (3 mL) subcutaneous pen (Toujeo Max U-300 SoloStar) 40 unit subcut QHS 10/14/22 lisinopril 20 mg tablet 40 mg PO DAILY 10/14/22 omeprazole 20 mg tablet,delayed release 40 mg PO QHS 10/14/22 warfarin 3 mg tablet 2.5 mg PO MOWEFR 10/14/22 warfarin 5 mg tablet 5 mg PO SUTUTHSA 10/14/22 acetaminophen 500 mg tablet 1,000 mg PO Q8 30 days #180 tabs 10/23/22 ferrous sulfate 325 mg (65 mg iron) tablet (FeroSul) 325 mg PO 1200,1700 #60 tabs 10/23/22 oxycodone 5 mg tablet 5 - 10 mg PO Q4H PRN PRN Pain Score 4-10 7 days #60 tabs 10/23/22 sennosides 8.6 mg-docusate sodium 50 mg tablet (Stool Softener-Stimulant Laxative) 2 tab PO BID PRN constipation #14 tabs 10/23/22 Hospital Course Operations total hip replacement Procedures Blood transfusion Summary of Care Provided Minutes Spent on Discharge: 30 Physical Exam Narrative Exam, patient is alert oriented. No respiratory distress. Moving extremities purposefully. The incision of the left hip is clean dry intact. The thigh is cool to touch nonerythematous and soft. No tenderness palpation through the quad hamstring region, or gluteal region of the left hip. No calf tenderness. Good flexion-extension of bilateral knees ankles and feet. Neurovascular is otherwise intact. Const alert and oriented x3 General Appearance: cooperative and comfortable HEENT normocephalic Eyes PERRL General Eye: normal appearance of both eyes Pupil: PERRL Neck full ROM Extremity normal to inspection Skin no rashes or lesions noted Neuro oriented x3 and CN's II-XII intact bilaterally Motor Exam: strength 5/5 throughout Psych mental status grossly normal, thought process normal, cooperative, affect normal and speech normal Appearance: grossly normal Weight / BMI Weight Weight: 73.482 kg Body Mass Index (BMI) 29.6 ABG / Lab / Microbiology Data Result Diagrams: 10/28/22 05:55 10/28/22 05:55 Laboratory: Laboratory Results - last 24 hr 10/27/22 22:25: POC Glucose 278 H 10/28/22 05:55: WBC 8.9, RBC 2.91 L, Hgb 8.7 L, Hct 27.4 L, MCV 94.2, MCH 29.9, MCHC 31.8 L, RDW Std Deviation 50.1 H, RDW Coeff of Tk 14.6, Plt Count 398, MPV 10.0, Immature Gran % (Auto) 3.400 H, Neut % (Auto) 77.5 H, Lymph % (Auto) 9.2 L, [place] % (Auto) 8.3, Eos % (Auto) 1.0, Baso % (Auto) 0.6, Absolute Neuts (auto) 6.9, Absolute Lymphs (auto) 0.82 L, Nucleated RBC % 0 10/28/22 05:55: Sodium 138, Potassium 3.8, Chloride 104, Carbon Dioxide 27.0, Anion Gap 7, BUN 14, Creatinine 0.45 L, Estim Creat Clear Calc 39.04, Est GFR (MDRD) Af Amer 174, Est GFR (MDRD) Non-Af 144, BUN/Creatinine Ratio 31.0 H, Glucose 172 H, Calcium 9.4 10/28/22 05:55: PT 18.6 H, INR 1.6 Microbiology: Microbiology 10/27/22 19:45 Stool Stool Occult Blood (JUDY) - Final 10/16/22 13:58 Swab (Method) Nasal Screen MRSA/MSSA - Final D/C Instructions Discharge Diet: No restrictions May shower in (days): 2 May resume sexual activity in: No Restrictions Ice area for (Minutes): 30 Weight Bearing Status: Weight bearing as tolerated Keep extremity elevated above heart level: Left Leg Call your doctor if your incision/area has: Continuous Slow Oozing, Sudden Increased Bleeding, Increased Pain/ Swelling, Increased Redness, Foul Smelling Discharge and Swelling at the incision site Call your doctor if you observe: Fever of 101 or Higher Please Follow Up With: Jonathan Powell PA-C When: As scheduled Meaningful Use Info Meaningful Use Diagnoses (Choose all that apply): None applicable Discharge Plan Admission Admit Date/Time: 10/22/22 11:36 Primary Reason for Your Visit: Left total hip arthroplasty Attending Provider: Konstantin Weston Primary Care Provider: Gwen David Consulting Providers: Monique Angel Instructions Additional Instructions / Restrictions: 1. Please repeat Hgb in 24 and again in 48 hrs to assess for stability 2. Please call Dr. Cantrell's office in the next 24 to 48 hours to set up a capsule endoscopy to be done as an outpatient Discharge Orders/Prescriptions Prescriptions: New oxycodone 5 mg Tablet 5 - 10 mg PO Q4H PRN PRN (Reason: Pain Score 4-10) 7 Days Qty: 60 0RF sennosides-docusate sodium [Stool Softener-Stimulant Laxat] 8.6-50 mg Tablet 2 tab PO BID PRN (Reason: constipation) Qty: 14 0RF acetaminophen 500 mg Tablet 1,000 mg PO Q8 30 Days Qty: 180 0RF ferrous sulfate [FeroSul] 325 mg (65 mg iron) Tablet 325 mg PO 1200,1700 Qty: 60 2RF Continued atorvastatin 40 mg tablet 40 mg PO QDAY metformin 500 mg tablet 2,000 mg PO DAILY atenolol 50 mg tablet 50 mg PO DAILY gemfibrozil [Lopid] 600 MG tablet 600 mg PO BIDAC diphenhydramine HCl [Benadryl] 25 mg Capsule 50 mg PO QHS cholecalciferol (vitamin D3) [Vitamin D3] 50 mcg (2,000 unit) Capsule 50 mcg PO DAILY Toujeo Max U-300 SoloStar 300 unit/mL (3 mL) Insulin Pen 40 unit SUBCUT QHS lisinopril 20 mg tablet 40 mg PO DAILY warfarin 3 mg tablet 2.5 mg PO WE warfarin 5 mg tablet 5 mg PO [facility] Protocol: Dose Management Condition: Wednesday Dose/Route: 5 mg Instruction: 1 x 5 mg tablet Condition: Wednesday Dose/Route: 7.5 mg Instruction: 1.5 x 5 mg tablets Condition: Wednesday Dose/Route: 7.5 mg Instruction: 1.5 x 5 mg tablets Condition: Wednesday Dose/Route: 5 mg Instruction: 1 x 5 mg tablet Condition: Dose/Route: 5 mg Instruction: 1 x 5 mg tablet Condition: Wednesday Dose/Route: 5 mg Instruction: 1 x 5 mg tablet Condition: Wednesday Dose/Route: 5 mg Instruction: 1 x 5 mg tablet Protocol Text: Adjustment Start Date: Wednesday08/13/20 INR Value: 2.90 INR Date: 07/31/20 omeprazole 20 mg Tablet,Delayed Release (Dr/Ec) 40 mg PO QHS meclizine 12.5 mg tablet 12.5 mg PO TID PRN (Reason: Dizziness) enoxaparin [Lovenox] 60 mg/0.6 mL syringe 60 mg subcut Q12H Qty: 6 1RF Discontinued acetaminophen 325 MG tablet 650 mg PO Q6H PRN PRN (Reason: FEVER) 0RF Referrals / Follow Up: Gwen David MD [Primary Care Provider] - Within 1 Week FriendDonaldo DO [Med Staff - Active Staff] - See Referral Note (call office yasir to get referral for capsule endoscopy)
[2022-10-28 10:51] VITALS: O2SAT 97
[2022-10-28 11:21] VITALS: O2SAT 97
--- NOTE | 2022-10-28 11:21 | PN.HOSP_ITS ---
Reason for Visit Reason for Visit: Left hip osteoarthritis Subjective Subjective Patient did well overnight. No issues. Hemoglobin has been stable. Patient is having bowel movements but no signs of acute bleeding. Hemoglobin is stable despite the reinitiation yesterday of her Lovenox and Coumadin. Objective Data Objective Data Vital Signs: Vital Signs Temp Pulse Resp BP Pulse Ox O2 Del Method O2 Flow Rate 98.5 F 97 16 149/92 H 97 Room Air 2 10/28/22 08:30 10/28/22 08:30 10/28/22 08:30 10/28/22 08:30 10/28/22 08:30 10/28/22 08:30 10/25/22 14:34 Oxygen Flow Rate (L/min) 2 Oxygen Delivery Method Room Air Weight: 73.482 kg Body Mass Index (BMI) 29.6 Intake & Output: Intake and Output for Last 24 Hours 10/26/22 10/27/22 10/28/22 23:59 23:59 23:59 Intake Total 921.75 / 921.75 Output Total 1200 / 1400 1050 / 1050 Balance -278.25 / -478.25 -1050 / -1050 Lab / Micro Data Result Diagrams: 10/28/22 05:55 10/28/22 05:55 Labs: Laboratory Results - last 24 hr 10/27/22 22:25: POC Glucose 278 H 10/28/22 05:55: WBC 8.9, RBC 2.91 L, Hgb 8.7 L, Hct 27.4 L, MCV 94.2, MCH 29.9, MCHC 31.8 L, RDW Std Deviation 50.1 H, RDW Coeff of Tk 14.6, Plt Count 398, MPV 10.0, Immature Gran % (Auto) 3.400 H, Neut % (Auto) 77.5 H, Lymph % (Auto) 9.2 L , [place] % (Auto) 8.3, Eos % (Auto) 1.0, Baso % (Auto) 0.6, Absolute Neuts (auto) 6.9, Absolute Lymphs (auto) 0.82 L, Nucleated RBC % 0 10/28/22 05:55: Sodium 138, Potassium 3.8, Chloride 104, Carbon Dioxide 27.0, Anion Gap 7, BUN 14, Creatinine 0.45 L, Estim Creat Clear Calc 39.04, Est GFR (MDRD) Af Amer 174, Est GFR (MDRD) Non-Af 144, BUN/Creatinine Ratio 31.0 H, Glucose 172 H, Calcium 9.4 10/28/22 05:55: PT 18.6 H, INR 1.6 Micro: Microbiology 10/28/22 10:25 Nasal Secretion SARS-CoV-2 Antigen (Rapid) - Final 10/27/22 19:45 Stool Stool Occult Blood (JUDY) - Final 10/16/22 13:58 Swab (Method) Nasal Screen MRSA/MSSA - Final Physical Exam Const alert, oriented x3, no apparent distress and well nourished Constitutional Narrative: Older white female, up in a chair at the bedside, appears comfortable nontoxic General Appearance: cooperative HEENT normocephalic, head/scalp atraumatic and moist oral mucous membranes Resp normal respiratory effort, normal air movement, no retractions, no use of accessory muscles and clear to auscultation bilaterally Auscultation: Negative for rales, rhonchi or wheezes Cardio regular rate, S1 normal heart sound, S2 normal heart sound, no murmurs, no rub and no gallops; Negative for regular rhythm or no clicks Cardio Narrative: Positive click from mechanical mitral valve, rhythm is irregularly irregular with a regular rate GI normal to inspection, nondistended, normoactive bowel sounds, soft to palpation, non-tender and non-distended Extremity no clubbing, cyanosis or edema Extremity Narrative: 2+ pedal pulses Skin Skin Narrative: Postoperative dressing intact, clean and dry Neuro oriented x3, moves all extremities and no focal motor deficits Speech: speech normal Psych affect normal Psych Narrative: Very pleasant Assessment & Plan Assessment/Plan (1) Anemia: (2) S/P total left hip arthroplasty: PLAN: Plan Left hip osteoarthritis -Postop day 6 left total hip arthroplasty -Pain management per primary service -PT/OT -Bowel regimen as ordered -Seems to be progressing well Acute anemia -Initially was felt to be to be postop losses however only approximately 50 cc were lost during surgery -Baseline hemoglobin per orthopedic surgery's records is approximately 13.6 on 09/17/2022 -Hemoglobin has trended down to as low as 5.8. -Has been transfused a total of 4 units packed red blood cells--> hemoglobin is stable despite reinitiation of full anticoagulation with Lovenox and Coumadin -CTA of the abdomen pelvis was unrevealing -Patient does require chronic anticoagulation due to paroxysmal atrial fibrillation and history of mechanical mitral valve -EGD unremarkable and recent colonoscopy that was unremarkable -Will need capsule endoscopy after discharge -Continue iron supplementation at discharge as iron studies were consistent with iron deficiency -Stool was occult negative -Continue oral Protonix -GI following-appreciate input -We will need outpatient capsule endoscopy PAF/aortic valve stenosis/mechanical mitral valve -Initially was under the impression that she was maintained on her Lovenox and Coumadin however these were held and given the abnormal EGD I will restart these and follow her hemoglobin -Continue Coumadin as ordered -Continue Lovenox as ordered -Continue home atenolol -TAVR performed on 09/18/2020 -Mechanical mitral valve placement in 09/29/2001 -Goal INR is 2.5-3.5 -Patient will need a follow-up hemoglobin in the next 24 and then again at 48 hours to assess stability of her blood counts -We will need to continue Lovenox until Coumadin is therapeutic at above INR goal Hypertension -Continue atenolol -Continue lisinopril -Blood pressures have overall been good Hyperlipidemia -Continue home statin DM-2 -Continue home metformin -Continue home Lantus -Continue sliding scale -Continue Accu-Cheks GERD -Continue PPI Vitamin D deficiency -Continue vitamin D supplementation DVT prophylaxis -SCDs -Continue therapeutic Lovenox and Coumadin Disposition: Patient has been approved for discharge and is medically stable. Again recommend repeat hemoglobin in 24 and again at 48 hours since patient is fully anticoagulated given the fact we have not found an etiology for her acute blood loss. Outpatient capsule endoscopy and patient to call Dr. Cantrell to have this arranged after discharge. Charges/Coding Visit Charges Inpatient E&M: 56907 Subs Hosp L2
[2022-10-28 14:30] VITALS: BP 135/72; PULSE 95; RESP 16; TEMP 36.7; O2SAT 98
--- NOTE | 2022-10-28 14:50 | PHA.DC.MR ---
Pharmacy Service has performed discharge medication reconciliation for this patient. The patient's discharge medication list was reviewed for discrepancies and discrepancies were resolved. Home Medications gemfibrozil 600 mg tablet (Lopid) 600 mg PO BIDAC 07/10/13 atorvastatin 40 mg tablet 40 mg PO QDAY 12/21/17 metformin 500 mg tablet 2,000 mg PO DAILY 02/08/20 meclizine 12.5 mg tablet 12.5 mg PO TID PRN Dizziness 09/30/20 atenolol 50 mg tablet 50 mg PO DAILY 07/03/21 enoxaparin 60 mg/0.6 mL subcutaneous syringe (Lovenox) 60 mg (0.6 mL) subcut Q12H #6 mL 09/16/22 cholecalciferol (vitamin D3) 50 mcg (2,000 unit) capsule (Vitamin D3) 50 mcg PO DAILY 10/14/22 diphenhydramine HCl 25 mg capsule (Benadryl) 50 mg PO QHS 10/14/22 insulin glargine U-300 conc 300 unit/mL (3 mL) subcutaneous pen (Toujeo Max U-300 SoloStar) 40 unit subcut QHS 10/14/22 lisinopril 20 mg tablet 40 mg PO DAILY 10/14/22 omeprazole 20 mg tablet,delayed release 40 mg PO QHS 10/14/22 warfarin 3 mg tablet 2.5 mg PO MOWEFR 10/14/22 warfarin 5 mg tablet 5 mg PO SUTUTHSA 10/14/22 acetaminophen 500 mg tablet 1,000 mg PO Q8 30 days #180 tabs 10/23/22 ferrous sulfate 325 mg (65 mg iron) tablet (FeroSul) 325 mg PO 1200,1700 #60 tabs 10/23/22 oxycodone 5 mg tablet 5 - 10 mg PO Q4H PRN PRN Pain Score 4-10 7 days #60 tabs 10/23/22 sennosides 8.6 mg-docusate sodium 50 mg tablet (Stool Softener-Stimulant Laxative) 2 tab PO BID PRN constipation #14 tabs 10/23/22
== END 2022-10-28 15:40 | disposition skilled nursing facility (03) | DRG 470 ==
LOC: SDC 14:18 → MS3 14:18
PROVIDERS: Anesthesiology; Family Medicine; Internal Medicine; Internal Medicine Gastroenterology; Student in an Organized Health Care Education/Training Program; Admitting Provider Orthopaedic Surgery; PCP Internal Medicine; Referring Provider Orthopaedic Surgery; Visit Provider Orthopaedic Surgery
PROC: 0SRB0JZ Replacement of Left Hip Joint with Synthetic Substitute, Open Approach (ICD-10-PCS; CPT 27130; principal; 2022-10-21 07:35)
PROC: 0DJ08ZZ Inspection of Upper Intestinal Tract, Via Natural or Artificial Opening Endoscopic (ICD-10-PCS; CPT 43235; principal; 2022-10-26 13:10)
DX: M16.52 Unilateral post-traumatic osteoarthritis, left hip (principal); D62 Acute posthemorrhagic anemia; E11.9 Type 2 diabetes mellitus without complications; I48.0 Paroxysmal atrial fibrillation; Z79.4 Long term (current) use of insulin; E55.9 Vitamin D deficiency, unspecified; I10 Essential (primary) hypertension; I35.0 Nonrheumatic aortic (valve) stenosis; I25.10 Atherosclerotic heart disease of native coronary artery without angina pectoris; E78.00 Pure hypercholesterolemia, unspecified; K21.9 Gastro-esophageal reflux disease without esophagitis; I44.7 Left bundle-branch block, unspecified; E66.8 Other obesity; X58.XXXA Exposure to other specified factors, initial encounter; Z68.29 Body mass index [BMI] 29.0-29.9, adult; Z95.2 Presence of prosthetic heart valve; Z79.01 Long term (current) use of anticoagulants; Z79.84 Long term (current) use of oral hypoglycemic drugs; Z79.899 Other long term (current) drug therapy; Z87.891 Personal history of nicotine dependence
CPT/HCPCS: 36415; 36416; 73502; 74174; 80048; 80076; 82274; 82607; 82728; 82746; 82962; 83540; 83550; 83735; 85018; 85025; 85027; 85610; 85730; 86850; 86900; 86901; 86920; 86922; 87081; 87426; 88305; 88311; 94668; 97110; 97116; 97162; 97166; 97530; 97535; 99252; C1776; J7030; J7040; J7120; P9016; Q9967; A4216; G0463; J1940; J2405

== ENCOUNTER 2022-11-26 13:03 | Emergency (ER) | payer MEDICARE, SELFPAY ==
[2020-12-04 07:04] VITALS: BMI 27.6
[2022-11-26 13:04] VITALS: BP 128/63; PULSE 96; RESP 16; TEMP 37.1; O2SAT 98
[2022-11-26 13:06] VITALS: BP 128/62; PULSE 92; RESP 18; TEMP 36.6; O2SAT 96
[2022-11-26 13:44] VITALS: BMI 23.0
--- NOTE | 2022-11-26 13:51 | EX.ED.DYSGE1 ---
HPI History of Present Illness Chief Complaint: Abn Labs Informant: patient Narrative Narrative: Patient states she was sent in by home health because of a [id number] INR that was done at her home that was 10. She has mechanical mitral valve and is on warfarin because of that. She denies bleeding from anywhere that she has seen including urination or bowels, but on further questioning, she has had some black tarry stools recently. She has also had a couple episodes of nausea but has had no vomiting or taste of blood in her mouth. She denies bleeding from anywhere else that she has seen. She has had some trouble urinating in the last 3 weeks, she states it feels like she needs to go and she has trouble getting it out. She states she had surgery about 6 weeks ago on her left hip. She states that is doing well and she has been able to get around on it now even without a walker at times. She denies any fevers or chills, she states that her home health nurse sent a urinalysis about 5 or 6 days ago, she has not yet heard about the results. [facility] Medical History Abnormal electrocardiogram Abrasion Alcohol use Anemia Angina at rest Arthritis Atherosclerotic heart disease of [place] coronary artery without angina pectoris Atrial fibrillation Back pain Bacteremia Blood infection Cardiology follow-up encounter Depression Dietary restriction Dyslipidemia Encounter for long-term current use of high risk medication Essential hypertension Former smoker Gastric reflux High cholesterol History of atrial fibrillation History of echocardiogram History of hiatal hernia History of irregular heartbeat History of pain when walking History of renal disease History of stress test Hx of fracture of arm Hx of uterine prolapse Hypertension Insulin dependent diabetes mellitus Leg cramps Loss of hearing Mitral valve disorder Murmur, functional Nonrheumatic aortic (valve) stenosis Palpitations Paroxysmal atrial fibrillation Paroxysmal ventricular tachycardia Post-menopausal Premature atrial contraction Premature ventricular contraction Restless legs Shortness of breath on exertion SIRS (systemic inflammatory response syndrome) Type 2 diabetes mellitus Ventricular tachycardia Vertigo Wears glasses Wears partial dentures Home Medications gemfibrozil 600 mg tablet (Lopid) 600 mg PO BIDAC 07/10/13 [History Last Taken 10/20/22] atorvastatin 40 mg tablet 40 mg PO QDAY 12/21/17 [History Last Taken 10/20/22] metformin 500 mg tablet 2,000 mg PO DAILY 02/08/20 [History Last Taken 10/20/22] meclizine 12.5 mg tablet 12.5 mg PO TID PRN Dizziness 09/30/20 [History Last Taken 10/20/22] atenolol 50 mg tablet 50 mg PO DAILY 07/03/21 [History Last Taken 10/21/22 05:30] enoxaparin 60 mg/0.6 mL subcutaneous syringe (Lovenox) 60 mg (0.6 mL) subcut Q12H #6 mL 09/16/22 [Rx Last Taken 10/21/22 05:30] cholecalciferol (vitamin D3) 50 mcg (2,000 unit) capsule (Vitamin D3) 50 mcg PO DAILY 10/14/22 [History Last Taken 10/20/22] diphenhydramine HCl 25 mg capsule (Benadryl) 50 mg PO QHS 10/14/22 [History Last Taken 10/20/22] insulin glargine U-300 conc 300 unit/mL (3 mL) subcutaneous pen (Toujeo Max U-300 SoloStar) 40 unit subcut QHS 10/14/22 [History Last Taken 10/20/22] lisinopril 20 mg tablet 40 mg PO DAILY 10/14/22 [History Last Taken 10/20/22] omeprazole 20 mg tablet,delayed release 40 mg PO QHS 10/14/22 [History Last Taken 10/20/22] warfarin 3 mg tablet 2.5 mg PO MOWEFR 10/14/22 [History Last Taken 10/14/22] warfarin 5 mg tablet 5 mg PO SUTUTHSA 10/14/22 [History Last Taken 10/15/22] acetaminophen 500 mg tablet 1,000 mg PO Q8 30 days #180 tabs 10/23/22 [Rx Last Taken Unknown] ferrous sulfate 325 mg (65 mg iron) tablet (FeroSul) 325 mg PO 1200,1700 #60 tabs 10/23/22 [Rx Last Taken Unknown] oxycodone 5 mg tablet 5 - 10 mg PO Q4H PRN PRN Pain Score 4-10 7 days #60 tabs 10/23/22 [Rx Last Taken Unknown] sennosides 8.6 mg-docusate sodium 50 mg tablet (Stool Softener-Stimulant Laxative) 2 tab PO BID PRN constipation #14 tabs 10/23/22 [Rx Last Taken Unknown] nitrofurantoin monohydrate/macrocrystals 100 mg capsule (Macrobid) 100 mg PO Q12H 7 days #14 caps 11/26/22 [Rx Last Taken Unknown] Allergy/AdvReac Type Severity Reaction Status Date / Time Calcium Channel Blocking Allergy Rash Verified 11/26/22 13:06 Agent Dilt [Calcium Channel Blocking Agents-Win] Family History Mother CAD (coronary artery disease) Brother hyperlipidemia Brother Hypertension Father CAD (coronary artery disease) Surgical History Bioprosthetic mitral valve replacement, current hospitalization History of cardiac catheterization History of left heart catheterization (LHC) (~07/19/20) History of mitral valve replacement with mechanical valve (~09/29/01) Hx of colonoscopy Hx of dilation and curettage Hx of inguinal hernia repair Hx of lithotripsy 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) Social History Smoking Status: Former smoker alcohol intake: never substance use type: does not use caffeine: Yes Type: coffee Number of servings: 1 what type of physical activity do you participate in: walking frequency: daily duration: 15-30 minutes/day seatbelt use: always do you feel safe at home: Yes ROS ROS ED Constitutional Constitutional ED: Denies chills or fever(s) Eyes Eyes: Denies change in vision or diplopia ENT ENT ED: Denies rhinorrhea or sore throat Cardiovascular Cardiovascular: Denies chest pain or palpitations Respiratory/Chest Respiratory/Chest: Denies cough or dyspnea Gastrointestinal Gastrointestinal: Reports melena and nausea; Denies abdominal pain, diarrhea or vomiting Genitourinary Genitourinary ED: Reports as per HPI, decreased urination, difficulty urinating and urinary urgency; Denies dysuria or hematuria Musculoskeletal Musculoskeletal: Denies back pain or neck pain Integumentary Denies abscess or rash Neurologic Neurologic: Denies headache(s), paresthesias or weakness Psychiatric Psychiatric: Denies anxiety or suicidal thoughts EXAM Physical Exam Const Vital Signs: 11/26/22 13:04 04/13/23 13:06 11/26/22 15:42 Temperature 98.8 F 98 F Temperature Source Temporal Temporal Pulse Rate 96 92 66 Respiratory Rate 16 18 14 Blood Pressure 128/63 H 128/62 H 125/58 H Blood Pressure Mean 84 84 80 Pulse Ox 98 96 99 Oxygen Delivery Method Room Air Room Air Room Air Positive well nourished and well developed General Appearance ED: well developed and NAD HEENT Reports moist mucous membranes normocephalic and atraumatic Eyes PERRL and EOMs intact bilaterally Neck full ROM and supple Resp normal respiratory effort and clear to auscultation bilaterally Cardio regular rate and regular rhythm Heart Sounds: click ejection Peripheral Pulses: pulses 2+ throughout GI non-tender and non-distended Auscultation: normoactive bowel sounds Palpation: soft Back/Spine no CVA tenderness General Back: other FROM Extremity normal to inspection General Extremety ED: Negative for edema, pulses abnormal or tenderness General Extremity: Negative for edema or pulses abnormal Neuro oriented x3, CN's II-XII intact bilaterally and no sensory deficits noted Sensorium / Orientation: awake and alert Motor Exam: strength 5/5 throughout Psych mental status grossly normal Skin no rashes or lesions noted and no wounds MDM MDM MDM Narrative Medical decision making narrative: Patient was worked up I repeated her INR, came back at 10.8, and I did a rectal exam, there is light brown nonmelanotic stool that is Hemoccult negative. Her hemoglobin is 10.7, she is not acutely anemic compared with recent values, her BUN is a little elevated but with these other tests being reassuring and no bright red blood in emesis or rectum, this is all consistent with the lack of active GI bleeding. Furthermore, reviewed prior outpatient urinalysis and culture all consistent with infection with greater than 100,000 colony-forming units per mL of E. coli, mostly sensitive. I repeated her urinalysis today it is consistent with infection no need to reculture since she has not been treated, we will start that, she is given vitamin K orally 5 mg according to chest guidelines, which should bring her down less than 5 INR in 24 hours, and she is stable to be discharged home given all of this. I did do a type and screen prior to the results of the labs coming back, but since there is no evidence of active bleeding I do not think she needs a blood transfusion. Patient did hold her Coumadin today, advised to continue holding given appropriate discharge instructions regarding this. History & Record Review Additional record(s) reviewed:: Prior outpatient record and Prior labs Lab Data Attestation: I reviewed the patient's lab results. Labs: Laboratory Results - last 24 hr 11/26/22 11/26/22 11/26/22 13:50 13:55 13:55 WBC 5.4 RBC 3.40 L Hgb 10.7 L Hct 35.8 L MCV 105.3 H MCH 31.5 MCHC 29.9 L RDW Std Deviation 75.8 H RDW Coeff of Tk 19.8 H Plt Count 504 H MPV 10.3 Immature Gran % (Auto) 0.700 Neut % (Auto) 78.1 H Lymph % (Auto) 11.8 L [place] % (Auto) 6.7 Eos % (Auto) 2.0 Baso % (Auto) 0.7 Absolute Neuts (auto) 4.2 Absolute Lymphs (auto) 0.64 L Nucleated RBC % 0 Anisocytosis 2+ PT 84.9 H INR 10.8 H* Sodium Potassium Chloride Carbon Dioxide Anion Gap BUN Creatinine Estim Creat Clear Calc Est GFR (MDRD) Af Amer Est GFR (MDRD) Non-Af BUN/Creatinine Ratio Glucose Calcium Urine Color Brown Urine Clarity Cloudy Urine pH 5.0 Ur Specific [place] 1.020 Urine Protein 100 H Urine Glucose (UA) Normal Urine Ketones 15 H Urine Occult Blood 250 H Urine Nitrite Positive H Urine Bilirubin Negative Urine Urobilinogen Normal Ur Leukocyte Esterase 500 H Urine RBC > 100 SEEN Urine WBC 0-5 SEEN Ur Squamous Epith Cells 0-5 SEEN Urine Bacteria 4+ Urine Mucus 1+ Blood Type Antibody Screen 11/26/22 11/26/22 13:55 13:55 WBC RBC Hgb Hct MCV MCH MCHC RDW Std Deviation RDW Coeff of Tk Plt Count MPV Immature Gran % (Auto) Neut % (Auto) Lymph % (Auto) [place] % (Auto) Eos % (Auto) Baso % (Auto) Absolute Neuts (auto) Absolute Lymphs (auto) Nucleated RBC % Anisocytosis PT INR Sodium 141 Potassium 4.4 Chloride 110 H Carbon Dioxide 21.0 Anion Gap 10 BUN 31 H Creatinine 0.71 Estim Creat Clear Calc 37.24 Est GFR (MDRD) Af Amer 103 Est GFR (MDRD) Non-Af 85 BUN/Creatinine Ratio 43.6 H Glucose 110 H Calcium 10.1 Urine Color Urine Clarity Urine pH Ur Specific [place] Urine Protein Urine Glucose (UA) Urine Ketones Urine Occult Blood Urine Nitrite Urine Bilirubin Urine Urobilinogen Ur Leukocyte Esterase Urine RBC Urine WBC Ur Squamous Epith Cells Urine Bacteria Urine Mucus Blood Type AB POSITIVE Antibody Screen NEGATIVE Management Discussion w/another healthcare provider: PCP (Dr. Aponte, on-call for Dr. David) Discharge Plan Triage Chief Complaint: Abn Labs Other Complaint: Confusion ED Provider: James Dial Dx/Rx/DC Orders Clinical Impression: Supratherapeutic INR, Urinary tract infection Instructions: Urinary Tract Infections in Women Prescriptions: New nitrofurantoin monohyd/m-cryst [Macrobid] 100 mg capsule 100 mg PO Q12H 7 Days Qty: 14 0RF Rx Instructions: must administer with a meal/food No Action atorvastatin 40 mg tablet 40 mg PO QDAY metformin 500 mg tablet 2,000 mg PO DAILY atenolol 50 mg tablet 50 mg PO DAILY gemfibrozil [Lopid] 600 MG tablet 600 mg PO BIDAC diphenhydramine HCl [Benadryl] 25 mg Capsule 50 mg PO QHS cholecalciferol (vitamin D3) [Vitamin D3] 50 mcg (2,000 unit) Capsule 50 mcg PO DAILY Toujeo Max U-300 SoloStar 300 unit/mL (3 mL) Insulin Pen 40 unit SUBCUT QHS lisinopril 20 mg tablet 40 mg PO DAILY warfarin 3 mg tablet 2.5 mg PO warfarin 5 mg tablet 5 mg PO [facility] Protocol: Dose Management Condition: Wednesday Dose/Route: 5 mg Instruction: 1 x 5 mg tablet Condition: Wednesday Dose/Route: 7.5 mg Instruction: 1.5 x 5 mg tablets Condition: Wednesday Dose/Route: 7.5 mg Instruction: 1.5 x 5 mg tablets Condition: Wednesday Dose/Route: 5 mg Instruction: 1 x 5 mg tablet Condition: Dose/Route: 5 mg Instruction: 1 x 5 mg tablet Condition: Wednesday Dose/Route: 5 mg Instruction: 1 x 5 mg tablet Condition: Wednesday Dose/Route: 5 mg Instruction: 1 x 5 mg tablet Protocol Text: Adjustment Start Date: Wednesday08/13/20 INR Value: 2.90 INR Date: 07/31/20 omeprazole 20 mg Tablet,Delayed Release (Dr/Ec) 40 mg PO QHS oxycodone 5 mg Tablet 5 - 10 mg PO Q4H PRN PRN (Reason: Pain Score 4-10) 7 Days Qty: 60 0RF sennosides-docusate sodium [Stool Softener-Stimulant Laxat] 8.6-50 mg Tablet 2 tab PO BID PRN (Reason: constipation) Qty: 14 0RF acetaminophen 500 mg Tablet 1,000 mg PO Q8 30 Days Qty: 180 0RF ferrous sulfate [FeroSul] 325 mg (65 mg iron) Tablet 325 mg PO 1200,1700 Qty: 60 2RF meclizine 12.5 mg tablet 12.5 mg PO TID PRN (Reason: Dizziness) enoxaparin [Lovenox] 60 mg/0.6 mL syringe 60 mg subcut Q12H Qty: 6 1RF Primary Care Provider: Gwen David Referrals: Gwen David MD [Primary Care Provider] - Activity Restrictions/Additional Instructions: Have your INR rechecked on Wednesday at the latest; the doctor's office or your home health nurse may contact you regarding this. Tomorrow Wednesday would be okay as well. Hold your Coumadin until your INR is rechecked, if you are unable to get it rechecked tomorrow Wednesday or throughout the whole weekend, restart it on Wednesday and then get a recheck Wednesday. Disposition Disposition: Home, Self Care
[2022-11-26 14:00] LABS: Color, Urine Brown (Yellow); Glucose, Dipstick Normal (Normal); Ketone-Dipstick 15 mg/dl (Negative); Leukocyte Esterase-Dipstick 500 /ul (Negative); Nitrite-Dipstick Positive (Negative); Occult Blood-Urine 250 /ul (Negative); Protein-Dipstick 100 mg/dl (Negative); Urine Bilirubin Dipstick Negative (Negative); Urine Clarity Cloudy (Clear); Urine Urobilinogen Normal (Normal)
[2022-11-26 14:07] LABS: Absolute Lymphocyte Count 0.64 X10^3/uL (0.83-4.51); Absolute Neutrophil Count 4.2 X10^3/uL (2.0-7.7); Basophil# 0.04 X10^3/uL; Basophil% 0.7 % (0-1); Eosinophil# 0.11 X10^3/uL; Hematocrit 35.8 % (37-47); Hemoglobin 10.7 g/dL (12.0-15.0); Lymphocyte # 0.64 X10^3/ul (0.83-4.51); Lymphocyte % 11.8 % (19-41); Mean Corp Hgb Conc 29.9 g/dL (32-36); Mean Corpuscular Hgb 31.5 pg (27.0-32.0); Mean Corpuscular Volume 105.3 fL (81-99); Mean Platelet Vol. 10.3 fl (6.2-12.0); Monocyte# 0.36 X10^3/uL; Monocyte% 6.7 % (0-10); NRBC Flagged by Analyzer 0 % (0-5); Neutrophil # 4.22 X10^3/uL (2.7-7.7); Neutrophil % 78.1 % (47-70); POSITIVE MORPHOLOGY YES; Platelet Count 504 K/mm3 (150-450); RBC Distribution Width CV 19.8 % (11.6-14.6); RBC Distribution Width SD 75.8 fl (35.1-43.9); White Blood Count 5.4 K/mm3 (4.4-11.0)
[2022-11-26 14:09] LABS: Differential Indicated SCAN CRITERIA MET
[2022-11-26 14:09] LABS: Red Blood Cells-Urine > 100 SEEN /hpf (0-5); Squamous Epithelial Cells - UA 0-5 SEEN /hpf (5-10); White Blood Cells 0-5 SEEN /hpf (0-5)
[2022-11-26 14:10] LABS: Bacteria 4+ /hpf (None Seen); Mucous, Urine 1+ /hpf (<or=2+)
[2022-11-26 14:18] LABS: International Normalized Ratio 10.8; Prothrombin Time (Protime)PT. 84.9 SECONDS (11.7-14.9)
[2022-11-26 14:22] LABS: Anion Gap 10 (5-15); BUN 31 mg/dL (7-18); BUN/Creat Ratio 43.6 RATIO (10-20); Calcium,Total 10.1 mg/dL (8.5-10.1); Chloride 110 mmol/L (98-107); Creatinine, Serum 0.71 mg/dL (0.55-1.02); EST Glomerular Filtration Rate 85 mL/min (>60); Est Glom Filt Rate - Afr Amer 103 mL/min (>60); Estimated Creatinine Clearance 37.24 ml/min; Glucose 110 mg/dL (74-106); Potassium 4.4 mmol/L (3.5-5.1); Sodium Level 141 mmol/L (136-145)
[2022-11-26 14:38] LABS: Anisocytosis 2+
[2022-11-26] MEDS: Nitrofurantoin Macrocrystals 100 MG Capsule PO (15:39)
[2022-11-26] MEDS: Phytonadione (Vit K1) 5 MG TABLET PO (15:39)
[2022-11-26 15:42] VITALS: BP 125/58; PULSE 66; RESP 14; O2SAT 99
== END 2022-11-26 16:40 | disposition home or self-care (01) ==
PROVIDERS: Emergency Provider Emergency Medicine; PCP Internal Medicine; Visit Provider Emergency Medicine
DX: R79.1 Abnormal coagulation profile (principal); N39.0 Urinary tract infection, site not specified; I25.10 Atherosclerotic heart disease of native coronary artery without angina pectoris; Z87.891 Personal history of nicotine dependence; Z79.01 Long term (current) use of anticoagulants
CPT/HCPCS: 80048; 81001; 82274; 85025; 85610; 86850; 86900; 86901; 99284; A4216

== ENCOUNTER 2022-11-30 18:12 | Emergency (ER) | payer MEDICARE, SELFPAY ==
[2020-12-04 07:04] VITALS: BMI 27.6
[2022-11-30 18:13] VITALS: BP 125/57; PULSE 84; RESP 16; TEMP 36.1; O2SAT 99
--- NOTE | 2022-11-30 18:35 | EDS_ITS ---
HPI <VLADISLAV Pagan - Last Filed: 11/30/22 20:00> History of Present Illness Chief Complaint: Abn Labs Narrative Narrative: Patient sent in by home health for [id number] INR at home reading 8.1. She takes warfarin for mechanical mitral valve. She was seen in the ER 3 days ago for similar issue of INR of 10.8, was given vitamin K 5 mg and told to hold Coumadin for 3 days which she did and restarted a first dose yesterday of 2.5 mg. She is having no bleeding problems. Denies blood from nose, gums, hematemesis, stool or urine. She is taking Macrobid for UTI. PFS <VLADISLAV Pagan - Last Filed: 11/30/22 20:00> [facility] Medical History Abnormal electrocardiogram Abrasion Alcohol use Anemia Angina at rest Arthritis Atherosclerotic heart disease of [place] coronary artery without angina pectoris Atrial fibrillation Back pain Bacteremia Blood infection Cardiology follow-up encounter Depression Dietary restriction Dyslipidemia Encounter for long-term current use of high risk medication Essential hypertension Former smoker Gastric reflux High cholesterol History of atrial fibrillation History of echocardiogram History of hiatal hernia History of irregular heartbeat History of pain when walking History of renal disease History of stress test Hx of fracture of arm Hx of uterine prolapse Hypertension Insulin dependent diabetes mellitus Leg cramps Loss of hearing Mitral valve disorder Murmur, functional Nonrheumatic aortic (valve) stenosis Palpitations Paroxysmal atrial fibrillation Paroxysmal ventricular tachycardia Post-menopausal Premature atrial contraction Premature ventricular contraction Restless legs Shortness of breath on exertion SIRS (systemic inflammatory response syndrome) Type 2 diabetes mellitus Ventricular tachycardia Vertigo Wears glasses Wears partial dentures Home Medications gemfibrozil 600 mg tablet (Lopid) 600 mg PO BIDAC 07/10/13 [History Last Taken 10/20/22] atorvastatin 40 mg tablet 40 mg PO QDAY 12/21/17 [History Last Taken 10/20/22] metformin 500 mg tablet 2,000 mg PO DAILY 02/08/20 [History Last Taken 10/20/22] meclizine 12.5 mg tablet 12.5 mg PO TID PRN Dizziness 09/30/20 [History Last Taken 10/20/22] atenolol 50 mg tablet 50 mg PO DAILY 07/03/21 [History Last Taken 10/21/22 05:30] enoxaparin 60 mg/0.6 mL subcutaneous syringe (Lovenox) 60 mg (0.6 mL) subcut Q12H #6 mL 09/16/22 [Rx Last Taken 10/21/22 05:30] cholecalciferol (vitamin D3) 50 mcg (2,000 unit) capsule (Vitamin D3) 50 mcg PO DAILY 10/14/22 [History Last Taken 10/20/22] diphenhydramine HCl 25 mg capsule (Benadryl) 50 mg PO QHS 10/14/22 [History Last Taken 10/20/22] insulin glargine U-300 conc 300 unit/mL (3 mL) subcutaneous pen (Toujeo Max U- 300 SoloStar) 40 unit subcut QHS 10/14/22 [History Last Taken 10/20/22] lisinopril 20 mg tablet 40 mg PO DAILY 10/14/22 [History Last Taken 10/20/22] omeprazole 20 mg tablet,delayed release 40 mg PO QHS 10/14/22 [History Last Taken 10/20/22] warfarin 3 mg tablet 2.5 mg PO MOWEFR 10/14/22 [History Last Taken 10/14/22] warfarin 5 mg tablet 5 mg PO SUTUTHSA 10/14/22 [History Last Taken 10/15/22] acetaminophen 500 mg tablet 1,000 mg PO Q8 30 days #180 tabs 10/23/22 [Rx Last Taken Unknown] ferrous sulfate 325 mg (65 mg iron) tablet (FeroSul) 325 mg PO 1200,1700 #60 tabs 10/23/22 [Rx Last Taken Unknown] oxycodone 5 mg tablet 5 - 10 mg PO Q4H PRN PRN Pain Score 4-10 7 days #60 tabs 10/23/22 [Rx Last Taken Unknown] sennosides 8.6 mg-docusate sodium 50 mg tablet (Stool Softener-Stimulant Laxative) 2 tab PO BID PRN constipation #14 tabs 10/23/22 [Rx Last Taken Unknown] nitrofurantoin monohydrate/macrocrystals 100 mg capsule (Macrobid) 100 mg PO Q12H 7 days #14 caps 11/26/22 [Rx Last Taken Unknown] Allergy/AdvReac Type Severity Reaction Status Date / Time Calcium Channel Blocking Allergy Rash Verified 11/30/22 18:15 Agent Dilt [Calcium Channel Blocking Agents-Win] Family History Mother CAD (coronary artery disease) Brother hyperlipidemia Brother Hypertension Father CAD (coronary artery disease) Surgical History Bioprosthetic mitral valve replacement, current hospitalization History of cardiac catheterization History of left heart catheterization (LHC) (~07/19/20) History of mitral valve replacement with mechanical valve (~09/29/01) Hx of colonoscopy Hx of dilation and curettage Hx of inguinal hernia repair Hx of lithotripsy 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 CVS: Negative for chest pain. Respiratory: Negative for shortness of breath. GI: Negative for abdominal pain, nausea, vomiting, melena, hematochezia. : Negative for hematuria. EXAM <VLADISLAV Pagan - Last Filed: 11/30/22 20:00> Physical Exam Narrative Exam Narrative: CONST: Patient sitting in no acute distress. EYES: Normal inspection. NECK: Normal inspection. RESP: No respiratory distress, CTAB. CVS: Regular rate and rhythm, mechanical valve click, no murmur. ABD: Soft and nontender, no guarding or rebound, nondistended. SKIN: Color normal, no rash, warm, dry, intact. EXTREMITIES: Normal appearance, no pedal edema. NEURO: Oriented x4. PSYCH: Normal affect. Const Vital Signs: 11/30/22 18:13 Temperature 97 F L Temperature Source Temporal Pulse Rate 84 Respiratory Rate 16 Blood Pressure 125/57 H Blood Pressure Mean 79 Pulse Ox 99 Oxygen Delivery Method Room Air <Dr. Mukesh Ferguson MD - Last Filed: 11/30/22 19:29> Physical Exam Const Vital Signs: 11/30/22 18:13 Temperature 97 F L Temperature Source Temporal Pulse Rate 84 Respiratory Rate 16 Blood Pressure 125/57 H Blood Pressure Mean 79 Pulse Ox 99 Oxygen Delivery Method Room Air MDM <VLADISLAV Pagan - Last Filed: 11/30/22 20:00> [facility] Narrative Medical decision making narrative: History from: Patient and daughter Patient had elevated [id number] INR at home. She is asymptomatic. Rechecked here and it is 4.6. Her therapeutic goal is 2.5-3.5. I recommended she hold the dose tonight and she actually has an appointment tomorrow at [address] David's office so they can discuss further dosing. While patient was on the room daughter also expressed concern for her having possible TIAs. Patient has no neurological deficits here. NIH 0. She is acting totally appropriately. However with a history of elevated INR CT brain was obtained and is negative. Patient discharged in stable condition. Differential: Incorrect Coumadin dosing, antibiotics affecting INR I have personally performed a face to face assessment of the patient and have reviewed the JENNY Note. I performed a substantive portion of the visit including all aspects of the following. My dawson findings include: History is 72-year-old female history of chronic anticoagulation with Coumadin secondary to a cardiac valve. Recently had an elevated INR was given vitamin K and had a recheck. According to home health the INR was 8 today. Patient has no complaints. We will recheck an INR. Exam is [well-appearing 72-year-old female. Vital signs are stable. She is afebrile H EENT exam under work-up. No patient droop. No trauma. Normal speech. Lungs clear. Heart regular rhythm. Valve click. Abdomen soft nontender. Moving all 4 extremities. 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 Dorsi plantarflexion intact. Neurologic exam normal. Awake and alert. Answering questions and following commands. NIH 0.] Medical Decision Making [patient with an elevated supratherapeutic INR on Coumadin due to heart valve. We rechecked it. INR currently is 4.6. We will still hold her Coumadin and have it rechecked before we started. Family voiced concerns that she may be having TIAs time. We are checking a CT of her brain. She has a completely normal neurologic exam.] Other additions or changes: [None] Lab Data Labs: Laboratory Results - last 24 hr 11/30/22 18:50 PT 43.0 H INR 4.6 H* Radiography Diagnostic Testing: Clinical Impression(s) from Imaging Studies Brain CT 11/30/22 19:17 IMPRESSION: Chronic involutional changes without evidence of acute intracranial or calvarial abnormality. No major interval change AIDOC was utilized to assist in identifying pertinent positive findings in this case. Electronically Signed: Dorian Cervantes DO at 19:54 EDT Reading Location ID and State: [address] [place] [address] Tel [phone], Service support , <Dr. Mukesh Ferguson MD - Last Filed: 11/30/22 19:29> [facility] MDM Narrative Medical decision making narrative: I have personally performed a face to face assessment of the patient and have reviewed the JENNY Note. I performed a substantive portion of the visit including all aspects of the following. My dawson findings include: History is 72-year-old female history of chronic anticoagulation with Coumadin secondary to a cardiac valve. Recently had an elevated INR was given vitamin K and had a recheck. According to home health the INR was 8 today. Patient has no complaints. We will recheck an INR. Exam is [well-appearing 72-year-old female. Vital signs are stable. She is afebrile H EENT exam under work-up. No patient droop. No trauma. Normal speech. Lungs clear. Heart regular rhythm. Valve click. Abdomen soft nontender. Moving all 4 extremities. 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 Dorsi plantarflexion intact. Neurologic exam normal. Awake and alert. Answering questions and following commands. NIH 0.] Medical Decision Making [patient with an elevated supratherapeutic INR on Coumadin due to heart valve. We rechecked it. INR currently is 4.6. We will still hold her Coumadin and have it rechecked before we started. Family voiced concerns that she may be having TIAs time. We are checking a CT of her brain. She has a completely normal neurologic exam.] Other additions or changes: [None] History & Record Review Discussion w/independent historian: Patient Lab Data Labs: Laboratory Results - last 24 hr 11/30/22 18:50 PT 43.0 H INR 4.6 H* Radiography Diagnostic Testing: Clinical Impression(s) from Imaging Studies Brain CT 11/30/22 19:17 IMPRESSION: Chronic involutional changes without evidence of acute intracranial or calvarial abnormality. No major interval change AIDOC was utilized to assist in identifying pertinent positive findings in this case. Electronically Signed: Dorian Cervantes DO at 19:54 EDT Reading Location ID and State: [address] [place] [address] Tel [phone], Service support , Discharge Plan Triage Chief Complaint: Abn Labs ED Midlevel Provider: Ludmila Wheeler ED Provider: Mukesh Ferguson Dx/Rx/DC Orders Clinical Impression: Supratherapeutic INR Prescriptions: No Action atorvastatin 40 mg tablet 40 mg PO QDAY metformin 500 mg tablet 2,000 mg PO DAILY atenolol 50 mg tablet 50 mg PO DAILY gemfibrozil [Lopid] 600 MG tablet 600 mg PO BIDAC diphenhydramine HCl [Benadryl] 25 mg Capsule 50 mg PO QHS cholecalciferol (vitamin D3) [Vitamin D3] 50 mcg (2,000 unit) Capsule 50 mcg PO DAILY Toujeo Max U-300 SoloStar 300 unit/mL (3 mL) Insulin Pen 40 unit SUBCUT QHS lisinopril 20 mg tablet 40 mg PO DAILY warfarin 3 mg tablet 2.5 mg PO warfarin 5 mg tablet 5 mg PO SUT Protocol: Dose Management Condition: Wednesday Dose/Route: 5 mg Instruction: 1 x 5 mg tablet Condition: Wednesday Dose/Route: 7.5 mg Instruction: 1.5 x 5 mg tablets Condition: Wednesday Dose/Route: 7.5 mg Instruction: 1.5 x 5 mg tablets Condition: Wednesday Dose/Route: 5 mg Instruction: 1 x 5 mg tablet Condition: Dose/Route: 5 mg Instruction: 1 x 5 mg tablet Condition: Wednesday Dose/Route: 5 mg Instruction: 1 x 5 mg tablet Condition: Wednesday Dose/Route: 5 mg Instruction: 1 x 5 mg tablet Protocol Text: Adjustment Start Date: Wednesday08/13/20 INR Value: 2.90 INR Date: 07/31/20 omeprazole 20 mg Tablet,Delayed Release (Dr/Ec) 40 mg PO QHS oxycodone 5 mg Tablet 5 - 10 mg PO Q4H PRN PRN (Reason: Pain Score 4-10) 7 Days Qty: 60 0RF sennosides-docusate sodium [Stool Softener-Stimulant Laxat] 8.6-50 mg Tablet 2 tab PO BID PRN (Reason: constipation) Qty: 14 0RF acetaminophen 500 mg Tablet 1,000 mg PO Q8 30 Days Qty: 180 0RF ferrous sulfate [FeroSul] 325 mg (65 mg iron) Tablet 325 mg PO 1200,1700 Qty: 60 2RF nitrofurantoin monohyd/m-cryst [Macrobid] 100 mg capsule 100 mg PO Q12H 7 Days Qty: 14 0RF Rx Instructions: must administer with a meal/food meclizine 12.5 mg tablet 12.5 mg PO TID PRN (Reason: Dizziness) enoxaparin [Lovenox] 60 mg/0.6 mL syringe 60 mg subcut Q12H Qty: 6 1RF Primary Care Provider: Gwen David Referrals: Gwen David MD [Primary Care Provider] - Activity Restrictions/Additional Instructions: INR is 4.6. Do not take Coumadin tonight. Call your doctor tomorrow to have them recheck it before you take another dose. Disposition Disposition: Home, Self Care
--- NOTE | 2022-11-30 19:17 | CT_ITS ---
STUDY: CT BRAIN WITHOUT CONTRAST REASON FOR EXAM: Female, 72 years old. Altered mental status. RADIATION DOSAGE (If Supplied By Facility): CTDIvol = ( 44.99 ) mGy, DLP = ( 779.24 ) mGycm TECHNIQUE: Transaxial CT imaging of the brain was performed without administration of intravenous contrast material. Individualized dose optimization techniques were used for this CT. COMPARISON: October 13, 2017. FINDINGS: Normal soft tissue structures. Normal calvarium. There is asymmetry of the ventricles consistent with an anatomic variant. There are areas of decreased attenuation within the white matter tracts of the supratentorial brain, consistent with microvascular disease changes. Normal basal ganglia and thalami. Normal brainstem. Normal cerebellum. There is no intracranial hemorrhage. There are no findings of an acute ischemic infarction. Normal visualized paranasal sinuses. CT/Brain/Head without Contrast IMPRESSION: Chronic involutional changes without evidence of acute intracranial or calvarial abnormality. No major interval change AIDOC was utilized to assist in identifying pertinent positive findings in this case. Electronically Signed: Dorian Cervantes DO at 19:54 EDT Reading Location ID and State: [address] [place] [address] Tel [phone], Service support ,
[2022-11-30 19:19] LABS: International Normalized Ratio 4.6
[2022-11-30 19:56] VITALS: RESP 18; O2SAT 98
== END 2022-11-30 20:06 | disposition home or self-care (01) ==
LOC: ED 18:53
PROVIDERS: Physician Assistant; Emergency Provider Emergency Medicine; PCP Internal Medicine; Visit Provider Emergency Medicine
DX: R79.1 Abnormal coagulation profile (principal); I48.91 Unspecified atrial fibrillation; I25.10 Atherosclerotic heart disease of native coronary artery without angina pectoris; Z79.01 Long term (current) use of anticoagulants; Z87.891 Personal history of nicotine dependence
CPT/HCPCS: 70450; 85610; 99283; A4216

== ENCOUNTER → 2023-04-20 | Outpatient (CLI) | payer MEDICARE, SELFPAY ==
[2020-12-04 07:04] VITALS: BMI 27.6
== END | disposition home or self-care (01) ==
PROVIDERS: PCP Internal Medicine; Referring Provider Physician Assistant Medical; Visit Provider Physician Assistant Medical
DX: R00.2 Palpitations (principal); Z95.2 Presence of prosthetic heart valve
CPT/HCPCS: 93306

== ENCOUNTER 2023-06-09 12:19 | Inpatient (IN) | payer MEDICARE, SELFPAY ==
[2020-12-04 07:04] VITALS: BMI 27.6
[2023-06-09 12:21] VITALS: PULSE 63; RESP 14; TEMP 36.7; O2SAT 97; BMI 22.6
[2023-06-09 12:25] VITALS: BP 91/65
--- NOTE | 2023-06-09 13:30 | RAD_ITS ---
STUDY: X-RAY - PELVIS AND LEFT HIP REASON FOR EXAM: Female, 73 years old. Left hip pain following a fall. TECHNIQUE: 3 views of the pelvis and hip. COMPARISON: Comparison is made with prior study dated October 21, 2022. FINDINGS: There is a non-specific bowel gas pattern. Evidence of right M1 cranial repair with a mesh. Bilateral tubal ligation clips are seen. There is narrowing with cortical sclerosis and osteophyte formation of the sacroiliac joint consistent with degenerative osteoarthritic changes. Nondisplaced fractures of the medial aspect of the left superior and inferior pubic rami. Normal pubic symphysis. Normal bilateral ischial tuberosities. The patient is status post left total hip replacement. RAD/HIP, UNI W/ Pelvis 2-3 Views IMPRESSION: Nondisplaced fractures of the medial portions of the left superior and inferior pubic rami. Status post left total hip replacement. Electronically Signed: Abelino Davenport MD at 14:00 EDT ,
--- NOTE | 2023-06-09 14:16 | CT_ITS ---
HISTORY: blunt trauma. TECHNIQUE: Helically acquired images were obtained of the abdomen and pelvis after the intravenous administration of 100mL Isovue-370. A radiation dose optimization technique was used for this scan. 466 images. COMPARISON: 10/25/2022. FINDINGS: LOWER CHEST: Mild atelectasis in the lung bases. Mild cardiomegaly with mitral valvular disease. BOWEL: Mild hiatal hernia. Bowel nondilated. No periappendiceal inflation. Colonic diverticulosis without pericolonic inflammation. Circumferential rectal wall thickening with mild perirectal stranding. PERITONEUM: No significant ascites. LIVER: No enhancing mass. GALLBLADDER/BILIARY TREE: Multiple calcified gallstones. SPLEEN/PANCREAS/ADRENAL GLANDS: Homogeneous and nonenlarged. KIDNEYS: No hydronephrosis. Small right renal cysts. Intact. VESSELS: Moderate atherosclerosis of the abdominal aorta and its major branches. Normal caliber and contour of the abdominal aorta. PELVIC ORGANS: Mild air in the bladder, which may be secondary to recent segmentation. ABDOMINAL WALL: Right lower postoperative repair. Surgical clips in the left pelvis. BONES: Mild T12 compression fracture involving the inferior endplate. Comminuted and mildly displaced fracture of the left greater trochanter with nondisplaced subtrochanteric fracture of the proximal femur. Surrounding intramuscular hematoma although decreased from 6 prior demonstrates small calcification but probable puddling of contrast more inferiorly. Subcutaneous rim-enhancing fluid collection over the left hip with mild surrounding stranding measures 3.2 x 3.4 cm. Left hip arthroplasty in place. Chronic left superior and inferior pubic rami fractures. Osteopenia and degenerative change. CT/Abdomen/Pelvis W IV Cont ONLY IMPRESSION: Periprosthetic fracture of the left proximal femur with surrounding intramuscular hematoma and suspicion for mild active contrast extravasation. Small subcutaneous fluid collection lateral to the left hip arthroplasty, possible abscess. Mild T12 compression fracture. Mild hiatal hernia. Rectal wall thickening with perirectal edema from trauma or inflammation. Cholelithiasis. Small right renal cyst. Electronically Signed: Kimberly Cortez MD at 16:02 EDT ,
[2023-06-09] MEDS: 0.9% Normal Saline (500mL Bag) 500 ML 999 ML IV (14:30)
[2023-06-09] MEDS: fentaNYL 100 MCG/2 ML Ampul 50 MCG IV (14:30)
[2023-06-09 14:36] LABS: Absolute Lymphocyte Count 0.56 X10^3/uL (0.83-4.51); Absolute Neutrophil Count 7.2 X10^3/uL (2.0-7.7); Basophil# 0.04 X10^3/uL; Basophil% 0.5 % (0-1); Eosinophil# 0.01 X10^3/uL; Eosinophils% 0.1 % (0-5); Hematocrit 43.7 % (37-47); Lymphocyte # 0.56 X10^3/ul (0.83-4.51); Lymphocyte % 6.7 % (19-41); Mean Corpuscular Hgb 30.4 pg (27.0-32.0); Mean Platelet Vol. 11.8 fl (6.2-12.0); Monocyte# 0.46 X10^3/uL; Monocyte% 5.5 % (0-10); NRBC Flagged by Analyzer 0 % (0-5); Neutrophil # 7.16 X10^3/uL (2.7-7.7); Neutrophil % 86.2 % (47-70); POSITIVE DIFFERENTIAL YES; Platelet Count 245 K/mm3 (150-450); RBC Distribution Width CV 15.9 % (11.6-14.6); RBC Distribution Width SD 54.9 fl (35.1-43.9); White Blood Count 8.3 K/mm3 (4.4-11.0)
[2023-06-09 14:38] LABS: Differential Indicated SCAN CRITERIA MET
[2023-06-09 14:46] LABS: International Normalized Ratio 1.7; Prothrombin Time (Protime)PT. 19.8 SECONDS (11.7-14.9)
[2023-06-09 14:55] LABS: ALB/GLOB Ratio 0.9 RATIO (0.9-2.4); AST(SGOT) 11 U/L (15-37); Alanine Aminotransfer ALT/SGPT 18 U/L (13-56); Albumin, Serum 3.2 g/dL (3.2-5.0); Alkaline Phosphatase 95 U/L (45-117); Anion Gap 9 (5-15); BUN 22 mg/dL (7-18); BUN/Creat Ratio 21.2 RATIO (10-20); Chloride 107 mmol/L (98-107); Creatinine, Serum 1.04 mg/dL (0.55-1.02); EST Glomerular Filtration Rate 55 mL/min (>60); Est Glom Filt Rate - Afr Amer 66 mL/min (>60); Estimated Creatinine Clearance 33.57 ml/min; Globulin 3.4 g/dL (2.2-4.2); Glucose 578 mg/dL (74-106); Protein, Total 6.6 g/dL (6.4-8.2); Sodium Level 137 mmol/L (136-145)
[2023-06-09 15:09] LABS: Anisocytosis RARE; Macrocytosis RARE; Platelet Estimate ADEQUATE (ADEQ); Red Cell Morphology N CHROM NORMAL (NORM C&C)
--- NOTE | 2023-06-09 16:36 | EDS_ITS ---
HPI History of Present Illness Chief Complaint: Lower Extremity Injury Narrative Narrative: 73-year-old female presenting with left hip pain/pelvic pain. She states she was out to lunch with her friends and fell on her hip. She was unable to ambulate. Patient is on Coumadin for history of A-fib. Patient denies hitting her head or LOC. She does not have any numbness or tingling. Patient states he has a lot of falls. She is status post left hip replacement by Dr. Herndon. [facility] Medical History Abnormal electrocardiogram Abrasion Alcohol use Anemia Angina at rest Arthritis Atherosclerotic heart disease of [place] coronary artery without angina pectoris Atrial fibrillation Back pain Bacteremia Blood infection Cardiology follow-up encounter Depression Dietary restriction Dyslipidemia Encounter for long-term current use of high risk medication Essential hypertension Former smoker Gastric reflux High cholesterol History of atrial fibrillation History of echocardiogram History of hiatal hernia History of irregular heartbeat History of pain when walking History of renal disease History of stress test Hx of fracture of arm Hx of uterine prolapse Hypertension Insulin dependent diabetes mellitus Leg cramps Loss of hearing Mitral valve disorder Murmur, functional Nonrheumatic aortic (valve) stenosis Palpitations Paroxysmal atrial fibrillation Paroxysmal ventricular tachycardia Post-menopausal Premature atrial contraction Premature ventricular contraction Restless legs Shortness of breath on exertion SIRS (systemic inflammatory response syndrome) Type 2 diabetes mellitus Ventricular tachycardia Vertigo Wears glasses Wears partial dentures Home Medications gemfibrozil 600 mg tablet (Lopid) 600 mg PO BIDAC CHOLESTEROL 07/10/13 [History Last Taken 06/09/23] atorvastatin 40 mg tablet 40 mg PO DAILY CHOLESTEROL 12/21/17 [History Last Taken 06/09/23] meclizine 12.5 mg tablet 12.5 mg PO TID PRN DIZZINESS 09/30/20 [History Last Taken 10/20/22] cholecalciferol (vitamin D3) 50 mcg (2,000 unit) capsule (Vitamin D3) 50 mcg PO DAILY SUPPLEMENT 10/14/22 [History Last Taken 06/09/23] diphenhydramine HCl 25 mg capsule (Benadryl) 50 mg PO QHS SLEEP 10/14/22 [History Last Taken 06/08/23] warfarin 3 mg tablet 3 mg PO WE BLOOD THINNER 10/14/22 [History Last Taken 06/09/23] warfarin 5 mg tablet 5 mg PO SUMOTUTHFRSA BLOOD THINNER 10/14/22 [History Last Taken 06/08/23] atenolol 50 mg tablet 75 mg PO DAILY BLOOD PRESSURE 03/24/23 [History Last Taken 06/09/23] colestipol 1 gram tablet (Colestid) 1 g PO DAILY CHOLESTEROL 03/24/23 [History Last Taken 06/09/23] lisinopril 20 mg tablet 20 mg PO DAILY BLOOD PRESSURE 03/24/23 [History Last Taken 06/09/23] dapagliflozin propanediol 10 mg tablet (Farxiga) 10 mg PO DAILY BLOOD SUGARS #30 tabs 04/29/23 [Rx Last Taken Unknown] acetaminophen 650 mg tablet,extended release (8 Hour Pain Reliever) 1,300 mg PO QHS PRN PAIN 06/09/23 [History Last Taken 06/08/23] metformin 500 mg tablet,extended release 24 hr 2,000 mg PO DAILY BLOOD SUGARS 06/09/23 [History Last Taken 06/09/23] omeprazole 40 mg capsule,delayed release 40 mg PO BID ACID REFLUX 06/09/23 [History Last Taken 06/09/23] Allergy/AdvReac Type Severity Reaction Status Date / Time Calcium Channel Blocking Allergy Rash Verified 06/09/23 12:21 Agent Dilt [Calcium Channel Blocking Agents-Win] Family History Mother CAD (coronary artery disease) Brother hyperlipidemia Brother Hypertension Father CAD (coronary artery disease) Surgical History Bioprosthetic mitral valve replacement, current hospitalization History of cardiac catheterization History of left heart catheterization (LHC) (~07/19/20) History of mitral valve replacement with mechanical valve (~09/29/01) History of total left hip replacement Hx of colonoscopy Hx of dilation and curettage Hx of inguinal hernia repair Hx of lithotripsy 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) Social History Smoking Status: Former smoker alcohol intake: never substance use type: does not use caffeine: Yes Type: coffee Number of servings: 1 what type of physical activity do you participate in: walking frequency: daily duration: 15-30 minutes/day seatbelt use: always do you feel safe at home: Yes ROS ROS ED Constitutional Constitutional ED: Denies chills, fever(s) or sweats Eyes Eyes: Denies blurry vision or change in vision ENT ENT ED: Denies ear pain or sore throat Cardiovascular Cardiovascular: Denies chest pain, palpitations or racing heartbeat Respiratory/Chest Respiratory/Chest: Denies cough, dyspnea or sputum Gastrointestinal Gastrointestinal: Denies abdominal pain, constipation, diarrhea, nausea or vomi ting Genitourinary Genitourinary ED: Reports other; Denies dysuria, hematuria or urinary frequency Musculoskeletal Musculoskeletal: Reports other Details: Left hip pain ; Denies arthralgias, myalgias or neck pain Integumentary Denies abscess, Abrasions or rash Neurologic Neurologic: Denies headache(s), paresthesias or weakness Psychiatric Psychiatric: Denies anxiety, depression, suicidal ideation or suicidal thoughts Endocrine Endocrinology: Denies polydipsia or polyuria EXAM Physical Exam Const Vital Signs: 06/09/23 12:21 06/09/23 12:25 Temperature 98.0 F Temperature Source Temporal Pulse Rate 63 Respiratory Rate 14 Blood Pressure 91/65 Blood Pressure Mean 73 Pulse Ox 97 Positive well nourished General Appearance ED: NAD HEENT Reports moist mucous membranes normocephalic and atraumatic Chest Wall inspection of chest normal Resp normal respiratory effort and no retractions Cardio regular rate and regular rhythm GI GI Narrative: To palpation of left lower pelvis. Back/Spine Back/Spine Narrative: Left lower tube backer to palpation. Extremity Extremity Narrative: Left hip tender to palpation over the greater trochanter. There is a small hematoma over the greater trochanter. Mild bruising. Positive logroll left hip Neuro oriented x3 Sensorium / Orientation: alert Motor Exam: strength 5/5 throughout Psych mental status grossly normal MDM MDM MDM Narrative Medical decision making narrative: 73-year-old female presenting with left hip pain after fall. No why she fell. Differential includes dehydration, electro abnormalities, hip fracture, pelvic fracture. We did initially get an x-ray of the left hip which shows what looks to be a fracture of the superior inferior pubic rami on my interpretation. Patient states he has a distant history of this in the past. She also has a left hip replacement. On examination she is very tender and has a small hematoma on the left hip. Head without contrast because the patient is on blood thinners and has a hematoma I did opt to get a CT of the abdomen pelvis with IV contrast to make sure there is nothing more traumatic in the pelvis. CBC was obtained to assess white blood cell count, hemoglobin, platelets. CMP to assess liver function, renal function, electrolytes, glucose. CBC was unremarkable. CMP shows mild elevation in the bilirubin at 1.1 and her glucose is 578. There is no anion gap. CT of the abdomen pelvis shows a prosthetic fracture adjacent to the hip on the left which appears to be the greater trochanter. Does not appear to be acute pelvic fractures otherwise. There is a hematoma noted on the CT scan which also was stated could be an abscess but is most likely to be blood. Discussed the case with Dr. Loyd who reviewed the images and felt this was nonoperative and would be a weightbearing issue for short while but she could stay here at the hospital. Her INR was subtherapeutic today. She will be admitted for pain control and placement. Patient was given IV fluids and glucose was managed on the medical floor. Impression: 1. Left periprosthetic hip fracture 2. Fall 3. hyperglycemia 4. Left hip hematoma Lab Data Attestation: I reviewed the patient's lab results. Labs: Laboratory Results - last 24 hr 06/09/23 14:25 WBC 8.3 RBC 4.60 Hgb 14.0 Hct 43.7 MCV 95.0 MCH 30.4 MCHC 32.0 RDW Std Deviation 54.9 H RDW Coeff of Tk 15.9 H Plt Count 245 MPV 11.8 Immature Gran % (Auto) 1.000 H Neut % (Auto) 86.2 H Lymph % (Auto) 6.7 L [place] % (Auto) 5.5 Eos % (Auto) 0.1 Baso % (Auto) 0.5 Absolute Neuts (auto) 7.2 Absolute Lymphs (auto) 0.56 L Nucleated RBC % 0 Differential Comment SEE COMMENT Platelet Estimate ADEQUATE RBC Morphology N CHROM Anisocytosis RARE Macrocytosis RARE PT 19.8 H INR 1.7 Sodium 137 Potassium 5.0 Chloride 107 Carbon Dioxide 21.0 Anion Gap 9 BUN 22 H Creatinine 1.04 H Estim Creat Clear Calc 33.57 Est GFR (MDRD) Af Amer 66 Est GFR (MDRD) Non-Af 55 L BUN/Creatinine Ratio 21.2 H Glucose 578 H* Calcium 9.0 Total Bilirubin 1.10 H AST 11 L ALT 18 Alkaline Phosphatase 95 Total Protein 6.6 Albumin 3.2 Globulin 3.4 Albumin/Globulin Ratio 0.9 Radiography Diagnostic Testing: Clinical Impression(s) from Imaging Studies Hip/Pelvis X-Ray 06/09/23 13:30 IMPRESSION: Nondisplaced fractures of the medial portions of the left superior and inferior pubic rami. Status post left total hip replacement. Electronically Signed: Abelino Davenport MD at 14:00 EDT , Abdomen/Pelvis CT 06/09/23 14:16 IMPRESSION: Periprosthetic fracture of the left proximal femur with surrounding intramuscular hematoma and suspicion for mild active contrast extravasation. Small subcutaneous fluid collection lateral to the left hip arthroplasty, possible abscess. Mild T12 compression fracture. Mild hiatal hernia. Rectal wall thickening with perirectal edema from trauma or inflammation. Cholelithiasis. Small right renal cyst. Electronically Signed: Kimberly Cortez MD at 16:02 EDT , ADDENDUM: 06/09/23 1629 IMPRESSION: Periprosthetic fracture of the left proximal femur with surrounding intramuscular hematoma and suspicion for mild active contrast extravasation. Small subcutaneous fluid collection lateral to the left hip arthroplasty, possible abscess. Mild T12 compression fracture. Mild hiatal hernia. Rectal wall thickening with perirectal edema from trauma or inflammation. Cholelithiasis. Small right renal cyst. N.B. : Sony Diaz DO, confirmed on 06/09/2023 16:22:43 (ET) that the healthcare facility has received the radiology report. Electronically Signed: Kimberly Cortez MD at 16:02 EDT , Discharge Plan Triage Chief Complaint: Lower Extremity Injury ED Provider: Sony Diaz Dx/Rx/DC Orders Primary Care Provider: Gwen David
--- NOTE | 2023-06-09 16:39 | PCM.HP.STD ---
HPI - General General Date of Admission: 06/09/23 Date of Service: 06/09/23 Chief Complaint: Left hip pain HPI Narrative MACIEL BUCIO, is a 73 F who presented to the emergency department at [facility] on 06/09/2020 through complaining of left hip pain status post fall. Patient reported she was out to lunch at the [employer] with a friend and was getting out of the [place]air going to her car at which time she fell. She was somewhat unclear on how she fell however with further questioning she felt like her leg gave way. She states it does this sometimes when she is more fatigued or when the weather is colder. She does indicate she falls quite frequently. She had a left total hip arthroplasty done on 10/2022. She was unable to ambulate so she came to the emergency department. She is chronically anticoagulated with Coumadin for history of atrial fibrillation as well as mechanical mitral valve. Vital signs on arrival show normal temperature, heart rate 63, blood pressure was 91/65, respiratory was 14 oxygen saturations were 97% room air. Her CBC is overall unremarkable. INR was 1.7 which is subtherapeutic as her INR should be 2.5-3.5. Her chemistry panel is overall unremarkable other than some mild dehydration with a BUN of 22 and a serum creatinine of 1.04. Her glucose was elevated at 578. Patient has not been taking her Farxiga she states she does not want to. Hip and pelvic x-rays show nondisplaced fracture of the medial portion of the left superior and inferior pubic rami as well as total left hip replacement however CT of her abdomen pelvis demonstrated a periprosthetic fracture of the left proximal femur with surrounding intramuscular hematoma and suspicion for mild active contrast extravasation, mild T12 compression fracture, mild halo hernia with rectal wall thickening, cholelithiasis and a small right renal cyst. [facility] Medical History Abnormal electrocardiogram Abrasion Alcohol use Anemia Angina at rest Arthritis Atherosclerotic heart disease of [place] coronary artery without angina pectoris Atrial fibrillation Back pain Bacteremia Blood infection Cardiology follow-up encounter Depression Dietary restriction Dyslipidemia Encounter for long-term current use of high risk medication Essential hypertension Former smoker Gastric reflux High cholesterol History of atrial fibrillation History of echocardiogram History of hiatal hernia History of irregular heartbeat History of pain when walking History of renal disease History of stress test Hx of fracture of arm Hx of uterine prolapse Hypertension Insulin dependent diabetes mellitus Leg cramps Loss of hearing Mitral valve disorder Murmur, functional Nonrheumatic aortic (valve) stenosis Palpitations Paroxysmal atrial fibrillation Paroxysmal ventricular tachycardia Post-menopausal Premature atrial contraction Premature ventricular contraction Restless legs Shortness of breath on exertion SIRS (systemic inflammatory response syndrome) Type 2 diabetes mellitus Ventricular tachycardia Vertigo Wears glasses Wears partial dentures Home Medications gemfibrozil 600 mg tablet (Lopid) 600 mg PO BIDAC CHOLESTEROL 07/10/13 [History Last Taken 06/09/23] atorvastatin 40 mg tablet 40 mg PO DAILY CHOLESTEROL 12/21/17 [History Last Taken 06/09/23] meclizine 12.5 mg tablet 12.5 mg PO TID PRN DIZZINESS 09/30/20 [History Last Taken 10/20/22] cholecalciferol (vitamin D3) 50 mcg (2,000 unit) capsule (Vitamin D3) 50 mcg PO DAILY SUPPLEMENT 10/14/22 [History Last Taken 06/09/23] diphenhydramine HCl 25 mg capsule (Benadryl) 50 mg PO QHS SLEEP 10/14/22 [History Last Taken 06/08/23] warfarin 3 mg tablet 3 mg PO WE BLOOD THINNER 10/14/22 [History Last Taken 06/09/23] warfarin 5 mg tablet 5 mg PO SUMOTUTHFRSA BLOOD THINNER 10/14/22 [History Last Taken 06/08/23] atenolol 50 mg tablet 75 mg PO DAILY BLOOD PRESSURE 03/24/23 [History Last Taken 06/09/23] colestipol 1 gram tablet (Colestid) 1 g PO DAILY CHOLESTEROL 03/24/23 [History Last Taken 06/09/23] lisinopril 20 mg tablet 20 mg PO DAILY BLOOD PRESSURE 03/24/23 [History Last Taken 06/09/23] dapagliflozin propanediol 10 mg tablet (Farxiga) 10 mg PO DAILY BLOOD SUGARS #30 tabs 04/29/23 [Rx Last Taken Unknown] acetaminophen 650 mg tablet,extended release (8 Hour Pain Reliever) 1,300 mg PO QHS PRN PAIN 06/09/23 [History Last Taken 06/08/23] metformin 500 mg tablet,extended release 24 hr 2,000 mg PO DAILY BLOOD SUGARS 06/09/23 [History Last Taken 06/09/23] omeprazole 40 mg capsule,delayed release 40 mg PO BID ACID REFLUX 06/09/23 [History Last Taken 06/09/23] Allergy/AdvReac Type Severity Reaction Status Date / Time Calcium Channel Blocking Allergy Rash Verified 06/09/23 12:21 Agent Dilt [Calcium Channel Blocking Agents-Win] Family History Mother CAD (coronary artery disease) Brother hyperlipidemia Brother Hypertension Father CAD (coronary artery disease) Surgical History Bioprosthetic mitral valve replacement, current hospitalization History of cardiac catheterization History of left heart catheterization (LHC) (~07/19/20) History of mitral valve replacement with mechanical valve (~09/29/01) History of total left hip replacement Hx of colonoscopy Hx of dilation and curettage Hx of inguinal hernia repair Hx of lithotripsy 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) Social History Smoking Status: Former smoker alcohol intake: never substance use type: does not use caffeine: Yes Type: coffee Number of servings: 1 what type of physical activity do you participate in: walking frequency: daily duration: 15-30 minutes/day seatbelt use: always do you feel safe at home: Yes ROS Constitutional Constitutional: Denies anorexia, change in weight, chills, fatigue, fever(s), malaise, night sweats, weakness or other Eyes Eyes: Denies blurry vision, change in eye color, change in vision, discharge from eye(s), double vision, erythema, eye pain, loss of vision or other ENT HEENT: Denies abnormal hearing, dysphagia, ear pain, epistaxis, headache(s), hearing loss, nasal congestion, nasal discharge, post nasal drip, sinus pressure, sore throat or other Cardiovascular Cardiovascular: Denies chest pain, claudication, dyspnea on exertion, edema, lightheadedness, orthopnea, palpitations, paroxysmal nocturnal dyspnea, rapid heart rate, syncope or other Respiratory/Chest Respiratory/Chest: Denies cough, dyspnea, excessive phlegm production, hemoptysis, productive cough, shortness of breath at rest, shortness of breath with exertion, wheezing or other Gastrointestinal Gastrointestinal: Denies abdominal pain, coffee ground emesis, constipation, diarrhea, dyspepsia, hematemesis, hematochezia, loose stools, melena, nausea, vomiting or other Genitourinary Genitourinary: Denies burning urination, difficulty urinating, dysuria, hematuria, nocturia, urinary frequency, urinary hesitancy, urinary incontinence, urinary urgency or other Musculoskeletal Musculoskeletal: Reports back pain, joint pain and joint stiffness; Denies arthralgias, joint swelling, myalgias, neck pain or other Neurologic Neurologic: Reports abnormal gait, numbness and paresthesias; Denies abnormal speech, confusion, disequilibrium, dizziness, focal weakness, headache(s), seizure-like activity, seizures, syncope, tingling, tremor(s) or other Psychiatric Psychiatric: Denies anxiety, depression, homicidal ideation, suicidal ideation or other Endocrine Endocrinology: Denies change in body appearance, cold intolerance, excessive sweating, heat intolerance, polydipsia, polyuria or other Hematologic/Lymphatic Hematologic/Lymphatic: Denies anemia, easy bleeding, easy bruising, lymphadenopathy or other Allergic/Immunologic Allergic/Immunologic: Denies rhinitis, hives, eczemia, asthma or other Vital Signs Vital Signs Vital Signs: 06/09/23 12:21 06/09/23 12:25 Temperature 98.0 F Temperature Source Temporal Pulse Rate 63 Respiratory Rate 14 Blood Pressure 91/65 Blood Pressure Mean 73 Pulse Ox 97 Weight Weight: 52.5 kg Body Mass Index (BMI) 22.6 Physical Exam Const alert, oriented x3, no apparent distress, average body habitus and well nourished Constitutional Narrative: Older white female, sitting up in bed, appears comfortable and nontoxic, very pleasant General Appearance: cooperative HEENT normocephalic, head/scalp atraumatic, hearing grossly normal bilaterally and moist oral mucous membranes HEENT Narrative: Dentition is poor, Mallampati is 1, no thrush Resp normal respiratory effort, no retractions, no use of accessory muscles and clear to auscultation bilaterally Auscultation: Negative for rales, rhonchi or wheezes Cardio regular rate, S1 normal heart sound, S2 normal heart sound, no murmurs, no rub and no gallops; Negative for no clicks Cardio Narrative: Irregularly irregular rhythm, positive click GI normal to inspection, nondistended, normoactive bowel sounds, soft to palpation and non-tender Extremity no clubbing, cyanosis or edema Extremity Narrative: Pedal pulses are 2+ Neuro oriented x3, CN's II-XII intact bilaterally and no focal motor deficits Speech: speech normal Psych affect normal Psych Narrative: Contact is good, patient is pleasant Results Lab / Micro Data Attestation: I reviewed the patient's lab results. 06/09/23 14:25 06/09/23 14:25 Labs: Laboratory Results - last 24 hr 06/09/23 14:25: WBC 8.3, RBC 4.60, Hgb 14.0, Hct 43.7, MCV 95.0, MCH 30.4, MCHC 32.0, RDW Std Deviation 54.9 H, RDW Coeff of Tk 15.9 H, Plt Count 245, MPV 11.8, Immature Gran % (Auto) 1.000 H, Neut % (Auto) 86.2 H, Lymph % (Auto) 6.7 L, [place] % (Auto) 5.5, Eos % (Auto) 0.1, Baso % (Auto) 0.5, Absolute Neuts (auto) 7.2, Absolute Lymphs (auto) 0.56 L, Nucleated RBC % 0, Differential Comment SEE COMMENT, Platelet Estimate ADEQUATE, RBC Morphology N CHROM, Anisocytosis RARE, Macrocytosis RARE, PT 19.8 H, INR 1.7, Sodium 137, Potassium 5.0, Chloride 107, Carbon Dioxide 21.0, Anion Gap 9, BUN 22 H, Creatinine 1.04 H, Estim Creat Clear Calc 33.57, Est GFR (MDRD) Af Amer 66, Est GFR (MDRD) Non-Af 55 L, BUN/Creatinine Ratio 21.2 H, Glucose 578 H*, Calcium 9.0, Total Bilirubin 1.10 H, AST 11 L, ALT 18, Alkaline Phosphatase 95, Total Protein 6.6, Albumin 3.2, Globulin 3.4, Albumin/Globulin Ratio 0.9 Radiology Impression Hip/Pelvis X-Ray 06/09/23 13:30 IMPRESSION: Nondisplaced fractures of the medial portions of the left superior and inferior pubic rami. Status post left total hip replacement. Electronically Signed: Abelino Davenport MD at 14:00 EDT , Abdomen/Pelvis CT 06/09/23 14:16 IMPRESSION: Periprosthetic fracture of the left proximal femur with surrounding intramuscular hematoma and suspicion for mild active contrast extravasation. Small subcutaneous fluid collection lateral to the left hip arthroplasty, possible abscess. Mild T12 compression fracture. Mild hiatal hernia. Rectal wall thickening with perirectal edema from trauma or inflammation. Cholelithiasis. Small right renal cyst. Electronically Signed: Kimberly Cortez MD at 16:02 EDT , ADDENDUM: 06/09/23 1629 IMPRESSION: Periprosthetic fracture of the left proximal femur with surrounding intramuscular hematoma and suspicion for mild active contrast extravasation. Small subcutaneous fluid collection lateral to the left hip arthroplasty, possible abscess. Mild T12 compression fracture. Mild hiatal hernia. Rectal wall thickening with perirectal edema from trauma or inflammation. Cholelithiasis. Small right renal cyst. N.B. : Sony Diaz DO, confirmed on 06/09/2023 16:22:43 (ET) that the healthcare facility has received the radiology report. Electronically Signed: Kimberly Cortez MD at 16:02 EDT , Assessment & Plan Assessment/Plan (1) Periprosthetic fracture around internal prosthetic left hip joint: (2) Inability to ambulate due to hip: (3) Subtherapeutic international normalized ratio (INR): PLAN: Plan Left periprosthetic hip fracture -Status post mechanical fall -CT of the abdomen pelvis shows a periprosthetic hip fracture of the left proximal femur with surrounding intramuscular hematoma and suspicion for mild active contrast extravasation -Consult orthopedic surgeon -I did discuss with Dr. Loyd with regards to anticoagulation as she does have a mechanical mitral valve and her INR is subtherapeutic at 1.7 -He was okay with initiation of subcu therapeutic Lovenox and will see the patient tomorrow consult -Globin on admission was greater than 14 we will continue to monitor -Orthopedic surgery recommended toe-touch weightbearing and anticipate this to be nonoperative -Current pain medication -Scheduled Tylenol -As needed bowel regimen along with scheduled MiraLAX to avoid constipation -PT/OT consultation -Case management/social work consultation for potential placement or discharge needs with regards to therapy services and home health PAF/aortic valve stenosis/mechanical mitral valve -TAVR performed on 09/18/2020 -Mechanical mitral valve placement in 09/29/2001 -Continue home Coumadin -Start Lovenox with therapeutic dosing since INR is subtherapeutic at 1.7 -Goal INR is 2.5-3.5 -We will need to continue Lovenox until Coumadin is therapeutic at above INR goal Subtherapeutic INR -Patient states she recently had cataract surgery so they were letting her INR run a little bit low however she was to go in soon to have her INR adjusted -Lovenox and Coumadin as above Hypertension -Blood pressures are currently borderline low -We will hold home atenolol and lisinopril -As needed hydralazine Hyperlipidemia -Continue home statin -Continue home colestipol DM-2 with current hyperglycemia -Hold home metformin -Continue home Farxiga -We will start low-dose Lantus with 15 units at at bedtime -SSI -Accu-Cheks GERD -Continue home PPI Vitamin D deficiency -Continue vitamin D supplementation DVT prophylaxis -therapeutic Lovenox and Coumadin till INR is between 2.5 and 3.5 CODE STATUS -DNR CCA with no intubation as verified on admission Charges/Coding Visit Charges Inpatient E&M: 55304 Init Hosp L2
--- NOTE | 2023-06-09 17:00 | NURSING ---
MED SURG KO HIP FRACTURE, HYPERGLYCEMIA
[2023-06-09 18:25] VITALS: BP 116/63; PULSE 74; RESP 16; O2SAT 99
[2023-06-09 19:32] LABS: Bedside Glucose > 500 mg/dL (74-106)
[2023-06-09] MEDS: Insulin Lispro 100 UNIT/ML INSULN.PEN 15 UNIT SC (19:38)
[2023-06-09 21:08] VITALS: BMI 20.7
[2023-06-09 21:19] VITALS: BP 99/49; PULSE 86; RESP 17; TEMP 36.9; O2SAT 97
[2023-06-09 21:35] VITALS: O2SAT 98
[2023-06-09 22:05] LABS: Bedside Glucose 368 mg/dL (74-106)
[2023-06-09] MEDS: Pantoprazole Sodium 40 MG Tablet PO (22:09)
[2023-06-09] MEDS: Atorvastatin Calcium 40 MG Tablet PO (22:09)
[2023-06-09] MEDS: Enoxaparin 60 MG/0.6 ML Syringe 50 MG SC (22:09)
[2023-06-09] MEDS: DiphenhydrAMINE 25 MG Capsule 50 MG PO (22:09)
[2023-06-09] MEDS: Insulin Glargine-YFGN 100 UNIT/ML Pen 15 UNIT SC (23:26)
[2023-06-10 04:00] VITALS: BP 99/54; PULSE 85; RESP 18; TEMP 37; O2SAT 97
[2023-06-10] MEDS: Acetaminophen 500 MG Tablet 1000 MG PO ×2 (05:29→16:19)
[2023-06-10] MEDS: Gemfibrozil 600 MG Tablet PO ×2 (05:29→16:14)
[2023-06-10] MEDS: oxyCODONE 5 MG Tablet PO ×2 (05:30→16:20)
[2023-06-10] MEDS: Enoxaparin 60 MG/0.6 ML Syringe 50 MG SC ×2 (05:31→17:08)
[2023-06-10] MEDS: Insulin Lispro 100 UNIT/ML INSULN.PEN SC ×3 (05:34→16:14)
[2023-06-10 05:56] LABS: Bedside Glucose 215 mg/dL (74-106)
[2023-06-10 07:02] LABS: Absolute Lymphocyte Count 0.75 X10^3/uL (0.83-4.51); Absolute Neutrophil Count 2.9 X10^3/uL (2.0-7.7); Basophil# 0.03 X10^3/uL; Basophil% 0.7 % (0-1); Eosinophils% 2.3 % (0-5); Hematocrit 38.4 % (37-47); Hemoglobin 12.5 g/dL (12.0-15.0); Lymphocyte # 0.75 X10^3/ul (0.83-4.51); Lymphocyte % 17.5 % (19-41); Mean Corp Hgb Conc 32.6 g/dL (32-36); Mean Corpuscular Hgb 30.8 pg (27.0-32.0); Mean Corpuscular Volume 94.6 fL (81-99); Monocyte# 0.43 X10^3/uL; NRBC Flagged by Analyzer 0 % (0-5); Neutrophil # 2.92 X10^3/uL (2.7-7.7); Neutrophil % 68.1 % (47-70); Platelet Count 194 K/mm3 (150-450); RBC Distribution Width CV 15.7 % (11.6-14.6); RBC Distribution Width SD 54.8 fl (35.1-43.9); Red Blood Count 4.06 M/mm3 (4.2-5.4); White Blood Count 4.3 K/mm3 (4.4-11.0)
[2023-06-10 07:26] LABS: International Normalized Ratio 1.5
[2023-06-10 08:08] LABS: ALB/GLOB Ratio 0.8 RATIO (0.9-2.4); AST(SGOT) 14 U/L (15-37); Alanine Aminotransfer ALT/SGPT 14 U/L (13-56); Albumin, Serum 2.4 g/dL (3.2-5.0); Alkaline Phosphatase 77 U/L (45-117); Anion Gap 7 (5-15); BUN 15 mg/dL (7-18); BUN/Creat Ratio 31.9 RATIO (10-20); Calcium,Total 8.7 mg/dL (8.5-10.1); Chloride 111 mmol/L (98-107); Creatinine, Serum 0.47 mg/dL (0.55-1.02); EST Glomerular Filtration Rate 137 mL/min (>60); Est Glom Filt Rate - Afr Amer 166 mL/min (>60); Estimated Creatinine Clearance 34.91 ml/min; Globulin 3.2 g/dL (2.2-4.2); Glucose 223 mg/dL (74-106); Magnesium 1.7 mg/dL (1.6-2.6); Phosphorus 2.2 mg/dL (2.5-4.9); Potassium 3.1 mmol/L (3.5-5.1); Protein, Total 5.6 g/dL (6.4-8.2); Sodium Level 140 mmol/L (136-145)
[2023-06-10 08:18] VITALS: BP 104/60; PULSE 89; RESP 18; TEMP 36.7; O2SAT 94
[2023-06-10] MEDS: Polyethylene Glycol 3350 17 GM PACKET PO (08:22)
[2023-06-10] MEDS: Pantoprazole Sodium 40 MG Tablet PO ×2 (08:22→20:33)
[2023-06-10] MEDS: Cholecalciferol (VIT D3) 25 MCG TABLET (1,000 UNITS) 50 MCG PO (08:23)
[2023-06-10] MEDS: Empagliflozin 25 MG Tablet PO (08:23)
--- NOTE | 2023-06-10 08:48 | PN.HOSP_ITS ---
Reason for Visit Reason for Visit: Diagnoses Periprosthetic fracture around internal prosthetic left hip joint, initial enco unter (06/09/23) Difficulty in walking, not elsewhere classified (06/09/23) Abnormal coagulation profile (06/09/23) Subjective Subjective Feels well. Has been having issues with her hip since surgery in October. Objective Data Objective Data Vital Signs: Vital Signs Temp Pulse Resp BP Pulse Ox O2 Del Method 36.7 C 89 18 104/60 94 Room Air 06/10/23 08:18 06/10/23 08:18 06/10/23 08:18 06/10/23 08:18 06/10/23 08:18 06/10/23 08:18 Oxygen Delivery Method Room Air Weight: 48.1 kg Body Mass Index (BMI) 20.7 Intake & Output: Intake and Output for Last 24 Hours 06/08/23 06/09/23 06/10/23 23:59 23:59 23:59 Intake Total 500 / 500 Output Total 500 / 500 Balance 500 / 500 -500 / -500 Lab / Micro Data 06/10/23 06:15 06/10/23 06:15 Labs: Laboratory Results - last 24 hr 06/09/23 14:25: WBC 8.3, RBC 4.60, Hgb 14.0, Hct 43.7, MCV 95.0, MCH 30.4, MCHC 32.0, RDW Std Deviation 54.9 H, RDW Coeff of Tk 15.9 H, Plt Count 245, MPV 11.8, Immature Gran % (Auto) 1.000 H, Neut % (Auto) 86.2 H, Lymph % (Auto) 6.7 L , [place] % (Auto) 5.5, Eos % (Auto) 0.1, Baso % (Auto) 0.5, Absolute Neuts (auto) 7.2, Absolute Lymphs (auto) 0.56 L, Nucleated RBC % 0, Differential Comment SEE COMMENT, Platelet Estimate ADEQUATE, RBC Morphology N CHROM, Anisocytosis RARE, Macrocytosis RARE, PT 19.8 H, INR 1.7, Sodium 137, Potassium 5.0, Chloride 107, Carbon Dioxide 21.0, Anion Gap 9, BUN 22 H, Creatinine 1.04 H, Estim Creat Clear Calc 33.57, Est GFR (MDRD) Af Amer 66, Est GFR (MDRD) Non-Af 55 L, BUN/Creatinine Ratio 21.2 H, Glucose 578 H*, Calcium 9.0, Total Bilirubin 1.10 H , AST 11 L, ALT 18, Alkaline Phosphatase 95, Total Protein 6.6, Albumin 3.2, Globulin 3.4, Albumin/Globulin Ratio 0.9 06/09/23 19:14: POC Glucose > 500 H* 06/09/23 21:25: POC Glucose 368 H 06/10/23 05:33: POC Glucose 215 H 06/10/23 06:15: WBC 4.3 L, RBC 4.06 L, Hgb 12.5, Hct 38.4, MCV 94.6, MCH 30.8, MCHC 32.6, RDW Std Deviation 54.8 H, RDW Coeff of Tk 15.7 H, Plt Count 194, MPV 12.0, Immature Gran % (Auto) 1.400 H, Neut % (Auto) 68.1, Lymph % (Auto) 17.5 L, [place] % (Auto) 10.0, Eos % (Auto) 2.3, Baso % (Auto) 0.7, Absolute Neuts (auto) 2.9, Absolute Lymphs (auto) 0.75 L, Nucleated RBC % 0, PT 18.0 H, INR 1.5, [place] um 140, Potassium 3.1 L, Chloride 111 H, Carbon Dioxide 22.0, Anion Gap 7, BUN 15, Creatinine 0.47 L, Estim Creat Clear Calc 34.91, Est GFR (MDRD) Af Amer 166, Est GFR (MDRD) Non-Af 137, BUN/Creatinine Ratio 31.9 H, Glucose 223 H, Calcium 8.7, Phosphorus 2.2 L, Magnesium 1.7, Total Bilirubin 0.80, AST 14 L, ALT 14, Alkaline Phosphatase 77, Total Protein 5.6 L, Albumin 2.4 L, Globulin 3.2, Albumin/Globulin Ratio 0.8 L Radiography Diagnostic Testing: Radiology Impression Hip/Pelvis X-Ray 06/09/23 13:30 IMPRESSION: Nondisplaced fractures of the medial portions of the left superior and inferior pubic rami. Status post left total hip replacement. Electronically Signed: Abelino Davenport MD at 14:00 EDT , Abdomen/Pelvis CT 06/09/23 14:16 IMPRESSION: Periprosthetic fracture of the left proximal femur with surrounding intramuscular hematoma and suspicion for mild active contrast extravasation. Small subcutaneous fluid collection lateral to the left hip arthroplasty, possible abscess. Mild T12 compression fracture. Mild hiatal hernia. Rectal wall thickening with perirectal edema from trauma or inflammation. Cholelithiasis. Small right renal cyst. Electronically Signed: Kimberly Cortez MD at 16:02 EDT , ADDENDUM: 06/09/23 1629 IMPRESSION: Periprosthetic fracture of the left proximal femur with surrounding intramuscular hematoma and suspicion for mild active contrast extravasation. Small subcutaneous fluid collection lateral to the left hip arthroplasty, possible abscess. Mild T12 compression fracture. Mild hiatal hernia. Rectal wall thickening with perirectal edema from trauma or inflammation. Cholelithiasis. Small right renal cyst. N.B. : Sony Diaz DO, confirmed on 06/09/2023 16:22:43 (ET) that the healthcare facility has received the radiology report. Electronically Signed: Kimberly Cortez MD at 16:02 EDT , Physical Exam Const alert and no apparent distress HEENT head/scalp atraumatic Head and Scalp: normocephalic Neuro Speech: speech normal Psych affect normal Assessment & Plan Assessment/Plan (1) Periprosthetic fracture around internal prosthetic left hip joint: PLAN: Status post mechanical fall CT of the abdomen pelvis shows a periprosthetic hip fracture of the left proximal femur with surrounding intramuscular hematoma and suspicion for mild active contrast extravasation Consult ortho Orthopedic surgery evaluated and recommended non-operative mgmt. Touchdown weight bearing LLE with no active abduction for 6 weeks. Follow up with Dr. Weston in 1-2 weeks. 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 Start Lovenox with therapeutic dosing since INR is subtherapeutic at 1.7 Goal INR is 2.5-3.5 We will need to continue Lovenox until Coumadin is therapeutic at above INR goal PLAN: Plan Chronic conditions: * Hypertension-Blood pressures are currently borderline low-We will hold home atenolol and lisinopril-As needed hydralazine * Hyperlipidemia-Continue home statin-Continue home colestipol * DM-2 with current hyperglycemia-Hold home metformin-Continue home Farxiga-We will start low-dose Lantus with 15 units at at [id number] * GERD-Continue home PPI * Vitamin D deficiency-Continue vitamin D supplementation VTE prophylaxis: not indicated as pt already anticoagulated. CODE STATUS -DNR CCA with no intubation as verified on admission Disposition: to SNF pending selection and insurance approval. Charges/Coding Visit Charges Inpatient E&M: 16846 Subs Hosp L2
--- NOTE | 2023-06-10 08:56 | CASEMGMT ---
Discharge Planning A list of?SNF providers including quality and resource use data and consistent with the patient's preferred geographic region, medical needs, and insurance network was created in [employer] Guide.? This list was provided to the SW. Adriana Huynh Discharge Planning Asst.
--- NOTE | 2023-06-10 10:00 | CONS.ORTHO ---
HPI Consult Data Date of Consult: 06/10/23 HPI Narrative Reason for Consultation: Left periprosthetic hip fracture HPI Narrative: MACIEL BUCIO, is a 73 F who presents after mechanical fall from standing height onto her left side yesterday. She was unable to bear weight and was brought to [facility] emergency department. X-rays and subsequent CT scan revealed a minimally displaced greater trochanteric fracture. I was consulted from emergency department. I recommended admission of the hospitalist. Saw patient consultation today. Patient states she has been doing well with her left hip status post BORIS with Dr. Weston in October of this year. She ambulates with a walker. Patient is a community ambulator. She reports frequent falls following her surgery, but states she has not fallen since November of this year. Denies any new numbness or tingling. Denies fevers, chills, nausea vomiting, chest pain or shortness of breath. Patient states she has noticed a lump on the lateral aspect of her hip its been present for the last several months which is nonpainful. [facility] Medical History Abnormal electrocardiogram Abrasion Alcohol use Anemia Angina at rest Arthritis Atherosclerotic heart disease of [place] coronary artery without angina pectoris Atrial fibrillation Back pain Bacteremia Blood infection Cardiology follow-up encounter Depression Dietary restriction Dyslipidemia Encounter for long-term current use of high risk medication Essential hypertension Former smoker Gastric reflux High cholesterol History of atrial fibrillation History of echocardiogram History of hiatal hernia History of irregular heartbeat History of pain when walking History of renal disease History of stress test Hx of fracture of arm Hx of uterine prolapse Hypertension Insulin dependent diabetes mellitus Leg cramps Loss of hearing Mitral valve disorder Murmur, functional Nonrheumatic aortic (valve) stenosis Palpitations Paroxysmal atrial fibrillation Paroxysmal ventricular tachycardia Post-menopausal Premature atrial contraction Premature ventricular contraction Restless legs Shortness of breath on exertion SIRS (systemic inflammatory response syndrome) Type 2 diabetes mellitus Ventricular tachycardia Vertigo Wears glasses Wears partial dentures Home Medications gemfibrozil 600 mg tablet (Lopid) 600 mg PO BIDAC CHOLESTEROL 07/10/13 [History Last Taken 06/09/23] atorvastatin 40 mg tablet 40 mg PO DAILY CHOLESTEROL 12/21/17 [History Last Taken 06/09/23] meclizine 12.5 mg tablet 12.5 mg PO TID PRN DIZZINESS 09/30/20 [History Last Taken 10/20/22] cholecalciferol (vitamin D3) 50 mcg (2,000 unit) capsule (Vitamin D3) 50 mcg PO DAILY SUPPLEMENT 10/14/22 [History Last Taken 06/08/23] diphenhydramine HCl 25 mg capsule (Benadryl) 50 mg PO QHS SLEEP 10/14/22 [History Last Taken 06/08/23] warfarin 3 mg tablet 3 mg PO WE BLOOD THINNER 10/14/22 [History Last Taken 06/02/23] warfarin 5 mg tablet 5 mg PO CLAUDIOTUTHMARILYN BLOOD THINNER 10/14/22 [History Last Taken 06/08/23] atenolol 50 mg tablet 75 mg PO DAILY BLOOD PRESSURE 03/24/23 [History Last Taken 06/09/23] colestipol 1 gram tablet (Colestid) 1 g PO DAILY CHOLESTEROL 03/24/23 [History Last Taken 06/09/23] lisinopril 20 mg tablet 20 mg PO DAILY BLOOD PRESSURE 03/24/23 [History Last Taken 06/09/23] dapagliflozin propanediol 10 mg tablet (Farxiga) 10 mg PO DAILY BLOOD SUGARS #30 tabs 04/29/23 [Rx Last Taken Unknown] acetaminophen 650 mg tablet,extended release (8 Hour Pain Reliever) 1,300 mg PO QHS PRN PAIN 06/09/23 [History Last Taken 06/08/23] metformin 500 mg tablet,extended release 24 hr 2,000 mg PO DAILY BLOOD SUGARS 06/09/23 [History Last Taken 06/09/23] omeprazole 40 mg capsule,delayed release 40 mg PO BID ACID REFLUX 06/09/23 [History Last Taken 06/09/23] Allergy/AdvReac Type Severity Reaction Status Date / Time Calcium Channel Blocking Allergy Rash Verified 06/09/23 12:21 Agent Dilt [Calcium Channel Blocking Agents-Win] Family History Mother CAD (coronary artery disease) Brother hyperlipidemia Brother Hypertension Father CAD (coronary artery disease) Surgical History Bioprosthetic mitral valve replacement, current hospitalization History of cardiac catheterization History of left heart catheterization (LHC) (~07/19/20) History of mitral valve replacement with mechanical valve (~09/29/01) History of total left hip replacement Hx of colonoscopy Hx of dilation and curettage Hx of inguinal hernia repair Hx of lithotripsy 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 Vital Signs Vital Signs Vital Signs: 06/09/23 12:21 06/09/23 12:25 06/09/23 18:25 Temperature 98.0 F Temperature Source Temporal Pulse Rate 63 74 Pulse Strength Respiratory Rate 14 16 Respiratory Effort Respiratory Depth Respiratory Pattern Blood Pressure 91/65 116/63 Blood Pressure Mean 73 80 Blood Pressure Source Blood Pressure Position Blood Pressure Location Pulse Ox 97 99 Oxygen Delivery Method Room Air 06/09/23 21:19 06/09/23 22:00 06/09/23 22:00 Temperature 98.5 F Temperature Source Oral Pulse Rate 86 Pulse Strength Normal (2+) Respiratory Rate 17 Respiratory Effort Normal Non-Labored Respiratory Depth Normal Respiratory Pattern Normal Blood Pressure 99/49 L Blood Pressure Mean 65 Blood Pressure Source Monitor Blood Pressure Position Semi-Fowlers Blood Pressure Location Left Arm Pulse Ox 97 Oxygen Delivery Method Room Air Room Air 06/09/23 21:35 06/10/23 04:00 06/10/23 08:18 Temperature 98.6 F 98.1 F Temperature Source Oral Oral Pulse Rate 85 89 Pulse Strength Respiratory Rate 18 18 Respiratory Effort Respiratory Depth Respiratory Pattern Blood Pressure 99/54 L 104/60 Blood Pressure Mean 69 74 Blood Pressure Source Monitor Monitor Blood Pressure Position Semi-Fowlers Blood Pressure Location Right Arm Pulse Ox 98 97 94 Oxygen Delivery Method Room Air Room Air Room Air Weight Weight: 106 lb 0.677 oz Body Mass Index (BMI) 20.7 Physical Exam Narrative General -A&Ox3, NAD, appears stated age. Vital signs stable, afebrile. Respiratory -normal work of breathing, no intercostal retractions. CV -pulses regular, brisk capillary refill ?4 limbs. Abdomen-soft, nontender, nondistended. No guarding, rigidity, rebound tenderness. Musculoskeletal/neurologic -full range of motion nontender throughout bilateral upper extremities, right lower extremity with full sensation and strength in all dermatomes and myotomes. No midline cervical tenderness. Left lower extremity-no obvious deformity. Pain with logroll of the left lower extremity. Nontender throughout the left knee femoral shaft, tibial shaft and left foot/ankle. 3 x 3 x 3 cm subcutaneous fluctuance noted about the posterior lateral hip incision which is nonerythematous and nontender. Brisk capillary refill. Sensation intact light touch L3-S1 dermatomes. DF, PF, EHL intact. DP, PT 2+. Pelvis is stable, nontender. Skin is intact without lacerations, abrasions. No ecchymosis noted. Lab / Micro Data 06/10/23 06:15 06/10/23 06:15 Labs: Laboratory Results - last 24 hr 06/09/23 14:25: WBC 8.3, RBC 4.60, Hgb 14.0, Hct 43.7, MCV 95.0, MCH 30.4, MCHC 32.0, RDW Std Deviation 54.9 H, RDW Coeff of Tk 15.9 H, Plt Count 245, MPV 11.8, Immature Gran % (Auto) 1.000 H, Neut % (Auto) 86.2 H, Lymph % (Auto) 6.7 L, Jenkins % (Auto) 5.5, Eos % (Auto) 0.1, Baso % (Auto) 0.5, Absolute Neuts (auto) 7.2, Absolute Lymphs (auto) 0.56 L, Nucleated RBC % 0, Differential Comment SEE COMMENT, Platelet Estimate ADEQUATE, RBC Morphology N CHROM, Anisocytosis RARE, Macrocytosis RARE, PT 19.8 H, INR 1.7, Sodium 137, Potassium 5.0, Chloride 107, Carbon Dioxide 21.0, Anion Gap 9, BUN 22 H, Creatinine 1.04 H, Estim Creat Clear Calc 33.57, Est GFR (MDRD) Af Amer 66, Est GFR (MDRD) Non-Af 55 L, BUN/Creatinine Ratio 21.2 H, Glucose 578 H*, Calcium 9.0, Total Bilirubin 1.10 H, AST 11 L, ALT 18, Alkaline Phosphatase 95, Total Protein 6.6, Albumin 3.2, Globulin 3.4, Albumin/Globulin Ratio 0.9 06/09/23 19:14: POC Glucose > 500 H* 06/09/23 21:25: POC Glucose 368 H 06/10/23 05:33: POC Glucose 215 H 06/10/23 06:15: WBC 4.3 L, RBC 4.06 L, Hgb 12.5, Hct 38.4, MCV 94.6, MCH 30.8, MCHC 32.6, RDW Std Deviation 54.8 H, RDW Coeff of Tk 15.7 H, Plt Count 194, MPV 12.0, Immature Gran % (Auto) 1.400 H, Neut % (Auto) 68.1, Lymph % (Auto) 17.5 L, Jenkins % (Auto) 10.0, Eos % (Auto) 2.3, Baso % (Auto) 0.7, Absolute Neuts (auto) 2.9, Absolute Lymphs (auto) 0.75 L, Nucleated RBC % 0, PT 18.0 H, INR 1.5, Sodium 140, Potassium 3.1 L, Chloride 111 H, Carbon Dioxide 22.0, Anion Gap 7, BUN 15, Creatinine 0.47 L, Estim Creat Clear Calc 34.91, Est GFR (MDRD) Af Amer 166, Est GFR (MDRD) Non-Af 137, BUN/Creatinine Ratio 31.9 H, Glucose 223 H, Calcium 8.7, Phosphorus 2.2 L, Magnesium 1.7, Total Bilirubin 0.80, AST 14 L, ALT 14, Alkaline Phosphatase 77, Total Protein 5.6 L, Albumin 2.4 L, Globulin 3.2, Albumin/Globulin Ratio 0.8 L Radiology Impression Hip/Pelvis X-Ray 06/09/23 13:30 IMPRESSION: Nondisplaced fractures of the medial portions of the left superior and inferior pubic rami. Status post left total hip replacement. Electronically Signed: Abelino Davenport MD at 14:00 EDT , Abdomen/Pelvis CT 06/09/23 14:16 IMPRESSION: Periprosthetic fracture of the left proximal femur with surrounding intramuscular hematoma and suspicion for mild active contrast extravasation. Small subcutaneous fluid collection lateral to the left hip arthroplasty, possible abscess. Mild T12 compression fracture. Mild hiatal hernia. Rectal wall thickening with perirectal edema from trauma or inflammation. Cholelithiasis. Small right renal cyst. Electronically Signed: Kimberly Cortez MD at 16:02 EDT , ADDENDUM: 06/09/23 1629 IMPRESSION: Periprosthetic fracture of the left proximal femur with surrounding intramuscular hematoma and suspicion for mild active contrast extravasation. Small subcutaneous fluid collection lateral to the left hip arthroplasty, possible abscess. Mild T12 compression fracture. Mild hiatal hernia. Rectal wall thickening with perirectal edema from trauma or inflammation. Cholelithiasis. Small right renal cyst. N.B. : Sony Diaz DO, confirmed on 06/09/2023 16:22:43 (ET) that the healthcare facility has received the radiology report. Electronically Signed: Kimberyl Cortez MD at 16:02 EDT , Assessment & Plan Assessment/Plan (1) Periprosthetic fracture around internal prosthetic left hip joint: QUALIFIERS: Encounter type: initial encounter Qualified Code(s): M97.02XA - Periprosthetic fracture around internal prosthetic left hip joint, initial encounter PLAN: Patient sustained a [employer] periprosthetic femur fracture of the left total hip prosthesis. Stem appears to be stable on films. We will mobilize the patient with physical therapy with plans for our nonoperative management. She will be touchdown weightbearing left lower extremity with no active abduction x6 weeks. Subcutaneous fluid collection seen on CT scan is felt to be a seroma, I would recommend benign neglect at this time. Okay to to continue therapeutic Coumadin. Patient will need retirement facility placement due to limited weightbearing and social circumstances Follow-up with Dr. Piper in 1-2 weeks with x-rays I will sign off at this time. Please not hesitate to call if any questions or concerns arise. Thank you for this consultation.
[2023-06-10] MEDS: Colestipol 1 GM TABLET PO (11:29)
[2023-06-10 11:50] LABS: Bedside Glucose 257 mg/dL (74-106)
--- NOTE | 2023-06-10 14:07 | CASEMGMT ---
KONG PALACIO Assessment: Face to Face with pt for initial transition planning/care coordination assessment. KONG PALACIO introduced self and role at [facility], pt voices understanding and consents to assessment. Pt is A&O x4 and answers all questions appropriately at this time. Care providers, pharmacy, and demographics verified/updated. Admitting Dx: Periprosthetic Hip Fracture PCP: Joann Specialists: Chente (Clinical Care Leader), Manager Of Regulatory Affairs (Mia) Preferred Pharmacy:[facility] ([place] Insurance: [facility] Prescription Benefit: yes LNOK: Ni Higgins (Daughter) Living Will/HCPOA: Yes and Yes; HCPOA is pt's cousin, Jatin Baldwin Living Arrangements: Pt lives home alone in a 2 1/2 story home, [facility]. 4 steps w/railing to enter and various other stairways with multiple steps throughout home. Pt. states prior to this admission, she was ambulating these stairs well. Pt. states she is independent in all ADLs/IADLs. Transportation: Pt states he daughter took her car keys from her and now assists her with transportation. DME: Shower chair, cane, crutches, grab bars, hand held shower, walker, medical alert system, glucometer/supplies. Pt. denies need for additional DME at this time. HHC/SNF: Pt. states she was at [facility] in [place] in September 2022 and at another SNF in [place] in December 2022 (she does not want to go back to either of these). Pt states she has had HHC through [facility] and [facility]. Pt states she is willing to go to SNF for a short term. Pt states no further concerns/needs. CM to follow. Advised pt to ask CM if any further question/concerns/needs arise, voices understanding. Pt Goal: SNF for rehab Plan: SNF. Updated SW
[2023-06-10 14:13] VITALS: BP 107/62; PULSE 65; RESP 18; TEMP 37.1; O2SAT 96
--- NOTE | 2023-06-10 14:49 | CASEMGMT ---
Social Work - Advanced Directive Validation Patient has POAHC and LW on file in the computer. Met with patient to verify as accurate. Patient reports forms are accurate and has no desire to make any changes, despite comments patient made about 2nd POC not having a lot of time to give to patient. First POAHC is Leonides Baldwin, patient's cousin, lives locally and supportive. ([phone]). This selling underwriter added Leonides to patient's demographic data. Second POAHC is Son León Owens, who lives in [place] ([phone]) -DAVIDSON Coffey
--- NOTE | 2023-06-10 14:53 | CASEMGMT ---
Social Work - Discharge Planning This typewriter mechanic received report of need for SNF stay at discharge. Patient lives alone, has inoperable hip fracture, and is currently reported as TTWB status for 6 weeks. Met with patient, introducing to self and social work role. RN HAKEEM France leaving room as this typewriter mechanic entering. Patient reports history of time at [facility] and [facility] in the past. Provided patient list of SNF's generated from [facility], including Medicare star ratings/quality resource data/geographical region in the patient's insurance network. Patient reviewed the list and chose: 1 - [facility] and 2 - [facility]. This typewriter mechanic verified advanced directives as accurate. As far as supports go, the patient reports to have 4 children: León ([phone], lives in [place]), Leonardo (live in [place] but doesn't come around much), Ni ([phone]), lives local but has health issues), and Ludmila Mendoza ([phone], lives local, still works). Patient reports the person who is most available is patient's POC an cousin, Leonides Baldwin ([phone]). Reports Leonides has been my power of banking attorney for 10 years since patient's 10 years ago. 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 Supportive listening and reflection offered. Notified Adriana, discharge vp ad products and planning of SNF choices. Message left for the patient's POAHC with this typewriter mechanic's name and number should the POC have questions. Patient reported the POC expressed wanting to be kept in the loop, that patient did update the POC, but okay for this typewriter mechanic to also reach out. PLAN: Short term SNF, pending PT/OT evaluations and insurance precertification at an accepting SNF. Looking at [facility] first, then [facility] facilities. -MAIA Coffey
--- NOTE | 2023-06-10 16:05 | CHAPLAIN ---
Type of Pastoral Visit _x__ Initial Visit ___ Follow-up Visit ___ On-call Visit ___ General Patient Visit ___ Spiritual Assessment ___ Family Conference ___ Bereavement ___ Rapid Response ___ Code Blue ___ Other (describe below) Pastoral Care Referral From _x__ Patient ___ Family ___ Nurse ___ Physician ___ Hot Wort Settler ___ Scrap Worker ___ Other (describe below) Sacrament/Intervention _x__ Active listening ___ Anointing ___ Restorationism ___ Bereavement ___ Communion _x__ Reyna exploration ___ _x__ Life review _x__ Prayer ___ Reconciliation ___ Sacrament of Sick _x__ Supportive presence ___ Wedding ___ Other (describe below) Pastoral Comments patient is ready to talk about her distress with changes in health over the last months; pt adamantly states that she does not want to go to a detention and wants to remain independent; pt is at odds with her family per her report over this idea; pt is asked several questions leading to some reflection on how to handle the changes or adapt to new realities; pt responds with several things that she still enjoys and several things that she can no longer enjoy; reflection of how to look at the blessings of life more than the challenges that discourage; pt is of the [employer] reyna and is invited into the consideration of how reyna and prayer can help; presence and prayer are given and pt notes her appreciation; therapy team is waiting to evaluate pt at this time
[2023-06-10] MEDS: Potassium Chloride Oral Tablet 20 MEQ 40 MEQ PO (16:14)
[2023-06-10 16:38] LABS: Bedside Glucose 364 mg/dL (74-106)
[2023-06-10 20:25] VITALS: BP 112/69; PULSE 60; RESP 18; TEMP 36.6; O2SAT 97
[2023-06-10] MEDS: Insulin Glargine-YFGN 100 UNIT/ML Pen 15 UNIT SC (20:32)
[2023-06-10] MEDS: DiphenhydrAMINE 25 MG Capsule 50 MG PO (20:33)
[2023-06-10] MEDS: Atorvastatin Calcium 40 MG Tablet PO (20:33)
[2023-06-10 23:34] LABS: Bedside Glucose 260 mg/dL (74-106)
[2023-06-11 03:18] VITALS: BP 108/73; PULSE 71; RESP 18; TEMP 36.6; O2SAT 95
[2023-06-11] MEDS: Enoxaparin 60 MG/0.6 ML Syringe 50 MG SC ×2 (06:23→17:26)
[2023-06-11] MEDS: Gemfibrozil 600 MG Tablet PO ×2 (06:25→16:57)
[2023-06-11 06:40] LABS: International Normalized Ratio 1.6; Prothrombin Time (Protime)PT. 18.7 SECONDS (11.7-14.9)
[2023-06-11 06:48] LABS: Bedside Glucose 90 mg/dL (74-106)
[2023-06-11 07:09] LABS: Anion Gap 7 (5-15); BUN 23 mg/dL (7-18); BUN/Creat Ratio 60.8 RATIO (10-20); Calcium,Total 9.1 mg/dL (8.5-10.1); Chloride 112 mmol/L (98-107); Creatinine, Serum 0.38 mg/dL (0.55-1.02); EST Glomerular Filtration Rate 176 mL/min (>60); Est Glom Filt Rate - Afr Amer 213 mL/min (>60); Estimated Creatinine Clearance 34.91 ml/min; Glucose 94 mg/dL (74-106); Magnesium 1.7 mg/dL (1.6-2.6); Potassium 3.9 mmol/L (3.5-5.1); Sodium Level 142 mmol/L (136-145)
--- NOTE | 2023-06-11 07:38 | PN.HOSP_ITS ---
Reason for Visit Reason for Visit: Diagnoses Periprosthetic fracture around internal prosthetic left hip joint, initial enco unter (06/09/23) Difficulty in walking, not elsewhere classified (06/09/23) Abnormal coagulation profile (06/09/23) Subjective Subjective Pain in right hip when standing up. Objective Data Objective Data Vital Signs: Vital Signs Temp Pulse Resp BP Pulse Ox O2 Del Method 36.6 C 71 18 108/73 95 Room Air 06/11/23 03:18 06/11/23 03:18 06/11/23 03:18 06/11/23 03:18 06/11/23 03:18 06/11/23 03:18 Oxygen Delivery Method Room Air Weight: 48.1 kg Body Mass Index (BMI) 20.7 Intake & Output: Intake and Output for Last 24 Hours 06/09/23 06/10/23 06/11/23 23:59 23:59 23:59 Intake Total 500 / 500 Output Total 2500 / 2500 850 / 850 Balance 500 / 500 -2500 / -2500 -850 / -850 Medical Nutrition Assessment Dietitian: Malnutrition Criteria Met Start: 06/10/23 14:56 Freq: Status: Active Protocol: Document 06/10/23 14:56 LO (Rec: 06/10/23 14:56 [id number]) Nutrition Malnutrition Evidence of Malnutrition Exists Yes Malnutrition (severe): Chronic Evidenced By Suboptimal Energy Intake ( Severe),Weight Loss (Severe) Clinical Problem Chronic Disease or Condition Related Malnutrition Etiology severe related to suboptimal appetite Signs/Symptoms as evidenced by <75% intake of estimated needs and 16lbs (13 .1%) weight loss in 6.5 months Status Active Problem Recommendation Dietitian Recommendations/Changes Continue 1800CCD/Cardiac diet to manage medical conditions Continue 120mL Glucerna TID with meals. Lab / Micro Data 06/10/23 06:15 06/11/23 06:15 Labs: Laboratory Results - last 24 hr 06/10/23 06:15: Sodium 140, Potassium 3.1 L, Chloride 111 H, Carbon Dioxide 22.0, Anion Gap 7, BUN 15, Creatinine 0.47 L, Estim Creat Clear Calc 34.91, Est GFR (MDRD) Af Amer 166, Est GFR (MDRD) Non-Af 137, BUN/Creatinine Ratio 31.9 H, Glucose 223 H, Calcium 8.7, Phosphorus 2.2 L, Magnesium 1.7, Total Bilirubin 0.80, AST 14 L, ALT 14, Alkaline Phosphatase 77, Total Protein 5.6 L, Albumin 2.4 L, Globulin 3.2, Albumin/Globulin Ratio 0.8 L 06/10/23 11:27: POC Glucose 257 H 06/10/23 16:13: POC Glucose 364 H 06/10/23 20:29: POC Glucose 260 H 06/11/23 06:15: PT 18.7 H, INR 1.6, Sodium 142, Potassium 3.9, Chloride 112 H, Carbon Dioxide 23.0, Anion Gap 7, BUN 23 H, Creatinine 0.38 L, Estim Creat Clear Calc 34.91, Est GFR (MDRD) Af Amer 213, Est GFR (MDRD) Non-Af 176, BUN/Creatinine Ratio 60.8 H, Glucose 94, Calcium 9.1, Magnesium 1.7 06/11/23 06:23: POC Glucose 90 Physical Exam Const alert and no apparent distress Assessment & Plan Assessment/Plan (1) Periprosthetic fracture around internal prosthetic left hip joint: QUALIFIERS: Encounter type: initial encounter Qualified Code(s): M97.02XA - Periprosthetic fracture around internal prosthetic left hip joint, initial encounter PLAN: Status post mechanical fall CT of the abdomen pelvis shows a periprosthetic hip fracture of the left pro ximal femur with surrounding intramuscular hematoma and suspicion for mild active contrast extravasation Consult ortho Orthopedic surgery evaluated and recommended non-operative mgmt. Touchdown weight bearing LLE with no active abduction for 6 weeks. Follow up with Dr. Weston in 1-2 weeks. 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 Start Lovenox with therapeutic dosing since INR is subtherapeutic at 1.7 Goal INR is 2.5-3.5 We will need to continue Lovenox until Coumadin is therapeutic at above INR goal Continue with warfarin 7.5/d. PLAN: Plan Chronic conditions: * Hypertension-Blood pressures are currently borderline low-We will hold home atenolol and lisinopril-As needed hydralazine * Hyperlipidemia-Continue home statin-Continue home colestipol * DM-2 with current hyperglycemia-Hold home metformin-Continue home Farxiga-We will start low-dose Lantus with 15 units at at [id number]-Cheks * GERD-Continue home PPI * Vitamin D deficiency-Continue vitamin D supplementation VTE prophylaxis: not indicated as pt already anticoagulated. CODE STATUS DNR CCA with no intubation as verified on admission Disposition: to SNF pending selection and insurance approval. Charges/Coding Visit Charges Inpatient E&M: 74894 Subs Hosp L2
[2023-06-11 08:13] VITALS: BP 115/60; PULSE 85; RESP 16; TEMP 36.8; O2SAT 95
[2023-06-11 08:21] VITALS: O2SAT 98
[2023-06-11] MEDS: Cholecalciferol (VIT D3) 25 MCG TABLET (1,000 UNITS) 50 MCG PO (10:17)
[2023-06-11] MEDS: Pantoprazole Sodium 40 MG Tablet PO ×2 (10:18→20:32)
[2023-06-11] MEDS: Polyethylene Glycol 3350 17 GM PACKET PO (10:18)
[2023-06-11] MEDS: Empagliflozin 25 MG Tablet PO (10:18)
--- NOTE | 2023-06-11 10:22 | CASEMGMT ---
Discharge Planning Referral sent via [facility] to [facility]. Adriana Huynh, Discharge Planning Asst.
[2023-06-11] MEDS: Insulin Lispro 100 UNIT/ML INSULN.PEN SC (11:51)
[2023-06-11] MEDS: Colestipol 1 GM TABLET PO (11:52)
[2023-06-11 11:56] VITALS: O2SAT 96
[2023-06-11 12:29] LABS: Bedside Glucose 374 mg/dL (74-106)
[2023-06-11 14:11] VITALS: BP 100/62; PULSE 81; RESP 16; TEMP 36.7; O2SAT 95
[2023-06-11] MEDS: Acetaminophen 500 MG Tablet 1000 MG PO ×2 (14:22→20:32)
--- NOTE | 2023-06-11 15:45 | CASEMGMT ---
Social Work [facility] is able to accept pt and precert has been started. SW met with pt and provided update. Pt is aware. SW requested [facility] call the nursing unit if precert is obtained over the weekend. Plan: [facility], pending precert ADRIENNE Romero
[2023-06-11 16:50] LABS: Bedside Glucose > 500 mg/dL (74-106)
[2023-06-11] MEDS: Insulin Lispro 100 UNIT/ML INSULN.PEN 20 UNIT SC (17:26)
[2023-06-11 20:24] VITALS: BP 106/62; PULSE 55; RESP 18; TEMP 36.7; O2SAT 94
[2023-06-11] MEDS: Insulin Glargine-YFGN 100 UNIT/ML Pen 15 UNIT SC (20:30)
[2023-06-11] MEDS: Atorvastatin Calcium 40 MG Tablet PO (20:31)
[2023-06-11] MEDS: DiphenhydrAMINE 25 MG Capsule 50 MG PO (20:32)
[2023-06-12 00:58] LABS: Bedside Glucose 182 mg/dL (74-106)
[2023-06-12 03:14] VITALS: BP 117/68; PULSE 88; RESP 18; TEMP 36.4; O2SAT 95
[2023-06-12] MEDS: Enoxaparin 60 MG/0.6 ML Syringe 50 MG SC (05:47)
[2023-06-12] MEDS: Gemfibrozil 600 MG Tablet PO (05:48)
[2023-06-12] MEDS: Acetaminophen 500 MG Tablet 1000 MG PO (05:48)
[2023-06-12] MEDS: Insulin Lispro 100 UNIT/ML INSULN.PEN SC ×2 (05:48→11:04)
[2023-06-12 07:08] LABS: Bedside Glucose 296 mg/dL (74-106)
--- NOTE | 2023-06-12 07:52 | PN.HOSP_ITS ---
Reason for Visit Reason for Visit: Diagnoses Periprosthetic fracture around internal prosthetic left hip joint, initial enco unter (06/09/23) Difficulty in walking, not elsewhere classified (06/09/23) Abnormal coagulation profile (06/09/23) Subjective Subjective Pain improved in right hip. No events. Objective Data Objective Data Vital Signs: Vital Signs Temp Pulse Resp BP Pulse Ox O2 Del Method 36.4 C L 88 18 117/68 95 Room Air 06/12/23 03:14 06/12/23 03:14 06/12/23 03:14 06/12/23 03:14 06/12/23 03:14 06/12/23 03:15 Oxygen Delivery Method Room Air Weight: 48.1 kg Body Mass Index (BMI) 20.7 Intake & Output: Intake and Output for Last 24 Hours 06/10/23 06/11/23 06/12/23 23:59 23:59 23:59 Output Total 2500 / 2500 1250 / 1250 500 / 500 Balance -2500 / -2500 -1250 / -1250 -500 / -500 Medical Nutrition Assessment Dietitian: Malnutrition Criteria Met Start: 06/10/23 14:56 Freq: Status: Active Protocol: Document 06/10/23 14:56 LO (Rec: 06/10/23 14:56 LO [id number]) Nutrition Malnutrition Evidence of Malnutrition Exists Yes Malnutrition (severe): Chronic Evidenced By Suboptimal Energy Intake ( Severe),Weight Loss (Severe) Clinical Problem Chronic Disease or Condition Related Malnutrition Etiology severe related to suboptimal appetite Signs/Symptoms as evidenced by <75% intake of estimated needs and 16lbs (13 .1%) weight loss in 6.5 months Status Active Problem Recommendation Dietitian Recommendations/Changes Continue 1800CCD/Cardiac diet to manage medical conditions Continue 120mL Glucerna TID with meals. Lab / Micro Data 06/10/23 06:15 06/11/23 06:15 Labs: Laboratory Results - last 24 hr 06/11/23 11:46: POC Glucose 374 H 06/11/23 16:28: POC Glucose > 500 H* 06/11/23 20:28: POC Glucose 182 H 06/12/23 05:47: POC Glucose 296 H Physical Exam Const alert, oriented x3, no apparent distress, average body habitus and well nourished Constitutional Narrative: Older white female, sitting up in bed, appears comfortable and nontoxic, very pleasant General Appearance: cooperative HEENT normocephalic, head/scalp atraumatic, hearing grossly normal bilaterally and moist oral mucous membranes Resp normal respiratory effort, no retractions, no use of accessory muscles and clear to auscultation bilaterally Auscultation: Negative for rales, rhonchi or wheezes Cardio regular rate, S1 normal heart sound, S2 normal heart sound, no murmurs, no rub and no gallops; Negative for no clicks Cardio Narrative: Irregularly irregular rhythm, positive click GI normal to inspection, nondistended, normoactive bowel sounds, soft to palpation and non-tender Extremity no clubbing, cyanosis or edema Extremity Narrative: Pedal pulses are 2+ Neuro oriented x3, CN's II-XII intact bilaterally and no focal motor deficits Speech: speech normal Psych affect normal Psych Narrative: Contact is good, patient is pleasant Assessment & Plan Assessment/Plan (1) Periprosthetic fracture around internal prosthetic left hip joint: QUALIFIERS: Encounter type: initial encounter Qualified Code(s): M97.02XA - Periprosthetic fracture around internal prosthetic left hip joint, initial encounter PLAN: Status post mechanical fall CT of the abdomen pelvis shows a periprosthetic hip fracture of the left proximal femur with surrounding intramuscular hematoma and suspicion for mild active contrast extravasation Consult ortho Orthopedic surgery evaluated and recommended non-operative mgmt. Touchdown weight bearing LLE with no active abduction for 6 weeks. Follow up with Dr. Weston in 1-2 weeks. 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 Start Lovenox with therapeutic dosing since INR is subtherapeutic at 1.7 Goal INR is 2.5-3.5 We will need to continue Lovenox until Coumadin is therapeutic at above INR goal Continue with warfarin 5/d. PLAN: Plan Chronic conditions: * Hypertension-Blood pressures are currently borderline low-We will hold home atenolol and lisinopril-As needed hydralazine * Hyperlipidemia-Continue home statin-Continue home colestipol * DM-2 with current hyperglycemia-Metformin held due IV contrast from CT on . Increase glargine to 15 BID. * GERD-Continue home PPI * Vitamin D deficiency-Continue vitamin D supplementation VTE prophylaxis: not indicated as pt already anticoagulated. CODE STATUS DNR CCA with no intubation as verified on admission Disposition: to SNF
[2023-06-12 08:00] VITALS: BP 109/66; PULSE 52; RESP 15; TEMP 36.4; O2SAT 96
[2023-06-12 08:56] LABS: International Normalized Ratio 2.3; Prothrombin Time (Protime)PT. 25.4 SECONDS (11.7-14.9)
--- NOTE | 2023-06-12 10:52 | TREXTCAR_ITS ---
Diet Diet Order/Speech Therapy: 06/09/23 20:48 Diet: Cardiac - Heart Healthy Food consistency:: Regular Liquid Consistency:: Regular/Thin Is pt able to select menu?: Yes Diet: Consistent Carb - Calorie Controlled Food consistency:: Regular Liquid Consistency:: Regular/Thin Type of Dietary Supplement:: Glucerna Shake Diet Comments: 120 cc glucerna tid How many daily calories?: 1800 calorie Routine Orders/Code Status Routine Lab Work: INR (Mondays, ) Code Status: DNRCC-A (no intubation. ) Therapies Weight Bearing: Toe-touch weight bearing (right lower extremity.) Extremity Affected:: Right Lower Physical Therapy: Eval and Treat Occupational Therapy: Eval and Treat Problem/Diagnosis (1) Periprosthetic fracture around internal prosthetic left hip joint: Status: Acute Code(s): M97.02XA - Periprosthetic fracture around internal prosthetic left hip joint, initial encounter Plan: Status post mechanical fall CT of the abdomen pelvis shows a periprosthetic hip fracture of the left proximal femur with surrounding intramuscular hematoma and suspicion for mild active contrast extravasation Consult ortho Orthopedic surgery evaluated and recommended non-operative mgmt. Touchdown weight bearing LLE with no active abduction for 6 weeks. Follow up with Dr. Weston in 1-2 weeks. Current pain medication PT/OT consultation Case management/social work consultation for potential placement or discharge needs with regards to therapy services and home health (2) Subtherapeutic international normalized ratio (INR): Status: Acute Code(s): R79.1 - Abnormal coagulation profile Plan: For PAF/aortic valve stenosis/mechanical mitral valve TAVR performed on 09/18/2020 Mechanical mitral valve placement in 09/29/2001 Continue home Coumadin with therapuetic enoxaparin until INR 3. Start Lovenox with therapeutic dosing since INR is subtherapeutic at 1.7 Goal INR is 2.5-3.5 We will need to continue Lovenox until Coumadin is therapeutic at above INR goal Continue with warfarin 5/d. Plan Chronic conditions: * Hypertension-Blood pressures are currently borderline low-We will hold home atenolol and lisinopril-As needed hydralazine * Hyperlipidemia-Continue home statin-Continue home colestipol * DM-2 with current hyperglycemia-Metformin held due IV contrast from CT on . Increase glargine to 15 BID. * GERD-Continue home PPI * Vitamin D deficiency-Continue vitamin D supplementation VTE prophylaxis: not indicated as pt already anticoagulated. CODE STATUS DNR CCA with no intubation as verified on admission Disposition: to SNF Allergies/Procedures Done in Hospital Allergies Calcium Channel Blocking Agent Dilt [Calcium Channel Blocking Agents-Win] Allergy (Verified 06/09/23 12:21) Rash Procedures: None Type of Care/Length of Stay Estimated LOS: Convalescent Care Less Than 30 days Type of Care Needed: Skilled Rehab Potential: Fair Prognosis: Good Additional Orders/Day of Discharge Day of Discharge: 06/12/23 Dietary and Speech Recommendations Dietitian Recommendations/Changes: Continue 1800 consistent cho/jenelle controlled/Cardiac diet to manage medical conditions Continue 120mL Glucerna TID with meals. Discharge Plan Admission Admit Date/Time: 06/09/23 16:54 Primary Reason for Your Visit: periprosthetic fracture around internal prosthetic hip joint, right. Attending Provider: David Garvey Primary Care Provider: Gwen David Consulting Providers: Apollo Loyd; Monique Angel Instructions Additional Instructions / Restrictions: Goal INR is 2.5 to 3.5. Discharge Orders/Prescriptions Prescriptions: New enoxaparin 60 mg/0.6 mL Syringe 50 mg subcut Q12@0600,1800 Qty: 0 0RF insulin glargine-yfgn 100 unit/mL (3 mL) Insulin Pen 15 unit subcut BID Qty: 0 0RF insulin lispro [Humalog KwikPen Insulin] 100 unit/mL Insulin Pen See Protocol subcut TIDAC Qty: 0 0RF Protocol: 4. Sliding Scale Insulin High-Med Dosing Condition: 150-199 mg/dl = 2 units Condition: 200-259 mg/dl = 4 units Condition: 260-324 mg/dl = 6 units Condition: 325-374 mg/dl = 8 units Condition: 375-409 mg/dl = 10 units Condition: 410-449 mg/dl = 11 units Condition: Greater than 449 call physician Protocol Text: - Use for Total Daily Dose of Insulin 56-80 units - Patient who are insulin resistant or septic HIGH MEDIUM DOSING ALGORITHM polyethylene glycol 3350 17 gram Powder In Packet 17 g PO DAILY Qty: 0 0RF lidocaine 5 % Adhesive Patch,Medicated 1 patch topical DAILY Qty: 0 0RF Protocol: *Topical Application Instructions APPLICATION INSTRUCTIONS: right hip Remove Patch 1 patch topical DAILY@2200 Qty: 0 0RF Continued atorvastatin 40 mg tablet 40 mg PO DAILY colestipol [Colestid] 1 gram tablet 1 g PO DAILY gemfibrozil [Lopid] 600 MG tablet 600 mg PO BIDAC diphenhydramine HCl [Benadryl] 25 mg Capsule 50 mg PO QHS cholecalciferol (vitamin D3) [Vitamin D3] 50 mcg (2,000 unit) Capsule 50 mcg PO DAILY omeprazole 40 mg capsule,delayed release(DR/EC) 40 mg PO BID acetaminophen [8 Hour Pain Reliever] 650 mg tablet extended release 1,300 mg PO QHS PRN (Reason: PAIN ) Patient Comments: PT STATES THEY NORMALLY TAKE TWO TABLETS EVERY NIGHT meclizine 12.5 mg tablet 12.5 mg PO TID PRN (Reason: DIZZINESS ) Changed warfarin 5 mg tablet 5 mg PO DAILY Qty: 30 0RF Protocol: Dose Management Condition: Wednesday Dose/Route: 5 mg Instruction: 1 x 5 mg tablet Condition: Wednesday Dose/Route: 7.5 mg Instruction: 1.5 x 5 mg tablets Condition: Wednesday Dose/Route: 7.5 mg Instruction: 1.5 x 5 mg tablets Condition: Wednesday Dose/Route: 5 mg Instruction: 1 x 5 mg tablet Condition: Dose/Route: 5 mg Instruction: 1 x 5 mg tablet Condition: Wednesday Dose/Route: 5 mg Instruction: 1 x 5 mg tablet Condition: Wednesday Dose/Route: 5 mg Instruction: 1 x 5 mg tablet Protocol Text: Adjustment Start Date: Wednesday08/13/20 INR Value: 2.90 INR Date: 07/31/20 Held metformin 500 mg tablet extended release 24 hr 2,000 mg PO DAILY Hold Instructions: Resume on 06/14/23. Discontinued atenolol 50 mg tablet 75 mg PO DAILY warfarin 3 mg tablet 3 mg PO WE lisinopril 20 mg tablet 20 mg PO DAILY Farxiga 10 mg tablet 10 mg PO DAILY Qty: 30 11RF Patient Comments: PT STATES THE DOCTORS ARE VERY INSISTENT THAT I TAKE THIS BUT I JUST DON'T. I HAVE IT BUT I HAVEN'T TAKEN IT FOR A VERY LONG TIME. WHEN ASKED WHY THEY DON'T TAKE IT THE PT STATED I JUST DON'T WANT TO TAKE IT. PT ALSO STATED THAT IT DOESN'T GIVE THEM ANY SIDE EFFECTS OR WEIRD FEELINGS PT JUST CHOOSES TO NOT TAKE IT. 06-09-23 Referrals / Follow Up: Gwen David MD [Primary Care Provider] - Within 2 Weeks Konstantin Weston DO [Med Staff - Active Staff] - Within 2 Weeks Disposition Disposition (needs filled in before D/C Order can be placed): Long Term Facility (1) Periprosthetic fracture around internal prosthetic left hip joint Qualifiers: Encounter type: initial encounter Qualified Code(s): M97.02XA - Periprosthetic fracture around internal prosthetic left hip joint, initial encounter
[2023-06-12] MEDS: Insulin Glargine-YFGN 100 UNIT/ML Pen 15 UNIT SC (10:58)
--- NOTE | 2023-06-12 11:01 | DS.PCM_ITS ---
Providers Date of Admission: 06/09/23 Primary Care Physician: Dr. Gwen David MD Consultations 06/09/23 20:48 Consult: Orthopedics Routine Consulting Provider: Apollo Loyd Reason for Consult: Periprosthetic hip fracture EMERGENT Consult: No MD Notified: Yes Date Notified: 06/09/23 Time Notified: 16:57 Method of Notification: Verbal Reason For Visit: PERIPROSTHETIC HIP FRACTURE Diagnosis Discharge Diagnosis (1) Periprosthetic fracture around internal prosthetic left hip joint: Status: Acute Code(s): M97.02XA - Periprosthetic fracture around internal prosthetic left hip joint, initial encounter Qualifiers: Encounter type: initial encounter Qualified Code(s): M97.02XA - Periprosthetic fracture around internal prosthetic left hip joint, initial encounter Plan: Status post mechanical fall CT of the abdomen pelvis shows a periprosthetic hip fracture of the left proximal femur with surrounding intramuscular hematoma and suspicion for mild active contrast extravasation Consult ortho Orthopedic surgery evaluated and recommended non-operative mgmt. Touchdown weight bearing LLE with no active abduction for 6 weeks. Follow up with Dr. Weston in 1-2 weeks. Current pain medication PT/OT consultation Case management/social work consultation for potential placement or discharge needs with regards to therapy services and home health (2) Subtherapeutic international normalized ratio (INR): Status: Acute Code(s): R79.1 - Abnormal coagulation profile Plan: For PAF/aortic valve stenosis/mechanical mitral valve TAVR performed on 09/18/2020 Mechanical mitral valve placement in 09/29/2001 Continue home Coumadin with therapuetic enoxaparin until INR 3. Start Lovenox with therapeutic dosing since INR is subtherapeutic at 1.7 Goal INR is 2.5-3.5 We will need to continue Lovenox until Coumadin is therapeutic at above INR goal Continue with warfarin 5/d. Plan Chronic conditions: * Hypertension-Blood pressures are currently borderline low-We will hold home atenolol and lisinopril-As needed hydralazine * Hyperlipidemia-Continue home statin-Continue home colestipol * DM-2 with current hyperglycemia-Metformin held due IV contrast from CT on . Increase glargine to 15 BID. * GERD-Continue home PPI * Vitamin D deficiency-Continue vitamin D supplementation VTE prophylaxis: not indicated as pt already anticoagulated. CODE STATUS DNR CCA with no intubation as verified on admission Disposition: to SNF Medications at Discharge Home Medications gemfibrozil 600 mg tablet (Lopid) 600 mg PO BIDAC CHOLESTEROL 07/10/13 atorvastatin 40 mg tablet 40 mg PO DAILY CHOLESTEROL 12/21/17 meclizine 12.5 mg tablet 12.5 mg PO TID PRN DIZZINESS 09/30/20 cholecalciferol (vitamin D3) 50 mcg (2,000 unit) capsule (Vitamin D3) 50 mcg PO DAILY SUPPLEMENT 10/14/22 diphenhydramine HCl 25 mg capsule (Benadryl) 50 mg PO QHS SLEEP 10/14/22 colestipol 1 gram tablet (Colestid) 1 g PO DAILY CHOLESTEROL 03/24/23 acetaminophen 650 mg tablet,extended release (8 Hour Pain Reliever) 1,300 mg PO QHS PRN PAIN 06/09/23 metformin 500 mg tablet,extended release 24 hr 2,000 mg PO DAILY BLOOD SUGARS 06/09/23 omeprazole 40 mg capsule,delayed release 40 mg PO BID ACID REFLUX 06/09/23 Remove Patch 1 patch topical DAILY@2200 ##0 06/12/23 enoxaparin 60 mg/0.6 mL subcutaneous syringe 50 mg (0.5 mL) subcut Q12@0600,1800 #0 mL 06/12/23 insulin glargine-yfgn 100 unit/mL (3 mL) subcutaneous pen 15 unit (0.15 mL) subcut BID #0 mL 06/12/23 insulin lispro 100 unit/mL subcutaneous pen (Humalog KwikPen (U-100) Insulin) See Protocol subcut TIDAC #0 mL 06/12/23 lidocaine 5 % topical patch 1 patch topical DAILY #0 ea 06/12/23 polyethylene glycol 3350 17 gram oral powder packet 17 g PO DAILY #0 ea 06/12/23 warfarin 5 mg tablet 5 mg PO DAILY BLOOD THINNER #30 tabs 06/12/23 Hospital Course Operations None Procedures None Summary of Care Provided Minutes Spent on Discharge: 35 Hospital Course: 73-year-old female had a fall and had a periprosthetic right hip fracture. Appear to be stable from orthopedics perspective and did not recommend any surgical intervention though did recommend toe-touch weightbearing in the follow-up with orthopedics as outpatient. Patient did pain but did not want narcotics so we try to utilize acetaminophen as well Lidoderm. Patient also subtherapeutic INR. Patient does have mechanical mitral valve and does require an INR of 2.3-3.5. Patient was started on weight-based enoxaparin as well as her warfarin dose was increased to 7.5. It is gone up to 2.3 though normal for most instances its not actually normal for a mechanical heart valve and numbers will need to be between 2.5-3.5. Patient to be discharged to [facility] facility in stable condition Medical Records Data Medical Nutrition Assessment Dietitian: Malnutrition Criteria Met Start: 06/10/23 14:56 Freq: Status: Active Protocol: Document 06/10/23 14:56 LO (Rec: 06/10/23 14:56 [id number]) Nutrition Malnutrition Evidence of Malnutrition Exists Yes Malnutrition (severe): Chronic Evidenced By Suboptimal Energy Intake ( Severe),Weight Loss (Severe) Clinical Problem Chronic Disease or Condition Related Malnutrition Etiology severe related to suboptimal appetite Signs/Symptoms as evidenced by <75% intake of estimated needs and 16lbs (13 .1%) weight loss in 6.5 months Status Active Problem Recommendation Dietitian Recommendations/Changes Continue 1800CCD/Cardiac diet to manage medical conditions Continue 120mL Glucerna TID with meals. Weight / BMI Weight Weight: 48.1 kg Body Mass Index (BMI) 20.7 ABG / Lab / Microbiology Data 06/10/23 06:15 06/11/23 06:15 Laboratory: Laboratory Results - last 24 hr 06/11/23 11:46: POC Glucose 374 H 06/11/23 16:28: POC Glucose > 500 H* 06/11/23 20:28: POC Glucose 182 H 06/12/23 05:47: POC Glucose 296 H 06/12/23 07:44: PT 25.4 H, INR 2.3 Meaningful Use Info Meaningful Use Diagnoses (Choose all that apply): None applicable Discharge Plan Admission Admit Date/Time: 06/09/23 16:54 Primary Reason for Your Visit: periprosthetic fracture around internal prosthetic hip joint, right. Attending Provider: David Garvey Primary Care Provider: Gwen David Consulting Providers: Apollo Loyd; Monique Angel Instructions Additional Instructions / Restrictions: Goal INR is 2.5 to 3.5. Discharge Orders/Prescriptions Prescriptions: New enoxaparin 60 mg/0.6 mL Syringe 50 mg subcut Q12@0600,1800 Qty: 0 0RF insulin glargine-yfgn 100 unit/mL (3 mL) Insulin Pen 15 unit subcut BID Qty: 0 0RF insulin lispro [Humalog KwikPen Insulin] 100 unit/mL Insulin Pen See Protocol subcut TIDAC Qty: 0 0RF Protocol: 4. Sliding Scale Insulin High-Med Dosing Condition: 150-199 mg/dl = 2 units Condition: 200-259 mg/dl = 4 units Condition: 260-324 mg/dl = 6 units Condition: 325-374 mg/dl = 8 units Condition: 375-409 mg/dl = 10 units Condition: 410-449 mg/dl = 11 units Condition: Greater than 449 call physician Protocol Text: - Use for Total Daily Dose of Insulin 56-80 units - Patient who are insulin resistant or septic HIGH MEDIUM DOSING ALGORITHM polyethylene glycol 3350 17 gram Powder In Packet 17 g PO DAILY Qty: 0 0RF lidocaine 5 % Adhesive Patch,Medicated 1 patch topical DAILY Qty: 0 0RF Protocol: *Topical Application Instructions APPLICATION INSTRUCTIONS: right hip Remove Patch 1 patch topical DAILY@2200 Qty: 0 0RF Continued atorvastatin 40 mg tablet 40 mg PO DAILY colestipol [Colestid] 1 gram tablet 1 g PO DAILY gemfibrozil [Lopid] 600 MG tablet 600 mg PO BIDAC diphenhydramine HCl [Benadryl] 25 mg Capsule 50 mg PO QHS cholecalciferol (vitamin D3) [Vitamin D3] 50 mcg (2,000 unit) Capsule 50 mcg PO DAILY omeprazole 40 mg capsule,delayed release(DR/EC) 40 mg PO BID acetaminophen [8 Hour Pain Reliever] 650 mg tablet extended release 1,300 mg PO QHS PRN (Reason: PAIN ) Patient Comments: PT STATES THEY NORMALLY TAKE TWO TABLETS EVERY NIGHT meclizine 12.5 mg tablet 12.5 mg PO TID PRN (Reason: DIZZINESS ) Changed warfarin 5 mg tablet 5 mg PO DAILY Qty: 30 0RF Protocol: Dose Management Condition: Wednesday Dose/Route: 5 mg Instruction: 1 x 5 mg tablet Condition: Wednesday Dose/Route: 7.5 mg Instruction: 1.5 x 5 mg tablets Condition: Wednesday Dose/Route: 7.5 mg Instruction: 1.5 x 5 mg tablets Condition: Wednesday Dose/Route: 5 mg Instruction: 1 x 5 mg tablet Condition: Dose/Route: 5 mg Instruction: 1 x 5 mg tablet Condition: Wednesday Dose/Route: 5 mg Instruction: 1 x 5 mg tablet Condition: Wednesday Dose/Route: 5 mg Instruction: 1 x 5 mg tablet Protocol Text: Adjustment Start Date: Wednesday08/13/20 INR Value: 2.90 INR Date: 07/31/20 Held metformin 500 mg tablet extended release 24 hr 2,000 mg PO DAILY Hold Instructions: Resume on 06/14/23. Discontinued atenolol 50 mg tablet 75 mg PO DAILY warfarin 3 mg tablet 3 mg PO WE lisinopril 20 mg tablet 20 mg PO DAILY Farxiga 10 mg tablet 10 mg PO DAILY Qty: 30 11RF Patient Comments: PT STATES THE DOCTORS ARE VERY INSISTENT THAT I TAKE THIS BUT I JUST DON'T. I HAVE IT BUT I HAVEN'T TAKEN IT FOR A VERY LONG TIME. WHEN ASKED WHY THEY DON'T TAKE IT THE PT STATED I JUST DON'T WANT TO TAKE IT. PT ALSO STATED THAT IT DOESN'T GIVE THEM ANY SIDE EFFECTS OR WEIRD FEELINGS PT JUST CHOOSES TO NOT TAKE IT. 06-09-23 Referrals / Follow Up: Gwen David MD [Primary Care Provider] - Within 2 Weeks Konstantin Weston DO [Med Staff - Active Staff] - Within 2 Weeks Disposition Disposition (needs filled in before D/C Order can be placed): Care Home F acility Charges/Coding Visit Charges Inpatient E&M: 15261 Disch Hosp >30min
[2023-06-12] MEDS: Pantoprazole Sodium 40 MG Tablet PO (11:03)
[2023-06-12] MEDS: Polyethylene Glycol 3350 17 GM PACKET PO (11:03)
[2023-06-12] MEDS: Cholecalciferol (VIT D3) 25 MCG TABLET (1,000 UNITS) 50 MCG PO (11:03)
[2023-06-12] MEDS: Empagliflozin 25 MG Tablet PO (11:03)
[2023-06-12] MEDS: Colestipol 1 GM TABLET PO (11:03)
[2023-06-12] MEDS: Insulin Lispro 100 UNIT/ML INSULN.PEN 7 UNIT SC (11:05)
[2023-06-12] MEDS: Lidocaine 5% Patch 1 PATCH TOPICAL (11:05)
[2023-06-12 11:16] LABS: Bedside Glucose 465 mg/dL (74-106)
--- NOTE | 2023-06-12 11:59 | CASEMGMT ---
Social Work [facility] called [facility] yesterday and stated they had precert. SW completed hospital exemption, pt is discharged today to [facility] skilled. Floor staff to follow green sheet. DAVIDSON Schumacher
--- NOTE | 2023-06-12 13:33 | NURSING ---
REPORT CALLED TO [facility]
== END 2023-06-12 13:19 | disposition skilled nursing facility (03) | DRG 536 ==
LOC: ED 14:36 → MS3 17:46
PROVIDERS: Admitting Provider Internal Medicine; Emergency Provider Student in an Organized Health Care Education/Training Program; PCP Internal Medicine
DX: S72.112A Displaced fracture of greater trochanter of left femur, initial encounter for closed fracture (principal); M97.02XA Periprosthetic fracture around internal prosthetic left hip joint, initial encounter; E11.65 Type 2 diabetes mellitus with hyperglycemia; I48.0 Paroxysmal atrial fibrillation; I35.0 Nonrheumatic aortic (valve) stenosis; E55.9 Vitamin D deficiency, unspecified; K21.9 Gastro-esophageal reflux disease without esophagitis; E78.5 Hyperlipidemia, unspecified; W18.39XA Other fall on same level, initial encounter; S70.02XA Contusion of left hip, initial encounter; R79.1 Abnormal coagulation profile; R29.6 Repeated falls; Z66 Do not resuscitate; Z68.20 Body mass index [BMI] 20.0-20.9, adult; Z95.2 Presence of prosthetic heart valve; Z96.642 Presence of left artificial hip joint; Z79.01 Long term (current) use of anticoagulants; Z79.84 Long term (current) use of oral hypoglycemic drugs; Z79.899 Other long term (current) drug therapy
CPT/HCPCS: 36415; 73502; 74177; 80048; 80053; 82962; 83735; 84100; 85025; 85610; 93005; 97110; 97162; 97166; 97530; 97535; 97802; 99285; J7030; J7040; Q9967; A4216

== ENCOUNTER 2023-06-19 05:58 | Emergency (ER) | payer MEDICARE, SELFPAY ==
[2020-12-04 07:04] VITALS: BMI 27.6
[2023-06-19 06:02] VITALS: BP 102/52; PULSE 103; RESP 16; TEMP 36.5; O2SAT 97; BMI 21.9
[2023-06-19 06:06] VITALS: BP 102/52; PULSE 66; RESP 16; TEMP 36.5; O2SAT 97
--- NOTE | 2023-06-19 06:22 | EX.ED.DYSGE1 ---
HPI History of Present Illness Chief Complaint: Lower Extremity Injury Informant: patient, EMS and SNF Narrative Narrative: Patient is a 73-year-old female with past medical history of type 2 diabetes hypertension hyperlipidemia previous mitral valve replacement currently on Coumadin. On June 09 she fell and could not ambulate and was seen in the ER and found to have a periprosthetic fracture with surrounding hematoma. Orthopedics was consulted and they feel this is a nonweightbearing fracture but secondary to pain control patient was admitted and from admission patient was sent to a alf. Patient denies any repeat trauma but states that she is only been given Tylenol for pain and has had persistent pain especially any type of motion of her left hip. She states that hematoma that was near her hip/buttocks has improved but now she has noticed increased swelling down the left leg. Because of the increased swelling and her persistent pain she was sent to the hospital for evaluation [facility] Medical History Abnormal electrocardiogram Abrasion Alcohol use Anemia Angina at rest Arthritis Atherosclerotic heart disease of [place] coronary artery without angina pectoris Atrial fibrillation Back pain Bacteremia Blood infection Cardiology follow-up encounter Depression Dietary restriction Dyslipidemia Encounter for long-term current use of high risk medication Essential hypertension Former smoker Gastric reflux High cholesterol History of atrial fibrillation History of echocardiogram History of hiatal hernia History of irregular heartbeat History of pain when walking History of renal disease History of stress test Hx of fracture of arm Hx of uterine prolapse Hypertension Insulin dependent diabetes mellitus Leg cramps Loss of hearing Mitral valve disorder Murmur, functional Nonrheumatic aortic (valve) stenosis Palpitations Paroxysmal atrial fibrillation Paroxysmal ventricular tachycardia Post-menopausal Premature atrial contraction Premature ventricular contraction Restless legs Shortness of breath on exertion SIRS (systemic inflammatory response syndrome) Type 2 diabetes mellitus Ventricular tachycardia Vertigo Wears glasses Wears partial dentures Home Medications gemfibrozil 600 mg tablet (Lopid) 600 mg PO BIDAC CHOLESTEROL 07/10/13 [History Last Taken 06/09/23] atorvastatin 40 mg tablet 40 mg PO DAILY CHOLESTEROL 12/21/17 [History Last Taken 06/09/23] meclizine 12.5 mg tablet 12.5 mg PO TID PRN DIZZINESS 09/30/20 [History Last Taken 10/20/22] cholecalciferol (vitamin D3) 50 mcg (2,000 unit) capsule (Vitamin D3) 50 mcg PO DAILY SUPPLEMENT 10/14/22 [History Last Taken 06/08/23] diphenhydramine HCl 25 mg capsule (Benadryl) 50 mg PO QHS SLEEP 10/14/22 [History Last Taken 06/08/23] colestipol 1 gram tablet (Colestid) 1 g PO DAILY CHOLESTEROL 03/24/23 [History Last Taken 06/09/23] metformin 500 mg tablet,extended release 24 hr 1,000 mg PO BID BLOOD SUGARS 06/09/23 [History Last Taken 06/09/23] omeprazole 40 mg capsule,delayed release 40 mg PO BID ACID REFLUX 06/09/23 [History Last Taken 06/09/23] Remove Patch 1 patch topical DAILY@2200 ##0 06/12/23 [Rx Last Taken Unknown] insulin lispro 100 unit/mL subcutaneous pen (Humalog KwikPen (U-100) Insulin) See Protocol subcut TIDAC #0 mL 06/12/23 [Rx Last Taken Unknown] lidocaine 5 % topical patch 1 patch topical DAILY #0 ea 06/12/23 [Rx Last Taken Unknown] polyethylene glycol 3350 17 gram oral powder packet 17 g PO DAILY #0 ea 06/12/23 [Rx Last Taken Unknown] warfarin 5 mg tablet 5 mg PO DAILY BLOOD THINNER #30 tabs 06/12/23 [Rx Last Taken 06/08/23] acetaminophen 325 mg capsule 325 mg PO Q4H PRN pain 06/19/23 [History Last Taken Unknown] acetaminophen 500 mg tablet (Acetaminophen Extra Strength) 1,000 mg PO QHS PRN pain 06/19/23 [History Last Taken Unknown] enoxaparin 60 mg/0.6 mL subcutaneous syringe 50 mg subcut DAILY 06/19/23 [History Last Taken Unknown] insulin glargine U-300 conc 300 unit/mL (1.5 mL) subcutaneous pen (Toujeo SoloStar U-300 Insulin) 15 unit subcut DAILY 06/19/23 [History Last Taken Unknown] insulin glargine-yfgn 100 unit/mL (3 mL) subcutaneous pen 15 unit subcut DAILY 06/19/23 [History Last Taken Unknown] insulin lispro 100 unit/mL subcutaneous solution (Humalog U-100 Insulin) 17 unit subcut QPM 06/19/23 [History Last Taken Unknown] methocarbamol 500 mg tablet 500 mg PO 4X/DAY PRN PRN Muscle pain/spasm #40 tabs 06/19/23 [Rx Last Taken Unknown] mirtazapine 15 mg tablet (Remeron) 15 mg PO QHS 06/19/23 [History Last Taken Unknown] oxycodone-acetaminophen 5 mg-325 mg tablet (Percocet) 1 tab PO Q6H PRN pain 7 days #28 tabs 06/19/23 [Rx Last Taken Unknown] Allergy/AdvReac Type Severity Reaction Status Date / Time Calcium Channel Blocking Allergy Rash Verified 06/19/23 06:02 Agent Dilt [Calcium Channel Blocking Agents-Win] Family History Mother CAD (coronary artery disease) Brother hyperlipidemia Brother Hypertension Father CAD (coronary artery disease) Surgical History Bioprosthetic mitral valve replacement, current hospitalization History of cardiac catheterization History of left heart catheterization (LHC) (~07/19/20) History of mitral valve replacement with mechanical valve (~09/29/01) History of total left hip replacement Hx of colonoscopy Hx of dilation and curettage Hx of inguinal hernia repair Hx of lithotripsy 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) Social History Smoking Status: Former smoker alcohol intake: never substance use type: does not use caffeine: Yes Type: coffee Number of servings: 1 what type of physical activity do you participate in: walking frequency: daily duration: 15-30 minutes/day seatbelt use: always do you feel safe at home: Yes ROS ROS ED Constitutional Constitutional ED: Denies chills or fever(s) Eyes Eyes: Denies change in vision ENT ENT ED: Denies sore throat Cardiovascular Cardiovascular: Denies chest pain or palpitations Respiratory/Chest Respiratory/Chest: Denies cough or dyspnea Gastrointestinal Gastrointestinal: Denies abdominal pain, diarrhea, nausea or vomiting Genitourinary Genitourinary ED: Denies dysuria Musculoskeletal Musculoskeletal: Reports other Details: Positive left hip pain Integumentary Reports other Details: Positive left hip hematoma ; Denies rash Neurologic Neurologic: Denies headache(s) or paresthesias Hematologic/Lymphatic Hematologic/Lymphatic: Reports easy bruising; Denies easy bleeding EXAM Physical Exam Const Vital Signs: 06/19/23 06:02 06/19/23 06:06 Temperature 97.7 F L 97.7 F L Temperature Source Temporal Temporal Pulse Rate 103 H 66 Respiratory Rate 16 16 Blood Pressure 102/52 L 102/52 L Blood Pressure Mean 68 68 Pulse Ox 97 97 Oxygen Delivery Method Room Air Room Air Positive well nourished and well developed General Appearance ED: well developed and pallor HEENT HEENT Narrative: Normocephalic atraumatic Eyes PERRL and EOMs intact bilaterally General Eye ED: Yes pale conjunctiva Neck supple Resp normal respiratory effort and clear to auscultation bilaterally Cardio regular rate and regular rhythm Rate: other Other Details: There is a systolic click present consistent with mitral valve replacement Otherwise heart is regular rate and rhythm Radial and carotid pulses are equal and symmetric GI normal to inspection, nondistended, normoactive bowel sounds, non-tender, non-distended and no masses GI Narrative: No voluntary guarding or rigidity No pulsatile mass or fluid wave Auscultation: normoactive bowel sounds Palpation: soft Extremity Extremity Narrative: The left lower extremity is neurovascularly intact. Dorsalis pedis pulses are plus 2 out of 4 bilaterally. Capillary refill is less than 3 seconds bilaterally. Patient has a hematoma that begins around the left greater trochanter/buttocks region and extends down to just above the knee. The compartments however are soft and compressible going against compartment syndrome. Active and passive range of motion is severely limited secondary to pain Neuro oriented x3 and CN's II-XII intact bilaterally Sensorium / Orientation: alert Psych mental status grossly normal Skin Skin Narrative: Hematoma located along the left hip and femur as documented above without overlying erythema or warmth or signs of secondary infection General Skin Exam: pallor MDM MDM MDM Narrative Medical decision making narrative: Patient presented to the ER with stable vitals and awake and alert and denies any repeat trauma. Chart review reveals that she had a hematoma with questionable extravasation on her initial evaluation. According to chart review hematoma was not very large as it was approximately 3 x 3 x 3 cm. Today the soft tissue swelling has tracked down essentially her entire left femur. With concern that there is persistent active bleeding and the fact that chart review shows she is on Coumadin and Lovenox I did elect to repeat laboratory studies to ensure that she is not acute blood loss anemia or persistent bleeding. Differential diagnosis is for acute anemia versus expanding hematoma versus compartment syndrome. As the patient's compartments are soft and compressible I do not feel she has compartment syndrome. As her hemoglobin has changed from 14.1-12.4 this goes against acute anemia requiring blood transfusion. Still based on the significant swelling of the left femur compared to reports in the initial evaluation a CT scan will be obtained to rule out active extravasation. CT scan did show a small area of active bleeding and as patient is on Coumadin because of her mechanical heart valve as well as Lovenox the case will be discussed with vascular surgery to decide on appropriate treatment Vascular surgery states that the vessel was such a small vessel that there will be no benefit in trying to embolize. They do recommend that the Lovenox be discontinued but the Coumadin needs to persist based on her mechanical heart valve. The thigh will be wrapped in an Mario wrap for compression and ice therapy will be provided to help with vasoconstriction. However at this time she is not anemic or requiring her transfusion she does not have compartment syndrome and vascular surgery does not recommend any type of further intervention based on the small vessel that is bleeding so she is safe to return to the alf History & Record Review Discussion w/independent historian: Patient and Family Lab Data Attestation: I reviewed the patient's lab results. Labs: Laboratory Results - last 24 hr 06/19/23 06:30 WBC 7.9 RBC 4.13 L Hgb 12.4 Hct 39.8 MCV 96.4 MCH 30.0 MCHC 31.2 L RDW Std Deviation 53.1 H RDW Coeff of Tk 15.0 H Plt Count 320 MPV 11.0 Immature Gran % (Auto) 1.400 H Neut % (Auto) 78.3 H Lymph % (Auto) 10.3 L Josephine % (Auto) 8.5 Eos % (Auto) 0.4 Baso % (Auto) 1.1 H Absolute Neuts (auto) 6.2 Absolute Lymphs (auto) 0.81 L Nucleated RBC % 0 PT 22.9 H INR 2.0 APTT 35.5 Sodium 139 Potassium 4.0 Chloride 106 Carbon Dioxide 23.0 Anion Gap 10 BUN 20 H Creatinine 0.60 Estim Creat Clear Calc 34.91 Est GFR (MDRD) Af Amer 126 Est GFR (MDRD) Non-Af 104 BUN/Creatinine Ratio 33.4 H Glucose 185 H Calcium 9.2 Radiography Diagnostic Testing: Clinical Impression(s) from Imaging Studies Lower Extremity CT 06/19/23 06:51 IMPRESSION: Large left lateral thigh hematoma along the lateral femoral margin from the intratrochanteric femur to the distal metaphysis. Active bleeding is noted from small vessel at the superior margin of the hematoma adjacent to the lateral femur at the level of the lesser trochanter. Small left lateral hip subcutaneous soft tissue fluid collection is unchanged compatible small seroma. Additional likely seroma posterior to the left hip deep to the gluteal muscles.. Electronically Signed: Barry Sanderson MD at 7:55 EDT , ADDENDUM: 06/19/23 0808 IMPRESSION: Large left lateral thigh hematoma along the lateral femoral margin from the intratrochanteric femur to the distal metaphysis. Active bleeding is noted from small vessel at the superior margin of the hematoma adjacent to the lateral femur at the level of the lesser trochanter. Small left lateral hip subcutaneous soft tissue fluid collection is unchanged compatible small seroma. Additional likely seroma posterior to the left hip deep to the gluteal muscles.. N.B. : The above Results were Read Back by Barry Sanderson MD to Pop Puga DO, and understanding confirmed on 06/19/2023 08:01:54 (ET). Electronically Signed: Barry Sanderson MD at 7:55 EDT , Discharge Plan Triage Chief Complaint: Lower Extremity Injury ED Provider: Pop Puga Dx/Rx/DC Orders Clinical Impression: Periprosthetic fracture around internal prosthetic left hip joint, Hematoma, History of mitral valve replacement with mechanical valve, Essential hypertension, Type 2 diabetes mellitus, Current use of [facility] anticoagulation Instructions: ED Hematoma Prescriptions: New oxycodone-acetaminophen [Percocet] 5-325 mg tablet 1 tab PO Q6H PRN (Reason: pain) 7 Days Qty: 28 0RF methocarbamol 500 mg tablet 500 mg PO 4X/DAY PRN PRN (Reason: Muscle pain/spasm) Qty: 40 0RF No Action atorvastatin 40 mg tablet 40 mg PO DAILY colestipol [Colestid] 1 gram tablet 1 g PO DAILY gemfibrozil [Lopid] 600 MG tablet 600 mg PO BIDAC diphenhydramine HCl [Benadryl] 25 mg Capsule 50 mg PO QHS cholecalciferol (vitamin D3) [Vitamin D3] 50 mcg (2,000 unit) Capsule 50 mcg PO DAILY omeprazole 40 mg capsule,delayed release(DR/EC) 40 mg PO BID metformin 500 mg tablet extended release 24 hr 1,000 mg PO BID Hold Instructions: Resume on 06/14/23. insulin lispro [Humalog KwikPen Insulin] 100 unit/mL Insulin Pen See Protocol subcut TIDAC Qty: 0 0RF Protocol: 4. Sliding Scale Insulin High-Med Dosing Condition: 150-199 mg/dl = 2 units Condition: 200-259 mg/dl = 4 units Condition: 260-324 mg/dl = 6 units Condition: 325-374 mg/dl = 8 units Condition: 375-409 mg/dl = 10 units Condition: 410-449 mg/dl = 11 units Condition: Greater than 449 call physician Protocol Text: - Use for Total Daily Dose of Insulin 56-80 units - Patient who are insulin resistant or septic HIGH MEDIUM DOSING ALGORITHM polyethylene glycol 3350 17 gram Powder In Packet 17 g PO DAILY Qty: 0 0RF lidocaine 5 % Adhesive Patch,Medicated 1 patch topical DAILY Qty: 0 0RF Protocol: *Topical Application Instructions APPLICATION INSTRUCTIONS: right hip Remove Patch 1 patch topical DAILY@2200 Qty: 0 0RF warfarin 5 mg tablet 5 mg PO DAILY Qty: 30 0RF Protocol: Dose Management Condition: Wednesday Dose/Route: 5 mg Instruction: 1 x 5 mg tablet Condition: Wednesday Dose/Route: 7.5 mg Instruction: 1.5 x 5 mg tablets Condition: Wednesday Dose/Route: 7.5 mg Instruction: 1.5 x 5 mg tablets Condition: Wednesday Dose/Route: 5 mg Instruction: 1 x 5 mg tablet Condition: Dose/Route: 5 mg Instruction: 1 x 5 mg tablet Condition: Wednesday Dose/Route: 5 mg Instruction: 1 x 5 mg tablet Condition: Wednesday Dose/Route: 5 mg Instruction: 1 x 5 mg tablet Protocol Text: Adjustment Start Date: Wednesday08/13/20 INR Value: 2.90 INR Date: 07/31/20 acetaminophen [Acetaminophen Extra Strength] 500 mg tablet 1,000 mg PO QHS PRN (Reason: pain) acetaminophen 325 mg capsule 325 mg PO Q4H PRN (Reason: pain) Patient Comments: DO NO EXCEED 4GM IN 24H insulin lispro [Humalog U-100 Insulin] 100 unit/mL solution 17 unit subcut QPM Toujeo SoloStar U-300 Insulin 300 unit/mL (1.5 mL) insulin pen 15 unit SUBCUT DAILY Rx Instructions: QAM mirtazapine [Remeron] 15 mg tablet 15 mg PO QHS insulin glargine-yfgn 100 unit/mL (3 mL) Insulin Pen 15 unit subcut DAILY Rx Instructions: EACH AM enoxaparin 60 mg/0.6 mL syringe 50 mg subcut DAILY meclizine 12.5 mg tablet 12.5 mg PO TID PRN (Reason: DIZZINESS ) Primary Care Provider: Gwen David Referrals: Gwen David MD [Primary Care Provider] - Activity Restrictions/Additional Instructions: Your repeat CT scan does show a small bleeding vessel which is causing the increased swelling of your left leg. However the vessel is too small for any type of intervention. Therefore use the Mario wrap for compression ice the area at the hip joint/inguinal region to help with vasoconstriction. Stop the Lovenox but continue your Coumadin. Have repeat H&H values obtained every few days to make sure you do not need a blood transfusion. If you have any further concerns or worsening of symptoms please return to the ER for repeat evaluation Disposition Disposition: Home, Self Care
[2023-06-19 06:35] LABS: Absolute Lymphocyte Count 0.81 X10^3/uL (0.83-4.51); Absolute Neutrophil Count 6.2 X10^3/uL (2.0-7.7); Basophil# 0.09 X10^3/uL; Basophil% 1.1 % (0-1); Eosinophil# 0.03 X10^3/uL; Eosinophils% 0.4 % (0-5); Hematocrit 39.8 % (37-47); Hemoglobin 12.4 g/dL (12.0-15.0); Lymphocyte # 0.81 X10^3/ul (0.83-4.51); Lymphocyte % 10.3 % (19-41); Mean Corp Hgb Conc 31.2 g/dL (32-36); Mean Corpuscular Volume 96.4 fL (81-99); Monocyte# 0.67 X10^3/uL; Monocyte% 8.5 % (0-10); NRBC Flagged by Analyzer 0 % (0-5); Neutrophil # 6.16 X10^3/uL (2.7-7.7); Neutrophil % 78.3 % (47-70); Platelet Count 320 K/mm3 (150-450); RBC Distribution Width SD 53.1 fl (35.1-43.9); Red Blood Count 4.13 M/mm3 (4.2-5.4); White Blood Count 7.9 K/mm3 (4.4-11.0)
[2023-06-19] MEDS: Morphine 4 MG/ML Syringe IV ×2 (06:40→08:30)
[2023-06-19] MEDS: Orphenadrine 60 MG/2 ML Ampul IV (06:40)
[2023-06-19] MEDS: Ondansetron 4 MG/2 ML Vial IV (06:40)
--- NOTE | 2023-06-19 06:51 | CT_ITS ---
We are attempting to reach an attending provider to discuss findings. An addendum with communication details will be sent when the communication is complete. INDICATION: Expanding hematoma EXAMINATION: CT BONE - CT Femur W/ Contrast Injection TECHNIQUE: Helically acquired images were obtained of the left thigh. 2-D reformats were performed by the technologist. A radiation dose optimization technique was used for this scan. IV Contrast dosage and agent: None. COMPARISON: October 25, 2022, June 10, 2023. FINDINGS: SOFT TISSUES: Superficial left lateral thigh 3.1 x 2.9 x 4.9 cm with thin gonzalez unchanged from June 09, 2023. Large multiloculated fluid collection surrounding the feeding 11-6 o''clock positions with layering hematocrit level extends from just inferior to the intratrochanteric region to the distal femoral metaphyseal level, approximately 9.4 x 6.3 x 26.1 cm in size.. There is focal extravasation of IV contrast at the posterior superior lateral margin of the hematoma at the level of the lesser trochanter. Additional low density fluid collection posterior to the left hip 5.7 x 1.1 cm in axial plane, axial image 55, suggestive of seroma deep to the gluteus muscle. No radiopaque foreign body. No subcutaneous emphysema. BONES/JOINTS: No acute fracture or subluxation. Normal alignment. Preservation of the joint space. No sclerotic or destructive changes. Right anterior pelvic wall surgical changes. Osseous remodeling of the left superior and inferior pubic ramus from prior injury. Left hip arthroplasty. CT/Extremity Lower WITH Contrast IMPRESSION: Large left lateral thigh hematoma along the lateral femoral margin from the intratrochanteric femur to the distal metaphysis. Active bleeding is noted from small vessel at the superior margin of the hematoma adjacent to the lateral femur at the level of the lesser trochanter. Small left lateral hip subcutaneous soft tissue fluid collection is unchanged compatible small seroma. Additional likely seroma posterior to the left hip deep to the gluteal muscles.. Electronically Signed: Barry Sanderson MD at 7:55 EDT ,
[2023-06-19 06:55] LABS: Partial Thromboplast Time 35.5 Seconds (24.1-36.2); Prothrombin Time (Protime)PT. 22.9 SECONDS (11.7-14.9)
[2023-06-19 07:08] LABS: Anion Gap 10 (5-15); BUN 20 mg/dL (7-18); BUN/Creat Ratio 33.4 RATIO (10-20); Calcium,Total 9.2 mg/dL (8.5-10.1); Chloride 106 mmol/L (98-107); EST Glomerular Filtration Rate 104 mL/min (>60); Est Glom Filt Rate - Afr Amer 126 mL/min (>60); Estimated Creatinine Clearance 34.91 ml/min; Glucose 185 mg/dL (74-106); Sodium Level 139 mmol/L (136-145)
--- NOTE | 2023-06-19 08:17 | NURSING ---
CALLED [facility], ETA IS 20 MIN
[2023-06-19 08:19] VITALS: BP 103/67; RESP 18; O2SAT 97
[2023-06-19 08:53] VITALS: BP 108/68; PULSE 80; RESP 16; O2SAT 97
== END 2023-06-19 08:55 | disposition home or self-care (01) ==
PROVIDERS: Emergency Provider Emergency Medicine; PCP Internal Medicine; Visit Provider Emergency Medicine
DX: M97.02XA Periprosthetic fracture around internal prosthetic left hip joint, initial encounter (principal); I48.0 Paroxysmal atrial fibrillation; E11.9 Type 2 diabetes mellitus without complications; Z79.4 Long term (current) use of insulin; I25.10 Atherosclerotic heart disease of native coronary artery without angina pectoris; E78.00 Pure hypercholesterolemia, unspecified; I10 Essential (primary) hypertension; Z79.84 Long term (current) use of oral hypoglycemic drugs; Z79.899 Other long term (current) drug therapy; Z79.01 Long term (current) use of anticoagulants; Z87.891 Personal history of nicotine dependence
CPT/HCPCS: 73701; 80048; 85025; 85610; 85730; 96374; 96375; 96376; 99285; Q9967; A4216; J2405

== ENCOUNTER 2023-06-30 18:00 | Inpatient (IN) | payer MEDICARE, SELFPAY ==
[2020-12-04 07:04] VITALS: BMI 27.6
[2023-06-30 18:01] VITALS: BP 89/56; PULSE 103; RESP 20; TEMP 36.6; O2SAT 116; BMI 23.1
--- NOTE | 2023-06-30 19:51 | EKG12_ITS ---
Test Reason : CP Blood Pressure : / mmHG Vent. Rate : 124 BPM Atrial Rate : 000 BPM P-R Int : 000 ms QRS Dur : 118 ms QT Int : 316 ms P-R-T Axes : 000 162 013 degrees QTc Int : 453 ms Atrial fibrillation with rapid ventricular response Low voltage QRS Septal infarct , age undetermined Possible Lateral infarct , age undetermined ST & T wave abnormality, consider inferior ischemia Abnormal ECG Confirmed by APRYL RAMOS, EDWIN ([id number]), social media editor VALERIA SNYDER ([id number]) on 07/07/2023 11:51:10 AM Referred By: JAMES/JEFF Confirmed By:EDWIN PINK MD
[2023-06-30 20:07] LABS: Hemoglobin 7.4 g/dL (12.0-15.0); Mean Corp Hgb Conc 29.6 g/dL (32-36); Mean Corpuscular Hgb 28.6 pg (27.0-32.0); Mean Corpuscular Volume 96.5 fL (81-99); Mean Platelet Vol. 10.3 fl (6.2-12.0); POSITIVE COUNT YES; POSITIVE MORPHOLOGY YES; Platelet Count 695 K/mm3 (150-450); RBC Distribution Width CV 17.2 % (11.6-14.6); RBC Distribution Width SD 56.6 fl (35.1-43.9); Red Blood Count 2.59 M/mm3 (4.2-5.4); White Blood Count 15.1 K/mm3 (4.4-11.0)
[2023-06-30] MEDS: 0.9% Normal Saline (500mL Bag) 500 ML 1000 ML IV (20:08)
[2023-06-30 20:09] VITALS: BP 94/66; PULSE 113; RESP 22; O2SAT 95
[2023-06-30 20:09] LABS: Differential Indicated MANUAL DIFF
[2023-06-30 20:17] LABS: International Normalized Ratio 2.9; Prothrombin Time (Protime)PT. 30.7 SECONDS (11.7-14.9)
[2023-06-30 20:23] LABS: Lymphocyte 11 % (19-41); Metamyelocyte 2 % (0-1); Monocyte 4 % (0-10); Myelocyte 1 % (0-0); Neutrophil-Band 6 % (0-5); Neutrophil-Segmented 75 % (47-70); Promyelocyte 1 % (0-0); Total Cells Counted 100 (MANUAL DIFF)
[2023-06-30 20:24] VITALS: BP 91/57; PULSE 116; RESP 20; O2SAT 95
[2023-06-30 20:25] LABS: Absolute Lymphocyte Count 1.66 X10^3/uL (0.83-4.51); Absolute Neutrophil Count 12.2 X10^3/uL (2.0-7.7)
[2023-06-30 20:39] LABS: Anion Gap 12 (5-15); BUN 79 mg/dL (7-18); BUN/Creat Ratio 43.2 RATIO (10-20); CPK Total, Creatine Kinase 282 U/L (26-192); Calcium,Total 8.5 mg/dL (8.5-10.1); Chloride 94 mmol/L (98-107); Creatinine, Serum 1.83 mg/dL (0.55-1.02); EST Glomerular Filtration Rate 29 mL/min (>60); Est Glom Filt Rate - Afr Amer 35 mL/min (>60); Estimated Creatinine Clearance 21.01 ml/min; Glucose 45 mg/dL (74-106); Sodium Level 128 mmol/L (136-145)
[2023-06-30] MEDS: 0.9% Normal Saline (1000mL) 1,000 ML 999 ML IV (21:18)
--- NOTE | 2023-06-30 21:56 | CT_ITS ---
INDICATION: renal failure, concern for obstruction EXAMINATION: CT Abdomen And Pelvis W/O Contrast Injection TECHNIQUE: Helically acquired images were obtained of the abdomen and pelvis with sagittal and coronal reconstructed images. Individualized dose optimization techniques were used for this CT. IV contrast dosage and agent: None. Oral contrast: None. COMPARISON: 06/09/2023 CT. FINDINGS: VESSELS: No abdominal aortic aneurysm. LIVER: No intrahepatic or extrahepatic biliary duct dilation. GALLBLADDER: Multiple small calcified stones. Gallbladder wall thickening. PANCREAS: No focal solid or cystic mass. No evidence of pancreatitis. SPLEEN: Normal. ADRENAL GLANDS: Normal. KIDNEYS AND URETERS: Simple right renal cyst with no follow-up recommended. No urinary tract stone. No hydronephrosis or hydroureter. Bilateral perinephric stranding, new as compared to the prior CT. URINARY BLADDER: Air within the antidependent portion of the bladder likely secondary to recent instrumentation. BOWEL: No evidence of diverticulosis or diverticulitis. Appendix not identified. No evidence of bowel obstruction. REPRODUCTIVE ORGANS: Probable uterine fibroid. PERITONEUM: No intraabdominal free fluid or free air. Diffuse mesenteric stranding. LYMPH NODES: No pathologically enlarged mesenteric or retroperitoneal lymph nodes. ABDOMINAL WALL: Small fat-containing right inguinal hernia. Diffuse stranding of the subcutaneous soft tissues. BONES: Partial visualization of a large left hip effusion versus hematoma. Circumscribed ovoid collection in the subcutaneous soft tissues lateral to the left hip currently measuring 3.3 x 2.1 cm, previously measuring 3.4 x 2.9 cm. Again seen is a periprosthetic fracture of the proximal left femur. Stable T12 compression fracture. LOWER CHEST: Small right pleural effusion. Cardiomegaly. Small hiatal hernia. CT/Abdomen/Pelvis without Cont IMPRESSION: 1. Bilateral perinephric stranding, new as compared to the prior CT. This may represent medical renal disease. No urinary tract stone and no hydronephrosis or hydroureter. 2. Cholelithiasis and gallbladder wall thickening. The gallbladder wall thickening may be secondary to edema from anasarca, however if there is a clinical concern for cholecystitis, recommend follow-up with right upper quadrant ultrasound. 3. Partial visualization of a large left hip effusion versus hematoma. Circumscribed fluid collection in the subcutaneous soft tissues lateral to the left hip slightly decreased in size as compared to the prior CT. Consider follow-up with MRI. 4. Small right pleural effusion. 5. Stable T12 compression fracture. Electronically Signed: Aman Bai DO at 23:03 EST ,
--- NOTE | 2023-06-30 22:50 | ED.VIS.CHEST ---
HPI History of Present Illness Chief Complaint: Chest Pain Informant: patient Narrative Narrative: Patient is a 73 year old female with history of mitral valve replaced with mechanical valve, chronic Coumadin therapy, recent fall with pelvic fracture and represent acute fracture of the left proximal femur. This was treated nonoperatively with touchdown weightbearing. Follows with [facility]. She also was found to have intramuscular hematoma in the area. She also has longstanding history of proximal atrial fibrillation, diabetes mellitus, hypertension hyperlipidemia. She is presenting from [facility] for pain. Patient states that she currently has no pain but if she moves she has pretty severe left hip pain. In addition she has chronic chest pain since her mitral valve surgery 22 years ago. Denies any changes pain at this time as a second she tries to move it is a 10 out of 10. Denies any urinary symptoms. Denies any recent falls since her most recent hospital visit. When asked what I can do for her she states let me go home but to be in a shelter for the rest of my life. Had recent outpatient labs which showed an improving supratherapeutic INR and stable/improving anemia. She also has a chronic cough for the patient. She had a chest x-ray 2 days ago which showed no acute process. [facility] Medical History Abnormal electrocardiogram Abrasion Alcohol use Anemia Angina at rest Arthritis Atherosclerotic heart disease of [place] coronary artery without angina pectoris Atrial fibrillation Back pain Bacteremia Blood infection Cardiology follow-up encounter Depression Dietary restriction Dyslipidemia Encounter for long-term current use of high risk medication Essential hypertension Former smoker Gastric reflux High cholesterol History of atrial fibrillation History of echocardiogram History of hiatal hernia History of irregular heartbeat History of pain when walking History of renal disease History of stress test Hx of fracture of arm Hx of uterine prolapse Hypertension Insulin dependent diabetes mellitus Leg cramps Loss of hearing Mitral valve disorder Murmur, functional Nonrheumatic aortic (valve) stenosis Palpitations Paroxysmal atrial fibrillation Paroxysmal ventricular tachycardia Post-menopausal Premature atrial contraction Premature ventricular contraction Restless legs Shortness of breath on exertion SIRS (systemic inflammatory response syndrome) Type 2 diabetes mellitus Ventricular tachycardia Vertigo Wears glasses Wears partial dentures Home Medications gemfibrozil 600 mg tablet (Lopid) 600 mg PO BIDAC CHOLESTEROL 07/10/13 [History Last Taken 06/09/23] atorvastatin 40 mg tablet 40 mg PO DAILY CHOLESTEROL 12/21/17 [History Last Taken 06/09/23] meclizine 12.5 mg tablet 12.5 mg PO TID PRN DIZZINESS 09/30/20 [History Last Taken 10/20/22] cholecalciferol (vitamin D3) 50 mcg (2,000 unit) capsule (Vitamin D3) 50 mcg PO DAILY SUPPLEMENT 10/14/22 [History Last Taken 06/08/23] diphenhydramine HCl 25 mg capsule (Benadryl) 50 mg PO QHS SLEEP 10/14/22 [History Last Taken 06/08/23] colestipol 1 gram tablet (Colestid) 1 g PO DAILY CHOLESTEROL 03/24/23 [History Last Taken 06/09/23] metformin 500 mg tablet,extended release 24 hr 1,000 mg PO BID BLOOD SUGARS 06/09/23 [History Last Taken 06/09/23] omeprazole 40 mg capsule,delayed release 40 mg PO BID ACID REFLUX 06/09/23 [History Last Taken 06/09/23] Remove Patch 1 patch topical DAILY@2200 ##0 06/12/23 [Rx Last Taken Unknown] insulin lispro 100 unit/mL subcutaneous pen (Humalog KwikPen (U-100) Insulin) See Protocol subcut TIDAC #0 mL 06/12/23 [Rx Last Taken Unknown] lidocaine 5 % topical patch 1 patch topical DAILY #0 ea 06/12/23 [Rx Last Taken Unknown] polyethylene glycol 3350 17 gram oral powder packet 17 g PO DAILY #0 ea 06/12/23 [Rx Last Taken Unknown] acetaminophen 325 mg capsule 325 mg PO Q4H PRN pain 06/19/23 [History Last Taken Unknown] acetaminophen 500 mg tablet (Acetaminophen Extra Strength) 1,000 mg PO QHS PRN pain 06/19/23 [History Last Taken Unknown] enoxaparin 60 mg/0.6 mL subcutaneous syringe 50 mg subcut DAILY 06/19/23 [History Last Taken Unknown] insulin glargine U-300 conc 300 unit/mL (1.5 mL) subcutaneous pen (Toujeo SoloStar U-300 Insulin) 15 unit subcut DAILY 06/19/23 [History Last Taken Unknown] insulin glargine-yfgn 100 unit/mL (3 mL) subcutaneous pen 15 unit subcut DAILY 06/19/23 [History Last Taken Unknown] insulin lispro 100 unit/mL subcutaneous solution (Humalog U-100 Insulin) 17 unit subcut QPM 06/19/23 [History Last Taken Unknown] methocarbamol 500 mg tablet 500 mg PO 4X/DAY PRN PRN Muscle pain/spasm #40 tabs 06/19/23 [Rx Last Taken Unknown] mirtazapine 15 mg tablet (Remeron) 15 mg PO QHS 06/19/23 [History Last Taken Unknown] oxycodone-acetaminophen 5 mg-325 mg tablet (Percocet) 1 tab PO Q6H PRN pain 7 days #28 tabs 06/19/23 [Rx Last Taken Unknown] insulin glargine 100 unit/mL (3 mL) subcutaneous pen (Lantus Solostar U-100 Insulin) 15 unit subcut BREAKFAST 06/30/23 [History Last Taken Unknown] insulin glargine 100 unit/mL (3 mL) subcutaneous pen (Lantus Solostar U-100 Insulin) 17 unit subcut QPM 06/30/23 [History Last Taken Unknown] warfarin 4 mg tablet 4 mg PO MOWEFR 06/30/23 [History Last Taken Unknown] warfarin 5 mg tablet 5 mg PO .TUTHSASU BLOOD THINNER 06/30/23 [History Last Taken Unknown] Allergy/AdvReac Type Severity Reaction Status Date / Time Calcium Channel Blocking Allergy Rash Verified 06/30/23 18:05 Agent Dilt [Calcium Channel Blocking Agents-Win] Family History Mother CAD (coronary artery disease) Brother hyperlipidemia Brother Hypertension Father CAD (coronary artery disease) Surgical History Bioprosthetic mitral valve replacement, current hospitalization History of cardiac catheterization History of left heart catheterization (LHC) (~07/19/20) History of mitral valve replacement with mechanical valve (~09/29/01) History of total left hip replacement Hx of colonoscopy Hx of dilation and curettage Hx of inguinal hernia repair Hx of lithotripsy 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) Social History Smoking Status: Former smoker alcohol intake: never substance use type: does not use caffeine: Yes Type: coffee Number of servings: 1 what type of physical activity do you participate in: walking frequency: daily duration: 15-30 minutes/day seatbelt use: always do you feel safe at home: Yes ROS ROS ED Constitutional Constitutional ED: Denies chills or fever(s) Cardiovascular Cardiovascular: Reports as per HPI and chest pain Respiratory/Chest Respiratory/Chest: Reports cough Gastrointestinal Gastrointestinal: Denies abdominal pain, nausea or vomiting Genitourinary Genitourinary ED: Denies dysuria Musculoskeletal Musculoskeletal: Reports other Details: left hip pain Integumentary Denies rash Neurologic Neurologic: Denies weakness Hematologic/Lymphatic Hematologic/Lymphatic: Reports easy bleeding and easy bruising EXAM Physical Exam Const Vital Signs: 06/30/23 18:01 06/30/23 20:09 06/30/23 20:24 Temperature 97.9 F Temperature Source Temporal Pulse Rate 103 H 113 H 116 H Respiratory Rate 20 H 22 H 20 H Blood Pressure 89/56 L 94/66 91/57 L Blood Pressure Mean 67 75 68 Pulse Ox 116 95 95 Oxygen Delivery Method Room Air Room Air Room Air 06/30/23 23:21 06/30/23 23:22 06/30/23 23:22 Temperature 97.8 F Temperature Source Temporal Pulse Rate 108 H 103 H 103 H Respiratory Rate 14 16 16 Blood Pressure 97/73 97/73 97/73 Blood Pressure Mean 81 81 81 Pulse Ox 97 97 97 Oxygen Delivery Method Room Air Room Air 07/01/23 01:00 Temperature Temperature Source Pulse Rate 23 L Respiratory Rate 25 H Blood Pressure 96/58 L Blood Pressure Mean 70 Pulse Ox 99 Oxygen Delivery Method Room Air Positive well nourished and well developed General Appearance ED: well developed, NAD and pallor HEENT Reports dry mucous membranes Mouth ED: Yes dry mucous membranes Mouth: dry mucous membranes Eyes PERRL Neck supple and no JVD Chest Wall inspection of chest normal and palpation of chest normal Resp normal respiratory effort and clear to auscultation bilaterally Cardio Rate: tachycardic Rhythm: abnormal rhythm irregularly irregular Peripheral Pulses: pulses 2+ throughout GI normal to inspection, nondistended, normoactive bowel sounds, soft to palpation and non-tender Extremity Extremity Narrative: Deformity with rotation and shortening of the left lower extremity General Extremety ED: Negative for edema General Extremity: Negative for edema Neuro oriented x3 Sensorium / Orientation: awake and alert Motor Exam: general weakness Psych mental status grossly normal Mood & Affect: anxious Skin no rashes or lesions noted General Skin Exam: pallor Sepsis Attestation Sepsis Alert: Yes Sepsis Attestation: Agree w/Sepsis Date exam was performed: 07/01/23 Time exam was performed: 01:15 Possible Source of Sepsis: GI tract/intra-abdominal Sepsis Organ Dysfunction Criteria Present: Creatinine > 2.0 mg/dL and Lactic Acid > 2 mmol/L Fluid Resuscitation Fluid resuscitation indicated?: Yes Fluid Resuscitation ordered: 30 ml/kg fluid bolus ordered Amount of fluid ordered: 2,000 Sepsis Note Date exam was performed: 07/01/23 Time exam was performed: :16 Sepsis Attestation: Sepsis re-evaluation was performed Response to fluids: Fluid responsive hypotension MDM MDM MDM Narrative Medical decision making narrative: Is evaluated for what sounds initially like pain control. She is noted to be mildly tachycardic and in A-fib with RVR on her EKG. Initially she is ordered 5 of IV metoprolol however she is noted to have soft/low blood pressures and this is held. She is given a 500 cc bolus and then another liter bolus for pressure support. Work-up is obtained. Differential includes infection, dehydration, cardiogenic cause, symptomatic anemia, acute urinary retention or renal colic. Work-up is remarkable for leukocytosis of 15.1 and a stable hemoglobin of 7.4. Her INR is therapeutic now at 2.9. She has hyponatremia the sodium of 128, acute kidney injury with a creatinine of 1.83 and hyperkalemia with a slightly hemolyzed specimen with a potassium of 6.0. Her lactate is elevated at 3.0. Her CK is downtrending at 282. I suspect her main issue is dehydration but will also obtain CT abdomen pelvis to rule out hydronephrosis/obstructive uropathy as the cause of her MURRAY/leukocytosis. Blood cell count was 16.6 yesterday however 2 days before that it was normal at 10.6. Patient does not have EKG changes consistent with hyperkalemia and so I do not think she requires hyper-K cocktail. Will treat with IV fluids and recheck potassium. As patient had a chest x-ray 2 days ago and has no increased O2 demand I do not think she requires repeat chest x-ray at this time. She not have any respiratory symptoms acutely. Repeat BMP shows improving hyponatremia, hyperkalemia and MURRAY however glucose is now 43. Nursing staff obtain a fingerstick glucose which is 31. Patient is given amp of D50. Upon further discussion she states she is on Lantus and her blood sugars been low the last few days. Hospitalist is informed of this. Repeat lactate is pending however patient is given a 30 cc/kg fluid bolus. Lab Data Attestation: I reviewed the patient's lab results. Labs: Laboratory Results - last 24 hr 06/30/23 06/30/23 06/30/23 20:05 23:25 23:35 WBC 15.1 H RBC 2.59 L Hgb 7.4 L Hct 25.0 L MCV 96.5 MCH 28.6 MCHC 29.6 L RDW Std Deviation 56.6 H RDW Coeff of Tk 17.2 H Plt Count 695 H MPV 10.3 Neut % (Auto) Not Reportable Absolute Neuts (auto) 12.2 H Absolute Lymphs (auto) 1.66 Total Counted 100 Neutrophils % (Manual) 75 H Band Neutrophils % 6 H Lymphocytes % (Manual) 11 L Monocytes % (Manual) 4 Metamyelocytes % 2 H Myelocytes % 1 H Promyelocytes % 1 H Diff Path Review December foll PT 30.7 H INR 2.9 Sodium 128 L 130 L Potassium 6.0 H* 5.6 H Chloride 94 L 98 Carbon Dioxide 22.0 21.0 Anion Gap 12 11 BUN 79 H 80 H Creatinine 1.83 H 1.67 H Estim Creat Clear Calc 21.01 23.02 Est GFR (MDRD) Af Amer 35 L 38 L Est GFR (MDRD) Non-Af 29 L 32 L BUN/Creatinine Ratio 43.2 H 47.9 H Glucose 45 L 43 L* Lactic Acid 3.0 H* Calcium 8.5 8.0 L Total Creatine Kinase 282 H Urine Color Yellow Urine Clarity Clear Urine pH 5.0 Ur Specific [place] 1.020 Urine Protein 100 H Urine Glucose (UA) Normal Urine Ketones 5 H Urine Occult Blood 10 H Urine Nitrite Negative Urine Bilirubin 3 H Urine Urobilinogen 4 H Ur Leukocyte Esterase 500 H Urine RBC 0-5 SEEN Urine WBC 25-50 SEEN Ur Squamous Epith Cells 0-5 SEEN Amorphous Sediment 2+ Urine Bacteria 4+ Urine Mucus 0 SEEN Radiography Diagnostic Testing: Clinical Impression(s) from Imaging Studies Abdomen/Pelvis CT 06/30/23 21:56 IMPRESSION: 1. Bilateral perinephric stranding, new as compared to the prior CT. This may represent medical renal disease. No urinary tract stone and no hydronephrosis or hydroureter. 2. Cholelithiasis and gallbladder wall thickening. The gallbladder wall thickening may be secondary to edema from anasarca, however if there is a clinical concern for cholecystitis, recommend follow-up with right upper quadrant ultrasound. 3. Partial visualization of a large left hip effusion versus hematoma. Circumscribed fluid collection in the subcutaneous soft tissues lateral to the left hip slightly decreased in size as compared to the prior CT. Consider follow-up with MRI. 4. Small right pleural effusion. 5. Stable T12 compression fracture. Electronically Signed: Aman Bai DO at 23:03 EST Reading Location ID and State: [facility] / [place] Tel , Service support , Rhythm Strip Rhythm Strip: A-fib Rate: 124 Ectopy: None EKG Initial EKG: Attestation: I personally reviewed and interpreted this EKG as follows: Interpretation: Atrial Fibrillation Comments: Atrial fibrillation with rapid ventricular response at a rate of 124 bpm Low voltage QRS Left axis deviation with left bundle branch block Normal ST segments Compared to prior EKG patient is now in a tacky arrhythmia with morphology changes to the inferior leads Management Discussion w/another healthcare provider: Hospitalist Critical Care Time Critical Care Time: Yes Critical care time (excluding procedures): 30-74 minutes (40), Discussing w/Patient &/or Family/Nutritional Services Host, Arranging Admission or Transfer and Performing Direct Patient Care at Bedside Discharge Plan Triage Chief Complaint: Chest Pain ED Provider: Yue Moreno Dx/Rx/DC Orders Clinical Impression: MURRAY (acute kidney injury), SIRS (systemic inflammatory response syndrome), History of mitral valve replacement with mechanical valve, emt intermediate current use of anticoagulant, Acute hyperkalemia, Atrial fibrillation, Hypoglycemia Prescriptions: No Action atorvastatin 40 mg tablet 40 mg PO DAILY colestipol [Colestid] 1 gram tablet 1 g PO DAILY gemfibrozil [Lopid] 600 MG tablet 600 mg PO BIDAC diphenhydramine HCl [Benadryl] 25 mg Capsule 50 mg PO QHS cholecalciferol (vitamin D3) [Vitamin D3] 50 mcg (2,000 unit) Capsule 50 mcg PO DAILY omeprazole 40 mg capsule,delayed release(DR/EC) 40 mg PO BID metformin 500 mg tablet extended release 24 hr 1,000 mg PO BID Hold Instructions: Resume on 06/14/23. insulin lispro [Humalog KwikPen Insulin] 100 unit/mL Insulin Pen See Protocol subcut TIDAC Qty: 0 0RF Protocol: 4. Sliding Scale Insulin High-Med Dosing Condition: 150-199 mg/dl = 2 units Condition: 200-259 mg/dl = 4 units Condition: 260-324 mg/dl = 6 units Condition: 325-374 mg/dl = 8 units Condition: 375-409 mg/dl = 10 units Condition: 410-449 mg/dl = 11 units Condition: Greater than 449 call physician Protocol Text: - Use for Total Daily Dose of Insulin 56-80 units - Patient who are insulin resistant or septic HIGH MEDIUM DOSING ALGORITHM polyethylene glycol 3350 17 gram Powder In Packet 17 g PO DAILY Qty: 0 0RF lidocaine 5 % Adhesive Patch,Medicated 1 patch topical DAILY Qty: 0 0RF Protocol: *Topical Application Instructions APPLICATION INSTRUCTIONS: right hip Remove Patch 1 patch topical DAILY@2200 Qty: 0 0RF acetaminophen [Acetaminophen Extra Strength] 500 mg tablet 1,000 mg PO QHS PRN (Reason: pain) acetaminophen 325 mg capsule 325 mg PO Q4H PRN (Reason: pain) Patient Comments: DO NO EXCEED 4GM IN 24H insulin lispro [Humalog U-100 Insulin] 100 unit/mL solution 17 unit subcut QPM Hold Instructions: Duplicate Order Niki SoloStar U-300 Insulin 300 unit/mL (1.5 mL) insulin pen 15 unit SUBCUT DAILY Hold Instructions: Ordered/Entered in error Rx Instructions: QAM mirtazapine [Remeron] 15 mg tablet 15 mg PO QHS insulin glargine-yfgn 100 unit/mL (3 mL) Insulin Pen 15 unit subcut DAILY Hold Instructions: Order Changed Rx Instructions: EACH AM enoxaparin 60 mg/0.6 mL syringe 50 mg subcut DAILY oxycodone-acetaminophen [Percocet] 5-325 mg tablet 1 tab PO Q6H PRN (Reason: pain) 7 Days Qty: 28 0RF methocarbamol 500 mg tablet 500 mg PO 4X/DAY PRN PRN (Reason: Muscle pain/spasm) Qty: 40 0RF warfarin 4 mg tablet 4 mg PO MOWEFR insulin glargine [Lantus Solostar U-100 Insulin] 100 unit/mL (3 mL) insulin pen 17 unit subcut QPM insulin glargine [Lantus Solostar U-100 Insulin] 100 unit/mL (3 mL) insulin pen 15 unit subcut BREAKFAST warfarin 5 mg tablet 5 mg PO .TUTHSASU Protocol: Dose Management Condition: Wednesday Dose/Route: 5 mg Instruction: 1 x 5 mg tablet Condition: Wednesday Dose/Route: 7.5 mg Instruction: 1.5 x 5 mg tablets Condition: Wednesday Dose/Route: 7.5 mg Instruction: 1.5 x 5 mg tablets Condition: Wednesday Dose/Route: 5 mg Instruction: 1 x 5 mg tablet Condition: Dose/Route: 5 mg Instruction: 1 x 5 mg tablet Condition: Wednesday Dose/Route: 5 mg Instruction: 1 x 5 mg tablet Condition: Wednesday Dose/Route: 5 mg Instruction: 1 x 5 mg tablet Protocol Text: Adjustment Start Date: Wednesday08/13/20 INR Value: 2.90 INR Date: 07/31/20 meclizine 12.5 mg tablet 12.5 mg PO TID PRN (Reason: DIZZINESS ) Primary Care Provider: Gwen David Referrals: Gwen David MD [Primary Care Provider] - Disposition Disposition: Acute Care Hospital [email or web address]
--- NOTE | 2023-06-30 23:20 | PCM.HP.STD ---
HPI - General General Date of Admission: 07/01/23 Date of Service: 06/30/23 Chief Complaint: Multiple complaints HPI Narrative MACIEL BUCIO, is a 73 F who presented to department at [facility] on 06/30/2023 with multiple complaints however it was hard to pin her down on anyone. She has a history of chronic chest pain but she reports that it was a little bit worse in the last few days. She complains of worsening hip pain on the left side compared to when she presented after her acute fracture. She states she has been eating and drinking well especially in the last 2 weeks she is been trying to eat everything and drink everything on her tray when it comes to her. She is motivated to get back home. She is overall an extremely poor historian and is unable to give me a lot of information on how she is feeling or what has been going on. Vital signs on presentation show a temperature of 97.9, heart rate 103, blood pressure is 89/56, respiratory rate has been anywhere from 14-25 and oxygen saturations are 95 to 99% on room air. Her CBC shows a leukocytosis with a white count of 15.1, and hemoglobin of 7.4 which is trending down, platelet count of 695,000, she has a left shift with 75% neutrophilia and 6% bands. Her INR is 2.9 and she is on Coumadin for mechanical mitral valve with a goal INR of 2.5-3.5. Her chemistry panel reveals new hyponatremia with a sodium of 130, potassium of 6.0 at a repeat of 5.6 after IV fluids, BUN of 80 and a serum creatinine of 1.83 which is markedly above her baseline of 0.35-0.65. Her blood glucose was 43. Initial lactate was 3.0. CK was 282. Her urine is suggestive of infection having leuk esterase, white cells, and 4+ bacteria. CT of her abdomen pelvis showed bilateral perinephritic stranding which is new and I suspect is related to her acute UTI, cholelithiasis with gallbladder wall thickening, partial visualization of a large left hip effusion versus hematoma, small right pleural effusion and a stable T12 compression fracture. EKG shows A-fib with RVR but no ischemic changes. [facility] Medical History Abnormal electrocardiogram Abrasion Alcohol use Anemia Angina at rest Arthritis Atherosclerotic heart disease of [place] coronary artery without angina pectoris Atrial fibrillation Back pain Bacteremia Blood infection Cardiology follow-up encounter Depression Dietary restriction Dyslipidemia Encounter for long-term current use of high risk medication Essential hypertension Former smoker Gastric reflux High cholesterol History of atrial fibrillation History of echocardiogram History of hiatal hernia History of irregular heartbeat History of pain when walking History of renal disease History of stress test Hx of fracture of arm Hx of uterine prolapse Hypertension Insulin dependent diabetes mellitus Leg cramps Loss of hearing Mitral valve disorder Murmur, functional Nonrheumatic aortic (valve) stenosis Palpitations Paroxysmal atrial fibrillation Paroxysmal ventricular tachycardia Post-menopausal Premature atrial contraction Premature ventricular contraction Restless legs Shortness of breath on exertion SIRS (systemic inflammatory response syndrome) Type 2 diabetes mellitus Ventricular tachycardia Vertigo Wears glasses Wears partial dentures Home Medications gemfibrozil 600 mg tablet (Lopid) 600 mg PO BIDAC CHOLESTEROL 07/10/13 [History Last Taken 06/09/23] atorvastatin 40 mg tablet 40 mg PO DAILY CHOLESTEROL 12/21/17 [History Last Taken 06/09/23] meclizine 12.5 mg tablet 12.5 mg PO TID PRN DIZZINESS 09/30/20 [History Last Taken 10/20/22] cholecalciferol (vitamin D3) 50 mcg (2,000 unit) capsule (Vitamin D3) 50 mcg PO DAILY SUPPLEMENT 10/14/22 [History Last Taken 06/08/23] diphenhydramine HCl 25 mg capsule (Benadryl) 50 mg PO QHS SLEEP 10/14/22 [History Last Taken 06/08/23] colestipol 1 gram tablet (Colestid) 1 g PO DAILY CHOLESTEROL 03/24/23 [History Last Taken 06/09/23] metformin 500 mg tablet,extended release 24 hr 1,000 mg PO BID BLOOD SUGARS 06/09/23 [History Last Taken 06/09/23] omeprazole 40 mg capsule,delayed release 40 mg PO BID ACID REFLUX 06/09/23 [History Last Taken 06/09/23] Remove Patch 1 patch topical DAILY@2200 ##0 06/12/23 [Rx Last Taken Unknown] insulin lispro 100 unit/mL subcutaneous pen (Humalog KwikPen (U-100) Insulin) See Protocol subcut TIDAC #0 mL 06/12/23 [Rx Last Taken Unknown] lidocaine 5 % topical patch 1 patch topical DAILY #0 ea 06/12/23 [Rx Last Taken Unknown] polyethylene glycol 3350 17 gram oral powder packet 17 g PO DAILY #0 ea 06/12/23 [Rx Last Taken Unknown] acetaminophen 325 mg capsule 325 mg PO Q4H PRN pain 06/19/23 [History Last Taken Unknown] acetaminophen 500 mg tablet (Acetaminophen Extra Strength) 1,000 mg PO QHS PRN pain 06/19/23 [History Last Taken Unknown] enoxaparin 60 mg/0.6 mL subcutaneous syringe 50 mg subcut DAILY 06/19/23 [History Last Taken Unknown] insulin glargine U-300 conc 300 unit/mL (1.5 mL) subcutaneous pen (Toujeo SoloStar U-300 Insulin) 15 unit subcut DAILY 06/19/23 [History Last Taken Unknown] insulin glargine-yfgn 100 unit/mL (3 mL) subcutaneous pen 15 unit subcut DAILY 06/19/23 [History Last Taken Unknown] insulin lispro 100 unit/mL subcutaneous solution (Humalog U-100 Insulin) 17 unit subcut QPM 06/19/23 [History Last Taken Unknown] methocarbamol 500 mg tablet 500 mg PO 4X/DAY PRN PRN Muscle pain/spasm #40 tabs 06/19/23 [Rx Last Taken Unknown] mirtazapine 15 mg tablet (Remeron) 15 mg PO QHS 06/19/23 [History Last Taken Unknown] oxycodone-acetaminophen 5 mg-325 mg tablet (Percocet) 1 tab PO Q6H PRN pain 7 days #28 tabs 06/19/23 [Rx Last Taken Unknown] insulin glargine 100 unit/mL (3 mL) subcutaneous pen (Lantus Solostar U-100 Insulin) 15 unit subcut BREAKFAST 06/30/23 [History Last Taken Unknown] insulin glargine 100 unit/mL (3 mL) subcutaneous pen (Lantus Solostar U-100 Insulin) 17 unit subcut QPM 06/30/23 [History Last Taken Unknown] warfarin 4 mg tablet 4 mg PO MOWEFR 06/30/23 [History Last Taken Unknown] warfarin 5 mg tablet 5 mg PO .TUTHSASU BLOOD THINNER 06/30/23 [History Last Taken Unknown] Allergy/AdvReac Type Severity Reaction Status Date / Time Calcium Channel Blocking Allergy Rash Verified 06/30/23 18:05 Agent Dilt [Calcium Channel Blocking Agents-Win] Family History Mother CAD (coronary artery disease) Brother hyperlipidemia Brother Hypertension Father CAD (coronary artery disease) Surgical History Bioprosthetic mitral valve replacement, current hospitalization History of cardiac catheterization History of left heart catheterization (LHC) (~07/19/20) History of mitral valve replacement with mechanical valve (~09/29/01) History of total left hip replacement Hx of colonoscopy Hx of dilation and curettage Hx of inguinal hernia repair Hx of lithotripsy 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) Social History Smoking Status: Former smoker alcohol intake: never substance use type: does not use caffeine: Yes Type: coffee Number of servings: 1 what type of physical activity do you participate in: walking frequency: daily duration: 15-30 minutes/day seatbelt use: always do you feel safe at home: Yes ROS Constitutional Constitutional: Reports fatigue, malaise and weakness; Denies anorexia, change in weight, chills, fever(s), night sweats or other Eyes Eyes: Denies blurry vision, change in eye color, change in vision, discharge from eye(s), double vision, erythema, eye pain, loss of vision or other ENT HEENT: Denies abnormal hearing, dysphagia, ear pain, epistaxis, headache(s), hearing loss, nasal congestion, nasal discharge, post nasal drip, sinus pressure, sore throat or other Cardiovascular Cardiovascular: Reports chest pain and rapid heart rate; Denies claudication, dyspnea on exertion, edema, lightheadedness, orthopnea, palpitations, paroxysmal nocturnal dyspnea, syncope or other Respiratory/Chest Respiratory/Chest: Reports cough; Denies dyspnea, excessive phlegm production, hemoptysis, productive cough, shortness of breath at rest, shortness of breath with exertion, wheezing or other Gastrointestinal Gastrointestinal: Denies abdominal pain, coffee ground emesis, constipation, diarrhea, dyspepsia, hematemesis, hematochezia, loose stools, melena, nausea, vomiting or other Genitourinary Genitourinary: Reports burning urination, dysuria and urinary frequency; Denies difficulty urinating, hematuria, nocturia, urinary hesitancy, urinary incontinence, urinary urgency or other Musculoskeletal Musculoskeletal: Reports joint pain; Denies arthralgias, back pain, joint stiffness, joint swelling, myalgias, neck pain or other Neurologic Neurologic: Reports abnormal gait; Denies abnormal speech, confusion, disequilibrium, dizziness, focal weakness, headache(s), numbness, paresthesias, seizure-like activity, seizures, syncope, tingling, tremor(s) or other Psychiatric Psychiatric: Denies anxiety, depression, homicidal ideation, suicidal ideation or other Endocrine Endocrinology: Denies change in body appearance, cold intolerance, excessive sweating, heat intolerance, polydipsia, polyuria or other Hematologic/Lymphatic Hematologic/Lymphatic: Denies anemia, easy bleeding, easy bruising, lymphadenopathy or other Allergic/Immunologic Allergic/Immunologic: Denies rhinitis, hives, eczemia, asthma or other Vital Signs Vital Signs Vital Signs: 06/30/23 18:01 06/30/23 20:09 06/30/23 20:24 Temperature 97.9 F Temperature Source Temporal Pulse Rate 103 H 113 H 116 H Respiratory Rate 20 H 22 H 20 H Blood Pressure 89/56 L 94/66 91/57 L Blood Pressure Mean 67 75 68 Pulse Ox 116 95 95 Oxygen Delivery Method Room Air Room Air Room Air Weight Weight: 57.3 kg Body Mass Index (BMI) 23.1 Physical Exam Const alert, oriented x3, no apparent distress and well nourished; Negative for average body habitus or healthy appearing Constitutional Narrative: Older, white female, sitting up in bed, nursing at bedside, patient appears comfortable but ill, currently nontoxic-appearing General Appearance: cooperative HEENT normocephalic, head/scalp atraumatic and hearing grossly normal bilaterally HEENT Narrative: Dukas membranes are dry, dentition is poor, Mallampati is 1-2, no thrush Eyes Eyes Narrative: Conjunctiva are pale bilaterally, no scleral icterus Neck no lymphadenopathy and supple Neck Narrative: Trachea midline, no thyroid enlargement Resp normal respiratory effort, no retractions, no use of accessory muscles and clear to auscultation bilaterally Auscultation: Negative for rales, rhonchi or wheezes Cardio S1 normal heart sound, S2 normal heart sound, no murmurs, no rub and no gallops; Negative for regular rate, regular rhythm or no clicks Cardio Narrative: Irregular irregular rhythm with mild tachycardia, positive click loudest at left lower sternal border GI normal to inspection, nondistended, normoactive bowel sounds, soft to palpation and non-tender Extremity no clubbing, cyanosis or edema Extremity Narrative: Pedal pulses are 2+ Skin no rashes or lesions noted, no wounds, skin turgor normal, no jaundice, no petechiae and no mottling Skin Narrative: Pale Neuro oriented x3, CN's II-XII intact bilaterally and no focal motor deficits Neuro Narrative: Decreased movement left lower extremity due to pain Speech: speech normal Psych affect normal Psych Narrative: Eye contact is good, patient interacts appropriately however is a poor historian Results Lab / Micro Data Attestation: I reviewed the patient's lab results. 06/30/23 20:05 06/30/23 23:35 Labs: Laboratory Results - last 24 hr 06/30/23 20:05: WBC 15.1 H, RBC 2.59 L, Hgb 7.4 L, Hct 25.0 L, MCV 96.5, MCH 28.6, MCHC 29.6 L, RDW Std Deviation 56.6 H, RDW Coeff of Tk 17.2 H, Plt Count 695 H, MPV 10.3, Neut % (Auto) Not Reportable, Absolute Neuts (auto) 12.2 H, Absolute Lymphs (auto) 1.66, Total Counted 100, Neutrophils % (Manual) 75 H, Band Neutrophils % 6 H, Lymphocytes % (Manual) 11 L, Monocytes % (Manual) 4, Metamyelocytes % 2 H, Myelocytes % 1 H, Promyelocytes % 1 H, Diff Path Review December, PT 30.7 H, INR 2.9, Sodium 128 L, Potassium 6.0 H*, Chloride 94 L, Carbon Dioxide 22.0, Anion Gap 12, BUN 79 H, Creatinine 1.83 H, Estim Creat Clear Calc 21.01, Est GFR (MDRD) Af Amer 35 L, Est GFR (MDRD) Non-Af 29 L, BUN/Creatinine Ratio 43.2 H, Glucose 45 L, Lactic Acid 3.0 H*, Calcium 8.5, Total Creatine Kinase 282 H Rhythm Strip Rhythm Strip: A-fib Rate: 124 Ectopy: None Radiology Impression Abdomen/Pelvis CT 06/30/23 21:56 IMPRESSION: 1. Bilateral perinephric stranding, new as compared to the prior CT. This may represent medical renal disease. No urinary tract stone and no hydronephrosis or hydroureter. 2. Cholelithiasis and gallbladder wall thickening. The gallbladder wall thickening may be secondary to edema from anasarca, however if there is a clinical concern for cholecystitis, recommend follow-up with right upper quadrant ultrasound. 3. Partial visualization of a large left hip effusion versus hematoma. Circumscribed fluid collection in the subcutaneous soft tissues lateral to the left hip slightly decreased in size as compared to the prior CT. Consider follow-up with MRI. 4. Small right pleural effusion. 5. Stable T12 compression fracture. Electronically Signed: Aman Bai DO at 23:03 EST , Assessment & Plan Assessment/Plan (1) Hypoglycemia: (2) Acute hyperkalemia: (3) MURRAY (acute kidney injury): (4) Sepsis: (5) Hyperkalemia: (6) Hyponatremia: (7) Leukocytosis: (8) Anemia: (9) Thrombocytosis: (10) Hip hematoma, left: PLAN: Plan Sepsis secondary to suspected UTI -Patient meets sepsis criteria with new MURRAY, leukocytosis, tachycardia, tachypnea, and elevated lactate -Patient also with abnormal findings on CAT scan of the hip which appear to be chronic however will obtain CAT scan and ESR/CRP -May require arthrocentesis depending on findings -Start broad-spectrum antibiotics with vancomycin and Zosyn -Check blood cultures -Urine cultures pending -UA is suggestive of infection -CT of the abdomen pelvis shows bilateral nephritic stranding which is new compared to previous CT so I suspect it is related to acute infection with her UA findings and clinical presentation -Patient has been fully resuscitated in the emergency department with IV fluids at 30 cc/kg ideal body weight -Blood pressure seems to be stable and does not currently need pressors however we will continue to monitor as antibiotics are infused as gram-negative infection could precipitate decompensation despite fluid resuscitation and current stability -We will admit to ICU and consult critical care medicine MURRAY -Serum creatinine on presentation was 1.83 -Baseline serum creatinine appears to run between 0.35 and 0.65 -Aggressive hydration -Specific gravity on UA is suggestive of concentration with a specific gravity of 1.020 -We will monitor clinically and if improves will reduce IV fluids if she does not improve she will need further work-up for MURRAY -Avoid nephrotoxins as possible Large left hip effusion versus hematoma -Slightly decreased when compared to previous CAT scan -We will get a dedicated CAT scan to that hip -I do worry that she could have an infected hematoma now that she has a sepsis picture -May need arthrocentesis -Need to continue Coumadin for now however as she has mechanical mitral valve if she does need arthrocentesis may need to discontinue Coumadin and transition to heparin drip -Check CRP and ESR -If markedly elevated may need MRI of the hip -Orthopedic surgery consultation Hyperkalemia -Like related to MURRAY -Patient does not appear to be on any supplements -We will trend -Not severe at presentation Lactic acidosis -Secondary to the above -Cycle per sepsis protocol Hyponatremia -Likely related to volume depletion -Continue to monitor Acute Anemia -This has been persistently problematic since her hospitalization for her fracture with her baseline hemoglobin prior to admission being between 12 and 14 -Current hemoglobin is 7.4 and stable when compared to 2 days ago -Check iron studies -Check guaiac stool -Patient is fully anticoagulated due to history of mechanical mitral valve and will need to continue Coumadin currently to event valvular thrombosis -Repeat CBC in a.m. Thrombocytosis -Could be related to infection versus iron deficiency anemia -Iron studies pending -Continue to monitor DM-2 with current hypoglycemia -Hemoglobin A1c on last admission 06/15/2023 was 13.6 -Suspect hypoglycemia is related to her insulin use along with her MURRAY which is new and decreased renal clearance -Hold home metformin -Hold home scheduled insulin -Sliding scale ordered -We will treat with D5 normal saline at a rate of 100 cc/h -Accu-Cheks PAF/aortic valve stenosis/mechanical mitral valve -TAVR performed on 09/18/2020 -Mechanical mitral valve placement in 09/29/2001 -Currently in A-fib with RVR however rates are not anything above 120 -Continue home Coumadin -INR is therapeutic at 2.9 -Goal INR is 2.5-3.5 -Repeat INR in a.m. and daily History of Hypertension -Blood pressures are currently borderline low and seem to have run low during her last hospitalization Hyperlipidemia -Continue home statin -Continue home colestipol GERD -Continue home PPI Vitamin D deficiency -Continue vitamin D supplementation DVT prophylaxis -INR is therapeutic CODE STATUS -DNR CCA with no intubation as verified on admission Sepsis Attestation Sepsis Alert: Yes Sepsis Attestation: Agree w/Sepsis Date exam was performed: 06/30/23 Time exam was performed: 20:50 Possible Source of Sepsis: Bone/joint and Genitourinary Sepsis Organ Dysfunction Criteria Present: SBP < 90 mmHg or MAP < 65 mmHg, Creatinine > 2.0 mg/dL and Lactic Acid > 2 mmol/L Fluid Resuscitation Fluid resuscitation indicated?: Yes Fluid Resuscitation ordered: 30 ml/kg fluid bolus ordered Amount of fluid ordered: 2,000 Sepsis Note Date exam was performed: 07/01/23 Time exam was performed: 01:43 Sepsis Attestation: Sepsis re-evaluation was performed Response to fluids: Non Fluid responsive hypotension (semi responsive however lactate trended up slightly--seems very dry and 1 more L given with pressors to be started if MAP < 65) Charges/Coding Visit Charges Inpatient E&M: 74471 Init Hosp L3
[2023-06-30 23:21] VITALS: BP 97/73; PULSE 108; RESP 14; O2SAT 97
[2023-06-30 23:22] VITALS: BP 97/73; PULSE 103; RESP 16; TEMP 36.6; O2SAT 97
[2023-06-30 23:33] LABS: Mucous, Urine 0 SEEN /hpf (<or=2+)
[2023-06-30] MEDS: 0.9% Normal Saline (500mL Bag) 500 ML 999 ML IV (23:35)
[2023-06-30 23:43] LABS: Color, Urine Yellow (Yellow); Glucose, Dipstick Normal (Normal); Ketone-Dipstick 5 mg/dl (Negative); Leukocyte Esterase-Dipstick 500 /ul (Negative); Nitrite-Dipstick Negative (Negative); Occult Blood-Urine 10 /ul (Negative); Protein-Dipstick 100 mg/dl (Negative); Urine Clarity Clear (Clear); Urine Urobilinogen 4 mg/dl (Normal)
[2023-07-01] VITALS (43 sets, daily range): BP systolic 67–123; BP diastolic 42–88; PULSE 23–135; RESP 11–28; TEMP 36.2–37.6; O2SAT 93–99; BMI 22.1
[2023-07-01] LABS: Urine Bilirubin Dipstick 3 mg/dL (Negative)
[2023-07-01 00:07] LABS: Amorphous Sediment 2+; Bacteria 4+ /hpf (None Seen); Red Blood Cells-Urine 0-5 SEEN /hpf (0-5); Squamous Epithelial Cells - UA 0-5 SEEN /hpf (5-10); White Blood Cells 25-50 SEEN /hpf (0-5)
[2023-07-01 00:14] LABS: Anion Gap 11 (5-15); BUN 80 mg/dL (7-18); BUN/Creat Ratio 47.9 RATIO (10-20); Chloride 98 mmol/L (98-107); Creatinine, Serum 1.67 mg/dL (0.55-1.02); EST Glomerular Filtration Rate 32 mL/min (>60); Est Glom Filt Rate - Afr Amer 38 mL/min (>60); Estimated Creatinine Clearance 23.02 ml/min; Glucose 43 mg/dL (74-106); Potassium 5.6 mmol/L (3.5-5.1); Sodium Level 130 mmol/L (136-145)
[2023-07-01 00:15] LABS: Reflex Lactate? Y
[2023-07-01] MEDS: Dextrose 50%-Water 25 GM/50 ML DISP.SYRIN IV ×2 (00:19→12:36)
--- NOTE | 2023-07-01 00:23 | ED.RN ---
LAB CALLED WITH CRITICAL GLUCOSE 43. DR TRINH AWARE AND AMP OF D50 GIVEN.
[2023-07-01] MEDS: 0.9% Normal Saline (1000mL) 1,000 ML 100 ML IV (00:52)
[2023-07-01] MEDS: Ceftriaxone 1 GM/50 ML BAG IV (00:53)
--- NOTE | 2023-07-01 01:24 | CT_ITS ---
INDICATION: pain/effusion EXAMINATION: CT Lower Extremity W/O Contrast Injection TECHNIQUE: Helically acquired images were obtained of the left lower extremity from the left lower pelvis to the mid femur with sagittal and coronal reconstructed images. Individualized dose optimization techniques were used for this CT. IV contrast dosage and agent: None. COMPARISON: 06/19/2023 CT. FINDINGS: Again seen is a large hematoma in the left by extending from the intertrochanteric region of the left femur and the distal portion not completely included in the [id number]. The largest portion of the hematoma measures 7.5 x 8.6 cm, previously measuring 6.3 x 7.0 cm. There is heterogeneous hypoattenuating and hyperattenuating fluid within the hematoma. Again noted is a periprosthetic intertrochanteric fracture. Chronic pelvic fractures are again seen. There are extensive vascular calcifications. Probable seroma again seen lateral to the left hip. CT/Extremity Lower without Contra IMPRESSION: 1. Large hematoma in the left thigh, likely intramuscular within the lateral vastus lateralis muscle, with evidence of acute on chronic hemorrhage. Overall they hematoma appears increased in size as compared to 06/19/2023. The distalmost portion of the hematoma is not completely included in the [id number]. 2. Periprosthetic intertrochanteric fracture of the left femur. Electronically Signed: Aman Bai DO at 2:15 EST ,
[2023-07-01 01:36] LABS: Lactic Acid 3.4 mmol/L (0.4-1.9)
[2023-07-01 01:55] LABS: Erythrocyte Sedimentation Rate 32 mm/hr (0-30)
[2023-07-01] MEDS: Lactated Ringers 1,000 ML 999 ML IV (01:58)
[2023-07-01 02:12] LABS: Bedside Glucose 31 mg/dL (74-106)
[2023-07-01 02:12] LABS: Bedside Glucose 86 mg/dL (74-106)
[2023-07-01 03:33] LABS: Hematocrit 23.8 % (37-47); Mean Corp Hgb Conc 29.4 g/dL (32-36); Mean Corpuscular Hgb 28.9 pg (27.0-32.0); Mean Corpuscular Volume 98.3 fL (81-99); POSITIVE COUNT YES; POSITIVE MORPHOLOGY YES; Platelet Count 639 K/mm3 (150-450); RBC Distribution Width SD 58.6 fl (35.1-43.9); Red Blood Count 2.42 M/mm3 (4.2-5.4); White Blood Count 16.6 K/mm3 (4.4-11.0)
[2023-07-01] MEDS: Dextrose 5%/0.9% NaCl 1,000 ML 100 ML IV ×2 (03:40→16:10)
[2023-07-01 03:43] LABS: Differential Indicated MANUAL DIFF
[2023-07-01 03:54] LABS: ALB/GLOB Ratio 0.5 RATIO (0.9-2.4); AST(SGOT) 166 U/L (15-37); Alanine Aminotransfer ALT/SGPT 40 U/L (13-56); Alkaline Phosphatase 218 U/L (45-117); Anion Gap 16 (5-15); BUN 76 mg/dL (7-18); BUN/Creat Ratio 48.7 RATIO (10-20); Calcium,Total 7.6 mg/dL (8.5-10.1); Chloride 100 mmol/L (98-107); Creatinine, Serum 1.56 mg/dL (0.55-1.02); EST Glomerular Filtration Rate 34 mL/min (>60); Est Glom Filt Rate - Afr Amer 42 mL/min (>60); Estimated Creatinine Clearance 24.64 ml/min; Glucose 72 mg/dL (74-106); Magnesium 2.3 mg/dL (1.6-2.6); Phosphorus 4.5 mg/dL (2.5-4.9); Potassium 5.5 mmol/L (3.5-5.1); Sodium Level 132 mmol/L (136-145)
[2023-07-01] MEDS: 0.9% Saline Lock 10 ML Syringe IV ×3 (03:57→23:13)
[2023-07-01 04:02] LABS: Ferritin 1050 ng/mL (8-252); Iron 36 ug/dL (50-170); Iron Binding Capacity,Total 280 ug/dL (250-450); PERCENT IRON SATURATION 12.9 % (15.0-55.0)
[2023-07-01 04:20] LABS: Neutrophil-Band 2 % (0-5); Neutrophil-Segmented 84 % (47-70); Total Cells Counted 100 (MANUAL DIFF)
[2023-07-01 04:21] LABS: Absolute Lymphocyte Count 0.99 X10^3/uL (0.83-4.51); Absolute Neutrophil Count 14.3 X10^3/uL (2.0-7.7); Anisocytosis 1+; Hypochromasia 1+; Lymphocyte 6 % (19-41); Lymphocyte # 0.99 X10^3/ul (0.83-4.51); Macrocytosis RARE; Metamyelocyte 3 % (0-1); Microcytosis RARE; Monocyte 3 % (0-10); Myelocyte 2 % (0-0); Neutrophil # 14.26 X10^3/uL (2.7-7.7); Platelet Estimate ADEQUATE (ADEQ); Polychromasia RARE
[2023-07-01 04:26] LABS: Bedside Glucose 70 mg/dL (74-106)
[2023-07-01] MEDS: Vancomycin HCl 1,500 MG in 0.9% Normal Saline (500mL Bag) 500 ML 250 MG IV (05:09)
[2023-07-01] MEDS: Piperacil/Tazobactam 3.375 GM in 0.9% Normal Saline (50mL MB+) 50 ML IV ×3 (05:46→21:44)
--- NOTE | 2023-07-01 06:11 | PHA.PHARE_ITS ---
Consult Antibiotic Management Pharmacy has been consulted to manage selected antiobiotic: Vancomycin Type of Intervention Type of Consult: New start Labs Labs: Sodium 132 mmol/L (136-145) L 07/01/23 03:26 Potassium 5.5 mmol/L (3.5-5.1) H 07/01/23 03:26 Chloride 100 mmol/L (98-107) 07/01/23 03:26 Carbon Dioxide 16.0 mmol/L (21.0-32.0) L 07/01/23 03:26 Anion Gap 16 (5-15) H 07/01/23 03:26 BUN 76 mg/dL (7-18) H 07/01/23 03:26 Creatinine 1.56 mg/dL (0.55-1.02) H 07/01/23 03:26 Est GFR (MDRD) Af Amer 42 mL/min (>60) L 07/01/23 03:26 Est GFR (MDRD) Non-Af 34 mL/min (>60) L 07/01/23 03:26 BUN/Creatinine Ratio 48.7 RATIO (10-20) H 07/01/23 03:26 Glucose 72 mg/dL (74-106) L 07/01/23 03:26 Dosing Weight Weight used for dosin kg Estimated Creatinine Clearance Estimated Creatinine Clearance: 39.1 Goal Trough Goal Trough: 15-20 mcg/mL Pharmacy Plan for Drug Dosing Pharmacy Plan for Drug Dosing: Pharmacy Service will continue to monitor and adjust dosing as required. Follow-Up Labs Follow-Up Labs: Trough: Vancomycin Date/Time Labs Ordered Labs to be done on [date and time ordered]: 07/03 @ 0434
[2023-07-01 06:31] LABS: Prothrombin Time (Protime)PT. 39.8 SECONDS (11.7-14.9)
--- NOTE | 2023-07-01 06:34 | PCM.HOSP.N ---
Hospitalist Note Patient's map for the most part through the night have been greater than 65 so pressors have not yet been initiated. Her labs this morning reveal slightly improved renal function however her hemoglobin is dropped to 7 which is pretty close to the lowest its been. She had 1 episode of 6.9. I will stop her Coumadin and put her on a heparin drip for now I hesitate to completely stop anticoagulation as she does have a history of mechanical mitral valve and a would like to avoid thrombosis of this valve however if bleeding is an issue we may have to discontinue this. Her ferritin is markedly elevated as is her CRP and ESR. I am concerned that she may have an infected hematoma in that left hip. Dedicated imaging to the hip shows that her fluid collection/hematoma/effusion is actually enlarged from previous. I did discuss the case with the ICU attending so he would be aware of the overall history as well as her current laboratory concerns and my concerns about an infected hematoma. Orthopedic surgery consult was pending. She also is continuing to have A-fib with RVR. We will give digoxin 250 mcg x 1 dose. If does not improve may need amiodarone for improved heart rate control. Will check type and screen.
[2023-07-01] MEDS: Digoxin 250 MCG/ML Ampul IV (06:52)
[2023-07-01] MEDS: HEPARIN/D5w 25,000 UNITS 25,000 UNITS/250 ML IV.SOLN. 8 UNITS CONT INF (06:53)
--- NOTE | 2023-07-01 07:32 | EX.PCM.CONCC ---
Assessment & Plan Assessment/Plan (1) Hip hematoma, left: (2) Sepsis: PLAN: Plan RECOMMENDATIONS: 1. Continue broad-spectrum antimicrobials. 2. Stop heparin infusion, given coagulopathy. Monitor INR daily. 3. Initiate Levophed, if needed, to maintain hemodynamic stability. 4. Await orthopedic surgery evaluation. 5. Amiodarone for rate/rhythm control. 6. The patient will remain n.p.o. for now, pending evaluation by orthopedic surgery. IMPRESSIONS: 1. Sepsis The patient presented with sepsis due to probable urinary tract source of infection +/- infected left hip hematoma with acute sepsis related organ dysfunction as evidenced by lactic acidemia. The patient did receive supplemental IV fluid hydration with tenuous hemodynamics. If the patient becomes hemodynamically unstable, we will plan to initiate vasopressor support. In the interim, she will remain on empiric broad-spectrum antimicrobials. Orthopedic surgery consultation is pending. 2. Possible left hip hematoma The patient underwent BORIS in October and subsequently developed a hematoma and periprosthetic fracture, which has been managed nonsurgically. Unfortunately, the patient has a need to remain on systemic anticoagulation due to her underlying mechanical valve. Therefore, we are unable to completely discontinue her anticoagulation. Given that she has an INR this morning of 4.0, will hold all Coumadin and heparin products and monitor INR daily. Once her INR becomes subtherapeutic, she will be initiated on a heparin infusion. 3. Anemia Likely secondary to slow loss from hematoma. Plan to transfuse blood products as ordered. Check H&H posttransfusion. Continue PPI therapy as ordered. 4. Atrial fibrillation with RVR/aortic valve stenosis/mechanical mitral valve Plan to provide the patient with an amiodarone bolus and subsequent infusion in hopes of achieving better rate/rhythm control. Continue to monitor INR daily and initiate heparin infusion once INR is subtherapeutic. 5. History of hyperlipidemia/GERD/diabetes mellitus Complicates care, management, recovery and prognosis. Continue sliding scale insulin coverage. Physical therapy evaluation, once medically stabilized. This note was generated with ITM Softwareation software. It may contain incorrect words, spelling, and punctuation that were not noted in checking the note before signing. HPI Consult Data Date of Consult: 07/01/23 HPI Narrative Reason for Consultation: Sepsis HPI Narrative: The patient is a 73-year-old female, with a history as outlined below, who presented to the emergency department via EMS on the morning of July 01 with worsening left hip pain and lower extremity swelling. On June 09, the patient was evaluated in the emergency department due to an inability to ambulate and was found to have a periprosthetic fracture with surrounding hematoma. Orthopedic surgery was consulted and recommended nonweightbearing status. The patient was sent to a [facility]. The patient did have a left total hip arthroplasty in October [address] Weston. The patient also has a history of aortic valve stenosis and is status post mechanical mitral valve. She is systemically anticoagulated on Coumadin at her baseline. On presentation to the emergency department, the patient was noted to be mildly tachycardic and tachypneic with a blood pressure of 89/56 mmHg. She was maintaining appropriate oxygen saturations on room air. Initial laboratory evaluation revealed an elevated white blood cell count of 15,000. Hemoglobin was low at 7.4 g/dL. 6% band neutrophils were noted on differential. Coagulation profile revealed an INR of 2.9. Chemistry profile was notable for a sodium of 132, potassium of 5.5 and creatinine of 1.56. Initial lactate was elevated at 3.4. Urine analysis was positive for leukocyte esterase and 4+ urine bacteria. CT abdomen/pelvis demonstrated bilateral perinephric stranding along with a large left hip effusion versus hematoma. Lower extremity CT confirmed a large hematoma in the left thigh along with a periprosthetic intertrochanteric fracture of the left femur. The patient received IV fluid resuscitation and was initiated on broad-spectrum antimicrobials. She was admitted to the medical intensive care unit for further management. [facility] Medical History Abnormal electrocardiogram Abrasion Alcohol use Anemia Angina at rest Arthritis Atherosclerotic heart disease of [place] coronary artery without angina pectoris Atrial fibrillation Back pain Bacteremia Blood infection Cardiology follow-up encounter Depression Dietary restriction Dyslipidemia Encounter for long-term current use of high risk medication Essential hypertension Former smoker Gastric reflux High cholesterol History of atrial fibrillation History of echocardiogram History of hiatal hernia History of irregular heartbeat History of pain when walking History of renal disease History of stress test Hx of fracture of arm Hx of uterine prolapse Hypertension Insulin dependent diabetes mellitus Leg cramps Loss of hearing Mitral valve disorder Murmur, functional Nonrheumatic aortic (valve) stenosis Palpitations Paroxysmal atrial fibrillation Paroxysmal ventricular tachycardia Post-menopausal Premature atrial contraction Premature ventricular contraction Restless legs Shortness of breath on exertion SIRS (systemic inflammatory response syndrome) Type 2 diabetes mellitus Ventricular tachycardia Vertigo Wears glasses Wears partial dentures Home Medications gemfibrozil 600 mg tablet (Lopid) 600 mg PO BIDAC CHOLESTEROL 07/10/13 [History Last Taken 06/09/23] atorvastatin 40 mg tablet 40 mg PO DAILY CHOLESTEROL 12/21/17 [History Last Taken 06/09/23] meclizine 12.5 mg tablet 12.5 mg PO TID PRN DIZZINESS 09/30/20 [History Last Taken 10/20/22] cholecalciferol (vitamin D3) 50 mcg (2,000 unit) capsule (Vitamin D3) 50 mcg PO DAILY SUPPLEMENT 10/14/22 [History Last Taken 06/08/23] diphenhydramine HCl 25 mg capsule (Benadryl) 50 mg PO QHS SLEEP 10/14/22 [History Last Taken 06/08/23] colestipol 1 gram tablet (Colestid) 1 g PO DAILY CHOLESTEROL 03/24/23 [History Last Taken 06/09/23] metformin 500 mg tablet,extended release 24 hr 1,000 mg PO BID BLOOD SUGARS 06/09/23 [History Last Taken 06/09/23] omeprazole 40 mg capsule,delayed release 40 mg PO BID ACID REFLUX 06/09/23 [History Last Taken 06/09/23] Remove Patch 1 patch topical DAILY@2200 ##0 06/12/23 [Rx Last Taken Unknown] insulin lispro 100 unit/mL subcutaneous pen (Humalog KwikPen (U-100) Insulin) See Protocol subcut TIDAC #0 mL 06/12/23 [Rx Last Taken Unknown] lidocaine 5 % topical patch 1 patch topical DAILY #0 ea 06/12/23 [Rx Last Taken Unknown] polyethylene glycol 3350 17 gram oral powder packet 17 g PO DAILY #0 ea 06/12/23 [Rx Last Taken Unknown] acetaminophen 325 mg capsule 325 mg PO Q4H PRN pain 06/19/23 [History Last Taken Unknown] acetaminophen 500 mg tablet (Acetaminophen Extra Strength) 1,000 mg PO QHS PRN pain 06/19/23 [History Last Taken Unknown] enoxaparin 60 mg/0.6 mL subcutaneous syringe 50 mg subcut DAILY 06/19/23 [History Last Taken Unknown] insulin glargine U-300 conc 300 unit/mL (1.5 mL) subcutaneous pen (Toujeo SoloStar U-300 Insulin) 15 unit subcut DAILY 06/19/23 [History Last Taken Unknown] insulin glargine-yfgn 100 unit/mL (3 mL) subcutaneous pen 15 unit subcut DAILY 06/19/23 [History Last Taken Unknown] insulin lispro 100 unit/mL subcutaneous solution (Humalog U-100 Insulin) 17 unit subcut QPM 06/19/23 [History Last Taken Unknown] methocarbamol 500 mg tablet 500 mg PO 4X/DAY PRN PRN Muscle pain/spasm #40 tabs 06/19/23 [Rx Last Taken Unknown] mirtazapine 15 mg tablet (Remeron) 15 mg PO QHS 06/19/23 [History Last Taken Unknown] oxycodone-acetaminophen 5 mg-325 mg tablet (Percocet) 1 tab PO Q6H PRN pain 7 days #28 tabs 06/19/23 [Rx Last Taken Unknown] insulin glargine 100 unit/mL (3 mL) subcutaneous pen (Lantus Solostar U-100 Insulin) 15 unit subcut BREAKFAST 06/30/23 [History Last Taken Unknown] insulin glargine 100 unit/mL (3 mL) subcutaneous pen (Lantus Solostar U-100 Insulin) 17 unit subcut QPM 06/30/23 [History Last Taken Unknown] warfarin 4 mg tablet 4 mg PO MOWEFR 06/30/23 [History Last Taken Unknown] warfarin 5 mg tablet 5 mg PO .TUTHSASU BLOOD THINNER 06/30/23 [History Last Taken Unknown] Allergy/AdvReac Type Severity Reaction Status Date / Time Calcium Channel Blocking Allergy Rash Verified 06/30/23 18:05 Agent Dilt [Calcium Channel Blocking Agents-Win] Family History Mother CAD (coronary artery disease) Brother hyperlipidemia Brother Hypertension Father CAD (coronary artery disease) Surgical History Bioprosthetic mitral valve replacement, current hospitalization History of cardiac catheterization History of left heart catheterization (LHC) (~07/19/20) History of mitral valve replacement with mechanical valve (~09/29/01) History of total left hip replacement Hx of colonoscopy Hx of dilation and curettage Hx of inguinal hernia repair Hx of lithotripsy 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 Physical Exam Const alert and no apparent distress General Appearance: cooperative HEENT normocephalic and head/scalp atraumatic Eyes PERRL, EOMs intact bilaterally and conjunctivae normal Neck supple General: trachea midline Chest inspection of chest normal Resp normal respiratory effort Auscultation: Negative for rales, rhonchi or wheezes Cardio S1 normal heart sound and S2 normal heart sound Cardio Narrative: + Click Rate: tachycardic Rhythm: abnormal rhythm Heart Sounds: murmur GI normal to inspection, nondistended, normoactive bowel sounds Extremity no clubbing, cyanosis or edema Extremity Narrative: Tense skin over left hip without any ecchymoses or overlying induration/erythema Skin no rashes or lesions noted Neuro CN's II-XII intact bilaterally and no focal motor deficits Psych Activity / Motor Behavior: restless Lab / Micro Data 07/01/23 08:45 07/01/23 03:26 Labs: Laboratory Results - last 24 hr 06/30/23 20:05: WBC 15.1 H, RBC 2.59 L, Hgb 7.4 L, Hct 25.0 L, MCV 96.5, MCH 28.6, MCHC 29.6 L, RDW Std Deviation 56.6 H, RDW Coeff of Tk 17.2 H, Plt Count 695 H, MPV 10.3, Neut % (Auto) Not Reportable, Absolute Neuts (auto) 12.2 H, Absolute Lymphs (auto) 1.66, Total Counted 100, Neutrophils % (Manual) 75 H, Band Neutrophils % 6 H, Lymphocytes % (Manual) 11 L, Monocytes % (Manual) 4, Metamyelocytes % 2 H, Myelocytes % 1 H, Promyelocytes % 1 H, Diff Path Review December, ESR 32 H, PT 30.7 H, INR 2.9, Sodium 128 L, Potassium 6.0 H*, Chloride 94 L, Carbon Dioxide 22.0, Anion Gap 12, BUN 79 H, Creatinine 1.83 H, Estim Creat Clear Calc 21.01, Est GFR (MDRD) Af Amer 35 L, Est GFR (MDRD) Non-Af 29 L, BUN/Creatinine Ratio 43.2 H, Glucose 45 L, Lactic Acid 3.0 H*, Calcium 8.5, Total Creatine Kinase 282 H, C-React Prot Ext Range 153.00 H 06/30/23 23:25: Urine Color Yellow, Urine Clarity Clear, Urine pH 5.0, Ur Specific [place] 1.020, Urine Protein 100 H, Urine Glucose (UA) Normal, Urine Ketones 5 H, Urine Occult Blood 10 H, Urine Nitrite Negative, Urine Bilirubin 3 H, Urine Urobilinogen 4 H, Ur Leukocyte Esterase 500 H, Urine RBC 0-5 SEEN, Urine WBC 25-50 SEEN, Ur Squamous Epith Cells 0-5 SEEN, Amorphous Sediment 2+, Urine Bacteria 4+, Urine Mucus 0 SEEN 06/30/23 23:35: Sodium 130 L, Potassium 5.6 H, Chloride 98, Carbon Dioxide 21.0, Anion Gap 11, BUN 80 H, Creatinine 1.67 H, Estim Creat Clear Calc 23.02, Est GFR (MDRD) Af Amer 38 L, Est GFR (MDRD) Non-Af 32 L, BUN/Creatinine Ratio 47.9 H, Glucose 43 L*, Calcium 8.0 L 07/01/23 00:14: POC Glucose 31 L* 07/01/23 00:48: Lactic Acid 3.4 H* 07/01/23 01:52: POC Glucose 86 07/01/23 02:57: Lactic Acid 5.0 H* 07/01/23 03:26: WBC 16.6 H, RBC 2.42 L, Hgb 7.0 L, Hct 23.8 L, MCV 98.3, MCH 28.9, MCHC 29.4 L, RDW Std Deviation 58.6 H, RDW Coeff of Tk 18.0 H, Plt Count 639 H, MPV 10.0, Neut % (Auto) Not Reportable, Absolute Neuts (auto) 14.3 H, Absolute Lymphs (auto) 0.99, Total Counted 100, Neutrophils % (Manual) 84 H, Band Neutrophils % 2, Lymphocytes % (Manual) 6 L, Monocytes % (Manual) 3, Metamyelocytes % 3 H, Myelocytes % 2 H, Diff Path Review May foll, Platelet Estimate ADEQUATE, Polychromasia RARE, Hypochromasia 1+, Anisocytosis 1+, Microcytosis RARE, Macrocytosis RARE, Sodium 132 L, Potassium 5.5 H, Chloride 100, Carbon Dioxide 16.0 L, Anion Gap 16 H, BUN 76 H, Creatinine 1.56 H, Estim Creat Clear Calc 24.64, Est GFR (MDRD) Af Amer 42 L, Est GFR (MDRD) Non-Af 34 L, BUN/Creatinine Ratio 48.7 H, Glucose 72 L, Calcium 7.6 L, Phosphorus 4.5, Magnesium 2.3, Iron 36 L, TIBC 280, Iron Saturation 12.9 L, Ferritin 1050 H, Total Bilirubin 2.10 H, AST 166 H, ALT 40, Alkaline Phosphatase 218 H, Total Protein 6.0 L, Albumin 2.0 L, Globulin 4.0, Albumin/Globulin Ratio 0.5 L 07/01/23 03:41: POC Glucose 70 L 07/01/23 06:15: PT 39.8 H, INR 4.0 H* 07/01/23 07:07: Crossmatch See Detail Rhythm Strip Rhythm Strip: A-fib Rate: 124 Ectopy: None Radiology Impression Abdomen/Pelvis CT 06/30/23 21:56 IMPRESSION: 1. Bilateral perinephric stranding, new as compared to the prior CT. This may represent medical renal disease. No urinary tract stone and no hydronephrosis or hydroureter. 2. Cholelithiasis and gallbladder wall thickening. The gallbladder wall thickening may be secondary to edema from anasarca, however if there is a clinical concern for cholecystitis, recommend follow-up with right upper quadrant ultrasound. 3. Partial visualization of a large left hip effusion versus hematoma. Circumscribed fluid collection in the subcutaneous soft tissues lateral to the left hip slightly decreased in size as compared to the prior CT. Consider follow-up with MRI. 4. Small right pleural effusion. 5. Stable T12 compression fracture. Electronically Signed: Aman Bai DO at 23:03 EST , Lower Extremity CT 07/01/23 01:24 IMPRESSION: 1. Large hematoma in the left thigh, likely intramuscular within the lateral vastus lateralis muscle, with evidence of acute on chronic hemorrhage. Overall they hematoma appears increased in size as compared to 06/19/2023. The distalmost portion of the hematoma is not completely included in the [id number]. 2. Periprosthetic intertrochanteric fracture of the left femur. Electronically Signed: Aman DO Richardson at 2:15 EST , Charges/Coding Visit Charges Inpatient E&M: 51861 Init Hosp L3
[2023-07-01 07:37] LABS: CPK Total, Creatine Kinase 179 U/L (26-192)
[2023-07-01 08:04] LABS: Reflex Lactate? Y
--- NOTE | 2023-07-01 08:47 | CASEMGMT ---
Patient is from [facility]. SW sent updates to [facility] via [employer]. SW will also check with patient to make sure her plan is to return to [facility] at d/c. Patient will need pre-cert in order to return. Breana RAYA
[2023-07-01 09:27] LABS: Lactic Acid 3.7 mmol/L (0.4-1.9)
[2023-07-01] MEDS: oxyCODONE 5 MG Tablet PO (09:31)
--- NOTE | 2023-07-01 09:31 | CASEMGMT ---
SW spoke with patient and confirmed her plan is to return to [facility] at discharge. Breana Caldwell [employer]
[2023-07-01] MEDS: Amiodarone 150 MG in Dextrose 5%-Water (100mL Bag) 100 ML 600 MG IV BOLUS (09:36)
[2023-07-01 10:22] LABS: Anion Gap 9 (5-15); BUN 65 mg/dL (7-18); BUN/Creat Ratio 52.8 RATIO (10-20); Calcium,Total 7.3 mg/dL (8.5-10.1); Chloride 104 mmol/L (98-107); Creatinine, Serum 1.23 mg/dL (0.55-1.02); EST Glomerular Filtration Rate 45 mL/min (>60); Est Glom Filt Rate - Afr Amer 55 mL/min (>60); Estimated Creatinine Clearance 31.26 ml/min; Glucose 157 mg/dL (74-106); Potassium 6.4 mmol/L (3.5-5.1); Sodium Level 131 mmol/L (136-145)
--- NOTE | 2023-07-01 10:29 | CON.PCM.OR_ITS ---
HPI Consult Data Date of Consult: 07/01/23 HPI Narrative Reason for Consultation: Periprosthetic fracture, and soft tissue hematoma HPI Narrative: MACIEL BUCIO, is a 73 F who presents to the ER with pain. Patient has a history of left total hip arthroplasty with Dr. Weston in October 2022. She says I always fall her most recent fall was a week ago. She presented to the ER this time for increased pain. Pain is located in several places including the hip lumbar spine and flank bilaterally. She was found to have 4+ bacteria in her urine. Blood cultures are pending at this time. She is hypotensive, tachycardic A-fib with RVR her Coumadin and heparin drip have stopped due to an INR that jumped from 2.9 on admission to 4.0. Her hemoglobin is 7.0 she is receiving 2 units of blood. [facility] Medical History Abnormal electrocardiogram Abrasion Alcohol use Anemia Angina at rest Arthritis Atherosclerotic heart disease of [place] coronary artery without angina pectoris Atrial fibrillation Back pain Bacteremia Blood infection Cardiology follow-up encounter Depression Dietary restriction Dyslipidemia Encounter for long-term current use of high risk medication Essential hypertension Former smoker Gastric reflux High cholesterol History of atrial fibrillation History of echocardiogram History of hiatal hernia History of irregular heartbeat History of pain when walking History of renal disease History of stress test Hx of fracture of arm Hx of uterine prolapse Hypertension Insulin dependent diabetes mellitus Leg cramps Loss of hearing Mitral valve disorder Murmur, functional Nonrheumatic aortic (valve) stenosis Palpitations Paroxysmal atrial fibrillation Paroxysmal ventricular tachycardia Post-menopausal Premature atrial contraction Premature ventricular contraction Restless legs Shortness of breath on exertion SIRS (systemic inflammatory response syndrome) Type 2 diabetes mellitus Ventricular tachycardia Vertigo Wears glasses Wears partial dentures Home Medications gemfibrozil 600 mg tablet (Lopid) 600 mg PO BIDAC CHOLESTEROL 07/10/13 [History Last Taken 06/09/23] atorvastatin 40 mg tablet 40 mg PO DAILY CHOLESTEROL 12/21/17 [History Last Taken 06/09/23] meclizine 12.5 mg tablet 12.5 mg PO TID PRN DIZZINESS 09/30/20 [History Last Taken 10/20/22] cholecalciferol (vitamin D3) 50 mcg (2,000 unit) capsule (Vitamin D3) 50 mcg PO DAILY SUPPLEMENT 10/14/22 [History Last Taken 06/08/23] diphenhydramine HCl 25 mg capsule (Benadryl) 50 mg PO QHS SLEEP 10/14/22 [History Last Taken 06/08/23] colestipol 1 gram tablet (Colestid) 1 g PO DAILY CHOLESTEROL 03/24/23 [History Last Taken 06/09/23] metformin 500 mg tablet,extended release 24 hr 1,000 mg PO BID BLOOD SUGARS 06/09/23 [History Last Taken 06/09/23] omeprazole 40 mg capsule,delayed release 40 mg PO BID ACID REFLUX 06/09/23 [History Last Taken 06/09/23] Remove Patch 1 patch topical DAILY@2200 ##0 06/12/23 [Rx Last Taken Unknown] insulin lispro 100 unit/mL subcutaneous pen (Humalog KwikPen (U-100) Insulin) See Protocol subcut TIDAC #0 mL 06/12/23 [Rx Last Taken Unknown] lidocaine 5 % topical patch 1 patch topical DAILY #0 ea 06/12/23 [Rx Last Taken Unknown] polyethylene glycol 3350 17 gram oral powder packet 17 g PO DAILY #0 ea 06/12/23 [Rx Last Taken Unknown] acetaminophen 325 mg capsule 325 mg PO Q4H PRN pain 06/19/23 [History Last Taken Unknown] acetaminophen 500 mg tablet (Acetaminophen Extra Strength) 1,000 mg PO QHS PRN pain 06/19/23 [History Last Taken Unknown] enoxaparin 60 mg/0.6 mL subcutaneous syringe 50 mg subcut DAILY 06/19/23 [History Last Taken Unknown] insulin glargine U-300 conc 300 unit/mL (1.5 mL) subcutaneous pen (Toujeo SoloStar U-300 Insulin) 15 unit subcut DAILY 06/19/23 [History Last Taken Unknown] insulin glargine-yfgn 100 unit/mL (3 mL) subcutaneous pen 15 unit subcut DAILY 06/19/23 [History Last Taken Unknown] insulin lispro 100 unit/mL subcutaneous solution (Humalog U-100 Insulin) 17 unit subcut QPM 06/19/23 [History Last Taken Unknown] methocarbamol 500 mg tablet 500 mg PO 4X/DAY PRN PRN Muscle pain/spasm #40 tabs 06/19/23 [Rx Last Taken Unknown] mirtazapine 15 mg tablet (Remeron) 15 mg PO QHS 06/19/23 [History Last Taken Unknown] oxycodone-acetaminophen 5 mg-325 mg tablet (Percocet) 1 tab PO Q6H PRN pain 7 days #28 tabs 06/19/23 [Rx Last Taken Unknown] insulin glargine 100 unit/mL (3 mL) subcutaneous pen (Lantus Solostar U-100 Insulin) 15 unit subcut BREAKFAST 06/30/23 [History Last Taken Unknown] insulin glargine 100 unit/mL (3 mL) subcutaneous pen (Lantus Solostar U-100 Insulin) 17 unit subcut QPM 06/30/23 [History Last Taken Unknown] warfarin 4 mg tablet 4 mg PO MOWEFR 06/30/23 [History Last Taken Unknown] warfarin 5 mg tablet 5 mg PO .TUTHSASU BLOOD THINNER 06/30/23 [History Last Taken Unknown] Allergy/AdvReac Type Severity Reaction Status Date / Time Calcium Channel Blocking Allergy Rash Verified 06/30/23 18:05 Agent Dilt [Calcium Channel Blocking Agents-Win] Family History Mother CAD (coronary artery disease) Brother hyperlipidemia Brother Hypertension Father CAD (coronary artery disease) Surgical History Bioprosthetic mitral valve replacement, current hospitalization History of cardiac catheterization History of left heart catheterization (LHC) (~07/19/20) History of mitral valve replacement with mechanical valve (~09/29/01) History of total left hip replacement Hx of colonoscopy Hx of dilation and curettage Hx of inguinal hernia repair Hx of lithotripsy 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) Social History Smoking Status: Former smoker alcohol intake: never substance use type: does not use caffeine: Yes Type: coffee Number of servings: 1 what type of physical activity do you participate in: walking frequency: daily duration: 15-30 minutes/day seatbelt use: always do you feel safe at home: Yes Vital Signs Vital Signs Vital Signs: 06/30/23 18:01 06/30/23 20:09 06/30/23 20:24 Temperature 97.9 F Temperature Source Temporal Pulse Rate 103 H 113 H 116 H Respiratory Rate 20 H 22 H 20 H Respiratory Effort Respiratory Depth Respiratory Pattern Blood Pressure 89/56 L 94/66 91/57 L Blood Pressure [BP] Blood Pressure Mean 67 75 68 Blood Pressure Mean [BP] Blood Pressure Source Blood Pressure Source [BP] Blood Pressure Position Blood Pressure Position [BP] Blood Pressure Location Blood Pressure Location [BP] Pulse Ox 116 95 95 Oxygen Delivery Method Room Air Room Air Room Air 06/30/23 23:21 06/30/23 23:22 06/30/23 23:22 Temperature 97.8 F Temperature Source Temporal Pulse Rate 108 H 103 H 103 H Respiratory Rate 14 16 16 Respiratory Effort Respiratory Depth Respiratory Pattern Blood Pressure 97/73 97/73 97/73 Blood Pressure [BP] Blood Pressure Mean 81 81 81 Blood Pressure Mean [BP] Blood Pressure Source Blood Pressure Source [BP] Blood Pressure Position Blood Pressure Position [BP] Blood Pressure Location Blood Pressure Location [BP] Pulse Ox 97 97 97 Oxygen Delivery Method Room Air Room Air 07/01/23 01:00 07/01/23 01:34 07/01/23 01:56 Temperature 97.8 F Temperature Source Temporal Pulse Rate 23 L 102 H 109 H Respiratory Rate 25 H 22 H 25 H Respiratory Effort Respiratory Depth Respiratory Pattern Blood Pressure 96/58 L 89/59 L 99/54 L Blood Pressure [BP] Blood Pressure Mean 70 69 69 Blood Pressure Mean [BP] Blood Pressure Source Blood Pressure Source [BP] Blood Pressure Position Blood Pressure Position [BP] Blood Pressure Location Blood Pressure Location [BP] Pulse Ox 99 96 98 Oxygen Delivery Method Room Air Room Air Room Air 07/01/23 03:15 07/01/23 03:30 07/01/23 03:30 Temperature 97.5 F L Temperature Source Oral Pulse Rate 113 H 117 H Respiratory Rate 26 H 27 H Respiratory Effort Normal Non-Labored Respiratory Depth Normal Respiratory Pattern Normal Blood Pressure 103/78 87/63 L Blood Pressure [BP] Blood Pressure Mean 86 71 Blood Pressure Mean [BP] Blood Pressure Source Monitor Monitor Blood Pressure Source [BP] Blood Pressure Position Semi-Fowlers Semi-Fowlers Blood Pressure Position [BP] Blood Pressure Location Left Arm Left Arm Blood Pressure Location [BP] Pulse Ox 97 98 Oxygen Delivery Method Room Air Room Air Room Air 07/01/23 03:45 07/01/23 04:00 07/01/23 03:32 Temperature 97.5 F L Temperature Source Temporal Pulse Rate 115 H 121 H 114 H Respiratory Rate 25 H 18 25 H Respiratory Effort Respiratory Depth Respiratory Pattern Blood Pressure 100/57 L 86/56 L 87/63 L Blood Pressure [BP] Blood Pressure Mean 71 66 71 Blood Pressure Mean [BP] Blood Pressure Source Monitor Monitor Blood Pressure Source [BP] Blood Pressure Position Semi-Fowlers Semi-Fowlers Blood Pressure Position [BP] Blood Pressure Location Left Arm Left Arm Blood Pressure Location [BP] Pulse Ox 97 96 98 Oxygen Delivery Method Room Air Room Air Room Air 07/01/23 05:00 07/01/23 06:00 07/01/23 06:52 Temperature Temperature Source Pulse Rate 125 H 135 H 127 H Respiratory Rate 23 H 25 H Respiratory Effort Respiratory Depth Respiratory Pattern Blood Pressure 102/54 L Blood Pressure [BP] 91/75 106/59 L Blood Pressure Mean Blood Pressure Mean [BP] 80 74 Blood Pressure Source Blood Pressure Source [BP] Monitor Monitor Blood Pressure Position Blood Pressure Position [BP] Semi-Fowlers Semi-Fowlers Blood Pressure Location Blood Pressure Location [BP] Left Arm Left Arm Pulse Ox 98 96 Oxygen Delivery Method Room Air Room Air 07/01/23 07:00 07/01/23 08:00 07/01/23 08:30 Temperature 98.6 F Temperature Source Temporal Pulse Rate 122 H 118 H 118 H Respiratory Rate 11 L 25 H 22 H Respiratory Effort Respiratory Depth Respiratory Pattern Blood Pressure Blood Pressure [BP] 112/63 101/56 L 67/55 L Blood Pressure Mean Blood Pressure Mean [BP] 79 71 59 Blood Pressure Source Blood Pressure Source [BP] Monitor Monitor Monitor Blood Pressure Position Blood Pressure Position [BP] Semi-Fowlers Semi-Fowlers Semi-Fowlers Blood Pressure Location Blood Pressure Location [BP] Left Arm Left Forearm Left Forearm Pulse Ox 98 97 97 Oxygen Delivery Method Room Air Room Air Room Air 07/01/23 08:45 07/01/23 09:45 Temperature 97.2 F L Temperature Source Temporal Pulse Rate 132 H 119 H Respiratory Rate 22 H 14 Respiratory Effort Respiratory Depth Respiratory Pattern Blood Pressure 82/51 L Blood Pressure [BP] 84/49 L Blood Pressure Mean 61 Blood Pressure Mean [BP] 60 Blood Pressure Source Monitor Blood Pressure Source [BP] Monitor Blood Pressure Position Semi-Fowlers Blood Pressure Position [BP] Semi-Fowlers Blood Pressure Location Left Forearm Blood Pressure Location [BP] Left Forearm Pulse Ox 97 96 Oxygen Delivery Method Room Air Room Air Weight Weight: 55 kg Body Mass Index (BMI) 22.1 Physical Exam Narrative patient resting comfortably in bed [id number] No signs of acute distress Satting well on room air Overall patient's left lower extremity is globally edematous and larger compared to the right lower extremity however this does not appear acute. Patient states that she has pain in the hip and the low back. She is painful in the hip to logroll Painful to passive range of motion No pain to palpation of femur Limited flexion and internal/external rotation due to pain There is no erythema around the entire leg No ecchymosis over the entire leg Fluid collection of left lateral hip feels fluctuant and somewhat indurated. Limb is warm to touch, Sensation intact throughout entire lower extremity, including saphenous, sural, superficial and deep peroneal, and tibial distribution. DP/PT pulses bounding. Dorsiflexion plantarflexion 5/5 without pain Patient able to wiggle all toes without pain Calf nontender to palpation, no erythema, no edema. Negative Homans Const alert and oriented x3 General Appearance: comfortable Resp normal respiratory effort Effort and Inspection: able to speak in complete sentences Extremity Peripheral Pulses: Yes pulses 2+ throughout Lab / Micro Data 07/01/23 08:45 07/01/23 09:50 Labs: Laboratory Results - last 24 hr 06/30/23 20:05: WBC 15.1 H, RBC 2.59 L, Hgb 7.4 L, Hct 25.0 L, MCV 96.5, MCH 28.6, MCHC 29.6 L, RDW Std Deviation 56.6 H, RDW Coeff of Tk 17.2 H, Plt Count 695 H, MPV 10.3, Neut % (Auto) Not Reportable, Absolute Neuts (auto) 12.2 H, Absolute Lymphs (auto) 1.66, Total Counted 100, Neutrophils % (Manual) 75 H, Band Neutrophils % 6 H, Lymphocytes % (Manual) 11 L, Monocytes % (Manual) 4, Metamyelocytes % 2 H, Myelocytes % 1 H, Promyelocytes % 1 H, Diff Path Review December, ESR 32 H, PT 30.7 H, INR 2.9, Sodium 128 L, Potassium 6.0 H*, Chloride 94 L, Carbon Dioxide 22.0, Anion Gap 12, BUN 79 H, Creatinine 1.83 H, Estim Creat Clear Calc 21.01, Est GFR (MDRD) Af Amer 35 L, Est GFR (MDRD) Non-Af 29 L, BUN/Creatinine Ratio 43.2 H, Glucose 45 L, Lactic Acid 3.0 H*, Calcium 8.5, Total Creatine Kinase 282 H, C-React Prot Ext Range 153.00 H 06/30/23 23:25: Urine Color Yellow, Urine Clarity Clear, Urine pH 5.0, Ur Specific [place] 1.020, Urine Protein 100 H, Urine Glucose (UA) Normal, Urine Ketones 5 H, Urine Occult Blood 10 H, Urine Nitrite Negative, Urine Bilirubin 3 H, Urine Urobilinogen 4 H, Ur Leukocyte Esterase 500 H, Urine RBC 0-5 SEEN, Urine WBC 25-50 SEEN, Ur Squamous Epith Cells 0-5 SEEN, Amorphous Sediment 2+, Urine Bacteria 4+, Urine Mucus 0 SEEN 06/30/23 23:35: Sodium 130 L, Potassium 5.6 H, Chloride 98, Carbon Dioxide 21.0, Anion Gap 11, BUN 80 H, Creatinine 1.67 H, Estim Creat Clear Calc 23.02, Est GFR (MDRD) Af Amer 38 L, Est GFR (MDRD) Non-Af 32 L, BUN/Creatinine Ratio 47.9 H , Glucose 43 L*, Calcium 8.0 L 07/01/23 00:14: POC Glucose 31 L* 07/01/23 00:48: Lactic Acid 3.4 H* 07/01/23 01:52: POC Glucose 86 07/01/23 02:57: Lactic Acid 5.0 H* 07/01/23 03:26: WBC 16.6 H, RBC 2.42 L, Hgb 7.0 L, Hct 23.8 L, MCV 98.3, MCH 28.9, MCHC 29.4 L, RDW Std Deviation 58.6 H, RDW Coeff of Tk 18.0 H, Plt Count 639 H, MPV 10.0, Neut % (Auto) Not Reportable, Absolute Neuts (auto) 14.3 H, Absolute Lymphs (auto) 0.99, Total Counted 100, Neutrophils % (Manual) 84 H, Band Neutrophils % 2, Lymphocytes % (Manual) 6 L, Monocytes % (Manual) 3, Metamyelocytes % 3 H, Myelocytes % 2 H, Diff Path Review May foll, Platelet Estimate ADEQUATE, Polychromasia RARE, Hypochromasia 1+, Anisocytosis 1+, Microcytosis RARE, Macrocytosis RARE, Sodium 132 L, Potassium 5.5 H, Chloride 100, Carbon Dioxide 16.0 L, Anion Gap 16 H, BUN 76 H, Creatinine 1.56 H, Estim Creat Clear Calc 24.64, Est GFR (MDRD) Af Amer 42 L, Est GFR (MDRD) Non-Af 34 L, BUN/Creatinine Ratio 48.7 H, Glucose 72 L, Calcium 7.6 L, Phosphorus 4.5, Magnesium 2.3, Iron 36 L, TIBC 280, Iron Saturation 12.9 L, Ferritin 1050 H, Total Bilirubin 2.10 H, AST 166 H, ALT 40, Alkaline Phosphatase 218 H, Total Pr otein 6.0 L, Albumin 2.0 L, Globulin 4.0, Albumin/Globulin Ratio 0.5 L 07/01/23 03:41: POC Glucose 70 L 07/01/23 06:15: PT 39.8 H, INR 4.0 H* 07/01/23 07:07: Total Creatine Kinase 179 07/01/23 07:35: Blood Type AB POSITIVE, Antibody Screen NEGATIVE, Crossmatch See Detail 07/01/23 08:45: Hgb 7.0 L, Lactic Acid 3.7 H* 07/01/23 09:50: Sodium 131 L, Potassium 6.4 H*, Chloride 104, Carbon Dioxide 18.0 L, Anion Gap 9, BUN 65 H, Creatinine 1.23 H, Estim Creat Clear Calc 31.26, Est GFR (MDRD) Af Amer 55 L, Est GFR (MDRD) Non-Af 45 L, BUN/Creatinine Ratio 52.8 H, Glucose 157 H, Calcium 7.3 L Rhythm Strip Rhythm Strip: A-fib Rate: 124 Ectopy: None Radiology Impression Abdomen/Pelvis CT 06/30/23 21:56 IMPRESSION: 1. Bilateral perinephric stranding, new as compared to the prior CT. This may represent medical renal disease. No urinary tract stone and no hydronephrosis or hydroureter. 2. Cholelithiasis and gallbladder wall thickening. The gallbladder wall thickening may be secondary to edema from anasarca, however if there is a clinical concern for cholecystitis, recommend follow-up with right upper quadrant ultrasound. 3. Partial visualization of a large left hip effusion versus hematoma. Circumscribed fluid collection in the subcutaneous soft tissues lateral to the left hip slightly decreased in size as compared to the prior CT. Consider follow-up with MRI. 4. Small right pleural effusion. 5. Stable T12 compression fracture. Electronically Signed: Aman Bai DO at 23:03 EST , Lower Extremity CT 07/01/23 01:24 IMPRESSION: 1. Large hematoma in the left thigh, likely intramuscular within the lateral vastus lateralis muscle, with evidence of acute on chronic hemorrhage. Overall they hematoma appears increased in size as compared to 06/19/2023. The distalmost portion of the hematoma is not completely included in the [id number]. 2. Periprosthetic intertrochanteric fracture of the left femur. Electronically Signed: Aman Bai DO at 2:15 EST , Assessment & Plan Assessment/Plan (1) Periprosthetic fracture around internal prosthetic left hip joint: QUALIFIERS: Encounter type: initial encounter Qualified Code(s): M97.02XA - Periprosthetic fracture around internal prosthetic left hip joint, initial encounter PLAN: 1. Consult reviewed with Dr. Loyd and Dr. Weston 2. No acute orthopedic intervention at this time Due to stable hematoma and hematoma unlikely source of infection. At this point time urine is more likely an etiology and source of infection versus the hematoma or hip. 3. patient's hematoma is overall stable and she does not have worsening clinical symptoms such as erythema, edema or ecchymosis surrounding the hip 4. For the fracture will continue recommendations as previously consulted she is toe-touch weightbearing left lower extremity and no active abduction x6 weeks. #5 anticoagulation management per primary 6. Patient should follow-up with Dr. Weston in 1 to 2 weeks with repeat x-rays 7. Orthopedic will sign off at this time . (2) Hip hematoma, left:
[2023-07-01] MEDS: Lidocaine 5% Patch 1 PATCH TOPICAL (12:24)
--- NOTE | 2023-07-01 12:25 | PCM.OP.PRO ---
Procedure Report Date of Procedure: 07/01/23 PICC insertion attempt x1, unsuccessful. Attempt was made in right brachial vein. Blood return was obtained; however, was unable to thread the guidewire. The patient was becoming restless and yelling for me to let her up. Emotional support provided and patient was not due for any additional as needed medication. Therefore, attempt was discontinued. Nursing made aware.
[2023-07-01] MEDS: Insulin Lispro 10 UNIT in Syringe 0 ML 6 UNIT IV (12:36)
[2023-07-01] MEDS: Sodium Polystyrene Sulfonate 15 GM/60 ML UDC 30 GM PO (12:36)
[2023-07-01 13:04] LABS: Bedside Glucose 125 mg/dL (74-106)
--- NOTE | 2023-07-01 14:23 | PN.HOSP_ITS ---
Reason for Visit Reason for Visit: Diagnoses Sepsis, unspecified organism (07/01/23) Anemia, unspecified (07/01/23) Elevated white blood cell count, unspecified (07/01/23) Thrombocytosis, unspecified (07/01/23) Hypoglycemia, unspecified (07/01/23) Hypo-osmolality and hyponatremia (07/01/23) Hyperkalemia (07/01/23) Periprosthetic fracture around internal prosthetic left hip joint, initial encounter (07/01/23) Acute kidney failure, unspecified (07/01/23) Contusion of left hip, initial encounter (07/01/23) Subjective Subjective Patient admitted overnight to the ICU for severe sepsis. Seen at bedside this morning, multiple family members present. Patient was laying comfortably in bed, in no acute distress. Patient is chronically ill-appearing and fairly pale. Patient stated that she had mild to moderate right-sided low back and flank pain this morning, similar to admission. States her left hip is not painful at rest, does cause her discomfort with ambulation. She has not tried ambulating since getting up to the ICU. She currently denies any fevers or chills. Denies any pain or discomfort with urination. Denies any abdominal pain. No other acute pain or discomfort noted. No other acute concerns this time. Objective Data Objective Data Vital Signs: Vital Signs Temp Pulse Resp BP Pulse Ox O2 Del Method 99.4 F H 119 H 20 H 107/66 96 Room Air 07/01/23 14:00 07/01/23 14:00 07/01/23 14:00 07/01/23 14:00 07/01/23 14:00 07/01/23 14:00 Oxygen Delivery Method Room Air Weight: 55 kg Body Mass Index (BMI) 22.1 Intake & Output: Intake and Output for Last 24 Hours 06/29/23 06/30/23 07/01/23 23:59 23:59 23:59 Intake Total 500 / 500 4042.60 / 4042.60 Output Total 400 / 400 Balance 500 / 500 3642.60 / 3642.60 Lab / Micro Data 07/01/23 08:45 07/01/23 09:50 Labs: Laboratory Results - last 24 hr 06/30/23 20:05: WBC 15.1 H, RBC 2.59 L, Hgb 7.4 L, Hct 25.0 L, MCV 96.5, MCH 28.6, MCHC 29.6 L, RDW Std Deviation 56.6 H, RDW Coeff of Tk 17.2 H, Plt Count 695 H, MPV 10.3, Neut % (Auto) Not Reportable, Absolute Neuts (auto) 12.2 H, Absolute Lymphs (auto) 1.66, Total Counted 100, Neutrophils % (Manual) 75 H, Band Neutrophils % 6 H, Lymphocytes % (Manual) 11 L, Monocytes % (Manual) 4, Metamyelocytes % 2 H, Myelocytes % 1 H, Promyelocytes % 1 H, Diff Path Review December, ESR 32 H, PT 30.7 H, INR 2.9, Sodium 128 L, Potassium 6.0 H*, Chloride 94 L, Carbon Dioxide 22.0, Anion Gap 12, BUN 79 H, Creatinine 1.83 H, Estim Creat Clear Calc 21.01, Est GFR (MDRD) Af Amer 35 L, Est GFR (MDRD) Non-Af 29 L, BUN/Creatinine Ratio 43.2 H, Glucose 45 L, Lactic Acid 3.0 H*, Calcium 8.5, Total Creatine Kinase 282 H, C-React Prot Ext Range 153.00 H 06/30/23 23:25: Urine Color Yellow, Urine Clarity Clear, Urine pH 5.0, Ur Specific [place] 1.020, Urine Protein 100 H, Urine Glucose (UA) Normal, Urine Ketones 5 H, Urine Occult Blood 10 H, Urine Nitrite Negative, Urine Bilirubin 3 H, Urine Urobilinogen 4 H, Ur Leukocyte Esterase 500 H, Urine RBC 0-5 SEEN, Urine WBC 25-50 SEEN, Ur Squamous Epith Cells 0-5 SEEN, Amorphous Sediment 2+, Urine Bacteria 4+, Urine Mucus 0 SEEN 06/30/23 23:35: Sodium 130 L, Potassium 5.6 H, Chloride 98, Carbon Dioxide 21.0, Anion Gap 11, BUN 80 H, Creatinine 1.67 H, Estim Creat Clear Calc 23.02, Est GFR (MDRD) Af Amer 38 L, Est GFR (MDRD) Non-Af 32 L, BUN/Creatinine Ratio 47.9 H, Glucose 43 L*, Calcium 8.0 L 07/01/23 00:14: POC Glucose 31 L* 07/01/23 00:48: Lactic Acid 3.4 H* 07/01/23 01:52: POC Glucose 86 07/01/23 02:57: Lactic Acid 5.0 H* 07/01/23 03:26: WBC 16.6 H, RBC 2.42 L, Hgb 7.0 L, Hct 23.8 L, MCV 98.3, MCH 28.9, MCHC 29.4 L, RDW Std Deviation 58.6 H, RDW Coeff of Tk 18.0 H, Plt Count 639 H, MPV 10.0, Neut % (Auto) Not Reportable, Absolute Neuts (auto) 14.3 H, Absolute Lymphs (auto) 0.99, Total Counted 100, Neutrophils % (Manual) 84 H, Band Neutrophils % 2, Lymphocytes % (Manual) 6 L, Monocytes % (Manual) 3, Metamyelocytes % 3 H, Myelocytes % 2 H, Diff Path Review May foll, Platelet Estimate ADEQUATE, Polychromasia RARE, Hypochromasia 1+, Anisocytosis 1+, Micr ocytosis RARE, Macrocytosis RARE, Sodium 132 L, Potassium 5.5 H, Chloride 100, Carbon Dioxide 16.0 L, Anion Gap 16 H, BUN 76 H, Creatinine 1.56 H, Estim Creat Clear Calc 24.64, Est GFR (MDRD) Af Amer 42 L, Est GFR (MDRD) Non-Af 34 L, BUN/Creatinine Ratio 48.7 H, Glucose 72 L, Calcium 7.6 L, Phosphorus 4.5, Magnesium 2.3, Iron 36 L, TIBC 280, Iron Saturation 12.9 L, Ferritin 1050 H, Total Bilirubin 2.10 H, AST 166 H, ALT 40, Alkaline Phosphatase 218 H, Total Protein 6.0 L, Albumin 2.0 L, Globulin 4.0, Albumin/Globulin Ratio 0.5 L 07/01/23 03:41: POC Glucose 70 L 07/01/23 06:15: PT 39.8 H, INR 4.0 H* 07/01/23 07:07: Total Creatine Kinase 179 07/01/23 07:35: Blood Type AB POSITIVE, Antibody Screen NEGATIVE, Crossmatch See Detail 07/01/23 08:45: Hgb 7.0 L, Lactic Acid 3.7 H* 07/01/23 09:50: Sodium 131 L, Potassium 6.4 H*, Chloride 104, Carbon Dioxide 18.0 L, Anion Gap 9, BUN 65 H, Creatinine 1.23 H, Estim Creat Clear Calc 31.26, Est GFR (MDRD) Af Amer 55 L, Est GFR (MDRD) Non-Af 45 L, BUN/Creatinine Ratio 52.8 H, Glucose 157 H, Calcium 7.3 L 07/01/23 12:23: POC Glucose 125 H Radiography Diagnostic Testing: Radiology Impression Abdomen/Pelvis CT 06/30/23 21:56 IMPRESSION: 1. Bilateral perinephric stranding, new as compared to the prior CT. This may represent medical renal disease. No urinary tract stone and no hydronephrosis or hydroureter. 2. Cholelithiasis and gallbladder wall thickening. The gallbladder wall thickening may be secondary to edema from anasarca, however if there is a clinical concern for cholecystitis, recommend follow-up with right upper quadrant ultrasound. 3. Partial visualization of a large left hip effusion versus hematoma. Circumscribed fluid collection in the subcutaneous soft tissues lateral to the left hip slightly decreased in size as compared to the prior CT. Consider follow-up with MRI. 4. Small right pleural effusion. 5. Stable T12 compression fracture. Electronically Signed: Aman Bai DO at 23:03 EST , Lower Extremity CT 07/01/23 01:24 IMPRESSION: 1. Large hematoma in the left thigh, likely intramuscular within the lateral vastus lateralis muscle, with evidence of acute on chronic hemorrhage. Overall they hematoma appears increased in size as compared to 06/19/2023. The distalmost portion of the hematoma is not completely included in the [id number]. 2. Periprosthetic intertrochanteric fracture of the left femur. Electronically Signed: Aman Bai DO at 2:15 EST , Rhythm Strip Rhythm Strip: A-fib Rate: 124 Ectopy: None Physical Exam Const alert and no apparent distress Constitutional Narrative: Elderly female, chronic ill-appearing, pale, laying comfortably in bed, conversing normally, no acute distress. General Appearance: cooperative and comfortable HEENT normocephalic, head/scalp atraumatic, hearing grossly normal bilaterally, nasal mucous membranes and turbinates normal and moist oral mucous membranes Eyes PERRL, EOMs intact bilaterally and conjunctivae normal Neck full ROM, no lymphadenopathy and supple Lymph Lymphatic: no lymphadenopathy noted Chest inspection of chest normal Resp Resp Narrative: Satting well on room air, no increased work of breathing noted. Mildly decreased breath sounds in bilateral lung bases. Cardio no murmurs and peripheral pulses 2+ throughout Cardio Narrative: A-fib with RVR. GI GI Narrative: Abdomen soft, nondistended. Mildly tender to palpation in right side of abdomen around to right flank. No guarding noted. Back/Spine normal ROM Extremity normal to inspection Extremity Narrative: Left hip with no overt erythema, appears grossly normal on exam. Nontender to palpation. Skin no rashes or lesions noted Psych mental status grossly normal Assessment & Plan Assessment/Plan (1) Sepsis: PLAN: Plan Patient is a 73-year-old female who presented [facility] ED on 06/30/2023 with generalized weakness with falls at home, worsening left hip pain and worsening right-sided low back and flank pain. 1. Severe sepsis suspected secondary to UTI, lactic acidosis Patient met sepsis criteria on admission with new MURRAY, leukocytosis, tachycardia, tachypnea and elevated lactate. CT abdomen pelvis showed bilateral nephric stranding which is new compared to prior CT imaging. CT of the hip showed chronic hematoma unclear if change from previous. UA suggestive of infection. Patient fully resuscitated in ED with IV fluids at 30 cc/kg. ? [employer] Helper following. Continue broad-spectrum antibiotics with vancomycin and Zosyn. Blood cultures, urine culture pending. Orthopedics evaluated as noted below, no concern for infected left hip, signed off. Lactic acidosis downtrending, will continue every 6 hours checks through tomorrow morning to ensure continued downtrend. Treating anemia as noted below. Monitor BMP daily. 2. MURRAY, improving Creatinine 1.83 on admit, baseline creatinine appears to be around 0.3-0.6. Suspected prerenal MURRAY due to sepsis as noted above. Specific gravity of UA suggestive of volume depletion. Volume resuscitated in the ED as above. ? Creatinine improved to 1.23 on 07/01. Monitor BMP daily. Treat sepsis as noted above. 3. Acute on chronic anemia Hemoglobin 7.4 on admission. Patient was recently hospitalized at the end of May for a fall with periprosthetic hip fracture. Orthopedics followed as below, recommended nonoperative management. Patient was noted to have a left hip hematoma at that time as well. Patient hemoglobin during that admission was 12-14. However, post discharge she was noted to have hemoglobin drop from 12.4 on 06/19, to 9.3 on 06/21, to 7.3 on 06/23. ? Suspect acute hemoglobin drop was most likely due to bleeding into left hip causing left hip hematoma while on Coumadin for anticoagulation. Hemoglobin 7.0 on recheck on 07/01. Given hypotension as noted above, decision was made to transfuse 2 units packed red blood cells on 07/01. We will follow up post?transfusion hemoglobin. Holding warfarin due to supratherapeutic INR as noted below. Iron studies consistent with anemia of chronic disease. 4. Atrial fibrillation with RVR ? Known history of atrial fibrillation on Coumadin. Developed A-fib with RVR with heart rate to 140s on 07/01, suspected secondary to sepsis and anemia as noted above. Given 1 dose of digoxin during 250 mcg without improvement. Initiated on amiodarone drip on 07/01. Monitor closely. 5. Left hip hematoma, history of left total hip replacement in 10/2022 with periprosthetic hip fracture in 05/2023 treated with nonoperative management Recently hospitalized from 06/09 to 06/12 for a fall resulting in periprosthetic hip fracture of repair to the left hip. Orthopedics followed at that time, recommended nonoperative management. Was also noted on imaging to have a left hip hematoma, however blood counts remained stable at that time and orthopedics felt it would tamponade off on its own. ? Repeat CT hip on admission showed continued left hip hematoma. Orthopedics evaluated on 07/01, noted the patient's hematoma was overall stable and patient has no worsening clinical symptoms such as erythema, edema or ecchymosis surrounding the hip. No need for orthopedic intervention at this time. Ortho pedics signed off. For previous fracture, continue previous orthopedic recommendations of 2?touch weightbearing to left lower extremity. PT/OT/case management consulted. Pain control medications as needed. 6. History of mitral valve replacement with mechanical valve on Coumadin ? Therapeutic INR of 2.9 on admission. However, worsened to INR 4.0 on 07/01. Coumadin being held, also holding heparin drip for now given supratherapeutic INR. Will plan to start heparin drip once INR returns to therapeutic range. Low concern for significant active bleed, okay to continue anticoagulation at th is time. 7. Hyponatremia ? Suspected secondary to for p.o. intake recently. Sodium 130 on admit. Mildly improved to sodium 131 on 07/01 after IV fluid resuscitation for sepsis as noted above. Monitor daily BMP. 8. Thrombocytosis ? Presumed secondary to sepsis as noted above. Monitor. Chronic medical conditions: ? Uncontrolled type 2 diabetes: A1c of 13.6% on 06/15/2023. Was started on in sulin at that time. Hyperglycemia on admission with BG 42, improved to normal range with treatment. Continue sliding-scale insulin for now. Hold home scheduled insulin, restart as needed. Hold home metformin. Monitor closely. ? Hyperlipidemia: Continue home statin and colestipol. ? GERD: Continue home PPI. ? Vitamin D deficiency: Continue home vitamin D supplement. DVT prophylaxis: SCDs CODE STATUS: DNR CCA, DO NOT INTUBATE Expected disposition: TBD Total clinical time spent by myself addressing the patient's medical issues, reviewing all the data, and collaborating with patient's care team: 35 minutes. Charges/Coding Visit Charges Inpatient E&M: 18228 Subs Hosp L2
--- NOTE | 2023-07-01 15:40 | RAD_ITS ---
STUDY: X-RAY CHEST REASON FOR EXAM: Female, 73 years old. PICC line placement TECHNIQUE: Single frontal view of the chest. COMPARISON: February 22, 2020 FINDINGS: New PICC line on the left terminates in the superior vena cava. New endovascular stent valve. Sternotomy wires unchanged. The lungs are clear and expanded. There is no demonstrated pleural abnormality. Normal size heart. Normal mediastinum and rahat. Normal visualized pulmonary arteries. Normal visualized aortic arch and descending thoracic aorta. Normal visualized thoracic spine. DJD left shoulder. There is no demonstrated abnormality of the visualized soft tissue structures of the upper abdomen. RAD/Chest 1 View (Portable) IMPRESSION: New PICC line on the left in the SVC. New endovascular valve prosthesis. Electronically Signed: Gerhard Francis MD at 17:02 EST ,
--- NOTE | 2023-07-01 15:47 | CASEMGMT ---
SW sent more updates to [facility] via [employer]. Breana Caldwell FAMILY ASSISTANT FAMILY SUPPORT SPECIALIST
[2023-07-01 16:40] LABS: Bedside Glucose 85 mg/dL (74-106)
--- NOTE | 2023-07-01 17:56 | EKG12_ITS ---
Test Reason : Blood Pressure : / mmHG Vent. Rate : 096 BPM Atrial Rate : 000 BPM P-R Int : 000 ms QRS Dur : 146 ms QT Int : 378 ms P-R-T Axes : 000 -46 148 degrees QTc Int : 477 ms Atrial fibrillation with premature ventricular or aberrantly conducted complexes Left axis deviation Left bundle branch block Abnormal ECG No previous ECGs available Confirmed by APRYL RAMOS, EDWIN ([id number]), acquisition editor BESSY SPENCER ([id number]) on 07/13/2023 1:33:45 PM Referred By: Confirmed By:EDWIN PINK MD
[2023-07-01 18:19] LABS: Hematocrit 30.8 % (37-47); Hemoglobin 9.6 g/dL (12.0-15.0); Mean Corp Hgb Conc 31.2 g/dL (32-36); Mean Corpuscular Hgb 29.3 pg (27.0-32.0); Mean Corpuscular Volume 93.9 fL (81-99); Mean Platelet Vol. 10.2 fl (6.2-12.0); POSITIVE COUNT YES; POSITIVE DIFFERENTIAL YES; POSITIVE MORPHOLOGY YES; Platelet Count 520 K/mm3 (150-450); RBC Distribution Width CV 18.1 % (11.6-14.6); RBC Distribution Width SD 55.9 fl (35.1-43.9); Red Blood Count 3.28 M/mm3 (4.2-5.4); White Blood Count 13.3 K/mm3 (4.4-11.0)
[2023-07-01 18:42] LABS: Lactic Acid 1.4 mmol/L (0.4-1.9)
[2023-07-01 18:44] LABS: Platelet Estimate MOD INC (ADEQ); Red Cell Morphology N CHROM NORMAL (NORM C&C)
[2023-07-01 18:45] LABS: Anisocytosis RARE; Macrocytosis RARE
[2023-07-01 18:46] LABS: Anion Gap 9 (5-15); BUN 64 mg/dL (7-18); BUN/Creat Ratio 68.6 RATIO (10-20); Calcium,Total 7.9 mg/dL (8.5-10.1); Chloride 105 mmol/L (98-107); Creatinine, Serum 0.93 mg/dL (0.55-1.02); EST Glomerular Filtration Rate 62 mL/min (>60); Est Glom Filt Rate - Afr Amer 75 mL/min (>60); Estimated Creatinine Clearance 41.34 ml/min; Glucose 94 mg/dL (74-106); Potassium 3.4 mmol/L (3.5-5.1); Sodium Level 135 mmol/L (136-145)
[2023-07-01] MEDS: Potassium Chloride Oral Tablet 20 MEQ 40 MEQ PO (20:21)
[2023-07-01] MEDS: DiphenhydrAMINE 25 MG Capsule 50 MG PO (21:43)
[2023-07-01] MEDS: Mirtazapine 15 MG Tablet PO (21:43)
[2023-07-01] MEDS: Menthol/Lanolin/Calamine/Znox 113 GM Tube 1 APPLIC TOPICAL (21:44)
[2023-07-01] MEDS: Pantoprazole Sodium 40 MG Tablet PO (21:44)
[2023-07-01] MEDS: Atorvastatin Calcium 40 MG Tablet PO (21:44)
[2023-07-01 23:52] LABS: Magnesium 2.2 mg/dL (1.6-2.6); Phosphorus 2.4 mg/dL (2.5-4.9)
[2023-07-02] VITALS (13 sets, daily range): BP systolic 110–132; BP diastolic 55–75; PULSE 98–105; RESP 12–23; TEMP 36.6–37.3; O2SAT 93–98; BMI 23.3
[2023-07-02] MEDS: Dextrose 5%/0.9% NaCl 1,000 ML 100 ML IV (00:54)
[2023-07-02 01:14] LABS: Bedside Glucose 103 mg/dL (74-106)
[2023-07-02] MEDS: Acetaminophen 325 MG Tablet PO ×2 (03:00→14:07)
[2023-07-02] MEDS: 0.9% Saline Lock 10 ML Syringe IV (03:02)
[2023-07-02 03:12] LABS: Hematocrit 30.5 % (37-47); Hemoglobin 9.5 g/dL (12.0-15.0); Mean Corp Hgb Conc 31.1 g/dL (32-36); Mean Corpuscular Hgb 29.3 pg (27.0-32.0); Mean Corpuscular Volume 94.1 fL (81-99); POSITIVE COUNT YES; POSITIVE DIFFERENTIAL YES; POSITIVE MORPHOLOGY YES; Platelet Count 454 K/mm3 (150-450); RBC Distribution Width CV 18.8 % (11.6-14.6); RBC Distribution Width SD 57.6 fl (35.1-43.9); Red Blood Count 3.24 M/mm3 (4.2-5.4); White Blood Count 11.7 K/mm3 (4.4-11.0)
[2023-07-02 03:13] LABS: Differential Indicated MANUAL DIFF
[2023-07-02 03:22] LABS: International Normalized Ratio 2.5; Prothrombin Time (Protime)PT. 26.8 SECONDS (11.7-14.9)
--- NOTE | 2023-07-02 03:23 | NURSING ---
0300, pt calling out help. This RN to bedside. Pt states she is having pain. When asked where, pt states she feels like bugs are crawling on her calves. Assessed patients legs at this time. Assessment consistent w/ previous assessment at 0000. Mild to moderate pitting edema in LLE, as before, and leg mildly warm to touch, no new findings. Administered Tylenol to patient per EMAR and elevated LLE.
[2023-07-02 03:28] LABS: Anion Gap 8 (5-15); BUN 52 mg/dL (7-18); BUN/Creat Ratio 73.7 RATIO (10-20); Calcium,Total 7.5 mg/dL (8.5-10.1); Chloride 108 mmol/L (98-107); Creatinine, Serum 0.71 mg/dL (0.55-1.02); EST Glomerular Filtration Rate 86 mL/min (>60); Est Glom Filt Rate - Afr Amer 104 mL/min (>60); Estimated Creatinine Clearance 38.44 ml/min; Glucose 148 mg/dL (74-106); Potassium 3.6 mmol/L (3.5-5.1); Sodium Level 138 mmol/L (136-145)
[2023-07-02 03:56] LABS: Eosinophil 1 % (0-5); Lymphocyte 2 % (19-41); Metamyelocyte 2 % (0-1); Monocyte 4 % (0-10); Myelocyte 2 % (0-0); Neutrophil # 10.39 X10^3/uL (2.7-7.7); Neutrophil-Band 2 % (0-5); Neutrophil-Segmented 87 % (47-70); Nucleated Red Bld Cells,Manual 1 % (0-5); Platelet Estimate ADEQUATE (ADEQ); Polychromasia RARE; Red Cell Morphology N CYTIC NORMAL (NORM C&C); Total Cells Counted 100 (MANUAL DIFF)
[2023-07-02 03:57] LABS: Absolute Lymphocyte Count 0.23 X10^3/uL (0.83-4.51); Absolute Neutrophil Count 10.4 X10^3/uL (2.0-7.7); Lymphocyte # 0.23 X10^3/ul (0.83-4.51)
[2023-07-02] MEDS: Vancomycin HCl 750 MG in 0.9% Normal Saline (250mL Bag) 250 ML 250 MG IV (03:59)
[2023-07-02] MEDS: oxyCODONE 5 MG Tablet PO ×2 (04:01→14:07)
[2023-07-02] MEDS: Piperacil/Tazobactam 3.375 GM in 0.9% Normal Saline (50mL MB+) 50 ML IV ×3 (06:20→22:37)
[2023-07-02] MEDS: Insulin Lispro 100 UNIT/ML INSULN.PEN SC ×3 (06:26→17:25)
[2023-07-02 06:44] LABS: Bedside Glucose 161 mg/dL (74-106)
--- NOTE | 2023-07-02 07:37 | PN.CC_ITS ---
Assessment & Plan Assessment/Plan (1) Hip hematoma, left: (2) Sepsis: PLAN: Plan RECOMMENDATIONS: 1. Continue broad-spectrum antimicrobials, pending finalized culture results. 2. Continue to monitor INR daily. Start heparin infusion once INR is less than 2.5 with plans to bridge to Coumadin. 3. Okay to advance diet, given no plans for surgical intervention. 4. Continue current pain control regimen. 5. Encourage incentive spirometer use and mobilize patient as tolerated. 6. The patient is medically stable for transfer out of the intensive care unit. IMPRESSIONS: 1. Sepsis The patient presented with sepsis due to probable urinary tract source of infection +/- infected left hip hematoma with acute sepsis related organ dysfunction as evidenced by lactic acidemia. The patient did receive supplemental IV fluid hydration and has remained hemodynamically stable, without the need for vasopressor support. Plan to continue empiric broad-spectrum antimicrobials, pending finalized culture results. The patient was evaluated by orthopedic surgery, without any plans for any form of surgical intervention. 2. Possible left hip hematoma The patient underwent BORIS in October and subsequently developed a hematoma and periprosthetic fracture, which has been managed nonsurgically. Unfortunately, the patient has a need to remain on systemic anticoagulation due to her underlying mechanical valve. Therefore, we are unable to completely discontinue her anticoagulation. Recommend starting a heparin infusion once INR is less than 2.5 and transitioning back to Coumadin. 3. Anemia Likely secondary to slow loss from hematoma. The patient did receive 2 units of packed red blood cells with subsequent improvement in her hemoglobin. 4. Atrial fibrillation with RVR/aortic valve stenosis/mechanical mitral valve Continue current medical management and initiate heparin infusion once INR is less than 2.5, with plans to transition back to Coumadin, per outpatient regimen. 5. History of hyperlipidemia/GERD/diabetes mellitus Complicates care, management, recovery and prognosis. Continue sliding scale insulin coverage. Physical therapy to work with the patient. This note was generated with [employer] dictation software. It may contain incorrect words, spelling, and punctuation that were not noted in checking the note before signing. Subjective Subjective The patient was seen and examined at the bedside this morning. Events from the last 24 hours have been reviewed. The patient is currently afebrile, hemodynamically stable and maintaining appropriate oxygen saturations on room air. The patient has never required vasopressor support. She does report feeling tired this morning. Orthopedic surgery did not feel that there was any indication for any form of surgical intervention. Hemoglobin this morning is improved to 9.5 g/dL. INR was noted to be 2.5. Objective Data Objective Data The patient's most recent lab work, culture data and imaging studies have all been personally reviewed. Blood and urine cultures are pending. Vital Signs: Vital Signs Temp Pulse Resp BP Pulse Ox O2 Del Method 98.3 F 102 H 12 120/71 93 Room Air 07/02/23 06:00 07/02/23 06:00 07/02/23 06:00 07/02/23 06:00 07/02/23 06:00 07/02/23 06:00 Oxygen Delivery Method Room Air Weight: 127 lb 10.362 oz Body Mass Index (BMI) 23.3 Intake & Output: Intake and Output for Last 24 Hours 06/30/23 07/01/23 07/02/23 23:59 23:59 23:59 Intake Total 500 / 500 4426.93 / 4426.93 1188.33 / 1188.33 Output Total 2300 / 2450 425 / 425 Balance 500 / 500 2126.93 / 1976.93 763.33 / 763.33 Lab / Micro Data Attestation: I reviewed the patient's lab results. 07/02/23 03:06 07/02/23 03:06 Labs: Laboratory Results - last 24 hr 07/01/23 07:07: Total Creatine Kinase 179 07/01/23 07:35: Blood Type AB POSITIVE, Antibody Screen NEGATIVE, Crossmatch See Detail 07/01/23 08:45: Hgb 7.0 L, Lactic Acid 3.7 H* 07/01/23 09:50: Sodium 131 L, Potassium 6.4 H*, Chloride 104, Carbon Dioxide 18.0 L, Anion Gap 9, BUN 65 H, Creatinine 1.23 H, Estim Creat Clear Calc 31.26, Est GFR (MDRD) Af Amer 55 L, Est GFR (MDRD) Non-Af 45 L, BUN/Creatinine Ratio 52.8 H, Glucose 157 H, Calcium 7.3 L 07/01/23 12:23: POC Glucose 125 H 07/01/23 16:21: POC Glucose 85 07/01/23 18:00: WBC 13.3 H, RBC 3.28 L, Hgb 9.6 L, Hct 30.8 L, MCV 93.9, MCH 2 9.3, MCHC 31.2 L D, RDW Std Deviation 55.9 H, RDW Coeff of Tk 18.1 H, Plt Count 520 H, MPV 10.2, Immature Gran % (Auto) 6.000 H, Neut % (Auto) 84.4 H, Lymph % (Auto) 2.1 L, [place] % (Auto) 6.8, Eos % (Auto) 0.2, Baso % (Auto) 0.5, Absolute Neuts (auto) 11.3 H, Absolute Lymphs (auto) 0.28 L, Nucleated RBC % 0.4, Differential Comment SEE COMMENT, Platelet Estimate MOD INC, RBC Morphology N CHROM, Anisocytosis RARE, Macrocytosis RARE, Sodium 135 L, Potassium 3.4 L, Chloride 105, Carbon Dioxide 21.0, Anion Gap 9, BUN 64 H, Creatinine 0.93, Estim Creat Clear Calc 41.34, Est GFR (MDRD) Af Amer 75, Est GFR (MDRD) Non-Af 62, BUN/Creatinine Ratio 68.6 H, Glucose 94, Lactic Acid 1.4, Calcium 7.9 L 07/01/23 23:18: Phosphorus 2.4 L, Magnesium 2.2 07/02/23 00:27: POC Glucose 103 07/02/23 03:06: WBC 11.7 H, RBC 3.24 L, Hgb 9.5 L, Hct 30.5 L, MCV 94.1, MCH 29.3, MCHC 31.1 L, RDW Std Deviation 57.6 H, RDW Coeff of Tk 18.8 H, Plt Count 454 H, MPV 10.0, Neut % (Auto) Not Reportable, Absolute Neuts (auto) 10.4 H, Absolute Lymphs (auto) 0.23 L, Total Counted 100, Neutrophils % (Manual) 87 H, Band Neutrophils % 2, Lymphocytes % (Manual) 2 L, Monocytes % (Manual) 4, Eosinophils % (Manual) 1, Metamyelocytes % 2 H, Myelocytes % 2 H, Nucleated RBCs/100 WBC 1, Diff Path Review May foll, Platelet Estimate ADEQUATE, RBC Morphology N CYTIC, Polychromasia RARE, PT 26.8 H, INR 2.5, Sodium 138, Potassium 3.6, Chloride 108 H, Carbon Dioxide 22.0, Anion Gap 8, BUN 52 H, Creatinine 0.71, Estim Creat Clear Calc 38.44, Est GFR (MDRD) Af Amer 104, Est GFR (MDRD) Non-Af 86, BUN/Creatinine Ratio 73.7 H, Glucose 148 H, Calcium 7.5 L 07/02/23 06:20: POC Glucose 161 H Micro: Microbiology 07/01/23 15:05 Stool Stool Occult Blood (JUDY) - Final Radiography Diagnostic Testing: Radiology Impression Chest X-Ray 07/01/23 15:40 IMPRESSION: New PICC line on the left in the SVC. New endovascular valve prosthesis. Electronically Signed: Gerhard Francis MD at 17:02 EST , Rhythm Strip Rhythm Strip: A-fib Rate: 124 Ectopy: None Physical Exam Const alert and no apparent distress General Appearance: cooperative HEENT normocephalic and head/scalp atraumatic Eyes PERRL, EOMs intact bilaterally and conjunctivae normal Neck supple General: trachea midline Chest inspection of chest normal Resp normal respiratory effort Auscultation: Negative for rales, rhonchi or wheezes Cardio S1 normal heart sound and S2 normal heart sound Cardio Narrative: + Click Rhythm: abnormal rhythm Heart Sounds: murmur GI normal to inspection, nondistended, normoactive bowel sounds Extremity no clubbing, cyanosis or edema Extremity Narrative: Tense skin over left hip without any ecchymoses or overlying induration/erythema Skin no rashes or lesions noted Neuro CN's II-XII intact bilaterally and no focal motor deficits Psych Mood & Affect: flat affect Charges/Coding Visit Charges Inpatient E&M: 72435 Subs Hosp L3
--- NOTE | 2023-07-02 08:20 | CASEMGMT ---
Social Work [facility] DAVIDSON Schumacher
[2023-07-02] MEDS: Gemfibrozil 600 MG Tablet PO ×2 (10:12→17:27)
[2023-07-02] MEDS: Colestipol 1 GM TABLET PO (10:12)
[2023-07-02] MEDS: Cholecalciferol (VIT D3) 25 MCG TABLET (1,000 UNITS) 50 MCG PO (10:12)
[2023-07-02] MEDS: Pantoprazole Sodium 40 MG Tablet PO ×2 (10:13→22:43)
[2023-07-02] MEDS: Lidocaine 5% Patch 1 PATCH TOPICAL (10:13)
[2023-07-02] MEDS: Glucerna Shake 120 ML LIQUID PO ×4 (10:20→22:42)
--- NOTE | 2023-07-02 11:53 | CASEMGMT ---
Social Work SW sent updates to [facility] via [employer] and asked them to start precert. As per physician, if we get precert pt would be able to go on the weekend back to [facility]. DAVIDSON Schumacher
[2023-07-02 12:20] LABS: Bedside Glucose 313 mg/dL (74-106)
--- NOTE | 2023-07-02 13:05 | PN.HOSP_ITS ---
Reason for Visit Reason for Visit: Diagnoses Sepsis, unspecified organism (07/01/23) Anemia, unspecified (07/01/23) Elevated white blood cell count, unspecified (07/01/23) Thrombocytosis, unspecified (07/01/23) Hypoglycemia, unspecified (07/01/23) Hypo-osmolality and hyponatremia (07/01/23) Hyperkalemia (07/01/23) Periprosthetic fracture around internal prosthetic left hip joint, initial encounter (07/01/23) Acute kidney failure, unspecified (07/01/23) Contusion of left hip, initial encounter (07/01/23) Subjective Subjective No acute events overnight. Patient seen at bedside this morning. Laying comfortably in bed, conversing normally, no acute distress. Patient states that her low back pain is improved this morning. Has been tolerating the Christiansen catheter without issue. Denies any chest pain, shortness of breath, fevers or chills. Denies any left hip pain or discomfort this morning. Has not been out of bed yet this morning. He is feeling more hungry this morning and hoping to eat soon. No other acute concerns this morning. Objective Data Objective Data Vital Signs: Vital Signs Temp Pulse Resp BP Pulse Ox O2 Del Method 98.9 F 102 H 20 H 122/75 H 97 Room Air 07/02/23 10:00 07/02/23 10:00 07/02/23 10:00 07/02/23 10:00 07/02/23 10:00 07/02/23 10:00 Oxygen Delivery Method Room Air Weight: 57.9 kg Body Mass Index (BMI) 23.3 Intake & Output: Intake and Output for Last 24 Hours 06/30/23 07/01/23 07/02/23 23:59 23:59 23:59 Intake Total 500 / 500 4426.93 / 4426.93 2306.66 / 2306.66 Output Total 2300 / 2450 625 / 625 Balance 500 / 500 2126.93 / 1976.93 1681.66 / 1681.66 Lab / Micro Data 07/02/23 03:06 07/02/23 03:06 Labs: Laboratory Results - last 24 hr 07/01/23 07:35: Crossmatch See Detail 07/01/23 16:21: POC Glucose 85 07/01/23 18:00: WBC 13.3 H, RBC 3.28 L, Hgb 9.6 L, Hct 30.8 L, MCV 93.9, MCH 29.3, MCHC 31.2 L D, RDW Std Deviation 55.9 H, RDW Coeff of Tk 18.1 H, Plt Count 520 H, MPV 10.2, Immature Gran % (Auto) 6.000 H, Neut % (Auto) 84.4 H, L ymph % (Auto) 2.1 L, [place] % (Auto) 6.8, Eos % (Auto) 0.2, Baso % (Auto) 0.5, Absolute Neuts (auto) 11.3 H, Absolute Lymphs (auto) 0.28 L, Nucleated RBC % 0.4, Differential Comment SEE COMMENT, Platelet Estimate MOD INC, RBC Morphology N CHROM, Anisocytosis RARE, Macrocytosis RARE, Sodium 135 L, Potassium 3.4 L, Chloride 105, Carbon Dioxide 21.0, Anion Gap 9, BUN 64 H, Creatinine 0.93, Estim Creat Clear Calc 41.34, Est GFR (MDRD) Af Amer 75, Est GFR (MDRD) Non-Af 62, BUN/Creatinine Ratio 68.6 H, Glucose 94, Lactic Acid 1.4, Calcium 7.9 L 07/01/23 23:18: Phosphorus 2.4 L, Magnesium 2.2 07/02/23 00:27: POC Glucose 103 07/02/23 03:06: WBC 11.7 H, RBC 3.24 L, Hgb 9.5 L, Hct 30.5 L, MCV 94.1, MCH 29.3, MCHC 31.1 L, RDW Std Deviation 57.6 H, RDW Coeff of Tk 18.8 H, Plt Count 454 H, MPV 10.0, Neut % (Auto) Not Reportable, Absolute Neuts (auto) 10.4 H, Absolute Lymphs (auto) 0.23 L, Total Counted 100, Neutrophils % (Manual) 87 H, Band Neutrophils % 2, Lymphocytes % (Manual) 2 L, Monocytes % (Manual) 4, Eosinophils % (Manual) 1, Metamyelocytes % 2 H, Myelocytes % 2 H, Nucleated RBCs/100 WBC 1, Diff Path Review May , Platelet Estimate ADEQUATE, RBC Morphology N CYTIC, Polychromasia RARE, PT 26.8 H, INR 2.5, Sodium 138, Potassium 3.6, Chloride 108 H, Carbon Dioxide 22.0, Anion Gap 8, BUN 52 H, Creatinine 0.71, Estim Creat Clear Calc 38.44, Est GFR (MDRD) Af Amer 104, Est GFR (MDRD) Non-Af 86, BUN/Creatinine Ratio 73.7 H, Glucose 148 H, Calcium 7.5 L 07/02/23 06:20: POC Glucose 161 H 07/02/23 12:02: POC Glucose 313 H Micro: Microbiology 06/30/23 23:25 Urine Catheter - Catheter Urine Culture - Preliminary Presumptive E. coli 07/01/23 15:05 Stool Stool Occult Blood (JUDY) - Final Radiography Diagnostic Testing: Radiology Impression Chest X-Ray 07/01/23 15:40 IMPRESSION: New PICC line on the left in the SVC. New endovascular valve prosthesis. Electronically Signed: Gerhard Francis MD at 17:02 EST , Rhythm Strip Rhythm Strip: A-fib Rate: 124 Ectopy: None Physical Exam Const alert and no apparent distress Constitutional Narrative: Elderly female, chronic ill-appearing, pale, laying comfortably in bed, conversing normally, no acute distress. General Appearance: cooperative and comfortable HEENT normocephalic, head/scalp atraumatic, hearing grossly normal bilaterally, nasal mucous membranes and turbinates normal and moist oral mucous membranes Eyes PERRL, EOMs intact bilaterally and conjunctivae normal Neck full ROM, no lymphadenopathy and supple Lymph Lymphatic: no lymphadenopathy noted Chest inspection of chest normal Resp Resp Narrative: Satting well on room air, no increased work of breathing noted. Mildly decreased breath sounds in bilateral lung bases. Cardio no murmurs and peripheral pulses 2+ throughout Cardio Narrative: A-fib, rate controlled. GI GI Narrative: Abdomen soft, nondistended. Tenderness in right abdominal/flank region improved. Back/Spine normal ROM Extremity normal to inspection Extremity Narrative: Left hip with no overt erythema, appears grossly normal on exam. Nontender to palpation. Skin no rashes or lesions noted Psych mental status grossly normal Assessment & Plan Assessment/Plan (1) Sepsis: PLAN: Plan Patient is a 73-year-old female who presented [facility] ED on 06/30/2023 with generalized weakness with falls at home, worsening left hip pain and worsening right-sided low back and flank pain. 1. Severe sepsis suspected secondary to UTI, improving; lactic acidosis, resolved Patient met sepsis criteria on admission with new MURRAY, leukocytosis, tachycardia, tachypnea and elevated lactate. CT abdomen pelvis showed bilateral nephric stranding which is new compared to prior CT imaging. CT of the hip showed chronic hematoma unclear if change from previous. UA suggestive of infection. Patient fully resuscitated in ED with IV fluids at 30 cc/kg. Never required pressors. Urine culture growing presumptive E. coli, sensitivities pending. Blood cultures pending. Notably, orthopedics evaluated on admission as noted below, no concern for infected left hip, signed off. ? [employer] following. Stable for transfer to the general medical floor. Continue broad-spectrum antibiotics with vancomycin and Zosyn, likely plan to de-escalate tomorrow pending culture data. Lactic acidosis resolved on 07/01. 2. MURRAY, resolved Creatinine 1.83 on admit, baseline creatinine appears to be around 0.3-0.6. Suspected prerenal MURRAY due to sepsis as noted above. Specific gravity of UA suggestive of volume depletion. Volume resuscitated in the ED as above. ? Creatinine improved to 0.71 on 07/01. Continue to monitor BMP daily for now. Treat sepsis as noted above. 3. Acute on chronic anemia Hemoglobin 7.4 on admission. Patient was recently hospitalized at the end of May for a fall with periprosthetic hip fracture. Orthopedics followed as below, recommended nonoperative management. Patient was noted to have a left hip hematoma at that time as well. Patient hemoglobin during that admission was 12-14. However, post discharge she was noted to have hemoglobin drop from 12.4 on 06/19, to 9.3 on 06/21, to 7.3 on 06/23. Suspect acute hemoglobin drop was most likely due to bleeding into left hip causing left hip hematoma while on Coumadin for anticoagulation. S/p transfusion of 2 units of packed red blood cells on 07/01, repeat hemoglobin 9.6. Notably, iron studies consistent with anemia of chronic disease. ? Continue to monitor CBC daily. Resumed warfarin on 07/02 as noted below. 4. Atrial fibrillation with RVR, improving Known history of atrial fibrillation on Coumadin. Developed A-fib with RVR with heart rate to 140s on 07/01, suspected secondary to sepsis and anemia as noted above. Given 1 dose of digoxin during 250 mcg without improvement. Given 1 dose of amiodarone bolus on 07/01 with improvement in rate. ? Heart rate stabilized with treatment of infection as noted above, not on rate control or antiarrhythmic therapy at this point. Monitor telemetry. Continue w arfarin. 5. Left hip hematoma, history of left total hip replacement in 10/2022 with periprosthetic hip fracture in 05/2023 treated with nonoperative management Recently hospitalized from 06/09 to 06/12 for a fall resulting in periprosthetic hip fracture of repair to the left hip. Orthopedics followed at that time, recommended nonoperative management. Was also noted on imaging to have a left hip hematoma, however blood counts remained stable at that time and orthopedics felt it would tamponade off on its own. ? Repeat CT hip on admission showed continued left hip hematoma. Orthopedics ev aluated on 07/01, noted the patient's hematoma was overall stable and patient has no worsening clinical symptoms such as erythema, edema or ecchymosis surrounding the hip. No need for orthopedic intervention at this time. Orthopedics signed off. For previous fracture, continue previous orthopedic recommendations of 2?touch weightbearing to left lower extremity. PT/OT/case management consulted. Pain control medications as needed. 6. History of mitral valve replacement with mechanical valve on Coumadin Therapeutic INR of 2.9 on admission. However, worsened to INR 4.0 on 07/01, Coumadin held. ? INR 2.5 on 07/02. Will restart home warfarin given no plans for intervention at this time. Monitor INR daily. 7. Hyponatremia, resolved ? Suspected secondary to for p.o. intake recently. Sodium 130 on admit. Resolved on 07/02. Monitor BMP. 8. Thrombocytosis ? Presumed secondary to sepsis as noted above. Monitor. 9. Debility ? Chronic debility in setting of previous of fracture in October requiring repair, followed by recurrent fracture in late May treated with nonoperative m anagement as noted above. PT/OT/case management following. Chronic medical conditions: ? Uncontrolled type 2 diabetes: A1c of 13.6% on 06/15/2023. Was started on insulin at that time. Hyperglycemia on admission with BG 42, improved to normal range with treatment. Continue sliding-scale insulin for now. Hold home scheduled insulin, restart as needed. Hold home metformin. Monitor closely. ? Hyperlipidemia: Continue home statin and colestipol. ? GERD: Continue home PPI. ? Vitamin D deficiency: Continue home vitamin D supplement. DVT prophylaxis: Warfarin CODE STATUS: DNR CCA, DO NOT INTUBATE Expected disposition: TBD Total clinical time spent by myself addressing the patient's medical issues, reviewing all the data, and collaborating with patient's care team: 35 minutes. Charges/Coding Visit Charges Inpatient E&M: 07306 Subs Hosp L2
[2023-07-02 15:12] LABS: Differential Indicated MANUAL DIFF
[2023-07-02 15:16] LABS: Absolute Lymphocyte Count 0.27 X10^3/uL (0.83-4.51); Absolute Neutrophil Count 12.3 X10^3/uL (2.0-7.7); Lymphocyte 2 % (19-41); Monocyte 3 % (0-10); Myelocyte 3 % (0-0); Neutrophil-Band 2 % (0-5); Neutrophil-Segmented 90 % (47-70); Total Cells Counted 100 (MANUAL DIFF)
[2023-07-02 17:47] LABS: Bedside Glucose 321 mg/dL (74-106)
[2023-07-02] MEDS: Mirtazapine 15 MG Tablet PO (22:41)
[2023-07-02] MEDS: Atorvastatin Calcium 40 MG Tablet PO (22:42)
[2023-07-02] MEDS: DiphenhydrAMINE 25 MG Capsule 50 MG PO (22:42)
[2023-07-03] MEDS: oxyCODONE 5 MG Tablet PO ×2 (01:18→11:06)
[2023-07-03 03:27] VITALS: BP 127/83; PULSE 82; RESP 16; TEMP 36.6; O2SAT 97
[2023-07-03 03:51] VITALS: BMI 22.8
[2023-07-03 05:18] LABS: Hematocrit 33.7 % (37-47); Hemoglobin 10.3 g/dL (12.0-15.0); Mean Corp Hgb Conc 30.6 g/dL (32-36); Mean Corpuscular Volume 94.9 fL (81-99); Mean Platelet Vol. 9.8 fl (6.2-12.0); Platelet Count 426 K/mm3 (150-450); RBC Distribution Width CV 19.5 % (11.6-14.6); RBC Distribution Width SD 60.8 fl (35.1-43.9); Red Blood Count 3.55 M/mm3 (4.2-5.4); White Blood Count 8.4 K/mm3 (4.4-11.0)
[2023-07-03 05:27] LABS: International Normalized Ratio 1.6; Prothrombin Time (Protime)PT. 19.4 SECONDS (11.7-14.9)
[2023-07-03 05:36] LABS: Vancomycin, Trough Level 8.2 ug/mL (5.0-15.0)
[2023-07-03 05:38] LABS: AST(SGOT) 789 U/L (15-37); Alanine Aminotransfer ALT/SGPT 289 U/L (13-56); Alkaline Phosphatase 249 U/L (45-117); Anion Gap 7 (5-15); BUN 41 mg/dL (7-18); BUN/Creat Ratio 63.8 RATIO (10-20); Bilirubin, Direct 1.38 mg/dL (0.00-0.30); Calcium,Total 7.9 mg/dL (8.5-10.1); Chloride 107 mmol/L (98-107); Creatinine, Serum 0.64 mg/dL (0.55-1.02); EST Glomerular Filtration Rate 96 mL/min (>60); Est Glom Filt Rate - Afr Amer 116 mL/min (>60); Estimated Creatinine Clearance 38.44 ml/min; Globulin 3.8 g/dL (2.2-4.2); Glucose 319 mg/dL (74-106); Potassium 3.9 mmol/L (3.5-5.1); Protein, Total 5.8 g/dL (6.4-8.2); Sodium Level 135 mmol/L (136-145)
--- NOTE | 2023-07-03 05:48 | PCM.RX.CS ---
Consult Antibiotic Management Pharmacy has been consulted to manage selected antiobiotic: Vancomycin Type of Intervention Type of Consult: Follow-up Labs Labs: Sodium 135 mmol/L (136-145) L 07/03/23 05:12 Potassium 3.9 mmol/L (3.5-5.1) 07/03/23 05:12 Chloride 107 mmol/L (98-107) 07/03/23 05:12 Carbon Dioxide 21.0 mmol/L (21.0-32.0) 07/03/23 05:12 Anion Gap 7 (5-15) 07/03/23 05:12 BUN 41 mg/dL (7-18) H 07/03/23 05:12 Creatinine 0.64 mg/dL (0.55-1.02) 07/03/23 05:12 Est GFR (MDRD) Af Amer 116 mL/min (>60) 07/03/23 05:12 Est GFR (MDRD) Non-Af 96 mL/min (>60) 07/03/23 05:12 BUN/Creatinine Ratio 63.8 RATIO (10-20) H 07/03/23 05:12 Glucose 319 mg/dL (74-106) H 07/03/23 05:12 Vancomycin Trough 8.2 ug/mL (5.0-15.0) 07/03/23 05:12 Microbiology Microbiology: Microbiology 06/30/23 23:25 Urine Catheter - Catheter Urine Culture - Preliminary Presumptive E. coli 07/01/23 15:05 Stool Stool Occult Blood (JUDY) - Final Estimated Creatinine Clearance Estimated Creatinine Clearance: 55 Pharmacy Plan for Drug Dosing Pharmacy Plan for Drug Dosing: Pharmacy Service will continue to monitor and adjust dosing as required. TROUGH 8.2 @ 25 HOURS. CHANGE TO 500MG Q12H AND FOLLOW UP TROUGH PRIOR TO 4TH DOSE Follow-Up Labs Follow-Up Labs: Trough: Vancomycin Date/Time Labs Ordered Labs to be done on [date and time ordered]: 07/04 @ 4204
[2023-07-03] MEDS: Vancomycin IV 500 MG/100 ML BAG 100 MG IV (05:59)
[2023-07-03] MEDS: Piperacil/Tazobactam 3.375 GM in 0.9% Normal Saline (50mL MB+) 50 ML IV (06:55)
[2023-07-03] MEDS: 0.9% Saline Lock 10 ML Syringe IV (07:10)
[2023-07-03] MEDS: Insulin Lispro 100 UNIT/ML INSULN.PEN SC ×3 (07:14→16:58)
[2023-07-03] MEDS: Gemfibrozil 600 MG Tablet PO ×2 (07:15→16:55)
[2023-07-03] MEDS: Vancomycin Trough/Random Due 1 LAB MC (07:16)
[2023-07-03 07:37] LABS: Bedside Glucose 290 mg/dL (74-106)
[2023-07-03] MEDS: HEPARIN/D5w 25,000 UNITS 25,000 UNITS/250 ML IV.SOLN. 8 UNITS CONT INF (08:13)
[2023-07-03] MEDS: Heparin Injection (Vial) 5,000 UNIT/ML VIAL 4000 UNIT IV (08:13)
[2023-07-03 08:15] VITALS: BP 137/76; PULSE 90; RESP 14; TEMP 36.8; O2SAT 96
[2023-07-03] MEDS: Colestipol 1 GM TABLET PO (08:16)
[2023-07-03] MEDS: Lidocaine 5% Patch 1 PATCH TOPICAL (08:16)
[2023-07-03] MEDS: Glucerna Shake 120 ML LIQUID PO ×4 (08:16→21:00)
[2023-07-03] MEDS: Pantoprazole Sodium 40 MG Tablet PO ×2 (08:17→20:59)
[2023-07-03] MEDS: Cholecalciferol (VIT D3) 25 MCG TABLET (1,000 UNITS) 50 MCG PO (08:17)
[2023-07-03] MEDS: Polyethylene Glycol 3350 17 GM PACKET PO (08:17)
[2023-07-03 08:20] VITALS: O2SAT 95
[2023-07-03 08:59] LABS: Prothrombin Time (Protime)PT. 22.5 SECONDS (11.7-14.9)
[2023-07-03 09:00] LABS: Partial Thromboplast Time 36.2 Seconds (24.1-36.2)
--- NOTE | 2023-07-03 10:50 | CASEMGMT ---
Social Work SW sent updates to [facility], asked them to call the floor should they get precert as pt may be ready for discharge tomorrow. Green sheet is on the chart. DAVIDSON Schumacher
[2023-07-03 11:41] LABS: Bedside Glucose 352 mg/dL (74-106)
[2023-07-03] MEDS: Ceftriaxone 1 GM/50 ML BAG IV (13:45)
--- NOTE | 2023-07-03 14:10 | PN.HOSP_ITS ---
Reason for Visit Reason for Visit: Diagnoses Sepsis, unspecified organism (07/01/23) Anemia, unspecified (07/01/23) Elevated white blood cell count, unspecified (07/01/23) Thrombocytosis, unspecified (07/01/23) Hypoglycemia, unspecified (07/01/23) Hypo-osmolality and hyponatremia (07/01/23) Hyperkalemia (07/01/23) Periprosthetic fracture around internal prosthetic left hip joint, initial encounter (07/01/23) Acute kidney failure, unspecified (07/01/23) Contusion of left hip, initial encounter (07/01/23) Subjective Subjective No acute events overnight. Patient seen at bedside this morning. Laying comfortably bed, conversing normally, no acute distress. Patient's energy and color appear much improved this morning. Patient states that she feels significantly improved from admission. She denies any acute pain or discomfort at this time. Still has not been up and moving around much, but has no issues at rest. Denies any fevers or chills, chest pain, shortness of breath. No other acute concerns at this time. Objective Data Objective Data Vital Signs: Vital Signs Temp Pulse Resp BP Pulse Ox O2 Del Method 98.2 F 90 14 137/76 H 95 Room Air 07/03/23 08:15 07/03/23 08:15 07/03/23 08:15 07/03/23 08:15 07/03/23 08:20 07/03/23 08:20 Oxygen Delivery Method Room Air Weight: 56.5 kg Body Mass Index (BMI) 22.8 Intake & Output: Intake and Output for Last 24 Hours 07/01/23 07/02/23 07/03/23 23:59 23:59 23:59 Intake Total 4426.93 / 4426.93 3396.66 / 3396.66 260 / 260 Output Total 2300 / 2450 1675 / 1675 550 / 550 Balance 2126.93 / 1976.93 1721.66 / 1721.66 -290 / -290 Lab / Micro Data 07/03/23 05:12 07/03/23 05:12 Labs: Laboratory Results - last 24 hr 07/01/23 18:00: Immature Gran % (Auto) [employer], Neut % (Auto) [employer], Lymph % (Auto) [employer], [place] % (Auto) [employer], Eos % (Auto) [employer], Baso % (Auto) [employer], Absolute Neuts (auto) 12.3 H, Absolute Lymphs (auto) 0.27 L, Total Counted 100, Neutrophils % (Manual) 90 H , Band Neutrophils % 2, Lymphocytes % (Manual) 2 L, Monocytes % (Manual) 3, Myelocytes % 3 H, Nucleated RBC % [employer], Diff Path Review December07/02/23 17:24: POC Glucose 321 H 07/03/23 05:12: WBC 8.4, RBC 3.55 L, Hgb 10.3 L, Hct 33.7 L, MCV 94.9, MCH 29.0, MCHC 30.6 L, RDW Std Deviation 60.8 H, RDW Coeff of Tk 19.5 H, Plt Count 426, MPV 9.8, PT 19.4 H, INR 1.6, Sodium 135 L, Potassium 3.9, Chloride 107, Carbon Dioxide 21.0, Anion Gap 7, BUN 41 H, Creatinine 0.64, Estim Creat Clear Calc 38.44, Est GFR (MDRD) Af Amer 116, Est GFR (MDRD) Non-Af 96, BUN/Creatinine Ratio 63.8 H, Glucose 319 H, Calcium 7.9 L, Total Bilirubin 1.80 H, Direct Bilirubin 1.38 H, AST 789 H, ALT 289 H, Alkaline Phosphatase 249 H, Total Protein 5.8 L, Albumin 2.0 L, Globulin 3.8, Vancomycin Trough 8.2 07/03/23 07:13: POC Glucose 290 H 07/03/23 08:29: PT 22.5 H, INR 2.0, APTT 36.2 07/03/23 11:09: POC Glucose 352 H Micro: Microbiology 07/01/23 08:45 Blood Culture (Wb) - Anticubital Right Blood Culture - Preliminary No growth in 48 hours. 07/01/23 13:18 Blood Culture (Wb) - Left Forearm Blood Culture - Preliminary No growth in 48 hours. 06/30/23 23:25 Urine Catheter - Catheter Urine Culture - Final Presumptive E. coli 07/01/23 15:05 Stool Stool Occult Blood (JUDY) - Final Rhythm Strip Rhythm Strip: A-fib Rate: 124 Ectopy: None Physical Exam Const alert and no apparent distress Constitutional Narrative: Elderly female, chronic ill-appearing, pale, laying comfortably in bed, conversing normally, no acute distress. General Appearance: cooperative and comfortable HEENT normocephalic, head/scalp atraumatic, hearing grossly normal bilaterally, nasal mucous membranes and turbinates normal and moist oral mucous membranes Eyes PERRL, EOMs intact bilaterally and conjunctivae normal Neck full ROM, no lymphadenopathy and supple Lymph Lymphatic: no lymphadenopathy noted Chest inspection of chest normal Resp Resp Narrative: Satting well on room air, no increased work of breathing noted. Mildly decreased breath sounds in bilateral lung bases. Cardio no murmurs and peripheral pulses 2+ throughout Cardio Narrative: A-fib, rate controlled. GI normal to inspection, nondistended, normoactive bowel sounds, soft to palpation, non-tender and non-distended Back/Spine normal ROM Extremity normal to inspection Extremity Narrative: Left hip with no overt erythema, appears grossly normal on exam. Nontender to palpation. Skin no rashes or lesions noted Psych mental status grossly normal Assessment & Plan Assessment/Plan (1) Sepsis: PLAN: Plan Patient is a 73-year-old female who presented [facility] ED on 06/30/2023 with generalized weakness with falls at home, worsening left hip pain and worsening right-sided low back and flank pain. 1. Severe sepsis suspected secondary to UTI, improving; lactic acidosis, resolved Patient met sepsis criteria on admission with new MURRAY, leukocytosis, tachycardia, tachypnea and elevated lactate. CT abdomen pelvis showed bilateral nephric stranding which is new compared to prior CT imaging. CT of the hip showed chronic hematoma unclear if change from previous. UA suggestive of infection. Patient fully resuscitated in ED with IV fluids at 30 cc/kg. Never required pressors. Blood cultures pending. Notably, orthopedics evaluated on admission as noted below, no concern for infected left hip, signed off. [employer] followed, patient transferred to general medical floor on 07/02, waybill clerk signed off. Urine culture results final, grew pansensitive E. coli. Blood cultures with no growth at 48 hours. ? De-escalated to ceftriaxone on 07/03. We will plan to complete 10-day course of antibiotics total, stop date 07/10. Lactic acidosis resolved on 07/01. 2. MURRAY, resolved Creatinine 1.83 on admit, baseline creatinine appears to be around 0.3-0.6. Suspected prerenal MURRAY due to sepsis as noted above. Specific gravity of UA suggestive of volume depletion. Volume resuscitated in the ED as above. ? Creatinine improved to 0.71 on 07/01. Continue to monitor BMP daily for now. Treat UTI as noted above. 3. Acute on chronic anemia Hemoglobin 7.4 on admission. Patient was recently hospitalized at the end of May for a fall with periprosthetic hip fracture. Orthopedics followed as below, recommended nonoperative management. Patient was noted to have a left hip hematoma at that time as well. Patient hemoglobin during that admission was 12-14. However, post discharge she was noted to have hemoglobin drop from 12.4 on 06/19, to 9.3 on 06/21, to 7.3 on 06/23. Suspect acute hemoglobin drop was most likely due to bleeding into left hip causing left hip hematoma while on Coumadin for anticoagulation. S/p transfusion of 2 units of packed red blood cells on 07/01, repeat hemoglobin 9.6. Notably, iron studies consistent with anemia of chronic disease. ? Continue to monitor CBC daily. Resumed warfarin on 07/02 as noted below. 4. Atrial fibrillation with RVR, improving Known history of atrial fibrillation on Coumadin. Developed A-fib with RVR with heart rate to 140s on 07/01, suspected secondary to sepsis and anemia as noted above. Given 1 dose of digoxin during 250 mcg without improvement. Given 1 dose of amiodarone bolus on 07/01 with improvement in rate. ? Heart rate stabilized with treatment of infection as noted above, not on rate control or antiarrhythmic therapy at this point. Monitor telemetry. Continue warfarin. 5. Left hip hematoma, history of left total hip replacement in 10/2022 with periprosthetic hip fracture in 05/2023 treated with nonoperative management Recently hospitalized from 06/09 to 06/12 for a fall resulting in periprosthetic hip fracture of repair to the left hip. Orthopedics followed at that time, recommended nonoperative management. Was also noted on imaging to have a left hip hematoma, however blood counts remained stable at that time and orthopedics felt it would tamponade off on its own. ? Repeat CT hip on admission showed continued left hip hematoma. Orthopedics evaluated on 07/01, noted the patient's hematoma was overall stable and patient has no worsening clinical symptoms such as erythema, edema or ecchymosis surrounding the hip. No need for orthopedic intervention at this time. Orthopedics signed off. For previous fracture, continue previous orthopedic recommendations of 2?touch weightbearing to left lower extremity. PT/OT/case management consulted. Pain control medications as needed. 6. History of mitral valve replacement with mechanical valve on Coumadin Therapeutic INR of 2.9 on admission. However, worsened to INR 4.0 on 07/01, Coumadin held. ? INR 2.5 on 07/02, restarted home warfarin given no plans for intervention at this time. Monitor INR daily. 7. Hyponatremia, resolved ? Suspected secondary to for p.o. intake recently. Sodium 130 on admit. Resolved on 07/02. Monitor BMP. 8. Thrombocytosis ? Presumed secondary to sepsis as noted above. Monitor. 9. Debility ? Chronic debility in setting of previous of fracture in October requiring repair, followed by recurrent fracture in late May treated with nonoperative management as noted above. PT/OT/case management following. Planning for SNF on discharge. Chronic medical conditions: ? Uncontrolled type 2 diabetes: A1c of 13.6% on 06/15/2023. Was started on insulin at that time. Hyperglycemia on admission with BG 42, improved to normal range with treatment. Continue sliding-scale insulin for now. Hold home scheduled insulin, restart as needed. Hold home metformin. Monitor closely. ? Hyperlipidemia: Continue home statin and colestipol. ? GERD: Continue home PPI. ? Vitamin D deficiency: Continue home vitamin D supplement. DVT prophylaxis: Warfarin CODE STATUS: DNR CCA, DO NOT INTUBATE Expected disposition: SNF, 2 to 3 days Total clinical time spent by myself addressing the patient's medical issues, reviewing all the data, and collaborating with patient's care team: 35 minutes. Charges/Coding Visit Charges Inpatient E&M: 18086 Subs Hosp L2
[2023-07-03 14:35] VITALS: BP 125/77; PULSE 101; RESP 14; TEMP 36.7; O2SAT 96
[2023-07-03 14:54] LABS: Partial Thromboplast Time 101.7 Seconds (24.1-36.2)
[2023-07-03 17:16] LABS: Bedside Glucose 179 mg/dL (74-106)
[2023-07-03 20:50] VITALS: BP 128/72; PULSE 99; RESP 16; TEMP 36.7; O2SAT 96
[2023-07-03] MEDS: DiphenhydrAMINE 25 MG Capsule 50 MG PO (20:59)
[2023-07-03] MEDS: Atorvastatin Calcium 40 MG Tablet PO (21:00)
[2023-07-03] MEDS: Mirtazapine 15 MG Tablet PO (21:00)
--- NOTE | 2023-07-03 21:55 | NURSING ---
pt refused night blood sugar check, this RN attempted to educate pt on the importance of checking sugars. Pt denies S/S of hypo or hyperglycemia
[2023-07-03] MEDS: Acetaminophen 500 MG Tablet 1000 MG PO (23:42)
[2023-07-04] VITALS (7 sets, daily range): BP systolic 96–122; BP diastolic 63–75; PULSE 86–113; RESP 16–18; TEMP 36.5–36.7; O2SAT 96–100; BMI 22.6
[2023-07-04] MEDS: Metoprolol Tartrate 5 MG/5 ML Vial IV (02:21)
[2023-07-04 05:02] LABS: Hematocrit 33.8 % (37-47); Hemoglobin 10.3 g/dL (12.0-15.0); Mean Corp Hgb Conc 30.5 g/dL (32-36); Mean Corpuscular Hgb 29.3 pg (27.0-32.0); Mean Platelet Vol. 9.8 fl (6.2-12.0); Platelet Count 378 K/mm3 (150-450); RBC Distribution Width SD 63.3 fl (35.1-43.9); Red Blood Count 3.52 M/mm3 (4.2-5.4); White Blood Count 7.8 K/mm3 (4.4-11.0)
[2023-07-04 05:12] LABS: International Normalized Ratio 1.4; Prothrombin Time (Protime)PT. 17.4 SECONDS (11.7-14.9)
[2023-07-04 05:22] LABS: Partial Thromboplast Time 63.1 Seconds (24.1-36.2)
[2023-07-04 05:26] LABS: Anion Gap 7 (5-15); BUN 37 mg/dL (7-18); BUN/Creat Ratio 72.7 RATIO (10-20); Chloride 108 mmol/L (98-107); Creatinine, Serum 0.51 mg/dL (0.55-1.02); EST Glomerular Filtration Rate 125 mL/min (>60); Est Glom Filt Rate - Afr Amer 151 mL/min (>60); Estimated Creatinine Clearance 38.44 ml/min; Glucose 315 mg/dL (74-106); Sodium Level 135 mmol/L (136-145)
[2023-07-04] MEDS: Insulin Lispro 100 UNIT/ML INSULN.PEN SC ×4 (06:44→17:10)
[2023-07-04] MEDS: Gemfibrozil 600 MG Tablet PO ×2 (06:45→17:10)
[2023-07-04 07:08] LABS: Bedside Glucose 285 mg/dL (74-106)
[2023-07-04 08:41] LABS: AST(SGOT) 280 U/L (15-37); Alanine Aminotransfer ALT/SGPT 205 U/L (13-56); Albumin, Serum 1.9 g/dL (3.2-5.0); Alkaline Phosphatase 230 U/L (45-117); Bilirubin, Direct 1.03 mg/dL (0.00-0.30); Globulin 3.6 g/dL (2.2-4.2); Protein, Total 5.5 g/dL (6.4-8.2)
[2023-07-04] MEDS: Glucerna Shake 120 ML LIQUID PO ×3 (09:40→21:04)
[2023-07-04] MEDS: Lidocaine 5% Patch 1 PATCH TOPICAL (09:47)
[2023-07-04] MEDS: Colestipol 1 GM TABLET PO (09:47)
[2023-07-04] MEDS: Atenolol 50 MG Tablet PO (09:47)
[2023-07-04] MEDS: Pantoprazole Sodium 40 MG Tablet PO ×2 (09:47→20:55)
[2023-07-04] MEDS: Cholecalciferol (VIT D3) 25 MCG TABLET (1,000 UNITS) 50 MCG PO (09:49)
[2023-07-04] MEDS: Ceftriaxone 1 GM/50 ML BAG IV (09:49)
[2023-07-04 11:01] LABS: Partial Thromboplast Time 69.1 Seconds (24.1-36.2)
[2023-07-04 11:49] LABS: Bedside Glucose 419 mg/dL (74-106)
--- NOTE | 2023-07-04 12:24 | PN.HOSP_ITS ---
Reason for Visit Reason for Visit: Diagnoses Sepsis, unspecified organism (07/01/23) Anemia, unspecified (07/01/23) Elevated white blood cell count, unspecified (07/01/23) Thrombocytosis, unspecified (07/01/23) Hypoglycemia, unspecified (07/01/23) Hypo-osmolality and hyponatremia (07/01/23) Hyperkalemia (07/01/23) Periprosthetic fracture around internal prosthetic left hip joint, initial encounter (07/01/23) Acute kidney failure, unspecified (07/01/23) Contusion of left hip, initial encounter (07/01/23) Subjective Subjective No acute events overnight. Patient seen at bedside this morning, multiple family members present. Patient laying comfortably in bed, conversing normally, no acute distress. Patient states that she continues to feel weak but otherwise denies any acute pain or discomfort this morning. Denies any chest pain, short ness of breath, abdominal pain, fevers or chills. Continues to tolerate the Christiansen catheter well at this time. No other acute concerns this morning. Objective Data Objective Data Vital Signs: Vital Signs Temp Pulse Resp BP Pulse Ox O2 Del Method 98 F 92 18 108/69 99 Room Air 07/04/23 09:42 07/04/23 09:42 07/04/23 09:42 07/04/23 09:42 07/04/23 09:42 07/04/23 09:42 Oxygen Delivery Method Room Air Weight: 56.1 kg Body Mass Index (BMI) 22.6 Intake & Output: Intake and Output for Last 24 Hours 07/02/23 07/03/23 07/04/23 23:59 23:59 23:59 Intake Total 3396.66 / 3396.66 363.73 / 363.73 50 / 50 Output Total 1675 / 1675 800 / 800 320 / 320 Balance 1721.66 / 1721.66 -436.27 / -436.27 -270 / -270 Lab / Micro Data 07/04/23 04:54 07/04/23 04:54 Labs: Laboratory Results - last 24 hr 07/03/23 14:32: APTT 101.7 H* 07/03/23 16:56: POC Glucose 179 H 07/03/23 22:50: APTT 78.0 H 07/04/23 04:54: WBC 7.8, RBC 3.52 L, Hgb 10.3 L, Hct 33.8 L, MCV 96.0, MCH 29.3, MCHC 30.5 L, RDW Std Deviation 63.3 H, RDW Coeff of Tk 20.0 H, Plt Count 378, MPV 9.8, PT 17.4 H, INR 1.4, APTT 63.1 H, Sodium 135 L, Potassium 4.0, Chloride 108 H, Carbon Dioxide 20.0 L, Anion Gap 7, BUN 37 H, Creatinine 0.51 L, Estim Creat Clear Calc 38.44, Est GFR (MDRD) Af Amer 151, Est GFR (MDRD) Non-Af 125, BUN/Creatinine Ratio 72.7 H, Glucose 315 H, Calcium 8.0 L, Total Bilirubin 1.40 H, Direct Bilirubin 1.03 H, AST 280 H, ALT 205 H, Alkaline Phosphatase 230 H, Total Protein 5.5 L, Albumin 1.9 L, Globulin 3.6 07/04/23 06:44: POC Glucose 285 H 07/04/23 10:39: APTT 69.1 H 07/04/23 11:27: POC Glucose 419 H Micro: Microbiology 07/01/23 08:45 Blood Culture (Wb) - Anticubital Right Blood Culture - Preliminary No growth in 48 hours. 07/01/23 13:18 Blood Culture (Wb) - Left Forearm Blood Culture - Preliminary No growth in 48 hours. 06/30/23 23:25 Urine Catheter - Catheter Urine Culture - Final Presumptive E. coli 07/01/23 15:05 Stool Stool Occult Blood (JUDY) - Final Rhythm Strip Rhythm Strip: A-fib Rate: 124 Ectopy: None Physical Exam Const alert and no apparent distress Constitutional Narrative: Elderly female, chronic ill-appearing, pale, laying comfortably in bed, conversing normally, no acute distress. General Appearance: cooperative and comfortable HEENT normocephalic, head/scalp atraumatic, hearing grossly normal bilaterally, nasal mucous membranes and turbinates normal and moist oral mucous membranes Eyes PERRL, EOMs intact bilaterally and conjunctivae normal Neck full ROM, no lymphadenopathy and supple Lymph Lymphatic: no lymphadenopathy noted Chest inspection of chest normal Resp Resp Narrative: Satting well on room air, no increased work of breathing noted. Mildly decreased breath sounds in bilateral lung bases. Cardio no murmurs and peripheral pulses 2+ throughout Cardio Narrative: A-fib, rate controlled. GI normal to inspection, nondistended, normoactive bowel sounds, soft to palpation, non-tender and non-distended Back/Spine normal ROM Extremity normal to inspection Extremity Narrative: Left hip with no overt erythema, appears grossly normal on exam. Nontender to palpation. Skin no rashes or lesions noted Psych mental status grossly normal Assessment & Plan Assessment/Plan (1) Sepsis: PLAN: Plan Patient is a 73-year-old female who presented [facility] ED on 06/30/2023 with generalized weakness with falls at home, worsening left hip pain and worsening right-sided low back and flank pain. 1. Severe sepsis suspected secondary to UTI, improving; lactic acidosis, resolved Patient met sepsis criteria on admission with new MURRAY, leukocytosis, tachycardia, tachypnea and elevated lactate. CT abdomen pelvis showed bilateral nephric stranding which is new compared to prior CT imaging. CT of the hip showed chronic hematoma unclear if change from previous. UA suggestive of infection. Patient fully resuscitated in ED with IV fluids at 30 cc/kg. Never required pressors. Blood cultures pending. Notably, orthopedics evaluated on admission as noted below, no concern for infected left hip, signed off. St[employer] followed, patient transferred to general medical floor on 07/02, corporate logistics manager signed off. Urine culture results final, grew pansensitive E. coli. Blood cultures with no growth at 48 hours. ? De-escalated to ceftriaxone on 07/03. We will plan to complete 10-day course of antibiotics total, stop date 07/10. Lactic acidosis resolved on 07/01. Christiansen catheter was placed on admission for sepsis, concern for acute urinary retention and accurate monitoring of I/O's. Christiansen catheter discontinued on 07/04, completing voiding trial, monitor urine output. 2. MURRAY, resolved Creatinine 1.83 on admit, baseline creatinine appears to be around 0.3-0.6. Suspected prerenal MURRAY due to sepsis as noted above. Specific gravity of UA suggestive of volume depletion. Volume resuscitated in the ED as above. ? Creatinine improved to 0.71 on 07/01. Continue to monitor BMP daily for now. Treat UTI as noted above. 3. Acute on chronic anemia Hemoglobin 7.4 on admission. Patient was recently hospitalized at the end of May for a fall with periprosthetic hip fracture. Orthopedics followed as below, recommended nonoperative management. Patient was noted to have a left hip hematoma at that time as well. Patient hemoglobin during that admission was 12-14. However, post discharge she was noted to have hemoglobin drop from 12.4 on 06/19, to 9.3 on 06/21, to 7.3 on 06/23. Suspect acute hemoglobin drop was most likely due to bleeding into left hip causing left hip hematoma while on Coumadin for anticoagulation. S/p transfusion of 2 units of packed red blood cells on 07/01, repeat hemoglobin 9.6. Notably, iron studies consistent with anemia of chronic disease. ? Continue to monitor CBC daily. Resumed warfarin on 07/02 as noted below. 4. Atrial fibrillation with RVR, improving Known history of atrial fibrillation on Coumadin. Developed A-fib with RVR with heart rate to 140s on 07/01, suspected secondary to sepsis and anemia as noted above. Given 1 dose of digoxin during 250 mcg without improvement. Given 1 dose of amiodarone bolus on 07/01 with improvement in rate. ? Heart rate stabilized with treatment of infection as noted above, not on rate control or antiarrhythmic therapy at this point. Monitor telemetry. Continue warfarin. 5. Left hip hematoma, history of left total hip replacement in 10/2022 with periprosthetic hip fracture in 05/2023 treated with nonoperative management Recently hospitalized from 06/09 to 06/12 for a fall resulting in periprosthetic hip fracture of repair to the left hip. Orthopedics followed at that time, recommended nonoperative management. Was also noted on imaging to have a left hip hematoma, however blood counts remained stable at that time and orthopedics felt it would tamponade off on its own. ? Repeat CT hip on admission showed continued left hip hematoma. Orthopedics evaluated on 07/01, noted the patient's hematoma was overall stable and patient has no worsening clinical symptoms such as erythema, edema or ecchymosis surrounding the hip. No need for orthopedic intervention at this time. Orthopedics signed off. For previous fracture, continue previous orthopedic recommendations of 2?touch weightbearing to left lower extremity. PT/OT/case management consulted. Pain control medications as needed. 6. History of mitral valve replacement with mechanical valve on Coumadin Therapeutic INR of 2.9 on admission. However, worsened to INR 4.0 on 07/01, Coumadin held. ? INR 2.5 on 07/02, restarted home warfarin given no plans for intervention at this time. Monitor INR daily. 7. Hyponatremia, resolved ? Suspected secondary to for p.o. intake recently. Sodium 130 on admit. Resolved on 07/02. Monitor BMP. 8. Thrombocytosis ? Presumed secondary to sepsis as noted above. Monitor. 9. Debility ? Chronic debility in setting of previous of fracture in October requiring repair, followed by recurrent fracture in late May treated with nonoperative management as noted above. PT/OT/case management following. Planning for SNF on discharge. 10. Elevated LFTs, improving Very likely secondary to acute liver injury from ischemia secondary to sepsis as noted above. AST 166, ALT 40, alk phos 218, total bilirubin 2.10 on admit. Peaked at AST 789, ALT 289, alk phos 249 on 07/03. CT abdomen pelvis on 06/30 notably showed cholelithiasis and gallbladder wall thickening, possibly concerning for cholecystitis. Patient has had no right upper quadrant pain specifically since admission. Notably has been treated with antibiotics since admission that would cover typical gram-negative bacteria that cause acute jacquelin cystitis. ? Acute hepatitis panel and right upper quadrant ultrasound ordered on 07/04 to rule out acute RUQ pathology. Continue to trend LFTs. 11. Uncontrolled type 2 diabetes A1c of 13.6% on 06/15/2023. Was started on insulin at that time. Hyperglycemia on admission with BG 42, improved to normal range with treatment. Home regimen somewhat unclear from records. ? Maintain on sliding scale insulin from admission till 07/04. Appetite improving, glucoses trending upward. Started Lantus 15 units at night, Humalog 5 units with meals plus medium-high dosing of sliding-scale insulin on 07/04. Adjust as needed. Chronic medical conditions: ? Hyperlipidemia: Continue home statin and colestipol. ? GERD: Continue home PPI. ? Vitamin D deficiency: Continue home vitamin D supplement. DVT prophylaxis: Warfarin CODE STATUS: DNR CCA, DO NOT INTUBATE Expected disposition: SNF, 1-2 days Total clinical time spent by myself addressing the patient's medical issues, reviewing all the data, and collaborating with patient's care team: 35 minutes. Charges/Coding Visit Charges Inpatient E&M: 33884 Subs Hosp L2
[2023-07-04] MEDS: Menthol/Lanolin/Calamine/Znox 113 GM Tube 1 APPLIC TOPICAL ×2 (14:16→20:59)
[2023-07-04 17:31] LABS: Bedside Glucose 366 mg/dL (74-106)
[2023-07-04] MEDS: DiphenhydrAMINE 25 MG Capsule 50 MG PO (20:55)
[2023-07-04] MEDS: Mirtazapine 15 MG Tablet PO (20:55)
[2023-07-04] MEDS: Insulin Glargine-YFGN 100 UNIT/ML Pen 15 UNIT SC (20:58)
[2023-07-04 22:39] LABS: Bedside Glucose 283 mg/dL (74-106)
[2023-07-05] VITALS (9 sets, daily range): BP systolic 109–123; BP diastolic 66–81; PULSE 82–93; RESP 16–18; TEMP 36.2–36.7; O2SAT 93–100; BMI 22.8
[2023-07-05] MEDS: HEPARIN/D5w 25,000 UNITS 25,000 UNITS/250 ML IV.SOLN. 6 UNITS CONT INF (01:33)
[2023-07-05] MEDS: Menthol/Lanolin/Calamine/Znox 113 GM Tube 1 APPLIC TOPICAL ×2 (05:46→20:39)
[2023-07-05 06:09] LABS: Hematocrit 36.6 % (37-47); Hemoglobin 11.1 g/dL (12.0-15.0); Mean Corp Hgb Conc 30.3 g/dL (32-36); Mean Corpuscular Hgb 29.4 pg (27.0-32.0); Mean Corpuscular Volume 96.8 fL (81-99); Mean Platelet Vol. 10.1 fl (6.2-12.0); POSITIVE MORPHOLOGY YES; Platelet Count 406 K/mm3 (150-450); RBC Distribution Width CV 20.3 % (11.6-14.6); RBC Distribution Width SD 66.6 fl (35.1-43.9); Red Blood Count 3.78 M/mm3 (4.2-5.4); White Blood Count 8.2 K/mm3 (4.4-11.0)
[2023-07-05 06:22] LABS: Scan Indicated on CBC? Y/N YES- FLAGS NOTED
[2023-07-05 06:24] LABS: International Normalized Ratio 1.5; Prothrombin Time (Protime)PT. 18.4 SECONDS (11.7-14.9)
[2023-07-05 06:44] LABS: Partial Thromboplast Time 45.5 Seconds (24.1-36.2)
--- NOTE | 2023-07-05 07:00 | US_ITS ---
STUDY: ABDOMINAL ULTRASOUND - RIGHT UPPER QUADRANT REASON FOR VISIT: Female, 73 years old. Elevated LFTs. TECHNIQUE: Evaluate TECHNICAL QUALITY: Adequate. COMPARISON: CT dated 06/30/2023 FINDINGS: Liver: The liver measures 15.5 cm. There is increased echogenicity consistent with fatty infiltration. The bile ducts are within normal limits. There is hepatic color flow. The direction of portal flow is hepatopetal. There is no demonstrated mass lesion. Gallbladder: The gallbladder is distended. The gallbladder wall measures 5 mm. There is a negative sonographic Echols''s sign. There is pericholecystic fluid. There are multiple echogenic structures within the gallbladder, consistent with multiple gallstones. Common Bile Duct (C.B.D.): The common bile duct measures 4 mm. Pancreas: Normal size of the head, body and tail of the pancreas. There is normal echogenicity of the pancreas. There is no demonstrated pancreatic mass or cyst. Right Kidney: Normal size of the right kidney. The right kidney measures 11.9 cm. Normal renal cortex. There is no demonstrated renal mass or cyst. There is no right hydronephrosis. US/Abdomen Limited IMPRESSION: Distended gallbladder with gallstones, gallbladder wall thickening and pericholecystic fluid. In the appropriate clinical setting, these findings are consistent with acute cholecystitis and clinical correlation is recommended. Fatty liver. Electronically Signed: Levi Brady MD at 8:22 EST ,
[2023-07-05 07:06] LABS: ALB/GLOB Ratio 0.5 RATIO (0.9-2.4); AST(SGOT) 122 U/L (15-37); Alanine Aminotransfer ALT/SGPT 157 U/L (13-56); Alkaline Phosphatase 221 U/L (45-117); Anion Gap 9 (5-15); BUN 37 mg/dL (7-18); BUN/Creat Ratio 70.7 RATIO (10-20); Calcium,Total 8.4 mg/dL (8.5-10.1); Chloride 105 mmol/L (98-107); Creatinine, Serum 0.52 mg/dL (0.55-1.02); EST Glomerular Filtration Rate 121 mL/min (>60); Est Glom Filt Rate - Afr Amer 147 mL/min (>60); Estimated Creatinine Clearance 38.44 ml/min; Globulin 3.9 g/dL (2.2-4.2); Glucose 215 mg/dL (74-106); Potassium 4.5 mmol/L (3.5-5.1); Protein, Total 5.9 g/dL (6.4-8.2); Sodium Level 134 mmol/L (136-145)
[2023-07-05 07:08] LABS: Differential Comment SCANNED
[2023-07-05] MEDS: Heparin Injection (Vial) 5,000 UNIT/ML VIAL IV (07:35)
[2023-07-05] MEDS: Glucerna Shake 120 ML LIQUID PO ×2 (08:22→16:23)
[2023-07-05] MEDS: Insulin Lispro 100 UNIT/ML INSULN.PEN SC ×5 (08:23→16:21)
[2023-07-05] MEDS: Gemfibrozil 600 MG Tablet PO ×2 (08:26→16:22)
[2023-07-05] MEDS: Pantoprazole Sodium 40 MG Tablet PO ×2 (08:26→20:40)
[2023-07-05] MEDS: Cholecalciferol (VIT D3) 25 MCG TABLET (1,000 UNITS) 50 MCG PO (08:28)
[2023-07-05] MEDS: Atenolol 50 MG Tablet PO (08:30)
[2023-07-05] MEDS: Ceftriaxone 1 GM/50 ML BAG IV (08:54)
[2023-07-05] MEDS: Acetaminophen 325 MG Tablet PO (08:58)
--- NOTE | 2023-07-05 09:10 | CASEMGMT ---
Patient was approved to return to [facility]. SW notified physician. Plan: d/c back to [facility] under skilled level of care. Physicians will transport patient. Breana RAYA
[2023-07-05 09:41] LABS: Pathologist Review Reviewed
[2023-07-05 09:47] LABS: Pathologist Review Reviewed
[2023-07-05 09:51] LABS: Pathologist Review Reviewed
[2023-07-05] MEDS: Lidocaine 5% Patch 1 PATCH TOPICAL (10:39)
[2023-07-05] MEDS: Colestipol 1 GM TABLET PO (10:40)
[2023-07-05 11:06] LABS: Bedside Glucose 218 mg/dL (74-106)
--- NOTE | 2023-07-05 11:12 | TREXTCAR_ITS ---
Diet Diet Order/Speech Therapy: 07/02/23 09:38 Diet: Carbohydrate Controlled Is pt able to select menu?: Yes Routine Orders/Code Status Routine Lab Work: CBC, BMP and INR Code Status: DNRCC-A Therapies Occupational Therapy: Eval and Treat Speech Therapy: Eval and Treat Problem/Diagnosis (1) Sepsis: Status: Acute Code(s): A41.9 - Sepsis, unspecified organism Allergies/Procedures Done in Hospital Allergies Calcium Channel Blocking Agent Dilt [Calcium Channel Blocking Agents-Win] Allergy (Verified 06/30/23 18:05) Rash Procedures: None Type of Care/Length of Stay Estimated LOS: Convalescent Care Less Than 30 days Type of Care Needed: Skilled Rehab Potential: Good Prognosis: Good Additional Orders/Day of Discharge Day of Discharge: 07/05/23 Dietary and Speech Recommendations Dietitian Recommendations/Changes: Change diet to CHO Controlled w/ 120mL Glucerna 4x/day w/ medpass Discharge Plan Admission Admit Date/Time: 07/01/23 01:10 Attending Provider: Apollo Hsu Primary Care Provider: Gwen David Consulting Providers: Monique Angel; Apollo Loyd; Km Serna Discharge Orders/Prescriptions Prescriptions: New cephalexin 500 mg capsule 500 mg PO Q8H 3 Days Qty: 9 0RF Continued atorvastatin 40 mg tablet 40 mg PO DAILY colestipol [Colestid] 1 gram tablet 1 g PO DAILY gemfibrozil [Lopid] 600 MG tablet 600 mg PO BIDAC diphenhydramine HCl [Benadryl] 25 mg Capsule 50 mg PO QHS cholecalciferol (vitamin D3) [Vitamin D3] 50 mcg (2,000 unit) Capsule 50 mcg PO DAILY omeprazole 40 mg capsule,delayed release(DR/EC) 40 mg PO BID insulin lispro [Humalog KwikPen Insulin] 100 unit/mL Insulin Pen See Protocol subcut TIDAC Qty: 0 0RF Protocol: 4. Sliding Scale Insulin High-Med Dosing Condition: 150-199 mg/dl = 2 units Condition: 200-259 mg/dl = 4 units Condition: 260-324 mg/dl = 6 units Condition: 325-374 mg/dl = 8 units Condition: 375-409 mg/dl = 10 units Condition: 410-449 mg/dl = 11 units Condition: Greater than 449 call physician Protocol Text: - Use for Total Daily Dose of Insulin 56-80 units - Patient who are insulin resistant or septic HIGH MEDIUM DOSING ALGORITHM polyethylene glycol 3350 17 gram Powder In Packet 17 g PO DAILY Qty: 0 0RF lidocaine 5 % Adhesive Patch,Medicated 1 patch topical DAILY Qty: 0 0RF Protocol: *Topical Application Instructions APPLICATION INSTRUCTIONS: right hip Remove Patch 1 patch topical DAILY@2200 Qty: 0 0RF acetaminophen [Acetaminophen Extra Strength] 500 mg tablet 1,000 mg PO QHS PRN (Reason: pain) acetaminophen 325 mg capsule 325 mg PO Q4H PRN (Reason: pain) Patient Comments: DO NO EXCEED 4GM IN 24H insulin lispro [Humalog U-100 Insulin] 100 unit/mL solution 17 unit subcut QPM Hold Instructions: Duplicate Order mirtazapine [Remeron] 15 mg tablet 15 mg PO QHS insulin glargine-yfgn 100 unit/mL (3 mL) Insulin Pen 15 unit subcut DAILY Hold Instructions: Order Changed Rx Instructions: EACH AM enoxaparin 60 mg/0.6 mL syringe 50 mg subcut DAILY oxycodone-acetaminophen [Percocet] 5-325 mg tablet 1 tab PO Q6H PRN (Reason: pain) 7 Days Qty: 28 0RF methocarbamol 500 mg tablet 500 mg PO 4X/DAY PRN PRN (Reason: Muscle pain/spasm) Qty: 40 0RF warfarin 4 mg tablet 4 mg PO MOWEFR insulin glargine [Lantus Solostar U-100 Insulin] 100 unit/mL (3 mL) insulin pen 17 unit subcut QPM insulin glargine [Lantus Solostar U-100 Insulin] 100 unit/mL (3 mL) insulin pen 15 unit subcut BREAKFAST warfarin 5 mg tablet 5 mg PO .TUTHSASU Protocol: Dose Management Condition: Wednesday Dose/Route: 5 mg Instruction: 1 x 5 mg tablet Condition: Wednesday Dose/Route: 7.5 mg Instruction: 1.5 x 5 mg tablets Condition: Wednesday Dose/Route: 7.5 mg Instruction: 1.5 x 5 mg tablets Condition: Wednesday Dose/Route: 5 mg Instruction: 1 x 5 mg tablet Condition: Dose/Route: 5 mg Instruction: 1 x 5 mg tablet Condition: Wednesday Dose/Route: 5 mg Instruction: 1 x 5 mg tablet Condition: Wednesday Dose/Route: 5 mg Instruction: 1 x 5 mg tablet Protocol Text: Adjustment Start Date: Wednesday08/13/20 INR Value: 2.90 INR Date: 07/31/20 meclizine 12.5 mg tablet 12.5 mg PO TID PRN (Reason: DIZZINESS ) Held metformin 500 mg tablet extended release 24 hr 1,000 mg PO BID Hold Instructions: Resume on 07/15/23. Niki SoloStar U-300 Insulin 300 unit/mL (1.5 mL) insulin pen 15 unit SUBCUT DAILY Hold Instructions: Resume on 07/15/23. Rx Instructions: QAM Referrals / Follow Up: Gwen David MD [Primary Care Provider] - Disposition Disposition (needs filled in before D/C Order can be placed): [facility]
--- NOTE | 2023-07-05 11:38 | PHA.DC.MR.R ---
Pharmacy MD Med Reconciliation Pharmacy Service has performed discharge medication reconciliation for this patient. The patient's discharge medication list was reviewed for discrepancies and discrepancies were resolved. Medications at Discharge Home Medications gemfibrozil 600 mg tablet (Lopid) 600 mg PO BIDAC CHOLESTEROL 07/10/13 atorvastatin 40 mg tablet 40 mg PO DAILY CHOLESTEROL 12/21/17 meclizine 12.5 mg tablet 12.5 mg PO TID PRN DIZZINESS 09/30/20 cholecalciferol (vitamin D3) 50 mcg (2,000 unit) capsule (Vitamin D3) 50 mcg PO DAILY SUPPLEMENT 10/14/22 diphenhydramine HCl 25 mg capsule (Benadryl) 50 mg PO QHS SLEEP 10/14/22 colestipol 1 gram tablet (Colestid) 1 g PO DAILY CHOLESTEROL 03/24/23 metformin 500 mg tablet,extended release 24 hr 1,000 mg PO BID BLOOD SUGARS 06/09/23 omeprazole 40 mg capsule,delayed release 40 mg PO BID ACID REFLUX 06/09/23 Remove Patch 1 patch topical DAILY@2200 ##0 06/12/23 insulin lispro 100 unit/mL subcutaneous pen (Humalog KwikPen (U-100) Insulin) See Protocol subcut TIDAC #0 mL 06/12/23 lidocaine 5 % topical patch 1 patch topical DAILY #0 ea 06/12/23 polyethylene glycol 3350 17 gram oral powder packet 17 g PO DAILY #0 ea 06/12/23 acetaminophen 325 mg capsule 325 mg PO Q4H PRN pain 06/19/23 acetaminophen 500 mg tablet (Acetaminophen Extra Strength) 1,000 mg PO QHS PRN pain 06/19/23 enoxaparin 60 mg/0.6 mL subcutaneous syringe 50 mg subcut DAILY 06/19/23 insulin glargine U-300 conc 300 unit/mL (1.5 mL) subcutaneous pen (Toujeo SoloStar U-300 Insulin) 15 unit subcut DAILY 06/19/23 insulin glargine-yfgn 100 unit/mL (3 mL) subcutaneous pen 15 unit subcut DAILY 06/19/23 insulin lispro 100 unit/mL subcutaneous solution (Humalog U-100 Insulin) 17 unit subcut QPM 06/19/23 methocarbamol 500 mg tablet 500 mg PO 4X/DAY PRN PRN Muscle pain/spasm #40 tabs 06/19/23 mirtazapine 15 mg tablet (Remeron) 15 mg PO QHS 06/19/23 oxycodone-acetaminophen 5 mg-325 mg tablet (Percocet) 1 tab PO Q6H PRN pain 7 days #28 tabs 06/19/23 insulin glargine 100 unit/mL (3 mL) subcutaneous pen (Lantus Solostar U-100 Insulin) 15 unit subcut BREAKFAST 06/30/23 insulin glargine 100 unit/mL (3 mL) subcutaneous pen (Lantus Solostar U-100 Insulin) 17 unit subcut QPM 06/30/23 warfarin 4 mg tablet 4 mg PO MOWEFR 06/30/23 warfarin 5 mg tablet 5 mg PO .TUTHSASU BLOOD THINNER 06/30/23 cephalexin 500 mg capsule 500 mg PO Q8H 3 days #9 caps 07/05/23
--- NOTE | 2023-07-05 13:10 | CASEMGMT ---
Discharge Planning Discharge orders, signed med list, and transport time sent to [facility] via [facility]. [facility] will transport patient by cot at 2:30p. Nursing, SW, and patients daughter updated. Adriana Huynh, Discharge Planning Asst.
--- NOTE | 2023-07-05 14:32 | CASEMGMT ---
Discharge Planning CC updated via [facility] that discharge has been cancelled. Adriana Huynh, Discharge Planning Asst.
--- NOTE | 2023-07-05 14:33 | CASEMGMT ---
Patient's discharge was canceled. Adriana d/melva strike planning applications will notify [facility]. Breana Caldwell MSW [place]
[2023-07-05 15:21] LABS: Partial Thromboplast Time 66.3 Seconds (24.1-36.2)
--- NOTE | 2023-07-05 15:22 | PN.HOSP_ITS ---
Subjective Subjective Doing well, no issues overnight Objective Data Objective Data Vital Signs: Vital Signs Temp Pulse Resp BP Pulse Ox O2 Del Method 97.1 F L 91 16 123/66 H 96 Room Air 07/05/23 11:17 07/05/23 14:00 07/05/23 11:17 07/05/23 11:17 07/05/23 11:17 07/05/23 11:17 Oxygen Delivery Method Room Air Weight: 125 lb 3.561 oz Body Mass Index (BMI) 22.8 Intake & Output: Intake and Output for Last 24 Hours 07/04/23 07/05/23 07/06/23 03:59 03:59 03:59 Intake Total 313.73 / 313.73 1145.9 / 1145.9 294.87 / 294.87 Output Total 800 / 800 870 / 870 350 / 350 Balance -486.27 / -486.27 275.9 / 275.9 -55.13 / -55.13 Lab / Micro Data 07/05/23 05:53 07/05/23 05:53 Labs: Laboratory Results - last 24 hr 06/30/23 20:05: Diff Path Review Reviewed 07/01/23 03:26: Diff Path Review Reviewed 07/02/23 03:06: Diff Path Review Reviewed 07/04/23 17:06: POC Glucose 366 H 07/04/23 20:57: POC Glucose 283 H 07/05/23 05:53: WBC 8.2, RBC 3.78 L, Hgb 11.1 L, Hct 36.6 L, MCV 96.8, MCH 29.4, MCHC 30.3 L, RDW Std Deviation 66.6 H, RDW Coeff of Tk 20.3 H, Plt Count 406, MPV 10.1, Differential Comment SCANNED, PT 18.4 H, INR 1.5, APTT 45.5 H, Sodium 134 L, Potassium 4.5, Chloride 105, Carbon Dioxide 20.0 L, Anion Gap 9, BUN 37 H , Creatinine 0.52 L, Estim Creat Clear Calc 38.44, Est GFR (MDRD) Af Amer 147, Est GFR (MDRD) Non-Af 121, BUN/Creatinine Ratio 70.7 H, Glucose 215 H, Calcium 8.4 L, Total Bilirubin 1.20 H, AST 122 H, ALT 157 H, Alkaline Phosphatase 221 H, Total Protein 5.9 L, Albumin 2.0 L, Globulin 3.9, Albumin/Globulin Ratio 0.5 L 07/05/23 10:35: POC Glucose 218 H 07/05/23 14:50: APTT 66.3 H Micro: Microbiology 07/01/23 08:45 Blood Culture (Wb) - Anticubital Right Blood Culture - Preliminary No growth in 48 hours. 07/01/23 13:18 Blood Culture (Wb) - Left Forearm Blood Culture - Preliminary No growth in 48 hours. 06/30/23 23:25 Urine Catheter - Catheter Urine Culture - Final Presumptive E. coli 07/01/23 15:05 Stool Stool Occult Blood (JUDY) - Final Radiography Diagnostic Testing: Radiology Impression Abdomen Ultrasound 07/05/23 07:00 IMPRESSION: Distended gallbladder with gallstones, gallbladder wall thickening and pericholecystic fluid. In the appropriate clinical setting, these findings are consistent with acute cholecystitis and clinical correlation is recommended. Fatty liver. Electronically Signed: Levi Brady MD at 8:22 EST , Rhythm Strip Rhythm Strip: A-fib Rate: 124 Ectopy: None Physical Exam Narrative General: Alert, Oriented x3, Cooperative, No apparent distress HEENT: Atraumatic, PERRLA, EOMI, Normocephalic Oral: Moist Mucosa Neck: Supple, No JVD Lungs: Diminished, Normal air movement, No rhonchi, No wheeze, No rales Cardiovascular: Regular rate, Regular Rhythm, Normal S1, Normal S2, No murmurs Abdomen: Soft, Non Tender, Non-Distended, No Hepato-splenomegaly Extremities: No edema, Capillary Refill Less than 3 Seconds Skin: No rashes, No breakdown Musculoskeletal: Tenderness in both extremities with a recent right periprosthe tic fracture and a left thigh hematoma Neurological: Cranial nerves II-XII grossly intact, Motor Exam 5/5 strength throughout, Sensory exam intact to light touch and pain Psych/Mental Status: Normal Affect, Appropriate Assessment & Plan Assessment/Plan (1) Sepsis: PLAN: Plan 1. Severe sepsis suspected secondary to UTI, improving; lactic acidosis, resolved Patient met sepsis criteria on admission with new MURRAY, leukocytosis, tachycardia, tachypnea and elevated lactate. CT abdomen pelvis showed bilateral nephric stranding which is new compared to prior CT imaging. CT of the hip showed chronic hematoma unclear if change from previous. UA suggestive of infection. Patient fully resuscitated in ED with IV fluids at 30 cc/kg. Never required pressors. Blood cultures pending. Notably, orthopedics evaluated on admission as noted below, no concern for infected left hip, signed off. Inten sivist followed, patient transferred to general medical floor on 07/02, distribution lead signed off. Urine culture results final, grew pansensitive E. coli. Blood cultures with no growth at 48 hours. ? De-escalated to ceftriaxone on 07/03. We will plan to complete 10-day course of antibiotics total, stop date 07/10. Lactic acidosis resolved on 07/01. Christiansen catheter was placed on admission for sepsis, concern for acute urinary retention and accurate monitoring of I/O's. Christiansen catheter discontinued on 07/04, completing voiding trial, monitor urine output. 2. MURRAY, resolved Creatinine 1.83 on admit, baseline creatinine appears to be around 0.3-0.6. Suspected prerenal MURRAY due to sepsis as noted above. Specific gravity of UA suggestive of volume depletion. Volume resuscitated in the ED as above. ? Creatinine improved to 0.71 on 07/01. Continue to monitor BMP daily for now. Treat UTI as noted above. 3. Acute on chronic anemia Hemoglobin 7.4 on admission. Patient was recently hospitalized at the end of May for a fall with periprosthetic hip fracture. Orthopedics followed as bruce sepulveda, recommended nonoperative management. Patient was noted to have a left hip hematoma at that time as well. Patient hemoglobin during that admission was 12- 14. However, post discharge she was noted to have hemoglobin drop from 12.4 on 06/19, to 9.3 on 06/21, to 7.3 on 06/23. Suspect acute hemoglobin drop was most likely due to bleeding into left hip causing left hip hematoma while on Coumadin for anticoagulation. S/p transfusion of 2 units of packed red blood cells on 07/01, repeat hemoglobin 9.6. Notably, iron studies consistent with anemia of chronic disease. ? Continue to monitor CBC daily. Resumed warfarin on 07/02 as noted below. 07/05/2023: Hemoglobin is stable we will continue to monitor 4. Atrial fibrillation with RVR, improving Known history of atrial fibrillation on Coumadin. Developed A-fib with RVR with heart rate to 140s on 07/01, suspected secondary to sepsis and anemia as noted above. Given 1 dose of digoxin during 250 mcg without improvement. Given 1 dose of amiodarone bolus on 07/01 with improvement in rate. ? Heart rate stabilized with treatment of infection as noted above, not on rate control or antiarrhythmic therapy at this point. Monitor telemetry. Continue warfarin. 07/05/2023: We will continue with the heparin drip as there is a little bit of a delay in evaluating her thickened gallbladder wall, will need to obtain a HIDA scan may need cholecystostomy tube 5. Left hip hematoma, history of left total hip replacement in 10/2022 with periprosthetic hip fracture in 05/2023 treated with nonoperative management Recently hospitalized from 06/09 to 06/12 for a fall resulting in periprosthetic hip fracture of repair to the left hip. Orthopedics followed at that time, recommended nonoperative management. Was also noted on imaging to have a left hip hematoma, however blood counts remained stable at that time and orthopedics felt it would tamponade off on its own. ? Repeat CT hip on admission showed continued left hip hematoma. Orthopedics evaluated on 07/01, noted the patient's hematoma was overall stable and patient has no worsening clinical symptoms such as erythema, edema or ecchymosis surrounding the hip. No need for orthopedic intervention at this time. Orthopedics signed off. For previous fracture, continue previous orthopedic recommendations of 2?touch weightbearing to left lower extremity. PT/OT/case management consulted. Pain control medications as needed. 6. History of mitral valve replacement with mechanical valve on Coumadin Therapeutic INR of 2.9 on admission. However, worsened to INR 4.0 on 07/01, Co umadin held. ? INR 2.5 on 07/02, restarted home warfarin given no plans for intervention at this time. Monitor INR daily. 07/05/2023: Coumadin was not restarted we will continue with the heparin drip 7. Hyponatremia, resolved ? Suspected secondary to for p.o. intake recently. Sodium 130 on admit. Resolved on 07/02. Monitor BMP. 8. Thrombocytosis ? Presumed secondary to sepsis as noted above. Monitor. 9. Debility ? Chronic debility in setting of previous of fracture in October requiring repair, followed by recurrent fracture in late May treated with nonoperative management as noted above. PT/OT/case management following. Planning for SNF on discharge. 10. Elevated LFTs, improving Very likely secondary to acute liver injury from ischemia secondary to sepsis as noted above. AST 166, ALT 40, alk phos 218, total bilirubin 2.10 on admit. Peaked at AST 789, ALT 289, alk phos 249 on 07/03. CT abdomen pelvis on 06/30 notably showed cholelithiasis and gallbladder wall thickening, possibly concerning for cholecystitis. Patient has had no right upper quadrant pain specifically since admission. Notably has been treated with antibiotics since admission that would cover typical gram-negative bacteria that cause acute cholecystitis. ? Acute hepatitis panel and right upper quadrant ultrasound ordered on 07/04 to rule out acute RUQ pathology. Continue to trend LFTs. 07/05/2023: On 06/30/[address] scan demonstrating gallbladder wall thickening this was further a while evaluated today with a gallbladder ultrasound that continues to show pericholecystic fluid as well as gallbladder wall thickening. Will obtain a HIDA scan to see if the gallbladder fills if it does not may benefit from a cholecystostomy tube in which case we will continue with the heparin drip. LFTs are improving 11. Uncontrolled type 2 diabetes A1c of 13.6% on 06/15/2023. Was started on insulin at that time. Hyperglycemia on admission with BG 42, improved to normal range with treatment. Home regimen somewhat unclear from records. ? Maintain on sliding scale insulin from admission till 07/04. Appetite improving, glucoses trending upward. Started Lantus 15 units at night, Humalog 5 units with meals plus medium-high dosing of sliding-scale insulin on 07/04. Adjust as needed. Chronic medical conditions: ? Hyperlipidemia: Continue home statin and colestipol. ? GERD: Continue home PPI. ? Vitamin D deficiency: Continue home vitamin D supplement. DVT: Heparin drip Charges/Coding Visit Charges Inpatient E&M: 90279 [facility] Hosp L2
[2023-07-05 16:49] LABS: Bedside Glucose 179 mg/dL (74-106)
[2023-07-05 20:23] LABS: Partial Thromboplast Time 50.5 Seconds (24.1-36.2)
[2023-07-05] MEDS: Insulin Glargine-YFGN 100 UNIT/ML Pen 15 UNIT SC (20:41)
[2023-07-05] MEDS: Mirtazapine 15 MG Tablet PO (20:41)
[2023-07-05] MEDS: DiphenhydrAMINE 25 MG Capsule 50 MG PO (20:47)
[2023-07-05 21:33] LABS: Bedside Glucose 276 mg/dL (74-106)
[2023-07-06] MEDS: oxyCODONE 5 MG Tablet PO (01:39)
[2023-07-06 01:48] VITALS: BMI 22.7
[2023-07-06 03:00] VITALS: BP 110/68; PULSE 87; RESP 16; TEMP 36.5
[2023-07-06 03:03] VITALS: PULSE 87
[2023-07-06 04:29] LABS: Hematocrit 39.4 % (37-47); Mean Corp Hgb Conc 30.5 g/dL (32-36); Mean Corpuscular Hgb 29.9 pg (27.0-32.0); Mean Platelet Vol. 10.5 fl (6.2-12.0); POSITIVE MORPHOLOGY YES; Platelet Count 385 K/mm3 (150-450); RBC Distribution Width SD 68.6 fl (35.1-43.9); Red Blood Count 4.02 M/mm3 (4.2-5.4)
[2023-07-06 04:44] LABS: Scan Indicated on CBC? Y/N YES- FLAGS NOTED
[2023-07-06 04:46] LABS: Differential Comment SCANNED
[2023-07-06 04:49] LABS: Partial Thromboplast Time 82.4 Seconds (24.1-36.2)
[2023-07-06 04:52] LABS: ALB/GLOB Ratio 0.5 RATIO (0.9-2.4); AST(SGOT) 70 U/L (15-37); Alanine Aminotransfer ALT/SGPT 122 U/L (13-56); Alkaline Phosphatase 209 U/L (45-117); Anion Gap 9 (5-15); BUN 36 mg/dL (7-18); BUN/Creat Ratio 68.2 RATIO (10-20); Calcium,Total 8.4 mg/dL (8.5-10.1); Chloride 106 mmol/L (98-107); Creatinine, Serum 0.53 mg/dL (0.55-1.02); EST Glomerular Filtration Rate 120 mL/min (>60); Est Glom Filt Rate - Afr Amer 145 mL/min (>60); Estimated Creatinine Clearance 38.44 ml/min; Globulin 3.8 g/dL (2.2-4.2); Glucose 215 mg/dL (74-106); Potassium 4.5 mmol/L (3.5-5.1); Protein, Total 5.8 g/dL (6.4-8.2); Sodium Level 136 mmol/L (136-145)
[2023-07-06 05:06] LABS: International Normalized Ratio 1.3
[2023-07-06 05:07] LABS: HEPATITIS B SURFACE AG Negative (Negative); Hep C Antibodies Non Reactive (Non Reactive); Hepatitis A IgM Antibody Negative (Negative); Hepatitis B Core AB IgM Negative (Negative)
[2023-07-06 06:19] LABS: Bedside Glucose 212 mg/dL (74-106)
--- NOTE | 2023-07-06 07:15 | NM_ITS ---
CLINICAL: 73-year-old female with history of cholelithiasis and gallbladder wall thickening. RADIONUCLIDE HEPATOBILIARY SCINTIGRAPHY COMPARISON: Abdominal ultrasound report 07/05/2023 FINDINGS: Following the intravenous administration of 5.2 mCi of 99m Tc Mebrofenin, hepatobiliary images reveal: 1. Relatively prompt and homogeneous radiopharmaceutical concentration is noted by a normal sized liver. No parenchymal defects are identified. 2. Gallbladder activity is identified at 21 minutes post radiopharmaceutical administration. 3. Small intestinal tract is not visualized during 60 minutes of sequential imaging acquisition. Small bowel is observed at 105 minutes following tracer injection. 4. Washout of the radiopharmaceutical by the hepatic parenchyma appears qualitatively delayed. NM/Hepatobilliary Imaging IMPRESSION: 1. Visualization of the gallbladder within 60 minutes post radiopharmaceutical administration excludes acute cholecystitis with 97% certitude. (Matti et al, Nucl Med [employer] pg. 35, 1981). 2. Delayed small bowel demonstration (> 60 minutes) may represent partial common bile duct obstruction in the appropriate clinical setting. (Keena et al, Semin Nucl Med 12: 53, 1982). 3. 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 Electronically Signed: Chilo Foss DO at 10:20 EST ,
[2023-07-06 09:50] VITALS: BP 108/57; PULSE 93; RESP 16; TEMP 36.6; O2SAT 96
[2023-07-06 09:52] LABS: Pathologist Review Reviewed
[2023-07-06] MEDS: Lidocaine 5% Patch 1 PATCH TOPICAL (09:57)
[2023-07-06] MEDS: Insulin Lispro 100 UNIT/ML INSULN.PEN SC ×5 (09:58→15:51)
[2023-07-06] MEDS: Pantoprazole Sodium 40 MG Tablet PO ×2 (09:59→22:31)
[2023-07-06] MEDS: Gemfibrozil 600 MG Tablet PO ×2 (09:59→15:52)
[2023-07-06] MEDS: Cholecalciferol (VIT D3) 25 MCG TABLET (1,000 UNITS) 50 MCG PO (09:59)
[2023-07-06] MEDS: Atenolol 50 MG Tablet PO (09:59)
[2023-07-06] MEDS: Colestipol 1 GM TABLET PO (09:59)
[2023-07-06] MEDS: Glucerna Shake 120 ML LIQUID PO (10:00)
[2023-07-06] MEDS: Ceftriaxone 1 GM/50 ML BAG IV (10:11)
[2023-07-06] MEDS: 0.9% Saline Lock 10 ML Syringe IV (10:11)
[2023-07-06] MEDS: 0.9% Normal Saline (250mL Bag) 250 ML 15 ML IV (10:11)
[2023-07-06 11:02] LABS: Bedside Glucose 221 mg/dL (74-106)
[2023-07-06 11:10] LABS: Partial Thromboplast Time 52.1 Seconds (24.1-36.2)
[2023-07-06] MEDS: Heparin Injection (Vial) 5,000 UNIT/ML VIAL IV (11:18)
[2023-07-06] MEDS: HEPARIN/D5w 25,000 UNITS 25,000 UNITS/250 ML IV.SOLN. 8 UNITS CONT INF (12:07)
[2023-07-06 13:57] LABS: Bedside Glucose 175 mg/dL (74-106)
[2023-07-06 16:00] VITALS: BP 115/67; PULSE 86; RESP 16; TEMP 36.4; O2SAT 98
--- NOTE | 2023-07-06 16:12 | CASEMGMT ---
Discharge Planning Updates sent to [facility] via [facility]. Adriana Huynh, Discharge Planning Asst.
[2023-07-06 16:32] LABS: Bedside Glucose 229 mg/dL (74-106)
--- NOTE | 2023-07-06 16:56 | PN.HOSP_ITS ---
Subjective Subjective Doing well, no issues overnight. No abdominal pain tolerating a diet. Objective Data Objective Data Vital Signs: Vital Signs Temp Pulse Resp BP Pulse Ox O2 Del Method 97.5 F L 86 16 115/67 98 Room Air 07/06/23 16:00 07/06/23 16:00 07/06/23 16:00 07/06/23 16:00 07/06/23 16:00 07/06/23 16:00 Oxygen Delivery Method Room Air Weight: 124 lb 5.451 oz Body Mass Index (BMI) 22.7 Intake & Output: Intake and Output for Last 24 Hours 07/05/23 07/06/23 07/07/23 03:59 03:59 03:59 Intake Total 1145.9 / 1145.9 805.17 / 805.17 362.57 / 362.57 Output Total 870 / 870 950 / 950 650 / 650 Balance 275.9 / 275.9 -144.83 / -144.83 -287.43 / -287.43 Lab / Micro Data 07/06/23 03:50 07/06/23 03:50 Labs: Laboratory Results - last 24 hr 07/01/23 18:00: Diff Path Review Reviewed 07/05/23 05:53: Hepatitis A IgM Ab Negative, Hep Bs Antigen Negative, Hep B Core IgM Ab Negative, Hepatitis C Ab (EIA) Non Reactive, Hep C Ab Comment Comment 07/05/23 20:06: APTT 50.5 H 07/05/23 20:34: POC Glucose 276 H 07/06/23 03:50: WBC 8.0, RBC 4.02 L, Hgb 12.0, Hct 39.4, MCV 98.0, MCH 29.9, MCHC 30.5 L, RDW Std Deviation 68.6 H, RDW Coeff of Tk 20.0 H, Plt Count 385, MPV 10.5, Differential Comment SCANNED, PT 16.0 H, INR 1.3, APTT 82.4 H, Sodium 136, Potassium 4.5, Chloride 106, Carbon Dioxide 21.0, Anion Gap 9, BUN 36 H, Creatinine 0.53 L, Estim Creat Clear Calc 38.44, Est GFR (MDRD) Af Amer 145, Est GFR (MDRD) Non-Af 120, BUN/Creatinine Ratio 68.2 H, Glucose 215 H, Calcium 8.4 L , Total Bilirubin 1.40 H, AST 70 H, ALT 122 H, Alkaline Phosphatase 209 H, Total Protein 5.8 L, Albumin 2.0 L, Globulin 3.8, Albumin/Globulin Ratio 0.5 L 07/06/23 06:02: POC Glucose 212 H 07/06/23 09:51: POC Glucose 221 H 07/06/23 10:53: APTT 52.1 H 07/06/23 12:11: POC Glucose 175 H 07/06/23 15:50: POC Glucose 229 H Micro: Microbiology 07/01/23 13:18 Blood Culture (Wb) - Left Forearm Blood Culture - Final No growth in 5 days. 07/01/23 08:45 Blood Culture (Wb) - Anticubital Right Blood Culture - Final No growth in 5 days. 06/30/23 23:25 Urine Catheter - Catheter Urine Culture - Final Presumptive E. coli 07/01/23 15:05 Stool Stool Occult Blood (JUDY) - Final Radiography Diagnostic Testing: Radiology Impression Hepatobiliary Scan Nuclear Medicine 07/06/23 07:15 IMPRESSION: 1. Visualization of the gallbladder within 60 minutes post radiopharmaceutical administration excludes acute cholecystitis with 97% certitude. (Matti et al, Nucl Med [employer] pg. 35, 1981). 2. Delayed small bowel demonstration (> 60 minutes) may represent partial common bile duct obstruction in the appropriate clinical setting. (Lisa, Semin Nucl Med 12: 53, 1982). 3. 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 Electronically Signed: Chilo Foss DO at 10:20 EST , Rhythm Strip Rhythm Strip: A-fib Rate: 124 Ectopy: None Physical Exam Narrative General: Alert, Oriented x3, Cooperative, No apparent distress HEENT: Atraumatic, PERRLA, EOMI, Normocephalic Oral: Moist Mucosa Neck: Supple, No JVD Lungs: Diminished, Normal air movement, No rhonchi, No wheeze, No rales Cardiovascular: Regular rate, Regular Rhythm, Normal S1, Normal S2, No murmurs Abdomen: Soft, Non Tender, Non-Distended, No Hepato-splenomegaly Extremities: No edema, Capillary Refill Less than 3 Seconds Skin: No rashes, No breakdown Musculoskeletal: Tenderness in both extremities with a recent right periprosthetic fracture and a left thigh hematoma Neurological: Cranial nerves II-XII grossly intact, Motor Exam 5/5 strength throughout, Sensory exam intact to light touch and pain Psych/Mental Status: Normal Affect, Appropriate Assessment & Plan Assessment/Plan (1) Sepsis: PLAN: Plan 1. Severe sepsis suspected secondary to E. coli UTI, improving; lactic acidosis, resolved Patient met sepsis criteria on admission with new MURRAY, leukocytosis, tachycardia, tachypnea and elevated lactate. CT abdomen pelvis showed bilateral nephric stranding which is new compared to prior CT imaging. CT of the hip showed chronic hematoma unclear if change from previous. UA suggestive of i nfection. Patient fully resuscitated in ED with IV fluids at 30 cc/kg. Never required pressors. Blood cultures pending. Notably, orthopedics evaluated on admission as noted below, no concern for infected left hip, signed off. [employer] Team Member followed, patient transferred to general medical floor on 07/02, schedule manager signed off. Urine culture results final, grew pansensitive E. coli. Blood cultures with no growth at 48 hours. ? De-escalated to ceftriaxone on 07/03. We will plan to complete 10-day course of antibiotics total, stop date 07/10. Lactic acidosis resolved on 07/01. Christiansen catheter was placed on admission for sepsis, concern for acute urinary retention and accurate monitoring of I/O's. Christiansen catheter discontinued on 07/04, completing voiding trial, monitor urine output. 07/06/2023: Continue with Rocephin for her E. coli UTI 2. MURRAY, resolved Creatinine 1.83 on admit, baseline creatinine appears to be around 0.3-0.6. Suspected prerenal MURRAY due to sepsis as noted above. Specific gravity of UA suggestive of volume depletion. Volume resuscitated in the ED as above. ? Creatinine improved to 0.71 on 07/01. Continue to monitor BMP daily for now. Treat UTI as noted above. 3. Acute on chronic anemia Hemoglobin 7.4 on admission. Patient was recently hospitalized at the end of May for a fall with periprosthetic hip fracture. Orthopedics followed as below, recommended nonoperative management. Patient was noted to have a left hip hematoma at that time as well. Patient hemoglobin during that admission was 12-14. However, post discharge she was noted to have hemoglobin drop from 12.4 on 06/19, to 9.3 on 06/21, to 7.3 on 06/23. Suspect acute hemoglobin drop was most likely due to bleeding into left hip causing left hip hematoma while on Coumadin for anticoagulation. S/p transfusion of 2 units of packed red blood cells on 07/01, repeat hemoglobin 9.6. Notably, iron studies consistent with anemia of chronic disease. ? Continue to monitor CBC daily. Resumed warfarin on 07/02 as noted below. 07/05/2023: Hemoglobin is stable we will continue to monitor 4. Atrial fibrillation with RVR, improving Known history of atrial fibrillation on Coumadin. Developed A-fib with RVR with heart rate to 140s on 07/01, suspected secondary to sepsis and anemia as noted above. Given 1 dose of digoxin during 250 mcg without improvement. Given 1 dose of amiodarone bolus on 07/01 with improvement in rate. ? Heart rate stabilized with treatment of infection as noted above, not on rate control or antiarrhythmic therapy at this point. Monitor telemetry. Continue warfarin. 07/05/2023: We will continue with the heparin drip as there is a little bit of a delay in evaluating her thickened gallbladder wall, will need to obtain a HIDA scan may need cholecystostomy tube 5. Left hip hematoma, history of left total hip replacement in 10/2022 with periprosthetic hip fracture in 05/2023 treated with nonoperative management Recently hospitalized from 06/09 to 06/12 for a fall resulting in periprosthetic hip fracture of repair to the left hip. Orthopedics followed at that time, recommended nonoperative management. Was also noted on imaging to have a left hip hematoma, however blood counts remained stable at that time and orthopedics felt it would tamponade off on its own. ? Repeat CT hip on admission showed continued left hip hematoma. Orthopedics evaluated on 07/01, noted the patient's hematoma was overall stable and patient has no worsening clinical symptoms such as erythema, edema or ecchymosis surrounding the hip. No need for orthopedic intervention at this time. Orthopedics signed off. For previous fracture, continue previous orthopedic recommendations of toe?touch weightbearing to left lower extremity. PT/OT/case management consulted. Pain control medications as needed. 6. History of mitral valve replacement with mechanical valve on Coumadin Therapeutic INR of 2.9 on admission. However, worsened to INR 4.0 on 07/01, Coumadin held. ? INR 2.5 on 07/02, restarted home warfarin given no plans for intervention at this time. Monitor INR daily. 07/05/2023: Coumadin was not restarted we will continue with the heparin drip 07/06/2023: She will need to bridge with Lovenox and Coumadin on discharge 7. Hyponatremia, resolved ? Suspected secondary to for p.o. intake recently. Sodium 130 on admit. Resolved on 07/02. Monitor BMP. 8. Thrombocytosis ? Presumed secondary to sepsis as noted above. Monitor. 9. Debility ? Chronic debility in setting of previous of fracture in October requiring repair, followed by recurrent fracture in late May treated with nonoperative management as noted above. PT/OT/case management following. Planning for SNF on discharge. 10. Elevated LFTs, improving Very likely secondary to acute liver injury from ischemia secondary to sepsis as noted above. AST 166, ALT 40, alk phos 218, total bilirubin 2.10 on admit. Peaked at AST 789, ALT 289, alk phos 249 on 07/03. CT abdomen pelvis on 06/30 notably showed cholelithiasis and gallbladder wall thickening, possibly concerning for cholecystitis. Patient has had no right upper quadrant pain specifically since admission. Notably has been treated with antibiotics since admission that would cover typical gram-negative bacteria that cause acute cholecystitis. ? Acute hepatitis panel and right upper quadrant ultrasound ordered on 07/04 to rule out acute RUQ pathology. Continue to trend LFTs. 07/05/2023: On 06/30/[address] scan demonstrating gallbladder wall thickening this was further a while evaluated today with a gallbladder ultrasound that continues to show pericholecystic fluid as well as gallbladder wall thickening. Will obtain a HIDA scan to see if the gallbladder fills if it does not may benefit from a cholecystostomy tube in which case we will continue with the heparin drip. LFTs are improving 07/06/2023: HIDA scan demonstrated uptake in the gallbladder consistent with no cholecystitis however there was a delay in entering the small bowel therefore we will need to proceed with an MRCP to rule out a distal common bile duct obstruction 11. Uncontrolled type 2 diabetes A1c of 13.6% on 06/15/2023. Was started on insulin at that time. Hyperglycemia on admission with BG 42, improved to normal range with treatment. Home regimen somewhat unclear from records. ? Maintain on sliding scale insulin from admission till 07/04. Appetite improving, glucoses trending upward. Started Lantus 15 units at night, Humalog 5 units with meals plus medium-high dosing of sliding-scale insulin on 07/04. Adjust as needed. Chronic medical conditions: ? Hyperlipidemia: Continue home statin and colestipol. ? GERD: Continue home PPI. ? Vitamin D deficiency: Continue home vitamin D supplement. DVT: Heparin drip Charges/Coding Visit Charges Inpatient E&M: 24290 [facility] Hosp L2
--- NOTE | 2023-07-06 17:58 | NURSING ---
Heparin gtt placed on pause for MRI
[2023-07-06 17:59] LABS: Partial Thromboplast Time 71.2 Seconds (24.1-36.2)
[2023-07-06 22:22] VITALS: BP 103/62; PULSE 77; RESP 16; TEMP 36.5; O2SAT 96
[2023-07-06] MEDS: Insulin Glargine-YFGN 100 UNIT/ML Pen 15 UNIT SC (22:28)
[2023-07-06] MEDS: Mirtazapine 15 MG Tablet PO (22:31)
[2023-07-06] MEDS: DiphenhydrAMINE 25 MG Capsule 50 MG PO (22:33)
[2023-07-06 23:01] LABS: Bedside Glucose 211 mg/dL (74-106)
[2023-07-07 00:24] LABS: Partial Thromboplast Time 65.1 Seconds (24.1-36.2)
[2023-07-07 04:00] VITALS: BP 98/66; PULSE 88; RESP 16; TEMP 36.1; O2SAT 98
[2023-07-07 06:00] VITALS: BMI 24.7
[2023-07-07] MEDS: Gemfibrozil 600 MG Tablet PO (06:34)
[2023-07-07 06:54] LABS: Bedside Glucose 179 mg/dL (74-106)
[2023-07-07 07:31] LABS: Hemoglobin 11.8 g/dL (12.0-15.0); Mean Corp Hgb Conc 30.3 g/dL (32-36); Mean Corpuscular Hgb 30.1 pg (27.0-32.0); Mean Corpuscular Volume 99.5 fL (81-99); Mean Platelet Vol. 10.2 fl (6.2-12.0); POSITIVE MORPHOLOGY YES; Platelet Count 332 K/mm3 (150-450); RBC Distribution Width CV 20.6 % (11.6-14.6); RBC Distribution Width SD 69.4 fl (35.1-43.9); Red Blood Count 3.92 M/mm3 (4.2-5.4); White Blood Count 6.6 K/mm3 (4.4-11.0)
[2023-07-07 07:34] LABS: Scan Indicated on CBC? Y/N YES- FLAGS NOTED
[2023-07-07 07:55] LABS: ALB/GLOB Ratio 0.5 RATIO (0.9-2.4); AST(SGOT) 53 U/L (15-37); Alanine Aminotransfer ALT/SGPT 94 U/L (13-56); Albumin, Serum 1.9 g/dL (3.2-5.0); Alkaline Phosphatase 191 U/L (45-117); Anion Gap 6 (5-15); BUN 30 mg/dL (7-18); BUN/Creat Ratio 54.2 RATIO (10-20); Calcium,Total 8.5 mg/dL (8.5-10.1); Chloride 109 mmol/L (98-107); Creatinine, Serum 0.55 mg/dL (0.55-1.02); EST Glomerular Filtration Rate 113 mL/min (>60); Est Glom Filt Rate - Afr Amer 137 mL/min (>60); Estimated Creatinine Clearance 38.44 ml/min; Globulin 3.8 g/dL (2.2-4.2); Glucose 204 mg/dL (74-106); Potassium 4.7 mmol/L (3.5-5.1); Protein, Total 5.7 g/dL (6.4-8.2); Sodium Level 137 mmol/L (136-145)
[2023-07-07 08:15] LABS: Partial Thromboplast Time 46.4 Seconds (24.1-36.2)
[2023-07-07] MEDS: Insulin Lispro 100 UNIT/ML INSULN.PEN SC ×2 (08:36→11:42)
[2023-07-07] MEDS: Insulin Lispro 100 UNIT/ML INSULN.PEN 10 UNIT SC ×2 (08:37→11:42)
[2023-07-07 09:02] LABS: Bedside Glucose 181 mg/dL (74-106)
--- NOTE | 2023-07-07 09:32 | CASEMGMT ---
Discharge Planning Message sent to [facility] via [facility] to check on status of precert extension. Awaiting response. Adriana Huynh, Discharge Planning Asst.
[2023-07-07] MEDS: 0.9% Saline Lock 10 ML Syringe IV (10:35)
[2023-07-07] MEDS: Ceftriaxone 1 GM/50 ML BAG IV (10:35)
[2023-07-07 10:40] VITALS: BP 119/72; PULSE 88; RESP 16; TEMP 37.1; O2SAT 98
[2023-07-07] MEDS: Colestipol 1 GM TABLET PO (10:40)
[2023-07-07] MEDS: Cholecalciferol (VIT D3) 25 MCG TABLET (1,000 UNITS) 50 MCG PO (10:41)
[2023-07-07] MEDS: Pantoprazole Sodium 40 MG Tablet PO (10:41)
[2023-07-07] MEDS: Atenolol 50 MG Tablet PO (10:41)
[2023-07-07] MEDS: Lidocaine 5% Patch 1 PATCH TOPICAL (10:41)
[2023-07-07] MEDS: Heparin Injection (Vial) 5,000 UNIT/ML VIAL IV (10:48)
[2023-07-07] MEDS: Insulin Glargine-YFGN 100 UNIT/ML Pen 15 UNIT SC (11:42)
[2023-07-07 12:07] LABS: Bedside Glucose 155 mg/dL (74-106)
[2023-07-07] MEDS: oxyCODONE 5 MG Tablet PO (12:58)
[2023-07-07] MEDS: Acetaminophen 500 MG Tablet 1000 MG PO (14:58)
--- NOTE | 2023-07-07 15:07 | PCM.DC.SUM ---
Providers Date of Admission: 07/01/23 Primary Care Physician: Dr. Gwen David MD Consultations 07/01/23 03:05 Consult: Laboratory Chemical Assistant / Pulmonary Medicine Routine Consulting Provider: Pulmonary Medicine rin Jackson Reason for Consult: sepsis EMERGENT Consult: No Notified: Yes Date Notified: 07/01/23 Time Notified: 03:37 Method of Notification: Text Consult: Orthopedics Routine Consulting Provider: Apollo Loyd Reason for Consult: PKTY with large effusion/hematoma EMERGENT Consult: No Notified: Yes Date Notified: 07/01/23 Time Notified: 08:54 Method of Notification: Verbal Reason For Visit: SEPSIS Diagnosis Discharge Diagnosis (1) Sepsis: Status: Acute Code(s): A41.9 - Sepsis, unspecified organism Medications at Discharge Home Medications gemfibrozil 600 mg tablet (Lopid) 600 mg PO BIDAC CHOLESTEROL 07/10/13 atorvastatin 40 mg tablet 40 mg PO DAILY CHOLESTEROL 12/21/17 meclizine 12.5 mg tablet 12.5 mg PO TID PRN DIZZINESS 09/30/20 cholecalciferol (vitamin D3) 50 mcg (2,000 unit) capsule (Vitamin D3) 50 mcg PO DAILY SUPPLEMENT 10/14/22 diphenhydramine HCl 25 mg capsule (Benadryl) 50 mg PO QHS SLEEP 10/14/22 colestipol 1 gram tablet (Colestid) 1 g PO DAILY CHOLESTEROL 03/24/23 metformin 500 mg tablet,extended release 24 hr 1,000 mg PO BID BLOOD SUGARS 06/09/23 omeprazole 40 mg capsule,delayed release 40 mg PO BID ACID REFLUX 06/09/23 Remove Patch 1 patch topical DAILY@2200 ##0 06/12/23 insulin lispro 100 unit/mL subcutaneous pen (Humalog KwikPen (U-100) Insulin) See Protocol subcut TIDAC #0 mL 06/12/23 lidocaine 5 % topical patch 1 patch topical DAILY #0 ea 06/12/23 polyethylene glycol 3350 17 gram oral powder packet 17 g PO DAILY #0 ea 06/12/23 acetaminophen 325 mg capsule 325 mg PO Q4H PRN pain 06/19/23 acetaminophen 500 mg tablet (Acetaminophen Extra Strength) 1,000 mg PO QHS PRN pain 06/19/23 enoxaparin 60 mg/0.6 mL subcutaneous syringe 50 mg subcut DAILY 06/19/23 insulin glargine U-300 conc 300 unit/mL (1.5 mL) subcutaneous pen (Toujeo SoloStar U-300 Insulin) 15 unit subcut DAILY 06/19/23 insulin glargine-yfgn 100 unit/mL (3 mL) subcutaneous pen 15 unit subcut DAILY 06/19/23 insulin lispro 100 unit/mL subcutaneous solution (Humalog U-100 Insulin) 17 unit subcut QPM 06/19/23 methocarbamol 500 mg tablet 500 mg PO 4X/DAY PRN PRN Muscle pain/spasm #40 tabs 06/19/23 mirtazapine 15 mg tablet (Remeron) 15 mg PO QHS 06/19/23 oxycodone-acetaminophen 5 mg-325 mg tablet (Percocet) 1 tab PO Q6H PRN pain 7 days #28 tabs 06/19/23 insulin glargine 100 unit/mL (3 mL) subcutaneous pen (Lantus Solostar U-100 Insulin) 15 unit subcut BREAKFAST 06/30/23 insulin glargine 100 unit/mL (3 mL) subcutaneous pen (Lantus Solostar U-100 Insulin) 17 unit subcut QPM 06/30/23 warfarin 4 mg tablet 4 mg PO MOWEFR 06/30/23 warfarin 5 mg tablet 5 mg PO .TUTHSASU BLOOD THINNER 06/30/23 cephalexin 500 mg capsule 500 mg PO Q8H 3 days #9 caps 07/05/23 Hospital Course Operations None Procedures None Summary of Care Provided Minutes Spent on Discharge: 37 Hospital Course: Per HPI: MACIEL BUCIO, is a 73 F who presented to department at [facility] on 06/30/2023 with multiple complaints however it was hard to pin her down on anyone. She has a history of chronic chest pain but she reports that it was a little bit worse in the last few days. She complains of worsening hip pain on the left side compared to when she presented after her acute fracture. She states she has been eating and drinking well especially in the last 2 weeks she is been trying to eat everything and drink everything on her tray when it comes to her. She is motivated to get back home. She is overall an extremely poor historian and is unable to give me a lot of information on how she is feeling or what has been going on. Vital signs on presentation show a temperature of 97.9, heart rate 103, blood pressure is 89/56, respiratory rate has been anywhere from 14-25 and oxygen saturations are 95 to 99% on room air. Her CBC shows a leukocytosis with a white count of 15.1, and hemoglobin of 7.4 which is trending down, platelet count of 695,000, she has a left shift with 75% neutrophilia and 6% bands. Her INR is 2.9 and she is on Coumadin for mechanical mitral valve with a goal INR of 2.5-3.5. Her chemistry panel reveals new hyponatremia with a sodium of 130, potassium of 6.0 at a repeat of 5.6 after IV fluids, BUN of 80 and a serum creatinine of 1.83 which is markedly above her baseline of 0.35-0.65. Her blood glucose was 43. Initial lactate was 3.0. CK was 282. Her urine is suggestive of infection having leuk esterase, white cells, and 4+ bacteria. CT of her abdomen pelvis showed bilateral perinephritic stranding which is new and I suspect is related to her acute UTI, cholelithiasis with gallbladder wall thickening, partial visualization of a large left hip effusion versus hematoma, small right pleural effusion and a stable T12 compression fracture. EKG shows A-fib with RVR but no ischemic changes. Hospital Course: 1. Severe sepsis secondary to E. coli UTI/MURRAY/acute on chronic anemia?73-year-old female presented to the hospital with mild abdominal pain as well as continued leg pain due to her left thigh hematoma. Her urine culture ultimately demonstrated a pansensitive E. coli and she was on Rocephin and then on discharge was transition to Keflex. I discussed with her the plan for discharge today she expressed understanding of the risk benefits of going to SNF and she would like to go today to start her rehab. Her renal function did normalize prior to discharge. Of note on admission her hemoglobin was 7.4 and at the end of May she was hospitalized for a left thigh hematoma she did have 2 units of PRBCs on 111 and her hemoglobin has ultimately improved to 11.8 on the day of discharge. would recommend continued monitoring at the [facility]. 2. A-fib/mitral valve repair/left hip hematoma?she is on Coumadin and this was held and she was transitioned to a heparin drip because of her recent hematoma her INR on the day of discharge was 1.3. Given her bleeding risk I elected to not bridge her into just restart her on Coumadin with INR follow-up while at the SNF to adjust dosage if needed. She did develop RVR during her hospitalization however this resolved prior to discharge. 3. Elevated LFTs?she was found to have elevated LFTs as well as a finding of gallbladder wall thickening on admission. CT of her abdomen and pelvis demonstrated this on the day of admission. On the an ultrasound was ordered that demonstrated continued gallbladder wall thickening with pericholecystic fluid so HIDA scan was performed which did show filling of the gallbladder effectively ruling out cholecystitis however it did show a delay in the contrast entering the small bowel so there is concern for a distal biliary duct stone. An MRCP was ordered and initially she stated that she did not have claustrophobia however the imaging study had to be cut short because of severe claustrophobia. We attempted to get another MRCP today on the day of discharge with the assistance of Ayanna however she refused. LFTs are improving and I discussed with her that if we do not obtain the MRCP she may end up back in the hospital because of an etiology we are not aware of yet. She was vehement about not pursuing the MRCP and demanded to be discharged today 4. Type 2 diabetes, hyperlipidemia, vitamin D deficiency, GERD are chronic medical conditions which complicate her care. Her home medications were continued where appropriate Physical Exam Narrative General: Alert, Oriented x3, Cooperative, No apparent distress HEENT: Atraumatic, PERRLA, EOMI, Normocephalic Oral: Moist Mucosa Neck: Supple, No JVD Lungs: Diminished, Normal air movement, No rhonchi, No wheeze, No rales Cardiovascular: Regular rate, Regular Rhythm, Normal S1, Normal S2, No murmurs Abdomen: Soft, Non Tender, Non-Distended, No Hepato-splenomegaly Extremities: No edema, Capillary Refill Less than 3 Seconds Skin: No rashes, No breakdown Musculoskeletal: Tenderness in both extremities with a recent right periprosthetic fracture and a left thigh hematoma Neurological: Cranial nerves II-XII grossly intact, Motor Exam 5/5 strength throughout, Sensory exam intact to light touch and pain Psych/Mental Status: Normal Affect, Appropriate Weight / BMI Weight Weight: 134 lb 7.712 oz Body Mass Index (BMI) 24.7 ABG / Lab / Microbiology Data 07/07/23 07:00 07/07/23 07:00 Laboratory: Laboratory Results - last 24 hr 07/06/23 15:50: POC Glucose 229 H 07/06/23 17:30: APTT 71.2 H 07/06/23 22:28: POC Glucose 211 H 07/06/23 23:47: APTT 65.1 H 07/07/23 06:34: POC Glucose 179 H 07/07/23 07:00: WBC 6.6, RBC 3.92 L, Hgb 11.8 L, Hct 39.0, MCV 99.5 H, MCH 30.1, MCHC 30.3 L, RDW Std Deviation 69.4 H, RDW Coeff of Tk 20.6 H, Plt Count 332, MPV 10.2, Differential Comment COMMENT, APTT 46.4 H, Sodium 137, Potassium 4.7, Chloride 109 H, Carbon Dioxide 22.0, Anion Gap 6, BUN 30 H, Creatinine 0.55, Estim Creat Clear Calc 38.44, Est GFR (MDRD) Af Amer 137, Est GFR (MDRD) Non-Af 113, BUN/Creatinine Ratio 54.2 H, Glucose 204 H, Calcium 8.5, Total Bilirubin 1.20 H, AST 53 H, ALT 94 H, Alkaline Phosphatase 191 H, Total Protein 5.7 L, Albumin 1.9 L, Globulin 3.8, Albumin/Globulin Ratio 0.5 L 07/07/23 08:34: POC Glucose 181 H 07/07/23 11:40: POC Glucose 155 H Microbiology: Microbiology 07/01/23 13:18 Blood Culture (Wb) - Left Forearm Blood Culture - Final No growth in 5 days. 07/01/23 08:45 Blood Culture (Wb) - Anticubital Right Blood Culture - Final No growth in 5 days. 06/30/23 23:25 Urine Catheter - Catheter Urine Culture - Final Presumptive E. coli 07/01/23 15:05 Stool Stool Occult Blood (JUDY) - Final Meaningful Use Info Meaningful Use Diagnoses (Choose all that apply): None applicable Discharge Plan Admission Admit Date/Time: 07/01/23 01:10 Attending Provider: Apollo sHu Primary Care Provider: Gwen David Consulting Providers: Monique Angel; Apollo Loyd; Km Serna Discharge Orders/Prescriptions Prescriptions: New cephalexin 500 mg capsule 500 mg PO Q8H 3 Days Qty: 9 0RF Continued atorvastatin 40 mg tablet 40 mg PO DAILY colestipol [Colestid] 1 gram tablet 1 g PO DAILY gemfibrozil [Lopid] 600 MG tablet 600 mg PO BIDAC diphenhydramine HCl [Benadryl] 25 mg Capsule 50 mg PO QHS cholecalciferol (vitamin D3) [Vitamin D3] 50 mcg (2,000 unit) Capsule 50 mcg PO DAILY omeprazole 40 mg capsule,delayed release(DR/EC) 40 mg PO BID insulin lispro [Humalog KwikPen Insulin] 100 unit/mL Insulin Pen See Protocol subcut TIDAC Qty: 0 0RF Protocol: 4. Sliding Scale Insulin High-Med Dosing Condition: 150-199 mg/dl = 2 units Condition: 200-259 mg/dl = 4 units Condition: 260-324 mg/dl = 6 units Condition: 325-374 mg/dl = 8 units Condition: 375-409 mg/dl = 10 units Condition: 410-449 mg/dl = 11 units Condition: Greater than 449 call physician Protocol Text: - Use for Total Daily Dose of Insulin 56-80 units - Patient who are insulin resistant or septic HIGH MEDIUM DOSING ALGORITHM polyethylene glycol 3350 17 gram Powder In Packet 17 g PO DAILY Qty: 0 0RF lidocaine 5 % Adhesive Patch,Medicated 1 patch topical DAILY Qty: 0 0RF Protocol: *Topical Application Instructions APPLICATION INSTRUCTIONS: right hip Remove Patch 1 patch topical DAILY@2200 Qty: 0 0RF acetaminophen [Acetaminophen Extra Strength] 500 mg tablet 1,000 mg PO QHS PRN (Reason: pain) acetaminophen 325 mg capsule 325 mg PO Q4H PRN (Reason: pain) Patient Comments: DO NO EXCEED 4GM IN 24H insulin lispro [Humalog U-100 Insulin] 100 unit/mL solution 17 unit subcut QPM Hold Instructions: Duplicate Order mirtazapine [Remeron] 15 mg tablet 15 mg PO QHS insulin glargine-yfgn 100 unit/mL (3 mL) Insulin Pen 15 unit subcut DAILY Hold Instructions: Order Changed Rx Instructions: EACH AM enoxaparin 60 mg/0.6 mL syringe 50 mg subcut DAILY oxycodone-acetaminophen [Percocet] 5-325 mg tablet 1 tab PO Q6H PRN (Reason: pain) 7 Days Qty: 28 0RF methocarbamol 500 mg tablet 500 mg PO 4X/DAY PRN PRN (Reason: Muscle pain/spasm) Qty: 40 0RF warfarin 4 mg tablet 4 mg PO MOWEFR insulin glargine [Lantus Solostar U-100 Insulin] 100 unit/mL (3 mL) insulin pen 17 unit subcut QPM insulin glargine [Lantus Solostar U-100 Insulin] 100 unit/mL (3 mL) insulin pen 15 unit subcut BREAKFAST warfarin 5 mg tablet 5 mg PO .TUTHSASU Protocol: Dose Management Condition: Wednesday Dose/Route: 5 mg Instruction: 1 x 5 mg tablet Condition: Wednesday Dose/Route: 7.5 mg Instruction: 1.5 x 5 mg tablets Condition: Wednesday Dose/Route: 7.5 mg Instruction: 1.5 x 5 mg tablets Condition: Wednesday Dose/Route: 5 mg Instruction: 1 x 5 mg tablet Condition: Dose/Route: 5 mg Instruction: 1 x 5 mg tablet Condition: Wednesday Dose/Route: 5 mg Instruction: 1 x 5 mg tablet Condition: Wednesday Dose/Route: 5 mg Instruction: 1 x 5 mg tablet Protocol Text: Adjustment Start Date: Wednesday08/13/20 INR Value: 2.90 INR Date: 07/31/20 meclizine 12.5 mg tablet 12.5 mg PO TID PRN (Reason: DIZZINESS ) Held metformin 500 mg tablet extended release 24 hr 1,000 mg PO BID Hold Instructions: Resume on 07/15/23. Toujeo SoloStar U-300 Insulin 300 unit/mL (1.5 mL) insulin pen 15 unit SUBCUT DAILY Hold Instructions: Resume on 07/15/23. Rx Instructions: QAM Referrals / Follow Up: Gwen David MD [Primary Care Provider] - Disposition Disposition (needs filled in before D/C Order can be placed): [facility] Facility Charges/Coding Visit Charges Inpatient E&M: 33920 Disch Hosp >30min
--- NOTE | 2023-07-07 15:33 | CASEMGMT ---
Discharge Planning [facility] notified that patient will return today. [facility] will transport patient by cot at 5p. Nursing, SW, and patients daughter, Ni updated. Adriana Huynh, Discharge Planning Asst.
[2023-07-07 17:14] VITALS: BP 106/70; PULSE 80; RESP 18; TEMP 36.6; O2SAT 98
[2023-07-07 17:45] LABS: Bedside Glucose 222 mg/dL (74-106)
== END 2023-07-07 18:13 | disposition skilled nursing facility (03) | DRG 872 ==
LOC: ED 07-01 01:17 → ICU 07-01 01:46 → PCU 07-02 16:38
PROVIDERS: Hospitalist; Internal Medicine Critical Care Medicine; Admitting Provider Internal Medicine; Emergency Provider Emergency Medicine; PCP Internal Medicine; Visit Provider Family Medicine
DX: A41.51 Sepsis due to Escherichia coli [E. coli] (principal); E87.21 Acute metabolic acidosis; E87.1 Hypo-osmolality and hyponatremia; D62 Acute posthemorrhagic anemia; N17.9 Acute kidney failure, unspecified; M97.02XA Periprosthetic fracture around internal prosthetic left hip joint, initial encounter; N39.0 Urinary tract infection, site not specified; E11.649 Type 2 diabetes mellitus with hypoglycemia without coma; E11.65 Type 2 diabetes mellitus with hyperglycemia; Z79.4 Long term (current) use of insulin; I48.0 Paroxysmal atrial fibrillation; I10 Essential (primary) hypertension; I35.0 Nonrheumatic aortic (valve) stenosis; D69.59 Other secondary thrombocytopenia; K80.70 Calculus of gallbladder and bile duct without cholecystitis without obstruction; E78.00 Pure hypercholesterolemia, unspecified; E87.5 Hyperkalemia; K21.9 Gastro-esophageal reflux disease without esophagitis; I25.10 Atherosclerotic heart disease of native coronary artery without angina pectoris; M79.81 Nontraumatic hematoma of soft tissue; W19.XXXA Unspecified fall, initial encounter; E55.9 Vitamin D deficiency, unspecified; Z95.2 Presence of prosthetic heart valve; F40.240 Claustrophobia; R29.6 Repeated falls; R53.81 Other malaise; Z66 Do not resuscitate; Z96.642 Presence of left artificial hip joint; Z79.01 Long term (current) use of anticoagulants; Z79.84 Long term (current) use of oral hypoglycemic drugs; Z79.899 Other long term (current) drug therapy; Z87.891 Personal history of nicotine dependence
CPT/HCPCS: 36415; 36569; 71045; 73700; 74176; 76705; 78226; 80048; 80053; 80074; 80076; 80202; 81001; 82274; 82550; 82728; 82962; 83540; 83550; 83605; 83735; 84100; 85018; 85025; 85027; 85610; 85652; 85730; 86140; 86850; 86900; 86901; 86920; 87040; 87086; 87088; 87186; 93005; 94668; 97162; 97166; 97530; 97535; 97802; 99252; 99285; A9537; J7030; J7040; J7050; J7120; P9016; A4216; G0463

== ENCOUNTER 2023-07-15 15:33 | Emergency (ER) | payer MEDICARE, SELFPAY ==
[2020-12-04 07:04] VITALS: BMI 27.6
[2023-07-15 15:41] VITALS: BP 114/80; PULSE 101; RESP 23; TEMP 35.9; O2SAT 95; BMI 28.4
--- NOTE | 2023-07-15 15:56 | EKG12_ITS ---
Test Reason : GEN ILLNESS Blood Pressure : / mmHG Vent. Rate : 114 BPM Atrial Rate : 052 BPM P-R Int : 000 ms QRS Dur : 126 ms QT Int : 340 ms P-R-T Axes : 000 -04 101 degrees QTc Int : 468 ms Atrial fibrillation Non-specific intra-ventricular conduction block Abnormal ECG Confirmed by APRYL RAMOS, EDWIN ([id number]), technical editor BESSY SPENCER ([id number]) on 07/16/2023 9:35:03 AM Referred By: AARTI Confirmed By:EDWIN PINK MD
--- NOTE | 2023-07-15 15:57 | EX.ED.DYSGE1 ---
HPI History of Present Illness Chief Complaint: Fever Narrative Narrative: 73-year-old female presents from [facility], DNR [facility] arrest, with concern for sepsis. It was reported that she had a temperature of 99.5 and was tachycardic. However, she has a history of atrial fibrillation with a rapid ventricular response for which she takes atenolol. She states over the last few days she has not felt well with generalized malaise and fatigue. She denies any dysuria or hematuria. She was sent in for evaluation because she has a history of urosepsis. She denies any chest pain or cough, no shortness of breath, no upper respiratory infection type symptoms. [facility] Medical History Abnormal electrocardiogram Abrasion Alcohol use Anemia Angina at rest Arthritis Atherosclerotic heart disease of [place] coronary artery without angina pectoris Atrial fibrillation Back pain Bacteremia Blood infection Cardiology follow-up encounter Depression Dietary restriction Dyslipidemia Encounter for long-term current use of high risk medication Essential hypertension Former smoker Gastric reflux High cholesterol History of atrial fibrillation History of echocardiogram History of hiatal hernia History of irregular heartbeat History of pain when walking History of renal disease History of stress test Hx of fracture of arm Hx of uterine prolapse Hypertension Insulin dependent diabetes mellitus Leg cramps Loss of hearing Mitral valve disorder Murmur, functional Nonrheumatic aortic (valve) stenosis Palpitations Paroxysmal atrial fibrillation Paroxysmal ventricular tachycardia Post-menopausal Premature atrial contraction Premature ventricular contraction Restless legs Shortness of breath on exertion SIRS (systemic inflammatory response syndrome) Type 2 diabetes mellitus Ventricular tachycardia Vertigo Wears glasses Wears partial dentures Home Medications gemfibrozil 600 mg tablet (Lopid) 600 mg PO BIDAC CHOLESTEROL 07/10/13 [History Last Taken 06/09/23] atorvastatin 40 mg tablet 40 mg PO DAILY CHOLESTEROL 12/21/17 [History Last Taken 06/09/23] meclizine 12.5 mg tablet 12.5 mg PO TID PRN DIZZINESS 09/30/20 [History Last Taken 10/20/22] cholecalciferol (vitamin D3) 50 mcg (2,000 unit) capsule (Vitamin D3) 50 mcg PO DAILY SUPPLEMENT 10/14/22 [History Last Taken 06/08/23] diphenhydramine HCl 25 mg capsule (Benadryl) 50 mg PO QHS SLEEP 10/14/22 [History Last Taken 06/08/23] colestipol 1 gram tablet (Colestid) 1 g PO DAILY CHOLESTEROL 03/24/23 [History Last Taken 06/09/23] metformin 500 mg tablet,extended release 24 hr 1,000 mg PO BID BLOOD SUGARS 06/09/23 [History Last Taken 06/09/23] omeprazole 40 mg capsule,delayed release 40 mg PO BID ACID REFLUX 06/09/23 [History Last Taken 06/09/23] Remove Patch 1 patch topical DAILY@2200 ##0 06/12/23 [Rx Last Taken Unknown] insulin lispro 100 unit/mL subcutaneous pen (Humalog KwikPen (U-100) Insulin) See Protocol subcut TIDAC #0 mL 06/12/23 [Rx Last Taken Unknown] lidocaine 5 % topical patch 1 patch topical DAILY #0 ea 06/12/23 [Rx Last Taken Unknown] polyethylene glycol 3350 17 gram oral powder packet 17 g PO DAILY #0 ea 06/12/23 [Rx Last Taken Unknown] acetaminophen 325 mg capsule 325 mg PO Q4H PRN pain 06/19/23 [History Last Taken Unknown] acetaminophen 500 mg tablet (Acetaminophen Extra Strength) 1,000 mg PO QHS PRN pain 06/19/23 [History Last Taken Unknown] enoxaparin 60 mg/0.6 mL subcutaneous syringe 50 mg subcut DAILY 06/19/23 [History Last Taken Unknown] insulin glargine U-300 conc 300 unit/mL (1.5 mL) subcutaneous pen (Toujeo SoloStar U-300 Insulin) 15 unit subcut DAILY 06/19/23 [History Last Taken Unknown] insulin glargine-yfgn 100 unit/mL (3 mL) subcutaneous pen 15 unit subcut DAILY 06/19/23 [History Last Taken Unknown] insulin lispro 100 unit/mL subcutaneous solution (Humalog U-100 Insulin) 17 unit subcut QPM 06/19/23 [History Last Taken Unknown] methocarbamol 500 mg tablet 500 mg PO 4X/DAY PRN PRN Muscle pain/spasm #40 tabs 06/19/23 [Rx Last Taken Unknown] mirtazapine 15 mg tablet (Remeron) 15 mg PO QHS 06/19/23 [History Last Taken Unknown] oxycodone-acetaminophen 5 mg-325 mg tablet (Percocet) 1 tab PO Q6H PRN pain 7 days #28 tabs 06/19/23 [Rx Last Taken Unknown] insulin glargine 100 unit/mL (3 mL) subcutaneous pen (Lantus Solostar U-100 Insulin) 15 unit subcut BREAKFAST 06/30/23 [History Last Taken Unknown] insulin glargine 100 unit/mL (3 mL) subcutaneous pen (Lantus Solostar U-100 Insulin) 17 unit subcut QPM 06/30/23 [History Last Taken Unknown] warfarin 4 mg tablet 4 mg PO MOWEFR 06/30/23 [History Last Taken Unknown] warfarin 5 mg tablet 5 mg PO .TUTHSASU BLOOD THINNER 06/30/23 [History Last Taken Unknown] cephalexin 500 mg capsule 500 mg PO Q8H 3 days #9 caps 07/05/23 [Rx Last Taken Unknown] Allergy/AdvReac Type Severity Reaction Status Date / Time Calcium Channel Blocking Allergy Rash Verified 07/15/23 15:43 Agent Dilt [Calcium Channel Blocking Agents-Win] Family History Mother CAD (coronary artery disease) Brother hyperlipidemia Brother Hypertension Father CAD (coronary artery disease) Surgical History Bioprosthetic mitral valve replacement, current hospitalization History of cardiac catheterization History of left heart catheterization (LHC) (~07/19/20) History of mitral valve replacement with mechanical valve (~09/29/01) History of total left hip replacement Hx of colonoscopy Hx of dilation and curettage Hx of inguinal hernia repair Hx of lithotripsy 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 Generalized malaise and fatigue. HEENT: No sore throat. No neck pain. No loss of vision. No rhinorrhea. Cardiovascular: No chest pain. No palpitations. No pedal edema. Respiratory: No cough, no shortness of breath. Abdominal: No abdominal pain. No nausea. No vomiting. Genitourinary: No dysuria. No hematuria. Musculoskeletal: No myalgias. No arthralgias. Neurologic: No headaches. No dizziness. No lightheadedness. Skin: No rash. No change in color. Psychiatric: No depression. No anxiety. EXAM Physical Exam Narrative Exam Narrative: Afebrile. Vital signs noted. HEENT: Normocephalic. Atraumatic. PERRL, EOMI. Neck soft and supple. No point tenderness or step off. Cardiovascular: Intermittently irregularly irregular tachycardia at less than 120 bpm. No murmurs, rubs, or gallops appreciated. Respiratory: No tachypnea. Lungs clear to auscultation bilaterally. Gastrointestinal: Abdomen soft, nontender, with normoactive bowel sounds. No rebound or guarding. Neurological: Awake. Alert. Nonfocal, nonlateralizing. Skin: No rash. Normal color. No pallor. Musculoskeletal: No pedal edema. Bilateral lower extremities wrapped in Mario bandages, no noted erythema. Full range of motion extremities. Const Vital Signs: 07/15/23 15:41 07/15/23 15:45 07/15/23 16:01 Temperature 96.6 F L Temperature Source Temporal Pulse Rate 101 H Respiratory Rate 23 H Respiratory Pattern Normal Blood Pressure 114/80 Blood Pressure Mean 91 Pulse Ox 95 96 Oxygen Delivery Method Room Air Room Air 07/15/23 16:30 Temperature Temperature Source Pulse Rate 99 Respiratory Rate 14 Respiratory Pattern Blood Pressure 110/82 H Blood Pressure Mean 91 Pulse Ox 98 Oxygen Delivery Method MDM MDM MDM Narrative Medical decision making narrative: Concern is for UTI with sepsis. She is afebrile here with a temperature of 96.6 ?F. Additionally, her tachycardia may be secondary to her atrial fibrillation with a rapid ventricular response. Sepsis work-up will be pursued. EKG was obtained and interpreted by myself independently which demonstrates atrial fibrillation at [address] changes. No STEMI. She will be given something for rate control which she usually takes, but she appears rate controlled below 120 currently. I reviewed her laboratory work and she has normal white count of 5.1, hemoglobin normal at 12.6, platelet count normal at 337. INR is elevated at 3.4. She was told to hold her Coumadin for a day, and she states that she usually gets it checked every few days. Her electrolyte panel is remarkable for chloride of 111 which I think is nonspecific, BUN slightly elevated at 31 with a normal creatinine of 0.60. Her urinalysis is negative for infection. Chest x-ray interpreted by myself shows no evidence of a discrete pneumonia or consolidation, no pneumothorax. I reviewed the radiology report which confirms my independent interpretation. The comments on atelectasis. I do not feel that this is a pneumonia that requires antibiotics as she does not have an elevated white count or fever here. Additionally, her pulse ox is 98% on room air. She was swabbed for COVID and influenza which was reviewed and is negative. Her blood pressure is currently 116 systolic. She has not been hypotensive here as reported at the [facility] facility. Lactic acid is normal at 1.5. At this point in time, I see no evidence of sirs or sepsis. I feel she be discharged back to the prison facility. Return instructions to the emergency department were reviewed. Disposition is discharged to prison facility in stable condition. History & Record Review Discussion w/independent historian: Patient Additional record(s) reviewed:: Prior ED visit and Prior labs Lab Data Attestation: I reviewed the patient's lab results. Labs: Laboratory Results - last 24 hr 07/15/23 07/15/23 15:50 16:12 WBC 5.1 RBC 4.07 L Hgb 12.6 Hct 40.9 MCV 100.5 H MCH 31.0 MCHC 30.8 L D RDW Std Deviation 73.5 H RDW Coeff of Tk 20.1 H Plt Count 337 MPV 10.7 Immature Gran % (Auto) 0.400 Neut % (Auto) 77.4 H Lymph % (Auto) 10.7 L Gem % (Auto) 7.5 Eos % (Auto) 3.0 Baso % (Auto) 1.0 Absolute Neuts (auto) 3.9 Absolute Lymphs (auto) 0.54 L Nucleated RBC % 0 Differential Comment PT 34.6 H INR 3.4 APTT 39.6 H Sodium 141 Potassium 4.4 Chloride 111 H Carbon Dioxide 25.0 Anion Gap 5 BUN 31 H Creatinine 0.60 Estim Creat Clear Calc 38.44 Est GFR (MDRD) Af Amer 125 Est GFR (MDRD) Non-Af 103 BUN/Creatinine Ratio 51.5 H Glucose 186 H Lactic Acid 1.5 Calcium 8.8 Total Bilirubin 0.80 AST 51 H ALT 40 Alkaline Phosphatase 132 H Total Protein 5.8 L Albumin 2.3 L Globulin 3.5 Albumin/Globulin Ratio 0.7 L Urine Color Yellow Urine Clarity Clear Urine pH 5.0 Ur Specific Effort 1.015 Urine Protein 30 H Urine Glucose (UA) Normal Urine Ketones Negative Urine Occult Blood 10 H Urine Nitrite Negative Urine Bilirubin Negative Urine Urobilinogen Normal Ur Leukocyte Esterase Negative Urine RBC 0 SEEN Urine WBC 0 SEEN Ur Squamous Epith Cells 0 SEEN Urine Bacteria 0 SEEN Urine Mucus 0 SEEN Radiography Diagnostic Testing: Clinical Impression(s) from Imaging Studies Chest X-Ray 07/15/23 16:19 IMPRESSION: Diminished inspiratory effort and minor bibasilar atelectasis or infiltrate. Electronically Signed: Aman Calle MD at 16:37 EST Reading Location ID and State: [facility] / [place] Tel , Service support , Discharge Plan Triage Chief Complaint: Fever ED Provider: Jordi Bhakta Dx/Rx/DC Orders Clinical Impression: Transient hypotension, Elevated INR (international normalized ratio) due to prior anticoagulant medication ingestion, Elevated temperature, Paroxysmal atrial fibrillation Instructions: ED AFIB, ED Screening Exam Medical Nonurgent Prescriptions: No Action atorvastatin 40 mg tablet 40 mg PO DAILY colestipol [Colestid] 1 gram tablet 1 g PO DAILY gemfibrozil [Lopid] 600 MG tablet 600 mg PO BIDAC diphenhydramine HCl [Benadryl] 25 mg Capsule 50 mg PO QHS cholecalciferol (vitamin D3) [Vitamin D3] 50 mcg (2,000 unit) Capsule 50 mcg PO DAILY omeprazole 40 mg capsule,delayed release(DR/EC) 40 mg PO BID metformin 500 mg tablet extended release 24 hr 1,000 mg PO BID Hold Instructions: Resume on 07/15/23. insulin lispro [Humalog KwikPen Insulin] 100 unit/mL Insulin Pen See Protocol subcut TIDAC Qty: 0 0RF Protocol: 4. Sliding Scale Insulin High-Med Dosing Condition: 150-199 mg/dl = 2 units Condition: 200-259 mg/dl = 4 units Condition: 260-324 mg/dl = 6 units Condition: 325-374 mg/dl = 8 units Condition: 375-409 mg/dl = 10 units Condition: 410-449 mg/dl = 11 units Condition: Greater than 449 call physician Protocol Text: - Use for Total Daily Dose of Insulin 56-80 units - Patient who are insulin resistant or septic HIGH MEDIUM DOSING ALGORITHM polyethylene glycol 3350 17 gram Powder In Packet 17 g PO DAILY Qty: 0 0RF lidocaine 5 % Adhesive Patch,Medicated 1 patch topical DAILY Qty: 0 0RF Protocol: *Topical Application Instructions APPLICATION INSTRUCTIONS: right hip Remove Patch 1 patch topical DAILY@2200 Qty: 0 0RF acetaminophen [Acetaminophen Extra Strength] 500 mg tablet 1,000 mg PO QHS PRN (Reason: pain) acetaminophen 325 mg capsule 325 mg PO Q4H PRN (Reason: pain) Patient Comments: DO NO EXCEED 4GM IN 24H insulin lispro [Humalog U-100 Insulin] 100 unit/mL solution 17 unit subcut QPM Hold Instructions: Duplicate Order Toujeo SoloStar U-300 Insulin 300 unit/mL (1.5 mL) insulin pen 15 unit SUBCUT DAILY Hold Instructions: Resume on 07/15/23. Rx Instructions: QAM mirtazapine [Remeron] 15 mg tablet 15 mg PO QHS insulin glargine-yfgn 100 unit/mL (3 mL) Insulin Pen 15 unit subcut DAILY Hold Instructions: Order Changed Rx Instructions: EACH AM enoxaparin 60 mg/0.6 mL syringe 50 mg subcut DAILY oxycodone-acetaminophen [Percocet] 5-325 mg tablet 1 tab PO Q6H PRN (Reason: pain) 7 Days Qty: 28 0RF methocarbamol 500 mg tablet 500 mg PO 4X/DAY PRN PRN (Reason: Muscle pain/spasm) Qty: 40 0RF warfarin 4 mg tablet 4 mg PO MOWEFR insulin glargine [Lantus Solostar U-100 Insulin] 100 unit/mL (3 mL) insulin pen 17 unit subcut QPM insulin glargine [Lantus Solostar U-100 Insulin] 100 unit/mL (3 mL) insulin pen 15 unit subcut BREAKFAST warfarin 5 mg tablet 5 mg PO .TUTHSASU Protocol: Dose Management Condition: Wednesday Dose/Route: 5 mg Instruction: 1 x 5 mg tablet Condition: Wednesday Dose/Route: 7.5 mg Instruction: 1.5 x 5 mg tablets Condition: Wednesday Dose/Route: 7.5 mg Instruction: 1.5 x 5 mg tablets Condition: Wednesday Dose/Route: 5 mg Instruction: 1 x 5 mg tablet Condition: Dose/Route: 5 mg Instruction: 1 x 5 mg tablet Condition: Wednesday Dose/Route: 5 mg Instruction: 1 x 5 mg tablet Condition: Wednesday Dose/Route: 5 mg Instruction: 1 x 5 mg tablet Protocol Text: Adjustment Start Date: Wednesday08/13/20 INR Value: 2.90 INR Date: 07/31/20 cephalexin 500 mg capsule 500 mg PO Q8H 3 Days Qty: 9 0RF meclizine 12.5 mg tablet 12.5 mg PO TID PRN (Reason: DIZZINESS ) Primary Care Provider: Gwen David Referrals: Gwen David MD [Primary Care Provider] - As soon as possible Activity Restrictions/Additional Instructions: You had slightly elevated INR of 3.4. Hold your Coumadin for 1 day and have it rechecked as you usually do. You do not have evidence of a urinary tract infection or pneumonia. Your blood pressure has come up. Continue your medications for atrial fibrillation. Disposition Disposition: [facility] Facility Discharge Location: [facility]
[2023-07-15 16:01] VITALS: O2SAT 96
[2023-07-15] MEDS: 0.9% Normal Saline (1000mL) 1,000 ML 999 ML IV (16:16)
--- NOTE | 2023-07-15 16:19 | RAD_ITS ---
STUDY: X-RAY CHEST REASON FOR EXAM: Female, 73 years old. Fever TECHNIQUE: AP portable COMPARISON: July 01, 2023 FINDINGS: There is less than optimal inspiratory effort and mild bibasilar atelectasis or infiltrate. Blunted left costophrenic sulcus possibly representing tiny effusion versus pleural thickening Postop change status post median sternotomy and aortic valve stent Heart is mildly enlarged. Normal mediastinum and rahat. Normal visualized pulmonary arteries. Normal visualized aortic arch and descending thoracic aorta. Dorsal spine and shoulders demonstrate degenerative change Normal visualized ribs, and clavicles. There is no demonstrated abnormality of the visualized soft tissue structures of the upper abdomen. RAD/Chest 1 View (Portable) IMPRESSION: Diminished inspiratory effort and minor bibasilar atelectasis or infiltrate. Electronically Signed: Aman Calle MD at 16:37 EST ,
[2023-07-15 16:30] VITALS: BP 110/82; PULSE 99; RESP 14; O2SAT 98
[2023-07-15 16:33] LABS: Absolute Lymphocyte Count 0.54 X10^3/uL (0.83-4.51); Absolute Neutrophil Count 3.9 X10^3/uL (2.0-7.7); Basophil# 0.05 X10^3/uL; Eosinophil# 0.15 X10^3/uL; Hematocrit 40.9 % (37-47); Hemoglobin 12.6 g/dL (12.0-15.0); Lymphocyte # 0.54 X10^3/ul (0.83-4.51); Lymphocyte % 10.7 % (19-41); Mean Corp Hgb Conc 30.8 g/dL (32-36); Mean Corpuscular Volume 100.5 fL (81-99); Mean Platelet Vol. 10.7 fl (6.2-12.0); Monocyte# 0.38 X10^3/uL; Monocyte% 7.5 % (0-10); NRBC Flagged by Analyzer 0 % (0-5); Neutrophil # 3.93 X10^3/uL (2.7-7.7); Neutrophil % 77.4 % (47-70); POSITIVE DIFFERENTIAL YES; POSITIVE MORPHOLOGY YES; Platelet Count 337 K/mm3 (150-450); RBC Distribution Width CV 20.1 % (11.6-14.6); RBC Distribution Width SD 73.5 fl (35.1-43.9); Red Blood Count 4.07 M/mm3 (4.2-5.4); White Blood Count 5.1 K/mm3 (4.4-11.0)
[2023-07-15 16:35] LABS: Differential Indicated SCAN CRITERIA MET
[2023-07-15 16:37] LABS: International Normalized Ratio 3.4; Prothrombin Time (Protime)PT. 34.6 SECONDS (11.7-14.9)
[2023-07-15 16:38] LABS: Partial Thromboplast Time 39.6 Seconds (24.1-36.2)
[2023-07-15 16:44] LABS: ALB/GLOB Ratio 0.7 RATIO (0.9-2.4); AST(SGOT) 51 U/L (15-37); Alanine Aminotransfer ALT/SGPT 40 U/L (13-56); Albumin, Serum 2.3 g/dL (3.2-5.0); Alkaline Phosphatase 132 U/L (45-117); Anion Gap 5 (5-15); BUN 31 mg/dL (7-18); BUN/Creat Ratio 51.5 RATIO (10-20); Calcium,Total 8.8 mg/dL (8.5-10.1); Chloride 111 mmol/L (98-107); EST Glomerular Filtration Rate 103 mL/min (>60); Est Glom Filt Rate - Afr Amer 125 mL/min (>60); Estimated Creatinine Clearance 38.44 ml/min; Globulin 3.5 g/dL (2.2-4.2); Glucose 186 mg/dL (74-106); Potassium 4.4 mmol/L (3.5-5.1); Protein, Total 5.8 g/dL (6.4-8.2); Sodium Level 141 mmol/L (136-145)
[2023-07-15 16:46] LABS: Lactic Acid 1.5 mmol/L (0.4-1.9)
[2023-07-15 16:51] LABS: Bacteria 0 SEEN /hpf (None Seen); Mucous, Urine 0 SEEN /hpf (<or=2+); Red Blood Cells-Urine 0 SEEN /hpf (0-5); White Blood Cells 0 SEEN /hpf (0-5)
[2023-07-15 17:03] LABS: Color, Urine Yellow (Yellow); Glucose, Dipstick Normal (Normal); Ketone-Dipstick Negative (Negative); Leukocyte Esterase-Dipstick Negative /ul (Negative); Nitrite-Dipstick Negative (Negative); Occult Blood-Urine 10 /ul (Negative); Protein-Dipstick 30 mg/dl (Negative); Specific Gravity, Urine 1.015 (1.002-1.030); Urine Bilirubin Dipstick Negative (Negative); Urine Clarity Clear (Clear); Urine Urobilinogen Normal (Normal)
[2023-07-15 17:20] LABS: Squamous Epithelial Cells - UA 0 SEEN /hpf (5-10)
--- NOTE | 2023-07-15 21:04 | ED.RN ---
CALLED PHYSICIANS AT 2046 TO REQUEST OUTSOURCING, PHYSICIANS CALLED BACK AT 2102 WITH AN UPDATE THAT THROUGH [employer] WAS SUCCESSFUL FOR A NEW ETA OF 2199
[2023-07-15 21:15] VITALS: BP 140/77; PULSE 89; PULSE 90; RESP 18; RESP 20
== END 2023-07-15 22:35 | disposition skilled nursing facility (03) ==
PROVIDERS: Emergency Provider Emergency Medicine; PCP Internal Medicine; Visit Provider Emergency Medicine
DX: I95.9 Hypotension, unspecified (principal); I48.0 Paroxysmal atrial fibrillation; E11.9 Type 2 diabetes mellitus without complications; R79.1 Abnormal coagulation profile; I25.10 Atherosclerotic heart disease of native coronary artery without angina pectoris; R50.9 Fever, unspecified; Z87.891 Personal history of nicotine dependence; Z79.01 Long term (current) use of anticoagulants
CPT/HCPCS: 71045; 80053; 81001; 83605; 85025; 85610; 85730; 87040; 87086; 87428; 93005; 96360; 96361; 99285; J7030; A4216

== ENCOUNTER 2023-07-24 10:35 | Inpatient (IN) | payer MEDICARE, SELFPAY ==
[2020-12-04 07:04] VITALS: BMI 27.6
[2023-07-24 10:37] VITALS: BP 112/73; PULSE 98; RESP 14; TEMP 36.6; O2SAT 94; BMI 27.6
--- NOTE | 2023-07-24 10:50 | RAD_ITS ---
STUDY: X-RAY - LEFT SHOULDER REASON FOR EXAM: Female, 73 years old. Injury/Pain TECHNIQUE: 3 view(s) of the shoulder. COMPARISON: Chest x-ray dated July 15, 2023 FINDINGS: Multiple intramedullary pins are present across the humeral head to the proximal one third shaft traversing a humeral neck fracture which demonstrates 80% healing. Demineralization is present at the original fracture site. There is severe degenerative narrowing and osteophyte formation of the left shoulder joint. 2 hairline fractures are seen in the inferior aspect of the glenoid which appear to be acute to subacute as there is no signs of healing. These were also not seen on the July 15, 2023 study. The soft tissue structures are unremarkable. Stable CABG clips. RAD/Shoulder min 2 Views IMPRESSION: 2 hairline fractures are seen in the inferior aspect of the glenoid which appear to be acute to subacute as there is no signs of healing. These were also not seen on the July 15, 2023 study. 1. Electronically Signed: Irineo Barbour MD at 11:46 EST ,
--- NOTE | 2023-07-24 10:59 | EDS_ITS ---
HPI HPI - Fall History of Present Illness Chief Complaint: Fall Detail of Chief Complaint: Fell from bed this morning injuring left shoulder Informant: patient Occured/Mechanism Occurred: Hours Narrative: Patient elevated her bed last evening. This morning when she got up to get out of the bed she forgot that was elevated and fell onto her left side. She landed on her left shoulder. Pain/Injury Location: Left shoulder, fell at home. Pain Location: upper extremity (Left shoulder region) Quality of Pain: Dull, Aching and Throbbing Current Severity: Mild Maximum Severity: Moderate Worsened by: Palpation and movement Relieved by: Nothing Associated Symptoms Associated Symptoms: Positive for Loss of function; Negative for Parasthesias, Weakness, Inability to ambulate, Loss of consciousness or Amnesia Narrative Narrative: Patient is a 73-year-old woman with history of paroxysmal atrial fibrillation on long-term anticoagulant, Coumadin. Patient had an INR drawn on July 20. INR was 2.3. Patient states that she elevated her bed last evening. She forgot she elevated when she attempted to get out of bed during the night. She fell onto her left shoulder. She denied loss of conscious. She does have a rug burn to the left forearm. She believes her tetanus shot was within the last 5 to 10 years. Prior similar symptoms: No Recent Illness/Hospitalization: No PFSH PFSH Medical History Abnormal electrocardiogram Abrasion Alcohol use Anemia Angina at rest Arthritis Atherosclerotic heart disease of [place] coronary artery without angina pectoris Atrial fibrillation Back pain Bacteremia Blood infection Cardiology follow-up encounter Depression Dietary restriction Dyslipidemia Encounter for long-term current use of high risk medication Essential hypertension Former smoker Gastric reflux High cholesterol History of atrial fibrillation History of echocardiogram History of hiatal hernia History of irregular heartbeat History of pain when walking History of renal disease History of stress test Hx of fracture of arm Hx of uterine prolapse Hypertension Insulin dependent diabetes mellitus Leg cramps Loss of hearing Mitral valve disorder Murmur, functional Nonrheumatic aortic (valve) stenosis Palpitations Paroxysmal atrial fibrillation Paroxysmal ventricular tachycardia Post-menopausal Premature atrial contraction Premature ventricular contraction Restless legs Shortness of breath on exertion SIRS (systemic inflammatory response syndrome) Type 2 diabetes mellitus Ventricular tachycardia Vertigo Wears glasses Wears partial dentures Home Medications gemfibrozil 600 mg tablet (Lopid) 600 mg PO BIDAC CHOLESTEROL 07/10/13 [History Last Taken 06/09/23] atorvastatin 40 mg tablet 40 mg PO DAILY CHOLESTEROL 12/21/17 [History Last Taken 06/09/23] meclizine 12.5 mg tablet 12.5 mg PO TID PRN DIZZINESS 09/30/20 [History Last Taken 10/20/22] cholecalciferol (vitamin D3) 50 mcg (2,000 unit) capsule (Vitamin D3) 50 mcg PO DAILY SUPPLEMENT 10/14/22 [History Last Taken 06/08/23] diphenhydramine HCl 25 mg capsule (Benadryl) 50 mg PO QHS SLEEP 10/14/22 [H istory Last Taken 06/08/23] colestipol 1 gram tablet (Colestid) 1 g PO DAILY CHOLESTEROL 03/24/23 [History Last Taken 06/09/23] metformin 500 mg tablet,extended release 24 hr 1,000 mg PO BID BLOOD SUGARS 06/09/23 [History Last Taken 06/09/23] omeprazole 40 mg capsule,delayed release 40 mg PO BID ACID REFLUX 06/09/23 [History Last Taken 06/09/23] Remove Patch 1 patch topical DAILY@2200 ##0 06/12/23 [Rx Last Taken Unknown] insulin lispro 100 unit/mL subcutaneous pen (Humalog KwikPen (U-100) Insulin) See Protocol subcut TIDAC #0 mL 06/12/23 [Rx Last Taken Unknown] lidocaine 5 % topical patch 1 patch topical DAILY #0 ea 06/12/23 [Rx Last Taken Unknown] polyethylene glycol 3350 17 gram oral powder packet 17 g PO DAILY #0 ea 06/12/23 [Rx Last Taken Unknown] acetaminophen 325 mg capsule 325 mg PO Q4H PRN pain 06/19/23 [History Last Taken Unknown] acetaminophen 500 mg tablet (Acetaminophen Extra Strength) 1,000 mg PO QHS PRN pain 06/19/23 [History Last Taken Unknown] enoxaparin 60 mg/0.6 mL subcutaneous syringe 50 mg subcut DAILY 06/19/23 [History Last Taken Unknown] insulin glargine U-300 conc 300 unit/mL (1.5 mL) subcutaneous pen (Toujeo SoloStar U-300 Insulin) 15 unit subcut DAILY 06/19/23 [History Last Taken Unknown] insulin glargine-yfgn 100 unit/mL (3 mL) subcutaneous pen 15 unit subcut DAILY 06/19/23 [History Last Taken Unknown] insulin lispro 100 unit/mL subcutaneous solution (Humalog U-100 Insulin) 17 unit subcut QPM 06/19/23 [History Last Taken Unknown] methocarbamol 500 mg tablet 500 mg PO 4X/DAY PRN PRN Muscle pain/spasm #40 tabs 06/19/23 [Rx Last Taken Unknown] mirtazapine 15 mg tablet (Remeron) 15 mg PO QHS 06/19/23 [History Last Taken Unknown] oxycodone-acetaminophen 5 mg-325 mg tablet (Percocet) 1 tab PO Q6H PRN pain 7 days #28 tabs 06/19/23 [Rx Last Taken Unknown] insulin glargine 100 unit/mL (3 mL) subcutaneous pen (Lantus Solostar U-100 Insulin) 15 unit subcut BREAKFAST 06/30/23 [History Last Taken Unknown] insulin glargine 100 unit/mL (3 mL) subcutaneous pen (Lantus Solostar U-100 Insulin) 17 unit subcut QPM 06/30/23 [History Last Taken Unknown] warfarin 4 mg tablet 4 mg PO MOWEFR 06/30/23 [History Last Taken Unknown] warfarin 5 mg tablet 5 mg PO .TUTHSASU BLOOD THINNER 06/30/23 [History Last Taken Unknown] cephalexin 500 mg capsule 500 mg PO Q8H 3 days #9 caps 07/05/23 [Rx Last Taken Unknown] Allergy/AdvReac Type Severity Reaction Status Date / Time Calcium Channel Blocking Allergy Rash Verified 07/24/23 10:41 Agent Dilt [Calcium Channel Blocking Agents-Win] Family History Mother CAD (coronary artery disease) Brother hyperlipidemia Brother Hypertension Father CAD (coronary artery disease) Surgical History Bioprosthetic mitral valve replacement, current hospitalization History of cardiac catheterization History of left heart catheterization (LHC) (~07/19/20) History of mitral valve replacement with mechanical valve (~09/29/01) History of total left hip replacement Hx of colonoscopy Hx of dilation and curettage Hx of inguinal hernia repair Hx of lithotripsy 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 Upon further questioning she admits she has not been eating well past several days. Liexsy-nr-ilry, she made the comment that she is having trouble getting around to eat. ; Denies ear pain, rhinorrhea or sore throat Cardiovascular Cardiovascular: Denies chest pain or palpitations Respiratory/Chest Respiratory/Chest: Denies cough, dyspnea or dyspnea on exertion Gastrointestinal Gastrointestinal: Denies abdominal pain, melena, nausea or vomiting Genitourinary Genitourinary ED: Denies dysuria, hematuria or urinary frequency Musculoskeletal Musculoskeletal: Reports other Details: Pain left shoulder region and left forearm ; Denies arthralgias, back pain, myalgias or neck pain Integumentary Reports Abrasions Neurologic Neurologic: Reports weakness; Denies headache(s) or paresthesias Endocrine Endocrinology: Denies polydipsia or polyphagia Hematologic/Lymphatic Hematologic/Lymphatic: Denies easy bleeding or easy bruising EXAM Physical Exam Const Vital Signs: 07/24/23 10:37 07/24/23 11:23 07/24/23 13:02 Temperature 97.8 F Temperature Source Temporal Pulse Rate 98 88 Respiratory Rate 14 20 H Respiratory Depth Normal Respiratory Pattern Normal Blood Pressure 112/73 99/88 H Blood Pressure Mean 86 91 Pulse Ox 94 97 Oxygen Delivery Method Room Air Room Air Positive well developed, cachectic and unkempt General Appearance ED: unkempt, well developed, cachectic and NAD Nutritional Appearance: cachectic HEENT Reports normocephalic, TM's clear and TM's normal bilaterally HEENT Narrative: There is no septal deviation hematoma. There is no evidence of dental trauma. Patient does have poor dentition. atraumatic Tympanic Membrane ED: Yes TM's clear Eyes PERRL and EOMs intact bilaterally Eyes Narrative: There is no subconjunctival hematoma noted. General Eye ED: Negative for pale conjunctiva or scleral icterus Neck full ROM, no lymphadenopathy and supple Neck Narrative: There is no pain palpation posterior midline of the neck. She is able to rotate to the right and left and flex without any comment of pain nor does she hesitate or grimace. Chest Wall inspection of chest normal and palpation of chest normal Resp normal respiratory effort, no retractions and clear to auscultation bilaterally Cardio regular rate and no murmurs Rhythm: abnormal rhythm irregularly irregular GI non-distended and no masses GI Narrative: There is an abrasion noted right lower quadrant. There is no active bleeding. There is no evidence infection. There is tenderness over the suprapubic area. Palpation: soft Back/Spine no CVA tenderness Extremity Extremity Narrative: There is pain to the patient over the AC joint and proximal humerus. There is no pain ovation of the lateral medial epicondyle, olecranon process or radial head. There is no pain ovation over the distal radius ulna, carpal bones, anatomical snuffbox, metacarpal bones or phalanges. Radial pulses palpable. Examination lower extremity exam reveals marked pitting edema. Neuro oriented x3, CN's II-XII intact bilaterally, moves all extremities, no focal motor deficits and no sensory deficits noted Neuro Narrative: Axillary, radial, median and ulnar nerve function intact. [place] Coma Scale: document GCS findings Spontaneous Obeys Commands Oriented 15 Sensorium / Orientation: alert Psych Appearance: unkempt Skin Skin Narrative: Patient appears pale. Trauma: abrasion MDM MDM MDM Narrative Medical decision making narrative: With urinary symptoms and tenderness of the suprapubic area will obtain urinalysis to evaluate for infection. In light of history and physical obtain x-ray of the shoulder to rule out contusion versus fracture. Since INR was obtained and within normal limits this week this was not repeated. Because there is concern she may have infection CBC was obtained to assess white count differential. Electrolyte panel was obtained to assess renal function and electrolytes since she reports poor p.o. intake. Clinically she appears dehydrated. Did not administer fluids since she has marked pitting edema of the lower extremities with history of heart failure. During discharge interview and to inform patient of her results and plan she states that her left hip hurts significantly. She was reexamined. There is no shortening of the leg. There is some tenderness over the greater trochanteric region. There is no pain with internal/external rotation. Will obtain x-ray to rule out fracture of the greater troches versus contusion. Lab Data Lab results narrative: CBC reveals elevated MCV of 101.0, this is baseline for patient. Basic metabolic panel reveals slight elevation of chloride at 111. BUN and creatinine are 33 and 0.6 with a BUN to creatinine ratio 55:1 which is approximately patient's baseline. Urine is suggestive of an infection. Macro is positive for leukoesterase and blood and ketones. Negative for nitrites. There is 0-5 WBCs with 4+ bacteria. This was obtained by straight cath. Culture was sent. She will receive Rocephin. Labs: Laboratory Results - last 24 hr 07/24/23 07/24/23 11:00 11:05 WBC 7.3 RBC 4.19 L Hgb 12.4 Hct 42.3 MCV 101.0 H MCH 29.6 MCHC 29.3 L RDW Std Deviation 71.9 H RDW Coeff of Tk 19.3 H Plt Count 317 MPV 10.2 Immature Gran % (Auto) 0.400 Neut % (Auto) 84.7 H Lymph % (Auto) 6.6 L [place] % (Auto) 6.6 Eos % (Auto) 1.0 Baso % (Auto) 0.7 Absolute Neuts (auto) 6.2 Absolute Lymphs (auto) 0.48 L Nucleated RBC % 0 Anisocytosis 1+ Sodium 140 Potassium 3.9 Chloride 111 H Carbon Dioxide 24.0 Anion Gap 5 BUN 33 H Creatinine 0.60 Estim Creat Clear Calc 41.97 Est GFR (MDRD) Af Amer 125 Est GFR (MDRD) Non-Af 103 BUN/Creatinine Ratio 55.0 H Glucose 153 H Calcium 8.2 L Urine Color Yellow Urine Clarity Sl. Cloudy Urine pH 5.0 Ur Specific [place] 1.015 Urine Protein 30 H Urine Glucose (UA) Normal Urine Ketones 5 H Urine Occult Blood 50 H Urine Nitrite Negative Urine Bilirubin 1 H Urine Urobilinogen 1 H Ur Leukocyte Esterase 25 H Urine RBC 0 SEEN Urine WBC 0-5 SEEN Ur Squamous Epith Cells 0 SEEN Urine Bacteria 4+ Urine Mucus 0 SEEN Radiography Chest X-Ray - ED: Read by ED Physician (Three-view x-ray of the shoulder was independent reviewed interpreted by me as positive for a scaphoid fracture. Send V shaped nondisplaced fracture lateral aspect near the glenoid fossa. Patient has multiple pins due to prior fracture of the proximal humerus. Of note on prior chest x-rays there ) Diagnostic Testing: Clinical Impression(s) from Imaging Studies Shoulder X-Ray 07/24/23 10:50 IMPRESSION: 2 hairline fractures are seen in the inferior aspect of the glenoid which appear to be acute to subacute as there is no signs of healing. These were also not seen on the July 15, 2023 study. 1. Electronically Signed: Irineo Barbour MD at 11:46 EST Reading Location ID and State: [facility] / ID , Service support , Hip/Pelvis X-Ray 07/24/23 12:52 IMPRESSION: 1. Large acute oblique subtrochanteric/proximal one third left femur fracture with mild displacement. Electronically Signed: Irineo Barbour MD at 14:33 EST , Will treat fracture with sling and swath. Because patient is now complaining of hip pain x-ray was obtained. Patient has a nondisplaced periprosthetic left hip fracture. The fracture goes through the greater martha and extends medially several centimeters below the lesser martha Rhythm Strip Rhythm Strip: Sinus Rhythm Rate: 90 Ectopy: None Management Discussion w/another healthcare provider: Hospitalist and Environmental Resource Specialist (Spoke with Dr. Loyd regarding fracture. He states patient will need revision. He agrees with the scapular fracture as well. Patient be admitted to medical service for clearance/restratification for surgery.) Treatment and Re-Evaluation Narrative: Patient was treated with a sling and swath. She was referred to Dr. Loyd for outpatient follow-up. She also received prescription for pain medicine and antibiotic for her UTI. She was discharged back to her nursing facility. Discharge Plan Triage Chief Complaint: Fall ED Provider: Franco Buckner Dx/Rx/DC Orders Clinical Impression: Periprosthetic fracture around internal prosthetic left hip joint, initial encounter, Nondisplaced fracture of left scapula, Paroxysmal atrial fibrillation, Essential hypertension, Type 2 diabetes mellitus, Anticoagulant long-term use, Urinary tract infection, Abrasion of abdominal wall, Abrasion forearm, Prerenal azotemia Instructions: ED Fracture, Shoulder Prescriptions: No Action atorvastatin 40 mg tablet 40 mg PO DAILY colestipol [Colestid] 1 gram tablet 1 g PO DAILY gemfibrozil [Lopid] 600 MG tablet 600 mg PO BIDAC diphenhydramine HCl [Benadryl] 25 mg Capsule 50 mg PO QHS cholecalciferol (vitamin D3) [Vitamin D3] 50 mcg (2,000 unit) Capsule 50 mcg PO DAILY omeprazole 40 mg capsule,delayed release(DR/EC) 40 mg PO BID metformin 500 mg tablet extended release 24 hr 1,000 mg PO BID Hold Instructions: Resume on 07/15/23. insulin lispro [Humalog KwikPen Insulin] 100 unit/mL Insulin Pen See Protocol subcut TIDAC Qty: 0 0RF Protocol: 4. Sliding Scale Insulin High-Med Dosing Condition: 150-199 mg/dl = 2 units Condition: 200-259 mg/dl = 4 units Condition: 260-324 mg/dl = 6 units Condition: 325-374 mg/dl = 8 units Condition: 375-409 mg/dl = 10 units Condition: 410-449 mg/dl = 11 units Condition: Greater than 449 call physician Protocol Text: - Use for Total Daily Dose of Insulin 56-80 units - Patient who are insulin resistant or septic HIGH MEDIUM DOSING ALGORITHM polyethylene glycol 3350 17 gram Powder In Packet 17 g PO DAILY Qty: 0 0RF lidocaine 5 % Adhesive Patch,Medicated 1 patch topical DAILY Qty: 0 0RF Protocol: *Topical Application Instructions APPLICATION INSTRUCTIONS: right hip Remove Patch 1 patch topical DAILY@2200 Qty: 0 0RF acetaminophen [Acetaminophen Extra Strength] 500 mg tablet 1,000 mg PO QHS PRN (Reason: pain) acetaminophen 325 mg capsule 325 mg PO Q4H PRN (Reason: pain) Patient Comments: DO NO EXCEED 4GM IN 24H insulin lispro [Humalog U-100 Insulin] 100 unit/mL solution 17 unit subcut QPM Hold Instructions: Duplicate Order Niki SoloStar U-300 Insulin 300 unit/mL (1.5 mL) insulin pen 15 unit SUBCUT DAILY Hold Instructions: Resume on 07/15/23. Rx Instructions: QAM mirtazapine [Remeron] 15 mg tablet 15 mg PO QHS insulin glargine-yfgn 100 unit/mL (3 mL) Insulin Pen 15 unit subcut DAILY Hold Instructions: Order Changed Rx Instructions: EACH AM enoxaparin 60 mg/0.6 mL syringe 50 mg subcut DAILY oxycodone-acetaminophen [Percocet] 5-325 mg tablet 1 tab PO Q6H PRN (Reason: pain) 7 Days Qty: 28 0RF methocarbamol 500 mg tablet 500 mg PO 4X/DAY PRN PRN (Reason: Muscle pain/spasm) Qty: 40 0RF warfarin 4 mg tablet 4 mg PO MOWEFR insulin glargine [Lantus Solostar U-100 Insulin] 100 unit/mL (3 mL) insulin pen 17 unit subcut QPM insulin glargine [Lantus Solostar U-100 Insulin] 100 unit/mL (3 mL) insulin pen 15 unit subcut BREAKFAST warfarin 5 mg tablet 5 mg PO .TUTHSASU Protocol: Dose Management Condition: Wednesday Dose/Route: 5 mg Instruction: 1 x 5 mg tablet Condition: Wednesday Dose/Route: 7.5 mg Instruction: 1.5 x 5 mg tablets Condition: Wednesday Dose/Route: 7.5 mg Instruction: 1.5 x 5 mg tablets Condition: Wednesday Dose/Route: 5 mg Instruction: 1 x 5 mg tablet Condition: Dose/Route: 5 mg Instruction: 1 x 5 mg tablet Condition: Wednesday Dose/Route: 5 mg Instruction: 1 x 5 mg tablet Condition: Wednesday Dose/Route: 5 mg Instruction: 1 x 5 mg tablet Protocol Text: Adjustment Start Date: Wednesday08/13/20 INR Value: 2.90 INR Date: 07/31/20 cephalexin 500 mg capsule 500 mg PO Q8H 3 Days Qty: 9 0RF meclizine 12.5 mg tablet 12.5 mg PO TID PRN (Reason: DIZZINESS ) Primary Care Provider: Gwen David Referrals: Gwen David MD [Primary Care Provider] -
[2023-07-24 11:17] LABS: Mucous, Urine 0 SEEN /hpf (<or=2+); Red Blood Cells-Urine 0 SEEN /hpf (0-5); Squamous Epithelial Cells - UA 0 SEEN /hpf (5-10)
[2023-07-24 11:24] LABS: Color, Urine Yellow (Yellow); Glucose, Dipstick Normal (Normal); Ketone-Dipstick 5 mg/dl (Negative); Leukocyte Esterase-Dipstick 25 /ul (Negative); Nitrite-Dipstick Negative (Negative); Occult Blood-Urine 50 /ul (Negative); Protein-Dipstick 30 mg/dl (Negative); Specific Gravity, Urine 1.015 (1.002-1.030); Urine Bilirubin Dipstick 1 mg/dL (Negative); Urine Clarity Sl. Cloudy (Clear); Urine Urobilinogen 1 mg/dl (Normal)
[2023-07-24 11:26] LABS: Absolute Lymphocyte Count 0.48 X10^3/uL (0.83-4.51); Absolute Neutrophil Count 6.2 X10^3/uL (2.0-7.7); Basophil# 0.05 X10^3/uL; Basophil% 0.7 % (0-1); Eosinophil# 0.07 X10^3/uL; Hematocrit 42.3 % (37-47); Hemoglobin 12.4 g/dL (12.0-15.0); Lymphocyte # 0.48 X10^3/ul (0.83-4.51); Lymphocyte % 6.6 % (19-41); Mean Corp Hgb Conc 29.3 g/dL (32-36); Mean Corpuscular Hgb 29.6 pg (27.0-32.0); Mean Platelet Vol. 10.2 fl (6.2-12.0); Monocyte# 0.48 X10^3/uL; Monocyte% 6.6 % (0-10); NRBC Flagged by Analyzer 0 % (0-5); Neutrophil # 6.18 X10^3/uL (2.7-7.7); Neutrophil % 84.7 % (47-70); POSITIVE DIFFERENTIAL YES; POSITIVE MORPHOLOGY YES; Platelet Count 317 K/mm3 (150-450); RBC Distribution Width CV 19.3 % (11.6-14.6); RBC Distribution Width SD 71.9 fl (35.1-43.9); Red Blood Count 4.19 M/mm3 (4.2-5.4); White Blood Count 7.3 K/mm3 (4.4-11.0)
[2023-07-24 11:31] LABS: Bacteria 4+ /hpf (None Seen); White Blood Cells 0-5 SEEN /hpf (0-5)
[2023-07-24 11:36] LABS: Anion Gap 5 (5-15); BUN 33 mg/dL (7-18); Calcium,Total 8.2 mg/dL (8.5-10.1); Chloride 111 mmol/L (98-107); Differential Indicated SCAN CRITERIA MET; EST Glomerular Filtration Rate 103 mL/min (>60); Est Glom Filt Rate - Afr Amer 125 mL/min (>60); Estimated Creatinine Clearance 41.97 ml/min; Glucose 153 mg/dL (74-106); Potassium 3.9 mmol/L (3.5-5.1); Sodium Level 140 mmol/L (136-145)
[2023-07-24] MEDS: Morphine 4 MG/ML Syringe IV ×2 (11:41→12:54)
[2023-07-24] MEDS: Ondansetron 4 MG/2 ML Vial IV (11:41)
[2023-07-24] MEDS: 0.9% Normal Saline (1000mL) 1,000 ML 150 ML IV (11:45)
[2023-07-24] MEDS: Ceftriaxone 1 GM/50 ML BAG IV (11:53)
[2023-07-24 12:04] LABS: Anisocytosis 1+
--- NOTE | 2023-07-24 12:52 | RAD_ITS ---
STUDY: X-RAY - PELVIS AND LEFT HIP REASON FOR EXAM: Female, 73 years old. Injury/Pain TECHNIQUE: 3 views of the pelvis and hip. COMPARISON: CT of abdomen and pelvis dated June 30, 2023 FINDINGS: There is a large acute oblique fracture in the subtrochanteric/proximal one third aspect of the left femur. The fracture fragments are mildly displaced. The left hip prosthesis is intact and without complications. Healed fracture deformity of the left intertrochanteric region and in the medial aspect of the left superior and inferior pubic rami. No additional acute fractures are seen. Surgical clips are present across the pelvis. A large tube or catheter is also seen across the midline of the pelvis. Significant vascular calcifications noted. There is a non-specific bowel gas pattern. Normal visualized soft tissue structures. RAD/HIP, UNI W/ Pelvis 2-3 Views IMPRESSION: 1. Large acute oblique subtrochanteric/proximal one third left femur fracture with mild displacement. Electronically Signed: Irineo Barbour MD at 14:33 EST ,
[2023-07-24 13:02] VITALS: BP 99/88; PULSE 88; RESP 20; O2SAT 97
[2023-07-24] MEDS: 0.9% Normal Saline (500mL Bag) 500 ML 1000 ML IV (14:17)
--- NOTE | 2023-07-24 14:44 | ED.RN ---
KONG CHRIS AT [facility] REQUESTING UPDATE. ARIES INFORMED PATIENT HAS BREAK IN LEFT SHOULDER AND NEW BREAK IN LEFT HIP. PT WILL BE ADMITTED TO HOSPITAL. NO FURTHER QUESTIONS AT THIS TIME.
[2023-07-24 15:00] VITALS: BP 112/74
--- NOTE | 2023-07-24 15:34 | PCM.HP.STD ---
HPI - General General Date of Admission: 07/24/23 HPI Narrative MACIEL BUCIO, is a 73 F who presents to the hospital after falling out of bed. She had raised the height of her bed and forgot this morning when she got up and fell to the ground and landed on her left side. She denies loss of consciousness or hitting her head. Shoulder x-ray demonstrated a nondisplaced scapular fracture and she is currently in a sling which is all that will be required however she does have a history of periprosthetic fracture and repeat hip x-ray demonstrates a large acute oblique subtrochanteric/proximal one third left femur fracture with mild displacement. Orthopedic surgery was consulted and recommended revision of the hip. She has no leukocytosis or fever, her UA is slightly positive with only 25 leukocyte esterase and she was recently admitted 2 weeks ago for UTI therefore will await urine culture. [facility] Medical History (Updated 07/24/23 @ 16:39 by Nayely Harvey) Abnormal electrocardiogram Abrasion Alcohol use Anemia Angina at rest Arthritis Atherosclerotic heart disease of [place] coronary artery without angina pectoris Atrial fibrillation Back pain Bacteremia Blood infection Cardiology follow-up encounter Depression Diabetes Dietary restriction Dyslipidemia Encounter for long-term current use of high risk medication Essential hypertension Former smoker Gastric reflux High cholesterol History of atrial fibrillation History of echocardiogram History of hiatal hernia History of irregular heartbeat History of pain when walking History of renal disease History of stress test Hx of fracture of arm Hx of uterine prolapse Hypertension Hypertension Insulin dependent diabetes mellitus Leg cramps Loss of hearing Mitral valve disorder Murmur, functional Nonrheumatic aortic (valve) stenosis Palpitations Paroxysmal atrial fibrillation Paroxysmal ventricular tachycardia Post-menopausal Premature atrial contraction Premature ventricular contraction Restless legs Shortness of breath on exertion SIRS (systemic inflammatory response syndrome) Type 2 diabetes mellitus Ventricular tachycardia Vertigo Wears glasses Wears partial dentures Home Medications gemfibrozil 600 mg tablet (Lopid) 600 mg PO BIDAC CHOLESTEROL 07/10/13 [History Last Taken 06/09/23] atorvastatin 40 mg tablet 40 mg PO DAILY CHOLESTEROL 12/21/17 [History Last Taken 06/09/23] meclizine 12.5 mg tablet 12.5 mg PO TID PRN DIZZINESS 09/30/20 [History Last Taken 10/20/22] cholecalciferol (vitamin D3) 50 mcg (2,000 unit) capsule (Vitamin D3) 50 mcg PO DAILY SUPPLEMENT 10/14/22 [History Last Taken 06/08/23] diphenhydramine HCl 25 mg capsule (Benadryl) 50 mg PO QHS SLEEP 10/14/22 [History Last Taken 06/08/23] colestipol 1 gram tablet (Colestid) 1 g PO DAILY CHOLESTEROL 03/24/23 [History Last Taken 06/09/23] omeprazole 40 mg capsule,delayed release 40 mg PO BID ACID REFLUX 06/09/23 [History Last Taken 06/09/23] insulin lispro 100 unit/mL subcutaneous pen (Humalog KwikPen (U-100) Insulin) See Protocol subcut TIDAC diabeties #0 mL 06/12/23 [Rx Last Taken Unknown] polyethylene glycol 3350 17 gram oral powder packet 17 g PO DAILY constipation #0 ea 06/12/23 [Rx Last Taken Unknown] acetaminophen 325 mg capsule 325 mg PO Q4H PRN pain 06/19/23 [History Last Taken Unknown] acetaminophen 500 mg tablet (Acetaminophen Extra Strength) 1,000 mg PO QHS PRN pain 06/19/23 [History Last Taken Unknown] methocarbamol 500 mg tablet 500 mg PO 4X/DAY PRN PRN Muscle pain/spasm #40 tabs 06/19/23 [Rx Last Taken Unknown] mirtazapine 15 mg tablet (Remeron) 15 mg PO QHS 06/19/23 [History Last Taken Unknown] oxycodone-acetaminophen 5 mg-325 mg tablet (Percocet) 1 tab PO Q6H PRN pain 7 days #28 tabs 06/19/23 [Rx Last Taken Unknown] insulin glargine 100 unit/mL (3 mL) subcutaneous pen (Lantus Solostar U-100 Insulin) 10 unit subcut QPM diabeties 06/30/23 [History Last Taken Unknown] insulin glargine 100 unit/mL (3 mL) subcutaneous pen (Lantus Solostar U-100 Insulin) 15 unit subcut BREAKFAST 06/30/23 [History Last Taken Unknown] warfarin 4 mg tablet 6 mg PO DAILY blood thinner 06/30/23 [History Last Taken Unknown] multivitamin (Daily Multi-Vitamin tablet) 1 tab PO DAILY vitamin 07/24/23 [History Last Taken Unknown] Allergy/AdvReac Type Severity Reaction Status Date / Time Calcium Channel Blocking Allergy Rash Verified 07/24/23 10:41 Agent Dilt [Calcium Channel Blocking Agents-Win] Family History Mother CAD (coronary artery disease) Brother hyperlipidemia Brother Hypertension Father CAD (coronary artery disease) Surgical History Bioprosthetic mitral valve replacement, current hospitalization History of cardiac catheterization History of left heart catheterization (LHC) (~07/19/20) History of mitral valve replacement with mechanical valve (~09/29/01) History of total left hip replacement Hx of colonoscopy Hx of dilation and curettage Hx of inguinal hernia repair Hx of lithotripsy 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) Social History housing: senior living Smoking Status: Former smoker alcohol intake: never substance use type: does not use caffeine: Yes Type: coffee Number of servings: 1 what type of physical activity do you participate in: walking frequency: daily duration: 15-30 minutes/day seatbelt use: always do you feel safe at home: Yes ROS Constitutional Constitutional: Denies chills, fatigue, fever(s) or malaise Eyes Eyes: Denies blurry vision ENT HEENT: Denies headache(s) or nasal discharge Cardiovascular Cardiovascular: Denies chest pain, dyspnea on exertion or syncope Respiratory/Chest Respiratory/Chest: Denies cough, shortness of breath at rest or shortness of breath with exertion Gastrointestinal Gastrointestinal: Denies constipation, diarrhea, nausea or vomiting Genitourinary Genitourinary: Denies dysuria Musculoskeletal Musculoskeletal: Reports joint pain Neurologic Neurologic: Reports confusion; Denies focal weakness, numbness or tremor(s) Psychiatric Psychiatric: Denies anxiety or depression Vital Signs Vital Signs Vital Signs: 07/24/23 10:37 07/24/23 11:23 07/24/23 13:02 Temperature 97.8 F Temperature Source Temporal Pulse Rate 98 88 Respiratory Rate 14 20 H Respiratory Depth Normal Respiratory Pattern Normal Blood Pressure 112/73 99/88 H Blood Pressure Mean 86 91 Pulse Ox 94 97 Oxygen Delivery Method Room Air Room Air Weight Weight: 160 lb 14.999 oz Body Mass Index (BMI) 27.6 Physical Exam Narrative General: Alert, Oriented x2, Cooperative, No apparent distress, she said that it was 1923 but she does remember that I took care of her 2 weeks ago HEENT: Atraumatic, PERRLA, EOMI, Normocephalic Oral: Moist Mucosa Neck: Supple, No JVD Lungs: Diminished, Normal air movement, No rhonchi, No wheeze, No rales Cardiovascular: Regular rate, Regular Rhythm, Normal S1, Normal S2, No murmurs Abdomen: Soft, Non Tender, Non-Distended, No Hepato-splenomegaly Extremities: No edema, Capillary Refill Less than 3 Seconds Skin: No rashes, No breakdown Musculoskeletal: Left hip tenderness for the periprosthetic fracture Neurological: Moves all of her extremities other than her left upper extremity which is in a sling, no focal findings, Sensory exam intact to light touch and pain Psych/Mental Status: Normal Affect, Appropriate Results Lab / Micro Data 07/24/23 11:05 07/24/23 18:10 Labs: Laboratory Results - last 24 hr 07/24/23 11:00: Urine Color Yellow, Urine Clarity Sl. Cloudy, Urine pH 5.0, Ur Specific [place] 1.015, Urine Protein 30 H, Urine Glucose (UA) Normal, Urine Ketones 5 H, Urine Occult Blood 50 H, Urine Nitrite Negative, Urine Bilirubin 1 H, Urine Urobilinogen 1 H, Ur Leukocyte Esterase 25 H, Urine RBC 0 SEEN, Urine WBC 0-5 SEEN, Ur Squamous Epith Cells 0 SEEN, Urine Bacteria 4+, Urine Mucus 0 SEEN 07/24/23 11:05: WBC 7.3, RBC 4.19 L, Hgb 12.4, Hct 42.3, MCV 101.0 H, MCH 29.6, MCHC 29.3 L, RDW Std Deviation 71.9 H, RDW Coeff of Tk 19.3 H, Plt Count 317, MPV 10.2, Immature Gran % (Auto) 0.400, Neut % (Auto) 84.7 H, Lymph % (Auto) 6.6 L, [place] % (Auto) 6.6, Eos % (Auto) 1.0, Baso % (Auto) 0.7, Absolute Neuts (auto) 6.2, Absolute Lymphs (auto) 0.48 L, Nucleated RBC % 0, Anisocytosis 1+, Sodium 140, Potassium 3.9, Chloride 111 H, Carbon Dioxide 24.0, Anion Gap 5, BUN 33 H, Creatinine 0.60, Estim Creat Clear Calc 41.97, Est GFR (MDRD) Af Amer 125, Est GFR (MDRD) Non-Af 103, BUN/Creatinine Ratio 55.0 H, Glucose 153 H, Calcium 8.2 L Rhythm Strip Rhythm Strip: Sinus Rhythm Rate: 90 Ectopy: None Imagaing Radiology Impression Shoulder X-Ray 07/24/23 10:50 IMPRESSION: 2 hairline fractures are seen in the inferior aspect of the glenoid which appear to be acute to subacute as there is no signs of healing. These were also not seen on the July 15, 2023 study. 1. Electronically Signed: Irineo Barbour MD at 11:46 EST Reading Location ID and State: [facility] / [place] , Service support , Hip/Pelvis X-Ray 07/24/23 12:52 IMPRESSION: 1. Large acute oblique subtrochanteric/proximal one third left femur fracture with mild displacement. Electronically Signed: Irineo Barbour MD at 14:33 EST , Assessment & Plan Assessment/Plan (1) Periprosthetic fracture around internal prosthetic left hip joint, initial encounter: PLAN: Plan 1. Left periprosthetic fracture in need of revision ? She is at moderate risk for surgery secondary to her diabetes and cardiac history as well as her age and her functional status ? Continue with pain management ? Will consult orthopedic surgery for evaluation and operative repair ? PT/OT after surgery ? Currently positioning only nonweightbearing on that left hip ? Urine cultures pending to evaluate for the possibility of a UTI as she was just here for an E. coli UTI few weeks ago ? She did receive some fluids in the ED secondary to a normal creatinine with a slightly elevated BUN 2. HTN/HLD/A-fib/history of mitral valve replacement with mechanical valve ? We will place her on therapeutic Lovenox because of her mitral valve replacement on the need to hold Coumadin ? Given her confusion will obtain a CT scan of her brain prior to initiating therapeutic anticoagulation, also need to obtain an INR as this was not done in the ED ? Continue with her home blood pressure medications as well as her statin ? Monitor make adjustments as necessary 3. DM2 ? We will hold her home Cal [place] medications ? Placed on long-acting insulin in the morning ? Accu-Cheks ACHS ?Sliding scale insulin ? We will monitor make adjustments as necessary 4. GERD ? Stable ? Continue with her home medications DVT: Pending evaluation of the above 75 minutes was spent on direct patient care, including documentation as well as chart review and collaboration with colleagues Charges/Coding Visit Charges Inpatient E&M: 84352 Init Hosp L3
--- NOTE | 2023-07-24 15:44 | CT_ITS ---
STUDY: CT BRAIN WITHOUT CONTRAST REASON FOR EXAM: Female, 73 years old. Confusion after fall, on coumadin RADIATION DOSAGE (If Supplied By Facility): CTDIvol = ( 44.99 ) mGy, DLP = ( 796.11 ) mGycm TECHNIQUE: Transaxial CT imaging of the brain was performed without administration of intravenous contrast material. Individualized dose optimization techniques were used for this CT. COMPARISON: 11/30/2022 FINDINGS: Normal soft tissue structures. Normal calvarium. There is moderate cerebral atrophy with widening of the extra-axial spaces and ventricular dilatation. There are areas of decreased attenuation within the white matter tracts of the supratentorial brain, consistent with microvascular disease changes. Normal basal ganglia and thalami. Normal brainstem. No change in the encephalomalacia in the left hemisphere of the cerebellum consistent with a chronic infarct. There is no intracranial hemorrhage. No change in the insufflation the posterior right parietal lobe consistent with a chronic infarct. Normal visualized paranasal sinuses. CT/Brain/Head without Contrast IMPRESSION: Chronic involutional changes of the brain. Electronically Signed: Chilo Meier MD at 0:12 EST ,
[2023-07-24 16:27] VITALS: BMI 28.5
--- NOTE | 2023-07-24 16:39 | CON.PCM.OR_ITS ---
HPI Consult Data Date of Consult: 07/24/23 HPI Narrative Reason for Consultation: Left scapula fracture, left femur periprosthetic fracture HPI Narrative: MACIEL BUCIO, is a 73 F who presents after a fall from her bed this morning. She had forgotten she raise the head of the bed and landed on her left side. She she complains of left shoulder and left hip pain. Patient had a left total hip arthroplasty with Dr. Enrico fernandez in October 2022. She sustained a fall on 06/09/2023 which resulted in an apparent stable periprosthetic fracture of the left hip. She was treated nonoperatively. She returned to the hospital few weeks ago for E. coli urinary tract infection and sepsis. X-rays and CT scan of the hip were stable although a hematoma was noted. Patient is on Coumadin for chronic atrial fibrillation and a an artificial valve. X-rays obtained in the emergency department today demonstrated a minimally displaced glenoid neck fracture and a significantly displaced proximal femur fracture about the left total hip femoral prosthesis. She was admitted under the service to hospitalist. Saw the patient in consultation this evening. She denies any head injury or loss consciousness. She denies any other new pains. Patient is frustrated with her left hip as it has been causing issues for several months now. She denies any fevers, chills, nausea vomiting, chest pain or shortness of breath. [facility] Medical History Abnormal electrocardiogram Abrasion Alcohol use Anemia Angina at rest Arthritis Atherosclerotic heart disease of [place] coronary artery without angina pectoris Atrial fibrillation Back pain Bacteremia Blood infection Cardiology follow-up encounter Depression Dietary restriction Dyslipidemia Encounter for long-term current use of high risk medication Essential hypertension Former smoker Gastric reflux High cholesterol History of atrial fibrillation History of echocardiogram History of hiatal hernia History of irregular heartbeat History of pain when walking History of renal disease History of stress test Hx of fracture of arm Hx of uterine prolapse Hypertension Insulin dependent diabetes mellitus Leg cramps Loss of hearing Mitral valve disorder Murmur, functional Nonrheumatic aortic (valve) stenosis Palpitations Paroxysmal atrial fibrillation Paroxysmal ventricular tachycardia Post-menopausal Premature atrial contraction Premature ventricular contraction Restless legs Shortness of breath on exertion SIRS (systemic inflammatory response syndrome) Type 2 diabetes mellitus Ventricular tachycardia Vertigo Wears glasses Wears partial dentures Home Medications gemfibrozil 600 mg tablet (Lopid) 600 mg PO BIDAC CHOLESTEROL 07/10/13 [History Last Taken 06/09/23] atorvastatin 40 mg tablet 40 mg PO DAILY CHOLESTEROL 12/21/17 [History Last Take n 06/09/23] meclizine 12.5 mg tablet 12.5 mg PO TID PRN DIZZINESS 09/30/20 [History Last Taken 10/20/22] cholecalciferol (vitamin D3) 50 mcg (2,000 unit) capsule (Vitamin D3) 50 mcg PO DAILY SUPPLEMENT 10/14/22 [History Last Taken 06/08/23] diphenhydramine HCl 25 mg capsule (Benadryl) 50 mg PO QHS SLEEP 10/14/22 [History Last Taken 06/08/23] colestipol 1 gram tablet (Colestid) 1 g PO DAILY CHOLESTEROL 03/24/23 [History Last Taken 06/09/23] metformin 500 mg tablet,extended release 24 hr 1,000 mg PO BID BLOOD SUGARS 06/09/23 [History Last Taken 06/09/23] omeprazole 40 mg capsule,delayed release 40 mg PO BID ACID REFLUX 06/09/23 [History Last Taken 06/09/23] Remove Patch 1 patch topical DAILY@2200 ##0 06/12/23 [Rx Last Taken Unknown] insulin lispro 100 unit/mL subcutaneous pen (Humalog KwikPen (U-100) Insulin) See Protocol subcut TIDAC #0 mL 06/12/23 [Rx Last Taken Unknown] lidocaine 5 % topical patch 1 patch topical DAILY #0 ea 06/12/23 [Rx Last Taken Unknown] polyethylene glycol 3350 17 gram oral powder packet 17 g PO DAILY #0 ea 06/12/23 [Rx Last Taken Unknown] acetaminophen 325 mg capsule 325 mg PO Q4H PRN pain 06/19/23 [History Last Taken Unknown] acetaminophen 500 mg tablet (Acetaminophen Extra Strength) 1,000 mg PO QHS PRN pain 06/19/23 [History Last Taken Unknown] enoxaparin 60 mg/0.6 mL subcutaneous syringe 50 mg subcut DAILY 06/19/23 [History Last Taken Unknown] insulin glargine U-300 conc 300 unit/mL (1.5 mL) subcutaneous pen (Toujeo SoloStar U-300 Insulin) 15 unit subcut DAILY 06/19/23 [History Last Taken Unknown] insulin glargine-yfgn 100 unit/mL (3 mL) subcutaneous pen 15 unit subcut DAILY 06/19/23 [History Last Taken Unknown] insulin lispro 100 unit/mL subcutaneous solution (Humalog U-100 Insulin) 17 unit subcut QPM 06/19/23 [History Last Taken Unknown] methocarbamol 500 mg tablet 500 mg PO 4X/DAY PRN PRN Muscle pain/spasm #40 tabs 06/19/23 [Rx Last Taken Unknown] mirtazapine 15 mg tablet (Remeron) 15 mg PO QHS 06/19/23 [History Last Taken Unknown] oxycodone-acetaminophen 5 mg-325 mg tablet (Percocet) 1 tab PO Q6H PRN pain 7 days #28 tabs 06/19/23 [Rx Last Taken Unknown] insulin glargine 100 unit/mL (3 mL) subcutaneous pen (Lantus Solostar U-100 Insu luis) 15 unit subcut BREAKFAST 06/30/23 [History Last Taken Unknown] insulin glargine 100 unit/mL (3 mL) subcutaneous pen (Lantus Solostar U-100 Insulin) 17 unit subcut QPM 06/30/23 [History Last Taken Unknown] warfarin 4 mg tablet 4 mg PO MOWEFR 06/30/23 [History Last Taken Unknown] warfarin 5 mg tablet 5 mg PO .TUTHSASU BLOOD THINNER 06/30/23 [History Last Taken Unknown] cephalexin 500 mg capsule 500 mg PO Q8H 3 days #9 caps 07/05/23 [Rx Last Taken Unknown] Allergy/AdvReac Type Severity Reaction Status Date / Time Calcium Channel Blocking Allergy Rash Verified 07/24/23 10:41 Agent Dilt [Calcium Channel Blocking Agents-Win] Family History Mother CAD (coronary artery disease) Brother hyperlipidemia Brother Hypertension Father CAD (coronary artery disease) Surgical History Bioprosthetic mitral valve replacement, current hospitalization History of cardiac catheterization History of left heart catheterization (LHC) (~07/19/20) History of mitral valve replacement with mechanical valve (~09/29/01) History of total left hip replacement Hx of colonoscopy Hx of dilation and curettage Hx of inguinal hernia repair Hx of lithotripsy 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 Vital Signs Vital Signs Vital Signs: 07/24/23 10:37 07/24/23 11:23 07/24/23 13:02 Temperature 97.8 F Temperature Source Temporal Pulse Rate 98 88 Respiratory Rate 14 20 H Respiratory Depth Normal Respiratory Pattern Normal Blood Pressure 112/73 99/88 H Blood Pressure Mean 86 91 Pulse Ox 94 97 Oxygen Delivery Method Room Air Room Air 07/24/23 15:00 Temperature Temperature Source Pulse Rate Respiratory Rate Respiratory Depth Respiratory Pattern Blood Pressure 112/74 Blood Pressure Mean 86 Pulse Ox Oxygen Delivery Method Weight Weight: 160 lb 14.999 oz Body Mass Index (BMI) 27.6 Lab / Micro Data 07/24/23 11:05 07/24/23 11:05 Labs: Laboratory Results - last 24 hr 07/24/23 11:00: Urine Color Yellow, Urine Clarity Sl. Cloudy, Urine pH 5.0, Ur Specific [place] 1.015, Urine Protein 30 H, Urine Glucose (UA) Normal, Urine Ketones 5 H, Urine Occult Blood 50 H, Urine Nitrite Negative, Urine Bilirubin 1 H, Urine Urobilinogen 1 H, Ur Leukocyte Esterase 25 H, Urine RBC 0 SEEN, Urine WBC 0-5 SEEN, Ur Squamous Epith Cells 0 SEEN, Urine Bacteria 4+, Urine Mucus 0 SEEN 07/24/23 11:05: WBC 7.3, RBC 4.19 L, Hgb 12.4, Hct 42.3, MCV 101.0 H, MCH 29.6, MCHC 29.3 L, RDW Std Deviation 71.9 H, RDW Coeff of Tk 19.3 H, Plt Count 317, MPV 10.2, Immature Gran % (Auto) 0.400, Neut % (Auto) 84.7 H, Lymph % (Auto) 6.6 L, [place] % (Auto) 6.6, Eos % (Auto) 1.0, Baso % (Auto) 0.7, Absolute Neuts (auto) 6.2, Absolute Lymphs (auto) 0.48 L, Nucleated RBC % 0, Anisocytosis 1+, Sodium 140, Potassium 3.9, Chloride 111 H, Carbon Dioxide 24.0, Anion Gap 5, BUN 33 H, Creatinine 0.60, Estim Creat Clear Calc 41.97, Est GFR (MDRD) Af Amer 125, Est GFR (MDRD) Non-Af 103, BUN/Creatinine Ratio 55.0 H, Glucose 153 H, Calcium 8.2 L Rhythm Strip Rhythm Strip: Sinus Rhythm Rate: 90 Ectopy: None Imagaing Radiology Impression Shoulder X-Ray 07/24/23 10:50 IMPRESSION: 2 hairline fractures are seen in the inferior aspect of the glenoid which appear to be acute to subacute as there is no signs of healing. These were also not seen on the July 15, 2023 study. 1. Electronically Signed: Irineo Barbour MD at 11:46 EST , Hip/Pelvis X-Ray 07/24/23 12:52 IMPRESSION: 1. Large acute oblique subtrochanteric/proximal one third left femur fracture with mild displacement. Electronically Signed: Irineo Barbour MD at 14:33 EST , Assessment & Plan Assessment/Plan (1) Periprosthetic fracture around internal prosthetic left hip joint, initial encounter: PLAN: -Unstable, [place] B2 fracture left femur -Recommending operative intervention in the form of revision of femoral component left total hip arthroplasty with open reduction internal fixation. I reviewed the risks, benefits, terms the procedure with the patient at length. She agreed to proceed. Risk include but are not limited to bleeding, infection, loss of life or limb, need for additional surgery, instability, nonhealing bone, persistent pain, neurovascular injury, DVT or PE, risk of anesthesia, limb le ngth discrepancy. Informed consent obtained. -Clear liquids after midnight, stop clear liquids 2 hours prior to surgery. -Maintenance IV fluids -Hold Coumadin. INR pending. Likely plan to administer vitamin K if INR above 2 for surgical intervention tomorrow. -Bedrest, Christiansen -Ancef on-call to the OR. (2) Nondisplaced fracture of left scapula: PLAN: Nonoperative management Maintain sling x 3 weeks, then likely progressed to range of motion as tolerated. I hope to allow the patient to use left upper extremity with a walker/weightbearing by 6 weeks. She will require likely a one-sided walker postoperatively.
[2023-07-24 16:42] VITALS: BP 138/71; PULSE 96; RESP 16; TEMP 36.4; O2SAT 97
[2023-07-24 16:43] VITALS: BP 138/71; PULSE 96; RESP 16; TEMP 36.4; O2SAT 97
[2023-07-24] MEDS: oxyCODONE 5 MG Tablet PO ×2 (16:47→21:24)
[2023-07-24 17:07] LABS: Bedside Glucose 70 mg/dL (74-106)
--- NOTE | 2023-07-24 17:20 | EKG12_ITS ---
Test Reason : PRE OP Blood Pressure : / mmHG Vent. Rate : 104 BPM Atrial Rate : 000 BPM P-R Int : 000 ms QRS Dur : 130 ms QT Int : 320 ms P-R-T Axes : 000 -35 129 degrees QTc Int : 420 ms Atrial fibrillation with rapid ventricular response with premature ventricular or aberrantly conducte d complexes Left axis deviation Left bundle branch block Abnormal ECG When compared with ECG of 15-JUL-2023 16:28, No significant change was found Confirmed by JOSE RAMOS, EULALIA ([id number]), film and video editor VALERIA SNYDER ([id number]) on 07/27/2023 8:46:28 A M Referred By: Franco Buckner Confirmed By:TETO GARCIA MD
--- NOTE | 2023-07-24 17:35 | RAD_ITS ---
STUDY: X-RAY CHEST REASON FOR EXAM: Female, 73 years old. pre op TECHNIQUE: Single AP portable view of the chest. COMPARISON: 07/15/2023 FINDINGS: Status post median sternotomy with a suspected heart valve implant. The lungs are clear and expanded. There is no demonstrated pleural abnormality. There is moderate cardiac enlargement. Normal mediastinum and rahat. Normal visualized pulmonary arteries. Normal visualized aortic arch and descending thoracic aorta. Normal visualized thoracic spine. Severe left glenohumeral joint arthrosis with hardware in the proximal humerus There is no demonstrated abnormality of the visualized soft tissue structures of the upper abdomen. RAD/Chest 1 View (Portable) IMPRESSION: No active disease. Cardiomegaly. Electronically Signed: Chilo Meier MD at 23:21 EST ,
[2023-07-24 18:49] LABS: ALB/GLOB Ratio 0.8 RATIO (0.9-2.4); AST(SGOT) 124 U/L (15-37); Alanine Aminotransfer ALT/SGPT 92 U/L (13-56); Albumin, Serum 2.7 g/dL (3.2-5.0); Alkaline Phosphatase 156 U/L (45-117); Anion Gap 5 (5-15); BUN 30 mg/dL (7-18); Calcium,Total 8.5 mg/dL (8.5-10.1); Chloride 113 mmol/L (98-107); Creatinine, Serum 0.61 mg/dL (0.55-1.02); EST Glomerular Filtration Rate 101 mL/min (>60); Est Glom Filt Rate - Afr Amer 122 mL/min (>60); Estimated Creatinine Clearance 38.44 ml/min; Globulin 3.4 g/dL (2.2-4.2); Glucose 102 mg/dL (74-106); Potassium 3.8 mmol/L (3.5-5.1); Protein, Total 6.1 g/dL (6.4-8.2); Sodium Level 142 mmol/L (136-145)
[2023-07-24 19:01] LABS: Hemoglobin A1c 6.8 % (3.8-5.6)
[2023-07-24 19:16] LABS: International Normalized Ratio 7.6
[2023-07-24] MEDS: Phytonadione (Vit K) 10 MG in 0.9% Normal Saline (50mL Bag) 50 ML 150 MG IV (20:40)
[2023-07-24 20:45] VITALS: BP 124/68; PULSE 108; RESP 16; TEMP 36.7; O2SAT 92
[2023-07-24 21:07] LABS: Prothrombin Time (Protime)PT. 73.7 SECONDS (11.7-14.9)
[2023-07-24 21:14] LABS: International Normalized Ratio 8.7
[2023-07-24] MEDS: Pantoprazole Sodium 40 MG Tablet PO (21:25)
[2023-07-24] MEDS: Mirtazapine 15 MG Tablet PO (21:25)
[2023-07-24] MEDS: Acetaminophen 500 MG Tablet 1000 MG PO (21:25)
[2023-07-24 23:04] LABS: Bedside Glucose 136 mg/dL (74-106)
[2023-07-25 02:50] VITALS: BP 115/67; PULSE 95; RESP 16; TEMP 36.2; O2SAT 98
[2023-07-25] MEDS: Gemfibrozil 600 MG Tablet PO ×2 (05:22→16:15)
[2023-07-25] MEDS: Phytonadione (Vit K) 10 MG in 0.9% Normal Saline (50mL Bag) 50 ML 150 MG IV (05:23)
[2023-07-25] MEDS: Acetaminophen 500 MG Tablet 1000 MG PO ×3 (05:23→21:20)
[2023-07-25 06:04] LABS: Absolute Lymphocyte Count 0.85 X10^3/uL (0.83-4.51); Absolute Neutrophil Count 3.9 X10^3/uL (2.0-7.7); Basophil# 0.08 X10^3/uL; Basophil% 1.4 % (0-1); Eosinophil# 0.18 X10^3/uL; Eosinophils% 3.2 % (0-5); Hematocrit 44.2 % (37-47); Hemoglobin 12.7 g/dL (12.0-15.0); Lymphocyte # 0.85 X10^3/ul (0.83-4.51); Lymphocyte % 14.9 % (19-41); Mean Corp Hgb Conc 28.7 g/dL (32-36); Mean Corpuscular Hgb 29.2 pg (27.0-32.0); Mean Corpuscular Volume 101.6 fL (81-99); Mean Platelet Vol. 10.9 fl (6.2-12.0); Monocyte# 0.64 X10^3/uL; Monocyte% 11.2 % (0-10); NRBC Flagged by Analyzer 0 % (0-5); Neutrophil # 3.92 X10^3/uL (2.7-7.7); Neutrophil % 68.8 % (47-70); POSITIVE MORPHOLOGY YES; Platelet Count 291 K/mm3 (150-450); RBC Distribution Width SD 71.7 fl (35.1-43.9); Red Blood Count 4.35 M/mm3 (4.2-5.4); White Blood Count 5.7 K/mm3 (4.4-11.0)
[2023-07-25 06:09] LABS: International Normalized Ratio 2.1; Prothrombin Time (Protime)PT. 23.5 SECONDS (11.7-14.9)
[2023-07-25 06:12] LABS: Differential Indicated SCAN CRITERIA MET
[2023-07-25 06:32] LABS: Anion Gap 7 (5-15); BUN 29 mg/dL (7-18); BUN/Creat Ratio 69.4 RATIO (10-20); Calcium,Total 8.2 mg/dL (8.5-10.1); Chloride 111 mmol/L (98-107); Creatinine, Serum 0.42 mg/dL (0.55-1.02); EST Glomerular Filtration Rate 157 mL/min (>60); Est Glom Filt Rate - Afr Amer 190 mL/min (>60); Estimated Creatinine Clearance 38.44 ml/min; Glucose 98 mg/dL (74-106); Potassium 4.4 mmol/L (3.5-5.1); Sodium Level 141 mmol/L (136-145)
[2023-07-25 06:34] LABS: Anisocytosis 2+; Differential Comment SCANNED
[2023-07-25 06:35] LABS: Bedside Glucose 94 mg/dL (74-106)
--- NOTE | 2023-07-25 07:29 | PN.HOSP_ITS ---
Reason for Visit Reason for Visit: Diagnoses Periprosthetic fracture around internal prosthetic left hip joint, initial enco unter (07/24/23) Fracture of unspecified part of scapula, left shoulder, initial encounter for closed fracture (07/24/23) Objective Data Objective Data Vital Signs: Vital Signs Temp Pulse Resp BP Pulse Ox O2 Del Method 97.1 F L 95 16 115/67 98 Room Air 07/25/23 02:50 07/25/23 02:50 07/25/23 02:50 07/25/23 02:50 07/25/23 02:50 07/25/23 04:00 Oxygen Delivery Method Room Air Weight: 156 lb Body Mass Index (BMI) 28.5 Intake & Output: Intake and Output for Last 24 Hours 07/23/23 07/24/23 07/25/23 23:59 23:59 23:59 Intake Total 1526 / 1676 201 / 201 Output Total 300 / 300 Balance 1526 / 1676 -99 / -99 Lab / Micro Data 07/25/23 05:06 07/25/23 05:06 Labs: Laboratory Results - last 24 hr 07/24/23 11:00: Urine Color Yellow, Urine Clarity Sl. Cloudy, Urine pH 5.0, Ur Specific [place] 1.015, Urine Protein 30 H, Urine Glucose (UA) Normal, Urine Ketones 5 H, Urine Occult Blood 50 H, Urine Nitrite Negative, Urine Bilirubin 1 H, Urine Urobilinogen 1 H, Ur Leukocyte Esterase 25 H, Urine RBC 0 SEEN, Urine WBC 0-5 SEEN, Ur Squamous Epith Cells 0 SEEN, Urine Bacteria 4+, Urine Mucus 0 SEEN 07/24/23 11:05: WBC 7.3, RBC 4.19 L, Hgb 12.4, Hct 42.3, MCV 101.0 H, MCH 29.6, MCHC 29.3 L, RDW Std Deviation 71.9 H, RDW Coeff of Tk 19.3 H, Plt Count 317, MPV 10.2, Immature Gran % (Auto) 0.400, Neut % (Auto) 84.7 H, Lymph % (Auto) 6.6 L, [place] % (Auto) 6.6, Eos % (Auto) 1.0, Baso % (Auto) 0.7, Absolute Neuts (auto) 6.2, Absolute Lymphs (auto) 0.48 L, Nucleated RBC % 0, Anisocytosis 1+, Sodium 140, Potassium 3.9, Chloride 111 H, Carbon Dioxide 24.0, Anion Gap 5, BUN 33 H, Creatinine 0.60, Estim Creat Clear Calc 41.97, Est GFR (MDRD) Af Amer 125, Est GFR (MDRD) Non-Af 103, BUN/Creatinine Ratio 55.0 H, Glucose 153 H, Calcium 8.2 L 07/24/23 16:50: POC Glucose 70 L 07/24/23 18:10: PT 66.0 H, INR 7.6 H*, Sodium 142, Potassium 3.8, Chloride 113 H , Carbon Dioxide 24.0, Anion Gap 5, BUN 30 H, Creatinine 0.61, Estim Creat Clear Calc 38.44, Est GFR (MDRD) Af Amer 122, Est GFR (MDRD) Non-Af 101, BUN/Creatinine Ratio 49.0 H, Glucose 102, Hemoglobin A1c 6.8 H, Calcium 8.5, Total Bilirubin 1.40 H, AST 124 H, ALT 92 H, Alkaline Phosphatase 156 H, Total Protein 6.1 L, Albumin 2.7 L, Globulin 3.4, Albumin/Globulin Ratio 0.8 L, Blood Type AB POSITIVE, Antibody Screen NEGATIVE 07/24/23 20:35: PT 73.7 H, INR 8.7 H* 07/24/23 22:01: POC Glucose 136 H 07/25/23 05:06: WBC 5.7, RBC 4.35, Hgb 12.7, Hct 44.2, MCV 101.6 H, MCH 29.2, MCHC 28.7 L, RDW Std Deviation 71.7 H, RDW Coeff of Tk 19.0 H, Plt Count 291, MPV 10.9, Immature Gran % (Auto) 0.500, Neut % (Auto) 68.8, Lymph % (Auto) 14.9 L, [place] % (Auto) 11.2 H, Eos % (Auto) 3.2, Baso % (Auto) 1.4 H, Absolute Neuts (auto) 3.9, Absolute Lymphs (auto) 0.85, Nucleated RBC % 0, Differential Comment SCANNED, Anisocytosis 2+, PT 23.5 H, INR 2.1, Sodium 141, Potassium 4.4, Chloride 111 H, Carbon Dioxide 23.0, Anion Gap 7, BUN 29 H, Creatinine 0.42 L, Estim Creat Clear Calc 38.44, Est GFR (MDRD) Af Amer 190, Est GFR (MDRD) Non-Af 157, BUN/Creatinine Ratio 69.4 H, Glucose 98, Calcium 8.2 L 07/25/23 05:28: POC Glucose 94 Radiography Diagnostic Testing: Radiology Impression Shoulder X-Ray 07/24/23 10:50 IMPRESSION: 2 hairline fractures are seen in the inferior aspect of the glenoid which appear to be acute to subacute as there is no signs of healing. These were also not seen on the July 15, 2023 study. 1. Electronically Signed: Irineo Barbour MD at 11:46 EST , Hip/Pelvis X-Ray 07/24/23 12:52 IMPRESSION: 1. Large acute oblique subtrochanteric/proximal one third left femur fracture with mild displacement. Electronically Signed: Irineo Barbour MD at 14:33 EST , Brain CT 07/24/23 15:44 IMPRESSION: Chronic involutional changes of the brain. Electronically Signed: Chilo Meier MD at 0:12 EST Reading Location ID and State: [id number] / [employer] Tel , Service support , Chest X-Ray 07/24/23 17:35 IMPRESSION: No active disease. Cardiomegaly. Electronically Signed: Chilo Meier MD at 23:21 EST Reading Location ID and State: [id number] / [employer] Tel , Service support , Rhythm Strip Rhythm Strip: Sinus Rhythm Rate: 90 Ectopy: None Physical Exam Narrative Seen and examined. Patient had fall on her left side and broke her shoulder and left hip. She has poor balance. No syncope or LOC. No dizziness Physical exam General: Alert, Oriented x3, Cooperative, BMI 28.5 kg/m?, mildly overweight HEENT: Atraumatic, PERRLA, EOMI, Normocephalic Oral: Oral mucosa moist. No Gingival or Mucosal Lesions/ Ulcerations Neck: Supple, No JVD, Negative Carotid Bruits Lungs: Air entry diminished in bilateral lung bases. No crepitation/rhonchi Cardiovascular: Regular rate, Regular Rhythm, Normal S1, Normal S2, No murmurs Abdomen: Bowel Sounds Present, Soft, Non Tender, Non-Distended : No renal angle tenderness. No suprapubic tenderness. Extremities: No edema, Capillary Refill Less than 3 Seconds Skin: Mild bruise over left upper extremity. Musculoskeletal: Left shoulder at superior lateral aspect tender. History of previous surgical scar on left shoulder. Left hip tender with mild swelling at groin status post hip replacement. LLE externally rotated and shortened and deformity. Neurological: Cranial nerves II-XII grossly intact, DTR 2+/4. No acute focal neurological deficit. Psych/Mental Status: Normal Affect, Appropriate. Assessment & Plan Assessment/Plan (1) Periprosthetic fracture around internal prosthetic left hip joint, initial encounter: PLAN: Plan 73-year-old female was admitted through ED for accidental fall, rolled over from the highest level of the bed and then complaining of left shoulder pain. On warfarin. Denies LOC or hitting the head. 1. Left periprosthetic fracture with history of left hip replacement:Patient is moderate risk for surgery because of diabetes, CAD and artificial mechanical mitral valve replacement. Her INR was elevated. Decreased from 8.7-2.1. IV heparin drip started. Needs to be discontinued 6 hours prior to surgery. Patient will be on IV bruising therapy. Hip x-ray shows large acute oblique subtrochanteric one third left femur fracture with mild displacement. Shoulder x-ray shows 2 hairline fractures are seen in the inferior aspect of the glenoid which appeared to be acute to subacute as there is no signs of healing. These were also not seen on the July 15, [address] Elsa Andujar consulted. Discussed with the orthopedic surgeon Dr. Loyd and he said that patient will be taken to the OR probably by Dr. Hurst. I informed him about starting the IV heparin as the bridging therapy and we agreed that we will turn off heparin drip at 6 AM for surgery tomorrow at noon time. ?PT and OT on board. IV fluid after midnight NPO. Patient was started on antibiotic for E. coli UTI few weeks ago cephalexin 07/15. Urine culture pending. 2. HTN/HLD/A-fib/history of mitral valve replacement with mechanical valve: As discussed above regarding IV breathing treatment. Patient was given IV vitamin K as INR was very high 8.7 on admission. Most recent 2.1. Will try to keep PTT therapeutic and resume IV heparin drip after hemostasis secured and then gradually start on Coumadin. 3. DM2: Hold oral antidiabetic medications. Patient on long-acting insulin. Accu-Chek insulin coverage Humalog sliding scale. Monitor and adjust the dose of insulin accordingly. 4. GERD ? Continue with her home medications DVT: As mentioned above Charges/Coding Visit Charges Inpatient E&M: 28085 Subs Hosp L2
[2023-07-25] MEDS: Senna/Docusate Sodium 1 Tablet 2 TABLET PO ×2 (07:42→21:21)
[2023-07-25] MEDS: Colestipol 1 GM TABLET PO (07:42)
[2023-07-25] MEDS: Pantoprazole Sodium 40 MG Tablet PO ×2 (07:42→21:21)
[2023-07-25] MEDS: Atorvastatin Calcium 40 MG Tablet PO (07:43)
[2023-07-25 08:00] LABS: Bedside Glucose 66 mg/dL (74-106)
[2023-07-25 08:25] VITALS: BP 114/76; PULSE 71; RESP 16; TEMP 36.4; O2SAT 96
[2023-07-25] MEDS: oxyCODONE 5 MG Tablet PO ×3 (10:29→21:21)
[2023-07-25] MEDS: Insulin Lispro 100 UNIT/ML INSULN.PEN SC ×3 (11:01→21:23)
[2023-07-25 11:25] VITALS: BP 114/79; PULSE 86; RESP 16; TEMP 36.6; O2SAT 96
[2023-07-25 11:31] LABS: Bedside Glucose 283 mg/dL (74-106)
[2023-07-25 16:10] LABS: Partial Thromboplast Time 37.1 Seconds (24.1-36.2)
[2023-07-25] MEDS: HEPARIN/D5w 25,000 UNITS 25,000 UNITS/250 ML IV.SOLN. 9 UNITS CONT INF (16:26)
[2023-07-25 16:55] VITALS: BP 101/69; PULSE 82; RESP 16; TEMP 36.4; O2SAT 95
[2023-07-25 17:02] LABS: Bedside Glucose 213 mg/dL (74-106)
[2023-07-25] MEDS: Ondansetron 4 MG/2 ML Vial IV (17:31)
--- NOTE | 2023-07-25 18:18 | PCM.PN.ORT ---
Subjective Subjective Patient seen and examined. Denies any new complaints. Denies any fevers, chills, chest pain, shortness of breath. Complains of left shoulder left hip pain. Objective Data Objective Data Vital Signs: Vital Signs Temp Pulse Resp BP Pulse Ox O2 Del Method 97.6 F L 82 16 101/69 95 Room Air 07/25/23 16:55 07/25/23 16:55 07/25/23 16:55 07/25/23 16:55 07/25/23 16:55 07/25/23 16:55 Oxygen Delivery Method Room Air Weight: 156 lb Body Mass Index (BMI) 28.5 Intake & Output: Intake and Output for Last 24 Hours 07/23/23 07/24/23 07/25/23 23:59 23:59 23:59 Intake Total 1526 / 1676 601 / 601 Output Total 650 / 650 Balance 1526 / 1676 -49 / -49 Lab / Micro Data 07/25/23 05:06 07/25/23 05:06 Labs: Laboratory Results - last 24 hr 07/24/23 18:10: PT 66.0 H, INR 7.6 H*, Sodium 142, Potassium 3.8, Chloride 113 H, Carbon Dioxide 24.0, Anion Gap 5, BUN 30 H, Creatinine 0.61, Estim Creat Clear Calc 38.44, Est GFR (MDRD) Af Amer 122, Est GFR (MDRD) Non-Af 101, BUN/Creatinine Ratio 49.0 H, Glucose 102, Hemoglobin A1c 6.8 H, Calcium 8.5, Total Bilirubin 1.40 H, AST 124 H, ALT 92 H, Alkaline Phosphatase 156 H, Total Protein 6.1 L, Albumin 2.7 L, Globulin 3.4, Albumin/Globulin Ratio 0.8 L, Blood Type AB POSITIVE, Antibody Screen NEGATIVE 07/24/23 20:35: PT 73.7 H, INR 8.7 H* 07/24/23 22:01: POC Glucose 136 H 07/25/23 05:06: WBC 5.7, RBC 4.35, Hgb 12.7, Hct 44.2, MCV 101.6 H, MCH 29.2, MCHC 28.7 L, RDW Std Deviation 71.7 H, RDW Coeff of Tk 19.0 H, Plt Count 291, MPV 10.9, Immature Gran % (Auto) 0.500, Neut % (Auto) 68.8, Lymph % (Auto) 14.9 L, [place] % (Auto) 11.2 H, Eos % (Auto) 3.2, Baso % (Auto) 1.4 H, Absolute Neuts (auto) 3.9, Absolute Lymphs (auto) 0.85, Nucleated RBC % 0, Differential Comment SCANNED, Anisocytosis 2+, PT 23.5 H, INR 2.1, Sodium 141, Potassium 4.4, Chloride 111 H, Carbon Dioxide 23.0, Anion Gap 7, BUN 29 H, Creatinine 0.42 L, Estim Creat Clear Calc 38.44, Est GFR (MDRD) Af Amer 190, Est GFR (MDRD) Non-Af 157, BUN/Creatinine Ratio 69.4 H, Glucose 98, Calcium 8.2 L 07/25/23 05:28: POC Glucose 94 07/25/23 07:41: POC Glucose 66 L 07/25/23 10:57: POC Glucose 283 H 07/25/23 15:55: APTT 37.1 H 07/25/23 16:03: POC Glucose 213 H Micro: Microbiology 07/24/23 11:00 Urine, Catheterized Urine Culture - Preliminary Gram negative edu Radiography Diagnostic Testing: Radiology Impression Brain CT 07/24/23 15:44 IMPRESSION: Chronic involutional changes of the brain. Electronically Signed: Chilo Meier MD at 0:12 EST Reading Location ID and State: [employer] / [employer] Tel , Service support , Chest X-Ray 07/24/23 17:35 IMPRESSION: No active disease. Cardiomegaly. Electronically Signed: Chilo Meier MD at 23:21 EST Reading Location ID and State: [id number] / [employer] Tel , Service support , Rhythm Strip Rhythm Strip: Sinus Rhythm Rate: 90 Ectopy: None Physical Exam Narrative General -A&Ox3, NAD, appears stated age. Vital signs stable, afebrile. Respiratory -normal work of breathing, no intercostal retractions. CV -pulses regular, brisk capillary refill ?4 limbs. Abdomen-soft, nontender, nondistended. No guarding, rigidity, rebound tenderness. Musculoskeletal/neurologic -full range of motion nontender right upper extremity, right lower extremity with full sensation and strength in all dermatomes and myotomes. No midline cervical tenderness. Left upper extremity -tenderness overlying the glenohumeral joint. Pain with passive range of motion left shoulder. Cardinal motion of the left hand are intact. Radial pulse 2+ brisk upper refill in the fingertips. Compartments soft and compressible. No significant ecchymosis. No lacerations or abrasions. Left lower extremity-no obvious deformity. Pain with logroll of the left lower extremity. Well-healed, nonerythematous posterior lateral hip scar. Nontender throughout the left knee femoral shaft, tibial shaft and left foot/ankle. Brisk capillary refill. Sensation intact light touch L3-S1 dermatomes. DF, PF, EHL intact. DP, PT 2+. Pelvis is stable, nontender. Skin is intact without lacerations, abrasions. No ecchymosis noted. Assessment & Plan Assessment/Plan (1) Periprosthetic fracture around internal prosthetic left hip joint, initial encounter: PLAN: -Unstable, [place] B2 fracture left femur -Due to critically elevated INR last evening, surgery was postponed until tomorrow. Patient was given IV vitamin K. She has been started on a heparin drip due to her mechanical valve and A-fib. Plan is to proceed with left hip revision arthroplasty tomorrow. Plan to stop heparin at 0600 tomorrow. Will plan to restart heparin drip after surgery. Clear liquids after midnight, n.p.o. 2 hours prior to surgery. (2) Nondisplaced fracture of left scapula: PLAN: Nonoperative management Maintain sling x 3 weeks, then likely progressed to range of motion as tolerated. I hope to allow the patient to use left upper extremity with a walker/weightbearing by 6 weeks. She will require likely a one-sided walker postoperatively.
[2023-07-25 20:57] VITALS: BP 101/64; PULSE 80; RESP 18; TEMP 36.4; O2SAT 96
[2023-07-25] MEDS: Mirtazapine 15 MG Tablet PO (21:21)
[2023-07-25 22:37] LABS: Bedside Glucose 160 mg/dL (74-106)
[2023-07-25 22:42] LABS: Partial Thromboplast Time 117.7 Seconds (24.1-36.2)
[2023-07-26] VITALS (14 sets, daily range): BP systolic 86–137; BP diastolic 63–89; PULSE 56–114; RESP 16–116; TEMP 36.1–37.1; O2SAT 88–98; BMI 28.5
[2023-07-26] MEDS: Lactated Ringers 1,000 ML 60 ML IV (00:20)
[2023-07-26] MEDS: oxyCODONE 5 MG Tablet PO (04:13)
[2023-07-26] MEDS: Gemfibrozil 600 MG Tablet PO ×2 (04:19→23:14)
[2023-07-26] MEDS: Acetaminophen 500 MG Tablet 1000 MG PO ×2 (04:19→23:12)
[2023-07-26 04:40] LABS: Bedside Glucose 127 mg/dL (74-106)
[2023-07-26 06:16] LABS: Absolute Neutrophil Count 4.5 X10^3/uL (2.0-7.7); Basophil# 0.07 X10^3/uL; Basophil% 1.2 % (0-1); Eosinophil# 0.13 X10^3/uL; Eosinophils% 2.1 % (0-5); Hematocrit 43.9 % (37-47); Hemoglobin 12.6 g/dL (12.0-15.0); Lymphocyte % 9.9 % (19-41); Mean Corp Hgb Conc 28.7 g/dL (32-36); Mean Corpuscular Volume 100.9 fL (81-99); Mean Platelet Vol. 10.9 fl (6.2-12.0); Monocyte% 11.6 % (0-10); NRBC Flagged by Analyzer 0 % (0-5); Neutrophil # 4.51 X10^3/uL (2.7-7.7); Neutrophil % 74.5 % (47-70); POSITIVE DIFFERENTIAL YES; POSITIVE MORPHOLOGY YES; Platelet Count 296 K/mm3 (150-450); RBC Distribution Width CV 18.6 % (11.6-14.6); RBC Distribution Width SD 70.2 fl (35.1-43.9); Red Blood Count 4.35 M/mm3 (4.2-5.4); White Blood Count 6.1 K/mm3 (4.4-11.0)
[2023-07-26 06:30] LABS: Differential Indicated SCAN CRITERIA MET
[2023-07-26 06:42] LABS: International Normalized Ratio 1.4
[2023-07-26 06:44] LABS: Partial Thromboplast Time 64.9 Seconds (24.1-36.2)
[2023-07-26 06:50] LABS: Anion Gap 8 (5-15); BUN 32 mg/dL (7-18); BUN/Creat Ratio 46.7 RATIO (10-20); Calcium,Total 8.6 mg/dL (8.5-10.1); Chloride 108 mmol/L (98-107); Creatinine, Serum 0.68 mg/dL (0.55-1.02); EST Glomerular Filtration Rate 89 mL/min (>60); Est Glom Filt Rate - Afr Amer 107 mL/min (>60); Estimated Creatinine Clearance 38.44 ml/min; Glucose 147 mg/dL (74-106); Potassium 4.7 mmol/L (3.5-5.1); Sodium Level 140 mmol/L (136-145)
[2023-07-26 06:54] LABS: Differential Comment SCANNED
[2023-07-26 06:55] LABS: Anisocytosis 1+
[2023-07-26] MEDS: Colestipol 1 GM TABLET PO (08:07)
[2023-07-26] MEDS: Pantoprazole Sodium 40 MG Tablet PO ×2 (08:07→23:13)
[2023-07-26] MEDS: Atorvastatin Calcium 40 MG Tablet PO (08:07)
--- NOTE | 2023-07-26 09:26 | PN.HOSP_ITS ---
Reason for Visit Reason for Visit: Left hip pain status post fall Subjective Subjective Mrs. Ashford is a 73-year-old female who presented to the emergency department on 07/24/2023 complaining of left-sided shoulder pain and left hip pain after she fell out of bed. She evidently had raise the height of her bed and forgot this upon getting out of bed in the morning and then fell to the ground when she tried to get out of bed. She landed on her left side. She denied losing consciousness or hitting her head however she complained of shoulder pain and left hip pain. She had a known history of a periprosthetic nondisplaced hip fracture however on repeat imaging she now has a large acute oblique subtrochanteric/proximal left femoral fracture with mild displacement. Shoulder imaging revealed a nondisplaced scapular fracture and she was placed in a sling after this was found. Orthopedic surgery was consulted for management of her hip and shoulder. They recommended nonoperative management and sling placement on her left upper extremity in hopes to get her to weightbearing within 6 weeks to help with her lower extremity mobility. With regards to her left hip fracture they recommended left hip revision arthroplasty that is to be done today. She has a history of mechanical mitral valve and atrial fibrillation for which she is on Coumadin. INR on presentation was therapeutic. She was given vitamin K and started on a heparin drip for bridging purposes. Plan is to restart the heparin after surgery. Patient denies any current issues. Sitting up in bed awaiting her surgery later today. Appears comfortable. Objective Data Objective Data Vital Signs: Vital Signs Temp Pulse Resp BP Pulse Ox O2 Del Method 97.6 F L 66 16 119/85 H 97 Room Air 07/26/23 08:22 07/26/23 08:22 07/26/23 08:22 07/26/23 08:22 07/26/23 08:22 07/26/23 08:22 Oxygen Delivery Method Room Air Weight: 70.76 kg Body Mass Index (BMI) 28.5 Intake & Output: Intake and Output for Last 24 Hours 07/24/23 07/25/23 07/26/23 23:59 23:59 23:59 Intake Total 1526 / 1676 657.85 / 657.85 34.8 / 34.8 Output Total 750 / 750 50 / 50 Balance 1526 / 1676 -92.15 / -92.15 -15.2 / -15.2 Lab / Micro Data 07/26/23 06:10 07/26/23 06:10 Labs: Laboratory Results - last 24 hr 07/25/23 10:57: POC Glucose 283 H 07/25/23 15:55: APTT 37.1 H 07/25/23 16:03: POC Glucose 213 H 07/25/23 21:19: POC Glucose 160 H 07/25/23 22:10: APTT 117.7 H* 07/26/23 04:18: POC Glucose 127 H 07/26/23 06:10: WBC 6.1, RBC 4.35, Hgb 12.6, Hct 43.9, MCV 100.9 H, MCH 29.0, MCHC 28.7 L, RDW Std Deviation 70.2 H, RDW Coeff of Tk 18.6 H, Plt Count 296, MPV 10.9, Immature Gran % (Auto) 0.700, Neut % (Auto) 74.5 H, Lymph % (Auto) 9.9 L, [place] % (Auto) 11.6 H, Eos % (Auto) 2.1, Baso % (Auto) 1.2 H, Absolute Neuts (auto) 4.5, Absolute Lymphs (auto) 0.60 L, Nucleated RBC % 0, Differential Comment SCANNED, Anisocytosis 1+, PT 17.0 H, INR 1.4, APTT 64.9 H, Sodium 140, Potassium 4.7, Chloride 108 H, Carbon Dioxide 24.0, Anion Gap 8, BUN 32 H, Creatinine 0.68, Estim Creat Clear Calc 38.44, Est GFR (MDRD) Af Amer 107, Est GFR (MDRD) Non-Af 89, BUN/Creatinine Ratio 46.7 H, Glucose 147 H, Calcium 8.6 Micro: Microbiology 07/24/23 11:00 Urine, Catheterized Urine Culture - Final Enterobacter cloacae complex Rhythm Strip Rhythm Strip: Sinus Rhythm Rate: 90 Ectopy: None Physical Exam Const alert, oriented x3, no apparent distress and well nourished Constitutional Narrative: Older, chronically ill-appearing, white female, lying in bed, appears comfortable, nontoxic HEENT head/scalp atraumatic and moist oral mucous membranes HEENT Narrative: Dentition is poor, Mallampati is 2, no thrush Head and Scalp: normocephalic Resp normal respiratory effort, no retractions, no use of accessory muscles and clear to auscultation bilaterally Auscultation: Negative for rales, rhonchi or wheezes Cardio regular rate, S1 normal heart sound, S2 normal heart sound, no murmurs, no rub and no gallops; Negative for regular rhythm or no clicks Cardio Narrative: Rate controlled atrial fibrillation, click noted GI normal to inspection, nondistended, normoactive bowel sounds, soft to palpation and non-tender Extremity Extremity Narrative: Chronic bilateral lower extremity edema that is pitting in nature and 2+ bi lateral lower extremities Neuro oriented x3 and no focal motor deficits Neuro Narrative: Decreased movement left upper extremity and left lower extremity due to fractures, generalized weakness noted Speech: speech normal Psych Psych Narrative: Affect is slightly flat but appropriate for current condition, eye contact is good and patient interacts appropriately Assessment & Plan Assessment/Plan (1) Periprosthetic fracture around internal prosthetic left hip joint, initial encounter: (2) Scapular fracture: (3) Urinary tract infection: (4) Anticoagulant long-term use: (5) Elevated INR (international normalized ratio) due to prior anticoagulant medication ingestion: PLAN: Plan Left periprosthetic hip fracture -Fracture is now displaced and requires revision of total hip arthroplasty -Continue ordered pain management -As needed bowel regimen available -Orthopedic surgery is following and plan is for OR later today -PT/OT after surgery -Coumadin on hold and INR this morning is 1.4 -Plan is to restart heparin drip after surgery to be bridged back to Coumadin Left scapular fracture -Nonoperative management recommended -Maintain sling x 3 weeks then start range of motion as tolerated -Orthopedic surgery is hoping to allow the patient use the left upper extremity with a walker and weightbearing through that area by 6 weeks -Ambulation postoperatively will be complicated Enterobacter UTI -Patient was given Ancef preoperatively -Will start cefepime 1 g every 12 hours DM-2 -Hemoglobin A1c on last admission 06/15/2023 was 13.6 -Will need improved control for optimal healing -Continue home basal insulin with 15 units in a.m. -Restart home a.m. 10 units of basal insulin if blood sugars allow -Typical basal dosing for her is a 15 units at breakfast and 10 units at at bedtime -SSI as ordered -Accu-Cheks PAF/aortic valve stenosis/mechanical mitral valve -TAVR performed on 09/18/2020 -Mechanical mitral valve placement in 09/29/2001/PAF -Coumadin on hold for surgery -Continue heparin drip -Restart Coumadin once okay with orthopedic surgery postoperatively -Goal INR is 2.5-3.5 -Repeat INR daily History of Hypertension -Patient is no longer on any antihypertensives -Monitor blood pressure while hospitalized Hyperlipidemia -Continue home atorvastatin -Continue home colestipol GERD -Continue home PPI twice daily Vitamin D deficiency -Continue vitamin D supplementation DVT prophylaxis -Continue heparin drip CODE STATUS -DNR CCA with no intubation as verified on admission Charges/Coding Visit Charges Inpatient E&M: 98397 Subs Hosp L2
[2023-07-26] MEDS: Cefepime 1 GM in 0.9% NS 50 ML Minibag Q12 IV (10:45)
[2023-07-26 10:57] LABS: Bedside Glucose 159 mg/dL (74-106)
--- NOTE | 2023-07-26 11:28 | NURSING ---
pt to surgery
[2023-07-26] MEDS: Lactated Ringers 1,000 ML 15 ML IV (11:43)
[2023-07-26] MEDS: Cefazolin 2 GM in 0.9% Normal Saline (100mL Bag) 100 ML IV (14:09)
[2023-07-26] MEDS: Vancomycin IV 1,000 MG/20 ML Vial 1000 MG OPERA.SITE (17:28)
[2023-07-26] MEDS: JPS (Morphine 10mg/ml) OPERA.SITE (17:29)
[2023-07-26] MEDS: TXA 1000mg in NS100 100ml (IVPB at Incision) 660 MG IV (17:30)
--- NOTE | 2023-07-26 18:41 | PCM.OPRPT ---
Report of Operation Date of Procedure: 07/26/23 Description of Surgical Findings:: Preoperative diagnosis: Left femur periprosthetic fracture about a total hip arthroplasty Postoperative diagnosis: Left femur periprosthetic fracture about a total hip arthroplasty Procedure: 1. Left total hip arthroplasty with revision of femoral component 2. Removal of hardware left total hip arthroplasty femoral component 3. Open reduction internal fixation left proximal femur Primary Surgeon: Apollo Loyd DO Assisting Surgeon: Konstantin Weston DO Pump Assembler: Lindsay Sow PA-C Anesthesia: General endotracheal Anesthesiologist: Win Agrawal MD Estimated blood loss: 300 cc Urine output: 200 cc IV fluids: 1300 cc crystalloid Complications: None apparent Specimen: None Packing/drains: None Implants: [place] Dall-Miles trochanteric partridge farmer with 2 cables, Dall-Miles beaded cables x 4, Bebo confucianism modular hip system stem 155 mm x 14 mm, 23 mm body +0, MDM X.3 insert for MDM liner size 38 D, Bebo L fit V40 femoral head 22.2 mm +0 Intraoperative findings: Subacute comminuted greater trochanteric fracture, spiral fracture, unstable femoral stem with minimal bony ingrowth. Stable hip following final reduction. Preoperative indications: This is a 73-year-old female who presented after a mechanical fall on 07/24/2023.Patient had a left total hip arthroplasty with Dr. Enrico fernandez in October 2022. She sustained a fall on 06/09/2023 which resulted in an apparent stable periprosthetic fracture of the left hip. She was treated nonoperatively. She returned to the hospital few weeks ago for E. coli urinary tract infection and sepsis. X-rays and CT scan of the hip were stable although a hematoma was noted. Patient is on Coumadin for chronic atrial fibrillation and a an artificial valve. X-rays obtained in the emergency department today demonstrated a minimally displaced glenoid neck fracture and a significantly displaced proximal femur fracture about the left total hip femoral prosthesis. She was admitted under the service of the hospitalist. I saw the patient in consultation. X-ray was consistent with an unstable femoral stem in her left hip. I recommended surgical intervention in the form of revision left total hip arthroplasty with open reduction internal fixation of the left femur. The risks, benefits, terms the procedure reviewed with patient at length and she agreed to proceed. Risks included but were not limited to bleeding, infection, loss of life or limb, need for additional surgery, instability, nonhealing bone, persistent pain, neurovascular injury, DVT or PE, risk of anesthesia, limb length discrepancy. Informed consent obtained. Surgery was postponed yesterday to a severely elevated INR. This resolved with IV vitamin K to a safe range this morning. Description of procedure: Patient was identified in the preoperative area by name, medical record number, and date of . The operative extremity was marked. All questions were answered to the patient's satisfaction. Informed consent was confirmed. At time of her procedure, patient was brought to the operative suite and positioned supine on a standard operating table after general anesthesia was induced on her hospital bed. Endotracheal tube was placed and secured. She was then positioned in a lateral decubitus position with the left side up. Leg lengths were reproduced. We then prepped and draped the left lower extremity in normal, sterile orthopedic fashion. We performed a timeout with all parties in attendance in agreement with the side, site, operation be performed. No concerns were voiced and we elected proceed with surgery. 2 g Ancef was administered IV prior to the incision by anesthesia staff. The previous posterior lateral approach of the hip was utilized and extended distally approximately 10 cm. Full-thickness skin flaps were developed down to the level of the IT band and fascia maribell. Fascial layer was exposed with a Huntley. I then opened the fascial layer with Bovie cautery. Fracture hematoma was encountered and suctioned free. Fracture was identified distally and further fracture hematoma was debrided with a rongeur. We attempted to reduce the fracture with the original stem in place however our reduction was blocked likely by subsidence of the femoral stem. I then proceeded with dislocation of the hip for removal of the hip stem. Posterior capsule was released with Bovie cautery in standard fashion and posterior dislocation of the hip was performed. I then had my plant attendant or assistant operator utilized a bone tamp to remove the femoral head prosthesis. After several strikes to the disassociate the femoral head from the trunnion, a final strike resulted in complete removal of the stem. Trochanteric fracture was destabilized from fibrous tissue. We then proceeded with thorough irrigation and debridement of the fracture hematomas. Fibrous tissue was debrided at the greater trochanter. There was a coronal split through the greater trochanter. I then proceeded with obtaining anatomic reduction of the spiral diaphyseal fracture with fracture tenaculums. 4 separate repeated Dall-Miles cables were passed beneath the muscular layer. These were sequentially tightened and crimped. Cables were cut. Proceeded with preparation of our femur for femoral stem. Diaphyseal reamer was utilized and reamed to a final diameter of 155 mm and a 14 mm diameter. This achieved excellent vertical and rotational stability. Reamer was removed. Final distal stem was impacted to appropriate depth. We then reamed over the final stem for our body. Body was reamed to a final diameter of 23 mm. We then trialed our 23 mm body implant version with a +0 femoral head. This was reduced. There was excellent range of motion, stability and reproduction of leg lengths. Final dislocation was performed. Trial components were removed and the stem was left in place. The wound was copiously irrigated with normal saline solution. Final body was impacted over the stem and tightened utilizing the vendor supplied torque limiting screwdriver. Version was reproduced from the trial. Final MDM head was impacted over the clean dry trunnion and final reduction was performed. A 3-minute dilute sterile Betadine soak was performed in the wound. I then placed 1 g TXA within the wound for 1 minute. Wound was then copiously irrigated with normal saline solution. Trochanteric repair was performed with a Dall-Miles trochanteric partridge farmer. 2 cables were passed about the calcar. Tines were engaged into the trochanteric fragment. I then performed a modified Russell-Bola type stitch through the gluteus medius tendon for additional fixation with two #5 FiberWire sutures. Trochanteric fragment appeared stable through range of motion. We again thoroughly irrigated the wound with normal saline solution. 1 g vancomycin powder was placed within the wound. Joint compound was injected into the deep layer and subcutaneous layers containing 200 mg ropivacaine, 0.6 mg epinephrine, 30 mg ketorolac, 5 mg morphine sulfate. Capsular repair was performed with a #1 Vicryl suture. Fascial layer was closed watertight with first [id number] #1 Vicryl suture in a running #1 strata fix barbed suture. Fatty layer was reapproximated with 0 Vicryl suture. Dermis was reapproximated with interrupted buried 2-0 Vicryl suture. Skin was finally reapproximated bharati. An appropriately sized Prevena wound VAC was unavailable so a incisional VAC was fashioned with Adaptic on the skin and a thin strip of wound VAC black foam was placed. Adhesive dressing was placed. Wound VAC was applied and excellent suction seal was established. Patient was then safely awoken the operative suite. She was extubated and transferred to her hospital bed and subsequent to PACU in stable condition. She tolerated the procedure well without apparent complication. Need for skilled plant attendant or assistant operator: Dr. Weston was asked for his expertise due to the complexity of the case. His assistance and expertise aided in the efficiency of the case and resulted in less time under anesthesia and perhaps less blood loss, ultimately less risk for the patient. He was involved in patient positioning, surgical dissection, retraction, fracture reduction, prosthesis trialing and placement, as well as intraoperative decision making. Postoperative plan: Weightbearing: Weight-bear as tolerated left lower extremity, nonweightbearing left upper extremity. Plan for one-sided hemiwalker. Christiansen: Plan to remove postoperative day #1 Pain medicine: Oxycodone, Tylenol ordered Antibiotics: Plan for 2 weeks antibiotic prophylaxis following surgery. Patient is currently on cefepime for urinary tract infection. Will discuss with primary team, my preference would be 2 weeks of oral doxycycline upon discharge. Dressing: Maintain incisional wound VAC x 7 days Anticoagulation: Heparin drip to restart midnight tonight, okay to restart Coumadin postoperative day #1 Disposition: Mobilize with therapy. Anticipate SNF. Follow-up: Follow-up with orthopedics in 2 weeks for x-rays and wound check.
--- NOTE | 2023-07-26 18:45 | RAD_ITS ---
STUDY: X-RAY - PELVIS AND LEFT HIP REASON FOR EXAM: Female, 73 years old. Post Op -- AP both hips on single dolly/lateral of op hip PACU TECHNIQUE: 2 views of the pelvis and hip. COMPARISON: 1:36 PM today. FINDINGS: There is a non-specific bowel gas pattern. Normal visualized soft tissue structures. Normal bilateral iliac wings, sacroiliac joints and visualized sacrum. Normal bilateral superior and inferior pubic rami. Normal pubic symphysis. Normal bilateral ischial tuberosities. Left total hip arthroplasty. Skin bharati in place laterally. Cerclage wires noted. Metallic coils noted in the pelvis. Old fracture superior and inferior pubic ramus on the left. . RAD/Hip Min 2 Views (Portable) IMPRESSION: Status post new left total hip arthroplasty Electronically Signed: Gerhard Francis MD at 19:33 EST ,
--- NOTE | 2023-07-26 19:27 | SUR.PHASEI ---
FAMILY MEMBER, MARICRUZ, CALLED AND MESSAGE LEFT ON VOICEMAIL WITH UPDATE ON PT IN RECOVERY ROOM
[2023-07-26 19:37] LABS: Bedside Glucose 144 mg/dL (74-106)
[2023-07-26] MEDS: Insulin Lispro 100 UNIT/ML INSULN.PEN SC (23:10)
[2023-07-26] MEDS: Mirtazapine 15 MG Tablet PO (23:13)
[2023-07-26] MEDS: Senna/Docusate Sodium 1 Tablet 2 TABLET PO (23:13)
[2023-07-26 23:37] LABS: Bedside Glucose 173 mg/dL (74-106)
[2023-07-27] VITALS (9 sets, daily range): BP systolic 107–128; BP diastolic 54–83; PULSE 63–124; RESP 18; TEMP 36.3–36.7; O2SAT 92–100
[2023-07-27 00:22] LABS: International Normalized Ratio 1.5; Prothrombin Time (Protime)PT. 18.4 SECONDS (11.7-14.9)
[2023-07-27 00:23] LABS: Partial Thromboplast Time 33.2 Seconds (24.1-36.2)
[2023-07-27] MEDS: HEPARIN/D5w 25,000 UNITS 25,000 UNITS/250 ML IV.SOLN. 600 UNITS CONT INF (00:39)
[2023-07-27] MEDS: Lactated Ringers 1,000 ML 60 ML IV (05:20)
[2023-07-27] MEDS: Acetaminophen 500 MG Tablet 1000 MG PO ×3 (05:26→21:55)
[2023-07-27] MEDS: oxyCODONE 5 MG Tablet PO ×2 (06:47→10:54)
[2023-07-27] MEDS: Gemfibrozil 600 MG Tablet PO ×2 (06:48→16:06)
[2023-07-27] MEDS: Insulin Lispro 100 UNIT/ML INSULN.PEN SC ×2 (06:48→21:50)
[2023-07-27 07:53] LABS: Bedside Glucose 155 mg/dL (74-106)
--- NOTE | 2023-07-27 08:27 | NURSING ---
supervisor customer records division called at lab techs, this nurse and charge nurse unable to draw PTT/labs, informed heparin gtt running
[2023-07-27] MEDS: Insulin Glargine-YFGN 100 UNIT/ML Pen 15 UNIT SC (08:35)
[2023-07-27] MEDS: Colestipol 1 GM TABLET PO (08:35)
[2023-07-27] MEDS: Multivitamins,Therapeutic Tablet 1 TABLET PO (08:35)
[2023-07-27] MEDS: Calcium Carbonate 500 MG Tablet PO ×3 (08:35→16:09)
--- NOTE | 2023-07-27 09:34 | NURSING ---
aware jessica getting ultrasound machine to attempt to obtain labs
[2023-07-27 10:18] LABS: Absolute Lymphocyte Count 0.44 X10^3/uL (0.83-4.51); Absolute Neutrophil Count 8.9 X10^3/uL (2.0-7.7); Basophil# 0.03 X10^3/uL; Basophil% 0.3 % (0-1); Differential Indicated SCAN CRITERIA MET; Hematocrit 42.4 % (37-47); Hemoglobin 12.1 g/dL (12.0-15.0); Lymphocyte # 0.44 X10^3/ul (0.83-4.51); Lymphocyte % 4.3 % (19-41); Mean Corp Hgb Conc 28.5 g/dL (32-36); Mean Corpuscular Hgb 29.4 pg (27.0-32.0); Mean Corpuscular Volume 102.9 fL (81-99); Mean Platelet Vol. 10.6 fl (6.2-12.0); Monocyte# 0.85 X10^3/uL; Monocyte% 8.2 % (0-10); NRBC Flagged by Analyzer 0.2 % (0-5); Neutrophil # 8.93 X10^3/uL (2.7-7.7); Neutrophil % 86.5 % (47-70); POSITIVE DIFFERENTIAL YES; POSITIVE MORPHOLOGY YES; Platelet Count 325 K/mm3 (150-450); RBC Distribution Width CV 18.8 % (11.6-14.6); RBC Distribution Width SD 70.3 fl (35.1-43.9); Red Blood Count 4.12 M/mm3 (4.2-5.4); White Blood Count 10.3 K/mm3 (4.4-11.0)
[2023-07-27 10:28] LABS: International Normalized Ratio 1.6
[2023-07-27 10:48] LABS: Differential Comment SCANNED
[2023-07-27 10:49] LABS: Anisocytosis 2+; Macrocytosis 1+; Microcytosis 1+
[2023-07-27 10:52] LABS: Anion Gap 6 (5-15); BUN 38 mg/dL (7-18); BUN/Creat Ratio 32.2 RATIO (10-20); Calcium,Total 8.7 mg/dL (8.5-10.1); Chloride 107 mmol/L (98-107); Creatinine, Serum 1.18 mg/dL (0.55-1.02); EST Glomerular Filtration Rate 47 mL/min (>60); Est Glom Filt Rate - Afr Amer 57 mL/min (>60); Estimated Creatinine Clearance 32.58 ml/min; Glucose 168 mg/dL (74-106); Potassium 5.2 mmol/L (3.5-5.1); Sodium Level 137 mmol/L (136-145)
[2023-07-27] MEDS: Cholecalciferol (VIT D3) 25 MCG TABLET (1,000 UNITS) 50 MCG PO (10:54)
[2023-07-27] MEDS: Senna/Docusate Sodium 1 Tablet 2 TABLET PO ×2 (10:54→21:55)
[2023-07-27] MEDS: Cefepime 1 GM in 0.9% NS 50 ML Minibag Q12 IV (10:55)
[2023-07-27] MEDS: Pantoprazole Sodium 40 MG Tablet PO ×2 (10:55→21:55)
[2023-07-27] MEDS: Atorvastatin Calcium 40 MG Tablet PO (10:55)
--- NOTE | 2023-07-27 11:06 | NURSING ---
talked with janet in lab as still awaiting PTT results, aware still running now.
[2023-07-27 11:08] LABS: Partial Thromboplast Time 35.6 Seconds (24.1-36.2)
--- NOTE | 2023-07-27 11:08 | CASEMGMT ---
Social Work Chart reviewed and noted patient is from [facility], where patient has been since 06.12.2023, receiving skilled services. Met with patient in room, introduced to self and social work role. Patient confirms plan to return to [facility]. Patient reports agreement for social work manager to include family in conversations, with preference to call daughter Ludmila. Called Ludmila to see if Ludmila has any questions or concerns. Ludmila denies and reports agreement with [facility]. No need or indication for SNF Choice list to be given. Spoke with Discharge critical care physician assistant Adriana who will send updates to [facility] and have precert initiated once PT/OT evals are completed. Note, as far as supports go, the patient reports to have 4 children: 1. León ([phone], lives in [place]) 2. Leonardo (live in [place] but doesn't come around much) 3. Ni ([phone]), lives local but has health issues) 4. Ludmila Mendoza ([phone], lives local, still works). [employer]: Leonides Baldwin ([phone]), patient's cousin. Plan: Return to [facility], longer than 30 day stay, skilled, once precert is back and patient is medically ready for discharge. -MAIA Coffey
[2023-07-27] MEDS: Heparin Injection (Vial) 5,000 UNIT/ML VIAL IV (11:20)
[2023-07-27] MEDS: 0.9% Saline Lock 10 ML Syringe IV ×2 (11:24→20:04)
--- NOTE | 2023-07-27 11:31 | CASEMGMT ---
Discharge Planning Updates sent to [facility] via [facility]. Adriana Huynh, Discharge Planning Asst.
--- NOTE | 2023-07-27 11:36 | NURSING ---
called to room by CPS states noted HR in 140's. vs checked. pt easily awakens. PT/OT bedside. noted hx afib apical irreg. CPS getting EKG
--- NOTE | 2023-07-27 11:43 | EKG12_ITS ---
Test Reason : TACHY Blood Pressure : / mmHG Vent. Rate : 109 BPM Atrial Rate : 000 BPM P-R Int : 000 ms QRS Dur : 138 ms QT Int : 322 ms P-R-T Axes : 000 -48 115 degrees QTc Int : 433 ms Atrial fibrillation with rapid ventricular response Left axis deviation Left bundle branch block Abnormal ECG When compared with ECG of 24-JUL-2023 17:42, No significant change was found Confirmed by JOSE RAMOS, EUALLIA ([id number]), digital editor VALERIA SNYDER ([id number]) on 08/02/2023 12:51:45 PM Referred By: Franco Buckner Confirmed By:TETO GARCIA MD
--- NOTE | 2023-07-27 11:50 | PN.ORTHO_ITS ---
Subjective Subjective Insert postop active patient is s/p revision left total hip arthroplasty after periprosthetic fracture and remote greater trochanteric fracture with Dr. Loyd and Dr. Weston on 07/26/2023. Patient resting comfortably in bed. Rates pain 2/ 10 at rest. With movement 5/10. States taking Tylenol and oxycodone as needed and ice help to relieve pain. Patient has been up with therapy. Walking with the assit of a walker. Afebrile, no chest pain, shortness of breath, negative calf pain/ erythema, and no other signs of DVT. Objective Data Objective Data Vital Signs: Vital Signs Temp Pulse Resp BP Pulse Ox O2 Del Method O2 Flow Rate 97.9 F 124 H 18 120/83 H 94 Room Air 2 07/27/23 11:35 07/27/23 11:35 07/27/23 11:35 07/27/23 11:35 07/27/23 11:35 07/27/23 11:35 07/27/23 01:15 Oxygen Flow Rate (L/min) 2 Oxygen Delivery Method Room Air Weight: 70.76 kg Body Mass Index (BMI) 28.5 Intake & Output: Intake and Output for Last 24 Hours 07/25/23 07/26/23 07/27/23 23:59 23:59 23:59 Intake Total 657.85 / 657.85 1335.05 / 1335.05 764.6 / 764.6 Output Total 750 / 750 305 / 305 100 / 100 Balance -92.15 / -92.15 1030.05 / 1030.05 664.6 / 664.6 Lab / Micro Data 07/27/23 10:00 07/27/23 10:00 Labs: Laboratory Results - last 24 hr 07/26/23 19:19: POC Glucose 144 H 07/26/23 23:09: POC Glucose 173 H 07/27/23 00:05: PT 18.4 H, INR 1.5, APTT 33.2 07/27/23 06:46: POC Glucose 155 H 07/27/23 10:00: WBC 10.3, RBC 4.12 L, Hgb 12.1, Hct 42.4, MCV 102.9 H, MCH 29.4, MCHC 28.5 L, RDW Std Deviation 70.3 H, RDW Coeff of Tk 18.8 H, Plt Count 325, MPV 10.6, Immature Gran % (Auto) 0.700, Neut % (Auto) 86.5 H, Lymph % (Auto) 4.3 L, [place] % (Auto) 8.2, Eos % (Auto) 0.0, Baso % (Auto) 0.3, Absolute Neuts (auto) 8.9 H, Absolute Lymphs (auto) 0.44 L, Nucleated RBC % 0.2, Differential Comment SCANNED, Anisocytosis 2+, Microcytosis 1+, Macrocytosis 1+, PT 19.0 H, INR 1.6, APTT 35.6, Sodium 137, Potassium 5.2 H, Chloride 107, Carbon Dioxide 24.0, Anion Gap 6, BUN 38 H, Creatinine 1.18 H, Estim Creat Clear Calc 32.58, Est GFR (MDRD) Af Amer 57 L, Est GFR (MDRD) Non-Af 47 L, BUN/Creatinine Ratio 32.2 H, Glucose 168 H, Calcium 8.7 Micro: Microbiology 07/24/23 11:00 Urine, Catheterized Urine Culture - Final Enterobacter cloacae complex Radiography Diagnostic Testing: Radiology Impression Hip X-Ray 07/26/23 18:45 IMPRESSION: Status post new left total hip arthroplasty Electronically Signed: Gerhard Francis MD at 19:33 EST Reading Location ID and State: [facility] / [place] Tel , Service support , Rhythm Strip Rhythm Strip: Sinus Rhythm Rate: 90 Ectopy: None Physical Exam Narrative Patient resting comfortably in bed No signs of acute distress Satting well on room air Limb is warm to touch, Sensation intact throughout entire lower extremity, including saphenous, sural, superficial and deep peroneal, and tibial distribution. DP/PT pulses bounding. Dorsiflexion plantarflexion 5/[address] Minimal drainage. Calf nontender to palpation, no erythema, no edema. Negative Homans Assessment & Plan Assessment/Plan (1) Periprosthetic fracture around internal prosthetic left hip joint, initial encounter: (2) Status post revision of total hip replacement: PLAN: Plan 1. Will continue PT today. Weightbearing as tolerated 2. Discharge per primary team. 3. Patient will follow up for post op appointment in 2 weeks in the office with x-rays. This will need to be arranged. 4. no acute reactive leukocytosis 5. no acute post operavtive anemia secondary to acute blood loss intraoperat ively 6. DVT prophylaxis : resume warfarin. INR bridging per primary. 7 Pain control: tylenol and oxycodone prn pain 8. ok to remove post op dressing. post op day 7
[2023-07-27 12:01] LABS: Bedside Glucose 146 mg/dL (74-106)
--- NOTE | 2023-07-27 14:49 | PN.HOSP_ITS ---
Reason for Visit Reason for Visit: Left hip pain status post fall Subjective Subjective No issues overnight. Patient reports that she is sleepy. Pain is controlled. Objective Data Objective Data Vital Signs: Vital Signs Temp Pulse Resp BP Pulse Ox O2 Del Method O2 Flow Rate 97.9 F 82 18 109/54 L 98 Room Air 2 07/27/23 13:23 07/27/23 13:23 07/27/23 13:23 07/27/23 13:23 07/27/23 13:23 07/27/23 13:23 07/27/23 01:15 Oxygen Flow Rate (L/min) 2 Oxygen Delivery Method Room Air Weight: 70.76 kg Body Mass Index (BMI) 28.5 Intake & Output: Intake and Output for Last 24 Hours 07/25/23 07/26/23 07/27/23 23:59 23:59 23:59 Intake Total 657.85 / 657.85 1335.05 / 1335.05 1314.6 / 1314.6 Output Total 750 / 750 305 / 305 275 / 275 Balance -92.15 / -92.15 1030.05 / 1030.05 1039.6 / 1039.6 Lab / Micro Data 07/27/23 10:00 07/27/23 10:00 Labs: Laboratory Results - last 24 hr 07/26/23 19:19: POC Glucose 144 H 07/26/23 23:09: POC Glucose 173 H 07/27/23 00:05: PT 18.4 H, INR 1.5, APTT 33.2 07/27/23 06:46: POC Glucose 155 H 07/27/23 10:00: WBC 10.3, RBC 4.12 L, Hgb 12.1, Hct 42.4, MCV 102.9 H, MCH 29.4, MCHC 28.5 L, RDW Std Deviation 70.3 H, RDW Coeff of Tk 18.8 H, Plt Count 325, MPV 10.6, Immature Gran % (Auto) 0.700, Neut % (Auto) 86.5 H, Lymph % (Auto) 4.3 L, Tillman % (Auto) 8.2, Eos % (Auto) 0.0, Baso % (Auto) 0.3, Absolute Neuts (auto) 8.9 H, Absolute Lymphs (auto) 0.44 L, Nucleated RBC % 0.2, Differential Comment SCANNED, Anisocytosis 2+, Microcytosis 1+, Macrocytosis 1+, PT 19.0 H, INR 1.6, APTT 35.6, Sodium 137, Potassium 5.2 H, Chloride 107, Carbon Dioxide 24.0, Anion Gap 6, BUN 38 H, Creatinine 1.18 H, Estim Creat Clear Calc 32.58, Est GFR (MDRD) Af Amer 57 L, Est GFR (MDRD) Non-Af 47 L, BUN/Creatinine Ratio 32.2 H, Glucose 168 H, Calcium 8.7 07/27/23 11:02: POC Glucose 146 H Micro: Microbiology 07/24/23 11:00 Urine, Catheterized Urine Culture - Final Enterobacter cloacae complex Radiography Diagnostic Testing: Radiology Impression Hip X-Ray 07/26/23 18:45 IMPRESSION: Status post new left total hip arthroplasty Electronically Signed: Gerhard Francis MD at 19:33 EST Reading Location ID and State: [address] [place] [address] Tel , Service support , Rhythm Strip Rhythm Strip: Sinus Rhythm Rate: 90 Ectopy: None Physical Exam Const alert, oriented x3, no apparent distress and well nourished Constitutional Narrative: Older, chronically ill-appearing, white female, lying in bed groggy, appears comfortable, nontoxic HEENT head/scalp atraumatic and moist oral mucous membranes HEENT Narrative: Dentition is poor, Mallampati, no thrush Resp normal respiratory effort, no retractions, no use of accessory muscles and clear to auscultation bilaterally Auscultation: Negative for rales, rhonchi or wheezes Cardio regular rate, regular rhythm, S1 normal heart sound, S2 normal heart sound, no murmurs, no rub and no gallops; Negative for no clicks Cardio Narrative: Normal sinus rhythm, click noted GI normal to inspection, nondistended, normoactive bowel sounds, soft to palpation and non-tender Extremity Extremity Narrative: Chronic bilateral lower extremity edema that is pitting in nature and 2+ bilateral lower extremities, LLOYD hose in place Neuro oriented x3 and no focal motor deficits Neuro Narrative: Decreased movement left upper extremity and left lower extremity due to fractur es, generalized weakness noted Speech: speech normal Psych Psych Narrative: Patient groggy from postoperative condition and medications but pleasant Assessment & Plan Assessment/Plan (1) Periprosthetic fracture around internal prosthetic left hip joint, initial encounter: (2) Scapular fracture: (3) Urinary tract infection: (4) Anticoagulant long-term use: (5) Elevated INR (international normalized ratio) due to prior anticoagulant medication ingestion: (6) MURRAY (acute kidney injury): (7) Hyperkalemia: PLAN: Plan Left periprosthetic hip fracture -POD 1 BORIS revision -Continue ordered pain management -As needed bowel regimen available -PT/OT following -Weightbearing as tolerated -Heparin drip and okay per orthopedic surgery to restart Coumadin--> will need heparin drip until INR is therapeutic at 2.5-3.5 -Patient will need to follow-up in 2 weeks with orthopedic surgery for x-rays and postoperative wound check Left scapular fracture -Nonoperative management recommended -Maintain sling x 3 weeks then start range of motion as tolerated -Orthopedic surgery is hoping to allow the patient use the left upper extremity with a walker and weightbearing through that area by 6 weeks -Ambulation postoperatively will be complicated Enterobacter UTI -Continue cefepime every 12 hours and will need a total of 7 days treatment MURRAY -Christiansen in place -Baseline serum creatinine runs between 0.4 and 0.7 -Current serum creatinine is 1.18 -Suspect may be related to blood pressure and surgery -Continue IV fluids for now 100 cc/h -Recheck in a.m. -If does not improve may need further evaluation Hyperkalemia -Mild at 5.2 -If an etiology is unclear -Will repeat in a.m. -Asymptomatic DM-2 -Hemoglobin A1c on last admission 06/15/2023 was 13.6 -Will need improved control for optimal healing -Restart home a.m. basal insulin at 15 units -Continue home basal insulin 10 units at at bedtime -A.m. blood sugar was 168 -SSI as ordered -Accu-Cheks PAF/aortic valve stenosis/mechanical mitral valve -TAVR performed on 09/18/2020 -Mechanical mitral valve placement in 09/29/2001/PAF -Restart Coumadin tonight -Continue heparin drip -Current INR is 1.6 -Goal INR is 2.5-3.5 -Repeat INR daily History of Hypertension -Patient is no longer on any antihypertensives -Monitor blood pressure while hospitalized Hyperlipidemia -Continue home atorvastatin -Continue home colestipol GERD -Continue home PPI twice daily Vitamin D deficiency -Continue vitamin D supplementation DVT prophylaxis -Continue heparin drip and restart Coumadin CODE STATUS -DNR CCA with no intubation as verified on admission Charges/Coding Visit Charges Inpatient E&M: 27302 Subs Hosp L2
[2023-07-27] MEDS: Lactated Ringers 1,000 ML 100 ML IV (16:06)
[2023-07-27 16:18] LABS: Bedside Glucose 125 mg/dL (74-106)
[2023-07-27] MEDS: Juven (unflavored) Packet 1 PACKET PO (17:45)
[2023-07-27 18:24] LABS: Partial Thromboplast Time 179.7 Seconds (24.1-36.2)
--- NOTE | 2023-07-27 18:46 | NURSING ---
LILY becerra (listed) called requesting update- given.
[2023-07-27] MEDS: Insulin Glargine-YFGN 100 UNIT/ML Pen 10 UNIT SC (21:49)
[2023-07-27] MEDS: Mirtazapine 15 MG Tablet PO (21:55)
[2023-07-27 22:23] LABS: Bedside Glucose 162 mg/dL (74-106)
[2023-07-28] MEDS: 0.9% Normal Saline (500mL Bag) 500 ML 999 ML IV (00:12)
[2023-07-28] MEDS: oxyCODONE 5 MG Tablet PO ×2 (01:33→08:09)
[2023-07-28 02:08] VITALS: BP 114/71; PULSE 91; RESP 18; TEMP 37.1; O2SAT 93
[2023-07-28 02:19] LABS: Hematocrit 40.2 % (37-47); Hemoglobin 11.7 g/dL (12.0-15.0); Mean Corp Hgb Conc 29.1 g/dL (32-36); Mean Corpuscular Hgb 29.8 pg (27.0-32.0); Mean Corpuscular Volume 102.6 fL (81-99); Mean Platelet Vol. 10.4 fl (6.2-12.0); POSITIVE MORPHOLOGY YES; Platelet Count 257 K/mm3 (150-450); RBC Distribution Width CV 19.2 % (11.6-14.6); RBC Distribution Width SD 70.3 fl (35.1-43.9); Red Blood Count 3.92 M/mm3 (4.2-5.4); White Blood Count 9.2 K/mm3 (4.4-11.0)
[2023-07-28 02:20] LABS: Scan Indicated on CBC? Y/N YES- FLAGS NOTED
[2023-07-28 02:33] LABS: Partial Thromboplast Time 123.9 Seconds (24.1-36.2)
[2023-07-28 02:36] LABS: Differential Comment SCANNED
[2023-07-28] MEDS: Lactated Ringers 1,000 ML 100 ML IV ×2 (02:37→15:13)
[2023-07-28 02:38] LABS: Prothrombin Time (Protime)PT. 22.6 SECONDS (11.7-14.9)
[2023-07-28 02:40] LABS: Anion Gap 7 (5-15); BUN 46 mg/dL (7-18); BUN/Creat Ratio 34.3 RATIO (10-20); Calcium,Total 8.4 mg/dL (8.5-10.1); Chloride 107 mmol/L (98-107); Creatinine, Serum 1.34 mg/dL (0.55-1.02); EST Glomerular Filtration Rate 41 mL/min (>60); Est Glom Filt Rate - Afr Amer 50 mL/min (>60); Estimated Creatinine Clearance 28.69 ml/min; Glucose 138 mg/dL (74-106); Potassium 5.1 mmol/L (3.5-5.1); Sodium Level 136 mmol/L (136-145)
[2023-07-28] MEDS: Acetaminophen 500 MG Tablet 1000 MG PO ×3 (06:35→21:38)
[2023-07-28] MEDS: Gemfibrozil 600 MG Tablet PO ×2 (06:38→17:37)
[2023-07-28 07:03] LABS: Bedside Glucose 113 mg/dL (74-106)
[2023-07-28 07:44] VITALS: BP 112/90; PULSE 55; RESP 16; TEMP 37.1; O2SAT 95
[2023-07-28] MEDS: Insulin Glargine-YFGN 100 UNIT/ML Pen 15 UNIT SC (07:57)
[2023-07-28] MEDS: Juven (unflavored) Packet 1 PACKET PO ×2 (07:57→17:40)
[2023-07-28] MEDS: Multivitamins,Therapeutic Tablet 1 TABLET PO (07:57)
[2023-07-28] MEDS: Calcium Carbonate 500 MG Tablet PO ×3 (07:57→17:38)
[2023-07-28] MEDS: Colestipol 1 GM TABLET PO (07:57)
[2023-07-28] MEDS: Cefepime 1 GM in 0.9% NS 50 ML Minibag Q12 IV (09:33)
[2023-07-28] MEDS: Atorvastatin Calcium 40 MG Tablet PO (09:34)
[2023-07-28] MEDS: Senna/Docusate Sodium 1 Tablet 2 TABLET PO ×2 (09:35→21:38)
[2023-07-28] MEDS: Cholecalciferol (VIT D3) 25 MCG TABLET (1,000 UNITS) 50 MCG PO (09:35)
[2023-07-28] MEDS: Pantoprazole Sodium 40 MG Tablet PO ×2 (09:35→21:38)
[2023-07-28] MEDS: 0.9% Normal Saline (1000mL) 1,000 ML 999 ML IV (10:40)
[2023-07-28 11:29] LABS: Bedside Glucose 76 mg/dL (74-106)
--- NOTE | 2023-07-28 11:54 | CHAPLAIN ---
Type of Pastoral Visit _x__ Initial Visit ___ Follow-up Visit ___ On-call Visit ___ General Patient Visit ___ Spiritual Assessment ___ Family Conference ___ Bereavement ___ Rapid Response ___ Code Blue ___ Other (describe below) Pastoral Care Referral From _x__ Patient ___ Family ___ Nurse ___ Physician ___ Physical Biochemist ___ Cinder Worker ___ Other (describe below) Sacrament/Intervention ___ Active listening ___ Anointing ___ Sikhism ___ Bereavement ___ Communion ___ Reyna exploration ___ ___ Life review _x__ Prayer ___ Reconciliation ___ Sacrament of Sick _x__ Supportive presence ___ Wedding ___ Other (describe below) Pastoral Comments patient is welcoming but apologizes that she is not feeling well and not much able to talk; pt does cough during the brief visit; offer of support, reassurance of concern and care, and a prayer given for her support
--- NOTE | 2023-07-28 12:58 | PCM.PN.ORT ---
Subjective Subjective Patient undergoing attempted ultrasound-guided midline IV placement. I was unable to examine the patient. Chart was reviewed. Labs appear stable. Continue cefepime for urinary tract infection with coverage for surgical prophylaxis. Nutritional consult placed due to suspected malnutrition with low albumin and third spacing present in her legs. Will defer to primary if diuresis is recommended. Maintain incisional wound VAC. Continue to attempt mobilization with PT/OT. I will follow. Objective Data Objective Data Vital Signs: Vital Signs Temp Pulse Resp BP Pulse Ox O2 Del Method O2 Flow Rate 98.8 F 55 L 16 112/90 H 95 Room Air 2 07/28/23 07:44 07/28/23 07:44 07/28/23 07:44 07/28/23 07:44 07/28/23 07:44 07/28/23 07:47 07/27/23 01:15 Oxygen Flow Rate (L/min) 2 Oxygen Delivery Method Room Air Weight: 156 lb Body Mass Index (BMI) 28.5 Intake & Output: Intake and Output for Last 24 Hours 07/26/23 07/27/23 07/28/23 23:59 23:59 23:59 Intake Total 1335.05 / 1335.05 2795.60 / 2795.60 1560.75 / 1560.75 Output Total 305 / 305 425 / 425 75 / 75 Balance 1030.05 / 1030.05 2370.60 / 2370.60 1485.75 / 1485.75 Lab / Micro Data 07/28/23 02:02 07/28/23 02:02 Labs: Laboratory Results - last 24 hr 07/27/23 15:58: POC Glucose 125 H 07/27/23 17:35: APTT 179.7 H* 07/27/23 21:48: POC Glucose 162 H 07/28/23 02:02: WBC 9.2, RBC 3.92 L, Hgb 11.7 L, Hct 40.2, MCV 102.6 H, MCH 29.8, MCHC 29.1 L, RDW Std Deviation 70.3 H, RDW Coeff of Tk 19.2 H, Plt Count 257, MPV 10.4, Differential Comment SCANNED, PT 22.6 H, INR 2.0, APTT 123.9 H*, Sodium 136, Potassium 5.1, Chloride 107, Carbon Dioxide 22.0, Anion Gap 7, BUN 46 H, Creatinine 1.34 H, Estim Creat Clear Calc 28.69, Est GFR (MDRD) Af Amer 50 L, Est GFR (MDRD) Non-Af 41 L, BUN/Creatinine Ratio 34.3 H, Glucose 138 H, Calcium 8.4 L 07/28/23 06:34: POC Glucose 113 H 07/28/23 11:08: POC Glucose 76 Micro: Microbiology 07/24/23 11:00 Urine, Catheterized Urine Culture - Final Enterobacter cloacae complex Rhythm Strip Rhythm Strip: Sinus Rhythm Rate: 90 Ectopy: None
[2023-07-28] MEDS: Albumin Human 25% (100 mL) 25 GM/100 ML BAG IV (13:27)
[2023-07-28 13:58] LABS: Partial Thromboplast Time 50.6 Seconds (24.1-36.2)
--- NOTE | 2023-07-28 14:36 | PCM.OP.PRO ---
Procedure Report Date of Procedure: 07/28/23 Assessment & Plan Assessment/Plan (1) History of difficult venous access: PLAN: MIDLINE INSERTION: Patient identity was verified with two patient identifiers. Informed consent was obtained and time-out was completed. Hands were sanitized. The patient was positioned supine with left arm at 45 degrees, due to limited patient mobility. The patient's upper arm vasculature was assessed using ultrasound, and the left brachial vein was externally marked. An external measurement was obtained of 9 cm. Cap, mask, and prep gloves were donned. The underdrape was placed under the patient's arm. The site was prepped with chlorhexidine, and tourniquet was loosely applied. Prep gloves were discarded, and hands were sanitized. The sterile kit was opened with additional supplies dropped in. Sterile gown and gloves were donned, and the patient was draped. The sterile kit was assembled with all needle, introducer, connector, and catheter flushed with sterile normal saline. The marked site of insertion was anesthetized with 1% lidocaine. Patient tolerated well. The left brachial vein was then accessed using ultrasound guidance and guidewire was inserted to safety patsy. The tourniquet was released. The access needle. There was no resistance on insertion. The introducer sheath was retracted and peeled away, incrementally, while keeping the catheter secured. The catheter was inserted to 0 cm external. The stylet was removed. A flushed needleless connector was attached. Blood return was verified and the single-lumen was flushed with 10 mL sterile normal saline in a pulsatile fashion. Finally, the insertion site was cleaned with chlorhexidine, and the catheter was secured using a StatLock. The site was covered with a Tegaderm CHG Dressing. Chlorhexidine cap was applied to the catheter and stockinette was placed over the dressing. Baseline arm circumference was obtained at the insertion site and measured 32 cm. The primary nurse and charge nurse were made aware that midline is ready for use. Procedures Radiology Radiology Access Procedures: [id number] Central Line/Midline
[2023-07-28 14:42] VITALS: BP 97/56; PULSE 83; RESP 16; TEMP 36.8; O2SAT 96
--- NOTE | 2023-07-28 15:55 | PCM.PN.HOSP ---
Reason for Visit Reason for Visit: Left hip pain status post fall Subjective Subjective Patient states she wants to get out of bed but nobody will get her out of bed. Therapy was in this morning and try to get her out of bed but physically she was having significant difficulty doing so. She has been intermittently trying to refuse labs. I did discuss with her that it was important we get them. She is very sleepy. However does awaken and interact and have conversation. Her kidney function is a bit worse today and we discussed this etiology is unclear. Her p.o. intake is poor however we do have her on IV fluids. Objective Data Objective Data Vital Signs: Vital Signs Temp Pulse Resp BP Pulse Ox O2 Del Method O2 Flow Rate 98.3 F 83 16 97/56 L 96 Room Air 2 07/28/23 14:42 07/28/23 14:42 07/28/23 14:42 07/28/23 14:42 07/28/23 14:42 07/28/23 14:42 07/27/23 01:15 Oxygen Flow Rate (L/min) 2 Oxygen Delivery Method Room Air Weight: 70.76 kg Body Mass Index (BMI) 28.5 Intake & Output: Intake and Output for Last 24 Hours 07/26/23 07/27/23 07/28/23 23:59 23:59 23:59 Intake Total 1335.05 / 1335.05 2795.60 / 2795.60 3631.65 / 3631.65 Output Total 305 / 305 425 / 425 75 / 75 Balance 1030.05 / 1030.05 2370.60 / 2370.60 3556.65 / 3556.65 Lab / Micro Data 07/28/23 02:02 07/28/23 02:02 Labs: Laboratory Results - last 24 hr 07/27/23 15:58: POC Glucose 125 H 07/27/23 17:35: APTT 179.7 H* 07/27/23 21:48: POC Glucose 162 H 07/28/23 02:02: WBC 9.2, RBC 3.92 L, Hgb 11.7 L, Hct 40.2, MCV 102.6 H, MCH 29.8, MCHC 29.1 L, RDW Std Deviation 70.3 H, RDW Coeff of Tk 19.2 H, Plt Count 257, MPV 10.4, Differential Comment SCANNED, PT 22.6 H, INR 2.0, APTT 123.9 H*, Sodium 136, Potassium 5.1, Chloride 107, Carbon Dioxide 22.0, Anion Gap 7, BUN 46 H, Creatinine 1.34 H, Estim Creat Clear Calc 28.69, Est GFR (MDRD) Af Amer 50 L, Est GFR (MDRD) Non-Af 41 L, BUN/Creatinine Ratio 34.3 H, Glucose 138 H, Calcium 8.4 L 07/28/23 06:34: POC Glucose 113 H 07/28/23 11:08: POC Glucose 76 07/28/23 13:30: APTT 50.6 H Micro: Microbiology 07/24/23 11:00 Urine, Catheterized Urine Culture - Final Enterobacter cloacae complex Rhythm Strip Rhythm Strip: Sinus Rhythm Rate: 90 Ectopy: None Physical Exam Const alert, no apparent distress and well nourished Constitutional Narrative: Older, chronically ill-appearing, white female, lying in bed, slightly confused, cousins at bedside, patient still appears sleepy, intermittently argumentative HEENT head/scalp atraumatic and moist oral mucous membranes HEENT Narrative: Dentition is poor, Mallampati is 1-2, no thrush Head and Scalp: normocephalic Eyes PERRL, EOMs intact bilaterally and conjunctivae normal Eyes Narrative: No scleral icterus Neck no lymphadenopathy and supple Neck Narrative: Trachea midline, no thyroid enlargement and Resp normal respiratory effort, no retractions, no use of accessory muscles and clear to auscultation bilaterally Auscultation: Negative for rales, rhonchi or wheezes Cardio regular rate, regular rhythm, S1 normal heart sound, S2 normal heart sound, no murmurs, no rub and no gallops; Negative for no clicks Cardio Narrative: Normal sinus rhythm, click noted GI normal to inspection, nondistended, normoactive bowel sounds, soft to palpation and non-tender Extremity Extremity Narrative: Chronic bilateral lower extremity edema that is pitting in nature and 2+ bilateral lower extremities, LLOYD hose in place Skin skin turgor normal, no jaundice, no petechiae and no mottling Skin Narrative: Postoperative dressing in place, skin is thin with abrasion on left forearm due to fall Neuro oriented x3 and no focal motor deficits Neuro Narrative: Decreased movement left upper extremity and left lower extremity due to fractures, marked generalized weakness noted Speech: speech normal Psych Psych Narrative: Patient sleepy but interacting with her family, intermittent argumentative and agitated Assessment & Plan Assessment/Plan (1) Periprosthetic fracture around internal prosthetic left hip joint, initial encounter: (2) Scapular fracture: (3) Urinary tract infection: (4) Anticoagulant long-term use: (5) Elevated INR (international normalized ratio) due to prior anticoagulant medication ingestion: (6) MURRAY (acute kidney injury): (7) Hyperkalemia: (8) Toxic metabolic encephalopathy: (9) Status post revision of total hip replacement: PLAN: Plan Left periprosthetic hip fracture -POD 2 BORIS revision -Continue ordered pain management -As needed bowel regimen available -PT/OT following -Weightbearing as tolerated -Heparin drip and okay per orthopedic surgery to restart Coumadin--> will need heparin drip until INR is therapeutic at 2.5-3.5 -Patient will need to follow-up in 2 weeks with orthopedic surgery for x-rays and postoperative wound check Left scapular fracture -Nonoperative management recommended -Maintain sling x 3 weeks then start range of motion as tolerated -Orthopedic surgery is hoping to allow the patient use the left upper extremity with a walker and weightbearing through that area by 6 weeks -Ambulation postoperatively will be complicated Toxic/metabolic encephalopathy -Stop cefepime and transition to meropenem -Decrease oxycodone dose to 2.5 mg Enterobacter UTI -Will transition off cefepime and start meropenem to complete treatment due to mental status changes and cefepime can cause neurotoxicity in the elderly -Day 3 of 7 for antibiotics MURRAY -Christiansen in place -Check CT of the abdomen pelvis due to it being later in the day to rule out any signs of obstruction his urine output has been poor despite IV fluids -Was given 1 L IV bolus with 25 of albumin with no real changes in urine output and has been running IV fluids at 100 cc/h -Baseline serum creatinine runs between 0.4 and 0.7 -Current serum creatinine is 1.18 -Suspect may be related to blood pressure and surgery -Urine lites are pending to assess for Annia Hyperkalemia -Resolved DM-2 -Hemoglobin A1c on last admission 06/15/2023 was 13.6 -A1c at this admission is 6.8 -Continue home a.m. basal insulin at 15 units -Will hold home basal insulin 10 units at at bedtime until p.o. intake improves -A.m. 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 -Mechanical mitral valve placement in 09/29/2001/PAF -Continue Coumadin 6 mg daily -Continue heparin drip -Current INR is 2.0 -Goal INR is 2.5-3.5 -Repeat INR daily History of Hypertension -Patient is no longer on any antihypertensives -Monitor blood pressure while hospitalized Hyperlipidemia -Continue home atorvastatin -Continue home colestipol GERD -Continue home PPI twice daily Vitamin D deficiency -Continue vitamin D supplementation DVT prophylaxis -Continue heparin drip and Coumadin CODE STATUS -DNR CCA with no intubation as verified on admission Charges/Coding Visit Charges Inpatient E&M: 66895 [facility]
--- NOTE | 2023-07-28 15:57 | CT_ITS ---
EXAM: CT ABDOMEN AND PELVIS WITHOUT INTRAVENOUS CONTRAST CLINICAL INDICATION: decreased urine output TECHNIQUE: Helically acquired images were obtained of the abdomen and pelvis without intravenous contrast. This CT exam was performed using one or more of the following dose reduction techniques: automated exposure control, adjustment of the mA and/or kV according to patient size, and/or use of iterative reconstruction technique. COMPARISON: No relevant prior studies available. FINDINGS: LOWER THORAX: Bilateral pleural effusions. No cardiomegaly. ABDOMEN: LIVER: Unremarkable. Homogeneous. GALLBLADDER AND BILE DUCTS: Distended gallbladder. Multiple small dependent stones in the gallbladder. No intra- or extrahepatic biliary ductal dilation. PANCREAS: Unremarkable. No focal cystic mass. SPLEEN: Unremarkable. Normal size without focal cystic or solid mass. ADRENALS: Unremarkable. No nodules. KIDNEYS AND URETERS: Unremarkable. Normal renal size and position. No hydronephrosis. STOMACH AND BOWEL: Unremarkable. No stomach or bowel distention. No focal inflammatory change. PELVIS: APPENDIX: No evidence of acute appendicitis. BLADDER: Bladder is catheterized and decompressed. REPRODUCTIVE: Unremarkable as visualized. No mass. ABDOMEN and PELVIS: INTRAPERITONEAL SPACE: Unremarkable. No ascites or other fluid collection. No free air. BONES/JOINTS: Left hip replacement. Fluid and gas surrounding the left hip and proximal femur consistent with recent surgery. Old healed left pubic ramus fractures. No suspicious lytic or blastic abnormality. SOFT TISSUES: Extensive soft tissue edema. No discrete abdominal or pelvic wall hernia. VASCULATURE: Unremarkable. Abdominal aorta is normal in caliber. LYMPH NODES: Unremarkable. No enlarged lymph nodes. CT/Abdomen/Pelvis without Cont IMPRESSION: 1. Pleural effusions. 2. Extensive soft tissue edema consistent with anasarca/third spacing. 3. No renal stones or obstructive uropathy. 4. Postsurgical changes left hip. 5. Cholelithiasis. Electronically Signed: Vickie Desai MD at 17:17 EST Reading Location ID and State: [id number] / Tel , Service support ,
[2023-07-28 18:01] LABS: Bedside Glucose 54 mg/dL (74-106)
[2023-07-28 18:47] LABS: Urine Sodium 12 mmol/L (Not Establ.)
[2023-07-28 19:45] VITALS: BP 117/69; PULSE 76; RESP 16; TEMP 36.6; O2SAT 97
[2023-07-28 20:30] LABS: Partial Thromboplast Time 58.4 Seconds (24.1-36.2)
[2023-07-28] MEDS: Mirtazapine 15 MG Tablet PO (21:38)
[2023-07-29 02:00] VITALS: BP 117/70; PULSE 98; RESP 16; TEMP 36.6; O2SAT 97
[2023-07-29] MEDS: oxyCODONE 5 MG Tablet 2.5 MG PO ×4 (02:04→16:23)
[2023-07-29] MEDS: 0.9% Saline Lock 10 ML Syringe IV ×2 (02:04→08:11)
[2023-07-29] MEDS: Lactated Ringers 1,000 ML 100 ML IV (02:07)
[2023-07-29 02:20] LABS: Partial Thromboplast Time 68.1 Seconds (24.1-36.2)
[2023-07-29 02:29] LABS: International Normalized Ratio 3.6; Prothrombin Time (Protime)PT. 36.7 SECONDS (11.7-14.9)
[2023-07-29 02:29] LABS: Bedside Glucose 73 mg/dL (74-106)
[2023-07-29 05:12] LABS: Hematocrit 36.4 % (37-47); Hemoglobin 10.5 g/dL (12.0-15.0); Mean Corp Hgb Conc 28.8 g/dL (32-36); Mean Corpuscular Hgb 29.2 pg (27.0-32.0); Mean Corpuscular Volume 101.4 fL (81-99); POSITIVE MORPHOLOGY YES; Platelet Count 257 K/mm3 (150-450); Red Blood Count 3.59 M/mm3 (4.2-5.4); White Blood Count 8.9 K/mm3 (4.4-11.0)
[2023-07-29 05:19] LABS: Scan Indicated on CBC? Y/N YES- FLAGS NOTED
[2023-07-29 05:38] LABS: ALB/GLOB Ratio 0.9 RATIO (0.9-2.4); AST(SGOT) 79 U/L (15-37); Alanine Aminotransfer ALT/SGPT 39 U/L (13-56); Albumin, Serum 2.4 g/dL (3.2-5.0); Alkaline Phosphatase 151 U/L (45-117); Anion Gap 5 (5-15); BUN 58 mg/dL (7-18); BUN/Creat Ratio 43.3 RATIO (10-20); Chloride 108 mmol/L (98-107); Creatinine, Serum 1.34 mg/dL (0.55-1.02); EST Glomerular Filtration Rate 41 mL/min (>60); Est Glom Filt Rate - Afr Amer 50 mL/min (>60); Estimated Creatinine Clearance 28.69 ml/min; Globulin 2.8 g/dL (2.2-4.2); Glucose 57 mg/dL (74-106); Magnesium 2.1 mg/dL (1.6-2.6); Phosphorus 3.6 mg/dL (2.5-4.9); Potassium 5.4 mmol/L (3.5-5.1); Protein, Total 5.2 g/dL (6.4-8.2); Sodium Level 139 mmol/L (136-145)
[2023-07-29] MEDS: Gemfibrozil 600 MG Tablet PO (06:19)
[2023-07-29] MEDS: Acetaminophen 500 MG Tablet 1000 MG PO ×2 (06:19→14:34)
[2023-07-29 06:40] LABS: Bedside Glucose 89 mg/dL (74-106)
[2023-07-29 07:21] LABS: Differential Comment SCANNED
[2023-07-29 07:56] VITALS: BP 120/60; PULSE 113; RESP 18; TEMP 36.6; O2SAT 96
[2023-07-29] MEDS: Colestipol 1 GM TABLET PO (08:11)
[2023-07-29] MEDS: Juven (unflavored) Packet 1 PACKET PO (08:11)
[2023-07-29] MEDS: Multivitamins,Therapeutic Tablet 1 TABLET PO (08:12)
[2023-07-29] MEDS: Atorvastatin Calcium 40 MG Tablet PO (08:12)
[2023-07-29] MEDS: Calcium Carbonate 500 MG Tablet PO ×2 (08:12→12:08)
[2023-07-29] MEDS: Cholecalciferol (VIT D3) 25 MCG TABLET (1,000 UNITS) 50 MCG PO (08:12)
[2023-07-29] MEDS: Pantoprazole Sodium 40 MG Tablet PO (08:13)
[2023-07-29] MEDS: Meropenem 500 MG in 0.9% Normal Saline (50mL MB+) 50 ML 100 MG IV ×2 (08:46→23:27)
[2023-07-29] MEDS: Sodium Polystyrene Sulfonate 15 GM/60 ML UDC 30 GM PO (08:47)
[2023-07-29 09:32] VITALS: O2SAT 96
--- NOTE | 2023-07-29 10:10 | CASEMGMT ---
Social Work Pt admitted from [facility] and plans to return when able. Precert was started on 07/28 and detemination not made at this time. Pt participated better with therapy today. DC insurance administrative assistant updated and to send updated clinicals to [facility] for insurance precert. Plan: [facility], pending precert ADRIENNE Romero
--- NOTE | 2023-07-29 10:32 | CASEMGMT ---
Discharge Planning Updates sent to [facility] via [facility]. Adriana Huynh, Discharge Planning Asst.
--- NOTE | 2023-07-29 10:50 | PCM.PN.ORT ---
Documented by User: [email or web address] Combs 07/29/23 10:55 Subjective Subjective patient is s/p revision left total hip arthroplasty after periprosthetic fracture and remote greater trochanteric fracture with Dr. Loyd and Dr. Weston on 07/26/2023. Midline placed yesterday. patient has had some increased confusion and AMS. ABX changed to meropenem for concern for cephepime contributing as well as decrease of oxycodone. Objective Data Objective Data Vital Signs: Vital Signs Temp Pulse Resp BP Pulse Ox O2 Del Method O2 Flow Rate 97.8 F 113 H 18 120/60 96 Room Air 2 07/29/23 07:56 07/29/23 07:56 07/29/23 07:56 07/29/23 07:56 07/29/23 09:32 07/29/23 09:32 07/27/23 01:15 Oxygen Flow Rate (L/min) 2 Oxygen Delivery Method Room Air Weight: 70.76 kg Body Mass Index (BMI) 28.5 Intake & Output: Intake and Output for Last 24 Hours 07/27/23 07/28/23 07/29/23 23:59 23:59 23:59 Intake Total 2795.60 / 2795.60 3747.80 / 3747.80 1709.34 / 1709.34 Output Total 425 / 425 75 / 175 400 / 400 Balance 2370.60 / 2370.60 3672.80 / 3572.80 1309.34 / 1309.34 Lab / Micro Data 07/29/23 04:50 07/29/23 04:50 Labs: Laboratory Results - last 24 hr 07/28/23 11:08: POC Glucose 76 07/28/23 13:27: Ur Random Sodium 12, Urine Creatinine 107.00 07/28/23 13:30: APTT 50.6 H 07/28/23 17:32: POC Glucose 54 L 07/28/23 19:55: APTT 58.4 H 07/28/23 21:30: POC Glucose 73 L 07/29/23 01:55: PT 36.7 H, INR 3.6, APTT 68.1 H 07/29/23 04:50: WBC 8.9, RBC 3.59 L, Hgb 10.5 L, Hct 36.4 L, MCV 101.4 H, MCH 29.2, MCHC 28.8 L, RDW Std Deviation 69.0 H, RDW Coeff of Tk 19.0 H, Plt Count 257, MPV 11.0, Differential Comment SCANNED, Sodium 139, Potassium 5.4 H, Chloride 108 H, Carbon Dioxide 26.0, Anion Gap 5, BUN 58 H, Creatinine 1.34 H, Estim Creat Clear Calc 28.69, Est GFR (MDRD) Af Amer 50 L, Est GFR (MDRD) Non-Af 41 L, BUN/Creatinine Ratio 43.3 H, Glucose 57 L, Calcium 8.0 L, Phosphorus 3.6, Magnesium 2.1, Total Bilirubin 2.40 H, AST 79 H, ALT 39, Alkaline Phosphatase 151 H, Total Protein 5.2 L, Albumin 2.4 L, Globulin 2.8, Albumin/Globulin Ratio 0.9 07/29/23 06:15: POC Glucose 89 Micro: Microbiology 07/24/23 11:00 Urine, Catheterized Urine Culture - Final Enterobacter cloacae complex Radiography Diagnostic Testing: Radiology Impression Abdomen/Pelvis CT 07/28/23 15:57 IMPRESSION: 1. Pleural effusions. 2. Extensive soft tissue edema consistent with anasarca/third spacing. 3. No renal stones or obstructive uropathy. 4. Postsurgical changes left hip. 5. Cholelithiasis. Electronically Signed: Vickie Desai MD at 17:17 EST Reading Location ID and State: [id number] / Tel , Service support , Rhythm Strip Rhythm Strip: Sinus Rhythm Rate: 90 Ectopy: None Assessment & Plan Assessment/Plan (1) Status post revision of total hip replacement: PLAN: Patient is postop day 3 status post revision left total hip after periprosthetic fracture. 1. continue PT today. Weightbearing as tolerated 2. Discharge per primary team. 3. Patient will follow up for post op appointment in 2 weeks in the office with x-rays. This will need to be arranged. 4. labs reviewed. appear stable. 6. DVT prophylaxis : resume warfarin. INR bridging per primary. 7 Pain control: tylenol and oxycodone prn pain 8. maintain wound vac. plan to d/c on post op day 7. 9. left upper extremity plan. No acute intervention conservative treatment options is sling nonweightbearing to left upper extremity. Plan for one-sided hemiwalker. 10. Ideally prophylactic antibiotics doxycycline 100 mg twice daily for 2 weeks after surgery. (2) Periprosthetic fracture around internal prosthetic left hip joint, initial encounter: (3) Nondisplaced fracture of left scapula: Documented by User: Dr. Apollo Loyd DO 07/29/23 11:13 Subjective Subjective Patient seen and examined. Patient up to chair today. Patient is able to hold a conversation and answers questions appropriately, but does shout out for nursing unexpectedly. She denies any significant pain at rest her left hip. Midline placed yesterday. patient has had some increased confusion and altered mental status. ABX changed to meropenem for concern for cephepime contributing as well as decrease of oxycodone. Denies fevers, chills, nausea vomiting, chest pain or shortness of breath. Objective Data Lab / Micro Data 07/29/23 04:50 07/29/23 04:50 Physical Exam Narrative General - A&Ox person and place, NAD. VSS/AF Left lower extremity -incisional wound VAC in place, scant serosanguineous drainage. Good suction seal. No visualized erythema. SILT Sural, Saphenous, SPN, DPN, Tibial N. distributions. DP, PT 2+. BCR. DF, PF, EHL /5. No calf TTP. Assessment & Plan Assessment/Plan (1) Status post revision of total hip replacement: PLAN: POD# 3 s/p left total hip arthroplasty revision of femoral component with ORIF - Pain control-Tylenol. Judicious use of narcotics due to altered mental status. - Medicine following for medical management - PT/OT -weight-bear as tolerated left lower extremity, no active abduction x 6 weeks - DVT PPX -Coumadin has been restarted and has reached a therapeutic range - Case management - D/C planning -Maintain incisional wound VAC, plan to remove postoperative day #7 and transition to dry sterile dressing changes. -I would recommend 14 days antibiotic prophylaxis postoperatively. Meropenem should have good coverage against MSSA. Recommended doxycycline 100 mg twice daily orally once antibiotics for UTI are completed. If discharge antibiotics for UTI do not have MSSA coverage, however recommend adding doxycycline to the routine upon discharge. -I would recommend a 2-week follow-up with myself in the office for staple removal and wound check. I will follow peripherally at this point. Please not hesitate to call if any questions or concerns arise. (2) Periprosthetic fracture around internal prosthetic left hip joint, initial encounter: PLAN: See above (3) Nondisplaced fracture of left scapula: PLAN: Nonoperative management Maintain sling x 3 weeks. 1 side hemiwalker to mobilize. May remove sling in bed. Range of motion as tolerated left elbow wrist and hand.
--- NOTE | 2023-07-29 11:30 | CASEMGMT ---
Met with patient to complete MADISON form. MADISON form explained to patient who voiced understanding and signed form. Original form placed in pt?s chart and copy provided to?patient. Adriana Huynh, Discharge Planning Asst
[2023-07-29 11:58] LABS: Bedside Glucose 118 mg/dL (74-106)
--- NOTE | 2023-07-29 12:41 | PN.HOSP_ITS ---
Reason for Visit Reason for Visit: Left hip pain status post fall Objective Data Objective Data Vital Signs: Vital Signs Temp Pulse Resp BP Pulse Ox O2 Del Method O2 Flow Rate 97.8 F 113 H 18 120/60 96 Room Air 2 07/29/23 07:56 07/29/23 07:56 07/29/23 07:56 07/29/23 07:56 07/29/23 09:32 07/29/23 09:32 07/27/23 01:15 Oxygen Flow Rate (L/min) 2 Oxygen Delivery Method Room Air Weight: 70.76 kg Body Mass Index (BMI) 28.5 Intake & Output: Intake and Output for Last 24 Hours 07/27/23 07/28/23 07/29/23 23:59 23:59 23:59 Intake Total 2795.60 / 2795.60 3747.80 / 3747.80 1754.34 / 1754.34 Output Total 425 / 425 75 / 175 400 / 400 Balance 2370.60 / 2370.60 3672.80 / 3572.80 1354.34 / 1354.34 Lab / Micro Data 07/29/23 04:50 07/29/23 04:50 Labs: Laboratory Results - last 24 hr 07/28/23 13:27: Ur Random Sodium 12, Urine Creatinine 107.00 07/28/23 13:30: APTT 50.6 H 07/28/23 17:32: POC Glucose 54 L 07/28/23 19:55: APTT 58.4 H 07/28/23 21:30: POC Glucose 73 L 07/29/23 01:55: PT 36.7 H, INR 3.6, APTT 68.1 H 07/29/23 04:50: WBC 8.9, RBC 3.59 L, Hgb 10.5 L, Hct 36.4 L, MCV 101.4 H, MCH 29.2, MCHC 28.8 L, RDW Std Deviation 69.0 H, RDW Coeff of Tk 19.0 H, Plt Count 257, MPV 11.0, Differential Comment SCANNED, Sodium 139, Potassium 5.4 H, Chloride 108 H, Carbon Dioxide 26.0, Anion Gap 5, BUN 58 H, Creatinine 1.34 H, Estim Creat Clear Calc 28.69, Est GFR (MDRD) Af Amer 50 L, Est GFR (MDRD) Non-Af 41 L, BUN/Creatinine Ratio 43.3 H, Glucose 57 L, Calcium 8.0 L, Phosphorus 3.6, Magnesium 2.1, Total Bilirubin 2.40 H, AST 79 H, ALT 39, Alkaline Phosphatase 151 H, Total Protein 5.2 L, Albumin 2.4 L, Globulin 2.8, Albumin/Globulin Ratio 0.9 07/29/23 06:15: POC Glucose 89 07/29/23 11:40: POC Glucose 118 H Micro: Microbiology 07/24/23 11:00 Urine, Catheterized Urine Culture - Final Enterobacter cloacae complex Radiography Diagnostic Testing: Radiology Impression Abdomen/Pelvis CT 07/28/23 15:57 IMPRESSION: 1. Pleural effusions. 2. Extensive soft tissue edema consistent with anasarca/third spacing. 3. No renal stones or obstructive uropathy. 4. Postsurgical changes left hip. 5. Cholelithiasis. Electronically Signed: Vickie Desai MD at 17:17 EST Reading Location ID and State: [id number] / Tel , Service support , Rhythm Strip Rhythm Strip: Sinus Rhythm Rate: 90 Ectopy: None Physical Exam Const alert, no apparent distress and well nourished Constitutional Narrative: Older, chronically ill-appearing, white female, sitting up in a chair at the bedside, slightly reclined and eating breakfast, oriented to place, self, and month but not year today so mentation appears to be improving HEENT head/scalp atraumatic and moist oral mucous membranes HEENT Narrative: Dentition is poor, Mallampati is 2, no thrush Head and Scalp: normocephalic Resp normal respiratory effort, no retractions, no use of accessory muscles and clear to auscultation bilaterally Auscultation: Negative for rales, rhonchi or wheezes Cardio regular rhythm, S1 normal heart sound, S2 normal heart sound, no murmurs, no rub and no gallops; Negative for no clicks Cardio Narrative: Irregularly irregular rhythm with controlled rate, click noted GI normal to inspection, nondistended, normoactive bowel sounds, soft to palpation and non-tender Extremity Extremity Narrative: Chronic bilateral lower extremity edema that is pitting in nature and 2+ bilateral lower extremities, LLOYD hose in place, SCDs in place Neuro no focal motor deficits Neuro Narrative: Decreased movement left upper extremity and left lower extremity due to fractures, marked generalized weakness noted Sensorium / Orientation: awake, alert, oriented to person and oriented to place Speech: speech normal Psych affect normal Psych Narrative: less agitation and more interactive Assessment & Plan Assessment/Plan (1) Periprosthetic fracture around internal prosthetic left hip joint, initial encounter: (2) Scapular fracture: (3) Urinary tract infection: (4) Anticoagulant long-term use: (5) Elevated INR (international normalized ratio) due to prior anticoagulant medication ingestion: (6) MURRAY (acute kidney injury): (7) Hyperkalemia: (8) Toxic metabolic encephalopathy: (9) Status post revision of total hip replacement: PLAN: Plan Left periprosthetic hip fracture -POD 3 BORIS revision -Continue ordered pain management -As needed bowel regimen available -PT/OT following -Weightbearing as tolerated -Patient has been very functionally limited and refusing to get out of bed however she is out of bed today and I encouraged her to continue to move -I-S is ordered and encouraged patient strongly to utilize to prevent dev elopment of pneumonia -Is now therapeutic and heparin drip will be discontinued -Patient will need to follow-up in 2 weeks with orthopedic surgery for x-rays and postoperative wound check Left scapular fracture -Nonoperative management recommended -Maintain sling x 3 weeks then start range of motion as tolerated -Orthopedic surgery is hoping to allow the patient use the left upper extremity with a walker and weightbearing through that area by 6 weeks -Ambulation postoperatively will be complicated Toxic/metabolic encephalopathy -Mentation has improved since decreasing oxycodone and transitioning off cefepime to meropenem -Decrease oxycodone dose to 2.5 mg Enterobacter UTI -Will transition off cefepime and start meropenem to complete treatment due to mental status changes and cefepime can cause neurotoxicity in the elderly -Day 4 of 7 for antibiotics -Will plan to transition to Cipro to complete dosing at discharge MURRAY -Christiansen in place -CT of the abdomen pelvis was unremarkable for any signs of obstruction -Baseline serum creatinine runs between 0.4 and 0.7 -Serum creatinine is stabilized at 1.34 today which was what it was yesterday -Suspect may be related to blood pressure and surgery -It was consistent with prerenal and I suspect this was related to her hypotension following surgery Hyperkalemia -Mild -Will give Kayexalate x 1 dose -Heparin drip will be discontinued DM-2 -Hemoglobin A1c on last admission 06/15/2023 was 13.6 -A1c at this admission is 6.8 -Will give Lantus 10 units at at bedtime and hold the rest of her insulin until her oral intake improves as she has had no significant elevated blood sugars and has had some intermittent borderline low blood sugars -A.m. 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 -Mechanical mitral valve placement in 09/29/2001/PAF -Continue Coumadin but reduce to 4 mg from 6 mg daily with her INR being 3.6 today -Stop heparin drip with therapeutic INR -Current INR is 3.6 -Goal INR is 2.5-3.5 -Repeat INR daily History of Hypertension -Patient is no longer on any antihypertensives -Monitor blood pressure while hospitalized Hyperlipidemia -Continue home atorvastatin -Continue home colestipol GERD -Continue home PPI twice daily Vitamin D deficiency -Continue vitamin D supplementation DVT prophylaxis -INR is therapeutic at 3.6 CODE STATUS -DNR CCA with no intubation as verified on admission Charges/Coding Visit Charges Inpatient E&M: 28707 Subs Hosp L2
--- NOTE | 2023-07-29 13:07 | CASEMGMT ---
Discharge Planning Updated [facility] that patient will return on oral antibiotics. Adriana Huynh, Discharge Planning Asst.
[2023-07-29 14:29] VITALS: BP 105/80; PULSE 101; RESP 20; TEMP 36.8; O2SAT 94
[2023-07-29] MEDS: 0.9% Normal Saline (250mL Bag) 250 ML 15 ML IV (14:33)
[2023-07-29] MEDS: Ondansetron 4 MG/2 ML Vial IV (14:33)
[2023-07-29 17:26] LABS: Bedside Glucose 115 mg/dL (74-106)
[2023-07-30] VITALS (7 sets, daily range): BP systolic 97–133; BP diastolic 55–73; PULSE 63–117; RESP 16–18; TEMP 36.3–36.8; O2SAT 92–98
[2023-07-30 00:05] LABS: Bedside Glucose 142 mg/dL (74-106)
[2023-07-30] MEDS: Haloperidol Lactate 5 MG/ML Vial 1 MG IM ×2 (02:22→04:24)
--- NOTE | 2023-07-30 04:05 | PCM.HOSP.N ---
Hospitalist Note Patient with agitation which from discussion with staff as been a frequent q HS issue. Patient unwilling to take oral. Will trial low dose IM haldol. Patient of note removed her midline.
[2023-07-30] MEDS: Acetaminophen 500 MG Tablet 1000 MG PO (05:13)
[2023-07-30] MEDS: oxyCODONE 5 MG Tablet 2.5 MG PO ×2 (05:17→09:23)
[2023-07-30] MEDS: Gemfibrozil 600 MG Tablet PO (05:17)
[2023-07-30] MEDS: Ondansetron 4 MG/2 ML Vial IV (05:20)
[2023-07-30 06:15] LABS: Absolute Lymphocyte Count 0.26 X10^3/uL (0.83-4.51); Absolute Neutrophil Count 7.3 X10^3/uL (2.0-7.7); Basophil# 0.02 X10^3/uL; Basophil% 0.2 % (0-1); Eosinophil# 0.04 X10^3/uL; Eosinophils% 0.5 % (0-5); Hematocrit 39.6 % (37-47); Hemoglobin 11.6 g/dL (12.0-15.0); Lymphocyte # 0.26 X10^3/ul (0.83-4.51); Lymphocyte % 3.2 % (19-41); Mean Corp Hgb Conc 29.3 g/dL (32-36); Mean Corpuscular Hgb 29.4 pg (27.0-32.0); Mean Corpuscular Volume 100.5 fL (81-99); Mean Platelet Vol. 10.7 fl (6.2-12.0); Monocyte# 0.46 X10^3/uL; Monocyte% 5.7 % (0-10); NRBC Flagged by Analyzer 0 % (0-5); Neutrophil # 7.26 X10^3/uL (2.7-7.7); Neutrophil % 89.5 % (47-70); POSITIVE DIFFERENTIAL YES; POSITIVE MORPHOLOGY YES; Platelet Count 295 K/mm3 (150-450); RBC Distribution Width CV 19.2 % (11.6-14.6); RBC Distribution Width SD 70.9 fl (35.1-43.9); Red Blood Count 3.94 M/mm3 (4.2-5.4); White Blood Count 8.1 K/mm3 (4.4-11.0)
[2023-07-30 06:16] LABS: Differential Indicated SCAN CRITERIA MET
[2023-07-30 06:24] LABS: Prothrombin Time (Protime)PT. 58.8 SECONDS (11.7-14.9)
[2023-07-30 06:31] LABS: International Normalized Ratio 6.6
[2023-07-30 06:35] LABS: Differential Comment SCANNED
[2023-07-30 06:36] LABS: Anion Gap 9 (5-15); BUN 54 mg/dL (7-18); BUN/Creat Ratio 47.8 RATIO (10-20); Calcium,Total 8.3 mg/dL (8.5-10.1); Chloride 106 mmol/L (98-107); Creatinine, Serum 1.13 mg/dL (0.55-1.02); EST Glomerular Filtration Rate 50 mL/min (>60); Est Glom Filt Rate - Afr Amer 60 mL/min (>60); Estimated Creatinine Clearance 34.02 ml/min; Glucose 170 mg/dL (74-106); Macrocytosis 1+; Polychromasia RARE; Potassium 4.6 mmol/L (3.5-5.1); Sodium Level 139 mmol/L (136-145)
[2023-07-30] MEDS: Insulin Lispro 100 UNIT/ML INSULN.PEN SC ×2 (06:41→11:17)
[2023-07-30 09:10] LABS: International Normalized Ratio 7.1; Prothrombin Time (Protime)PT. 62.7 SECONDS (11.7-14.9)
[2023-07-30] MEDS: Meropenem 500 MG in 0.9% Normal Saline (50mL MB+) 50 ML 100 MG IV ×2 (09:23→22:21)
[2023-07-30] MEDS: 0.9% Saline Lock 10 ML Syringe IV ×5 (09:23→23:41)
[2023-07-30] MEDS: RisperiDONE 0.25 MG Tablet PO (09:23)
[2023-07-30] MEDS: Pantoprazole Sodium 40 MG Tablet PO (09:24)
[2023-07-30] MEDS: Insulin Glargine-YFGN 100 UNIT/ML Pen 10 UNIT SC (09:25)
[2023-07-30] MEDS: Digoxin 125 MCG Tablet PO (09:26)
[2023-07-30 11:42] LABS: Bedside Glucose 167 mg/dL (74-106)
[2023-07-30] MEDS: LORazepam 2 MG/ML Syringe 0.5 MG IV ×3 (12:16→23:40)
--- NOTE | 2023-07-30 12:19 | CASEMGMT ---
Social Work Pt's insurance denied skilled stay at nursing facility. [facility] states they would be able to take pt back under Medicaid pending. Per [facility], level of care is not needed at this time as they do not yet have a pending number and they will work with family on this. SW updated at this time by physician that pt is appropriate for hospice care with an evaluation for IPU. SW entered pt's room. Pt's daughter, grand daughter and other family members present. Pt has a [employer] [facility] [employer]. PATRICIA inquired with dgt Ludmila regarding Jatin's knowledge of the hospice consult. Ludmila states Jatin is aware and called Jatin and put him on speaker phone. PATRICIA spoke with Jatin and he is agreeable to hospice consult. Emotional support provided to pt's family. Phone call to [facility], referral made and PATRICIA requested that Jatin be called to set up appointment. Milk Truck Driver to fax clinical information. ADRIENNE Romero
--- NOTE | 2023-07-30 16:12 | CASEMGMT ---
Social Work SW placed call to pts [facility]CP[facility] Jatin to check on status of hospice referral. [place] states that meeting is set for 929. Physician and charge nurse updated. ADRIENNE Romero
--- NOTE | 2023-07-30 16:17 | PCM.PN.HOSP ---
Reason for Visit Reason for Visit: Left hip pain after mechanical fall Subjective Subjective Patient with intermittent delirium and agitation through the night. Daughter and granddaughter at bedside. We discussed her overall decline over the past several months with need for more frequent hospitalizations and physical debility. She appears to be more malnourished and her oral intake has been poor. Clinically she is deteriorating despite medical care and they wish to proceed with hospice at this time. Hospice meeting is planned for tomorrow morning at 930. CODE STATUS will be changed to DNR CC and I will not comfort related medications except for antibiotics to treat her UTI will be discontinued. P.o. intake has been poor and she is not eating much nutrition. She is intermittently refusing medications and care. Objective Data Objective Data Vital Signs: Vital Signs Temp Pulse Resp BP Pulse Ox O2 Del Method O2 Flow Rate 97.4 F L 63 16 111/70 96 Room Air 2 07/30/23 16:03 07/30/23 16:03 07/30/23 16:03 07/30/23 16:03 07/30/23 16:03 07/30/23 16:03 07/27/23 01:15 Oxygen Flow Rate (L/min) 2 Oxygen Delivery Method Room Air Weight: 70.76 kg Body Mass Index (BMI) 28.5 Intake & Output: Intake and Output for Last 24 Hours 07/28/23 07/29/23 07/30/23 23:59 23:59 23:59 Intake Total 3747.80 / 3747.80 2196.34 / 2196.34 760 / 760 Output Total 75 / 175 1550 / 1550 400 / 400 Balance 3672.80 / 3572.80 646.34 / 646.34 360 / 360 Lab / Micro Data 07/30/23 05:50 07/30/23 05:50 Labs: Laboratory Results - last 24 hr 07/29/23 17:06: POC Glucose 115 H 07/29/23 23:41: POC Glucose 142 H 07/30/23 05:50: WBC 8.1, RBC 3.94 L, Hgb 11.6 L, Hct 39.6, MCV 100.5 H, MCH 29.4, MCHC 29.3 L, RDW Std Deviation 70.9 H, RDW Coeff of Tk 19.2 H, Plt Count 295, MPV 10.7, Immature Gran % (Auto) 0.900, Neut % (Auto) 89.5 H, Lymph % (Auto) 3.2 L, [place] % (Auto) 5.7, Eos % (Auto) 0.5, Baso % (Auto) 0.2, Absolute Neuts (auto) 7.3, Absolute Lymphs (auto) 0.26 L, Nucleated RBC % 0, Differential Comment SCANNED, Polychromasia RARE, Macrocytosis 1+, PT 58.8 H, INR 6.6 H*, Sodium 139, Potassium 4.6, Chloride 106, Carbon Dioxide 24.0, Anion Gap 9, BUN 54 H, Creatinine 1.13 H, Estim Creat Clear Calc 34.02, Est GFR (MDRD) Af Amer 60, Est GFR (MDRD) Non-Af 50 L, BUN/Creatinine Ratio 47.8 H, Glucose 170 H, Calcium 8.3 L 07/30/23 08:05: PT 62.7 H, INR 7.1 H* 07/30/23 11:15: POC Glucose 167 H Micro: Microbiology 07/24/23 11:00 Urine, Catheterized Urine Culture - Final Enterobacter cloacae complex Rhythm Strip Rhythm Strip: Sinus Rhythm Rate: 90 Ectopy: None Physical Exam Const alert, no apparent distress and well nourished Constitutional Narrative: Older, chronically ill-appearing, white female, lying in bed, naked, refusing to allow nursing to place a new gown on and change her sheets, also refusing to take her medications, remains oriented to place, self, and month but not year which is consistent with yesterday's mental status exam HEENT head/scalp atraumatic and moist oral mucous membranes HEENT Narrative: Dentition is poor, lips are dry, Mallampati is 2, no thrush Head and Scalp: normocephalic Eyes PERRL, EOMs intact bilaterally and conjunctivae normal Eyes Narrative: No scleral icterus Neck no lymphadenopathy and supple Neck Narrative: Trachea midline, no thyroid enlargement and Resp normal respiratory effort, no retractions, no use of accessory muscles and clear to auscultation bilaterally Auscultation: Negative for rales, rhonchi or wheezes Cardio regular rate, regular rhythm, S1 normal heart sound, S2 normal heart sound, no murmurs, no rub and no gallops; Negative for no clicks Cardio Narrative: Click noted, now in sinus rhythm GI normal to inspection, nondistended, normoactive bowel sounds, soft to palpation and non-tender Extremity Extremity Narrative: Chronic bilateral lower extremity edema that is pitting in nature and 2+ bilateral lower extremities, LLOYD hose in place, SCDs in place Skin skin turgor normal, no jaundice, no petechiae and no mottling Skin Narrative: Postoperative dressing in place, skin is thin with abrasion on left forearm due to fall Neuro oriented x3 and no focal motor deficits Neuro Narrative: Decreased movement left upper extremity and left lower extremity due to fractures, marked generalized weakness noted Sensorium / Orientation: awake, alert, oriented to person and oriented to place Speech: speech normal Psych affect normal Psych Narrative: Agitated today with what appears to be hyperactive delirium Assessment & Plan Assessment/Plan (1) Periprosthetic fracture around internal prosthetic left hip joint, initial encounter: (2) Scapular fracture: (3) Urinary tract infection: (4) Anticoagulant long-term use: (5) Elevated INR (international normalized ratio) due to prior anticoagulant medication ingestion: (6) MURRAY (acute kidney injury): (7) Hyperkalemia: (8) Toxic metabolic encephalopathy: (9) Status post revision of total hip replacement: PLAN: Plan Assessment: Left periprosthetic hip fracture Left scapular fracture Toxic/metabolic encephalopathy Supratherapeutic INR Enterobacter UTI MURRAY Hyperkalemia DM-2 PAF/aortic valve stenosis/mechanical mitral valve History of Hypertension Hyperlipidemia GERD Vitamin D deficiency Plan: Extensive conversation with family today with regards to overall current status and what her status has been functionality and overall quality of life prior to admission. Family agrees that her quality has deteriorated significantly in the last year and both her daughter and granddaughter feel that she would not want to live this way and would like us to consult hospice -Hospice meeting planned for tomorrow morning at 930 -I do suspect the patient would be a candidate for the IPU at discharge -INR was supratherapeutic and given the fact she has a mechanical mitral valve and thrombosis of this valve would be detrimental I will repeat an INR in the a.m. just for Coumadin dosing purposes -Coumadin dose had been 6 but reduced to 4 mg yesterday and held on 07/30/2023 -Medication changes made to reflect comfort per family discussion today -CODE STATUS changed to DNR CC -As needed Ativan available as needed for agitation -Continue oxycodone but IV Dilaudid for breakthrough added for patient comfort -Await hospice meeting tomorrow for discharge planning Charges/Coding Visit Charges Inpatient E&M: 18776 Subs Hosp L3
[2023-07-30 16:30] LABS: Bedside Glucose 125 mg/dL (74-106)
[2023-07-30 22:42] LABS: Bedside Glucose 131 mg/dL (74-106)
[2023-07-31 06:26] VITALS: BP 115/46; PULSE 91; RESP 18; TEMP 36.7; O2SAT 93
[2023-07-31 06:34] LABS: Prothrombin Time (Protime)PT. 52.3 SECONDS (11.7-14.9)
[2023-07-31] MEDS: 0.9% Saline Lock 10 ML Syringe IV ×2 (06:35→10:51)
[2023-07-31] MEDS: LORazepam 2 MG/ML Syringe 0.5 MG IV ×2 (06:35→10:50)
[2023-07-31 06:37] LABS: International Normalized Ratio 5.7
[2023-07-31 07:01] LABS: Bedside Glucose 125 mg/dL (74-106)
[2023-07-31 08:00] VITALS: RESP 24
[2023-07-31] MEDS: Meropenem 500 MG in 0.9% Normal Saline (50mL MB+) 50 ML 100 MG IV (10:49)
[2023-07-31] MEDS: HYDROmorphone 0.5 MG/0.5 ML SYRINGE 0.25 MG IV (10:50)
--- NOTE | 2023-07-31 10:59 | DS.PCM_ITS ---
Providers Date of Admission: 07/24/23 Primary Care Physician: Dr. Gwen David MD Consultations 07/24/23 16:26 Consult: Orthopedics Routine Consulting Provider: Apollo Loyd Reason for Consult: Periprosthetic revision EMERGENT Consult: No Notified: Yes Date Notified: 07/24/23 Time Notified: 15:33 Method of Notification: ED Physician Initiated 07/24/23 21:33 Consult: Hospitalist Routine Consulting Provider: Apollo Loyd Reason for Consult: INR 8.7 EMERGENT Consult: No Notified: Yes Date Notified: 07/24/23 Time Notified: 21:34 Method of Notification: Text Reason For Visit: PERIPROSTHETIC HIP FRACTURE FOR REVISION Diagnosis Discharge Diagnosis (1) Periprosthetic fracture around internal prosthetic left hip joint, initial encounter: Status: Acute Code(s): M97.02XA - Periprosthetic fracture around internal prosthetic left hip joint, initial encounter (2) Scapular fracture: Status: Acute Code(s): S42.109A - Fracture of unspecified part of scapula, unspecified shoulder, initial encounter for closed fracture (3) Urinary tract infection: Status: Acute Code(s): N39.0 - Urinary tract infection, site not specified (4) Anticoagulant long-term use: Status: Acute Code(s): Z79.01 - superintendent container terminal (current) use of anticoagulants (5) Elevated INR (international normalized ratio) due to prior anticoagulant medication ingestion: Status: Acute Code(s): R79.1 - Abnormal coagulation profile (6) MURRAY (acute kidney injury): Status: Acute Code(s): N17.9 - Acute kidney failure, unspecified (7) Hyperkalemia: Status: Acute Code(s): E87.5 - Hyperkalemia (8) Toxic metabolic encephalopathy: Status: Acute Code(s): G92.8 - Other toxic encephalopathy (9) Status post revision of total hip replacement: Status: Acute Code(s): Z96.649 - Presence of unspecified artificial hip joint Plan Assessment: Left periprosthetic hip fracture Left scapular fracture Toxic/metabolic encephalopathy Supratherapeutic INR Enterobacter UTI MURRAY Hyperkalemia DM-2 PAF/aortic valve stenosis/mechanical mitral valve History of Hypertension Hyperlipidemia GERD Vitamin D deficiency Plan: Extensive conversation with family today with regards to overall current status and what her status has been functionality and overall quality of life prior to admission. Family agrees that her quality has deteriorated significantly in the last year and both her daughter and granddaughter feel that she would not want to live this way and would like us to consult hospice -Hospice meeting planned for tomorrow morning at 930 -I do suspect the patient would be a candidate for the IPU at discharge -INR was supratherapeutic and given the fact she has a mechanical mitral valve and thrombosis of this valve would be detrimental I will repeat an INR in the a.m. just for Coumadin dosing purposes -Coumadin dose had been 6 but reduced to 4 mg yesterday and held on 07/30/2023 -Medication changes made to reflect comfort per family discussion today -CODE STATUS changed to DNR CC -As needed Ativan available as needed for agitation -Continue oxycodone but IV Dilaudid for breakthrough added for patient comfort -Await hospice meeting tomorrow for discharge planning Medications at Discharge Home Medications omeprazole 40 mg capsule,delayed release 40 mg PO BID ACID REFLUX 06/09/23 warfarin 4 mg tablet 6 mg PO DAILY blood thinner 06/30/23 multivitamin (Daily Multi-Vitamin tablet) 1 tab PO DAILY vitamin 07/24/23 ertapenem 1 gram solution for injection 1 g IM Q24H #5 ea 07/31/23 warfarin 4 mg tablet (Jantoven) 4 mg PO DINNER #0 tabs 07/31/23 Weight / BMI Weight Weight: 70.76 kg Body Mass Index (BMI) 28.5 ABG / Lab / Microbiology Data 07/30/23 05:50 07/30/23 05:50 Laboratory: Laboratory Results - last 24 hr 07/30/23 11:15: POC Glucose 167 H 07/30/23 16:08: POC Glucose 125 H 07/30/23 22:18: POC Glucose 131 H 07/31/23 05:05: PT 52.3 H, INR 5.7 H* 07/31/23 06:29: POC Glucose 125 H Microbiology: Microbiology 07/24/23 11:00 Urine, Catheterized Urine Culture - Final Enterobacter cloacae complex Discharge Plan Admission Admit Date/Time: 07/24/23 15:28 Primary Reason for Your Visit: Left hip pain after fall Attending Provider: Monique Angel Primary Care Provider: Gwen David Consulting Providers: Apollo Loyd; Apollo Hsu; Adam Tate Discharge Orders/Prescriptions Prescriptions: New warfarin [Jantoven] 4 mg Tablet 4 mg PO DINNER Qty: 0 0RF Rx Instructions: On hold as INR is supratherapeutic would anticipate being able to restart tomorrow with goal INR of 2.5-3.5 for mechanical mitral valve ertapenem 1 gram recon soln 1 g IM Q24H Qty: 5 0RF Rx Instructions: x 1 day and then stop Continued omeprazole 40 mg capsule,delayed release(DR/EC) 40 mg PO BID Held warfarin 4 mg tablet 6 mg PO DAILY Hold Instructions: hold Discontinued atorvastatin 40 mg tablet 40 mg PO DAILY colestipol [Colestid] 1 gram tablet 1 g PO DAILY gemfibrozil [Lopid] 600 MG tablet 600 mg PO BIDAC diphenhydramine HCl [Benadryl] 25 mg Capsule 50 mg PO QHS cholecalciferol (vitamin D3) [Vitamin D3] 50 mcg (2,000 unit) Capsule 50 mcg PO DAILY insulin lispro [Humalog KwikPen Insulin] 100 unit/mL Insulin Pen See Protocol subcut TIDAC Qty: 0 0RF Protocol: 4. Sliding Scale Insulin High-Med Dosing Condition: 150-199 mg/dl = 2 units Condition: 200-259 mg/dl = 4 units Condition: 260-324 mg/dl = 6 units Condition: 325-374 mg/dl = 8 units Condition: 375-409 mg/dl = 10 units Condition: 410-449 mg/dl = 11 units Condition: Greater than 449 call physician Protocol Text: - Use for Total Daily Dose of Insulin 56-80 units - Patient who are insulin resistant or septic HIGH MEDIUM DOSING ALGORITHM polyethylene glycol 3350 17 gram Powder In Packet 17 g PO DAILY Qty: 0 0RF acetaminophen [Acetaminophen Extra Strength] 500 mg tablet 1,000 mg PO QHS PRN (Reason: pain) acetaminophen 325 mg capsule 325 mg PO Q4H PRN (Reason: pain) Patient Comments: DO NO EXCEED 4GM IN 24H mirtazapine [Remeron] 15 mg tablet 15 mg PO QHS oxycodone-acetaminophen [Percocet] 5-325 mg tablet 1 tab PO Q6H PRN (Reason: pain) 7 Days Qty: 28 0RF methocarbamol 500 mg tablet 500 mg PO 4X/DAY PRN PRN (Reason: Muscle pain/spasm) Qty: 40 0RF insulin glargine [Lantus Solostar U-100 Insulin] 100 unit/mL (3 mL) insulin pen 10 unit subcut QPM insulin glargine [Lantus Solostar U-100 Insulin] 100 unit/mL (3 mL) insulin pen 15 unit subcut BREAKFAST meclizine 12.5 mg tablet 12.5 mg PO TID PRN (Reason: DIZZINESS ) No Action multivitamin [Daily Multi-Vitamin] Tablet 1 tab PO DAILY Referrals / Follow Up: Gwen David MD [Primary Care Provider] - Disposition Disposition (needs filled in before D/C Order can be placed): Hospice in Medical Facility Charges/Coding Visit Charges Inpatient E&M: 96046 Disch Hosp >30min
--- NOTE | 2023-07-31 10:59 | PCM.DC.SUM ---
Providers Date of Admission: 07/24/23 Date of Discharge: 07/31/23 Primary Care Physician: Dr. Gwen David MD Consultations 07/24/23 16:26 Consult: Orthopedics Routine Consulting Provider: Apollo Loyd Reason for Consult: Periprosthetic revision EMERGENT Consult: No Notified: Yes Date Notified: 07/24/23 Time Notified: 15:33 Method of Notification: ED Physician Initiated 07/24/23 21:33 Consult: Hospitalist Routine Consulting Provider: Apollo Loyd Reason for Consult: INR 8.7 EMERGENT Consult: No Notified: Yes Date Notified: 07/24/23 Time Notified: 21:34 Method of Notification: Text Reason For Visit: PERIPROSTHETIC HIP FRACTURE FOR REVISION Diagnosis Discharge Diagnosis (1) Periprosthetic fracture around internal prosthetic left hip joint, initial encounter: Status: Acute Code(s): M97.02XA - Periprosthetic fracture around internal prosthetic left hip joint, initial encounter (2) Scapular fracture: Status: Acute Code(s): S42.109A - Fracture of unspecified part of scapula, unspecified shoulder, initial encounter for closed fracture (3) Urinary tract infection: Status: Acute Code(s): N39.0 - Urinary tract infection, site not specified (4) Anticoagulant long-term use: Status: Acute Code(s): Z79.01 - prison (current) use of anticoagulants (5) Elevated INR (international normalized ratio) due to prior anticoagulant medication ingestion: Status: Acute Code(s): R79.1 - Abnormal coagulation profile (6) MURRAY (acute kidney injury): Status: Acute Code(s): N17.9 - Acute kidney failure, unspecified (7) Hyperkalemia: Status: Acute Code(s): E87.5 - Hyperkalemia (8) Toxic metabolic encephalopathy: Status: Acute Code(s): G92.8 - Other toxic encephalopathy (9) Status post revision of total hip replacement: Status: Acute Code(s): Z96.649 - Presence of unspecified artificial hip joint Medications at Discharge Home Medications omeprazole 40 mg capsule,delayed release 40 mg PO BID ACID REFLUX 06/09/23 warfarin 4 mg tablet 6 mg PO DAILY blood thinner 06/30/23 multivitamin (Daily Multi-Vitamin tablet) 1 tab PO DAILY vitamin 07/24/23 ertapenem 1 gram solution for injection 1 g IM Q24H #5 ea 07/31/23 warfarin 4 mg tablet (Jantoven) 4 mg PO DINNER #0 tabs 07/31/23 Hospital Course Operations - (Left total hip arthroplasty) Procedures EKG and - (Shoulder x-ray/chest x-ray/hip and pelvic x-rays/CT brain/CT abdomen and pelvis) Summary of Care Provided Minutes Spent on Discharge: 45 Hospital Course: Mrs. Ashford is a 73-year-old female who presented to the emergency department at [facility] on 07/24/2023 complaining of left-sided shoulder pain and left hip pain after she fell out of bed. Evidently, she had raise the height of the bed overnight and forgot it was elevated and was trying to get out of bed in the morning and fell to the ground when doing so. She landed on her left side. She denied losing consciousness or hitting her head however she did complain of left shoulder pain and left hip pain. She had a known history of a periprosthetic nondisplaced hip fracture which is being managed conservatively however on repeat imaging she now was found to have a large subacute oblique subtrochanteric/proximal left femoral fracture with mild displacement. Of the shoulder revealed a nondisplaced scapular fracture and she was placed in a sling with ongoing care being conservative. Orthopedic surgery evaluated the patient and recommended nonoperative conservative management for her left upper extremity with nonweightbearing to that area for 6 weeks and then a total hip arthroplasty revision on her left hip which was performed on 07/26/2023. She has a history of mechanical mitral valve and atrial fibrillation for which she takes Coumadin and her INR on presentation was therapeutic. She was given vitamin K and started on a heparin drip for bridging purposes in the perioperative period. After surgery postop day 1 we were permitted to restart her Coumadin. It took about 48 hours to get her INR therapeutic again at which time she had a significant jump in her INR ultimately jumped to 7.1. Coumadin was held once she was supratherapeutic and dose was reduced with a large jump initially. Her hospital course was complicated with some MURRAY postoperatively which resolved. Postoperatively she had some ongoing confusion and per discussion with family they were having her evaluated for some dementia. Over the last several months she had suffered from significant deterioration in quality of life and health overall. She was refusing to eat, participate in therapy and intermittently would not take her medications. On 07/30/2023 family was at the bedside and I was able to have an extensive conversation with both her daughter and granddaughter and they both felt that her grandmother would not want to continue living like this and they felt that her overall health and quality of life had been declining significantly especially in the last 6 to 8 months. Hospice was consulted and evaluated the patient on 07/31/2023. They felt she would be appropriate for the inpatient hospice unit and she was discharged there on 07/31/2023. She will has 1 more day of IM antibiotics and I did discuss the capability of continuing her Coumadin as long as she was able to take oral which they stated they would. They may need to transition to Lovenox as I would hate for her cause of to be thrombosis of her mechanical valve. Discharge diagnoses: Left periprosthetic hip fracture Left scapular fracture Enterobacter UTI DM-2 PAF Aortic valve stenosis status post TAVR Mechanical mitral valve History of hypertension Hyperlipidemia GERD Vitamin D deficiency Memory impairment Physical Exam Const no apparent distress Constitutional Narrative: Older, chronically ill-appearing, white female, in bed, appears comfortable and sleeping at this time, does not appear toxic General Appearance: comfortable, well developed, frail and appears older than stated age Nutritional Appearance: overweight HEENT normocephalic and head/scalp atraumatic HEENT Narrative: Patient sleeping soundly Eyes Eyes Narrative: Patient sleeping Neck no lymphadenopathy and supple Neck Narrative: Trachea midline, no thyroid enlargement Resp no retractions and no use of accessory muscles Resp Narrative: Breathing is shallow, diminished significantly at bases bilaterally with few intermittent inspiratory crackles with deeper breathing Auscultation: Negative for rales, rhonchi or wheezes Cardio S1 normal heart sound, S2 normal heart sound, no murmurs, no rub and no gallops; Negative for no clicks Cardio Narrative: Click noted, irregularly irregular rhythm with mild tachycardia GI normal to inspection, nondistended, normoactive bowel sounds, soft to palpation and non-tender Extremity Extremity Narrative: Chronic bilateral lower extremity edema that is pitting in nature and 2+ bilateral lower extremities, LLOYD hose in place, SCDs in place Skin skin turgor normal, no jaundice, no petechiae and no mottling Skin Narrative: Postoperative dressing in place, skin is thin with abrasion on left forearm due to fall, significant anasarca Neuro Neuro Narrative: Unable to perform exam due to patient sleeping Psych Psych Narrative: Sleeping and appears calm Weight / BMI Weight Weight: 70.76 kg Body Mass Index (BMI) 28.5 ABG / Lab / Microbiology Data 07/30/23 05:50 07/30/23 05:50 Laboratory: Laboratory Results - last 24 hr 07/30/23 11:15: POC Glucose 167 H 07/30/23 16:08: POC Glucose 125 H 07/30/23 22:18: POC Glucose 131 H 07/31/23 05:05: PT 52.3 H, INR 5.7 H* 07/31/23 06:29: POC Glucose 125 H Microbiology: Microbiology 07/24/23 11:00 Urine, Catheterized Urine Culture - Final Enterobacter cloacae complex D/C Instructions Discharge Diet: No restrictions Meaningful Use Info Meaningful Use Diagnoses (Choose all that apply): None applicable Discharge Plan Admission Admit Date/Time: 07/24/23 15:28 Primary Reason for Your Visit: Left hip pain after fall Attending Provider: Monique Angel Primary Care Provider: Gwen David Consulting Providers: Apollo Loyd; Apollo Hsu; Adam Tate Instructions Additional Instructions / Restrictions: 1. Patient is chronically anticoagulated with Coumadin. She has a mechanical mitral valve so I would continue INR's and Coumadin dosing as able to prevent thrombosis of her mechanical mitral valve Discharge Orders/Prescriptions Prescriptions: New warfarin [Jantoven] 4 mg Tablet 4 mg PO DINNER Qty: 0 0RF Rx Instructions: On hold as INR is supratherapeutic would anticipate being able to restart tomorrow with goal INR of 2.5-3.5 for mechanical mitral valve ertapenem 1 gram recon soln 1 g IM Q24H Qty: 5 0RF Rx Instructions: x 1 day and then stop Continued omeprazole 40 mg capsule,delayed release(DR/EC) 40 mg PO BID Held warfarin 4 mg tablet 6 mg PO DAILY Hold Instructions: hold Discontinued atorvastatin 40 mg tablet 40 mg PO DAILY colestipol [Colestid] 1 gram tablet 1 g PO DAILY gemfibrozil [Lopid] 600 MG tablet 600 mg PO BIDAC diphenhydramine HCl [Benadryl] 25 mg Capsule 50 mg PO QHS cholecalciferol (vitamin D3) [Vitamin D3] 50 mcg (2,000 unit) Capsule 50 mcg PO DAILY insulin lispro [Humalog KwikPen Insulin] 100 unit/mL Insulin Pen See Protocol subcut TIDAC Qty: 0 0RF Protocol: 4. Sliding Scale Insulin High-Med Dosing Condition: 150-199 mg/dl = 2 units Condition: 200-259 mg/dl = 4 units Condition: 260-324 mg/dl = 6 units Condition: 325-374 mg/dl = 8 units Condition: 375-409 mg/dl = 10 units Condition: 410-449 mg/dl = 11 units Condition: Greater than 449 call physician Protocol Text: - Use for Total Daily Dose of Insulin 56-80 units - Patient who are insulin resistant or septic HIGH MEDIUM DOSING ALGORITHM polyethylene glycol 3350 17 gram Powder In Packet 17 g PO DAILY Qty: 0 0RF acetaminophen [Acetaminophen Extra Strength] 500 mg tablet 1,000 mg PO QHS PRN (Reason: pain) acetaminophen 325 mg capsule 325 mg PO Q4H PRN (Reason: pain) Patient Comments: DO NO EXCEED 4GM IN 24H mirtazapine [Remeron] 15 mg tablet 15 mg PO QHS oxycodone-acetaminophen [Percocet] 5-325 mg tablet 1 tab PO Q6H PRN (Reason: pain) 7 Days Qty: 28 0RF methocarbamol 500 mg tablet 500 mg PO 4X/DAY PRN PRN (Reason: Muscle pain/spasm) Qty: 40 0RF insulin glargine [Lantus Solostar U-100 Insulin] 100 unit/mL (3 mL) insulin pen 10 unit subcut QPM insulin glargine [Lantus Solostar U-100 Insulin] 100 unit/mL (3 mL) insulin pen 15 unit subcut BREAKFAST meclizine 12.5 mg tablet 12.5 mg PO TID PRN (Reason: DIZZINESS ) No Action multivitamin [Daily Multi-Vitamin] Tablet 1 tab PO DAILY Referrals / Follow Up: Gwen David MD [Primary Care Provider] - Disposition Disposition (needs filled in before D/C Order can be placed): Hospice in Medical Facility Charges/Coding Visit Charges Inpatient E&M: 03066 Disch Hosp >30min
== END 2023-07-31 11:46 | disposition hospice, inpatient (51) | DRG 467 ==
LOC: ED 14:44 → MS3 15:38
PROVIDERS: Anesthesiology; Family Medicine; Internal Medicine; Student in an Organized Health Care Education/Training Program; Admitting Provider Family Medicine; Emergency Provider Emergency Medicine; PCP Internal Medicine; Referring Provider Emergency Medicine; Visit Provider Internal Medicine
PROC: 0SPB0JZ Removal of Synthetic Substitute from Left Hip Joint, Open Approach (ICD-10-PCS; CPT 27134; principal; 2023-07-26 12:20)
DX: S72.112A Displaced fracture of greater trochanter of left femur, initial encounter for closed fracture (principal); M97.02XA Periprosthetic fracture around internal prosthetic left hip joint, initial encounter; N17.8 Other acute kidney failure; N39.0 Urinary tract infection, site not specified; E11.9 Type 2 diabetes mellitus without complications; E55.9 Vitamin D deficiency, unspecified; B95.2 Enterococcus as the cause of diseases classified elsewhere; I48.0 Paroxysmal atrial fibrillation; Z79.4 Long term (current) use of insulin; I10 Essential (primary) hypertension; I35.0 Nonrheumatic aortic (valve) stenosis; E78.00 Pure hypercholesterolemia, unspecified; I25.10 Atherosclerotic heart disease of native coronary artery without angina pectoris; K21.9 Gastro-esophageal reflux disease without esophagitis; E87.5 Hyperkalemia; S42.145A Nondisplaced fracture of glenoid cavity of scapula, left shoulder, initial encounter for closed fracture; W06.XXXA Fall from bed, initial encounter; E66.3 Overweight; Z68.28 Body mass index [BMI] 28.0-28.9, adult; Z95.2 Presence of prosthetic heart valve; R41.3 Other amnesia; R45.1 Restlessness and agitation; R79.1 Abnormal coagulation profile; Z79.01 Long term (current) use of anticoagulants; Z79.899 Other long term (current) drug therapy; Z87.891 Personal history of nicotine dependence; Z96.642 Presence of left artificial hip joint; Z66 Do not resuscitate
CPT/HCPCS: 36415; 70450; 71045; 73030; 73502; 74176; 80048; 80053; 81001; 82570; 82962; 83036; 83735; 84100; 84300; 85025; 85027; 85610; 85730; 86850; 86900; 86901; 87077; 87086; 87088; 87186; 93005; 94668; 97162; 97166; 97530; 97535; 99285; C1713; C1776; J2185; J7030; J7040; J7050; J7120; P9047; P9612; A4216; J2405; J3490